=== PATIENT | female | born 1965 | race Caucasian/White ===

== ENCOUNTER 2021-12-23 21:03 | Inpatient (IN) | payer OTHER, SELFPAY ==
--- NOTE | ~2021-12-23 | US_ITS ---
EXAMINATION: US RETROPERITONEAL LIMITED (RENAL ONLY) and renal Doppler exam CLINICAL INFORMATION: Acute kidney insufficiency. Flank pain. Left renal vein thrombus.. COMPARISON: Previous CT of the abdomen and pelvis from yesterday TECHNIQUE: Grayscale and color imaging of the kidneys. Grayscale color and Doppler imaging of the renal arteries and veins. FINDINGS: RIGHT KIDNEY: 10 x 6 x 5.6 cm (SAG x AP x TRV). The kidney is normal in size, contour, and echogenicity. Renal cortical thickness is normal. There are 2 echogenic foci measuring 2 and 4 mm in the midpole questionable for small stones. No stone is appreciated on recent CT. No renal mass. No hydronephrosis. LEFT KIDNEY: 10.6 x 5.4 x 6.2 cm (SAG x AP x TRV). The kidney is normal in size, contour, and echogenicity. Renal cortical thickness is normal. There is a 6 mm echogenic focus in the midpole questionable for stone. No stone is appreciated on yesterday's CT. There is a 1.6 x 1.3 x 1.1 cm cyst in the upper pole. No hydronephrosis. Aortic peak systolic velocity is 87 cm/s. Right renal artery peak systolic velocities are normal measuring 178, 87 and 74 cm/s. Right renal artery to aorta ratio is normal. Resistive indices in the right kidney are slightly elevated measuring 0.8-0.9. The right renal vein is patent. Left renal artery peak systolic velocities are normal measuring 118, 136 and 73 cm/s. Left renal artery to aorta ratio is normal. Resistive indices in the left kidney are slightly elevated measuring 0.8-0.9. The left renal vein is patent. US/US renal BI IMPRESSION: Very limited exam. No evidence of renal vein thrombus. Small bilateral renal echogenic densities questionable for stones. No stone is appreciated on yesterday's CT scan. Small left renal cyst..
--- NOTE | ~2021-12-23 | XR_ITS ---
EXAMINATION: XR CHEST CLINICAL INFORMATION: Chest pain. COMPARISON: None TECHNIQUE: Frontal view of the chest was obtained. FINDINGS: No significant abnormality is noted involving the heart, lungs, mediastinum, bony thorax or soft tissues. XR/XR chest 1V IMPRESSION: No acute cardiopulmonary process.
--- NOTE | ~2021-12-23 | US_ITS ---
EXAMINATION: US VENOUS ULTRASOUND WITH DOPPLER LOWER EXTREMITY, BILATERAL CLINICAL INFORMATION: Lower extremity pain and swelling. COMPARISON: None TECHNIQUE: Ultrasound of the deep veins is performed from the hip to the calf with compression sonography and color and pulse Doppler assessment. Spectral analysis with color-flow imaging is performed. FINDINGS: RIGHT: There is normal venous compression and respiratory variation and augmented flow. The visualized common femoral vein, superficial femoral vein, profunda femoral vein, popliteal vein, and the trifurcation region shows no evidence of deep venous thrombosis. No right popliteal cyst. The subcutaneous soft tissues are unremarkable. LEFT: There is normal venous compression and respiratory variation and augmented flow. The visualized common femoral vein, superficial femoral vein, profunda femoral vein, popliteal vein, and the trifurcation region shows no evidence of deep venous thrombosis. No left popliteal cyst. The subcutaneous soft tissues are unremarkable. If the patient's symptoms persist, followup ultrasound in 5 days 7 days might be of value to exclude proximal propagation from a non-visualized calf vein. US/US venous duplex LE BI IMPRESSION: No evidence for deep venous thrombosis in the visualized veins of the bilateral lower extremities.
--- NOTE | ~2021-12-23 | CT_ITS ---
EXAMINATION: CT ABDOMEN AND PELVIS WITHOUT CONTRAST CLINICAL INFORMATION: Flank pain with acute kidney injury COMPARISON: None TECHNIQUE: Multidetector volumetric imaging was performed from the superior aspect of the liver through the pubic symphysis. Sagittal and coronal reformatted images were obtained on the technologist's workstation. This CT examination was performed using dose optimization techniques as appropriate, variously including the following: *Automated exposure control *Adjustment of mA and/or kV according to patient size (this includes techniques or standardized protocols for targeted exams where dose is matched to indication/reason for exam; i.e. extremities or head) *Use of iterative reconstruction technique DLP: 937 mGy-cm FINDINGS: LUNG BASES: The visualized lung bases are unremarkable. LIVER, GALLBLADDER, AND BILIARY TREE: The liver is normal in size, shape, and attenuation. No focal hepatic lesion or biliary ductal dilatation is present. The gallbladder is unremarkable with no evidence of radiopaque gallstones, gallbladder wall thickening, or obvious pericholecystic inflammatory changes. PANCREAS: Unremarkable. SPLEEN: Unremarkable. ADRENAL GLANDS: Unremarkable. KIDNEYS AND URETERS: The kidneys are normal in size, shape, and attenuation. No hydronephrosis, hydroureter, or calculi seen. There is bilateral nonspecific perinephric stranding, left greater than right. BLADDER: Unremarkable. GASTROINTESTINAL TRACT: The small and large bowel are unremarkable. The appendix has been surgically removed. ABDOMINAL WALL: No significant hernia is appreciated. LYMPH NODES: No retroperitoneal lymphadenopathy. VASCULAR: Calcific plaque present in the infrarenal aorta and iliac arteries without aneurysm. PELVIC VISCERA: An anteverted uterus is present. Tiny calcification present at the fundus on the right. No gross fibroids are seen. An abnormal adnexal mass or free intraperitoneal fluid is not seen. OSSEOUS STRUCTURES: Unremarkable. CT/CT abdomen pelvis wo IV con IMPRESSION: A cause for the patient's flank pain and renal dysfunction is not found. There is some nonspecific perinephric stranding but there is no hydronephrosis or calculi seen. Fleischner guidelines were followed.
--- NOTE | ~2021-12-23 | CT_ITS ---
PROCEDURE: CT GUIDED BIOPSY, KIDNEY CLINICAL INFORMATION: Renal failure. COMPARISON: None TECHNIQUE: Procedure and risks and benefits including bleeding, infection and injury to the kidney were discussed with the patient and informed consent was obtained. The patient was positioned in the prone position. Limited axial images through the kidneys were performed. The left flank was prepped and draped in usual sterile fashion. The skin and soft tissues were anesthetized with 1% lidocaine plain. Using CT guidance and a coaxial system, access to the lower pole the left kidney was obtained. Two (2) 18-gauge core biopsies were obtained. No significant bleeding was observed. Hemostasis was achieved using 3 Gelfoam pledgets. The patient received 0.5 mg of Versed and 25 mcg of fentanyl intravenously during the procedure. Conscious sedation was provided by registered nurse under my direct supervision. Total sedation time was [address] examination was performed using dose optimization techniques as appropriate, variously including the following: *Automated exposure control *Adjustment of mA and/or kV according to patient size (this includes techniques or standardized protocols for targeted exams where dose is matched to indication/reason for exam; i.e. extremities or head) *Use of iterative reconstruction technique DLP: 213 mGy-cm FINDINGS: The kidneys are normal appearing. There is shotty retroperitoneal lymphadenopathy. Postprocedure imaging demonstrates no hematoma surrounding the lower pole the left kidney. CT/CT biopsy renal RT IMPRESSION: CT-guided left renal biopsy.
--- NOTE | ~2021-12-23 | US_ITS ---
EXAMINATION: US RETROPERITONEAL LIMITED (RENAL ONLY) and renal Doppler exam CLINICAL INFORMATION: Acute kidney insufficiency. Flank pain. Left renal vein thrombus.. COMPARISON: Previous CT of the abdomen and pelvis from yesterday TECHNIQUE: Grayscale and color imaging of the kidneys. Grayscale color and Doppler imaging of the renal arteries and veins. FINDINGS: RIGHT KIDNEY: 10 x 6 x 5.6 cm (SAG x AP x TRV). The kidney is normal in size, contour, and echogenicity. Renal cortical thickness is normal. There are 2 echogenic foci measuring 2 and 4 mm in the midpole questionable for small stones. No stone is appreciated on recent CT. No renal mass. No hydronephrosis. LEFT KIDNEY: 10.6 x 5.4 x 6.2 cm (SAG x AP x TRV). The kidney is normal in size, contour, and echogenicity. Renal cortical thickness is normal. There is a 6 mm echogenic focus in the midpole questionable for stone. No stone is appreciated on yesterday's CT. There is a 1.6 x 1.3 x 1.1 cm cyst in the upper pole. No hydronephrosis. Aortic peak systolic velocity is 87 cm/s. Right renal artery peak systolic velocities are normal measuring 178, 87 and 74 cm/s. Right renal artery to aorta ratio is normal. Resistive indices in the right kidney are slightly elevated measuring 0.8-0.9. The right renal vein is patent. Left renal artery peak systolic velocities are normal measuring 118, 136 and 73 cm/s. Left renal artery to aorta ratio is normal. Resistive indices in the left kidney are slightly elevated measuring 0.8-0.9. The left renal vein is patent. US/US renal doppler IMPRESSION: Very limited exam. No evidence of renal vein thrombus. Small bilateral renal echogenic densities questionable for stones. No stone is appreciated on yesterday's CT scan. Small left renal cyst..
[2021-12-23 21:08] VITALS: BP 208/89; PULSE 86; RESP 19; TEMP 36.8; O2SAT 99; BMI 44.9
--- NOTE | 2021-12-23 21:11 | ECG_ITS ---
Test Reason : CHEST PAIN Blood Pressure : / mmHG Vent. Rate : 079 BPM Atrial Rate : 079 BPM P-R Int : 134 ms QRS Dur : 098 ms QT Int : 424 ms P-R-T Axes : 042 002 066 degrees QTc Int : 486 ms Normal sinus rhythm Minimal voltage criteria for LVH, may be normal variant ( [place] product ) Prolonged QT Nonspecific T wave abnormality Abnormal ECG When compared with ECG of 07-MAY-2007 02:01, Nonspecific T wave abnormality now evident in Lateral leads Referred By: Generic ED Physician Electronically Signed By:EDWARD GUY
[2021-12-23 21:20] VITALS: BP 190/90
[2021-12-23 22:02] LABS: MANUAL DIFF FLAG NO
[2021-12-23 22:03] LABS: Basophils Percent Auto 0.5 % (0-2); Eosinophils Absolute Auto 0.2 X10*3/uL (0.0-0.4); Eosinophils Percent Auto 2.9 % (0-4); Hematocrit 25.1 % (37.0-47.0); Hemoglobin 8.4 g/dl (12.0-16.0); Imm Gran Abs Auto 0.03 X10*3/uL (0.00-0.03); Imm Gran Pct Auto 0.4 % (0.0-0.4); Lymphocytes Absolute Auto 0.8 X10*3/uL (1.2-4.9); Lymphocytes Percent Auto 11.2 % (20-40); Mean Corpuscular HGB Conc 33.5 g/dl (31.0-35.0); Mean Corpuscular Hemoglobin 27.5 pg (27.0-33.0); Mean Corpuscular Volume 82.3 fL (80.0-98.0); Mean Platelet Volume 9.8 fL (9.4-12.3); Monocytes Absolute Auto 0.4 X10*3/uL (0.1-1.2); Monocytes Percent Auto 5.9 % (2-11); Neutrophils Percent Auto 79.1 % (45-73); Platelet Count 237 X10*3/uL (160-400); Red Blood Count 3.05 X10*6/uL (4.20-5.50); Red Cell Distribution Width 14.4 % (11.0-16.0); White Blood Count 7.5 X10*3/uL (4.8-10.8)
[2021-12-23 22:07] LABS: Appearance Urine Clear; Color Urine Yellow; Glucose Urine UA >=1000 mg/dL (Negative); Leukocyte Esterase Urine Negative (Negative); Nitrite Urine Negative (Negative); PH 6.5 (5.0-9.0); Urine Blood Small (1+) (Negative); Urine Ketones Negative (Negative); Urine Protein 300 (3+) mg/dL (Neg-Trace)
[2021-12-23 22:13] LABS: Bacteria Urine None Seen (None Seen); Hyaline Casts Urine 0-2 /LPF (0-2); Squamous Epithelial Cell Urine 0-2 /HPF (0-2); WBC Urine 0-5 /HPF (0-5)
[2021-12-23 22:26] LABS: Troponin-I High Sensitivity 5.9 ng/L (<3.5-17.0)
[2021-12-23 22:31] LABS: Anion Gap 16 (12-20); Blood Urea Nitrogen 59 mg/dL (9-16); Calcium 7.9 mg/dL (8.4-10.2); Carbon Dioxide 19 mmol/L (22-29); Chloride 102 mmol/L (96-108); Estimated Glomerular Filt Rate 10; Glucose Random 673 mg/dL (60-115); Potassium 4.2 mmol/L (3.3-5.1); Sodium 133 mmol/L (135-145)
--- NOTE | 2021-12-23 22:35 | ED.CHESTPAIN ---
HPI - Chest Pain General Chief Complaint: Chest Pain Stated Complaint: abnormal labs,chest pains Time Seen by Provider: 12/23/21 22:30 Source: patient Mode of arrival: ambulatory Limitations: no limitations History of Present Illness HPI narrative: 56-year-old past medical history significant for spondyloepiphyseal dysplasia, asthma presenting to the emergency department with abnormal labs per her primary care provider, patient unclear of what labs were abnormal however patient has multiple complaints including severe diffuse abdominal pain, nausea, vomiting , chest pressure, and lightheadedness since this morning. Patient tells me she has not been able to keep anything down today, she reports that she has been vomiting continuously throughout the day and feels very weak and fatigued. Patient also notes that she has been peeing a lot less than usual today and is experiencing a dry mouth. Patient reports that she is having substernal chest pressure, nonradiating, denies shortness of breath. She tells me she feels like she is slightly lightheaded and maybe has a small headache coming on, feels like her typical. MD complaint: chest pain and chest discomfort Related Data Allergies Allergy/AdvReac Type Severity Reaction Status Date / Time cortex Eucommiae Allergy Severe ANAPHYLAXIS Verified 12/23/21 21:10 [CORTEX EUCOMMIAE] egg [EGG] Allergy Severe VOMITING Verified 12/23/21 21:10 latex [LATEX] Allergy Severe HIVES Verified 12/23/21 21:10 Penicillins [PENICILLINS] Allergy Severe HIVES Verified 12/23/21 21:10 vancomycin [VANCOMYCIN] Allergy Severe HIVES Verified 12/23/21 21:10 Review of Systems Review of Systems: Constitutional : No Weight loss, No Fever, No Chills, + Fatigue, + Malaise ENT/Mouth : No sore throat, No Rhinorrhea Eyes: No Eye Pain, No Swelling, No Redness Cardiovascular : + Chest Pain, No SOB, No Dyspnea on Exertion, No Orthopnea, No Edema, No Palpitations Respiratory : No Cough, No Sputum, No Wheezing Gastrointestinal : + Nausea, + Vomiting, No Diarrhea, No Constipation, + abdominal Pain, No Hematochezia, No Melena Genitourinary : No Dysuria, No Urinary Frequency, No Hematuria, Musculoskeletal : No joint pain, No Myalgias, No Joint Swelling Skin : No Skin Lesions, No rash Neuro : No Weakness, No Numbness, No Dizziness, No Headache Psych : No Anxiety/Panic, No Depression All other systems reviewed and are negative Yes all other systems are reviewed and are negative [facility] Past Medical History Attestation statement: The following information was validated with the patient. Source: old records reviewed and nursing notes reviewed Physical Exam Vital Signs: Vital Signs: Last Vital Signs Temp 98.2 F 12/23/21 21:08 Pulse 86 12/23/21 21:08 Resp 19 12/23/21 21:08 BP 208/89 H 12/23/21 21:08 Pulse Ox 99 12/23/21 21:08 O2 Del Method 12/23/21 21:08 BMI result Body Mass Index 44.9 Patient extreamly hypertensive. Appearance: Alert.? Oriented X3.? No acute distress.? Head: Normocephalic, atraumatic, no step-offs or deformities Eyes: Pupils equal, round and reactive to light.? Extraocular movements intact. ENT: Pharynx normal.? Neck: Normal inspection.? Neck supple.? CVS: Normal heart rate and rhythm.? Pulses normal.? Respiratory: No respiratory distress.? Breath sounds normal.? Abdomen: Soft and + RLQ tenderness.? Skin: Skin warm and dry.? Normal skin color.? Normal skin turgor.? Extremities: No lower extremity edema.? No calf ttp. 5/5 strength to bilateral upper and lower extremities. 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 Back: No CVA tenderness Neuro: Oriented X 3.? No motor deficit.? No sensory deficit. CN 2-12 intact . Normal [id number], steady tandem gait with normal coordination MDM - Chest Pain Lab Data Result diagrams: 12/23/21 21:49 12/23/21 21:49 Labs: Lab Results 12/23/21 12/23/21 12/23/21 Range/Units 21:49 21:49 21:49 WBC 7.5 (4.8-10.8) X10*3/uL RBC 3.05 L (4.20-5.50) X10*6/uL Hgb 8.4 L (12.0-16.0) g/dl Hct 25.1 L (37.0-47.0) % MCV 82.3 (80.0-98.0) fL MCH 27.5 (27.0-33.0) pg MCHC 33.5 (31.0-35.0) g/dl RDW 14.4 (11.0-16.0) % Plt Count 237 (160-400) X10*3/uL MPV 9.8 (9.4-12.3) fL Immature Gran % (Auto) 0.4 (0.0-0.4) % Neut % (Auto) 79.1 H (45-73) % Lymph % (Auto) 11.2 L (20-40) % [place] % (Auto) 5.9 (2-11) % Eos % (Auto) 2.9 (0-4) % Baso % (Auto) 0.5 (0-2) % Lymph # (Auto) 0.8 L (1.2-4.9) X10*3/uL [place] # (Auto) 0.4 (0.1-1.2) X10*3/uL Eos # (Auto) 0.2 (0.0-0.4) X10*3/uL Baso # (Auto) 0.0 (0.0-0.2) X10*3/uL Abs Immat Gran (auto) 0.03 (0.00-0.03) X10*3/uL Absolute Neuts (auto) 6.0 (2.0-8.3) x10*3/uL Absolute Nucleated RBC 0.000 (0.0-0.012) X10*3/uL Nucleated RBC % (auto) 0.0 (0.0-0.2) /100WBC Sodium 133 L (135-145) mmol/L Potassium 4.2 (3.3-5.1) mmol/L Chloride 102 (96-108) mmol/L Carbon Dioxide 19 L (22-29) mmol/L Anion Gap 16 (12-20) BUN 59 H (9-16) mg/dL Creatinine 4.74 H* (0.5-1.4) mg/dL Estim Creat Clear Calc 15.0 Estimated GFR 10 Random Glucose 673 H* (60-115) mg/dL Calcium 7.9 L (8.4-10.2) mg/dL Troponin I High Sens 5.9 (<3.5-17.0) ng/L Urine Color Urine Appearance Urine pH (5.0-9.0) Ur Specific [place] (1.005-1.025) Urine Protein (Neg-Trace) mg/dL Urine Glucose (UA) (Negative) mg/dL Urine Ketones (Negative) mg/dL Urine Blood (Negative) Urine Nitrite (Negative) Ur Leukocyte Esterase (Negative) Urine RBC (0-2) /HPF Urine WBC (0-5) /HPF Ur Squamous Epith Cells (0-2) /HPF Urine Bacteria (None Seen) Hyaline Casts (0-2) /LPF 12/23/21 Range/Units 21:49 WBC (4.8-10.8) X10*3/uL RBC (4.20-5.50) X10*6/uL Hgb (12.0-16.0) g/dl Hct (37.0-47.0) % MCV (80.0-98.0) fL MCH (27.0-33.0) pg MCHC (31.0-35.0) g/dl RDW (11.0-16.0) % Plt Count (160-400) X10*3/uL MPV (9.4-12.3) fL Immature Gran % (Auto) (0.0-0.4) % Neut % (Auto) (45-73) % Lymph % (Auto) (20-40) % [place] % (Auto) (2-11) % Eos % (Auto) (0-4) % Baso % (Auto) (0-2) % Lymph # (Auto) (1.2-4.9) X10*3/uL [place] # (Auto) (0.1-1.2) X10*3/uL Eos # (Auto) (0.0-0.4) X10*3/uL Baso # (Auto) (0.0-0.2) X10*3/uL Abs Immat Gran (auto) (0.00-0.03) X10*3/uL Absolute Neuts (auto) (2.0-8.3) x10*3/uL Absolute Nucleated RBC (0.0-0.012) X10*3/uL Nucleated RBC % (auto) (0.0-0.2) /100WBC Sodium (135-145) mmol/L Potassium (3.3-5.1) mmol/L Chloride (96-108) mmol/L Carbon Dioxide (22-29) mmol/L Anion Gap (12-20) BUN (9-16) mg/dL Creatinine (0.5-1.4) mg/dL Estim Creat Clear Calc Estimated GFR Random Glucose (60-115) mg/dL Calcium (8.4-10.2) mg/dL Troponin I High Sens (<3.5-17.0) ng/L Urine Color Yellow Urine Appearance Clear Urine pH 6.5 (5.0-9.0) Ur Specific [place] 1.020 (1.005-1.025) Urine Protein 300 (3+) H (Neg-Trace) mg/dL Urine Glucose (UA) >=1000 H (Negative) mg/dL Urine Ketones Negative (Negative) mg/dL Urine Blood Small (1+) H (Negative) Urine Nitrite Negative (Negative) Ur Leukocyte Esterase Negative (Negative) Urine RBC 6-10 H (0-2) /HPF Urine WBC 0-5 (0-5) /HPF Ur Squamous Epith Cells 0-2 (0-2) /HPF Urine Bacteria None Seen (None Seen) Hyaline Casts 0-2 (0-2) /LPF
[2021-12-23 22:56] LABS: Venous Blood Gas Refer to POC result
[2021-12-23 22:57] VITALS: BP 198/90; PULSE 77; RESP 21; O2SAT 99
--- NOTE | 2021-12-23 23:03 | ED_ITS ---
HPI - General Adult General Chief complaint: Chest Pain Stated complaint: abnormal labs,chest pains Time Seen by Provider: 12/23/21 22:30 History of Present Illness HPI narrative: Patient 56 years old with history of hypertension, diabetes, CKD stage 2? Sent by PCP office for creatinine of 4.7 and blood glucose of 673 patient complaining of bilateral flank pain for last week or so also urinating a lot no fever no chills patient been followed by a singer and unloader and according to her during last visit kidneys were doing good HB A1c around 7 fairly compliant to the insulin no fever no chills no new medication no NSAID use Related Data Home Medications Medication Instructions Recorded Confirmed amlodipine 2.5 mg tablet 1 tab PO DAILY 12/24/21 12/24/21 aspirin 81 mg chewable tablet 1 tab PO DAILY 12/24/21 12/24/21 atorvastatin 80 mg tablet 1 tab PO DAILY 12/24/21 12/24/21 carvedilol 12.5 mg tablet 1 tab PO BID 12/24/21 12/24/21 cholecalciferol (vitamin D3) 50 1 cap PO DAILY 12/24/21 12/24/21 mcg (2,000 unit) capsule (Vitamin D3) cholecalciferol (vitamin D3) 50 1 cap PO DAILY 12/24/21 12/24/21 mcg (2,000 unit) capsule (Vitamin D3) cyanocobalamin (vitamin B-12) 1 tab PO DAILY 12/24/21 12/24/21 1,000 mcg tablet (Vitamin B-12) famotidine 20 mg tablet 1 tab PO DAILY 12/24/21 12/24/21 gabapentin 100 mg capsule 1 cap PO TID 12/24/21 12/24/21 insulin glargine 100 unit/mL (3 unit subcut DAILY PRN Hyperglycemia 12/24/21 mL) subcutaneous pen (Lantus Solostar U-100 Insulin) insulin lispro 100 unit/mL subcut 12/24/21 subcutaneous pen lactulose 10 gram/15 mL oral PO PRN Constipation 12/24/21 solution levetiracetam 500 mg tablet 1 tab PO BID 12/24/21 12/24/21 loperamide 2 mg capsule 2 cap PO BID 12/24/21 12/24/21 pantoprazole 40 mg tablet,delayed 1 tab PO DAILY 12/24/21 12/24/21 release semaglutide 1 mg/dose (2 mg/1.5 mg subcut 12/24/21 mL) subcutaneous pen injector (Ozempic) topiramate 25 mg tablet 1 tab PO DAILY 12/24/21 12/24/21 Allergies Allergy/AdvReac Type Severity Reaction Status Date / Time cortex Eucommiae Allergy Severe ANAPHYLAXIS Verified 12/23/21 21:10 [CORTEX EUCOMMIAE] egg [EGG] Allergy Severe VOMITING Verified 12/23/21 21:10 latex [LATEX] Allergy Severe HIVES Verified 12/23/21 21:10 Penicillins [PENICILLINS] Allergy Severe HIVES Verified 12/23/21 21:10 vancomycin [VANCOMYCIN] Allergy Severe HIVES Verified 12/23/21 21:10 Review of Systems Review of Systems: Yes all other systems are reviewed and are negative [facility] Past Medical History Medical History (Updated 12/24/21 @ 03:35 by Saleem Gresham MD) Diabetes Hyperlipidemia Hypertension Lower back pain Partial deafness Sleep apnea Social History Social History Alcohol intake: never Patient Tobacco Use Status: Never used Tobacco Use of substances other than those prescribed or required for medical reasons: No Advance Directives: No Advance Directives Information Provided: Yes Patient : No Physical Exam ED Vital Signs: Vital Signs - 24 hr 12/23/21 21:08 12/23/21 22:57 12/23/21 23:37 Temperature 98.2 F Pulse Rate 86 77 85 Respiratory Rate 19 21 H 16 Blood Pressure 208/89 H 198/90 H 162/83 H Pulse Oximetry 99 99 Oxygen Delivery Method Room Air Room Air Room Air 12/24/21 01:41 12/24/21 01:55 12/23/21 21:20 Temperature Pulse Rate 66 77 Respiratory Rate 18 13 Blood Pressure 191/104 H 201/76 H 190/90 H Pulse Oximetry 100 100 Oxygen Delivery Method Room Air Room Air 12/24/21 02:38 12/24/21 03:24 Temperature Pulse Rate 69 77 Respiratory Rate 12 18 Blood Pressure 169/75 H 174/72 H Pulse Oximetry 99 97 Oxygen Delivery Method Room Air Room Air BMI result Body Mass Index 44.9 Appearance: Alert. Oriented X3. No acute distress. Eyes:pallor+ ENT: Pharynx normal. Oral Mucosa moist Neck: Normal inspection. Neck supple. CVS: Normal heart rate and rhythm. Pulses normal. Respiratory: No respiratory distress. Equal air entry bilateral, no wheezing/rales/rhonchi Abdomen: Soft and nontender. Bowel sounds are present, no mass palpable, no CVA tenderness Skin: Skin warm and dry. Normal skin color. Normal skin turgor. Extremities: No lower extremity edema. No calf tenderness Neuro: Oriented X 3. No motor deficit. No sensory deficit.No cerebellar signs , cranial nerves II-XII intact Medical Decision Making MDM Narrative Medical decision making narrative: Patient with hyperglycemia and EMIL with history of diabetes will admit patient for further management Lab Data Lab results reviewed: Yes I reviewed the patient's lab results. Result diagrams: 12/24/21 05:06 12/24/21 00:44 Labs: Lab Results 12/23/21 12/23/21 12/23/21 Range/Units 21:49 21:49 21:49 WBC 7.5 (4.8-10.8) X10*3/uL RBC 3.05 L (4.20-5.50) X10*6/uL Hgb 8.4 L (12.0-16.0) g/dl Hct 25.1 L (37.0-47.0) % MCV 82.3 (80.0-98.0) fL MCH 27.5 (27.0-33.0) pg MCHC 33.5 (31.0-35.0) g/dl RDW 14.4 (11.0-16.0) % Plt Count 237 (160-400) X10*3/uL MPV 9.8 (9.4-12.3) fL Immature Gran % (Auto) 0.4 (0.0-0.4) % Neut % (Auto) 79.1 H (45-73) % Lymph % (Auto) 11.2 L (20-40) % [place] % (Auto) 5.9 (2-11) % Eos % (Auto) 2.9 (0-4) % Baso % (Auto) 0.5 (0-2) % Lymph # (Auto) 0.8 L (1.2-4.9) X10*3/uL [place] # (Auto) 0.4 (0.1-1.2) X10*3/uL Eos # (Auto) 0.2 (0.0-0.4) X10*3/uL Baso # (Auto) 0.0 (0.0-0.2) X10*3/uL Abs Immat Gran (auto) 0.03 (0.00-0.03) X10*3/uL Absolute Neuts (auto) 6.0 (2.0-8.3) x10*3/uL Absolute Nucleated RBC 0.000 (0.0-0.012) X10*3/uL Nucleated RBC % (auto) 0.0 (0.0-0.2) /100WBC VBG pH (7.32-7.43) VBG pCO2 mmHg VBG pO2 mmHg VBG HCO3 (22-26) mmol/L VBG O2 Saturation % VBG Base Excess mmol/L Sodium 133 L (135-145) mmol/L Potassium 4.2 (3.3-5.1) mmol/L Chloride 102 (96-108) mmol/L Carbon Dioxide 19 L (22-29) mmol/L Anion Gap 16 (12-20) BUN 59 H (9-16) mg/dL Creatinine 4.74 H* (0.5-1.4) mg/dL Estim Creat Clear Calc 15.0 Estimated GFR 10 POC Glucose (60-115) mg/dL Random Glucose 673 H* (60-115) mg/dL Calcium 7.9 L (8.4-10.2) mg/dL Total Bilirubin 0.2 (0.0-1.0) mg/dL Direct Bilirubin < 0.2 (0.0-0.5) mg/dL AST 10 (5-31) U/L ALT 14 (0-31) U/L Alkaline Phosphatase 142 H (39-117) U/L Troponin I High Sens 5.9 (<3.5-17.0) ng/L Total Protein 6.6 (6.5-8.0) g/dL Albumin 3.1 L (3.5-5.0) g/dL Lipase 93 H (8-78) U/L Urine Color Urine Appearance Urine pH (5.0-9.0) Ur Specific [place] (1.005-1.025) Urine Protein (Neg-Trace) mg/dL Urine Glucose (UA) (Negative) mg/dL Urine Ketones (Negative) mg/dL Urine Blood (Negative) Urine Nitrite (Negative) Ur Leukocyte Esterase (Negative) Urine RBC (0-2) /HPF Urine WBC (0-5) /HPF Ur Squamous Epith Cells (0-2) /HPF Urine Bacteria (None Seen) Hyaline Casts (0-2) /LPF Acetone, Qual (Negative) 12/23/21 12/23/21 12/23/21 Range/Units 21:49 22:42 22:50 WBC (4.8-10.8) X10*3/uL RBC (4.20-5.50) X10*6/uL Hgb (12.0-16.0) g/dl Hct (37.0-47.0) % MCV (80.0-98.0) fL MCH (27.0-33.0) pg MCHC (31.0-35.0) g/dl RDW (11.0-16.0) % Plt Count (160-400) X10*3/uL MPV (9.4-12.3) fL Immature Gran % (Auto) (0.0-0.4) % Neut % (Auto) (45-73) % Lymph % (Auto) (20-40) % [place] % (Auto) (2-11) % Eos % (Auto) (0-4) % Baso % (Auto) (0-2) % Lymph # (Auto) (1.2-4.9) X10*3/uL [place] # (Auto) (0.1-1.2) X10*3/uL Eos # (Auto) (0.0-0.4) X10*3/uL Baso # (Auto) (0.0-0.2) X10*3/uL Abs Immat Gran (auto) (0.00-0.03) X10*3/uL Absolute Neuts (auto) (2.0-8.3) x10*3/uL Absolute Nucleated RBC (0.0-0.012) X10*3/uL Nucleated RBC % (auto) (0.0-0.2) /100WBC VBG pH 7.27 L (7.32-7.43) VBG pCO2 36 mmHg VBG pO2 51 mmHg VBG HCO3 17 L (22-26) mmol/L VBG O2 Saturation 79.0 % VBG Base Excess -8.8 mmol/L Sodium (135-145) mmol/L Potassium (3.3-5.1) mmol/L Chloride (96-108) mmol/L Carbon Dioxide (22-29) mmol/L Anion Gap (12-20) BUN (9-16) mg/dL Creatinine (0.5-1.4) mg/dL Estim Creat Clear Calc Estimated GFR POC Glucose (60-115) mg/dL Random Glucose (60-115) mg/dL Calcium (8.4-10.2) mg/dL Total Bilirubin (0.0-1.0) mg/dL Direct Bilirubin (0.0-0.5) mg/dL AST (5-31) U/L ALT (0-31) U/L Alkaline Phosphatase (39-117) U/L Troponin I High Sens (<3.5-17.0) ng/L Total Protein (6.5-8.0) g/dL Albumin (3.5-5.0) g/dL Lipase (8-78) U/L Urine Color Yellow Urine Appearance Clear Urine pH 6.5 (5.0-9.0) Ur Specific [place] 1.020 (1.005-1.025) Urine Protein 300 (3+) H (Neg-Trace) mg/dL Urine Glucose (UA) >=1000 H (Negative) mg/dL Urine Ketones Negative (Negative) mg/dL Urine Blood Small (1+) H (Negative) Urine Nitrite Negative (Negative) Ur Leukocyte Esterase Negative (Negative) Urine RBC 6-10 H (0-2) /HPF Urine WBC 0-5 (0-5) /HPF Ur Squamous Epith Cells 0-2 (0-2) /HPF Urine Bacteria None Seen (None Seen) Hyaline Casts 0-2 (0-2) /LPF Acetone, Qual Negative (Negative) 12/23/21 12/24/21 Range/Units 23:55 00:44 WBC (4.8-10.8) X10*3/uL RBC (4.20-5.50) X10*6/uL Hgb (12.0-16.0) g/dl Hct (37.0-47.0) % MCV (80.0-98.0) fL MCH (27.0-33.0) pg MCHC (31.0-35.0) g/dl RDW (11.0-16.0) % Plt Count (160-400) X10*3/uL MPV (9.4-12.3) fL Immature Gran % (Auto) (0.0-0.4) % Neut % (Auto) (45-73) % Lymph % (Auto) (20-40) % [place] % (Auto) (2-11) % Eos % (Auto) (0-4) % Baso % (Auto) (0-2) % Lymph # (Auto) (1.2-4.9) X10*3/uL [place] # (Auto) (0.1-1.2) X10*3/uL Eos # (Auto) (0.0-0.4) X10*3/uL Baso # (Auto) (0.0-0.2) X10*3/uL Abs Immat Gran (auto) (0.00-0.03) X10*3/uL Absolute Neuts (auto) (2.0-8.3) x10*3/uL Absolute Nucleated RBC (0.0-0.012) X10*3/uL Nucleated RBC % (auto) (0.0-0.2) /100WBC VBG pH (7.32-7.43) VBG pCO2 mmHg VBG pO2 mmHg VBG HCO3 (22-26) mmol/L VBG O2 Saturation % VBG Base Excess mmol/L Sodium 137 (135-145) mmol/L Potassium 3.5 (3.3-5.1) mmol/L Chloride 108 (96-108) mmol/L Carbon Dioxide 16 L (22-29) mmol/L Anion Gap 17 (12-20) BUN 56 H (9-16) mg/dL Creatinine 4.32 H* (0.5-1.4) mg/dL Estim Creat Clear Calc 16.5 Estimated GFR 11 POC Glucose 252 H (60-115) mg/dL Random Glucose 197 H D (60-115) mg/dL Calcium 7.8 L (8.4-10.2) mg/dL Total Bilirubin (0.0-1.0) mg/dL Direct Bilirubin (0.0-0.5) mg/dL AST (5-31) U/L ALT (0-31) U/L Alkaline Phosphatase (39-117) U/L Troponin I High Sens (<3.5-17.0) ng/L Total Protein (6.5-8.0) g/dL Albumin (3.5-5.0) g/dL Lipase (8-78) U/L Urine Color Urine Appearance Urine pH (5.0-9.0) Ur Specific [place] (1.005-1.025) Urine Protein (Neg-Trace) mg/dL Urine Glucose (UA) (Negative) mg/dL Urine Ketones (Negative) mg/dL Urine Blood (Negative) Urine Nitrite (Negative) Ur Leukocyte Esterase (Negative) Urine RBC (0-2) /HPF Urine WBC (0-5) /HPF Ur Squamous Epith Cells (0-2) /HPF Urine Bacteria (None Seen) Hyaline Casts (0-2) /LPF Acetone, Qual (Negative) ECG Data Attestation: I personally reviewed and interpreted this ECG as follows: Interpretation: Normal sinus rhythm of 79 beats per minute LVH no acute ST wave changes no acute ischemia Critical Care Time Critical Care Time Critical Care Time: Yes Total Critical Care Time: 55 Attestation: I spent 55 minutes of critical care, with interventions, assessments, speaking to patient, consultants, and family. Discharge Plan Discharge Clinical Impression: Acute renal failure (ARF), Hyperglycemia due to diabetes mellitus, Metabolic acidosis Patient Disposition: Admitted As Inpatient
[2021-12-23] MEDS: Insulin Regular, Human 100 UNIT/ML 3 ML VIAL 10 UNIT IVPUSH (23:05)
[2021-12-23] MEDS: 0.9 % Sodium Chloride 1,000 ML 999 ML IV ×2 (23:07→23:08)
--- NOTE | 2021-12-23 23:13 | PC.NURSE ---
pt a&ox3, hypertensive - other vss, medicated per provider order, 20GIV placed in right AC by triage nurse, NaCl running.
[2021-12-23 23:19] LABS: Acetone, serum QL Negative (Negative)
[2021-12-23 23:20] LABS: Alanine Aminotransferase 14 U/L (0-31); Albumin Level 3.1 g/dL (3.5-5.0); Alkaline Phosphatase 142 U/L (39-117); Aspartate Amino Transferase 10 U/L (5-31); Bilirubin Direct < 0.2 mg/dL (0.0-0.5); Bilirubin Total 0.2 mg/dL (0.0-1.0); Lipase 93 U/L (8-78); Total Protein 6.6 g/dL (6.5-8.0)
[2021-12-23 23:23] LABS: VBG Base Excess -8.8 mmol/L; VBG HCO3 17 mmol/L (22-26); VBG pCO2 36 mmHg; VBG pH 7.27 (7.32-7.43); VBG pO2 51 mmHg
[2021-12-23 23:37] VITALS: BP 162/83; PULSE 85; RESP 16
[2021-12-24] VITALS (14 sets, daily range): BP systolic 141–201; BP diastolic 66–104; PULSE 59–77; RESP 10–20; O2SAT 72–100
[2021-12-24] LABS: Glucose, Whole Blood 252 mg/dL (60-115)
[2021-12-24] MEDS: ondansetron HCL 4 MG/2 ML VIAL IVPUSH (00:13)
[2021-12-24] MEDS: Morphine Sulfate 4 MG/ML CARTRIDGE IVPUSH (00:13)
[2021-12-24] MEDS: Midazolam HCl/PF 2 MG/2 ML VIAL 1 MG IVPUSH (00:36)
--- NOTE | 2021-12-24 00:39 | PC.NURSE ---
pt reporting 10/10 pain in bilateral lower extremities - muscle cramping/spasms. pt remains hypertensive, provider notified. medicated per provider order. med rec complete.
[2021-12-24 01:08] LABS: Anion Gap 17 (12-20); Blood Urea Nitrogen 56 mg/dL (9-16); Calcium 7.8 mg/dL (8.4-10.2); Carbon Dioxide 16 mmol/L (22-29); Chloride 108 mmol/L (96-108); Creatinine Clr Calc Pharmacy 16.5; Estimated Glomerular Filt Rate 11; Glucose Random 197 mg/dL (60-115); Potassium 3.5 mmol/L (3.3-5.1); Sodium 137 mmol/L (135-145)
[2021-12-24] MEDS: Sodium Bicarbonate 8.4% 50 MEQ/50 ML SYRINGE IVPUSH (01:49)
[2021-12-24] MEDS: carvediloL 12.5 MG TABLET PO ×3 (02:05→21:58)
[2021-12-24] MEDS: amLODIPine Besylate 5 MG TABLET 2.5 MG PO (02:05)
--- NOTE | 2021-12-24 02:07 | PC.NURSE ---
pt a&ox3, vss - hypertensive, medicated per provider order.
--- NOTE | 2021-12-24 03:25 | PC.NURSE ---
pt is currently asleep, respirations even and unlabored, in no apparent distress at this time, vs stable and ns on the monitor
[2021-12-24] MEDS: Lactated Ringers 1,000 ML 100 ML IVCONT ×2 (04:37→14:21)
--- NOTE | 2021-12-24 04:47 | PC.NURSE ---
pt alert and oriented, skin appropriate for ethnicity, pt reports severe cramping behind her knees states that they also feel very warm. states this has never happened in the past
[2021-12-24 05:34] LABS: MANUAL DIFF FLAG NO
[2021-12-24 05:36] LABS: Basophils Percent Auto 0.4 % (0-2); Eosinophils Absolute Auto 0.2 X10*3/uL (0.0-0.4); Eosinophils Percent Auto 2.9 % (0-4); Imm Gran Abs Auto 0.04 X10*3/uL (0.00-0.03); Imm Gran Pct Auto 0.5 % (0.0-0.4); Lymphocytes Percent Auto 11.7 % (20-40); Mean Corpuscular HGB Conc 33.3 g/dl (31.0-35.0); Mean Corpuscular Hemoglobin 27.7 pg (27.0-33.0); Mean Platelet Volume 9.9 fL (9.4-12.3); Monocytes Absolute Auto 0.6 X10*3/uL (0.1-1.2); Monocytes Percent Auto 6.7 % (2-11); Neutrophils Absolute Auto 6.4 x10*3/uL (2.0-8.3); Neutrophils Percent Auto 77.8 % (45-73); Platelet Count 244 X10*3/uL (160-400); Red Blood Count 2.89 X10*6/uL (4.20-5.50); Red Cell Distribution Width 14.3 % (11.0-16.0); White Blood Count 8.2 X10*3/uL (4.8-10.8)
[2021-12-24 05:55] LABS: Anion Gap 14 (12-20); Blood Urea Nitrogen 54 mg/dL (9-16); Calcium 7.4 mg/dL (8.4-10.2); Carbon Dioxide 20 mmol/L (22-29); Chloride 109 mmol/L (96-108); Creatinine Clr Calc Pharmacy 17.8; Estimated Glomerular Filt Rate 12; Glucose Random 287 mg/dL (60-115); Potassium 3.6 mmol/L (3.3-5.1); Sodium 139 mmol/L (135-145)
--- NOTE | 2021-12-24 05:55 | PC.NURSE ---
pt's saturation drops down to 72% on room air while asleep, pt reports being diagnosed with sleep apnea and is suppose to have a cpap machine but is not set up just yet, saturation go right back up when awake
[2021-12-24] MEDS: Heparin Sodium,Porcine 5,000 UNIT/ML VIAL 5000 UNIT SUBCUT ×3 (06:05→21:58)
[2021-12-24 06:28] LABS: COVID-19 Test Negative (Negative)
--- NOTE | 2021-12-24 06:29 | P.HPHOSP_ITS ---
History of Present Illness Date of Service: 12/24/21 Chief Complaint: Abnormal labs This is a 56-year-old female with past medical history of diabetes, HLD, HTN, CAREY measure for CPAP, underlying CKD, who presents to the hospital with abnormal labs. Patient reports that she went to her PCP for routine labs prior to starting school when she was called by her primary care physician asking her to come to the hospital due to her kidney levels being abnormal. Patient reports throughout the day she was feeling unwell, lightheaded, nauseous, and generally not feeling too well. Patient is complaining of midsternal chest pain, constant, heavy, nonradiating, 5/10 with associated with exertion or relieved with rest. she is also complaining left leg pain, nonradiating, no recent travel or immobility. Patient denies any abdominal pain nausea or vomiting, no diarrhea or constipation, no urinary symptoms. On arrival to the ED patient hemodynamically stable with elevated blood pressure of 208/89 Labs are significant for WBC count of 8.2, hemoglobin of 8.4, hematocrit 25, no previous for comparison, pH of 7.27, sodium of 133, bicarb of 19, BUN of 59, creatinine of 4.74, glucose of 673, UA negative for any acute infection CT abdomen shows no evidence of obstruction. Because of the patient's flank pain and renal dysfunction is not found on the CT abdomen. Patient started on IV fluids and will be admitted for further management Review of Systems Review of Systems: Yes all other systems are reviewed and are negative [facility] Medical History (Updated 12/24/21 @ 06:40 by Serge López MD) Diabetes Hyperlipidemia Hypertension Lower back pain Partial deafness Sleep apnea Family History (Updated 12/24/21 @ 06:35 by Serge López MD) Other No family history of coronary artery disease Surgical History (Updated 12/24/21 @ 06:35 by Serge López MD) History of carpal tunnel surgery Previous back surgery Social History Alcohol intake: never Patient Tobacco Use Status: Never used Tobacco Use of substances other than those prescribed or required for medical reasons: No Advance Directives: No Advance Directives Information Provided: Yes Patient : No Meds Allergies Allergy/AdvReac Type Severity Reaction Status Date / Time cortex Eucommiae Allergy Severe ANAPHYLAXIS Verified 12/23/21 21:10 [CORTEX EUCOMMIAE] egg [EGG] Allergy Severe VOMITING Verified 12/23/21 21:10 latex [LATEX] Allergy Severe HIVES Verified 12/23/21 21:10 Penicillins [PENICILLINS] Allergy Severe HIVES Verified 12/23/21 21:10 vancomycin [VANCOMYCIN] Allergy Severe HIVES Verified 12/23/21 21:10 Active Medications: Current Medications Acetaminophen (Acetaminophen 325 Mg Tablet) 650 mg PO Q6H PRN PRN Reason: Pain, Mild (Pain Scale 1-3) Docusate Sodium (Docusate Sodium 100 Mg Capsule) 100 mg PO DAILY PRN PRN Reason: Constipation Heparin Sodium (Porcine) (Heparin Sodium,Porcine 5,000 Unit/Ml Vial) 5,000 unit SUBCUT Q8H [facility] [place] Last Admin: 12/24/21 06:05 Dose: 5,000 unit Lactated Ringer's (Lr) 1,000 mls @ 100 mls/hr IVCONT .Q10H [facility] [place] Last Admin: 12/24/21 04:37 Dose: 100 mls/hr Ondansetron HCl (Ondansetron Hcl 4 Mg/2 Ml Vial) 4 mg IVPUSH Q8H PRN PRN Reason: Nausea and Vomiting Sodium Chloride (0.9 % Sodium Chloride Flush 3 Ml Syringe) 3 ml IVFLUSH QSHIFT [facility] [place] Home Medications Medication Instructions Recorded Confirmed Last Taken Type amlodipine 2.5 mg tablet 1 tab PO DAILY 12/24/21 12/24/21 12/23/21 08:00 History aspirin 81 mg chewable tablet 1 tab PO DAILY 12/24/21 12/24/21 12/23/21 08:00 History atorvastatin 80 mg tablet 1 tab PO DAILY 12/24/21 12/24/21 12/23/21 08:00 History carvedilol 12.5 mg tablet 1 tab PO BID 12/24/21 12/24/21 12/23/21 08:00 History cholecalciferol (vitamin D3) 50 1 cap PO DAILY 12/24/21 12/24/21 12/23/21 08:00 History mcg (2,000 unit) capsule (Vitamin D3) cholecalciferol (vitamin D3) 50 1 cap PO DAILY 12/24/21 12/24/21 12/23/21 08:00 History mcg (2,000 unit) capsule (Vitamin D3) cyanocobalamin (vitamin B-12) 1 tab PO DAILY 12/24/21 12/24/21 12/23/21 08:00 History 1,000 mcg tablet (Vitamin B-12) famotidine 20 mg tablet 1 tab PO DAILY 12/24/21 12/24/21 12/22/21 21:00 History gabapentin 100 mg capsule 1 cap PO TID 12/24/21 12/24/21 12/23/21 12:00 History insulin glargine 100 unit/mL (3 unit subcut DAILY PRN Hyperglycemia 12/24/21 Unknown History mL) subcutaneous pen (Lantus Solostar U-100 Insulin) insulin lispro 100 unit/mL subcut 12/24/21 Unknown History subcutaneous pen lactulose 10 gram/15 mL oral PO PRN Constipation 12/24/21 Unknown History solution levetiracetam 500 mg tablet 1 tab PO BID 12/24/21 12/24/21 12/23/21 08:00 History loperamide 2 mg capsule 2 cap PO BID 12/24/21 12/24/21 12/23/21 08:00 History pantoprazole 40 mg tablet,delayed 1 tab PO DAILY 12/24/21 12/24/21 12/23/21 08:00 History release semaglutide 1 mg/dose (2 mg/1.5 mg subcut 12/24/21 Unknown History mL) subcutaneous pen injector (Ozempic) topiramate 25 mg tablet 1 tab PO DAILY 12/24/21 12/24/21 12/22/21 21:00 History Physical Exam Vital Signs and Narrative: Vital Signs: Last Vital Signs Temp 98.2 F 12/23/21 21:08 Pulse 77 12/24/21 06:11 Resp 20 12/24/21 06:11 BP 199/77 H 12/24/21 06:11 Pulse Ox 100 12/24/21 06:11 O2 Del Method 12/24/21 06:11 BMI result Body Mass Index 44.9 Const: Other: Patient lying flat in bed, does not appear in distress General: cooperative and no acute distress Orientation/consciousness: patient oriented x3 Eyes: General: appearance normal, both eyes and all related structures Neck: Other: Thick neck Resp: Effort & Inspection: normal respiratory effort Auscultation: clear to auscultation bilaterally Cardio: Rate: regular rate Rhythm: regular rhythm GI: Palpation (GI): Soft to palpation Auscultation: normal bowel sounds Skin: General skin exam: no rashes or lesions noted Neuro: General: patient oriented x3 Cognition (Neuro): normal cognition Extrem: Other: Right extremity does appear a bit more swollen than the left although there is no pitting edema General: Yes normal to inspection and Yes no pedal edema Results Labs CBC and Chem 7: 12/24/21 05:06 12/24/21 05:06 Labs: Laboratory Results - last 24 hr 12/23/21 12/23/21 12/23/21 21:49 21:49 21:49 MCV 82.3 MCH 27.5 MCHC 33.5 RDW 14.4 Plt Count 237 MPV 9.8 Immature Gran % (Auto) 0.4 Neut % (Auto) 79.1 H Lymph % (Auto) 11.2 L Sharp % (Auto) 5.9 Eos % (Auto) 2.9 Baso % (Auto) 0.5 Lymph # (Auto) 0.8 L Sharp # (Auto) 0.4 Eos # (Auto) 0.2 Baso # (Auto) 0.0 Abs Immat Gran (auto) 0.03 Absolute Neuts (auto) 6.0 Absolute Nucleated RBC 0.000 Nucleated RBC % (auto) 0.0 VBG pH VBG pCO2 VBG pO2 VBG HCO3 VBG O2 Saturation VBG Base Excess Anion Gap 16 Estim Creat Clear Calc 15.0 Estimated GFR 10 POC Glucose Random Glucose 673 H* Calcium 7.9 L Total Bilirubin 0.2 Direct Bilirubin < 0.2 AST 10 ALT 14 Alkaline Phosphatase 142 H Total Protein 6.6 Albumin 3.1 L Lipase 93 H Urine Color Yellow Urine Appearance Clear Urine pH 6.5 Ur Specific Edison 1.020 Urine Protein 300 (3+) H Urine Glucose (UA) >=1000 H Urine Ketones Negative Urine Blood Small (1+) H Urine Nitrite Negative Ur Leukocyte Esterase Negative Urine RBC 6-10 H Urine WBC 0-5 Ur Squamous Epith Cells 0-2 Urine Bacteria None Seen Hyaline Casts 0-2 Acetone, Qual COVID-19 (JODY) COVID-19 Clin Com 12/23/21 12/23/21 12/23/21 22:42 22:50 23:55 MCV MCH MCHC RDW Plt Count MPV Immature Gran % (Auto) Neut % (Auto) Lymph % (Auto) Sharp % (Auto) Eos % (Auto) Baso % (Auto) Lymph # (Auto) Sharp # (Auto) Eos # (Auto) Baso # (Auto) Abs Immat Gran (auto) Absolute Neuts (auto) Absolute Nucleated RBC Nucleated RBC % (auto) VBG pH 7.27 L VBG pCO2 36 VBG pO2 51 VBG HCO3 17 L VBG O2 Saturation 79.0 VBG Base Excess -8.8 Anion Gap Estim Creat Clear Calc Estimated GFR POC Glucose 252 H Random Glucose Calcium Total Bilirubin Direct Bilirubin AST ALT Alkaline Phosphatase Total Protein Albumin Lipase Urine Color Urine Appearance Urine pH Ur Specific Edison Urine Protein Urine Glucose (UA) Urine Ketones Urine Blood Urine Nitrite Ur Leukocyte Esterase Urine RBC Urine WBC Ur Squamous Epith Cells Urine Bacteria Hyaline Casts Acetone, Qual Negative COVID-19 (JODY) COVID-19 Clin Com 12/24/21 12/24/21 12/24/21 00:44 05:06 05:06 MCV 83.0 MCH 27.7 MCHC 33.3 RDW 14.3 Plt Count 244 MPV 9.9 Immature Gran % (Auto) 0.5 H Neut % (Auto) 77.8 H Lymph % (Auto) 11.7 L Sharp % (Auto) 6.7 Eos % (Auto) 2.9 Baso % (Auto) 0.4 Lymph # (Auto) 1.0 L Sharp # (Auto) 0.6 Eos # (Auto) 0.2 Baso # (Auto) 0.0 Abs Immat Gran (auto) 0.04 H Absolute Neuts (auto) 6.4 Absolute Nucleated RBC 0.000 Nucleated RBC % (auto) 0.0 VBG pH VBG pCO2 VBG pO2 VBG HCO3 VBG O2 Saturation VBG Base Excess Anion Gap 17 14 Estim Creat Clear Calc 16.5 17.8 Estimated GFR 11 12 POC Glucose Random Glucose 197 H D 287 H Calcium 7.8 L 7.4 L Total Bilirubin Direct Bilirubin AST ALT Alkaline Phosphatase Total Protein Albumin Lipase Urine Color Urine Appearance Urine pH Ur Specific Edison Urine Protein Urine Glucose (UA) Urine Ketones Urine Blood Urine Nitrite Ur Leukocyte Esterase Urine RBC Urine WBC Ur Squamous Epith Cells Urine Bacteria Hyaline Casts Acetone, Qual COVID-19 (JODY) COVID-19 Clin Com 12/24/21 06:08 MCV MCH MCHC RDW Plt Count MPV Immature Gran % (Auto) Neut % (Auto) Lymph % (Auto) Sharp % (Auto) Eos % (Auto) Baso % (Auto) Lymph # (Auto) Sharp # (Auto) Eos # (Auto) Baso # (Auto) Abs Immat Gran (auto) Absolute Neuts (auto) Absolute Nucleated RBC Nucleated RBC % (auto) VBG pH VBG pCO2 VBG pO2 VBG HCO3 VBG O2 Saturation VBG Base Excess Anion Gap Estim Creat Clear Calc Estimated GFR POC Glucose Random Glucose Calcium Total Bilirubin Direct Bilirubin AST ALT Alkaline Phosphatase Total Protein Albumin Lipase Urine Color Urine Appearance Urine pH Ur Specific Edison Urine Protein Urine Glucose (UA) Urine Ketones Urine Blood Urine Nitrite Ur Leukocyte Esterase Urine RBC Urine WBC Ur Squamous Epith Cells Urine Bacteria Hyaline Casts Acetone, Qual COVID-19 (JODY) Negative COVID-19 Clin Com See Note Imaging Radiologist's Impressions: Impressions Chest X-Ray 12/23/21 21:25 IMPRESSION: No acute cardiopulmonary process. Abdomen/Pelvis CT 12/23/21 23:34 IMPRESSION: A cause for the patient's flank pain and renal dysfunction is not found. There is some nonspecific perinephric stranding but there is no hydronephrosis or calculi seen. Fleischner guidelines were followed. Assessment and Plan (1) Acute renal failure (ARF): Status: Acute (2) Hyperglycemia due to diabetes mellitus: Status: Acute (3) Metabolic acidosis: Status: Acute (4) Hypertensive urgency: Status: Acute (5) Right leg swelling: Status: Acute Plan 56-year-old female with past medical history of diabetes, hypertension, hyperl ipidemia, as well as CAREY presents to the hospital with abnormal labs. # EMIL - unclear etiology, possibly dehydration - no evidence of acute infection, no obstruction and CT abdomen -improving with IV fluids - at this time will continue IV fluids - follow BMP - hold nephrotoxic meds - consider renal consult if creatinine continues to remain elevated- although it is improving with fluids # hyperglycemia - likely due to poorly controlled diabetes - no DKA or HHS - has no acetones are ketones - patient reports good control at home - improved with IV insulin in the ED - will continue home insulin, low-dose sliding scale insulin, diabetic diet # sleep apnea - patient reports that she has a CPAP but has not been program to use yet - will start on CPAP at bedtime # metabolic acidosis - likely secondary to uremia - no diabetic ketoacidosis, normal lactic acid - treated with sodium bicarb, with improvement bicarb level - monitor BMP # hypertensive urgency - likely due to missed medications - will resume her home medications - asymptomatic at this time # right lower extremity swelling - on exam right leg appears to be more swollen - patient is complaining of pain in that leg - will obtain venous duplex DVT prophylaxis: Heparin subQ - given patient's acute EMIL requiring IV fluids patient will be admitted for further management and require minimum 2 night hospital stay Quality Stroke Does the patient have a stroke diagnosis?: No VTE Prior VTE?: No VTE Risk Level:: Medical - moderate - high VTE Device Contraindication: Treatment Not Indicated VTE Drug Contraindication: N/A - Med Ordered
[2021-12-24] MEDS: oxyCODONE HCl Immed Release 5 MG TABLET PO ×2 (06:54→21:57)
[2021-12-24] MEDS: hydrALAZINE HCl 20 MG/ML VIAL 5 MG IVPUSH (06:54)
[2021-12-24 07:08] LABS: Glucose, Whole Blood 287 mg/dL (60-115)
[2021-12-24] MEDS: Insulin Lispro 100 UNIT/ML 3 ML VIAL SUBCUT ×4 (07:59→21:59)
[2021-12-24] MEDS: 0.9 % Sodium Chloride Flush 3 ML SYRINGE IVFLUSH (08:01)
--- NOTE | 2021-12-24 08:35 | PC.NURSE ---
called pharmacy to verify pt's home medications that are scheduled for 0900, awaiting verifications
[2021-12-24 08:40] LABS: Ferritin 396 ng/mL (10-250)
--- NOTE | 2021-12-24 09:03 | PHA.MEDREC ---
Addendum entered by Samantha Cordero [facility] 12/24/21 09:14: contacted MD to order Lantus Original Note: Pharmacy Consult ? Medication Reconciliation Pharmacy has completed the medication reconciliation. Spoke with patient in the ED. Verified insulin doses. Patient takes ozempic on saturdays.
[2021-12-24 09:41] LABS: Folate 6.6 ng/mL (> or = 4.0); Vitamin B12 1399 pg/mL (200-900)
--- NOTE | 2021-12-24 10:08 | MHC.CM.PN ---
Attempted to meet with patient in regards to discharge planning. Patient currently on the phone. Will attempt to meet again.
[2021-12-24] MEDS: Aspirin 81 MG TAB.CHEW PO (10:12)
[2021-12-24] MEDS: Cholecalciferol (Vitamin D3) 25 MCG TABLET 50 MCG PO (10:13)
[2021-12-24] MEDS: levETIRAcetam 500 MG TABLET PO ×2 (10:15→21:57)
[2021-12-24] MEDS: Atorvastatin Calcium 80 MG TABLET PO (10:15)
[2021-12-24] MEDS: amLODIPine Besylate 2.5 MG TABLET PO (10:15)
[2021-12-24] MEDS: Cyanocobalamin (Vitamin B-12) 1,000 MCG TABLET 1000 MCG PO (10:15)
[2021-12-24] MEDS: Gabapentin 100 MG CAPSULE PO ×3 (10:15→21:57)
[2021-12-24] MEDS: Omeprazole 20 MG CAPSULE.DR PO (10:15)
[2021-12-24] MEDS: Famotidine 20 MG TABLET PO (10:16)
[2021-12-24] MEDS: Topiramate 25 MG TABLET PO (10:16)
--- NOTE | 2021-12-24 11:58 | P.CONNP_ITS ---
History of Present Illness Reason for Consult Consult date: 12/24/21 Chief Complaint Chief complaint: EMIL History of Present Illness Narrative: 56-year-old female with CKD who follows up with Dr Campa in [place] presented to the hospital with EMIL on routine blood work by PCP.? She was feeling unwell, lightheaded, nauseous, and generally not feeling well with right flank pain.? Patient denies vomiting, diarrhea or urinary symptoms. She has not been taking any NSAID's, ACEI/ARB. In the ER she was found to be quite hypertensive. She was anemic with BUN of 59, creatinine of 4.74. CT abdomen without any contrast shows no evidence of obstruction.? She was started on IV fluids and was admitted for further management. Nephrology has been consulted to assist in her clinical care during her current hospital stay. Review of Systems Review of Systems Yes all other systems are reviewed and are negative [facility] Past Medical History Medical History (Updated 12/24/21 @ 06:40 by Serge López MD) Diabetes Hyperlipidemia Hypertension Lower back pain Partial deafness Sleep apnea Family History Family History (Updated 12/24/21 @ 06:35 by Serge López MD) Other No family history of coronary artery disease Surgical History Surgical History (Updated 12/24/21 @ 06:35 by Serge López MD) History of carpal tunnel surgery Previous back surgery Social History Social History Alcohol intake: never Patient Tobacco Use Status: Never used Tobacco Use of substances other than those prescribed or required for medical reasons: No Advance Directives: No Advance Directives Information Provided: Yes Patient : No Meds Allergies Allergy/AdvReac Type Severity Reaction Status Date / Time cortex Eucommiae Allergy Severe ANAPHYLAXIS Verified 12/23/21 21:10 [CORTEX EUCOMMIAE] egg [EGG] Allergy Severe VOMITING Verified 12/23/21 21:10 latex [LATEX] Allergy Severe HIVES Verified 12/23/21 21:10 Penicillins [PENICILLINS] Allergy Severe HIVES Verified 12/23/21 21:10 vancomycin [VANCOMYCIN] Allergy Severe HIVES Verified 12/23/21 21:10 Active Medications: Current Medications Acetaminophen (Acetaminophen 325 Mg Tablet) 650 mg PO Q6H PRN PRN Reason: Pain, Mild (Pain Scale 1-3) Amlodipine Besylate (Amlodipine Besylate 2.5 Mg Tablet) 2.5 mg PO DAILY [facility]; Protocol Last Admin: 12/24/21 10:15 Dose: 2.5 mg Atorvastatin Calcium (Atorvastatin Calcium 80 Mg Tablet) 80 mg PO DAILY [facility] Last Admin: 12/24/21 10:15 Dose: 80 mg Carvedilol (Carvedilol 12.5 Mg Tablet) 12.5 mg PO BID [facility]; Protocol Last Admin: 12/24/21 10:15 Dose: 12.5 mg Cyanocobalamin (Cyanocobalamin (Vitamin B-12) 1,000 Mcg Tablet) 1,000 mcg PO D AILY [facility] Last Admin: 12/24/21 10:15 Dose: 1,000 mcg Dextrose (Dextrose 50 % 25 Gm/50 Ml Syringe) 25 gm IVPUSH Q15M PRN; Protocol PRN Reason: per Hypoglycemia Standing Ord. Docusate Sodium (Docusate Sodium 100 Mg Capsule) 100 mg PO DAILY PRN PRN Reason: Constipation Famotidine (Famotidine 20 Mg Tablet) 20 mg PO DAILY [facility] Last Admin: 12/24/21 10:16 Dose: 20 mg Gabapentin (Gabapentin 100 Mg Capsule) 100 mg PO TID [facility] Last Admin: 12/24/21 10:15 Dose: 100 mg Glucose (Glucose Gel 15 Gm Gel..Gram.) 15 gm PO Q15M PRN; Protocol PRN Reason: per Hypoglycemia Standing Ord. Heparin Sodium (Porcine) (Heparin Sodium,Porcine 5,000 Unit/Ml Vial) 5,000 unit SUBCUT Q8H [facility] Last Admin: 12/24/21 06:05 Dose: 5,000 unit Lactated Ringer's (Lr) 1,000 mls @ 100 mls/hr IVCONT .Q10H [facility] Last Admin: 12/24/21 04:37 Dose: 100 mls/hr Insulin Glargine (Insulin Glargine,Hum.Rec.Anlog 100 Unit/Ml 10 Ml Vial) 55 unit SUBCUT BID [facility] Insulin Human Lispro (Insulin Lispro 100 Unit/Ml 3 Ml Vial) 0 unit SUBCUT QIDACHS [facility]; Protocol Last Admin: 12/24/21 07:59 Dose: 6 unit Lactulose (Lactulose 20 Gm/30 Ml Solution) 10 gm PO DAILY PRN PRN Reason: Constipation Levetiracetam (Levetiracetam 500 Mg Tablet) 500 mg PO BID [facility] Last Admin: 12/24/21 10:15 Dose: 500 mg Loperamide HCl (Loperamide Hcl 2 Mg Capsule) 2 mg PO Q6H PRN PRN Reason: Diarrhea Omeprazole (Omeprazole 20 Mg Capsule.Dr) 20 mg PO DAILY@0630 [facility] Last Admin: 12/24/21 10:15 Dose: 20 mg Ondansetron HCl (Ondansetron Hcl 4 Mg/2 Ml Vial) 4 mg IVPUSH Q8H PRN PRN Reason: Nausea and Vomiting Sodium Chloride (0.9 % Sodium Chloride Flush 3 Ml Syringe) 3 ml IVFLUSH QSHIFT [facility] Last Admin: 12/24/21 08:01 Dose: 3 ml Topiramate (Topiramate 25 Mg Tablet) 25 mg PO DAILY [facility] Last Admin: 12/24/21 10:16 Dose: 25 mg Vitamin D (Cholecalciferol (Vitamin D3) 25 Mcg Tablet) 50 mcg PO DAILY [facility] Last Admin: 12/24/21 10:13 Dose: 50 mcg Home Medications Medication Instructions Recorded Confirmed Last Taken Type amlodipine 2.5 mg tablet 1 tab PO DAILY 12/24/21 12/24/21 12/23/21 08:00 History aspirin 81 mg chewable tablet 1 tab PO DAILY 12/24/21 12/24/21 12/23/21 08:00 History atorvastatin 80 mg tablet 1 tab PO DAILY 12/24/21 12/24/21 12/23/21 08:00 History betamethasone dipropionate 0.05 % 1 appl topical BID 12/24/21 12/24/21 Unknown History topical ointment calcipotriene 0.005 % topical 1 applic topical BID 12/24/21 12/24/21 Unknown History ointment carvedilol 12.5 mg tablet 1 tab PO BID 12/24/21 12/24/21 12/23/21 08:00 History cholecalciferol (vitamin D3) 50 1 cap PO DAILY 12/24/21 12/24/21 12/23/21 08:00 History mcg (2,000 unit) capsule (Vitamin D3) clindamycin phosphate 1 % topical 1 applic topical BID 12/24/21 12/24/21 Unknown History gel cyanocobalamin (vitamin B-12) 1 tab PO DAILY 12/24/21 12/24/2112/23/22 08:00 History 1,000 mcg tablet (Vitamin B-12) famotidine 20 mg tablet 1 tab PO DAILY 12/24/21 12/24/21 12/22/21 21:00 History gabapentin 100 mg capsule 1 cap PO TID 12/24/21 12/24/21 12/23/21 12:00 History hydrocortisone 2.5 % topical 1 appl topical BID 12/24/21 12/24/21 Unknown History ointment insulin glargine 100 unit/mL (3 55 unit subcut BID 12/24/21 12/24/21 Unknown History mL) subcutaneous pen (Lantus Solostar U-100 Insulin) insulin lispro 100 unit/mL See Protocol subcut TIDAC 12/24/21 12/24/21 Unknown History subcutaneous pen lactulose 10 gram/15 mL oral 15 ml PO DAILY PRN Constipation 12/24/21 12/24/21 Unknown History solution levetiracetam 500 mg tablet 1 tab PO BID 12/24/21 12/24/21 12/23/21 08:00 History loperamide 2 mg capsule 1 cap PO Q6H PRN Diarrhea 12/24/21 12/24/21 12/23/21 08:00 History pantoprazole 40 mg tablet,delayed 1 tab PO DAILY 12/24/21 12/24/21 12/23/21 08:00 History release semaglutide 1 mg/dose (2 mg/1.5 1 mg subcut SA@0900 12/24/21 12/24/21 Unknown History mL) subcutaneous pen injector (Ozempic) topiramate 25 mg tablet 1 tab PO DAILY 12/24/21 12/24/21 12/22/21 21:00 History Physical Exam Vital Signs: Last Vital Signs Temp 98.2 F 12/23/21 21:08 Pulse 68 12/24/21 11:49 Resp 18 12/24/21 11:49 BP 152/73 H 12/24/21 11:49 Pulse Ox 97 12/24/21 07:41 O2 Del Method 12/24/21 07:41 BMI result Body Mass Index 44.9 Const General: no acute distress Orientation/consciousness: patient oriented x3 HEENT Head: Yes normocephalic Eyes EOM: EOMs intact bilaterally Neck Neck: Yes supple Resp Auscultation: diminished lung sounds Cardio Rate: regular rate GI Palpation (GI): Soft to palpation and Tenderness to palpation present (GI) Skin General skin exam: no rashes or lesions noted Neuro General: patient oriented x3 and moves all extremities Results Lab Results Result Diagrams: 12/24/21 05:06 12/24/21 05:06 Lab results: Chemistry 12/23/21 12/24/21 12/24/21 21:49 00:44 05:06 Sodium 133 L 137 139 Potassium 4.2 3.5 3.6 Carbon Dioxide 19 L 16 L 20 L BUN 59 H 56 H 54 H Creatinine 4.74 H* 4.32 H* 4.01 H* Calcium 7.9 L 7.8 L 7.4 L Hematology 12/23/21 12/24/21 21:49 05:06 WBC 7.5 8.2 Hgb 8.4 L 8.0 L Plt Count 237 244 Urinalysis 12/23/21 21:49 Urine Color Yellow Urine Appearance Clear Urine pH 6.5 Ur Specific [place] 1.020 Urine Protein 300 (3+) H Urine Glucose (UA) >=1000 H Urine Ketones Negative Urine Blood Small (1+) H Urine Nitrite Negative Ur Leukocyte Esterase Negative Urine RBC 6-10 H Urine WBC 0-5 Ur Squamous Epith Cells 0-2 Hyaline Casts 0-2 Assessment and Plan (1) Acute renal failure (ARF): Status: Acute Plan Had been having CKD 3 at baseline EMIL - Broad Differential; No obstruction Needs to R/O renal arterial/venous thrombosis- Doppler ordered ATN versus Progression of diabetic renal disease Had not been on ACEI/ARB/NSAID's Work up ordered; Hold Aspirin Likely will need renal biopsy on Tuesday No indication for renal replacement now Continue rest of current supportive care Labs AM; Shall closely follow up Procedures Date of Service Date of Service: 12/24/21
--- NOTE | 2021-12-24 12:34 | HO.PM.IMPN ---
Subjective Subjective Date of Service: 12/24/21 Interval History: seen and examined this morning Follow-up for EMIL reporting b/l flank pain right greater then left denies dysuria, fever or chills Review of Systems Review of Systems: Yes all other systems are reviewed and are negative Constitutional Constitutional: Denies chills and Denies fever(s) ENT Ears, Nose, Mouth, and Throat: Denies dizziness Cardiovascular Cardiovascular: Denies chest pain and Denies dyspnea Respiratory Respiratory: Denies dyspnea Neurologic Neurologic: Denies dizziness Physical Exam Vital Signs: Vital Signs: Last Vital Signs Temp 98.2 F 12/23/21 21:08 Pulse 63 12/24/21 12:26 Resp 13 12/24/21 12:26 BP 163/81 H 12/24/21 12:26 Pulse Ox 98 12/24/21 12:26 O2 Del Method 12/24/21 12:26 BMI result Body Mass Index 44.9 Const: General: cooperative, comfortable, alert and awake Nutritional Appearance: overweight Orientation/consciousness: patient oriented x3 Resp: Effort & Inspection: normal respiratory effort and able to speak in complete sentences Auscultation: clear to auscultation bilaterally Cardio: Rate: regular rate Heart sounds: S1 normal heart sound present and S2 normal heart sound present GI: Inspection: No distended Palpation (GI): Soft to palpation : Other: right General: Yes CVA tenderness Back/Spine/Pelvis: Back: CVA tenderness Neuro: Other: grossly nonfocal General: patient oriented x3 Extrem: General: Yes no pedal edema Objective Data Active Medications Acetaminophen (Acetaminophen 325 Mg Tablet) 650 mg PO Q6H PRN PRN Reason: Pain, Mild (Pain Scale 1-3) Amlodipine Besylate (Amlodipine Besylate 2.5 Mg Tablet) 2.5 mg PO DAILY [facility]; Protocol Last Admin: 12/24/21 10:15 Dose: 2.5 mg Documented By: BENJAMIN Atorvastatin Calcium (Atorvastatin Calcium 80 Mg Tablet) 80 mg PO DAILY [facility] Last Admin: 12/24/21 10:15 Dose: 80 mg Documented By: BENJAMIN Carvedilol (Carvedilol 12.5 Mg Tablet) 12.5 mg PO BID [facility]; Protocol Last Admin: 12/24/21 10:15 Dose: 12.5 mg Documented By: BENJAMIN Cyanocobalamin (Cyanocobalamin (Vitamin B-12) 1,000 Mcg Tablet) 1,000 mcg PO DAILY [facility] Last Admin: 12/24/21 10:15 Dose: 1,000 mcg Documented By: BENJAMIN Dextrose (Dextrose 50 % 25 Gm/50 Ml Syringe) 25 gm IVPUSH Q15M PRN; Protocol PRN Reason: per Hypoglycemia Standing Ord. Docusate Sodium (Docusate Sodium 100 Mg Capsule) 100 mg PO DAILY PRN PRN Reason: Constipation Famotidine (Famotidine 20 Mg Tablet) 20 mg PO DAILY [facility] Last Admin: 12/24/21 10:16 Dose: 20 mg Documented By: BENJAMIN Gabapentin (Gabapentin 100 Mg Capsule) 100 mg PO TID [facility] Last Admin: 12/24/21 10:15 Dose: 100 mg Documented By: BENJAMIN Glucose (Glucose Gel 15 Gm Gel..Gram.) 15 gm PO Q15M PRN; Protocol PRN Reason: per Hypoglycemia Standing Ord. Heparin Sodium (Porcine) (Heparin Sodium,Porcine 5,000 Unit/Ml Vial) 5,000 unit SUBCUT Q8H [facility] Last Admin: 12/24/21 06:05 Dose: 5,000 unit Documented By: KUSHAL Lactated Ringer's (Lr) 1,000 mls @ 100 mls/hr IVCONT .Q10H [facility] Last Admin: 12/24/21 04:37 Dose: 100 mls/hr Documented By: KUSHAL Insulin Glargine (Insulin Glargine,Hum.Rec.Anlog 100 Unit/Ml 10 Ml Vial) 55 unit SUBCUT BID [facility] Insulin Human Lispro (Insulin Lispro 100 Unit/Ml 3 Ml Vial) 0 unit SUBCUT QIDACHS [facility]; Protocol Last Admin: 12/24/21 07:59 Dose: 6 unit Documented By: BENJAMIN Lactulose (Lactulose 20 Gm/30 Ml Solution) 10 gm PO DAILY PRN PRN Reason: Constipation Levetiracetam (Levetiracetam 500 Mg Tablet) 500 mg PO BID [facility] Last Admin: 12/24/21 10:15 Dose: 500 mg Documented By: BENJAMIN Loperamide HCl (Loperamide Hcl 2 Mg Capsule) 2 mg PO Q6H PRN PRN Reason: Diarrhea Omeprazole (Omeprazole 20 Mg Capsule.Dr) 20 mg PO DAILY@0630 [facility] Last Admin: 12/24/21 10:15 Dose: 20 mg Documented By: BENJAMIN Ondansetron HCl (Ondansetron Hcl 4 Mg/2 Ml Vial) 4 mg IVPUSH Q8H PRN PRN Reason: Nausea and Vomiting Sodium Chloride (0.9 % Sodium Chloride Flush 3 Ml Syringe) 3 ml IVFLUSH QSHIFT [facility] Last Admin: 12/24/21 08:01 Dose: 3 ml Documented By: BENJAMIN Topiramate (Topiramate 25 Mg Tablet) 25 mg PO DAILY [facility] Last Admin: 12/24/21 10:16 Dose: 25 mg Documented By: BENJAMIN Vitamin D (Cholecalciferol (Vitamin D3) 25 Mcg Tablet) 50 mcg PO DAILY [facility] Last Admin: 12/24/21 10:13 Dose: 50 mcg Documented By: BENJAMIN Comments: Labs CBC & Chem 7: 12/24/21 05:06 12/24/21 05:06 Labs: Laboratory Results - last 24 hr 12/23/21 12/23/21 12/23/21 21:49 21:49 21:49 MCV 82.3 MCH 27.5 MCHC 33.5 RDW 14.4 Plt Count 237 MPV 9.8 Immature Gran % (Auto) 0.4 Neut % (Auto) 79.1 H Lymph % (Auto) 11.2 L [place] % (Auto) 5.9 Eos % (Auto) 2.9 Baso % (Auto) 0.5 Lymph # (Auto) 0.8 L [place] # (Auto) 0.4 Eos # (Auto) 0.2 Baso # (Auto) 0.0 Abs Immat Gran (auto) 0.03 Absolute Neuts (auto) 6.0 Absolute Nucleated RBC 0.000 Nucleated RBC % (auto) 0.0 VBG pH VBG pCO2 VBG pO2 VBG HCO3 VBG O2 Saturation VBG Base Excess Anion Gap 16 Estim Creat Clear Calc 15.0 Estimated GFR 10 POC Glucose Random Glucose 673 H* Calcium 7.9 L Ferritin Total Bilirubin 0.2 Direct Bilirubin < 0.2 AST 10 ALT 14 Alkaline Phosphatase 142 H Total Protein 6.6 Albumin 3.1 L Lipase 93 H Vitamin B12 Folate Urine Color Yellow Urine Appearance Clear Urine pH 6.5 Ur Specific [place] 1.020 Urine Protein 300 (3+) H Urine Glucose (UA) >=1000 H Urine Ketones Negative Urine Blood Small (1+) H Urine Nitrite Negative Ur Leukocyte Esterase Negative Urine RBC 6-10 H Urine WBC 0-5 Ur Squamous Epith Cells 0-2 Urine Bacteria None Seen Hyaline Casts 0-2 Acetone, Qual COVID-19 (JODY) COVID-19 Clin Com 12/23/21 12/23/21 12/23/21 22:42 22:50 23:55 MCV MCH MCHC RDW Plt Count MPV Immature Gran % (Auto) Neut % (Auto) Lymph % (Auto) [place] % (Auto) Eos % (Auto) Baso % (Auto) Lymph # (Auto) [place] # (Auto) Eos # (Auto) Baso # (Auto) Abs Immat Gran (auto) Absolute Neuts (auto) Absolute Nucleated RBC Nucleated RBC % (auto) VBG pH 7.27 L VBG pCO2 36 VBG pO2 51 VBG HCO3 17 L VBG O2 Saturation 79.0 VBG Base Excess -8.8 Anion Gap Estim Creat Clear Calc Estimated GFR POC Glucose 252 H Random Glucose Calcium Ferritin Total Bilirubin Direct Bilirubin AST ALT Alkaline Phosphatase Total Protein Albumin Lipase Vitamin B12 Folate Urine Color Urine Appearance Urine pH Ur Specific [place] Urine Protein Urine Glucose (UA) Urine Ketones Urine Blood Urine Nitrite Ur Leukocyte Esterase Urine RBC Urine WBC Ur Squamous Epith Cells Urine Bacteria Hyaline Casts Acetone, Qual Negative COVID-19 ([facility]) COVID-19 Clin Com 12/24/21 12/24/21 12/24/21 00:44 05:06 05:06 MCV 83.0 MCH 27.7 MCHC 33.3 RDW 14.3 Plt Count 244 MPV 9.9 Immature Gran % (Auto) 0.5 H Neut % (Auto) 77.8 H Lymph % (Auto) 11.7 L [place] % (Auto) 6.7 Eos % (Auto) 2.9 Baso % (Auto) 0.4 Lymph # (Auto) 1.0 L [place] # (Auto) 0.6 Eos # (Auto) 0.2 Baso # (Auto) 0.0 Abs Immat Gran (auto) 0.04 H Absolute Neuts (auto) 6.4 Absolute Nucleated RBC 0.000 Nucleated RBC % (auto) 0.0 VBG pH VBG pCO2 VBG pO2 VBG HCO3 VBG O2 Saturation VBG Base Excess Anion Gap 17 14 Estim Creat Clear Calc 16.5 17.8 Estimated GFR 11 12 POC Glucose Random Glucose 197 H D 287 H Calcium 7.8 L 7.4 L Ferritin 396 H Total Bilirubin Direct Bilirubin AST ALT Alkaline Phosphatase Total Protein Albumin Lipase Vitamin B12 Folate Urine Color Urine Appearance Urine pH Ur Specific [place] Urine Protein Urine Glucose (UA) Urine Ketones Urine Blood Urine Nitrite Ur Leukocyte Esterase Urine RBC Urine WBC Ur Squamous Epith Cells Urine Bacteria Hyaline Casts Acetone, Qual COVID-19 ([facility]) COVID-19 Clin Com 12/24/21 12/24/21 12/24/21 05:06 06:08 07:03 MCV MCH MCHC RDW Plt Count MPV Immature Gran % (Auto) Neut % (Auto) Lymph % (Auto) [place] % (Auto) Eos % (Auto) Baso % (Auto) Lymph # (Auto) [place] # (Auto) Eos # (Auto) Baso # (Auto) Abs Immat Gran (auto) Absolute Neuts (auto) Absolute Nucleated RBC Nucleated RBC % (auto) VBG pH VBG pCO2 VBG pO2 VBG HCO3 VBG O2 Saturation VBG Base Excess Anion Gap Estim Creat Clear Calc Estimated GFR POC Glucose 287 H Random Glucose Calcium Ferritin Total Bilirubin Direct Bilirubin AST ALT Alkaline Phosphatase Total Protein Albumin Lipase Vitamin B12 1399 H Folate 6.6 Urine Color Urine Appearance Urine pH Ur Specific [place] Urine Protein Urine Glucose (UA) Urine Ketones Urine Blood Urine Nitrite Ur Leukocyte Esterase Urine RBC Urine WBC Ur Squamous Epith Cells Urine Bacteria Hyaline Casts Acetone, Qual COVID-19 (JODY) Negative COVID-19 Clin Com See Note Assessment and Plan (1) Hypertensive urgency: Status: Acute (2) Acute renal failure (ARF): Status: Acute Plan 56-year-old female with past medical history of diabetes, hypertension, hyperlipidemia, as well as CAREY presents to the hospital with abnormal labs. EMIL on CKD3 no obstruction on CT abdomen - continue IV fluids - follow BMP - hold nephrotoxic meds - seen by Nephrology- rule out renal arterial/ venous thrombosis- renal Doppler pending; hold aspirin in preparation for possible kidney biopsy hyperglycemia improved with IV insulin in the ED - will continue home insulin, low-dose sliding scale insulin, diabetic diet sleep apnea - patient reports that she has a CPAP but has not had titration study yet - will start on CPAP at bedtime metabolic acidosis likely secondary to EMIL no diabetic ketoacidosis, normal lactic acid treated with sodium bicarb, with improvement bicarb level - monitor BMP hypertensive urgency likely due to missed medications. bp improving BP improving - resume home norvasc, coreg chronic anemia likely anemia of chronic dz H/H at baseline right lower extremity swelling patient is complaining of pain in that leg b/l LE US negative for DVT Morbid obesity BMI 45.0 weight loss encouraged DVT prophylaxis: Heparin subQ attending - dr. burns patient requires ongoing inpatient hospitalization due to EMIL and further workup Quality Stroke Does the patient have a stroke diagnosis?: No VTE Prior VTE?: No VTE Risk Level:: Medical - moderate - high VTE Device Contraindication: Treatment Not Indicated VTE Drug Contraindication: N/A - Med Ordered
[2021-12-24] MEDS: Acetaminophen 325 MG TABLET 650 MG PO (13:51)
[2021-12-24] MEDS: Morphine Sulfate 2 MG/ML CARTRIDGE IVPUSH ×2 (16:01→21:59)
[2021-12-24 16:12] LABS: Glucose, Whole Blood 236 mg/dL (60-115)
--- NOTE | 2021-12-24 19:48 | PC.NURSE ---
report recived from adryan RN - pt up eating dinner. resting comfortably. blood sugar obtained - 383. will give 10 units insulin lispro per mar and notiffred AMADOR. call dean within reach. pt has no current complaints. will continue to monitor
[2021-12-24 19:59] LABS: Glucose, Whole Blood 383 mg/dL (60-115)
[2021-12-24 21:55] LABS: Glucose, Whole Blood 390 mg/dL (60-115)
[2021-12-24] MEDS: Insulin Glargine,Hum.rec.anlog 100 UNIT/ML 10 ML VIAL 55 UNIT SUBCUT (21:58)
--- NOTE | 2021-12-24 22:13 | PC.NURSE ---
bedtime meds given - vital signs updated. patient wearing cpap machine to sleep. on nurse advisor. call dean within reach. will continue to monitor
[2021-12-25] VITALS (8 sets, daily range): BP systolic 123–162; BP diastolic 56–76; PULSE 64–77; RESP 10–20; TEMP 35.9–36.6; O2SAT 95–100
[2021-12-25] MEDS: Lactated Ringers 1,000 ML 100 ML IVCONT ×3 (00:49→21:53)
[2021-12-25] MEDS: 0.9 % Sodium Chloride Flush 3 ML SYRINGE IVFLUSH ×2 (00:56→10:17)
[2021-12-25] MEDS: Heparin Sodium,Porcine 5,000 UNIT/ML VIAL 5000 UNIT SUBCUT ×3 (05:23→20:20)
[2021-12-25] MEDS: Omeprazole 20 MG CAPSULE.DR PO (05:23)
[2021-12-25] MEDS: oxyCODONE HCl Immed Release 5 MG TABLET PO ×3 (05:28→23:58)
[2021-12-25 07:30] LABS: Glucose, Whole Blood 141 mg/dL (60-115)
[2021-12-25 07:51] LABS: Vitamin D 25-OH Total 13.6 ng/mL (>30)
[2021-12-25 07:54] LABS: Anion Gap 14 (12-20); Blood Urea Nitrogen 50 mg/dL (9-16); Calcium 7.8 mg/dL (8.4-10.2); Carbon Dioxide 21 mmol/L (22-29); Chloride 109 mmol/L (96-108); Creatinine Clr Calc Pharmacy 14.9; Estimated Glomerular Filt Rate 9; Glucose Random 143 mg/dL (60-115); Phosphorus 5.1 mg/dL (2.7-4.5); Sodium 140 mmol/L (135-145)
[2021-12-25 08:09] LABS: Lactate Dehydrogenase 236 U/L (122-220)
[2021-12-25] MEDS: Topiramate 25 MG TABLET PO (09:46)
[2021-12-25] MEDS: amLODIPine Besylate 5 MG TABLET PO (09:46)
[2021-12-25] MEDS: Gabapentin 100 MG CAPSULE PO ×3 (09:46→20:22)
[2021-12-25] MEDS: Cyanocobalamin (Vitamin B-12) 1,000 MCG TABLET 1000 MCG PO (09:46)
[2021-12-25] MEDS: Atorvastatin Calcium 80 MG TABLET PO (09:46)
[2021-12-25] MEDS: Famotidine 20 MG TABLET PO (09:46)
[2021-12-25] MEDS: carvediloL 12.5 MG TABLET PO ×2 (09:46→20:22)
[2021-12-25] MEDS: Cholecalciferol (Vitamin D3) 25 MCG TABLET 50 MCG PO (09:46)
[2021-12-25] MEDS: levETIRAcetam 500 MG TABLET PO ×2 (09:46→20:22)
[2021-12-25] MEDS: Morphine Sulfate 2 MG/ML CARTRIDGE IVPUSH ×2 (09:47→21:59)
[2021-12-25] MEDS: ondansetron HCL 4 MG/2 ML VIAL IVPUSH (09:47)
[2021-12-25] MEDS: Insulin Glargine,Hum.rec.anlog 100 UNIT/ML 10 ML VIAL 55 UNIT SUBCUT ×2 (09:47→20:21)
--- NOTE | 2021-12-25 09:53 | MHC.CM.PN ---
PATIENT LIVES WITH HER SPOUSE USES WALKER, OTHERWISE INDEPENDENT AT HOME AND COMMUNITY ASSESSED BY OK WILL BE RECEIVING 7.5 HOURS WEEKLY MRNA X3 HCP- COPY REQUESTED PCP: GAY SMITH [facility] WILL TRANSPORT D/C PLAN: HOME SELF-CARE
--- NOTE | 2021-12-25 09:56 | MHC.CLN ---
NUTRITION DIET CHANGED TO DIABETIC 1800 KCAL, 2 GRAM SODIUM. PATIENT WITH DX DM AND CKD 3.
[2021-12-25] MEDS: Docusate Sodium 100 MG CAPSULE PO (10:16)
[2021-12-25 11:14] LABS: Glucose, Whole Blood 249 mg/dL (60-115)
[2021-12-25] MEDS: Insulin Lispro 100 UNIT/ML 3 ML VIAL SUBCUT ×3 (12:00→20:22)
--- NOTE | 2021-12-25 12:51 | HO.PM.IMPN ---
Subjective Subjective Date of Service: 12/25/21 Interval History: Seen and examined this morning Follow-up for EMIL Still reporting some right-sided flank pain, but still having bilateral lower extremity cramping Denies fever, chills Review of Systems Review of Systems: Yes all other systems are reviewed and are negative Constitutional Constitutional: Denies chills and Denies fever(s) ENT Ears, Nose, Mouth, and Throat: Denies dizziness Cardiovascular Cardiovascular: Denies chest pain, Denies palpitations and Denies dyspnea Respiratory Respiratory: Denies cough and Denies dyspnea Gastrointestinal Gastrointestinal: Reports abdominal pain and Denies vomiting Neurologic Neurologic: Denies dizziness Endocrine Endocrine: Denies palpitations Physical Exam Vital Signs: Vital Signs: Last Vital Signs Temp 96.6 F L 12/25/21 10:55 Pulse 71 12/25/21 10:55 Resp 18 12/25/21 10:55 BP 124/56 L 12/25/21 10:55 Pulse Ox 95 12/25/21 10:55 O2 Del Method 12/25/21 10:55 BMI result Body Mass Index 44.9 Const: General: cooperative, comfortable, alert and awake Nutritional Appearance: overweight Orientation/consciousness: patient oriented x3 Resp: Effort & Inspection: normal respiratory effort and able to speak in complete sentences Auscultation: clear to auscultation bilaterally Cardio: Rate: regular rate Heart sounds: S1 normal heart sound present and S2 normal heart sound present GI: Inspection: No distended Palpation (GI): Soft to palpation Neuro: Other: grossly nonfocal General: patient oriented x3 Extrem: General: Yes no pedal edema Objective Data Active Medications Acetaminophen (Acetaminophen 325 Mg Tablet) 650 mg PO Q6H PRN PRN Reason: Pain, Mild (Pain Scale 1-3) Last Admin: 12/24/21 13:51 Dose: 650 mg Documented By: KUSHAL Amlodipine Besylate (Amlodipine Besylate 5 Mg Tablet) 5 mg PO DAILY [facility]; Protocol Last Admin: 12/25/21 09:46 Dose: 5 mg Documented By: JARETH Atorvastatin Calcium (Atorvastatin Calcium 80 Mg Tablet) 80 mg PO DAILY [facility] Last Admin: 12/25/21 09:46 Dose: 80 mg Documented By: JARETH Carvedilol (Carvedilol 12.5 Mg Tablet) 12.5 mg PO BID [facility]; Protocol Last Admin: 12/25/21 09:46 Dose: 12.5 mg Documented By: JARETH Cyanocobalamin (Cyanocobalamin (Vitamin B-12) 1,000 Mcg Tablet) 1,000 mcg PO DAILY [facility] Last Admin: 12/25/21 09:46 Dose: 1,000 mcg Documented By: JARETH Dextrose (Dextrose 50 % 25 Gm/50 Ml Syringe) 25 gm IVPUSH Q15M PRN; Protocol PRN Reason: per Hypoglycemia Standing Ord. Docusate Sodium (Docusate Sodium 100 Mg Capsule) 100 mg PO DAILY PRN PRN Reason: Constipation Last Admin: 12/25/21 10:16 Dose: 100 mg Documented By: JARETH Famotidine (Famotidine 20 Mg Tablet) 20 mg PO DAILY [facility] Last Admin: 12/25/21 09:46 Dose: 20 mg Documented By: JARETH Gabapentin (Gabapentin 100 Mg Capsule) 100 mg PO TID [facility] Last Admin: 12/25/21 09:46 Dose: 100 mg Documented By: JARETH Glucose (Glucose Gel 15 Gm Gel..Gram.) 15 gm PO Q15M PRN; Protocol PRN Reason: per Hypoglycemia Standing Ord. Heparin Sodium (Porcine) (Heparin Sodium,Porcine 5,000 Unit/Ml Vial) 5,000 unit SUBCUT Q8H [facility] Last Admin: 12/25/21 05:23 Dose: 5,000 unit Documented By: VERNA Lactated Ringer's (Lr) 1,000 mls @ 100 mls/hr IVCONT .Q10H [facility] Last Infusion: 12/25/21 11:44 Dose: 0 mls/hr Documented By: JARETH Insulin Glargine (Insulin Glargine,Hum.Rec.Anlog 100 Unit/Ml 10 Ml Vial) 55 unit SUBCUT BID [facility] Last Admin: 12/25/21 09:47 Dose: 55 unit Documented By: JARETH Insulin Human Lispro (Insulin Lispro 100 Unit/Ml 3 Ml Vial) 0 unit SUBCUT QIDACHS [facility]; Protocol Last Admin: 12/25/21 12:00 Dose: 4 unit Documented By: JARETH Lactulose (Lactulose 20 Gm/30 Ml Solution) 10 gm PO DAILY PRN PRN Reason: Constipation Levetiracetam (Levetiracetam 500 Mg Tablet) 500 mg PO BID [facility] Last Admin: 12/25/21 09:46 Dose: 500 mg Documented By: JARETH Loperamide HCl (Loperamide Hcl 2 Mg Capsule) 2 mg PO Q6H PRN PRN Reason: Diarrhea Morphine Sulfate (Morphine Sulfate 2 Mg/Ml Cartridge) 2 mg IVPUSH Q4H PRN; Protocol PRN Reason: Pain, Severe (Pain Scale 7-10) Last Admin: 12/25/21 09:47 Dose: 2 mg Documented By: JARETH Omeprazole (Omeprazole 20 Mg Capsule.Dr) 20 mg PO DAILY@0630 [facility] Last Admin: 12/25/21 05:23 Dose: 20 mg Documented By: VERNA Ondansetron HCl (Ondansetron Hcl 4 Mg/2 Ml Vial) 4 mg IVPUSH Q8H PRN PRN Reason: Nausea and Vomiting Last Admin: 12/25/21 09:47 Dose: 4 mg Documented By: JARETH Oxycodone HCl (Oxycodone Hcl Immed Release 5 Mg Tablet) 5 mg PO Q6H PRN PRN Reason: Pain, Moderate (Pain Scale 4-6 Last Admin: 12/25/21 05:28 Dose: 5 mg Documented By: VERNA Sodium Chloride (0.9 % Sodium Chloride Flush 3 Ml Syringe) 3 ml IVFLUSH QSHIFT [facility] Last Admin: 12/25/21 10:17 Dose: 3 ml Documented By: JARETH Topiramate (Topiramate 25 Mg Tablet) 25 mg PO DAILY [facility] Last Admin: 12/25/21 09:46 Dose: 25 mg Documented By: JARETH Vitamin D (Cholecalciferol (Vitamin D3) 25 Mcg Tablet) 50 mcg PO DAILY [facility] Last Admin: 12/25/21 09:46 Dose: 50 mcg Documented By: JARETH Labs CBC & Chem 7: 12/24/21 05:06 12/25/21 06:07 Labs: Laboratory Results - last 24 hr 12/24/21 12/24/21 12/24/21 13:46 19:47 21:50 Anion Gap Estim Creat Clear Calc Estimated GFR POC Glucose 236 H 383 H* 390 H* Random Glucose Calcium Phosphorus Lactate Dehydrogenase 25-OH Vitamin D Total 12/25/21 12/25/21 12/25/21 06:07 07:22 10:57 Anion Gap 14 Estim Creat Clear Calc 14.9 Estimated GFR 9 POC Glucose 141 H 249 H Random Glucose 143 H Calcium 7.8 L Phosphorus 5.1 H Lactate Dehydrogenase 236 H 25-OH Vitamin D Total 13.6 Assessment and Plan (1) Acute renal failure (ARF): Status: Acute Plan 56-year-old female with past medical history of diabetes, hypertension, hyperlipidemia, as well as CAREY presents to the hospital with abnormal labs. EMIL on CKD3 no obstruction on CT abdomen creatinine initially trending down, but back up to 4.78 today US negative for renal vein thrombus - continue IV fluids - follow BMP - hold nephrotoxic meds - seen by Nephrology- hold aspirin in preparation for possible kidney biopsy Diabetes - will continue home insulin,SSI, diabetic diet sleep apnea - patient reports that she has a CPAP but has not had titration study yet - continue CPAP at bedtime metabolic acidosis likely secondary to EMIL Bicarb up to 21 - monitor BMP hypertensive urgency likely due to missed medications. bp improving BP improving -continue coreg -will increase dose of norvasc chronic anemia likely anemia of chronic dz H/H at baseline right lower extremity swelling b/l LE US negative for DVT Morbid obesity BMI 45.0 weight loss encouraged DVT prophylaxis: Heparin subQ attending - dr. burns patient requires ongoing inpatient hospitalization due to EMIL and further workup Quality Stroke Does the patient have a stroke diagnosis?: No VTE Prior VTE?: No VTE Risk Level:: Medical - moderate - high VTE Device Contraindication: Treatment Not Indicated VTE Drug Contraindication: N/A - Med Ordered
--- NOTE | 2021-12-25 15:42 | PM.PNNEP ---
Subjective Subjective Date of Service: 12/25/21 Interval history: Seen and examined this morning Follow-up for EMIL Still reporting some right-sided flank pain No further chest pain Physical Exam Vital Signs: Vital Signs: Last Vital Signs Temp 96.6 F L 12/25/21 10:55 Pulse 71 12/25/21 10:55 Resp 18 12/25/21 10:55 BP 124/56 L 12/25/21 10:55 Pulse Ox 95 12/25/21 10:55 O2 Del Method 12/25/21 10:55 BMI result Body Mass Index 44.9 Const: Other: Patient lying flat in bed, does not appear in distress General: cooperative, comfortable, no acute distress, alert and awake Nutritional Appearance: overweight Orientation/consciousness: patient oriented x3 HEENT: Head: Yes normocephalic Eyes: General: appearance normal, both eyes and all related structures EOM: EOMs intact bilaterally Neck: Other: Thick neck Neck: Yes supple Resp: Effort & Inspection: normal respiratory effort and able to speak in complete sentences Auscultation: clear to auscultation bilaterally and diminished lung sounds Cardio: Rate: regular rate Rhythm: regular rhythm Heart sounds: S1 normal heart sound present and S2 normal heart sound present GI: Inspection: No distended Palpation (GI): Soft to palpation and Tenderness to palpation present (GI) Auscultation: normal bowel sounds : Other: right General: Yes CVA tenderness Back/Spine/Pelvis: Back: CVA tenderness Skin: General skin exam: no rashes or lesions noted Neuro: Other: grossly nonfocal General: patient oriented x3 and moves all extremities Cognition (Neuro): normal cognition Extrem: Other: Right extremity does appear a bit more swollen than the left although there is no pitting edema General: Yes normal to inspection and Yes no pedal edema Objective Data Labs CBC & Chem 7: 12/24/21 05:06 12/25/21 06:07 Labs: Laboratory Results - last 24 hr 12/24/21 12/24/21 12/24/21 13:46 19:47 21:50 Sodium Potassium Chloride Carbon Dioxide Anion Gap BUN Creatinine Estim Creat Clear Calc Estimated GFR POC Glucose 236 H 383 H* 390 H* Random Glucose Calcium Phosphorus Lactate Dehydrogenase 25-OH Vitamin D Total 12/25/21 12/25/21 12/25/21 06:07 07:22 10:57 Sodium 140 Potassium 4.0 Chloride 109 H Carbon Dioxide 21 L Anion Gap 14 BUN 50 H Creatinine 4.78 H* Estim Creat Clear Calc 14.9 Estimated GFR 9 POC Glucose 141 H 249 H Random Glucose 143 H Calcium 7.8 L Phosphorus 5.1 H Lactate Dehydrogenase 236 H 25-OH Vitamin D Total 13.6 Procedures Date of Service Date of Service: 12/25/21 Assessment & Plan Assessment and plan (1) Acute renal failure (ARF): Status: Acute Assessment and Plan: EMIL in a pt with DM II and underlying CKD; I do not know her baseline. EMIL occurring with hypertension and right flank pain and chest pain. DDX does include possible RA occlusion or infarction though LDH not markedly elevated. UA with proteinuria, hematuria. Need to consider superimposed process such as acute GN (IGA or RPGN) or vascular issues such as ISRA. May need renal biopsy. Doppler Isra pending (2) Metabolic acidosis: Status: Acute Assessment and Plan: Due to EMIL; improved (3) Hypertensive urgency: Status: Acute Assessment and Plan: BP controlled now; possible renovascular hypertension Plan 56-year-old female with past medical history of diabetes, hypertension, hyperlipidemia, as well as CAREY presents to the hospital with abnormal labs. Has seen Dr. Campa in past at [facility]; I do not know her baseline renal function. Anemic. EMIL on CKD3 no obstruction on CT abdomen creatinine initially trending down, but back up to 4.78 today US negative for renal vein thrombus; ddx includes renal infarct or occluded ra given flank pain Acute GN not yet ruled out. Does not appear hypovolemic. Anemia: rule out myeloma - Stop Ivf - hold aspirin in preparation for possible kidney biopsy -RA doppler to rule out occluded RA Diabetes - will continue home insulin,SSI, diabetic diet sleep apnea - patient reports that she has a CPAP but has not had titration study yet - continue CPAP at bedtime hypertensive urgency-possible RVH IMproved and controlled now chronic anemia likely anemia of chronic dz H/H at baseline Time Spent With Patient Time: Total time spent is greater than 50% in coordination of care (as documented) at patient's floor/unit and/or counseling patient: Progress Note: Quality Stroke Does the patient have a stroke diagnosis?: No
[2021-12-25 17:01] LABS: Glucose, Whole Blood 233 mg/dL (60-115)
[2021-12-25 19:44] LABS: Glucose, Whole Blood 226 mg/dL (60-115)
[2021-12-26 03:21] VITALS: BP 125/60; PULSE 67; RESP 17; TEMP 36; O2SAT 100
[2021-12-26] MEDS: Omeprazole 20 MG CAPSULE.DR PO (06:11)
[2021-12-26] MEDS: Morphine Sulfate 2 MG/ML CARTRIDGE IVPUSH (06:16)
[2021-12-26] MEDS: Heparin Sodium,Porcine 5,000 UNIT/ML VIAL 5000 UNIT SUBCUT ×3 (06:17→21:39)
[2021-12-26 07:13] LABS: Hematocrit 22.9 % (37.0-47.0); Hemoglobin 7.4 g/dl (12.0-16.0); Mean Corpuscular HGB Conc 32.3 g/dl (31.0-35.0); Mean Corpuscular Hemoglobin 27.8 pg (27.0-33.0); Mean Corpuscular Volume 86.1 fL (80.0-98.0); Mean Platelet Volume 10.3 fL (9.4-12.3); Platelet Count 257 X10*3/uL (160-400); Red Blood Count 2.66 X10*6/uL (4.20-5.50); Red Cell Distribution Width 14.6 % (11.0-16.0); White Blood Count 7.6 X10*3/uL (4.8-10.8)
[2021-12-26 07:56] LABS: Anion Gap 15 (12-20); Blood Urea Nitrogen 48 mg/dL (9-16); Calcium 7.7 mg/dL (8.4-10.2); Carbon Dioxide 20 mmol/L (22-29); Chloride 107 mmol/L (96-108); Creatinine Clr Calc Pharmacy 14.6; Estimated Glomerular Filt Rate 9; Glucose Random 123 mg/dL (60-115); Potassium 3.9 mmol/L (3.3-5.1); Sodium 138 mmol/L (135-145)
[2021-12-26 08:00] VITALS: BP 147/73; PULSE 75; RESP 18; TEMP 36.2; O2SAT 95
[2021-12-26 08:17] LABS: Glucose, Whole Blood 105 mg/dL (60-115)
[2021-12-26] MEDS: Insulin Glargine,Hum.rec.anlog 100 UNIT/ML 10 ML VIAL 55 UNIT SUBCUT ×2 (08:47→21:39)
[2021-12-26] MEDS: oxyCODONE HCl Immed Release 5 MG TABLET PO ×3 (08:47→21:46)
[2021-12-26] MEDS: levETIRAcetam 500 MG TABLET PO ×2 (08:48→21:41)
[2021-12-26] MEDS: amLODIPine Besylate 5 MG TABLET PO (08:48)
[2021-12-26] MEDS: Gabapentin 100 MG CAPSULE PO ×3 (08:48→21:40)
[2021-12-26] MEDS: Famotidine 20 MG TABLET PO (08:52)
[2021-12-26] MEDS: Atorvastatin Calcium 80 MG TABLET PO (08:52)
[2021-12-26] MEDS: Cyanocobalamin (Vitamin B-12) 1,000 MCG TABLET 1000 MCG PO (08:52)
[2021-12-26] MEDS: Topiramate 25 MG TABLET PO (08:52)
[2021-12-26] MEDS: Cholecalciferol (Vitamin D3) 25 MCG TABLET 50 MCG PO (08:53)
[2021-12-26] MEDS: carvediloL 12.5 MG TABLET PO ×2 (09:31→21:41)
[2021-12-26] MEDS: Lactulose 20 GM/30 ML SOLUTION 10 GM PO (09:34)
[2021-12-26 12:00] VITALS: BP 122/59; PULSE 71; RESP 14; TEMP 36.4; O2SAT 95
[2021-12-26 12:11] LABS: Glucose, Whole Blood 128 mg/dL (60-115)
--- NOTE | 2021-12-26 14:59 | P.PNIM_ITS ---
Subjective Subjective Date of Service: 12/26/21 Interval History: seen and examined this morning follow up for EMIL, renal function trending back up still with right sided pain no BM but doesn't feel constipated. no nausea or vomiting, tolerating diet. no fevers, chills, or dysuria Review of Systems Review of Systems: Yes all other systems are reviewed and are negative Constitutional Constitutional: Denies chills and Denies fever(s) ENT Ears, Nose, Mouth, and Throat: Denies dizziness Cardiovascular Cardiovascular: Denies chest pain, Denies palpitations and Denies dyspnea Respiratory Respiratory: Denies cough and Denies dyspnea Gastrointestinal Gastrointestinal: Reports abdominal pain, Denies diarrhea, Denies nausea and Denies vomiting Neurologic Neurologic: Denies dizziness Endocrine Endocrine: Denies palpitations Physical Exam Vital Signs: Vital Signs: Last Vital Signs Temp 97.6 F 12/26/21 12:00 Pulse 71 12/26/21 12:00 Resp 14 12/26/21 12:00 BP 122/59 L 12/26/21 12:00 Pulse Ox 95 12/26/21 12:00 O2 Del Method 12/26/21 12:00 BMI result Body Mass Index 44.9 Const: General: cooperative, comfortable, alert and awake Nutritional Appearance: overweight Orientation/consciousness: patient oriented x3 Resp: Effort & Inspection: normal respiratory effort and able to speak in complete sentences Auscultation: clear to auscultation bilaterally Cardio: Rate: regular rate Heart sounds: S1 normal heart sound present and S2 normal heart sound present GI: Inspection: No distended Palpation (GI): Soft to palpation : Other: right General: Yes CVA tenderness Back/Spine/Pelvis: Back: CVA tenderness Neuro: Other: grossly nonfocal General: patient oriented x3 Extrem: General: Yes no pedal edema Objective Data Active Medications Acetaminophen (Acetaminophen 325 Mg Tablet) 650 mg PO Q6H PRN PRN Reason: Pain, Mild (Pain Scale 1-3) Last Admin: 12/24/21 13:51 Dose: 650 mg Documented By: KUSHAL Amlodipine Besylate (Amlodipine Besylate 5 Mg Tablet) 5 mg PO DAILY [facility]; Protocol Last Admin: 12/26/21 08:48 Dose: 5 mg Documented By: ANNIE Atorvastatin Calcium (Atorvastatin Calcium 80 Mg Tablet) 80 mg PO DAILY [facility] Last Admin: 12/26/21 08:52 Dose: 80 mg Documented By: ANNIE Carvedilol (Carvedilol 12.5 Mg Tablet) 12.5 mg PO BID [facility]; Protocol Last Admin: 12/26/21 09:31 Dose: 12.5 mg Documented By: ANNIE Cyanocobalamin (Cyanocobalamin (Vitamin B-12) 1,000 Mcg Tablet) 1,000 mcg PO DAILY [facility] Last Admin: 12/26/21 08:52 Dose: 1,000 mcg Documented By: ANNIE Dextrose (Dextrose 50 % 25 Gm/50 Ml Syringe) 25 gm IVPUSH Q15M PRN; Protocol PRN Reason: per Hypoglycemia Standing Ord. Docusate Sodium (Docusate Sodium 100 Mg Capsule) 100 mg PO DAILY PRN PRN Reason: Constipation Last Admin: 12/25/21 10:16 Dose: 100 mg Documented By: JARETH Famotidine (Famotidine 20 Mg Tablet) 20 mg PO DAILY [facility] Last Admin: 12/26/21 08:52 Dose: 20 mg Documented By: ANNIE Gabapentin (Gabapentin 100 Mg Capsule) 100 mg PO TID [facility] Last Admin: 12/26/21 08:48 Dose: 100 mg Documented By: ANNIE Glucose (Glucose Gel 15 Gm Gel..Gram.) 15 gm PO Q15M PRN; Protocol PRN Reason: per Hypoglycemia Standing Ord. Heparin Sodium (Porcine) (Heparin Sodium,Porcine 5,000 Unit/Ml Vial) 5,000 unit SUBCUT Q8H [facility] Last Admin: 12/26/21 06:17 Dose: 5,000 unit Documented By: JOSE Insulin Glargine (Insulin Glargine,Hum.Rec.Anlog 100 Unit/Ml 10 Ml Vial) 55 unit SUBCUT BID [facility] Last Admin: 12/26/21 08:47 Dose: 55 unit Documented By: ANNIE Insulin Human Lispro (Insulin Lispro 100 Unit/Ml 3 Ml Vial) 0 unit SUBCUT QIDACHS [facility]; Protocol Last Admin: 12/26/21 12:28 Dose: Not Given Documented By: ANNIE Non-Admin Reason: No Insulin Coverage Lactulose (Lactulose 20 Gm/30 Ml Solution) 10 gm PO DAILY PRN PRN Reason: Constipation Last Admin: 12/26/21 09:34 Dose: 10 gm Documented By: ANNIE Levetiracetam (Levetiracetam 500 Mg Tablet) 500 mg PO BID [facility] Last Admin: 12/26/21 08:48 Dose: 500 mg Documented By: ANNIE Loperamide HCl (Loperamide Hcl 2 Mg Capsule) 2 mg PO Q6H PRN PRN Reason: Diarrhea Morphine Sulfate (Morphine Sulfate 2 Mg/Ml Cartridge) 2 mg IVPUSH Q4H PRN; Protocol PRN Reason: Pain, Severe (Pain Scale 7-10) Last Admin: 12/26/21 06:16 Dose: 2 mg Documented By: JOSE Omeprazole (Omeprazole 20 Mg Capsule.Dr) 20 mg PO DAILY@0630 [facility] Last Admin: 12/26/21 06:11 Dose: 20 mg Documented By: JOSE Ondansetron HCl (Ondansetron Hcl 4 Mg/2 Ml Vial) 4 mg IVPUSH Q8H PRN PRN Reason: Nausea and Vomiting Last Admin: 12/25/21 09:47 Dose: 4 mg Documented By: JARETH Oxycodone HCl (Oxycodone Hcl Immed Release 5 Mg Tablet) 5 mg PO Q6H PRN PRN Reason: Pain, Moderate (Pain Scale 4-6 Last Admin: 12/26/21 08:47 Dose: 5 mg Documented By: ANNIE Sodium Chloride (0.9 % Sodium Chloride Flush 3 Ml Syringe) 3 ml IVFLUSH [facility] Last Admin: 12/26/21 08:55 Dose: Not Given Documented By: ANNIE Non-Admin Reason: IV Running Topiramate (Topiramate 25 Mg Tablet) 25 mg PO DAILY [facility] Last Admin: 12/26/21 08:52 Dose: 25 mg Documented By: ANNIE Vitamin D (Cholecalciferol (Vitamin D3) 25 Mcg Tablet) 50 mcg PO DAILY [facility] Last Admin: 12/26/21 08:53 Dose: 50 mcg Documented By: ANNIE Labs CBC & Chem 7: 12/26/21 05:48 12/26/21 05:48 Labs: Laboratory Results - last 24 hr 12/25/21 12/25/21 12/26/21 16:53 19:37 05:48 MCV 86.1 MCH 27.8 MCHC 32.3 RDW 14.6 Plt Count 257 MPV 10.3 Absolute Nucleated RBC 0.000 Nucleated RBC % (auto) 0.0 Anion Gap Estim Creat Clear Calc Estimated GFR POC Glucose 233 H 226 H Random Glucose Calcium 12/26/21 12/26/21 12/26/21 05:48 08:11 11:45 MCV MCH MCHC RDW Plt Count MPV Absolute Nucleated RBC Nucleated RBC % (auto) Anion Gap 15 Estim Creat Clear Calc 14.6 Estimated GFR 9 POC Glucose 105 128 H Random Glucose 123 H Calcium 7.7 L Assessment and Plan (1) Acute renal failure (ARF): Status: Acute (2) Hypertensive urgency: Status: Acute Plan 56-year-old female with past medical history of diabetes, hypertension, hyperlipidemia, as well as CAREY presents to the hospital with abnormal labs. EMIL on CKD3 no obstruction on CT abdomen creatinine initially trending down, but now trending back up US negative for renal vein thrombus - d/c IVF per nephro rec - Nephrology following - hold aspirin in preparation for possible kidney biopsy - follow BMP metabolic acidosis likely secondary to EMIL - monitor BMP Normocytic anemia no baseline for comparison likely anemia of chronic dz b12, folate wnl check iron panel immunofixation pending H/H trending down - consider transfusion if drops further hypertensive urgency bp under better control at this time -continue coreg -continue current dose of norvasc Diabetes -continue home insulin,SSI, diabetic diet sleep apnea - patient reports that she has a CPAP but has not had titration study yet - continue CPAP at bedtime right lower extremity swelling b/l LE US negative for DVT Morbid obesity BMI 45.0 weight loss encouraged DVT prophylaxis: Heparin subQ attending - dr. steward patient requires ongoing inpatient hospitalization due to EMIL and further workup Quality Stroke Does the patient have a stroke diagnosis?: No VTE Prior VTE?: No VTE Risk Level:: Medical - moderate - high VTE Device Contraindication: Treatment Not Indicated VTE Drug Contraindication: N/A - Med Ordered
[2021-12-26 15:26] LABS: Iron 64 mcg/dL (30-160); Percent Iron Saturation 40 % (15-50); Total Iron Binding Capacity 162 mcg/dL (228-428); Unsaturated Iron Binding 98 ug/dL
[2021-12-26] MEDS: Acetaminophen 325 MG TABLET 650 MG PO (15:32)
[2021-12-26 16:00] VITALS: BP 146/67; PULSE 72; RESP 16; TEMP 36.8; O2SAT 96
[2021-12-26 16:45] LABS: Glucose, Whole Blood 112 mg/dL (60-115)
[2021-12-26 19:56] VITALS: BP 152/72; PULSE 79; RESP 17; TEMP 36.4; O2SAT 98
[2021-12-26 20:15] LABS: Glucose, Whole Blood 118 mg/dL (60-115)
[2021-12-26 23:41] VITALS: BP 149/67; PULSE 75; RESP 17; TEMP 36.1; O2SAT 98
[2021-12-27] VITALS (11 sets, daily range): BP systolic 106–148; BP diastolic 56–69; PULSE 66–78; RESP 15–20; TEMP 36–37.3; O2SAT 95–98
[2021-12-27] MEDS: 0.9 % Sodium Chloride Flush 3 ML SYRINGE IVFLUSH ×3 (00:02→21:22)
[2021-12-27] MEDS: diphenhydrAMINE HCL 25 MG TABLET PO ×3 (03:11→21:32)
[2021-12-27] MEDS: Heparin Sodium,Porcine 5,000 UNIT/ML VIAL 5000 UNIT SUBCUT (05:41)
[2021-12-27] MEDS: Omeprazole 20 MG CAPSULE.DR PO (05:41)
[2021-12-27] MEDS: oxyCODONE HCl Immed Release 5 MG TABLET PO ×2 (05:44→21:32)
[2021-12-27 06:08] LABS: Anion Gap 14 (12-20); Blood Urea Nitrogen 49 mg/dL (9-16); Calcium 7.6 mg/dL (8.4-10.2); Carbon Dioxide 20 mmol/L (22-29); Chloride 107 mmol/L (96-108); Creatinine Clr Calc Pharmacy 14.4; Estimated Glomerular Filt Rate 9; Glucose Random 66 mg/dL (60-115); Potassium 3.9 mmol/L (3.3-5.1); Sodium 137 mmol/L (135-145)
[2021-12-27 07:22] LABS: Hematocrit 22.1 % (37.0-47.0); Hemoglobin 7.1 g/dl (12.0-16.0); Mean Corpuscular HGB Conc 32.1 g/dl (31.0-35.0); Mean Corpuscular Hemoglobin 27.6 pg (27.0-33.0); Mean Platelet Volume 10.2 fL (9.4-12.3); Platelet Count 256 X10*3/uL (160-400); Red Blood Count 2.57 X10*6/uL (4.20-5.50); Red Cell Distribution Width 14.9 % (11.0-16.0)
[2021-12-27 07:26] LABS: Glucose, Whole Blood 72 mg/dL (60-115)
[2021-12-27] MEDS: levETIRAcetam 500 MG TABLET PO (09:44)
[2021-12-27] MEDS: Gabapentin 100 MG CAPSULE PO ×3 (09:44→21:20)
[2021-12-27] MEDS: amLODIPine Besylate 5 MG TABLET PO (09:44)
[2021-12-27] MEDS: Cholecalciferol (Vitamin D3) 25 MCG TABLET 50 MCG PO (09:44)
[2021-12-27] MEDS: carvediloL 12.5 MG TABLET PO ×2 (09:44→21:20)
[2021-12-27] MEDS: Famotidine 20 MG TABLET PO (09:45)
[2021-12-27] MEDS: Cyanocobalamin (Vitamin B-12) 1,000 MCG TABLET 1000 MCG PO (09:45)
[2021-12-27] MEDS: Topiramate 25 MG TABLET PO (09:45)
[2021-12-27] MEDS: Atorvastatin Calcium 80 MG TABLET PO (09:45)
[2021-12-27] MEDS: Hydrocortisone 1 % Ointment 28.35 GM TUBE 1 APPL TOPICAL (09:49)
[2021-12-27] MEDS: Triamcinolone Acet 0.5 % Oint 15 GM TUBE 1 APPL TOPICAL ×2 (09:49→21:22)
[2021-12-27] MEDS: Insulin Glargine,Hum.rec.anlog 100 UNIT/ML 10 ML VIAL 55 UNIT SUBCUT (10:01)
--- NOTE | 2021-12-27 11:05 | PM.PNNEP ---
Subjective Subjective Date of Service: 12/27/21 Interval history: seen and examined this morning follow up for EMIL still with right sided pain no fever denies dysuria Physical Exam Vital Signs: Vital Signs: Last Vital Signs Temp 98 F 12/27/21 06:59 Pulse 73 12/27/21 06:59 Resp 18 12/27/21 06:59 BP 106/58 L 12/27/21 06:59 Pulse Ox 97 12/27/21 06:59 O2 Del Method 12/27/21 06:59 BMI result Body Mass Index 44.9 Const: General: cooperative, comfortable, alert and awake Nutritional Appearance: overweight Orientation/consciousness: patient oriented x3 Resp: Effort & Inspection: normal respiratory effort Auscultation: clear to auscultation bilaterally Cardio: Rate: regular rate Heart sounds: S1 normal heart sound present and S2 normal heart sound present GI: Inspection: No distended Palpation (GI): Soft to palpation Neuro: Other: grossly nonfocal General: patient oriented x3 Extrem: General: Yes no pedal edema Objective Data Labs CBC & Chem 7: 12/27/21 05:19 12/27/21 05:19 Labs: Laboratory Results - last 24 hr 12/26/21 12/26/21 12/26/21 05:48 11:45 16:32 WBC RBC Hgb Hct MCV MCH MCHC RDW Plt Count MPV Absolute Nucleated RBC Nucleated RBC % (auto) Sodium Potassium Chloride Carbon Dioxide Anion Gap BUN Creatinine Estim Creat Clear Calc Estimated GFR POC Glucose 128 H 112 Random Glucose Calcium Iron 64 TIBC 162 L % Saturation 40 Unsat Iron Binding 98 Blood Type Antibody Screen Crossmatch 12/26/21 12/27/21 12/27/21 20:08 05:19 05:19 WBC 8.0 RBC 2.57 L Hgb 7.1 L Hct 22.1 L MCV 86.0 MCH 27.6 MCHC 32.1 RDW 14.9 Plt Count 256 MPV 10.2 Absolute Nucleated RBC 0.000 Nucleated RBC % (auto) 0.0 Sodium 137 Potassium 3.9 Chloride 107 Carbon Dioxide 20 L Anion Gap 14 BUN 49 H Creatinine 4.96 H* Estim Creat Clear Calc 14.4 Estimated GFR 9 POC Glucose 118 H Random Glucose 66 Calcium 7.6 L Iron TIBC % Saturation Unsat Iron Binding Blood Type Antibody Screen Crossmatch 12/27/21 12/27/21 06:59 08:08 WBC RBC Hgb Hct MCV MCH MCHC RDW Plt Count MPV Absolute Nucleated RBC Nucleated RBC % (auto) Sodium Potassium Chloride Carbon Dioxide Anion Gap BUN Creatinine Estim Creat Clear Calc Estimated GFR POC Glucose 72 Random Glucose Calcium Iron TIBC % Saturation Unsat Iron Binding Blood Type A Positive Antibody Screen NEGATIVE Crossmatch See Detail Procedures Date of Service Date of Service: 12/27/21 Assessment & Plan Assessment and plan (1) Acute renal failure (ARF): Status: Acute Assessment and Plan: 1) Acute renal failure (ARF): ?Status:?Acute ?Assessment and Plan: EMIL in a pt with DM II and underlying CKD; I do not know her baseline. EMIL occurring with hypertension and right flank pain and chest pain. DDX does include possible renal infarct but LDH not markedly elevated and doppler shows no significant narrowing of arteries and patent arteries and vein.? UA with proteinuria, hematuria. Need to consider acute GN (IGA or RPGN). Needs renal biopsy. Plan (2) Hypertensive urgency: Status: Acute Assessment and Plan: ( (3) Hypertensive urgency: ?Status:?Acute ?Assessment and Plan: BP controlled now; possible renovascular hypertension related to acute GN/vasculitis (3) Metabolic acidosis: Status: Acute Assessment and Plan: 2) Metabolic acidosis: ?Status:?Acute ?Assessment and Plan: Due to EMIL; improved (4) Flank pain: Status: Acute Assessment and Plan: Cause not clear; no stones, vascular studies ok; possibly related to acute GN (5) Anemia: Status: Acute Assessment and Plan: If not done: spep and immunofixation Iron studies, b12 transfuse prior to biopsy Plan REnal biopsy tomorrow Hold sc heparin Transfuse 1 unite prior to biopsy DDAVP 0.3 mcg/kg to beinfused over 30 minutes at 1 hour prior to biopsy tomorrow Time Spent With Patient Time: Total time spent is greater than 50% in coordination of care (as documented) at patient's floor/unit and/or counseling patient: Progress Note: Quality Stroke Does the patient have a stroke diagnosis?: No
--- NOTE | 2021-12-27 11:24 | P.PNIM_ITS ---
Subjective Subjective Date of Service: 12/27/21 Interval History: seen and examined this morning follow up for acute renal failure still with some right sided pain, no BM for few days; no fever, chills, nausea or vomiting Review of Systems Review of Systems: Yes all other systems are reviewed and are negative Constitutional Constitutional: Denies chills and Denies fever(s) Cardiovascular Cardiovascular: Denies chest pain, Denies palpitations and Denies dyspnea Respiratory Respiratory: Denies cough and Denies dyspnea Gastrointestinal Gastrointestinal: Reports abdominal pain, Denies diarrhea, Denies nausea and Denies vomiting Endocrine Endocrine: Denies palpitations Physical Exam Vital Signs: Vital Signs: Last Vital Signs Temp 98 F 12/27/21 06:59 Pulse 73 12/27/21 06:59 Resp 18 12/27/21 06:59 BP 106/58 L 12/27/21 06:59 Pulse Ox 97 12/27/21 06:59 O2 Del Method 12/27/21 06:59 BMI result Body Mass Index 44.9 Const: General: cooperative, comfortable, alert and awake Nutritional Appearance: overweight Orientation/consciousness: patient oriented x3 Resp: Effort & Inspection: normal respiratory effort and able to speak in complete sentences Auscultation: clear to auscultation bilaterally Cardio: Rate: regular rate Heart sounds: S1 normal heart sound present and S2 normal heart sound present GI: Inspection: No distended Palpation (GI): Soft to palpation Neuro: Other: grossly nonfocal General: patient oriented x3 Extrem: General: Yes no pedal edema Objective Data Active Medications Acetaminophen (Acetaminophen 325 Mg Tablet) 650 mg PO Q6H PRN PRN Reason: Pain, Mild (Pain Scale 1-3) Last Admin: 12/26/21 15:32 Dose: 650 mg Documented By: ANNIE Amlodipine Besylate (Amlodipine Besylate 5 Mg Tablet) 5 mg PO DAILY [facility]; Protocol Last Admin: 12/27/21 09:44 Dose: 5 mg Documented By: ANNIE Atorvastatin Calcium (Atorvastatin Calcium 80 Mg Tablet) 80 mg PO DAILY [facility] Last Admin: 12/27/21 09:45 Dose: 80 mg Documented By: ANNIE Carvedilol (Carvedilol 12.5 Mg Tablet) 12.5 mg PO BID [facility]; Protocol Last Admin: 12/27/21 09:44 Dose: 12.5 mg Documented By: ANNIE Cyanocobalamin (Cyanocobalamin (Vitamin B-12) 1,000 Mcg Tablet) 1,000 mcg PO DAILY [facility] Last Admin: 12/27/21 09:45 Dose: 1,000 mcg Documented By: ANNIE Dextrose (Dextrose 50 % 25 Gm/50 Ml Syringe) 25 gm IVPUSH Q15M PRN; Protocol PRN Reason: per Hypoglycemia Standing Ord. Diphenhydramine HCl (Diphenhydramine Hcl 25 Mg Tablet) 25 mg PO Q6H PRN PRN Reason: itching Last Admin: 12/27/21 09:44 Dose: 25 mg Documented By: ANNIE Docusate Sodium (Docusate Sodium 100 Mg Capsule) 100 mg PO DAILY PRN PRN Reason: Constipation Last Admin: 12/25/21 10:16 Dose: 100 mg Documented By: JARETH Famotidine (Famotidine 20 Mg Tablet) 20 mg PO DAILY [facility] Last Admin: 12/27/21 09:45 Dose: 20 mg Documented By: ANNIE Gabapentin (Gabapentin 100 Mg Capsule) 100 mg PO TID [facility] Last Admin: 12/27/21 09:44 Dose: 100 mg Documented By: ANNIE Glucose (Glucose Gel 15 Gm Gel..Gram.) 15 gm PO Q15M PRN; Protocol PRN Reason: per Hypoglycemia Standing Ord. Heparin Sodium (Porcine) (Heparin Sodium,Porcine 5,000 Unit/Ml Vial) 5,000 unit SUBCUT Q8H [facility] Last Admin: 12/27/21 05:41 Dose: 5,000 unit Documented By: JOSE Hydrocortisone (Hydrocortisone 1 % Ointment 28.35 Gm Tube) 1 appl TOPICAL BID [facility] Last Admin: 12/27/21 09:49 Dose: 1 appl Documented By: ANNIE Insulin Glargine (Insulin Glargine,Hum.Rec.Anlog 100 Unit/Ml 10 Ml Vial) 40 unit SUBCUT BID [facility] Insulin Human Lispro (Insulin Lispro 100 Unit/Ml 3 Ml Vial) 0 unit SUBCUT QIDACHS [facility]; Protocol Last Admin: 12/27/21 08:05 Dose: Not Given Documented By: ANNIE Non-Admin Reason: No Insulin Coverage Lactulose (Lactulose 20 Gm/30 Ml Solution) 10 gm PO DAILY PRN PRN Reason: Constipation Last Admin: 12/26/21 09:34 Dose: 10 gm Documented By: ANNIE Levetiracetam (Levetiracetam 500 Mg Tablet) 500 mg PO BID [facility] Last Admin: 12/27/21 09:44 Dose: 500 mg Documented By: ANNIE Loperamide HCl (Loperamide Hcl 2 Mg Capsule) 2 mg PO Q6H PRN PRN Reason: Diarrhea Morphine Sulfate (Morphine Sulfate 2 Mg/Ml Cartridge) 2 mg IVPUSH Q4H PRN; Protocol PRN Reason: Pain, Severe (Pain Scale 7-10) Last Admin: 12/26/21 06:16 Dose: 2 mg Documented By: JOSE Non-Formulary Medication (Calcipotriene) 1 applic TOPICAL BID [facility] Non-Formulary Medication (Clindamycin Phosphate) 1 applic TOPICAL BID [facility] Omeprazole (Omeprazole 20 Mg Capsule.Dr) 20 mg PO DAILY@0630 [facility] Last Admin: 12/27/21 05:41 Dose: 20 mg Documented By: JOSE Ondansetron HCl (Ondansetron Hcl 4 Mg/2 Ml Vial) 4 mg IVPUSH Q8H PRN PRN Reason: Nausea and Vomiting Last Admin: 12/25/21 09:47 Dose: 4 mg Documented By: JARETH Oxycodone HCl (Oxycodone Hcl Immed Release 5 Mg Tablet) 5 mg PO Q6H PRN PRN Reason: Pain, Moderate (Pain Scale 4-6 Last Admin: 12/27/21 05:44 Dose: 5 mg Documented By: JOSE Sodium Chloride (0.9 % Sodium Chloride Flush 3 Ml Syringe) 3 ml IVFLUSH QSHIFT [facility] Last Admin: 12/27/21 09:45 Dose: 3 ml Documented By: ANNIE Topiramate (Topiramate 25 Mg Tablet) 25 mg PO DAILY [facility] Last Admin: 12/27/21 09:45 Dose: 25 mg Documented By: ANNIE Triamcinolone Acetonide (Triamcinolone Acet 0.5 % Oint 15 Gm Tube) 1 appl TOPICAL BID [facility] Last Admin: 12/27/21 09:49 Dose: 1 appl Documented By: ANNIE Vitamin D (Cholecalciferol (Vitamin D3) 25 Mcg Tablet) 50 mcg PO DAILY [facility] Last Admin: 12/27/21 09:44 Dose: 50 mcg Documented By: ANNIE Labs CBC & Chem 7: 12/27/21 05:19 12/27/21 05:19 Labs: Laboratory Results - last 24 hr 12/26/21 12/26/21 12/26/21 05:48 11:45 16:32 MCV MCH MCHC RDW Plt Count MPV Absolute Nucleated RBC Nucleated RBC % (auto) Anion Gap Estim Creat Clear Calc Estimated GFR POC Glucose 128 H 112 Random Glucose Calcium Iron 64 TIBC 162 L % Saturation 40 Unsat Iron Binding 98 Blood Type Antibody Screen Crossmatch 12/26/21 12/27/21 12/27/21 20:08 05:19 05:19 MCV 86.0 MCH 27.6 MCHC 32.1 RDW 14.9 Plt Count 256 MPV 10.2 Absolute Nucleated RBC 0.000 Nucleated RBC % (auto) 0.0 Anion Gap 14 Estim Creat Clear Calc 14.4 Estimated GFR 9 POC Glucose 118 H Random Glucose 66 Calcium 7.6 L Iron TIBC % Saturation Unsat Iron Binding Blood Type Antibody Screen Crossmatch 12/27/21 12/27/21 06:59 08:08 MCV MCH MCHC RDW Plt Count MPV Absolute Nucleated RBC Nucleated RBC % (auto) Anion Gap Estim Creat Clear Calc Estimated GFR POC Glucose 72 Random Glucose Calcium Iron TIBC % Saturation Unsat Iron Binding Blood Type A Positive Antibody Screen NEGATIVE Crossmatch See Detail Assessment and Plan (1) Acute renal failure (ARF): Status: Acute (2) Anemia: Status: Acute (3) Hypertensive urgency: Status: Acute Plan 56-year-old female with past medical history of diabetes, hypertension, hyperlipidemia, as well as CAREY presents to the hospital with abnormal labs. EMIL on CKD3 unclear baseline creatinine no obstruction on CT abdomen creatinine initially trending down, but now continue to trend up US negative for renal vein/renal artery thrombus work up in progress - plan for kidney biopsy in the morning, NPO at midnight, ASA d/c; plan for DDAVP 0.3 mcg/kg to be infused over 30 minutes 1 hour prior to biopsy - d/c IVF per nephro rec - Nephrology following - follow BMP - renally dose medications metabolic acidosis bicarb stable at 20 likely secondary to EMIL - monitor BMP Chronic Normocytic anemia no baseline for comparison pt now stating she has h/o anemia and follows with [facility], has had blood transfusion in the past on one occasion likely in part r/t anemia of chronic dz b12, folate wnl, iron ok immunofixation pending, haptoglobin pending H/H trending down - will transfuse one unit -follow CBC Right flank pain work up in progress CT, US with no clear cause of pain UA not suggestive of infection, pt denies dysuria -will repeat UA and obtain urine culture hypertensive urgency bp under better control at this time, now trending down -continue coreg - rec to hold if SBP <130 per nephro, parameters ordered -continue current dose of norvasc Diabetes -continue SSI, diabetic diet -POCs trending down, will decrease down of Lantus -follow POCs closely and adjust as needed sleep apnea - patient reports that she has a CPAP but has not had titration study yet - continue CPAP at bedtime right lower extremity swelling b/l LE US negative for DVT Morbid obesity BMI 45.0 weight loss encouraged DVT prophylaxis: Heparin subQ d/c for kidney biopsy patient requires ongoing inpatient hospitalization due to EMIL and further workup Quality Stroke Does the patient have a stroke diagnosis?: No VTE Prior VTE?: No VTE Risk Level:: Medical - moderate - high VTE Device Contraindication: Treatment Not Indicated VTE Drug Contraindication: N/A - Med Ordered
[2021-12-27 11:41] LABS: Glucose, Whole Blood 64 mg/dL (60-115)
[2021-12-27 12:27] LABS: Glucose, Whole Blood 83 mg/dL (60-115)
[2021-12-27] MEDS: Lactulose 20 GM/30 ML SOLUTION 10 GM PO (12:38)
[2021-12-27 13:25] LABS: Glucose, Whole Blood 132 mg/dL (60-115)
[2021-12-27 13:56] LABS: Calcium (PTHI) 7.9 mg/dL (8.6-10.4); PTHI 214 pg/mL (16-77)
[2021-12-27 16:33] LABS: Glucose, Whole Blood 119 mg/dL (60-115)
[2021-12-27 18:48] LABS: Appearance Urine Clear; Color Urine Yellow; Glucose Urine UA 100 mg/dL (Negative); Leukocyte Esterase Urine Negative (Negative); Nitrite Urine Negative (Negative); Specific Gravity - Urine <= 1.005 (1.005-1.025); Urine Blood Negative (Negative); Urine Ketones Negative (Negative); Urine Protein 300 (3+) mg/dL (Neg-Trace)
[2021-12-27 18:53] LABS: Bacteria Urine None Seen (None Seen); Hyaline Casts Urine 0-2 /LPF (0-2); RBC Urine 0-2 /HPF (0-2); Squamous Epithelial Cell Urine 0-2 /HPF (0-2); WBC Urine 0-5 /HPF (0-5)
[2021-12-27 19:56] LABS: Glucose, Whole Blood 100 mg/dL (60-115)
[2021-12-28] VITALS (9 sets, daily range): BP systolic 104–159; BP diastolic 50–71; PULSE 74–80; RESP 16–20; TEMP 36–36.6; O2SAT 90–98
[2021-12-28 06:12] LABS: Mean Corpuscular Hemoglobin 27.4 pg (27.0-33.0); Mean Corpuscular Volume 85.6 fL (80.0-98.0); Mean Platelet Volume 9.7 fL (9.4-12.3); Platelet Count 237 X10*3/uL (160-400); Red Blood Count 2.92 X10*6/uL (4.20-5.50); Red Cell Distribution Width 14.6 % (11.0-16.0); White Blood Count 10.6 X10*3/uL (4.8-10.8)
[2021-12-28] MEDS: Omeprazole 20 MG CAPSULE.DR PO (06:25)
[2021-12-28] MEDS: oxyCODONE HCl Immed Release 5 MG TABLET PO ×3 (06:26→21:33)
[2021-12-28 06:36] LABS: Anion Gap 14 (12-20); Blood Urea Nitrogen 50 mg/dL (9-16); Calcium 7.8 mg/dL (8.4-10.2); Carbon Dioxide 20 mmol/L (22-29); Chloride 105 mmol/L (96-108); Creatinine Clr Calc Pharmacy 14.5; Estimated Glomerular Filt Rate 9; Glucose Random 100 mg/dL (60-115); Potassium 4.5 mmol/L (3.3-5.1); Sodium 134 mmol/L (135-145)
[2021-12-28 07:11] LABS: Glucose, Whole Blood 98 mg/dL (60-115)
[2021-12-28] MEDS: Topiramate 25 MG TABLET PO (09:12)
[2021-12-28] MEDS: 0.9 % Sodium Chloride Flush 3 ML SYRINGE IVFLUSH ×3 (09:12→20:52)
[2021-12-28] MEDS: Cyanocobalamin (Vitamin B-12) 1,000 MCG TABLET 1000 MCG PO (09:12)
[2021-12-28] MEDS: levETIRAcetam 500 MG TABLET PO (09:13)
[2021-12-28] MEDS: amLODIPine Besylate 5 MG TABLET PO (09:13)
[2021-12-28] MEDS: Atorvastatin Calcium 80 MG TABLET PO (09:13)
[2021-12-28] MEDS: Gabapentin 100 MG CAPSULE PO ×3 (09:13→20:51)
[2021-12-28] MEDS: Cholecalciferol (Vitamin D3) 25 MCG TABLET 50 MCG PO (09:13)
[2021-12-28] MEDS: Triamcinolone Acet 0.5 % Oint 15 GM TUBE 1 APPL TOPICAL ×2 (09:13→20:53)
--- NOTE | 2021-12-28 10:09 | P.PNIM_ITS ---
Subjective Subjective Date of Service: 12/28/21 Interval History: follow up for acute renal failure still with some right sided pain but mild reported finally having a bowel movement Review of Systems Review of Systems: Yes all other systems are reviewed and are negative Constitutional Constitutional: Denies chills and Denies fever(s) Cardiovascular Cardiovascular: Denies chest pain, Denies palpitations and Denies dyspnea Respiratory Respiratory: Denies cough and Denies dyspnea Gastrointestinal Gastrointestinal: Reports abdominal pain, Denies diarrhea, Denies nausea and Denies vomiting Endocrine Endocrine: Denies palpitations Physical Exam Vital Signs: Vital Signs: Last Vital Signs Temp 97 F 12/28/21 06:55 Pulse 76 12/28/21 06:55 Resp 18 12/28/21 08:26 BP 123/62 12/28/21 06:55 Pulse Ox 95 12/28/21 06:55 O2 Del Method 12/28/21 06:55 BMI result Body Mass Index 44.9 Appearing in no acute distress heart regular rate rhythm, clear S1, S2\ LSCTA positive bowel sounds, abdomen is soft, nontender, obese neuro patient is alert x3, no focal deficits Objective Data Active Medications Acetaminophen (Acetaminophen 325 Mg Tablet) 650 mg PO Q6H PRN PRN Reason: Pain, Mild (Pain Scale 1-3) Last Admin: 12/26/21 15:32 Dose: 650 mg Documented By: ANNIE Amlodipine Besylate (Amlodipine Besylate 5 Mg Tablet) 5 mg PO DAILY [facility]; Protocol Last Admin: 12/28/21 09:13 Dose: 5 mg Documented By: ELIDA Atorvastatin Calcium (Atorvastatin Calcium 80 Mg Tablet) 80 mg PO DAILY [facility] Last Admin: 12/28/21 09:13 Dose: 80 mg Documented By: ELIDA Carvedilol (Carvedilol 12.5 Mg Tablet) 12.5 mg PO BID [facility]; Protocol Last Admin: 12/28/21 09:14 Dose: Not Given Documented By: ELIDA Non-Admin Reason: Decreased Blood Pressure Cyanocobalamin (Cyanocobalamin (Vitamin B-12) 1,000 Mcg Tablet) 1,000 mcg PO DAILY [facility] Last Admin: 12/28/21 09:12 Dose: 1,000 mcg Documented By: ELIDA Dextrose (Dextrose 50 % 25 Gm/50 Ml Syringe) 25 gm IVPUSH Q15M PRN; Protocol PRN Reason: per Hypoglycemia Standing Ord. Diphenhydramine HCl (Diphenhydramine Hcl 25 Mg Tablet) 25 mg PO Q6H PRN PRN Reason: itching Last Admin: 12/27/21 21:32 Dose: 25 mg Documented By: WEI Docusate Sodium (Docusate Sodium 100 Mg Capsule) 100 mg PO DAILY PRN PRN Reason: Constipation Last Admin: 12/25/21 10:16 Dose: 100 mg Documented By: JARETH Famotidine (Famotidine 20 Mg Tablet) 10 mg PO DAILY [facility] Gabapentin (Gabapentin 100 Mg Capsule) 100 mg PO TID [facility] Last Admin: 12/28/21 09:13 Dose: 100 mg Documented By: ELIDA Glucose (Glucose Gel 15 Gm Gel..Gram.) 15 gm PO Q15M PRN; Protocol PRN Reason: per Hypoglycemia Standing Ord. Hydrocortisone (Hydrocortisone 1 % Ointment 28.35 Gm Tube) 1 appl TOPICAL BID [facility] Last Admin: 12/28/21 09:14 Dose: Not Given Documented By: ELIDA Non-Admin Reason: Med Not Available Insulin Human Lispro (Insulin Lispro 100 Unit/Ml 3 Ml Vial) 0 unit SUBCUT QIDACHS [facility]; Protocol Last Admin: 12/28/21 08:04 Dose: Not Given Documented By: ELIDA Non-Admin Reason: No Insulin Coverage Lactulose (Lactulose 20 Gm/30 Ml Solution) 10 gm PO DAILY PRN PRN Reason: Constipation Last Admin: 12/27/21 12:38 Dose: 10 gm Documented By: ANNIE Levetiracetam (Levetiracetam 500 Mg Tablet) 500 mg PO DAILY [facility] Last Admin: 12/28/21 09:13 Dose: 500 mg Documented By: ELIDA Loperamide HCl (Loperamide Hcl 2 Mg Capsule) 2 mg PO Q6H PRN PRN Reason: Diarrhea Morphine Sulfate (Morphine Sulfate 2 Mg/Ml Cartridge) 2 mg IVPUSH Q4H PRN; Protocol PRN Reason: Pain, Severe (Pain Scale 7-10) Last Admin: 12/26/21 06:16 Dose: 2 mg Documented By: JOSE Non-Formulary Medication (Calcipotriene) 1 applic TOPICAL BID [facility] Non-Formulary Medication (Clindamycin Phosphate) 1 applic TOPICAL BID [facility] Omeprazole (Omeprazole 20 Mg Capsule.Dr) 20 mg PO DAILY@0630 [facility] Last Admin: 12/28/21 06:25 Dose: 20 mg Documented By: WEI Ondansetron HCl (Ondansetron Hcl 4 Mg/2 Ml Vial) 4 mg IVPUSH Q8H PRN PRN Reason: Nausea and Vomiting Last Admin: 12/25/21 09:47 Dose: 4 mg Documented By: JARETH Oxycodone HCl (Oxycodone Hcl Immed Release 5 Mg Tablet) 5 mg PO Q6H PRN PRN Reason: Pain, Moderate (Pain Scale 4-6 Last Admin: 12/28/21 06:26 Dose: 5 mg Documented By: WEI Sodium Chloride (0.9 % Sodium Chloride Flush 3 Ml Syringe) 3 ml IVFLUSH QSHIFT [facility] Last Admin: 12/28/21 09:12 Dose: 3 ml Documented By: ELIDA Topiramate (Topiramate 25 Mg Tablet) 25 mg PO DAILY [facility] Last Admin: 12/28/21 09:12 Dose: 25 mg Documented By: ELIDA Triamcinolone Acetonide (Triamcinolone Acet 0.5 % Oint 15 Gm Tube) 1 appl TOPICAL BID [facility] Last Admin: 12/28/21 09:13 Dose: 1 appl Documented By: ELIDA Vitamin D (Cholecalciferol (Vitamin D3) 25 Mcg Tablet) 50 mcg PO DAILY [facility] Last Admin: 12/28/21 09:13 Dose: 50 mcg Documented By: ELIDA Labs CBC & Chem 7: 12/28/21 05:36 12/28/21 05:36 Labs: Laboratory Results - last 24 hr 12/25/21 12/27/21 12/27/21 06:07 08:08 11:32 MCV MCH MCHC RDW Plt Count MPV Absolute Nucleated RBC Nucleated RBC % (auto) Anion Gap Estim Creat Clear Calc Estimated GFR POC Glucose 64 Random Glucose Calcium PTH Intact 214 H Calcium (PTH Intact) 7.9 L Urine Color Urine Appearance Urine pH Ur Specific [place] Urine Protein Urine Glucose (UA) Urine Ketones Urine Blood Urine Nitrite Ur Leukocyte Esterase Urine RBC Urine WBC Ur Squamous Epith Cells Urine Bacteria Hyaline Casts Blood Type A Positive Antibody Screen NEGATIVE Crossmatch See Detail 12/27/21 12/27/21 12/27/21 12:24 13:22 16:19 MCV MCH MCHC RDW Plt Count MPV Absolute Nucleated RBC Nucleated RBC % (auto) Anion Gap Estim Creat Clear Calc Estimated GFR POC Glucose 83 132 H 119 H Random Glucose Calcium PTH Intact Calcium (PTH Intact) Urine Color Urine Appearance Urine pH Ur Specific [place] Urine Protein Urine Glucose (UA) Urine Ketones Urine Blood Urine Nitrite Ur Leukocyte Esterase Urine RBC Urine WBC Ur Squamous Epith Cells Urine Bacteria Hyaline Casts Blood Type Antibody Screen Crossmatch 12/27/21 12/27/21 12/28/21 18:00 19:27 05:36 MCV MCH MCHC RDW Plt Count MPV Absolute Nucleated RBC Nucleated RBC % (auto) Anion Gap 14 Estim Creat Clear Calc 14.5 Estimated GFR 9 POC Glucose 100 Random Glucose 100 Calcium 7.8 L PTH Intact Calcium (PTH Intact) Urine Color Yellow Urine Appearance Clear Urine pH 6.0 Ur Specific [place] <= 1.005 Urine Protein 300 (3+) H Urine Glucose (UA) 100 H Urine Ketones Negative Urine Blood Negative Urine Nitrite Negative Ur Leukocyte Esterase Negative Urine RBC 0-2 Urine WBC 0-5 Ur Squamous Epith Cells 0-2 Urine Bacteria None Seen Hyaline Casts 0-2 Blood Type Antibody Screen Crossmatch 12/28/21 12/28/21 05:36 06:55 MCV 85.6 MCH 27.4 MCHC 32.0 RDW 14.6 Plt Count 237 MPV 9.7 Absolute Nucleated RBC 0.000 Nucleated RBC % (auto) 0.0 Anion Gap Estim Creat Clear Calc Estimated GFR POC Glucose 98 Random Glucose Calcium PTH Intact Calcium (PTH Intact) Urine Color Urine Appearance Urine pH Ur Specific [place] Urine Protein Urine Glucose (UA) Urine Ketones Urine Blood Urine Nitrite Ur Leukocyte Esterase Urine RBC Urine WBC Ur Squamous Epith Cells Urine Bacteria Hyaline Casts Blood Type Antibody Screen Crossmatch Assessment and Plan (1) Acute renal failure (ARF): Status: Acute (2) Anemia: Status: Acute (3) Hypertensive urgency: Status: Acute Plan 56-year-old female with past medical history of diabetes, hypertension, hyperlipidemia, as well as CAREY presents to the hospital with abnormal labs. EMIL on CKD3 unclear baseline creatinine, although patient reports she has a history of renal disease no obstruction on CT abdomen US negative for renal vein/renal artery thrombus Plan for renal biopsy unfortunately canceled today due to Interventional Radiology unable to perform today Will plan for NPO after midnight for biopsy tomorrow plan for DDAVP 0.3 mcg/kg to be infused over 30 minutes 1 hour prior to biopsy Nephrology following Follow BMP metabolic acidosis. bicarb stable at 20 secondary to EMIL monitor BMP Chronic Normocytic anemia no baseline for comparison pt now stating she has h/o anemia and follows with [facility], has had blood transfusion in the past on one occasion likely in part r/t anemia of chronic dz b12, folate wnl, iron ok immunofixation pending, haptoglobin pending H/H trending down, status post 1 unit PRBCs transfused Stable today Follow CBC closely Right flank pain work up in progress CT, US with no clear cause of pain UA not suggestive of infection, pt denies dysuria Repeat UA shows high proteins, no infection Hypertensive urgency bp under better control at this time, now trending down Continue Coreg and Norvasc Diabetes Sliding scale, ADA diet, Lantus sleep apnea CPAP, may bring from home right lower extremity swelling b/l LE US negative for DVT Morbid obesity BMI 45.0 Discussed the importance of weight management as this may be contributing to w orsening of other comorbidities DVT prophylaxis: Heparin subQ d/c for kidney biopsy Attending Dr. Cox Full code patient requires ongoing inpatient hospitalization due to EMIL and further workup including renal biopsy Quality Stroke Does the patient have a stroke diagnosis?: No VTE Prior VTE?: No VTE Risk Level:: Medical - moderate - high VTE Device Contraindication: Treatment Not Indicated VTE Drug Contraindication: N/A - Med Ordered
[2021-12-28 11:28] LABS: Glucose, Whole Blood 139 mg/dL (60-115)
--- NOTE | 2021-12-28 12:04 | MHC.CM.PN ---
PER MD ROUNDS, PT NOT YET MEDICALLY CLEARED, BIOPSY SCHEDULED FOR TOMORROW. DCP HOME WITH NO SERVICES. TO TRANSPORT
--- NOTE | 2021-12-28 12:50 | PM.PNNEP ---
Subjective Subjective Date of Service: 12/28/21 Interval history: Seen and exmiend, events noted Seen by Dr Campa at [facility]--I am trying to get rec So far I found SCr 1.9 back 10/2020 Physical Exam Vital Signs: Vital Signs: Last Vital Signs Temp 98 F 12/28/21 11:19 Pulse 80 12/28/21 11:19 Resp 16 12/28/21 11:19 BP 104/50 L 12/28/21 11:19 Pulse Ox 90 L 12/28/21 11:19 O2 Del Method 12/28/21 11:19 BMI result Body Mass Index 44.9 Const: Other: Patient lying flat in bed, does not appear in distress General: cooperative, comfortable, no acute distress, alert and awake Nutritional Appearance: overweight Orientation/consciousness: patient oriented x3 HEENT: Head: Yes normocephalic Eyes: General: appearance normal, both eyes and all related structures EOM: EOMs intact bilaterally Neck: Other: Thick neck Neck: Yes supple Resp: Effort & Inspection: normal respiratory effort and able to speak in complete sentences Auscultation: clear to auscultation bilaterally and diminished lung sounds Cardio: Rate: regular rate Rhythm: regular rhythm Heart sounds: S1 normal heart sound present and S2 normal heart sound present GI: Inspection: No distended Palpation (GI): Soft to palpation and Tenderness to palpation present (GI) Auscultation: normal bowel sounds : Other: right General: Yes CVA tenderness Back/Spine/Pelvis: Back: CVA tenderness Skin: General skin exam: no rashes or lesions noted Neuro: Other: grossly nonfocal General: patient oriented x3 and moves all extremities Cognition (Neuro): normal cognition Extrem: Other: Right extremity does appear a bit more swollen than the left although there is no pitting edema General: Yes normal to inspection and Yes no pedal edema Objective Data Labs CBC & Chem 7: 12/28/21 05:36 12/28/21 05:36 Labs: Laboratory Results - last 24 hr 12/25/21 12/27/21 12/27/21 06:07 08:08 13:22 WBC RBC Hgb Hct MCV MCH MCHC RDW Plt Count MPV Absolute Nucleated RBC Nucleated RBC % (auto) Sodium Potassium Chloride Carbon Dioxide Anion Gap BUN Creatinine Estim Creat Clear Calc Estimated GFR POC Glucose 132 H Random Glucose Calcium PTH Intact 214 H Calcium (PTH Intact) 7.9 L Urine Color Urine Appearance Urine pH Ur Specific [place] Urine Protein Urine Glucose (UA) Urine Ketones Urine Blood Urine Nitrite Ur Leukocyte Esterase Urine RBC Urine WBC Ur Squamous Epith Cells Urine Bacteria Hyaline Casts Blood Type A Positive Antibody Screen NEGATIVE Crossmatch See Detail 12/27/21 12/27/21 12/27/21 16:19 18:00 19:27 WBC RBC Hgb Hct MCV MCH MCHC RDW Plt Count MPV Absolute Nucleated RBC Nucleated RBC % (auto) Sodium Potassium Chloride Carbon Dioxide Anion Gap BUN Creatinine Estim Creat Clear Calc Estimated GFR POC Glucose 119 H 100 Random Glucose Calcium PTH Intact Calcium (PTH Intact) Urine Color Yellow Urine Appearance Clear Urine pH 6.0 Ur Specific [place] <= 1.005 Urine Protein 300 (3+) H Urine Glucose (UA) 100 H Urine Ketones Negative Urine Blood Negative Urine Nitrite Negative Ur Leukocyte Esterase Negative Urine RBC 0-2 Urine WBC 0-5 Ur Squamous Epith Cells 0-2 Urine Bacteria None Seen Hyaline Casts 0-2 Blood Type Antibody Screen Crossmatch 12/28/21 12/28/21 12/28/21 05:36 05:36 06:55 WBC 10.6 RBC 2.92 L Hgb 8.0 L Hct 25.0 L MCV 85.6 MCH 27.4 MCHC 32.0 RDW 14.6 Plt Count 237 MPV 9.7 Absolute Nucleated RBC 0.000 Nucleated RBC % (auto) 0.0 Sodium 134 L Potassium 4.5 Chloride 105 Carbon Dioxide 20 L Anion Gap 14 BUN 50 H Creatinine 4.92 H* Estim Creat Clear Calc 14.5 Estimated GFR 9 POC Glucose 98 Random Glucose 100 Calcium 7.8 L PTH Intact Calcium (PTH Intact) Urine Color Urine Appearance Urine pH Ur Specific [place] Urine Protein Urine Glucose (UA) Urine Ketones Urine Blood Urine Nitrite Ur Leukocyte Esterase Urine RBC Urine WBC Ur Squamous Epith Cells Urine Bacteria Hyaline Casts Blood Type Antibody Screen Crossmatch 12/28/21 11:21 WBC RBC Hgb Hct MCV MCH MCHC RDW Plt Count MPV Absolute Nucleated RBC Nucleated RBC % (auto) Sodium Potassium Chloride Carbon Dioxide Anion Gap BUN Creatinine Estim Creat Clear Calc Estimated GFR POC Glucose 139 H Random Glucose Calcium PTH Intact Calcium (PTH Intact) Urine Color Urine Appearance Urine pH Ur Specific [place] Urine Protein Urine Glucose (UA) Urine Ketones Urine Blood Urine Nitrite Ur Leukocyte Esterase Urine RBC Urine WBC Ur Squamous Epith Cells Urine Bacteria Hyaline Casts Blood Type Antibody Screen Crossmatch Procedures Date of Service Date of Service: 12/28/21 Assessment & Plan Assessment and plan (1) Acute renal failure (ARF): Status: Acute (2) Hypertensive urgency: Status: Acute (3) Metabolic acidosis: Status: Acute (4) Flank pain: Status: Acute Assessment and Plan: Cause not clear; no stones, vascular studies ok; possibly related to acute GN (5) Anemia: Status: Acute Plan 1. EMIL: rev old rec SCr 1.9 ( 10/2020) and thus EMIL on CKD; suspectmost likely CKD > EMIL and has prog DKD/HTN renal dis but a kidney Bx will help fdefinitively r/o any potential reversible compoent; sero w/u thus far neg/normal 2. CKD: as noted above supspect adv CKD from DM/HYN 3. Abd/flnk pain: ques etiol w/u thus far unrevealig 4. Anemia: Fe sat 40 % so c/w wth predomininatly epo def; need to r/o Myeloma ( sero pending) 5. MBD of CKD: incr PTH, will check Phos 6. HTN: now controlled --ques too wel controlled REC: will start epo ; kidney Bx rtomorrow; get outpt rec from [facility] ( my office is working on this); check Phos; protect non-dominant arm need to check INR beore doing Bx, need to hold SQ hep and give DDAVP prior to Bx ( 0.3 mcg IV prior to Bx) Will follow with team Time Spent With Patient Time: Total time spent is greater than 50% in coordination of care (as documented) at patient's floor/unit and/or counseling patient: Progress Note: Quality Stroke Does the patient have a stroke diagnosis?: No
[2021-12-28 13:31] LABS: Complement C3 138 mg/dL (83-193)
[2021-12-28 14:14] LABS: Prothrombin Time 11.5 SEC (10.0-13.1)
[2021-12-28] MEDS: diphenhydrAMINE HCL 25 MG TABLET PO ×2 (15:36→21:32)
[2021-12-28 16:50] LABS: Glucose, Whole Blood 170 mg/dL (60-115)
[2021-12-28] MEDS: Insulin Lispro 100 UNIT/ML 3 ML VIAL SUBCUT ×2 (16:51→20:51)
[2021-12-28 20:18] LABS: Glucose, Whole Blood 183 mg/dL (60-115)
[2021-12-28] MEDS: carvediloL 12.5 MG TABLET PO (20:51)
[2021-12-29] VITALS (12 sets, daily range): BP systolic 93–131; BP diastolic 46–76; PULSE 66–82; RESP 14–18; TEMP 36.1–36.7; O2SAT 95–100
[2021-12-29] MEDS: Omeprazole 20 MG CAPSULE.DR PO (04:30)
[2021-12-29] MEDS: oxyCODONE HCl Immed Release 5 MG TABLET PO ×2 (04:30→18:18)
[2021-12-29 04:49] LABS: HBS Num1 4.19 mIU/mL (0-7.99); HBc Num1 0.09 S/CO (0.00-0.79); HBsAGNum1 0.18 S/CO (0.00-0.99); Hepatitis B Core Antibody Nonreactive (Nonreactive); Hepatitis B Surface Antigen Negative (Negative); ~HepC Num1 0.08 S/CO (0.00-0.79); ~Hepatitis B Surface Antibody NONREACTIVE (Nonreactive); ~Hepatitis C Antibody Nonreactive (Nonreactive)
[2021-12-29 05:57] LABS: Hematocrit 23.1 % (37.0-47.0); Hemoglobin 7.3 g/dl (12.0-16.0); Mean Corpuscular HGB Conc 31.6 g/dl (31.0-35.0); Mean Corpuscular Hemoglobin 27.3 pg (27.0-33.0); Mean Corpuscular Volume 86.5 fL (80.0-98.0); Mean Platelet Volume 9.6 fL (9.4-12.3); Platelet Count 240 X10*3/uL (160-400); Red Blood Count 2.67 X10*6/uL (4.20-5.50); Red Cell Distribution Width 14.8 % (11.0-16.0); White Blood Count 8.1 X10*3/uL (4.8-10.8)
[2021-12-29 06:16] LABS: Anion Gap 14 (12-20); Blood Urea Nitrogen 56 mg/dL (9-16); Calcium 7.7 mg/dL (8.4-10.2); Carbon Dioxide 22 mmol/L (22-29); Chloride 104 mmol/L (96-108); Creatinine Clr Calc Pharmacy 13.6; Estimated Glomerular Filt Rate 8; Glucose Random 171 mg/dL (60-115); Potassium 4.9 mmol/L (3.3-5.1); Sodium 135 mmol/L (135-145)
[2021-12-29 07:30] LABS: Glucose, Whole Blood 162 mg/dL (60-115)
[2021-12-29] MEDS: Famotidine 20 MG TABLET 10 MG PO (07:35)
[2021-12-29] MEDS: amLODIPine Besylate 5 MG TABLET PO (07:35)
[2021-12-29] MEDS: levETIRAcetam 500 MG TABLET PO (07:35)
[2021-12-29] MEDS: Topiramate 25 MG TABLET PO (07:37)
[2021-12-29] MEDS: Gabapentin 100 MG CAPSULE PO ×3 (07:37→20:52)
--- NOTE | 2021-12-29 07:37 | HE.PHANOTE ---
Spoke with pre-op RN about DDAVP. I let them know it need to run one hour before surgery. They report patient would most likely be in pre-op for an hour therefore they would run it. They will call when patient arrive. Then I received a call from [facility] RN, reported they need the DDAVP for 9 to be hung prior to going to pre-op. RN reported that pre-op called them to hang DDAVP on the floor. Since DDAVP is an immediate use product, and must be hung after pharmacy makes it. I will call [facility] to confirm where patient is and that they are ready for medication prior to mixing the medication. Perlita Ortiz, PharmD
[2021-12-29] MEDS: diphenhydrAMINE HCL 25 MG TABLET PO (07:42)
[2021-12-29] MEDS: Acetaminophen 325 MG TABLET 650 MG PO ×2 (07:42→16:37)
[2021-12-29] MEDS: 0.9 % Sodium Chloride Flush 3 ML SYRINGE IVFLUSH ×2 (07:45→20:53)
[2021-12-29] MEDS: Lactated Ringers 1,000 ML 80 ML IVCONT ×2 (08:44→22:47)
--- NOTE | 2021-12-29 08:51 | P.PNIM_ITS ---
Subjective Subjective Date of Service: 12/29/21 Interval History: follow up for acute renal failure still with some right sided pain but mild reported finally having a bowel movement Review of Systems Review of Systems: Yes all other systems are reviewed and are negative Constitutional Constitutional: Denies chills and Denies fever(s) Cardiovascular Cardiovascular: Denies chest pain, Denies palpitations and Denies dyspnea Respiratory Respiratory: Denies cough and Denies dyspnea Gastrointestinal Gastrointestinal: Reports abdominal pain, Denies diarrhea, Denies nausea and Denies vomiting Endocrine Endocrine: Denies palpitations Physical Exam Vital Signs: Vital Signs: Last Vital Signs Temp 97.0 F 12/29/21 07:23 Pulse 73 12/29/21 07:23 Resp 18 12/29/21 07:23 BP 111/55 L 12/29/21 07:23 Pulse Ox 95 12/29/21 07:23 O2 Del Method 12/29/21 07:23 BMI result Body Mass Index 44.9 Appearing in no acute distress lung sounds are clear to auscultation heart regular rate rhythm, clear S1, S2 positive bowel sounds, abdomen is soft, nontender neuro patient is alert x3, no focal deficits Objective Data Active Medications Acetaminophen (Acetaminophen 325 Mg Tablet) 650 mg PO Q6H PRN PRN Reason: Pain, Mild (Pain Scale 1-3) Last Admin: 12/29/21 07:42 Dose: 650 mg Documented By: GUI Amlodipine Besylate (Amlodipine Besylate 5 Mg Tablet) 5 mg PO DAILY [facility]; Protocol Last Admin: 12/29/21 07:35 Dose: 5 mg Documented By: GUI Atorvastatin Calcium (Atorvastatin Calcium 80 Mg Tablet) 80 mg PO DAILY [facility] Last Admin: 12/29/21 08:00 Dose: Not Given Documented By: GUI Non-Admin Reason: NPO Carvedilol (Carvedilol 12.5 Mg Tablet) 12.5 mg PO BID [facility]; Protocol Last Admin: 12/29/21 08:00 Dose: Not Given Documented By: GUI Non-Admin Reason: Decreased Blood Pressure Cyanocobalamin (Cyanocobalamin (Vitamin B-12) 1,000 Mcg Tablet) 1,000 mcg PO DAILY [facility] Last Admin: 12/29/21 08:00 Dose: Not Given Documented By: GUI Non-Admin Reason: NPO Dextrose (Dextrose 50 % 25 Gm/50 Ml Syringe) 25 gm IVPUSH Q15M PRN; Protocol PRN Reason: per Hypoglycemia Standing Ord. Diphenhydramine HCl (Diphenhydramine Hcl 25 Mg Tablet) 25 mg PO Q6H PRN PRN Reason: itching Last Admin: 12/29/21 07:42 Dose: 25 mg Documented By: GUI Docusate Sodium (Docusate Sodium 100 Mg Capsule) 100 mg PO DAILY PRN PRN Reason: Constipation Last Admin: 12/25/21 10:16 Dose: 100 mg Documented By: JARETH Famotidine (Famotidine 20 Mg Tablet) 10 mg PO DAILY [facility] Last Admin: 12/29/21 07:35 Dose: 10 mg Documented By: GUI Comments: Gabapentin (Gabapentin 100 Mg Capsule) 100 mg PO TID [facility] Last Admin: 12/29/21 07:37 Dose: 100 mg Documented By: GUI Glucose (Glucose Gel 15 Gm Gel..Gram.) 15 gm PO Q15M PRN; Protocol PRN Reason: per Hypoglycemia Standing Ord. Hydrocortisone (Hydrocortisone 1 % Ointment 28.35 Gm Tube) 1 appl TOPICAL BID [facility] Last Admin: 12/28/21 21:00 Dose: Not Given Documented By: BUCKY Non-Admin Reason: Med Not Available Lactated Ringer's (Lr) 1,000 mls @ 80 mls/hr IVCONT .[id number] [facility] Last Admin: 12/29/21 08:44 Dose: 80 mls/hr Documented By: GUI Insulin Human Lispro (Insulin Lispro 100 Unit/Ml 3 Ml Vial) 0 unit SUBCUT QIDACHS [facility]; Protocol Last Admin: 12/29/21 07:43 Dose: Not Given Documented By: GUI Non-Admin Reason: NPO Lactulose (Lactulose 20 Gm/30 Ml Solution) 10 gm PO DAILY PRN PRN Reason: Constipation Last Admin: 12/27/21 12:38 Dose: 10 gm Documented By: ANNIE Levetiracetam (Levetiracetam 500 Mg Tablet) 500 mg PO DAILY [facility] Last Admin: 12/29/21 07:35 Dose: 500 mg Documented By: GUI Loperamide HCl (Loperamide Hcl 2 Mg Capsule) 2 mg PO Q6H PRN PRN Reason: Diarrhea Morphine Sulfate (Morphine Sulfate 2 Mg/Ml Cartridge) 2 mg IVPUSH Q4H PRN; Protocol PRN Reason: Pain, Severe (Pain Scale 7-10) Last Admin: 12/26/21 06:16 Dose: 2 mg Documented By: JOSE Non-Formulary Medication (Calcipotriene) 1 applic TOPICAL BID [facility] Non-Formulary Medication (Clindamycin Phosphate) 1 applic TOPICAL BID [facility] Omeprazole (Omeprazole 20 Mg Capsule.Dr) 20 mg PO DAILY@0630 [facility] Last Admin: 12/29/21 04:30 Dose: 20 mg Documented By: BUCKY Ondansetron HCl (Ondansetron Hcl 4 Mg/2 Ml Vial) 4 mg IVPUSH Q8H PRN PRN Reason: Nausea and Vomiting Last Admin: 12/25/21 09:47 Dose: 4 mg Documented By: JARETH Oxycodone HCl (Oxycodone Hcl Immed Release 5 Mg Tablet) 5 mg PO Q6H PRN PRN Reason: Pain, Moderate (Pain Scale 4-6 Last Admin: 12/29/21 04:30 Dose: 5 mg Documented By: BUCKY Sodium Chloride (0.9 % Sodium Chloride Flush 3 Ml Syringe) 3 ml [facility] Last Admin: 12/29/21 07:45 Dose: 3 ml Documented By: GUI Topiramate (Topiramate 25 Mg Tablet) 25 mg PO DAILY [facility] Last Admin: 12/29/21 07:37 Dose: 25 mg Documented By: GUI Triamcinolone Acetonide (Triamcinolone Acet 0.5 % Oint 15 Gm Tube) 1 appl TOPICAL BID [facility] Last Admin: 12/28/21 20:53 Dose: 1 appl Documented By: BUCKY Vitamin D (Cholecalciferol (Vitamin D3) 25 Mcg Tablet) 50 mcg PO DAILY [facility] Last Admin: 12/29/21 08:00 Dose: Not Given Documented By: GUI Non-Admin Reason: NPO Labs CBC & Chem 7: 12/29/21 05:46 12/29/21 05:46 Labs: Laboratory Results - last 24 hr 12/25/21 12/28/21 12/28/21 06:07 11:21 13:46 MCV MCH MCHC RDW Plt Count MPV Absolute Nucleated RBC Nucleated RBC % (auto) PT 11.5 INR 1.0 Anion Gap Estim Creat Clear Calc Estimated GFR POC Glucose 139 H Random Glucose Calcium Complement C3 138 Complement C4 36 Hep Bs Antigen Hep Bs Antibody Hep B Core Total Ab Hepatitis C Ab (EIA) 12/28/21 12/28/21 12/28/21 13:46 16:42 19:46 MCV MCH MCHC RDW Plt Count MPV Absolute Nucleated RBC Nucleated RBC % (auto) PT INR Anion Gap Estim Creat Clear Calc Estimated GFR POC Glucose 170 H 183 H Random Glucose Calcium Complement C3 Complement C4 Hep Bs Antigen Negative Hep Bs Antibody NONREACTIVE Hep B Core Total Ab Nonreactive Hepatitis C Ab (EIA) Nonreactive 12/29/21 12/29/21 12/29/21 05:46 05:46 07:20 MCV 86.5 MCH 27.3 MCHC 31.6 RDW 14.8 Plt Count 240 MPV 9.6 Absolute Nucleated RBC 0.000 Nucleated RBC % (auto) 0.0 PT INR Anion Gap 14 Estim Creat Clear Calc 13.6 Estimated GFR 8 POC Glucose 162 H Random Glucose 171 H Calcium 7.7 L Complement C3 Complement C4 Hep Bs Antigen Hep Bs Antibody Hep B Core Total Ab Hepatitis C Ab (EIA) Assessment and Plan (1) Acute renal failure (ARF): Status: Acute (2) Anemia: Status: Acute (3) Hypertensive urgency: Status: Acute Plan 56-year-old female with past medical history of diabetes, hypertension, hyperlipidemia, as well as CAREY presents to the hospital with abnormal labs. EMIL on CKD3 unclear baseline creatinine, although patient reports she has a history of renal disease no obstruction on CT abdomen US negative for renal vein/renal artery thrombus plan for DDAVP 0.3 mcg/kg to be infused over 30 minutes 1 hour prior to biopsy Biopsy scheduled for today Nephrology following Follow BMP metabolic acidosis. Resolved bicarb stable at 22 secondary to EMIL monitor BMP Chronic Normocytic anemia no baseline for comparison pt now stating she has h/o anemia and follows with [facility], has had blood transfusion in the past on one occasion likely in part r/t anemia of chronic dz b12, folate wnl, iron ok immunofixation pending, haptoglobin pending H/H trending down, status post 1 unit PRBCs transfused Stable today Follow CBC closely Right flank pain work up in progress CT, US with no clear cause of pain UA not suggestive of infection, pt denies dysuria Repeat UA shows high proteins, no infection Hypertensive urgency bp under better control at this time, now trending down Continue Coreg and Norvasc Diabetes Sliding scale, ADA diet, Lantus sleep apnea CPAP, may bring from home right lower extremity swelling b/l LE US negative for DVT Morbid obesity BMI 45.0 Discussed the importance of weight management as this may be contributing to worsening of other comorbidities DVT prophylaxis: Heparin subQ d/c for kidney biopsy Attending Dr. Cox Full code patient requires ongoing inpatient hospitalization due to EMIL and further workup including renal biopsy Quality Stroke Does the patient have a stroke diagnosis?: No VTE Prior VTE?: No VTE Risk Level:: Medical - moderate - high VTE Device Contraindication: Treatment Not Indicated VTE Drug Contraindication: N/A - Med Ordered
[2021-12-29 09:03] LABS: Myeloperoxidase Antibody <1.0 AI; Proteinase 3 PR3 Antibodies <1.0 AI
[2021-12-29] MEDS: Triamcinolone Acet 0.5 % Oint 15 GM TUBE 1 APPL TOPICAL ×2 (10:40→20:53)
[2021-12-29] MEDS: Hydrocortisone 1 % Ointment 28.35 GM TUBE 1 APPL TOPICAL (10:41)
--- NOTE | 2021-12-29 10:43 | PM.PNNEP ---
Subjective Subjective Date of Service: 12/29/21 Interval history: Seen and examied, events noted [facility] today Outpt rec show SCr 1.5-2.0 range and heavy Uprot and sero w/u neg Physical Exam Vital Signs: Vital Signs: Last Vital Signs Temp 97.0 F 12/29/21 07:23 Pulse 73 12/29/21 07:23 Resp 18 12/29/21 07:23 BP 111/55 L 12/29/21 07:23 Pulse Ox 95 12/29/21 07:23 O2 Del Method 12/29/21 07:23 BMI result Body Mass Index 44.9 Const: Other: Patient lying flat in bed, does not appear in distress General: cooperative, comfortable, no acute distress, alert and awake Nutritional Appearance: overweight Orientation/consciousness: patient oriented x3 HEENT: Head: Yes normocephalic Eyes: General: appearance normal, both eyes and all related structures EOM: EOMs intact bilaterally Neck: Other: Thick neck Neck: Yes supple Resp: Effort & Inspection: normal respiratory effort and able to speak in complete sentences Auscultation: clear to auscultation bilaterally and diminished lung sounds Cardio: Rate: regular rate Rhythm: regular rhythm Heart sounds: S1 normal heart sound present and S2 normal heart sound present GI: Inspection: No distended Palpation (GI): Soft to palpation and Tenderness to palpation present (GI) Auscultation: normal bowel sounds : Other: right General: Yes CVA tenderness Back/Spine/Pelvis: Back: CVA tenderness Skin: General skin exam: no rashes or lesions noted Neuro: Other: grossly nonfocal General: patient oriented x3 and moves all extremities Cognition (Neuro): normal cognition Extrem: Other: Right extremity does appear a bit more swollen than the left although there is no pitting edema General: Yes normal to inspection and Yes no pedal edema Objective Data Labs CBC & Chem 7: 12/29/21 05:46 12/29/21 05:46 Labs: Laboratory Results - last 24 hr 12/25/21 12/25/21 12/28/21 06:07 06:07 11:21 WBC RBC Hgb Hct MCV MCH MCHC RDW Plt Count MPV Absolute Nucleated RBC Nucleated RBC % (auto) PT INR Sodium Potassium Chloride Carbon Dioxide Anion Gap BUN Creatinine Estim Creat Clear Calc Estimated GFR POC Glucose 139 H Random Glucose Calcium Proteinase 3 (PR3) Ab <1.0 Myeloperoxidase Ab <1.0 Complement C3 138 Complement C4 36 Hep Bs Antigen Hep Bs Antibody Hep B Core Total Ab Hepatitis C Ab (EIA) 12/28/21 12/28/21 12/28/21 13:46 13:46 16:42 WBC RBC Hgb Hct MCV MCH MCHC RDW Plt Count MPV Absolute Nucleated RBC Nucleated RBC % (auto) PT 11.5 INR 1.0 Sodium Potassium Chloride Carbon Dioxide Anion Gap BUN Creatinine Estim Creat Clear Calc Estimated GFR POC Glucose 170 H Random Glucose Calcium Proteinase 3 (PR3) Ab Myeloperoxidase Ab Complement C3 Complement C4 Hep Bs Antigen Negative Hep Bs Antibody NONREACTIVE Hep B Core Total Ab Nonreactive Hepatitis C Ab (EIA) Nonreactive 12/28/21 12/29/21 12/29/21 19:46 05:46 05:46 WBC 8.1 RBC 2.67 L Hgb 7.3 L Hct 23.1 L MCV 86.5 MCH 27.3 MCHC 31.6 RDW 14.8 Plt Count 240 MPV 9.6 Absolute Nucleated RBC 0.000 Nucleated RBC % (auto) 0.0 PT INR Sodium 135 Potassium 4.9 Chloride 104 Carbon Dioxide 22 Anion Gap 14 BUN 56 H Creatinine 5.23 H* Estim Creat Clear Calc 13.6 Estimated GFR 8 POC Glucose 183 H Random Glucose 171 H Calcium 7.7 L Proteinase 3 (PR3) Ab Myeloperoxidase Ab Complement C3 Complement C4 Hep Bs Antigen Hep Bs Antibody Hep B Core Total Ab Hepatitis C Ab (EIA) 12/29/21 07:20 WBC RBC Hgb Hct MCV MCH MCHC RDW Plt Count MPV Absolute Nucleated RBC Nucleated RBC % (auto) PT INR Sodium Potassium Chloride Carbon Dioxide Anion Gap BUN Creatinine Estim Creat Clear Calc Estimated GFR POC Glucose 162 H Random Glucose Calcium Proteinase 3 (PR3) Ab Myeloperoxidase Ab Complement C3 Complement C4 Hep Bs Antigen Hep Bs Antibody Hep B Core Total Ab Hepatitis C Ab (EIA) Procedures Date of Service Date of Service: 12/29/21 Assessment & Plan Assessment and plan (1) Acute renal failure (ARF): Status: Acute (2) Hypertensive urgency: Status: Acute (3) Metabolic acidosis: Status: Acute (4) Flank pain: Status: Acute Assessment and Plan: Cause not clear; no stones, vascular studies ok; possibly related to acute GN (5) Anemia: Status: Acute Plan 1. EMIL: rev old rec SCr 1.9 ( 02/2021) and thus EMIL on CKD; suspect most likely CKD > EMIL and has prog DKD/HTN renal dis but a kidney Bx will help definitively r/o any potential reversible component; sero w/u thus far neg/normal 2. CKD: as noted above supspect adv CKD from DM/HYN 3. Abd/flnk pain: ques etiol w/u thus far unrevealig 4. Anemia: Fe sat 40 % so c/w wth predomininatly epo def; need to r/o Myeloma ( sero pending) 5. MBD of CKD: incr PTH, will check Phos 6. HTN: now controlled --ques too wel controlled REC: will start epo ; kidney Bx today;; check Phos; protect non-dominant arm DDAVP ordered to be gioven prior to Bx ( 0.3 mcg IV prior to Bx); may need xfusion if Hb drop s after Bx Will follow with team Time Spent With Patient Time: Total time spent is greater than 50% in coordination of care (as documented) at patient's floor/unit and/or counseling patient: Progress Note: Quality Stroke Does the patient have a stroke diagnosis?: No
[2021-12-29] MEDS: Desmopressin Acetate 20 MCG in 0.9 % Sodium Chloride 50 ML 100 MCG IV (10:48)
[2021-12-29 11:40] LABS: Glucose, Whole Blood 150 mg/dL (60-115)
[2021-12-29 11:47] LABS: IgA 251 mg/dL (47-310); IgG 1143 mg/dL (600-1640); IgM 225 mg/dL (50-300)
--- NOTE | 2021-12-29 12:45 | HO.RADPN ---
RADIOLOGY Narrative Narrative: CT guided left lower pole renal biopsy. 2 18g core biopsies. No complication.
[2021-12-29] MEDS: Lidocaine HCl 1 % MPF 5 ML VIAL SUBCUT (14:05)
[2021-12-29 16:35] LABS: Glucose, Whole Blood 170 mg/dL (60-115)
[2021-12-29] MEDS: Insulin Lispro 100 UNIT/ML 3 ML VIAL SUBCUT ×2 (16:37→20:52)
[2021-12-29 20:24] LABS: Glucose, Whole Blood 261 mg/dL (60-115)
[2021-12-29] MEDS: carvediloL 12.5 MG TABLET PO (20:52)
[2021-12-30] VITALS (9 sets, daily range): BP systolic 124–144; BP diastolic 57–83; PULSE 68–76; RESP 10–18; TEMP 36–37.2; O2SAT 95–97
[2021-12-30] MEDS: oxyCODONE HCl Immed Release 5 MG TABLET PO ×2 (04:25→18:50)
[2021-12-30] MEDS: Omeprazole 20 MG CAPSULE.DR PO (04:25)
[2021-12-30] MEDS: diphenhydrAMINE HCL 25 MG TABLET PO ×2 (04:27→19:51)
[2021-12-30 06:56] LABS: Anion Gap 13 (12-20); Blood Urea Nitrogen 55 mg/dL (9-16); Calcium 7.5 mg/dL (8.4-10.2); Carbon Dioxide 21 mmol/L (22-29); Chloride 101 mmol/L (96-108); Creatinine Clr Calc Pharmacy 15.1; Estimated Glomerular Filt Rate 10; Glucose Random 173 mg/dL (60-115); Sodium 130 mmol/L (135-145)
[2021-12-30 07:20] LABS: Glucose, Whole Blood 158 mg/dL (60-115)
[2021-12-30] MEDS: Insulin Lispro 100 UNIT/ML 3 ML VIAL SUBCUT ×4 (08:17→20:01)
[2021-12-30] MEDS: Topiramate 25 MG TABLET PO (08:18)
[2021-12-30] MEDS: amLODIPine Besylate 5 MG TABLET PO (08:18)
[2021-12-30] MEDS: levETIRAcetam 500 MG TABLET PO (08:18)
[2021-12-30] MEDS: carvediloL 12.5 MG TABLET PO ×2 (08:18→19:51)
[2021-12-30] MEDS: Cyanocobalamin (Vitamin B-12) 1,000 MCG TABLET 1000 MCG PO (08:18)
[2021-12-30] MEDS: Cholecalciferol (Vitamin D3) 25 MCG TABLET 50 MCG PO (08:18)
[2021-12-30] MEDS: Famotidine 20 MG TABLET 10 MG PO (08:19)
[2021-12-30] MEDS: Atorvastatin Calcium 80 MG TABLET PO (08:19)
[2021-12-30] MEDS: Gabapentin 100 MG CAPSULE PO ×3 (08:19→19:52)
[2021-12-30] MEDS: Triamcinolone Acet 0.5 % Oint 15 GM TUBE 1 APPL TOPICAL (08:23)
[2021-12-30] MEDS: 0.9 % Sodium Chloride 1,000 ML 80 ML IVCONT ×2 (08:24→20:01)
[2021-12-30] MEDS: Hydrocortisone 1 % Ointment 28.35 GM TUBE 1 APPL TOPICAL (08:48)
--- NOTE | 2021-12-30 09:38 | P.PNIM_ITS ---
Subjective Subjective Date of Service: 12/30/21 <Micheline Arciniega NP - Last Filed: 12/30/21 13:26> 12/31/21 <Ben Cox MD - Last Filed: 12/31/21 16:06> Interval History: Follow-up acute renal failure, status post renal biopsy Feeling a little shaky and ?weird? today Denies chest pain, shortness breath, nausea vomiting, diarrhea Still having some difficulties with constipation <Micheline Arciniega NP - Last Filed: 12/30/21 13:26> Review of Systems Review of Systems: Yes all other systems are reviewed and are negative <Micheline Arciniega NP - Last Filed: 12/30/21 13:26> Constitutional Constitutional: Denies chills and Denies fever(s) <Micheline Arciniega NP - Last Filed: 12/30/21 13:26> Cardiovascular Cardiovascular: Denies chest pain, Denies palpitations and Denies dyspnea <Micheline Arciniega NP - Last Filed: 12/30/21 13:26> Respiratory Respiratory: Denies cough and Denies dyspnea <Micheline Arciniega NP - Last Filed: 12/30/21 13:26> Gastrointestinal Gastrointestinal: Reports abdominal pain, Denies diarrhea, Denies nausea and Denies vomiting <Micheline Arciniega NP - Last Filed: 12/30/21 13:26> Endocrine Endocrine: Denies palpitations <Micheline Arciniega NP - Last Filed: 12/30/21 13:26> Physical Exam Vital Signs: Vital Signs: Last Vital Signs Temp 97.5 F 12/30/21 07:34 Pulse 72 12/30/21 07:34 Resp 18 12/30/21 07:34 BP 136/65 12/30/21 07:34 Pulse Ox 97 12/30/21 07:34 O2 Del Method 12/30/21 07:34 BMI result Body Mass Index 44.9 <Micheline Arciniega NP - Last Filed: 12/30/21 13:26> Appearing in no acute distress lung sounds are clear to auscultation heart regular rate rhythm, clear S1, S2 positive bowel sounds, abdomen is soft, nontender neuro patient is alert x3, no focal deficits Obese <ALEAH Huizar Last Filed: 12/30/21 13:26> Objective Data Active Medications Acetaminophen (Acetaminophen 325 Mg Tablet) 650 mg PO Q6H PRN PRN Reason: Pain, Mild (Pain Scale 1-3) Last Admin: 12/29/21 16:37 Dose: 650 mg Documented By: GUI Amlodipine Besylate (Amlodipine Besylate 5 Mg Tablet) 5 mg PO DAILY [facility]; Protocol Last Admin: 12/30/21 08:18 Dose: 5 mg Documented By: MIAH Atorvastatin Calcium (Atorvastatin Calcium 80 Mg Tablet) 80 mg PO DAILY [facility] Last Admin: 12/30/21 08:19 Dose: 80 mg Documented By: MIAH Carvedilol (Carvedilol 12.5 Mg Tablet) 12.5 mg PO BID [facility]; Protocol Last Admin: 12/30/21 08:18 Dose: 12.5 mg Documented By: MIAH Cyanocobalamin (Cyanocobalamin (Vitamin B-12) 1,000 Mcg Tablet) 1,000 mcg PO DAILY [facility] Last Admin: 12/30/21 08:18 Dose: 1,000 mcg Documented By: MIAH Dextrose (Dextrose 50 % 25 Gm/50 Ml Syringe) 25 gm IVPUSH Q15M PRN; Protocol PRN Reason: per Hypoglycemia Standing Ord. Diphenhydramine HCl (Diphenhydramine Hcl 25 Mg Tablet) 25 mg PO Q6H PRN PRN Reason: itching Last Admin: 12/30/21 04:27 Dose: 25 mg Documented By: DESIREE Docusate Sodium (Docusate Sodium 100 Mg Capsule) 100 mg PO DAILY PRN PRN Reason: Constipation Last Admin: 12/25/21 10:16 Dose: 100 mg Documented By: JARETH Famotidine (Famotidine 20 Mg Tablet) 10 mg PO DAILY [facility] Last Admin: 12/30/21 08:19 Dose: 10 mg Documented By: MIAH Gabapentin (Gabapentin 100 Mg Capsule) 100 mg PO TID [facility] Last Admin: 12/30/21 08:19 Dose: 100 mg Documented By: MIAH Glucose (Glucose Gel 15 Gm Gel..Gram.) 15 gm PO Q15M PRN; Protocol PRN Reason: per Hypoglycemia Standing Ord. Hydrocortisone (Hydrocortisone 1 % Ointment 28.35 Gm Tube) 1 appl TOPICAL BID [facility] Last Admin: 12/30/21 08:48 Dose: 1 appl Documented By: MIAH Sodium Chloride (Ns) 1,000 mls @ 80 mls/hr IVCONT .[id number] [facility] Last Admin: 12/30/21 08:24 Dose: 80 mls/hr Documented By: MIAH Insulin Human Lispro (Insulin Lispro 100 Unit/Ml 3 Ml Vial) 0 unit SUBCUT QIDACHS [facility]; Protocol Last Admin: 12/30/21 08:17 Dose: 2 unit Documented By: MIAH Lactulose (Lactulose 20 Gm/30 Ml Solution) 10 gm PO DAILY PRN PRN Reason: Constipation Last Admin: 12/27/21 12:38 Dose: 10 gm Documented By: CINDY-KONGSuzie Levetiracetam (Levetiracetam 500 Mg Tablet) 500 mg PO DAILY [facility] Last Admin: 12/30/21 08:18 Dose: 500 mg Documented By: MIAH Loperamide HCl (Loperamide Hcl 2 Mg Capsule) 2 mg PO Q6H PRN PRN Reason: Diarrhea Non-Formulary Medication (Calcipotriene) 1 applic TOPICAL BID [facility] Non-Formulary Medication (Clindamycin Phosphate) 1 applic TOPICAL BID JA Omeprazole (Omeprazole 20 Mg Capsule.Dr) 20 mg PO DAILY@0630 [facility] Last Admin: 12/30/21 04:25 Dose: 20 mg Documented By: DESIREE Ondansetron HCl (Ondansetron Hcl 4 Mg/2 Ml Vial) 4 mg IVPUSH Q8H PRN PRN Reason: Nausea and Vomiting Last Admin: 12/25/21 09:47 Dose: 4 mg Documented By: JARETH Oxycodone HCl (Oxycodone Hcl Immed Release 5 Mg Tablet) 5 mg PO Q6H PRN PRN Reason: Pain, Mild (Pain Scale 1-3) Last Admin: 12/30/21 04:25 Dose: 5 mg Documented By: DESIREE Sodium Chloride (0.9 % Sodium Chloride Flush 3 Ml Syringe) 3 ml IVFLUSH QSHIFT [facility] Last Admin: 12/30/21 08:48 Dose: Not Given Documented By: MIAH Non-Admin Reason: IV Running Topiramate (Topiramate 25 Mg Tablet) 25 mg PO DAILY [facility] Last Admin: 12/30/21 08:18 Dose: 25 mg Documented By: MIAH Triamcinolone Acetonide (Triamcinolone Acet 0.5 % Oint 15 Gm Tube) 1 appl TOPICAL BID [facility] Last Admin: 12/30/21 08:23 Dose: 1 appl Documented By: MIAH Vitamin D (Cholecalciferol (Vitamin D3) 25 Mcg Tablet) 50 mcg PO DAILY [facility] Last Admin: 12/30/21 08:18 Dose: 50 mcg Documented By: MIAH <Micheline Arciniega NP - Last Filed: 12/30/21 13:26> Labs CBC & Chem 7: : 12/30/21 18:32 12/30/21 11:51 <Micheline Arciniega NP - Last Filed: 12/30/21 13:26> Labs: Laboratory Results - last 24 hr 12/25/21 12/29/21 12/29/21 06:07 11:37 16:31 Anion Gap Estim Creat Clear Calc Estimated GFR POC Glucose 150 H 170 H Random Glucose Calcium IgG Total 1143 IgA Total 251 IgM 225 LISBETH Interpretation SEE NOTE 12/29/21 12/30/21 12/30/21 20:18 06:00 07:04 Anion Gap 13 Estim Creat Clear Calc 15.1 Estimated GFR 10 POC Glucose 261 H 158 H Random Glucose 173 H Calcium 7.5 L IgG Total IgA Total IgM LISBETH Interpretation <Micheline Arciniega NP - Last Filed: 12/30/21 13:26> Assessment and Plan (1) Acute renal failure (ARF): Status: Acute <Micheline Arciniega NP - Last Filed: 12/30/21 13:26> (2) Anemia: Status: Acute <Micheline Arciniega NP - Last Filed: 12/30/21 13:26> (3) Hypertensive urgency: Status: Acute <Micheline Arciniega NP - Last Filed: 12/30/21 13:26> Assessment and Plan: 56-year-old female with past medical history of diabetes, hypertension, hyperlipidemia, as well as CAREY presents to the hospital with abnormal labs. Acute on chronic anemia secondary to renal disease Transfuse 1 unit of PRBCs Check CBC post transfusion Hyponatremia Likely related to LR, switched to normal saline will recheck BMP this afternoon EMIL on CKD3. Mild improvement with some IV fluids unclear baseline creatinine, although patient reports she has a history of renal disease no obstruction on CT abdomen US negative for renal vein/renal artery thrombus s/p plan for DDAVP 0.3 mcg/kg to be infused over 30 minutes 1 hour prior to biopsy Biopsy results pending Nephrology following Follow BMP metabolic acidosis. Resolved bicarb stable at 22 secondary to EMIL monitor BMP Chronic Normocytic anemia no baseline for comparison pt now stating she has h/o anemia and follows with [facility], has had blood transfusion in the past on one occasion likely in part r/t anemia of chronic dz b12, folate wnl, iron ok immunofixation pending, haptoglobin pending H/H trending down, status post 1 unit PRBCs transfused Stable today Follow CBC closely Right flank pain work up in progress CT, US with no clear cause of pain UA not suggestive of infection, pt denies dysuria Repeat UA shows high proteins, no infection Hypertensive urgency bp under better control at this time, now trending down Continue Coreg and Norvasc Diabetes Sliding scale, ADA diet, Lantus sleep apnea CPAP, may bring from home right lower extremity swelling b/l LE US negative for DVT Morbid obesity BMI 45.0 Discussed the importance of weight management as this may be contributing to worsening of other comorbidities DVT prophylaxis: Heparin subQ d/c for kidney biopsy Attending Dr. Cox Full code patient requires ongoing inpatient hospitalization due to EMIL and further workup including renal biopsy, pending results <Micheline Arciniega NP - Last Filed: 12/30/21 13:26> Quality Stroke Does the patient have a stroke diagnosis?: No <Micheline Arciniega NP - Last Filed: 12/30/21 13:26> VTE Prior VTE?: No <Micheline Arciniega NP - Last Filed: 12/30/21 13:26> VTE Risk Level:: Medical - moderate - high <Micheline Arciniega NP - Last Filed: 12/30/21 13:26> VTE Device Contraindication: Treatment Not Indicated <ALEAH Huizar Last Filed: 12/30/21 13:26> VTE Drug Contraindication: N/A - Med Ordered <Micheline Arciniega NP - Last Filed: 12/30/21 13:26>
[2021-12-30 11:13] LABS: Glucose, Whole Blood 190 mg/dL (60-115)
--- NOTE | 2021-12-30 11:22 | PM.PNNEP ---
Subjective Subjective Date of Service: 12/30/21 Interval history: Seen and examined, events noted Physical Exam Vital Signs: Vital Signs: Last Vital Signs Temp 98.9 F 12/30/21 11:09 Pulse 76 12/30/21 11:09 Resp 17 12/30/21 11:09 BP 135/59 L 12/30/21 11:09 Pulse Ox 95 12/30/21 11:09 O2 Del Method 12/30/21 11:09 BMI result Body Mass Index 44.9 Const: Other: Patient lying flat in bed, does not appear in distress General: cooperative, comfortable, no acute distress, alert and awake Nutritional Appearance: overweight Orientation/consciousness: patient oriented x3 HEENT: Head: Yes normocephalic Eyes: General: appearance normal, both eyes and all related structures EOM: EOMs intact bilaterally Neck: Other: Thick neck Neck: Yes supple Resp: Effort & Inspection: normal respiratory effort and able to speak in complete sentences Auscultation: clear to auscultation bilaterally and diminished lung sounds Cardio: Rate: regular rate Rhythm: regular rhythm Heart sounds: S1 normal heart sound present and S2 normal heart sound present GI: Inspection: No distended Palpation (GI): Soft to palpation and Tenderness to palpation present (GI) Auscultation: normal bowel sounds : Other: right General: Yes CVA tenderness Back/Spine/Pelvis: Back: CVA tenderness Skin: General skin exam: no rashes or lesions noted Neuro: Other: grossly nonfocal General: patient oriented x3 and moves all extremities Cognition (Neuro): normal cognition Extrem: Other: Right extremity does appear a bit more swollen than the left although there is no pitting edema General: Yes normal to inspection and Yes no pedal edema Objective Data Labs CBC & Chem 7: 12/29/21 05:46 12/30/21 06:00 Labs: Laboratory Results - last 24 hr 12/25/21 12/29/21 12/29/21 06:07 11:37 16:31 Sodium Potassium Chloride Carbon Dioxide Anion Gap BUN Creatinine Estim Creat Clear Calc Estimated GFR POC Glucose 150 H 170 H Random Glucose Calcium IgG Total 1143 IgA Total 251 IgM 225 LISBETH Interpretation SEE NOTE 12/29/21 12/30/21 12/30/21 20:18 06:00 07:04 Sodium 130 L Potassium 5.0 Chloride 101 Carbon Dioxide 21 L Anion Gap 13 BUN 55 H Creatinine 4.70 H* Estim Creat Clear Calc 15.1 Estimated GFR 10 POC Glucose 261 H 158 H Random Glucose 173 H Calcium 7.5 L IgG Total IgA Total IgM LISBETH Interpretation 12/30/21 11:09 Sodium Potassium Chloride Carbon Dioxide Anion Gap BUN Creatinine Estim Creat Clear Calc Estimated GFR POC Glucose 190 H Random Glucose Calcium IgG Total IgA Total IgM LISBETH Interpretation Procedures Date of Service Date of Service: 12/30/21 Assessment & Plan Assessment and plan (1) Acute renal failure (ARF): Status: Acute (2) Hypertensive urgency: Status: Acute (3) Metabolic acidosis: Status: Acute (4) Flank pain: Status: Acute Assessment and Plan: Cause not clear; no stones, vascular studies ok; possibly related to acute GN (5) Anemia: Status: Acute Plan 1. EMIL: rev old rec SCr 1.9 ( 02/2021) and thus EMIL on CKD; suspect most likely CKD > EMIL and has prog DKD/HTN renal dis but a kidney Bx will help definitively r/o any potential reversible component; sero w/u thus far neg/normal s/p kidney Bx 12/29 results pending 2. CKD: as noted above supspect adv CKD from DM/HYN 3. Abd/flnk pain: resolved 4. Anemia: Fe sat 40 % so c/w wth predomininatly epo def; need to r/o Myeloma ( sero pending) 5. MBD of CKD: incr PTH, will check Phos 6. HTN: now controlled --ques too well controlled REC: will cont epo; protect non-dominant arm; recheck Hb as may need xfusion Will follow with team Time Spent With Patient Time: Total time spent is greater than 50% in coordination of care (as documented) at patient's floor/unit and/or counseling patient: Progress Note: Quality Stroke Does the patient have a stroke diagnosis?: No
[2021-12-30 12:16] LABS: Hematocrit 21.8 % (37.0-47.0); Mean Corpuscular HGB Conc 32.1 g/dl (31.0-35.0); Mean Corpuscular Hemoglobin 27.7 pg (27.0-33.0); Mean Corpuscular Volume 86.2 fL (80.0-98.0); Mean Platelet Volume 10.1 fL (9.4-12.3); Platelet Count 236 X10*3/uL (160-400); Red Blood Count 2.53 X10*6/uL (4.20-5.50); Red Cell Distribution Width 14.6 % (11.0-16.0)
[2021-12-30 14:22] LABS: Haptoglobin 249 mg/dL (43-212)
[2021-12-30 14:38] LABS: Anion Gap 15 (12-20); Blood Urea Nitrogen 54 mg/dL (9-16); Calcium 7.8 mg/dL (8.4-10.2); Carbon Dioxide 20 mmol/L (22-29); Chloride 101 mmol/L (96-108); Creatinine Clr Calc Pharmacy 15.6; Estimated Glomerular Filt Rate 10; Glucose Random 185 mg/dL (60-115); Potassium 4.7 mmol/L (3.3-5.1); Sodium 131 mmol/L (135-145)
[2021-12-30 15:43] LABS: Glucose, Whole Blood 199 mg/dL (60-115)
[2021-12-30 18:45] LABS: MANUAL DIFF FLAG NO
[2021-12-30 18:47] LABS: Basophils Percent Auto 0.4 % (0-2); Eosinophils Absolute Auto 0.3 X10*3/uL (0.0-0.4); Eosinophils Percent Auto 4.7 % (0-4); Hematocrit 25.3 % (37.0-47.0); Hemoglobin 8.2 g/dl (12.0-16.0); Imm Gran Abs Auto 0.07 X10*3/uL (0.00-0.03); Lymphocytes Absolute Auto 0.7 X10*3/uL (1.2-4.9); Lymphocytes Percent Auto 9.3 % (20-40); Mean Corpuscular HGB Conc 32.4 g/dl (31.0-35.0); Mean Corpuscular Hemoglobin 27.7 pg (27.0-33.0); Mean Corpuscular Volume 85.5 fL (80.0-98.0); Mean Platelet Volume 9.8 fL (9.4-12.3); Monocytes Absolute Auto 0.7 X10*3/uL (0.1-1.2); Monocytes Percent Auto 9.4 % (2-11); Neutrophils Absolute Auto 5.4 x10*3/uL (2.0-8.3); Neutrophils Percent Auto 75.2 % (45-73); Platelet Count 232 X10*3/uL (160-400); Red Blood Count 2.96 X10*6/uL (4.20-5.50); Red Cell Distribution Width 14.8 % (11.0-16.0); White Blood Count 7.2 X10*3/uL (4.8-10.8)
[2021-12-30 20:10] LABS: Glucose, Whole Blood 217 mg/dL (60-115)
[2021-12-31] VITALS: BP 132/59; PULSE 63; RESP 17; TEMP 37.1; O2SAT 98
[2021-12-31 04:00] VITALS: BP 126/50; PULSE 58; RESP 17; TEMP 37.2; O2SAT 95
[2021-12-31] MEDS: Omeprazole 20 MG CAPSULE.DR PO (04:50)
[2021-12-31] MEDS: 0.9 % Sodium Chloride 1,000 ML 80 ML IVCONT (04:50)
[2021-12-31 07:53] LABS: Glucose, Whole Blood 160 mg/dL (60-115)
[2021-12-31 08:00] VITALS: BP 146/73; PULSE 75; RESP 20; TEMP 35.7; O2SAT 98
[2021-12-31] MEDS: Gabapentin 100 MG CAPSULE PO (08:15)
[2021-12-31] MEDS: Atorvastatin Calcium 80 MG TABLET PO (08:15)
[2021-12-31] MEDS: Cyanocobalamin (Vitamin B-12) 1,000 MCG TABLET 1000 MCG PO (08:15)
[2021-12-31] MEDS: amLODIPine Besylate 5 MG TABLET PO (08:15)
[2021-12-31] MEDS: carvediloL 12.5 MG TABLET PO (08:15)
[2021-12-31] MEDS: Cholecalciferol (Vitamin D3) 25 MCG TABLET 50 MCG PO (08:16)
[2021-12-31] MEDS: Famotidine 20 MG TABLET 10 MG PO (08:16)
[2021-12-31] MEDS: Topiramate 25 MG TABLET PO (08:16)
[2021-12-31] MEDS: levETIRAcetam 500 MG TABLET PO (08:16)
[2021-12-31] MEDS: Triamcinolone Acet 0.5 % Oint 15 GM TUBE 1 APPL TOPICAL (08:20)
--- NOTE | 2021-12-31 08:22 | ECG_ITS ---
Test Reason : chest pain Blood Pressure : / mmHG Vent. Rate : 069 BPM Atrial Rate : 069 BPM P-R Int : 166 ms QRS Dur : 098 ms QT Int : 424 ms P-R-T Axes : 042 010 058 degrees QTc Int : 454 ms Normal sinus rhythm Normal ECG When compared with ECG of 23-DEC-2021 21:36, QT has shortened T wave amplitude has increased in Lateral leads Referred By: Kyleigh Macias Electronically Signed By:EDWARD GUY
[2021-12-31] MEDS: Hydrocortisone 1 % Ointment 28.35 GM TUBE 1 APPL TOPICAL (08:25)
[2021-12-31 09:52] LABS: Troponin-I High Sensitivity 3.8 ng/L (<3.5-17.0)
--- NOTE | 2021-12-31 10:49 | P.PNNP_ITS ---
Subjective Subjective Date of Service: 12/31/21 Interval history: Seen and examined, events noted Physical Exam Vital Signs: Vital Signs: Last Vital Signs Temp 96.2 F L 12/31/21 08:00 Pulse 75 12/31/21 08:00 Resp 20 12/31/21 08:00 BP 146/73 H 12/31/21 08:00 Pulse Ox 98 12/31/21 08:00 O2 Del Method 12/31/21 08:00 BMI result Body Mass Index 44.9 Const: Other: Patient lying flat in bed, does not appear in distress General: cooperative, comfortable, no acute distress, alert and awake Nutritional Appearance: overweight Orientation/consciousness: patient oriented x3 HEENT: Head: Yes normocephalic Eyes: General: appearance normal, both eyes and all related structures EOM: EOMs intact bilaterally Neck: Other: Thick neck Neck: Yes supple Resp: Effort & Inspection: normal respiratory effort and able to speak in complete sentences Auscultation: clear to auscultation bilaterally and diminished lung sounds Cardio: Rate: regular rate Rhythm: regular rhythm Heart sounds: S1 normal heart sound present and S2 normal heart sound present GI: Inspection: No distended Palpation (GI): Soft to palpation and Tenderness to palpation present (GI) Auscultation: normal bowel sounds : Other: right General: Yes CVA tenderness Back/Spine/Pelvis: Back: CVA tenderness Skin: General skin exam: no rashes or lesions noted Neuro: Other: grossly nonfocal General: patient oriented x3 and moves all extremities Cognition (Neuro): normal cognition Extrem: Other: Right extremity does appear a bit more swollen than the left although there is no pitting edema General: Yes normal to inspection and Yes no pedal edema Objective Data Labs CBC & Chem 7: 12/30/21 18:32 12/30/21 11:51 Labs: Laboratory Results - last 24 hr 12/27/21 12/28/21 12/30/21 08:08 05:36 11:09 WBC RBC Hgb Hct MCV MCH MCHC RDW Plt Count MPV Immature Gran % (Auto) Neut % (Auto) Lymph % (Auto) [place] % (Auto) Eos % (Auto) Baso % (Auto) Lymph # (Auto) [place] # (Auto) Eos # (Auto) Baso # (Auto) Abs Immat Gran (auto) Absolute Neuts (auto) Absolute Nucleated RBC Nucleated RBC % (auto) Smear Path Review Haptoglobin 249 H Sodium Potassium Chloride Carbon Dioxide Anion Gap BUN Creatinine Estim Creat Clear Calc Estimated GFR POC Glucose 190 H Random Glucose Calcium Troponin I High Sens Blood Type Antibody Screen Crossmatch See Detail 12/30/21 12/30/21 12/30/21 11:51 11:51 11:51 WBC 7.0 RBC 2.53 L Hgb 7.0 L* Hct 21.8 L MCV 86.2 MCH 27.7 MCHC 32.1 RDW 14.6 Plt Count 236 MPV 10.1 Immature Gran % (Auto) Neut % (Auto) Lymph % (Auto) [place] % (Auto) Eos % (Auto) Baso % (Auto) Lymph # (Auto) [place] # (Auto) Eos # (Auto) Baso # (Auto) Abs Immat Gran (auto) Absolute Neuts (auto) Absolute Nucleated RBC 0.000 Nucleated RBC % (auto) 0.0 Smear Path Review SEE NOTE Haptoglobin Sodium 131 L Potassium 4.7 Chloride 101 Carbon Dioxide 20 L Anion Gap 15 BUN 54 H Creatinine 4.56 H* Estim Creat Clear Calc 15.6 Estimated GFR 10 POC Glucose Random Glucose 185 H Calcium 7.8 L Troponin I High Sens Blood Type A Positive Antibody Screen NEGATIVE Crossmatch See Detail 12/30/21 12/30/21 12/30/21 15:39 18:32 19:48 WBC 7.2 RBC 2.96 L Hgb 8.2 L Hct 25.3 L MCV 85.5 MCH 27.7 MCHC 32.4 RDW 14.8 Plt Count 232 MPV 9.8 Immature Gran % (Auto) 1.0 H Neut % (Auto) 75.2 H Lymph % (Auto) 9.3 L [place] % (Auto) 9.4 Eos % (Auto) 4.7 H Baso % (Auto) 0.4 Lymph # (Auto) 0.7 L [place] # (Auto) 0.7 Eos # (Auto) 0.3 Baso # (Auto) 0.0 Abs Immat Gran (auto) 0.07 H Absolute Neuts (auto) 5.4 Absolute Nucleated RBC 0.000 Nucleated RBC % (auto) 0.0 Smear Path Review Haptoglobin Sodium Potassium Chloride Carbon Dioxide Anion Gap BUN Creatinine Estim Creat Clear Calc Estimated GFR POC Glucose 199 H 217 H Random Glucose Calcium Troponin I High Sens Blood Type Antibody Screen Crossmatch 12/31/21 12/31/21 07:46 08:52 WBC RBC Hgb Hct MCV MCH MCHC RDW Plt Count MPV Immature Gran % (Auto) Neut % (Auto) Lymph % (Auto) [place] % (Auto) Eos % (Auto) Baso % (Auto) Lymph # (Auto) [place] # (Auto) Eos # (Auto) Baso # (Auto) Abs Immat Gran (auto) Absolute Neuts (auto) Absolute Nucleated RBC Nucleated RBC % (auto) Smear Path Review Haptoglobin Sodium Potassium Chloride Carbon Dioxide Anion Gap BUN Creatinine Estim Creat Clear Calc Estimated GFR POC Glucose 160 H Random Glucose Calcium Troponin I High Sens 3.8 Blood Type Antibody Screen Crossmatch Microbiology Microbiology Results: Microbiology 12/29/21 17:40 Urine clean catch - Clean Catch Midstream Urine Culture - Preliminary Culture too young to evaluate. Procedures Date of Service Date of Service: 12/31/21 Assessment & Plan Assessment and plan (1) Acute renal failure (ARF): Status: Acute (2) Hypertensive urgency: Status: Acute (3) Metabolic acidosis: Status: Acute (4) Flank pain: Status: Acute Assessment and Plan: Cause not clear; no stones, vascular studies ok; possibly related to acute GN (5) Anemia: Status: Acute Plan 1. EMIL: rev old rec SCr 1.9 ( 02/2021) and thus EMIL on CKD; suspect most likely CKD > EMIL and has prog DKD/HTN renal dis but a kidney Bx will help definitively r/o any potential reversible component; sero w/u thus far neg/normal s/p kidney Bx 12/29 results pending ( prelim by verbal com this am is that it looks like DN ) 2. CKD: as noted above supspect adv CKD from DM/HYN 3. Abd/flnk pain: resolved 4. Anemia: Fe sat 40 % so c/w wth predomininatly epo def; need to r/o Myeloma ( sero pending) 5. MBD of CKD: incr PTH, will check Phos 6. HTN: controlled --ques too well controlled REC: will cont epo; protect non-dominant arm; ok to d/c home and I will arrange f/u with Dr Campa in 1-2 weeks and fortunato cont epo as outpt at our office Will follow with team Time Spent With Patient Time: Total time spent is greater than 50% in coordination of care (as documented) at patient's floor/unit and/or counseling patient: Progress Note: Quality Stroke Does the patient have a stroke diagnosis?: No
[2021-12-31 10:56] LABS: Glucose, Whole Blood 162 mg/dL (60-115)
[2021-12-31 11:38] VITALS: BP 134/65; PULSE 69; RESP 20; TEMP 36.1; O2SAT 96
--- NOTE | 2021-12-31 11:45 | PM.DS ---
DS: Providers Provider Date of Service: 12/31/21 Date of admission: 12/24/21 03:36 Date of discharge: 12/31/21 Primary care physician: Delfina Butler MD Consults: 12/24/21 07:57 Consult to Nephrology Routine Consulting Provider: Misael Mejía Reason for consultation: EMIL Has provider been notified: No Attending physician on discharge: Ben Cox Discharging clinician: Kyleigh Macias DS: Diagnosis Discharge Diagnosis (1) Acute renal failure (ARF): Status: Acute (2) Hypertensive urgency: Status: Acute (3) Metabolic acidosis: Status: Acute (4) Flank pain: Status: Acute (5) Anemia: Status: Acute DS: Summary Hospital Course Hospital Course: From H&P on day of admission This is a 56-year-old female with past medical history of diabetes, HLD, HTN, CAREY measure for CPAP, underlying CKD, who presents to the hospital with abnormal labs.? Patient reports that she went to her PCP for routine labs prior to starting school when she was called by her primary care physician asking her to come to the hospital due to her kidney levels being abnormal.? Patient reports throughout the day she was feeling unwell, lightheaded, nauseous, and generally not feeling too well.? Patient is complaining of midsternal chest pain, constant, heavy, nonradiating, 5/10 with associated with exertion or relieved with rest. she is also complaining left leg pain, nonradiating, no recent travel or immobility. Patient denies any abdominal pain nausea or vomiting, no diarrhea or constipation, no urinary symptoms. On arrival to the ED patient hemodynamically stable with elevated blood pressure of 208/89 Labs are significant for WBC count of 8.2, hemoglobin of 8.4, hematocrit 25, no previous for comparison, pH of 7.27, sodium of 133, bicarb of 19, BUN of 59, creatinine of 4.74, glucose of 673, UA negative for any acute infection CT abdomen shows no evidence of obstruction.? Because of the patient's flank pain and renal dysfunction is not found on the CT abdomen.? Patient started on IV fluids and will be admitted for further management EMIL on CKD3.? Initially treated with VIF. . unclear baseline creatinine, although patient reports she has a history of CKD3.no obstruction on CT abdomen. US negative for renal vein/renal artery thrombus. Seen by nephrology, underwent kidney biopsy 12/29, preliminary diagnosis diabetic nephropathy. Creatinine 4.56 on day of discharge. Will need close outpatient follow up with nephrology. metabolic acidosis. Secondary to EMIL Chronic Normocytic anemia no baseline for comparison. pt states she has h/o anemia and follows with [facility], has had blood transfusion in the past on one occasion. likely in part r/t anemia of chronic dz. b12, folate wnl, iron ok. H/H trending down, status post 2 unit PRBCs transfused. No evidence of acute blood loss. Right flank pain. CT, US with no clear cause of pain. UA not suggestive of infection, pt denies dysuria. Resolved. Hypertensive urgency. dose of Norvasc increased to 5 mg daily, continue on Coreg. Blood pressure under adequate control at this time. Diabetes Sliding scale, ADA diet. With worsening renal function patient POCs trending down. Lantus was decreased and then eventually discontinued. Point of care blood sugars have remained 200 and under. Recommend to continue insulin sliding scale upon discharge. Monitor blood sugar closely and recommend close follow-up low with PCP to determine need to reintroduce Lantus. right lower extremity swelling b/l LE US negative for DVT h/o seizure disorder. Dose of Keppra decreased to once daily per pharmacy recommendation based on renal function. Time Spent with Patient Time attestation: Total time spent providing and/or coordinating discharge services: Discharge coordination time: Greater than 30 minutes Quality: Safe Use of Opioids Does Pt have an Active Cancer Diagnosis on the Problem List?: No Quality: Stroke Does the patient have a stroke diagnosis?: No Physical Exam Vital Signs: Vital Signs: Last Vital Signs Temp 97.0 F 12/31/21 11:38 Pulse 69 12/31/21 11:38 Resp 20 12/31/21 11:38 BP 134/65 12/31/21 11:38 Pulse Ox 96 12/31/21 11:38 O2 Del Method 12/31/21 11:38 BMI result Body Mass Index 44.9 Const: General: cooperative, comfortable, alert and awake Nutritional Appearance: overweight Orientation/consciousness: patient oriented x3 Resp: Effort & Inspection: normal respiratory effort and able to speak in complete sentences Auscultation: clear to auscultation bilaterally Cardio: Rate: regular rate Heart sounds: S1 normal heart sound present and S2 normal heart sound present GI: Inspection: No distended Palpation (GI): Soft to palpation Neuro: Other: grossly nonfocal General: patient oriented x3 Extrem: General: Yes no pedal edema DS: Data Data Completed and Pending Completed studies during hospitalization [Text1]: Pending at discharge 12/29/21 12:43 Surgical Path [Surgical] [PTH] Routine Labs on day of discharge: Laboratory Results - last 24 hr 12/27/21 12/28/21 12/30/21 08:08 05:36 11:51 WBC 7.0 RBC 2.53 L Hgb 7.0 L* Hct 21.8 L MCV 86.2 MCH 27.7 MCHC 32.1 RDW 14.6 Plt Count 236 MPV 10.1 Immature Gran % (Auto) Neut % (Auto) Lymph % (Auto) [place] % (Auto) Eos % (Auto) Baso % (Auto) Lymph # (Auto) [place] # (Auto) Eos # (Auto) Baso # (Auto) Abs Immat Gran (auto) Absolute Neuts (auto) Absolute Nucleated RBC 0.000 Nucleated RBC % (auto) 0.0 Smear Path Review SEE NOTE Haptoglobin 249 H Sodium Potassium Chloride Carbon Dioxide Anion Gap BUN Creatinine Estim Creat Clear Calc Estimated GFR POC Glucose Random Glucose Calcium Troponin I High Sens Blood Type Antibody Screen Crossmatch See Detail 12/30/21 12/30/21 12/30/21 11:51 11:51 15:39 WBC RBC Hgb Hct MCV MCH MCHC RDW Plt Count MPV Immature Gran % (Auto) Neut % (Auto) Lymph % (Auto) [place] % (Auto) Eos % (Auto) Baso % (Auto) Lymph # (Auto) [place] # (Auto) Eos # (Auto) Baso # (Auto) Abs Immat Gran (auto) Absolute Neuts (auto) Absolute Nucleated RBC Nucleated RBC % (auto) Smear Path Review Haptoglobin Sodium 131 L Potassium 4.7 Chloride 101 Carbon Dioxide 20 L Anion Gap 15 BUN 54 H Creatinine 4.56 H* Estim Creat Clear Calc 15.6 Estimated GFR 10 POC Glucose 199 H Random Glucose 185 H Calcium 7.8 L Troponin I High Sens Blood Type A Positive Antibody Screen NEGATIVE Crossmatch See Detail 12/30/21 12/30/21 12/31/21 18:32 19:48 07:46 WBC 7.2 RBC 2.96 L Hgb 8.2 L Hct 25.3 L MCV 85.5 MCH 27.7 MCHC 32.4 RDW 14.8 Plt Count 232 MPV 9.8 Immature Gran % (Auto) 1.0 H Neut % (Auto) 75.2 H Lymph % (Auto) 9.3 L [place] % (Auto) 9.4 Eos % (Auto) 4.7 H Baso % (Auto) 0.4 Lymph # (Auto) 0.7 L [place] # (Auto) 0.7 Eos # (Auto) 0.3 Baso # (Auto) 0.0 Abs Immat Gran (auto) 0.07 H Absolute Neuts (auto) 5.4 Absolute Nucleated RBC 0.000 Nucleated RBC % (auto) 0.0 Smear Path Review Haptoglobin Sodium Potassium Chloride Carbon Dioxide Anion Gap BUN Creatinine Estim Creat Clear Calc Estimated GFR POC Glucose 217 H 160 H Random Glucose Calcium Troponin I High Sens Blood Type Antibody Screen Crossmatch 12/31/21 12/31/21 08:52 10:44 WBC RBC Hgb Hct MCV MCH MCHC RDW Plt Count MPV Immature Gran % (Auto) Neut % (Auto) Lymph % (Auto) [place] % (Auto) Eos % (Auto) Baso % (Auto) Lymph # (Auto) [place] # (Auto) Eos # (Auto) Baso # (Auto) Abs Immat Gran (auto) Absolute Neuts (auto) Absolute Nucleated RBC Nucleated RBC % (auto) Smear Path Review Haptoglobin Sodium Potassium Chloride Carbon Dioxide Anion Gap BUN Creatinine Estim Creat Clear Calc Estimated GFR POC Glucose 162 H Random Glucose Calcium Troponin I High Sens 3.8 Blood Type Antibody Screen Crossmatch Preliminary micro results at discharge 12/29/21 17:40 Urine Culture - Preliminary Urine clean catch - Clean Catch Midstream Culture too young to evaluate. Discharge Plan Discharge Patient Disposition: Home, Self-Care Discharge Diagnosis: EMIL on CKD3 Referrals: Mateus Campa MD [Physician] - 1 Week Delfina Butler MD [Primary Care Provider] - 1 Week Discharge Medications: New amlodipine 5 mg Tablet 5 mg PO DAILY 30 Days Qty: 30 0RF Protocol: Hold for SBP< HOLD for SBP < : 90 Continued atorvastatin 80 mg tablet 1 tab PO DAILY carvedilol 12.5 mg tablet 1 tab PO BID loperamide 2 mg capsule 1 cap PO Q6H PRN (Reason: Diarrhea) cyanocobalamin (vitamin B-12) [Vitamin B-12] 1,000 mcg tablet 1 tab PO DAILY topiramate 25 mg tablet 1 tab PO DAILY famotidine 20 mg tablet 1 tab PO DAILY pantoprazole 40 mg tablet,delayed release (DR/EC) 1 tab PO DAILY aspirin 81 mg tablet,chewable 1 tab PO DAILY gabapentin 100 mg capsule 1 cap PO TID insulin lispro 100 unit/mL insulin pen See Protocol subcut TIDAC Protocol: Insulin Correction Scale Less than or equal to 110 ---- Give (units): 0 111 to 150 Give (units): 0 151 to 200 Give (units): 2 201 to 250 Give (units): 4 251 to 300 Give (units): 6 301 to 350 Give (units): 8 Greater than 350 Give (units): 10 Call MD if Blood Glucose > : 350 Rx Instructions: sliding scale lactulose 10 gram/15 mL solution 15 ml PO DAILY PRN (Reason: Constipation) cholecalciferol (vitamin D3) [Vitamin D3] 50 mcg (2,000 unit) capsule 1 cap PO DAILY Ozempic 1 mg/dose (2 mg/1.5 mL) pen injector 1 mg SUBCUT SA@0900 clindamycin phosphate 1 % gel 1 applic topical BID hydrocortisone 2.5 % ointment 1 appl topical BID betamethasone dipropionate 0.05 % ointment 1 appl topical BID calcipotriene 0.005 % ointment 1 applic topical BID Changed levetiracetam 500 mg tablet 500 mg PO DAILY Qty: 30 0RF Discontinued amlodipine 2.5 mg tablet 1 tab PO DAILY insulin glargine [Lantus Solostar U-100 Insulin] 100 unit/mL (3 mL) insulin pen 55 unit subcut BID Rx Instructions: sliding scale Discharge Orders: Discharge Order (Routine); Ordered 12/31/21 Ordered By: Kyleigh Macias Activity on Discharge: As tolerated Stand Alone Forms: Patient Portal Discharge page Other Ambulatory Orders: Basic Metabolic Panel (Routine) Timeframe: 1 Week Facility: [facility] - Location: Laboratory Ordered By: Kyleigh Macais Complete Blood Count no Diff (Routine) Timeframe: 1 Week Facility: [facility] - Location: Laboratory Ordered By: Kyleigh Macias Care Plan Goals: see below Health Concerns: Acute renal failure metabolic acidosis Right flank pain uncontrolled blood pressure Plan of Treatment: Will need close outpatient follow-up with Nephrology Repeat labs in 1 week Dose of Norvasc was increased to 5 mg daily to control blood pressure Dose of Keppra was decreased to 500 mg daily based on current kidney function Lantus was stopped. Continue to monitor your blood sugar before meals and at bedtime and continue insulin sliding scale. Will need close outpatient follow-up with PCP to determine need to resume Lantus. If blood sugar persistently above 200 may need to resume Lantus, would recommend to call PCP to schedule follow up appointment in the next one week. Assessment: see discharge summary Discharge Date/Time: 12/31/21 14:16
[2021-12-31] MEDS: Insulin Lispro 100 UNIT/ML 3 ML VIAL SUBCUT (11:58)
== END 2021-12-31 14:16 | disposition home or self-care (01) | DRG 469 ==
LOC: HO.ED 12-24 03:35 → HO.EDOVER 12-24 03:43 → HO.S3 12-24 23:48
PROVIDERS: Internal Medicine Nephrology; Nurse Practitioner Acute Care; Physician Assistant; Radiology Diagnostic Radiology; Admitting Provider Internal Medicine; Emergency Provider Internal Medicine; PCP Internal Medicine; Visit Provider Physician Assistant Medical
DX: N17.9 Acute kidney failure, unspecified (principal); E11.22 Type 2 diabetes mellitus with diabetic chronic kidney disease; D63.1 Anemia in chronic kidney disease; E87.2 Acidosis; I12.9 Hypertensive chronic kidney disease with stage 1 through stage 4 chronic kidney disease, or unspecified chronic kidney disease; E11.65 Type 2 diabetes mellitus with hyperglycemia; I16.0 Hypertensive urgency; N18.30 Chronic kidney disease, stage 3 unspecified; E78.5 Hyperlipidemia, unspecified; E86.0 Dehydration; E66.01 Morbid (severe) obesity due to excess calories; G40.909 Epilepsy, unspecified, not intractable, without status epilepticus; G47.30 Sleep apnea, unspecified; Z68.42 Body mass index [BMI] 45.0-49.9, adult; N25.0 Renal osteodystrophy; M79.89 Other specified soft tissue disorders; Z20.822 Contact with and (suspected) exposure to COVID-19; Z91.040 Latex allergy status; Z91.14 Patient's other noncompliance with medication regimen; Z88.0 Allergy status to penicillin; Z79.4 Long term (current) use of insulin; Z79.82 Long term (current) use of aspirin; Z79.899 Other long term (current) drug therapy
CPT/HCPCS: 36415; 50200; 71045; 74176; 76775; 77012; 80048; 80076; 81001; 82009; 82306; 82607; 82728; 82746; 82784; 82803; 82947; 83010; 83540; 83615; 83690; 83970; 84100; 84484; 85025; 85027; 85610; 86021; 86160; 86334; 86704; 86706; 86803; 86850; 86900; 86901; 86923; 87086; 87340; 87635; 88300; 88305; 88313; 88346; 88348; 88350; 93005; 93970; 93975; 94660; 96361; 96374; 96375; 99152; 99285; J2250; J2270; J2405; J2597; P9016; Q0163

== ENCOUNTER 2022-01-22 16:08 | Inpatient (IN) | payer OTHER, SELFPAY ==
--- NOTE | ~2022-01-22 | IR_ITS ---
PROCEDURE: IR INSERTION OF CENTRAL VENOUS CATHETER CLINICAL INFORMATION: Renal failure. COMPARISON: None TECHNIQUE: Procedure and risks and benefits including bleeding, infection and pneumothorax were discussed with the patient and informed consent was obtained. All elements of maximal sterile barrier technique followed including use of cap, mask, sterile gown, sterile gloves, a sterile full body drape and hand hygiene. Also followed skin preparation with 2% chlorhexidine for cutaneous antisepsis, and sterile ultrasound preparation with sterile gel and probe cover when applicable. The right neck was prepped and draped in the usual sterile fashion. The skin and soft tissues were anesthetized with 1% lidocaine plain. Using ultrasound guidance and a 5-Syrian micropuncture system, right internal jugular vein access was obtained. Over an 018 wire, a 5-Syrian dilator with a 5 guidewire was advanced through the 5-Syrian dilator into the IVC. Following serial dilatation, a 13 cm in length temporary Mahurkar dialysis catheter was positioned. Catheter tip is in the SVC. Both ports flush well and had blood return and were instilled with 1.2 mL heparin 1000 unit per mL solution. Fluoroscopy time 0.5 minutes. DAP 135 CG Y per centimeter squared. Real-time ultrasound guidance was used to document vein patency and for needle entry. A formal ultrasound picture was record. FINDINGS: There is a right jugular temporary dialysis catheter with tip projecting over the SVC. IR/IR cvc insert non tunnel IMPRESSION: Right internal jugular 12-Syrian 13 cm in length Mahurkar dialysis catheter placement.
--- NOTE | ~2022-01-22 | IR_ITS ---
PROCEDURE: IR INSERTION OF TUNNEL CATHETER CLINICAL INFORMATION: Conversion of temporary dialysis catheter to a permacath for renal dialysis. COMPARISON: None TECHNIQUE: Following explanation of conversion of present right temporary dialysis catheter to a tunneled permacatheter procedure, benefits and risks, a written consent was obtained. Patient was placed on ultrasound stretcher and the right anterior chest was cleaned and draped in usual sterile manner. 1% lidocaine was injected along the right anterior chest wall approximately 1 gauze length from the right anterior neck incision. A small skin incision was performed. A blunt tunneler attached to the permacatheter was then tunneled blindly subcutaneously from the right anterior chest wall incision to the right neck incision and the entire unit was pulled out. The sutures attached to the temporary dialysis catheter were severed. A long guidewire was advanced through one of the lumens of the dialysis catheter and the catheter was pulled out. A 14 Ethiopian dilator sheath was advanced over the guidewire and the guidewire and dilator were removed. The tunneler attached to the permacatheter was removed. The permacatheter was then inserted through the peel-away sheath. The peel-away sheath was removed as the permacatheter was held in position. A single image was obtained over the chest documenting the tip of the permacatheter in the proximal SVC. The peel-away sheath was removed and both ports of the permacatheter were flushed with saline followed by instillation of heparin. Sterile dressing was placed on the right anterior chest wall incision. The neck incision was sutured with absorbable 3-0 sutures. Sterile dressing was applied at the site as well. Patient tolerated the procedure extremely well. Conscious sedation was utilized for 30 minutes. All elements of maximal sterile barrier technique followed including use of cap, mask, sterile gown, sterile gloves, a sterile full body drape and hand hygiene. Also followed skin preparation with 2% chlorhexidine for cutaneous antisepsis, and sterile ultrasound preparation with sterile gel and probe cover when applicable. FINDINGS: Successful fluoroscopy-guided conversion of right temporary dialysis catheter to a 14 Ethiopian 23 cm long dual lumen permacatheter. The catheter tip is in SVC ready for use. IR/IR cvc insert central tunnel IMPRESSION: Successful fluoroscopy-guided conversion of right temporary dialysis catheter to a 14 Ethiopian 23 cm long dual lumen permacatheter. Fluoroscopy time: 0.9 minutes. Dose: 0.186 cGy cm square. Images: 1.
--- NOTE | ~2022-01-22 | XR_ITS ---
EXAMINATION: XR CHEST CLINICAL INFORMATION: Elevated WBC COMPARISON: Chest x-ray on 12/23/2021 TECHNIQUE: 2 views of the chest were obtained. FINDINGS: No significant abnormality is noted involving the heart, lungs, mediastinum, bony thorax or soft tissues. XR/XR chest 2V IMPRESSION: Unremarkable examination.
--- NOTE | ~2022-01-22 | XR_ITS ---
EXAMINATION: XR CHEST CLINICAL INFORMATION: Low-grade fever. COMPARISON: 01/26/2022 chest radiographs. TECHNIQUE: Frontal view of the chest was obtained. FINDINGS: Support devices: Right-sided central venous internal jugular catheter with tip terminating in the superior vena cava. The lungs are clear. The heart and mediastinal structures are unremarkable. XR/XR chest 1V IMPRESSION: No acute cardiopulmonary process.
[2022-01-22 17:47] VITALS: BP 228/95; PULSE 95; RESP 16; TEMP 36.6; O2SAT 99; BMI 45.5
[2022-01-22 19:12] LABS: MANUAL DIFF FLAG NO
[2022-01-22 19:13] LABS: Basophils Percent Auto 0.3 % (0-2); Eosinophils Absolute Auto 0.4 X10*3/uL (0.0-0.4); Eosinophils Percent Auto 4.2 % (0-4); Hemoglobin 7.7 g/dl (12.0-16.0); Imm Gran Abs Auto 0.05 X10*3/uL (0.00-0.03); Imm Gran Pct Auto 0.6 % (0.0-0.4); Lymphocytes Absolute Auto 0.9 X10*3/uL (1.2-4.9); Lymphocytes Percent Auto 9.9 % (20-40); Mean Corpuscular HGB Conc 33.5 g/dl (31.0-35.0); Mean Corpuscular Hemoglobin 27.2 pg (27.0-33.0); Mean Corpuscular Volume 81.3 fL (80.0-98.0); Mean Platelet Volume 9.5 fL (9.4-12.3); Monocytes Absolute Auto 0.5 X10*3/uL (0.1-1.2); Monocytes Percent Auto 5.4 % (2-11); Neutrophils Percent Auto 79.6 % (45-73); Platelet Count 153 X10*3/uL (160-400); Red Blood Count 2.83 X10*6/uL (4.20-5.50); Red Cell Distribution Width 16.1 % (11.0-16.0); White Blood Count 8.8 X10*3/uL (4.8-10.8)
[2022-01-22 19:14] LABS: Appearance Urine Clear; Color Urine Yellow; Glucose Urine UA >=1000 mg/dL (Negative); Leukocyte Esterase Urine Negative (Negative); Nitrite Urine Negative (Negative); PH 6.5 (5.0-9.0); Specific Gravity - Urine 1.015 (1.005-1.025); UMIC TRIGGER UACC YES; Urine Blood Small (1+) (Negative); Urine Ketones Negative (Negative); Urine Protein 300 (3+) mg/dL (Neg-Trace)
[2022-01-22 19:33] LABS: Bacteria Urine None Seen (None Seen); Hyaline Casts Urine 0-2 /LPF (0-2); Squamous Epithelial Cell Urine 0-2 /HPF (0-2); WBC Urine 0-5 /HPF (0-5)
[2022-01-22 19:33] LABS: B Type Natriuretic Peptide 39 pg/mL (<100)
[2022-01-22 19:35] LABS: Anion Gap 15 (12-20); Blood Urea Nitrogen 67 mg/dL (9-16); Calcium 7.6 mg/dL (8.4-10.2); Carbon Dioxide 17 mmol/L (22-29); Chloride 108 mmol/L (96-108); Creatinine Clr Calc Pharmacy 12.1; Estimated Glomerular Filt Rate 7; Glucose Random 469 mg/dL (60-115); Potassium 4.2 mmol/L (3.3-5.1); Sodium 136 mmol/L (135-145)
--- NOTE | 2022-01-22 20:44 | ED.GENADULT ---
HPI - General Adult General Chief complaint: Back Pain/Injury Stated complaint: severe back pain/cloudy urine Time Seen by Provider: 01/22/22 20:44 Source: patient Mode of arrival: ambulatory Limitations: no limitations History of Present Illness HPI narrative: This 56-year-old female past medical history significant for acute renal failure, hypertensive urgency, anemia, GERD, diabetes presenting to the emergency department complaints of severe right side of flank pain that radiates into the right lower quadrant of her abdomen. She describes the pain is intermittent in nature, sharp and stabbing, tells me it is very severe pain. She also reports complaints of right-sided lower extremity swelling and calf discomfort. Tells me all this has been going on for a few weeks and possibly months. Patient tells me she is followed by a [employer] kil[employer] operator who told her that her kidneys are not good, they are working on a plan. Patient reports that she has been urinating more frequently and that her urine is cloudy. Patient denies chest pain, shortness of breath, headache, vision changes, dizziness, weakness. Related Data Home Medications Medication Instructions Recorded Confirmed aspirin 81 mg chewable tablet 1 tab PO DAILY 12/24/21 12/24/21 atorvastatin 80 mg tablet 1 tab PO DAILY 12/24/21 12/24/21 betamethasone dipropionate 0.05 % 1 appl topical BID 12/24/21 12/24/21 topical ointment calcipotriene 0.005 % topical 1 applic topical BID 12/24/21 12/24/21 ointment carvedilol 12.5 mg tablet 1 tab PO BID 12/24/21 12/24/21 cholecalciferol (vitamin D3) 50 1 cap PO DAILY 12/24/21 12/24/21 mcg (2,000 unit) capsule (Vitamin D3) clindamycin phosphate 1 % topical 1 applic topical BID 12/24/21 12/24/21 gel cyanocobalamin (vitamin B-12) 1 tab PO DAILY 12/24/21 12/24/21 1,000 mcg tablet (Vitamin B-12) famotidine 20 mg tablet 1 tab PO DAILY 12/24/21 12/24/21 gabapentin 100 mg capsule 1 cap PO TID 12/24/21 12/24/21 hydrocortisone 2.5 % topical 1 appl topical BID 12/24/21 12/24/21 ointment insulin lispro 100 unit/mL See Protocol subcut TIDAC 12/24/21 12/24/21 subcutaneous pen lactulose 10 gram/15 mL oral 15 ml PO DAILY PRN Constipation 12/24/21 12/24/21 solution loperamide 2 mg capsule 1 cap PO Q6H PRN Diarrhea 12/24/21 12/24/21 pantoprazole 40 mg tablet,delayed 1 tab PO DAILY 12/24/21 12/24/21 release semaglutide 1 mg/dose (2 mg/1.5 1 mg subcut SA@0900 12/24/21 12/24/21 mL) subcutaneous pen injector (Ozempic) topiramate 25 mg tablet 1 tab PO DAILY 12/24/21 12/24/21 Previous Rx's Medication Instructions Recorded amlodipine 5 mg tablet 5 mg PO DAILY 30 days #30 tabs 12/31/21 levetiracetam 500 mg tablet 500 mg PO DAILY #30 tabs 12/31/21 Allergies Allergy/AdvReac Type Severity Reaction Status Date / Time cortex Eucommiae Allergy Severe ANAPHYLAXIS Verified 12/23/21 21:10 [CORTEX EUCOMMIAE] egg [EGG] Allergy Severe VOMITING Verified 12/23/21 21:10 latex [LATEX] Allergy Severe HIVES Verified 12/23/21 21:10 Penicillins [PENICILLINS] Allergy Severe HIVES Verified 12/23/21 21:10 vancomycin [VANCOMYCIN] Allergy Severe HIVES Verified 12/23/21 21:10 Review of Systems Review of Systems: Constitutional : No Weight loss, No Fever, No Chills, No Fatigue, No Malaise ENT/Mouth : No sore throat, No Rhinorrhea Eyes: No Eye Pain, No Swelling, No Redness Cardiovascular : No Chest Pain, No SOB, No Dyspnea on Exertion, No Orthopnea, No Edema, No Palpitations Respiratory : No Cough, No Sputum, No Wheezing Gastrointestinal : No Nausea, No Vomiting, No Diarrhea, No Constipation, No abdominal Pain, No Hematochezia, No Melena Genitourinary : No Dysuria, + Urinary Frequency, No Hematuria, + dark urine Musculoskeletal : No joint pain, No Myalgias, No Joint Swelling, + r. flank pain Skin : No Skin Lesions, No rash Neuro : No Weakness, No Numbness, No Dizziness, No Headache Psych : No Anxiety/Panic, No Depression All other systems reviewed and are negative Yes all other systems are reviewed and are negative [facility] Past Medical History Attestation statement: The following information was validated with the patient. Source: old records reviewed and nursing notes reviewed Medical History Diabetes Hyperlipidemia Hypertension Lower back pain Partial deafness Sleep apnea Surgical History History of carpal tunnel surgery Previous back surgery Family History Family History Other No family history of coronary artery disease Social History Social History Household Members: Spouse Housing: House Do you presently have visiting nurse or other home services: No Alcohol intake: never Patient Tobacco Use Status: Never used Tobacco Second Hand Smoke Exposure: No Advance Directives: No Advance Directives Information Provided: No service: No Current occupational status: disabled Physical Exam ED Vital Signs: Vital Signs - 24 hr 01/22/22 17:47 01/22/22 21:17 01/22/22 23:26 Temperature 97.9 F 98.0 F 98.7 F Pulse Rate 95 84 86 Respiratory Rate 16 18 18 Blood Pressure 228/95 H 207/91 H 214/91 H Pulse Oximetry 99 100 100 Oxygen Delivery Method Room Air Room Air Room Air 01/22/22 23:47 Temperature Pulse Rate 79 Respiratory Rate 17 Blood Pressure 193/84 H Pulse Oximetry 99 Oxygen Delivery Method Room Air BMI result Body Mass Index 45.5 Vital signs significant for hypertension. Appearance: Alert.? Oriented X3.? No acute distress.? Head: Normocephalic, atraumatic, no step-offs or deformities Eyes: Pupils equal, round and reactive to light.? ENT: Pharynx normal.? Neck: Normal inspection.? Neck supple.? CVS: Normal heart rate and rhythm.? Pulses normal.? Respiratory: No respiratory distress.? Breath sounds normal.? Abdomen: Soft and nontender.? Skin: Skin warm and dry.? Normal skin color.? Normal skin turgor.? Extremities: No lower extremity edema.? No calf ttp, negative lalo b/l. 5/5 strength to bilateral upper and lower extremities Back: No midline tenderness, no C-spine tenderness, full range of motion, positive right-sided CVA tenderness. Neuro: Oriented X 3.? No motor deficit.? No sensory deficit. CN 2-12 intact Course Reevaluation(s) Reevaluation #1: CBC appears to be around patient's baseline, platelets lower than usual. Chemistry with acute on chronic kidney injury BUN of 67, creatinine of 6.17, random glucose of 469, patient not on a diuretic, no BOBY-inhibitor or Arb inhibitor, no aminoglycosides, patient not on metformin, not taking NSAIDs.. Will obtain VBG, acetone to rule out DKA. UA with protein, blood, glucose. No signs of infection however. Time: 21:00 Reevaluation #2: Patient's VBG with acidosis as previously seen. Acetone negative, urine without ketones, unlikely that this is DKA. Time: 21:49 Reevaluation #3: This case was discussed with my attending , recommends repeating CMP and likely hospital admission. Venous duplex of right lower extremity without evident DVT however unable to visualize the peroneal vein. I did advised patient that if symptoms continue she may need a follow-up ultrasound in 5-7 days. Time: 22:51 Additional Reevaluation(s): Patients blood pressure improving 193/84. Patient will be admitted to the hospitalist team for hypertensive urgency, hyperglycemia, right flank pain, acute on chronic kidney injury. Responded well to IV labetalol. Medical Decision Making MDM Narrative Medical decision making narrative: 2100 56-year-old female presents with right-sided flank pain that radiates down to the her right lower abdomen, also reporting cloudy urine, urinary frequency. Physical examination with right-sided CVA tenderness. Plan at this time is to obtain basic labs, urine, imaging, VBG, acetone. Pressure elevated- home meds will be given Concerns for obstructive uropathy, pylonephritis, kidney stones, UTI versus cystitis. Other differentials include musculoskeletal pain. Unlikely AAA. Also concerns for worsening kidney function Medical Records Medical records reviewed: Yes I reviewed the patient's medical records. Lab Data Lab results reviewed: Yes I reviewed the patient's lab results. Result diagrams: 01/22/22 19:06 01/22/22 19:06 Labs: Lab Results 01/22/22 01/22/22 01/22/22 Range/Units 19:06 19:06 19:06 WBC 8.8 (4.8-10.8) X10*3/uL RBC 2.83 L (4.20-5.50) X10*6/uL Hgb 7.7 L (12.0-16.0) g/dl Hct 23.0 L (37.0-47.0) % MCV 81.3 (80.0-98.0) fL MCH 27.2 (27.0-33.0) pg MCHC 33.5 (31.0-35.0) g/dl RDW 16.1 H (11.0-16.0) % Plt Count 153 L D (160-400) X10*3/uL MPV 9.5 (9.4-12.3) fL Immature Gran % (Auto) 0.6 H (0.0-0.4) % Neut % (Auto) 79.6 H (45-73) % Lymph % (Auto) 9.9 L (20-40) % Moore % (Auto) 5.4 (2-11) % Eos % (Auto) 4.2 H (0-4) % Baso % (Auto) 0.3 (0-2) % Lymph # (Auto) 0.9 L (1.2-4.9) X10*3/uL Moore # (Auto) 0.5 (0.1-1.2) X10*3/uL Eos # (Auto) 0.4 (0.0-0.4) X10*3/uL Baso # (Auto) 0.0 (0.0-0.2) X10*3/uL Abs Immat Gran (auto) 0.05 H (0.00-0.03) X10*3/uL Absolute Neuts (auto) 7.0 (2.0-8.3) x10*3/uL Absolute Nucleated RBC 0.000 (0.0-0.012) X10*3/uL Nucleated RBC % (auto) 0.0 (0.0-0.2) /100WBC VBG pH (7.32-7.43) VBG pCO2 mmHg VBG pO2 mmHg VBG HCO3 (22-26) mmol/L VBG O2 Saturation % VBG Base Excess mmol/L Sodium 136 (135-145) mmol/L Potassium 4.2 (3.3-5.1) mmol/L Chloride 108 (96-108) mmol/L Carbon Dioxide 17 L (22-29) mmol/L Anion Gap 15 (12-20) BUN 67 H (9-16) mg/dL Creatinine 6.17 H* (0.5-1.4) mg/dL Estim Creat Clear Calc 12.1 Estimated GFR 7 POC Glucose (60-115) mg/dL Random Glucose 469 H* (60-115) mg/dL Calcium 7.6 L (8.4-10.2) mg/dL B-Natriuretic Peptide 39 (<100) pg/mL Urine Color Urine Appearance Urine pH (5.0-9.0) Ur Specific [place] (1.005-1.025) Urine Protein (Neg-Trace) mg/dL Urine Glucose (UA) (Negative) mg/dL Urine Ketones (Negative) mg/dL Urine Blood (Negative) Urine Nitrite (Negative) Ur Leukocyte Esterase (Negative) Urine RBC (0-2) /HPF Urine WBC (0-5) /HPF Ur Squamous Epith Cells (0-2) /HPF Urine Bacteria (None Seen) Hyaline Casts (0-2) /LPF Acetone, Qual (Negative) 01/22/22 01/22/22 01/22/22 Range/Units 19:07 21:10 21:10 WBC (4.8-10.8) X10*3/uL RBC (4.20-5.50) X10*6/uL Hgb (12.0-16.0) g/dl Hct (37.0-47.0) % MCV (80.0-98.0) fL MCH (27.0-33.0) pg MCHC (31.0-35.0) g/dl RDW (11.0-16.0) % Plt Count (160-400) X10*3/uL MPV (9.4-12.3) fL Immature Gran % (Auto) (0.0-0.4) % Neut % (Auto) (45-73) % Lymph % (Auto) (20-40) % Moore % (Auto) (2-11) % Eos % (Auto) (0-4) % Baso % (Auto) (0-2) % Lymph # (Auto) (1.2-4.9) X10*3/uL Moore # (Auto) (0.1-1.2) X10*3/uL Eos # (Auto) (0.0-0.4) X10*3/uL Baso # (Auto) (0.0-0.2) X10*3/uL Abs Immat Gran (auto) (0.00-0.03) X10*3/uL Absolute Neuts (auto) (2.0-8.3) x10*3/uL Absolute Nucleated RBC (0.0-0.012) X10*3/uL Nucleated RBC % (auto) (0.0-0.2) /100WBC VBG pH 7.23 L (7.32-7.43) VBG pCO2 37 mmHg VBG pO2 54 mmHg VBG HCO3 15 L (22-26) mmol/L VBG O2 Saturation 83.0 % VBG Base Excess -10.7 mmol/L Sodium (135-145) mmol/L Potassium (3.3-5.1) mmol/L Chloride (96-108) mmol/L Carbon Dioxide (22-29) mmol/L Anion Gap (12-20) BUN (9-16) mg/dL Creatinine (0.5-1.4) mg/dL Estim Creat Clear Calc Estimated GFR POC Glucose (60-115) mg/dL Random Glucose (60-115) mg/dL Calcium (8.4-10.2) mg/dL B-Natriuretic Peptide (<100) pg/mL Urine Color Yellow Urine Appearance Clear Urine pH 6.5 (5.0-9.0) Ur Specific [place] 1.015 (1.005-1.025) Urine Protein 300 (3+) H (Neg-Trace) mg/dL Urine Glucose (UA) >=1000 H (Negative) mg/dL Urine Ketones Negative (Negative) mg/dL Urine Blood Small (1+) H (Negative) Urine Nitrite Negative (Negative) Ur Leukocyte Esterase Negative (Negative) Urine RBC 3-5 H (0-2) /HPF Urine WBC 0-5 (0-5) /HPF Ur Squamous Epith Cells 0-2 (0-2) /HPF Urine Bacteria None Seen (None Seen) Hyaline Casts 0-2 (0-2) /LPF Acetone, Qual Negative (Negative) 01/22/22 Range/Units 22:07 WBC (4.8-10.8) X10*3/uL RBC (4.20-5.50) X10*6/uL Hgb (12.0-16.0) g/dl Hct (37.0-47.0) % MCV (80.0-98.0) fL MCH (27.0-33.0) pg MCHC (31.0-35.0) g/dl RDW (11.0-16.0) % Plt Count (160-400) X10*3/uL MPV (9.4-12.3) fL Immature Gran % (Auto) (0.0-0.4) % Neut % (Auto) (45-73) % Lymph % (Auto) (20-40) % Moore % (Auto) (2-11) % Eos % (Auto) (0-4) % Baso % (Auto) (0-2) % Lymph # (Auto) (1.2-4.9) X10*3/uL Moore # (Auto) (0.1-1.2) X10*3/uL Eos # (Auto) (0.0-0.4) X10*3/uL Baso # (Auto) (0.0-0.2) X10*3/uL Abs Immat Gran (auto) (0.00-0.03) X10*3/uL Absolute Neuts (auto) (2.0-8.3) x10*3/uL Absolute Nucleated RBC (0.0-0.012) X10*3/uL Nucleated RBC % (auto) (0.0-0.2) /100WBC VBG pH (7.32-7.43) VBG pCO2 mmHg VBG pO2 mmHg VBG HCO3 (22-26) mmol/L VBG O2 Saturation % VBG Base Excess mmol/L Sodium (135-145) mmol/L Potassium (3.3-5.1) mmol/L Chloride (96-108) mmol/L Carbon Dioxide (22-29) mmol/L Anion Gap (12-20) BUN (9-16) mg/dL Creatinine (0.5-1.4) mg/dL Estim Creat Clear Calc Estimated GFR POC Glucose 301 H (60-115) mg/dL Random Glucose (60-115) mg/dL Calcium (8.4-10.2) mg/dL B-Natriuretic Peptide (<100) pg/mL Urine Color Urine Appearance Urine pH (5.0-9.0) Ur Specific [place] (1.005-1.025) Urine Protein (Neg-Trace) mg/dL Urine Glucose (UA) (Negative) mg/dL Urine Ketones (Negative) mg/dL Urine Blood (Negative) Urine Nitrite (Negative) Ur Leukocyte Esterase (Negative) Urine RBC (0-2) /HPF Urine WBC (0-5) /HPF Ur Squamous Epith Cells (0-2) /HPF Urine Bacteria (None Seen) Hyaline Casts (0-2) /LPF Acetone, Qual (Negative) Critical Care Time Critical Care Time Critical Care Time: No Discharge Plan Discharge Clinical Impression: Hypertensive urgency, Right leg swelling, Anemia, Hyperglycemia due to diabetes mellitus, Acute renal failure (ARF), Metabolic acidosis Patient Disposition: Admitted As Inpatient Prescriptions: No Action atorvastatin 80 mg tablet 1 tab PO DAILY carvedilol 12.5 mg tablet 1 tab PO BID loperamide 2 mg capsule 1 cap PO Q6H PRN (Reason: Diarrhea) cyanocobalamin (vitamin B-12) [Vitamin B-12] 1,000 mcg tablet 1 tab PO DAILY topiramate 25 mg tablet 1 tab PO DAILY famotidine 20 mg tablet 1 tab PO DAILY pantoprazole 40 mg tablet,delayed release (DR/EC) 1 tab PO DAILY aspirin 81 mg tablet,chewable 1 tab PO DAILY gabapentin 100 mg capsule 1 cap PO TID insulin lispro 100 unit/mL insulin pen See Protocol subcut TIDAC Protocol: Insulin Correction Scale Less than or equal to 110 ---- Give (units): 0 111 to 150 Give (units): 0 151 to 200 Give (units): 2 201 to 250 Give (units): 4 251 to 300 Give (units): 6 301 to 350 Give (units): 8 Greater than 350 Give (units): 10 Call MD if Blood Glucose > : 350 Rx Instructions: sliding scale lactulose 10 gram/15 mL solution 15 ml PO DAILY PRN (Reason: Constipation) cholecalciferol (vitamin D3) [Vitamin D3] 50 mcg (2,000 unit) capsule 1 cap PO DAILY Ozempic 1 mg/dose (2 mg/1.5 mL) pen injector 1 mg SUBCUT SA@0900 clindamycin phosphate 1 % gel 1 applic topical BID hydrocortisone 2.5 % ointment 1 appl topical BID betamethasone dipropionate 0.05 % ointment 1 appl topical BID calcipotriene 0.005 % ointment 1 applic topical BID amlodipine 5 mg Tablet 5 mg PO DAILY 30 Days Qty: 30 0RF Protocol: Hold for SBP< HOLD for SBP < : 90 levetiracetam 500 mg tablet 500 mg PO DAILY Qty: 30 0RF
[2022-01-22] MEDS: 0.9 % Sodium Chloride 1,000 ML 999 ML IV ×2 (21:13→21:14)
[2022-01-22 21:14] LABS: Venous Blood Gas Refer to POC result
[2022-01-22 21:17] VITALS: BP 207/91; PULSE 84; RESP 18; TEMP 36.7; O2SAT 100
[2022-01-22 21:23] LABS: VBG pO2 54 mmHg
[2022-01-22 21:24] LABS: VBG Base Excess -10.7 mmol/L; VBG HCO3 15 mmol/L (22-26); VBG pCO2 37 mmHg; VBG pH 7.23 (7.32-7.43)
[2022-01-22 21:38] LABS: Acetone, serum QL Negative (Negative)
[2022-01-22 22:14] LABS: Glucose, Whole Blood 301 mg/dL (60-115)
[2022-01-22] MEDS: amLODIPine Besylate 5 MG TABLET PO (22:15)
[2022-01-22] MEDS: Insulin Lispro 100 UNIT/ML 3 ML VIAL SUBCUT (22:15)
[2022-01-22 23:26] VITALS: BP 214/91; PULSE 86; RESP 18; TEMP 37.1; O2SAT 100
[2022-01-22] MEDS: Labetalol HCL 100 MG/20 ML VIAL IVPUSH (23:40)
[2022-01-22 23:47] VITALS: BP 193/84; PULSE 79; RESP 17; O2SAT 99
--- NOTE | 2022-01-22 23:54 | ECG_ITS ---
Test Reason : HTN Blood Pressure : / mmHG Vent. Rate : 082 BPM Atrial Rate : 082 BPM P-R Int : 158 ms QRS Dur : 096 ms QT Int : 430 ms P-R-T Axes : 052 027 072 degrees QTc Int : 502 ms Normal sinus rhythm Nonspecific T wave abnormality Prolonged QT RSR' or QR pattern in V1 suggests right ventricular conduction delay Nonspecific ST abnormality Inferior leads Abnormal ECG When compared with ECG of 31-DEC-2021 08:27, Nonspecific T wave abnormality, worse in Lateral leads QT has lengthened Referred By: Lizbeth Kellogg Electronically Signed By:XAVI SHERIDAN MD
[2022-01-22 23:58] LABS: Alanine Aminotransferase 10 U/L (0-31); Albumin Level 2.6 g/dL (3.5-5.0); Alkaline Phosphatase 131 U/L (39-117); Anion Gap 13 (12-20); Aspartate Amino Transferase 11 U/L (5-31); Bilirubin Total 0.2 mg/dL (0.0-1.0); Blood Urea Nitrogen 60 mg/dL (9-16); Calcium 6.6 mg/dL (8.4-10.2); Carbon Dioxide 14 mmol/L (22-29); Chloride 118 mmol/L (96-108); Creatinine Clr Calc Pharmacy 13.9; Estimated Glomerular Filt Rate 8; Glucose Random 256 mg/dL (60-115); Potassium 3.5 mmol/L (3.3-5.1); Sodium 141 mmol/L (135-145); Total Protein 5.2 g/dL (6.5-8.0)
[2022-01-23] VITALS (13 sets, daily range): BP systolic 113–188; BP diastolic 56–96; PULSE 71–93; RESP 11–20; TEMP 35.9–36.8; O2SAT 95–100; BMI 45.5
[2022-01-23] MEDS: Labetalol HCL 100 MG/20 ML VIAL IVPUSH (00:06)
[2022-01-23] MEDS: Morphine Sulfate 4 MG/ML CARTRIDGE IVPUSH (00:47)
[2022-01-23 00:57] LABS: Troponin-I High Sensitivity 7.6 ng/L (<3.5-17.0)
--- NOTE | 2022-01-23 01:43 | PM.IMHP ---
History of Present Illness Date of Service: 01/23/22 Chief Complaint: abd pain 56-year-old female with past medical history of diabetes, HLD, chronic anemia, HTN, obesity, sleep apnea not currently on CPAP machine home a besides hospital with multiple complaints. She reports that she came to the hospital due to constant right upper quadrant abdominal pain as well as back lower pain. Patient reports S she saw her doctor the day prior, had labs done, which showed abduct kidney function, she was supposed to also have injection in her lower back. The pain was so severe that she decided to come to the ED. she is also complaining of right flank pain radiating to the wound, reports urinary frequency, patient is also complaining of nausea, no vomiting, she also complaining of headache. She reports compliance with her antihypertensives. She also has complaints of midsternal chest pain as well as palpitations. Reports chest pain as heavy, constant, nonradiating. Patient otherwise denies any change in vision, no shortness of breath, no diarrhea constipation, lower extremity edema although reports balance is off, and has pain in her feet bilaterally. On arrival to the ED patient's blood pressure is recorded as 228/95 Labs are significant for WBC count of 8.8, hemoglobin of 7.7 which is around baseline pH of 7.23, pCO2 of 37, bicarb of 17, BUN of 67, creatinine of 6.17, glucose of 469, calcium of 7.6, UA positive for small blood and RBC Abdomen pelvic CT shows small obstructing right renal stone with no left renal stone hydronephrosis, venous duplex shows no DVT of lower extremity Troponin Review of Systems Review of Systems: Yes all other systems are reviewed and are negative [facility] Medical History (Updated 01/23/22 @ 07:04 by Serge López MD) Diabetes Hyperlipidemia Hypertension Lower back pain Partial deafness Sleep apnea Family History Other No family history of coronary artery disease Surgical History History of carpal tunnel surgery Previous back surgery Social History Household Members: Spouse Housing: House Do you presently have visiting nurse or other home services: No Alcohol intake: never Patient Tobacco Use Status: Never used Tobacco Second Hand Smoke Exposure: No Advance Directives: No Advance Directives Information Provided: No service: No Current occupational status: disabled Meds Allergies Allergy/AdvReac Type Severity Reaction Status Date / Time cortex Eucommiae Allergy Severe ANAPHYLAXIS Verified 12/23/21 21:10 [CORTEX EUCOMMIAE] egg [EGG] Allergy Severe VOMITING Verified 12/23/21 21:10 latex [LATEX] Allergy Severe HIVES Verified 12/23/21 21:10 Penicillins [PENICILLINS] Allergy Severe HIVES Verified 12/23/21 21:10 vancomycin [VANCOMYCIN] Allergy Severe HIVES Verified 12/23/21 21:10 Active Medications: Current Medications Pharmacy Consult (Consult Rx Perform Med Rec) 1 each MISCELLANE ONCE PRN PRN Reason: Consult order Home Medications Medication Instructions Recorded Confirmed Last Taken Type aspirin 81 mg chewable tablet 1 tab PO DAILY 12/24/21 12/24/21 12/23/21 08:00 History atorvastatin 80 mg tablet 1 tab PO DAILY 12/24/21 12/24/21 12/23/21 08:00 History betamethasone dipropionate 0.05 % 1 appl topical BID 12/24/21 12/24/21 Unknown History topical ointment calcipotriene 0.005 % topical 1 applic topical BID 12/24/21 12/24/21 Unknown History ointment carvedilol 12.5 mg tablet 1 tab PO BID 12/24/21 12/24/21 12/23/21 08:00 History cholecalciferol (vitamin D3) 50 1 cap PO DAILY 12/24/21 12/24/21 12/23/21 08:00 History mcg (2,000 unit) capsule (Vitamin D3) clindamycin phosphate 1 % topical 1 applic topical BID 12/24/21 12/24/21 Unknown History gel cyanocobalamin (vitamin B-12) 1 tab PO DAILY 12/24/21 12/24/21 12/23/21 08:00 History 1,000 mcg tablet (Vitamin B-12) famotidine 20 mg tablet 1 tab PO DAILY 12/24/21 12/24/21 12/22/21 21:00 History gabapentin 100 mg capsule 1 cap PO TID 12/24/21 12/24/21 12/23/21 12:00 History hydrocortisone 2.5 % topical 1 appl topical BID 12/24/21 12/24/21 Unknown History ointment insulin lispro 100 unit/mL See Protocol subcut TIDAC 12/24/21 12/24/21 Unknown History subcutaneous pen lactulose 10 gram/15 mL oral 15 ml PO DAILY PRN Constipation 12/24/21 12/24/21 Unknown History solution loperamide 2 mg capsule 1 cap PO Q6H PRN Diarrhea 12/24/21 12/24/21 12/23/21 08:00 History pantoprazole 40 mg tablet,delayed 1 tab PO DAILY 12/24/21 12/24/21 12/23/21 08:00 History release semaglutide 1 mg/dose (2 mg/1.5 1 mg subcut SA@0900 12/24/21 12/24/21 Unknown History mL) subcutaneous pen injector (Ozempic) topiramate 25 mg tablet 1 tab PO DAILY 12/24/21 12/24/21 12/22/21 21:00 History Physical Exam Vital Signs and Narrative: Vital Signs: Last Vital Signs Temp 98.7 F 01/22/22 23:26 Pulse 93 01/23/22 01:33 Resp 17 01/23/22 01:33 BP 186/82 H 01/23/22 01:33 Pulse Ox 99 01/23/22 01:33 O2 Del Method 01/23/22 01:33 BMI result Body Mass Index 45.5 Const: General: cooperative and no acute distress Orientation/consciousness: patient oriented x3 Eyes: General: appearance normal, both eyes and all related structures Resp: Effort & Inspection: normal respiratory effort Auscultation: clear to auscultation bilaterally Cardio: Rate: regular rate Rhythm: regular rhythm GI: Other: right upper quadrant pain Palpation (GI): Soft to palpation Auscultation: normal bowel sounds : Other: left CVA tenderness Skin: General skin exam: no rashes or lesions noted Neuro: General: patient oriented x3 Cognition (Neuro): normal cognition Extrem: General: Yes normal to inspection and Yes no pedal edema Results Labs CBC and Chem 7: 01/22/22 19:06 01/22/22 23:30 Labs: Laboratory Results - last 24 hr 01/22/22 01/22/22 01/22/22 19:06 19:06 19:06 MCV 81.3 MCH 27.2 MCHC 33.5 RDW 16.1 H Plt Count 153 L D MPV 9.5 Immature Gran % (Auto) 0.6 H Neut % (Auto) 79.6 H Lymph % (Auto) 9.9 L [place] % (Auto) 5.4 Eos % (Auto) 4.2 H Baso % (Auto) 0.3 Lymph # (Auto) 0.9 L [place] # (Auto) 0.5 Eos # (Auto) 0.4 Baso # (Auto) 0.0 Abs Immat Gran (auto) 0.05 H Absolute Neuts (auto) 7.0 Absolute Nucleated RBC 0.000 Nucleated RBC % (auto) 0.0 VBG pH VBG pCO2 VBG pO2 VBG HCO3 VBG O2 Saturation VBG Base Excess Anion Gap 15 Estim Creat Clear Calc 12.1 Estimated GFR 7 POC Glucose Random Glucose 469 H* Calcium 7.6 L Total Bilirubin AST ALT Alkaline Phosphatase Troponin I High Sens 7.6 D B-Natriuretic Peptide 39 Total Protein Albumin Urine Color Urine Appearance Urine pH Ur Specific [place] Urine Protein Urine Glucose (UA) Urine Ketones Urine Blood Urine Nitrite Ur Leukocyte Esterase Urine RBC Urine WBC Ur Squamous Epith Cells Urine Bacteria Hyaline Casts Acetone, Qual 01/22/22 01/22/22 01/22/22 19:07 21:10 21:10 MCV MCH MCHC RDW Plt Count MPV Immature Gran % (Auto) Neut % (Auto) Lymph % (Auto) [place] % (Auto) Eos % (Auto) Baso % (Auto) Lymph # (Auto) [place] # (Auto) Eos # (Auto) Baso # (Auto) Abs Immat Gran (auto) Absolute Neuts (auto) Absolute Nucleated RBC Nucleated RBC % (auto) VBG pH 7.23 L VBG pCO2 37 VBG pO2 54 VBG HCO3 15 L VBG O2 Saturation 83.0 VBG Base Excess -10.7 Anion Gap Estim Creat Clear Calc Estimated GFR POC Glucose Random Glucose Calcium Total Bilirubin AST ALT Alkaline Phosphatase Troponin I High Sens B-Natriuretic Peptide Total Protein Albumin Urine Color Yellow Urine Appearance Clear Urine pH 6.5 Ur Specific [place] 1.015 Urine Protein 300 (3+) H Urine Glucose (UA) >=1000 H Urine Ketones Negative Urine Blood Small (1+) H Urine Nitrite Negative Ur Leukocyte Esterase Negative Urine RBC 3-5 H Urine WBC 0-5 Ur Squamous Epith Cells 0-2 Urine Bacteria None Seen Hyaline Casts 0-2 Acetone, Qual Negative 01/22/22 01/22/22 22:07 23:30 MCV MCH MCHC RDW Plt Count MPV Immature Gran % (Auto) Neut % (Auto) Lymph % (Auto) [place] % (Auto) Eos % (Auto) Baso % (Auto) Lymph # (Auto) [place] # (Auto) Eos # (Auto) Baso # (Auto) Abs Immat Gran (auto) Absolute Neuts (auto) Absolute Nucleated RBC Nucleated RBC % (auto) VBG pH VBG pCO2 VBG pO2 VBG HCO3 VBG O2 Saturation VBG Base Excess Anion Gap 13 Estim Creat Clear Calc 13.9 Estimated GFR 8 POC Glucose 301 H Random Glucose 256 H Calcium 6.6 L D Total Bilirubin 0.2 AST 11 ALT 10 Alkaline Phosphatase 131 H Troponin I High Sens B-Natriuretic Peptide Total Protein 5.2 L D Albumin 2.6 L Urine Color Urine Appearance Urine pH Ur Specific [place] Urine Protein Urine Glucose (UA) Urine Ketones Urine Blood Urine Nitrite Ur Leukocyte Esterase Urine RBC Urine WBC Ur Squamous Epith Cells Urine Bacteria Hyaline Casts Acetone, Qual Imaging Radiologist's Impressions: Impressions Abdomen/Pelvis CT 01/22/22 21:37 IMPRESSION: Small nonobstructing right renal stone. No left renal stone or hydronephrosis.. Fleischner guidelines were followed. Venous Duplex 01/22/22 22:10 IMPRESSION: No DVT demonstrated in the right lower extremity with the caveat that the right peroneal vein was not visualized. Assessment and Plan (1) Acute kidney injury superimposed on CKD: Status: Acute (2) Abdominal pain: Status: Acute (3) Hypocalcemia: Status: Acute (4) Hypertensive urgency: Status: Acute (5) Metabolic acidosis: Status: Acute (6) Chronic anemia: Status: Acute Plan 56-year-old female with past medical history of CKD presents to the hospital with complaints of abdominal pain # acute kidney injury superimposed on CKD - CT showed no obstructing stone, he TI - started on IV fluids - nephrology consulted - follow BMP # abdominal pain - likely secondary to nonobstructing stone - no UTI, no acute abdominal abnormality seen on CT - supportive measure # hypocalcemia - unclear etiology - given calcium gluconate - follow calcium low # hypertensive urgency - patient reports compliance with her medication - has EMIL, troponin negative - blood pressure better controlled, resume home medications, hydralazine p.r.n. # metabolic acidosis - likely secondary to kidney failure - follow bicarb level # chronic anemia - stable - will obtain B12, folic acid, ferritin - follow CBC # diabetes - low-dose sliding scale insulin - continue home insulin - diabetic diet DVT prophylaxis: Heparin subQ Pt will require a minimum 2 night hospital stay for IV fluids, management of EMIL Quality Stroke Does the patient have a stroke diagnosis?: No VTE Prior VTE?: No VTE Risk Level:: Medical - moderate - high VTE Device Contraindication: Treatment Not Indicated VTE Drug Contraindication: N/A - Med Ordered
[2022-01-23] MEDS: cefTRIAXone sodium 1 GM in 0.9 % Sodium Chloride 50 ML IV (03:02)
[2022-01-23] MEDS: Heparin Sodium,Porcine 5,000 UNIT/ML VIAL 5000 UNIT SUBCUT ×3 (03:02→17:55)
[2022-01-23] MEDS: Lactated Ringers 1,000 ML 100 ML IVCONT ×2 (03:08→12:51)
[2022-01-23 06:57] LABS: MANUAL DIFF FLAG NO
[2022-01-23 07:15] LABS: Basophils Percent Auto 0.3 % (0-2); Eosinophils Absolute Auto 0.3 X10*3/uL (0.0-0.4); Eosinophils Percent Auto 3.5 % (0-4); Hematocrit 22.1 % (37.0-47.0); Hemoglobin 7.3 g/dl (12.0-16.0); Imm Gran Abs Auto 0.05 X10*3/uL (0.00-0.03); Imm Gran Pct Auto 0.5 % (0.0-0.4); Lymphocytes Absolute Auto 1.2 X10*3/uL (1.2-4.9); Lymphocytes Percent Auto 12.8 % (20-40); Mean Corpuscular Hemoglobin 26.8 pg (27.0-33.0); Mean Corpuscular Volume 81.3 fL (80.0-98.0); Monocytes Absolute Auto 0.5 X10*3/uL (0.1-1.2); Monocytes Percent Auto 5.5 % (2-11); Neutrophils Absolute Auto 7.4 x10*3/uL (2.0-8.3); Neutrophils Percent Auto 77.4 % (45-73); Platelet Count 150 X10*3/uL (160-400); Red Blood Count 2.72 X10*6/uL (4.20-5.50); White Blood Count 9.6 X10*3/uL (4.8-10.8)
[2022-01-23] MEDS: oxyCODONE HCl Immed Release 5 MG TABLET PO ×3 (07:27→20:14)
[2022-01-23] MEDS: Calcium Gluconate/NaCl,Iso-Osm 2 GM/100 ML PLAST..BAG IV (07:29)
[2022-01-23 07:37] LABS: Anion Gap 16 (12-20); Blood Urea Nitrogen 64 mg/dL (9-16); Calcium 7.4 mg/dL (8.4-10.2); Carbon Dioxide 15 mmol/L (22-29); Chloride 115 mmol/L (96-108); Creatinine Clr Calc Pharmacy 13.3; Estimated Glomerular Filt Rate 8; Glucose Random 172 mg/dL (60-115); Potassium 3.7 mmol/L (3.3-5.1); Sodium 142 mmol/L (135-145)
--- NOTE | 2022-01-23 07:43 | PM.EVENT ---
Event Note Date of Service: 01/23/22 Event Note: day hospitalist update S has swollen legs c/o back pain which is chronic doesn't recall kidney biopsy but had one on 12/29/21: Kidney, left lower pole, core biopsy (diagnosis based on LM/IF/EM): ??- Advanced Diabetic Nephropathy, Tervaert class IV. ??- Acute on chronic interstitial nephritis with acute tubular injury. ??- Global glomerulosclerosis of ?60% of total glomeruli. ??- Interstitial fibrosis and tubular atrophy, severe ( 70%). ??- Arteries with moderate sclerosis. ??- Arterioles with severe hyaline sclerosis involving afferent and efferent arterioles. Comment: The patient's prior renal biopsy ([id number]) is reviewed for comparison. The current biopsy shows progression of chronic tubulointerstitial disease, while percent of global glomerulosclerosis appears unchanged. ?The findings are diagnostic of advanced diabetic nephropathy. ?An immune-complex mediated GN is not identified. ?Presence of mixed interstitial inflammatory infiltrates, while part of DN, also raises the differential of a drug-induced superimposed toxic effect. Clinical correlation advised. O VS- BP 157/79, P 79, R 11, T 96.6, Sao2 99on RA gen- NAD lungs -CTAB CV- RRR no m/r/g abd- soft/NT, obese ext- 2+ bilateral lower extremity edema neuro- no focal findings psych- appropriate affect Laboratory Results - last 24 hr 01/22/22 01/22/22 01/22/22 19:06 19:06 19:06 WBC 8.8 RBC 2.83 L Hgb 7.7 L Hct 23.0 L MCV 81.3 MCH 27.2 MCHC 33.5 RDW 16.1 H Plt Count 153 L D MPV 9.5 Immature Gran % (Auto) 0.6 H Neut % (Auto) 79.6 H Lymph % (Auto) 9.9 L [place] % (Auto) 5.4 Eos % (Auto) 4.2 H Baso % (Auto) 0.3 Lymph # (Auto) 0.9 L [place] # (Auto) 0.5 Eos # (Auto) 0.4 Baso # (Auto) 0.0 Abs Immat Gran (auto) 0.05 H Absolute Neuts (auto) 7.0 Absolute Nucleated RBC 0.000 Nucleated RBC % (auto) 0.0 Absolute Retic Percent Retic Immature Retic Fraction Retic Hgb Equivalent VBG pH VBG pCO2 VBG pO2 VBG HCO3 VBG O2 Saturation VBG Base Excess Sodium 136 Potassium 4.2 Chloride 108 Carbon Dioxide 17 L Anion Gap 15 BUN 67 H Creatinine 6.17 H* Estim Creat Clear Calc 12.1 Estimated GFR 7 POC Glucose Random Glucose 469 H* Estimat Average Glucose Hemoglobin A1c % Calcium 7.6 L Iron TIBC % Saturation Unsat Iron Binding Ferritin Total Bilirubin AST ALT Alkaline Phosphatase Lactate Dehydrogenase Troponin I High Sens 7.6 D B-Natriuretic Peptide 39 Total Protein Albumin Vitamin B12 Folate Urine Color Urine Appearance Urine pH Ur Specific [place] Urine Protein Urine Glucose (UA) Urine Ketones Urine Blood Urine Nitrite Ur Leukocyte Esterase Urine RBC Urine WBC Ur Squamous Epith Cells Urine Bacteria Hyaline Casts Acetone, Qual COVID-19 (JODY) COVIDCold Crate 01/22/22 01/22/22 01/22/22 19:07 21:10 21:10 WBC RBC Hgb Hct MCV MCH MCHC RDW Plt Count MPV Immature Gran % (Auto) Neut % (Auto) Lymph % (Auto) [place] % (Auto) Eos % (Auto) Baso % (Auto) Lymph # (Auto) [place] # (Auto) Eos # (Auto) Baso # (Auto) Abs Immat Gran (auto) Absolute Neuts (auto) Absolute Nucleated RBC Nucleated RBC % (auto) Absolute Retic Percent Retic Immature Retic Fraction Retic Hgb Equivalent VBG pH 7.23 L VBG pCO2 37 VBG pO2 54 VBG HCO3 15 L VBG O2 Saturation 83.0 VBG Base Excess -10.7 Sodium Potassium Chloride Carbon Dioxide Anion Gap BUN Creatinine Estim Creat Clear Calc Estimated GFR POC Glucose Random Glucose Estimat Average Glucose Hemoglobin A1c % Calcium Iron TIBC % Saturation Unsat Iron Binding Ferritin Total Bilirubin AST ALT Alkaline Phosphatase Lactate Dehydrogenase Troponin I High Sens B-Natriuretic Peptide Total Protein Albumin Vitamin B12 Folate Urine Color Yellow Urine Appearance Clear Urine pH 6.5 Ur Specific [place] 1.015 Urine Protein 300 (3+) H Urine Glucose (UA) >=1000 H Urine Ketones Negative Urine Blood Small (1+) H Urine Nitrite Negative Ur Leukocyte Esterase Negative Urine RBC 3-5 H Urine WBC 0-5 Ur Squamous Epith Cells 0-2 Urine Bacteria None Seen Hyaline Casts 0-2 Acetone, Qual Negative COVID-19 (JODY) COVIDCold Crate 01/22/22 01/22/22 01/23/22 22:07 23:30 05:52 WBC 9.6 RBC 2.72 L Hgb 7.3 L Hct 22.1 L MCV 81.3 MCH 26.8 L MCHC 33.0 RDW 16.0 Plt Count 150 L MPV 10.0 Immature Gran % (Auto) 0.5 H Neut % (Auto) 77.4 H Lymph % (Auto) 12.8 L [place] % (Auto) 5.5 Eos % (Auto) 3.5 Baso % (Auto) 0.3 Lymph # (Auto) 1.2 [place] # (Auto) 0.5 Eos # (Auto) 0.3 Baso # (Auto) 0.0 Abs Immat Gran (auto) 0.05 H Absolute Neuts (auto) 7.4 Absolute Nucleated RBC 0.000 Nucleated RBC % (auto) 0.0 Absolute Retic 0.128 H Percent Retic 4.7 H Immature Retic Fraction 11.4 Retic Hgb Equivalent 33.3 VBG pH VBG pCO2 VBG pO2 VBG HCO3 VBG O2 Saturation VBG Base Excess Sodium 141 Potassium 3.5 Chloride 118 H Carbon Dioxide 14 L Anion Gap 13 BUN 60 H Creatinine 5.36 H* Estim Creat Clear Calc 13.9 Estimated GFR 8 POC Glucose 301 H Random Glucose 256 H Estimat Average Glucose Hemoglobin A1c % Calcium 6.6 L D Iron TIBC % Saturation Unsat Iron Binding Ferritin Total Bilirubin 0.2 AST 11 ALT 10 Alkaline Phosphatase 131 H Lactate Dehydrogenase Troponin I High Sens B-Natriuretic Peptide Total Protein 5.2 L D Albumin 2.6 L Vitamin B12 Folate Urine Color Urine Appearance Urine pH Ur Specific [place] Urine Protein Urine Glucose (UA) Urine Ketones Urine Blood Urine Nitrite Ur Leukocyte Esterase Urine RBC Urine WBC Ur Squamous Epith Cells Urine Bacteria Hyaline Casts Acetone, Qual COVID-19 (JODY) COVID-19 Clin Com 01/23/22 01/23/22 01/23/22 05:52 05:52 07:35 WBC RBC Hgb Hct MCV MCH MCHC RDW Plt Count MPV Immature Gran % (Auto) Neut % (Auto) Lymph % (Auto) [place] % (Auto) Eos % (Auto) Baso % (Auto) Lymph # (Auto) [place] # (Auto) Eos # (Auto) Baso # (Auto) Abs Immat Gran (auto) Absolute Neuts (auto) Absolute Nucleated RBC Nucleated RBC % (auto) Absolute Retic Percent Retic Immature Retic Fraction Retic Hgb Equivalent VBG pH VBG pCO2 VBG pO2 VBG HCO3 VBG O2 Saturation VBG Base Excess Sodium 142 Potassium 3.7 Chloride 115 H Carbon Dioxide 15 L Anion Gap 16 BUN 64 H Creatinine 5.58 H* Estim Creat Clear Calc 13.3 Estimated GFR 8 POC Glucose Random Glucose 172 H Estimat Average Glucose 203 Hemoglobin A1c % 8.7 Calcium 7.4 L D Iron 80 TIBC 183 L % Saturation 44 Unsat Iron Binding 103 Ferritin Total Bilirubin AST ALT Alkaline Phosphatase Lactate Dehydrogenase 402 H Troponin I High Sens B-Natriuretic Peptide Total Protein Albumin Vitamin B12 Folate Urine Color Urine Appearance Urine pH Ur Specific [place] Urine Protein Urine Glucose (UA) Urine Ketones Urine Blood Urine Nitrite Ur Leukocyte Esterase Urine RBC Urine WBC Ur Squamous Epith Cells Urine Bacteria Hyaline Casts Acetone, Qual COVID-19 (JODY) Negative COVID-19 Clin Com See Note 01/23/22 01/23/22 01/23/22 08:00 08:00 11:32 WBC RBC Hgb Hct MCV MCH MCHC RDW Plt Count MPV Immature Gran % (Auto) Neut % (Auto) Lymph % (Auto) [place] % (Auto) Eos % (Auto) Baso % (Auto) Lymph # (Auto) [place] # (Auto) Eos # (Auto) Baso # (Auto) Abs Immat Gran (auto) Absolute Neuts (auto) Absolute Nucleated RBC Nucleated RBC % (auto) Absolute Retic Percent Retic Immature Retic Fraction Retic Hgb Equivalent VBG pH VBG pCO2 VBG pO2 VBG HCO3 VBG O2 Saturation VBG Base Excess Sodium Potassium Chloride Carbon Dioxide Anion Gap BUN Creatinine Estim Creat Clear Calc Estimated GFR POC Glucose 240 H Random Glucose Estimat Average Glucose Hemoglobin A1c % Calcium Iron TIBC % Saturation Unsat Iron Binding Ferritin 680 H Total Bilirubin AST ALT Alkaline Phosphatase Lactate Dehydrogenase Troponin I High Sens B-Natriuretic Peptide Total Protein Albumin Vitamin B12 1087 H Folate 6.2 Urine Color Urine Appearance Urine pH Ur Specific [place] Urine Protein Urine Glucose (UA) Urine Ketones Urine Blood Urine Nitrite Ur Leukocyte Esterase Urine RBC Urine WBC Ur Squamous Epith Cells Urine Bacteria Hyaline Casts Acetone, Qual COVID-19 (JODY) COVID-19 Clin Com d#1 56yo F with CKD5, biopsy-proven advanced DM neuropathy, uncontrlled HTN, DM2, anemia of CKD, sleep apnea not on CPAP # EMIL/CKD5 # metabolic acidosis - Nephro consulted, give torsemide 40 mg bid + monitor I/O - sodium bicarbonate supplementation # uncontrolled HTN - increase amlodipine + carvedilol; diuretic as above3 # anemia of CKD - epo per Nephro # hypoCa - improved s/p Ca gluconate; correct for hypoalbuminemia # sz disorder - conitnue levetiracetam + topiramate # HLD - statin # CAREY - CPAP at night # DM2, A1c 8.7 - continue correction-dose lispro # chronic back pain - oxycodone, gabapentin # morbid obesity - weight loss advised # VTE ppx: UFH In my clinical judgment, the patient requires continued hospitalization for the following reasons:EMIL
[2022-01-23 07:54] LABS: Immature Retic Fraction 11.4 % (3.0-15.9); Retic HGB Equivalent 33.3 pg (30.0-35.0); Reticulocyte Percent 4.7 % (0.5-1.8); Reticulocytes Absolute 0.128 X10*6/uL (0.026-0.095)
[2022-01-23 07:59] LABS: COVID-19 Test Negative (Negative); IDNOW Serial# 16C4AD1C
[2022-01-23 08:00] LABS: Iron 80 mcg/dL (30-160); Lactate Dehydrogenase 402 U/L (122-220); Percent Iron Saturation 44 % (15-50); Total Iron Binding Capacity 183 mcg/dL (228-428); Unsaturated Iron Binding 103 ug/dL
[2022-01-23 08:13] LABS: Estimated Average Glucose 203 mg/dL; Hemoglobin A1c % 8.7 %
[2022-01-23 09:21] LABS: Ferritin 680 ng/mL (10-250)
[2022-01-23 09:54] LABS: Folate 6.2 ng/mL (> or = 4.0); Vitamin B12 1087 pg/mL (200-900)
[2022-01-23] MEDS: Acetaminophen 325 MG TABLET 650 MG PO (12:20)
[2022-01-23] MEDS: Insulin Lispro 100 UNIT/ML 3 ML VIAL SUBCUT ×2 (12:45→20:15)
[2022-01-23] MEDS: Cholecalciferol (Vitamin D3) 25 MCG TABLET 50 MCG PO (12:45)
[2022-01-23] MEDS: Atorvastatin Calcium 80 MG TABLET PO (12:45)
[2022-01-23] MEDS: Famotidine 20 MG TABLET PO (12:45)
[2022-01-23] MEDS: Aspirin 81 MG TAB.CHEW PO (12:45)
[2022-01-23] MEDS: amLODIPine Besylate 5 MG TABLET PO (12:46)
[2022-01-23] MEDS: carvediloL 12.5 MG TABLET PO (12:47)
[2022-01-23] MEDS: Cyanocobalamin (Vitamin B-12) 1,000 MCG TABLET 1000 MCG PO (12:47)
--- NOTE | 2022-01-23 13:23 | PM.CNNEP ---
History of Present Illness Reason for Consult Consult date: 01/23/22 Reason for consult: EMIL on CKD Requesting physician: Gagandeep Connor Chief Complaint Chief complaint: Hypertensive emergency History of Present Illness Narrative: Ms. 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 On arrival to the ED patient's blood pressure is recorded as 228/95 Labs are significant for WBC count of 8.8, hemoglobin of 7.7 which is around baseline pH of 7.23, pCO2 of 37, bicarb of 17, BUN of 67, creatinine of 6.17, glucose of 469, calcium of 7.6, UA positive for small blood and RBC Abdomen pelvic CT shows small obstructing right renal stone with no left renal stone hydronephrosis, venous duplex shows no DVT of lower extremity On my assessment we had a long discussion about her CKD progression. We discussed her LE edema and HTN being related. We discussed her options for medical therapy, and if she were to not respond the risk for needing iHD. Review of Systems Constitutional: Reports anorexia and Reports fatigue Cardiovascular: Reports leg edema Endocrine: Reports fatigue PMFSH Past Medical History Medical History Diabetes Hyperlipidemia Hypertension Lower back pain Partial deafness Sleep apnea Family History Family History Other No family history of coronary artery disease Surgical History Surgical History History of carpal tunnel surgery Previous back surgery Social History Social History Household Members: Spouse Housing: House Do you presently have visiting nurse or other home services: No Alcohol intake: never Patient Tobacco Use Status: Never used Tobacco Second Hand Smoke Exposure: No Advance Directives: No Advance Directives Information Provided: No service: No Current occupational status: disabled Meds Allergies Allergy/AdvReac Type Severity Reaction Status Date / Time cortex Eucommiae Allergy Severe ANAPHYLAXIS Verified 12/23/21 21:10 [CORTEX EUCOMMIAE] egg [EGG] Allergy Severe VOMITING Verified 12/23/21 21:10 latex [LATEX] Allergy Severe HIVES Verified 12/23/21 21:10 Penicillins [PENICILLINS] Allergy Severe HIVES Verified 12/23/21 21:10 vancomycin [VANCOMYCIN] Allergy Severe HIVES Verified 12/23/21 21:10 Active Medications: Current Medications Acetaminophen (Acetaminophen 325 Mg Tablet) 650 mg PO Q6H PRN PRN Reason: Pain, Mild (Pain Scale 1-3) Last Admin: 01/23/22 12:20 Dose: 650 mg Amlodipine Besylate (Amlodipine Besylate 5 Mg Tablet) 5 mg PO DAILY [facility]; Protocol Last Admin: 01/23/22 12:46 Dose: 5 mg Aspirin (Aspirin 81 Mg Tab.Chew) 81 mg PO DAILY [facility] Last Admin: 01/23/22 12:45 Dose: 81 mg Atorvastatin Calcium (Atorvastatin Calcium 80 Mg Tablet) 80 mg PO DAILY [facility] Last Admin: 01/23/22 12:45 Dose: 80 mg Carvedilol (Carvedilol 12.5 Mg Tablet) 12.5 mg PO BID [facility]; Protocol Last Admin: 01/23/22 12:47 Dose: 12.5 mg Cyanocobalamin (Cyanocobalamin (Vitamin B-12) 1,000 Mcg Tablet) 1,000 mcg PO DAILY [facility] Last Admin: 01/23/22 12:47 Dose: 1,000 mcg Dextrose (Dextrose 50 % 25 Gm/50 Ml Syringe) 25 gm IVPUSH Q15M PRN; Protocol PRN Reason: per Hypoglycemia Standing Ord. Docusate Sodium (Docusate Sodium 100 Mg Capsule) 100 mg PO DAILY PRN PRN Reason: Constipation Famotidine (Famotidine 20 Mg Tablet) 20 mg PO DAILY [facility] Last Admin: 01/23/22 12:45 Dose: 20 mg Gabapentin (Gabapentin 100 Mg Capsule) 100 mg PO TID [facility] Glucose (Glucose Gel 15 Gm Gel..Gram.) 15 gm PO Q15M PRN; Protocol PRN Reason: per Hypoglycemia Standing Ord. Heparin Sodium (Porcine) (Heparin Sodium,Porcine 5,000 Unit/Ml Vial) 5,000 unit SUBCUT Q8H [facility] Last Admin: 01/23/22 09:10 Dose: 5,000 unit Hydralazine HCl (Hydralazine Hcl 20 Mg/Ml Vial) 5 mg IVPUSH Q4H PRN; Protocol PRN Reason: sb>180 Lactated Ringer's (Lr) 1,000 mls @ 100 mls/hr IVCONT .Q10H [facility] Last Admin: 01/23/22 12:51 Dose: 100 mls/hr Insulin Human Lispro (Insulin Lispro 100 Unit/Ml 3 Ml Vial) 0 unit SUBCUT QIDACHS [facility]; Protocol Last Admin: 01/23/22 12:45 Dose: 4 unit Lactulose (Lactulose 20 Gm/30 Ml Solution) 10 gm PO DAILY PRN PRN Reason: Constipation Levetiracetam (Levetiracetam 500 Mg Tablet) 500 mg PO DAILY [facility] Non-Formulary Medication (Hydrocortisone) 1 appl TOPICAL BID PRN PRN Reason: Skin Irritation Non-Formulary Medication (Pantoprazole) 1 tab PO DAILY [facility] Ondansetron HCl (Ondansetron Hcl 4 Mg/2 Ml Vial) 4 mg IVPUSH Q8H PRN PRN Reason: Nausea and Vomiting Oxycodone HCl (Oxycodone Hcl Immed Release 5 Mg Tablet) 5 mg PO Q6H PRN PRN Reason: Pain, Severe (Pain Scale 7-10) Last Admin: 01/23/22 07:27 Dose: 5 mg Sodium Chloride (0.9 % Sodium Chloride Flush 3 Ml Syringe) [address] [facility] Last Admin: 01/23/22 09:03 Dose: Not Given Topiramate (Topiramate 25 Mg Tablet) 25 mg PO DAILY [facility] Vitamin D (Cholecalciferol (Vitamin D3) 25 Mcg Tablet) 50 mcg PO DAILY [facility] Last Admin: 01/23/22 12:45 Dose: 50 mcg Home Medications Medication Instructions Recorded Confirmed Last Taken Type aspirin 81 mg chewable tablet 1 tab PO DAILY 12/24/21 01/23/22 12/23/21 08:00 History atorvastatin 80 mg tablet 1 tab PO DAILY 12/24/21 01/23/22 12/23/21 08:00 History betamethasone dipropionate 0.05 % 1 appl topical BID 12/24/21 01/23/22 Unknown History topical ointment calcipotriene 0.005 % topical 1 applic topical BID 12/24/21 01/23/22 Unknown History ointment carvedilol 12.5 mg tablet 1 tab PO BID 12/24/21 01/23/22 12/23/21 08:00 History cholecalciferol (vitamin D3) 50 1 cap PO DAILY 12/24/21 01/23/22 12/23/21 08:00 History mcg (2,000 unit) capsule (Vitamin D3) clindamycin phosphate 1 % topical 1 applic topical BID 12/24/21 01/23/22 Unknown History gel cyanocobalamin (vitamin B-12) 1 tab PO DAILY 12/24/21 01/23/22 12/23/21 08:00 History 1,000 mcg tablet (Vitamin B-12) famotidine 20 mg tablet 1 tab PO DAILY 12/24/21 01/23/22 12/22/21 21:00 History gabapentin 100 mg capsule 1 cap PO TID 12/24/21 01/23/22 12/23/21 12:00 History insulin lispro 100 unit/mL See Protocol subcut TIDAC 12/24/21 01/23/22 Unknown History subcutaneous pen lactulose 10 gram/15 mL oral 15 ml PO DAILY PRN Constipation 12/24/21 01/23/22 Unknown History solution loperamide 2 mg capsule 1 cap PO Q6H PRN Diarrhea 12/24/21 01/23/22 12/23/21 08:00 History pantoprazole 40 mg tablet,delayed 1 tab PO DAILY 12/24/21 01/23/22 12/23/21 08:00 History release semaglutide 1 mg/dose (2 mg/1.5 1 mg subcut SA@0900 12/24/21 01/23/22 Unknown History mL) subcutaneous pen injector (Ozempic) topiramate 25 mg tablet 1 tab PO DAILY 12/24/21 01/23/22 12/22/21 21:00 History doxycycline hyclate 100 mg tablet 1 tab PO BID 01/23/22 01/23/22 Unknown History fluocinonide 0.05 % topical cream 1 applic topical BID 01/23/22 01/23/22 Unknown History hydrocortisone 2.5 % topical cream 1 appl topical BID PRN Skin 01/23/22 01/23/22 Unknown History Irritation Physical Exam Vital Signs: Last Vital Signs Temp 96.6 F L 01/23/22 09:33 Pulse 79 01/23/22 09:33 Resp 11 L 01/23/22 09:33 BP 157/79 H 01/23/22 09:33 Pulse Ox 99 01/23/22 09:33 O2 Del Method 01/23/22 09:33 BMI result Body Mass Index 45.5 Const General: cooperative, comfortable and no acute distress Chest Chest palpation & inspection: normal inspection of the chest Resp Effort & Inspection: normal respiratory effort Auscultation: clear to auscultation bilaterally Cardio Jugular venous distension: no JVD Rate: regular rate GI Inspection: Yes normal to inspection Auscultation: normal bowel sounds General: Yes no CVA tenderness Back/Spine/Pelvis Back: no CVA tenderness Extrem Other: 2-3+ LE Edema Results Lab Results Result Diagrams: 01/23/22 05:52 01/23/22 05:52 Lab results: Chemistry 01/22/22 01/22/22 01/23/22 19:06 23:30 05:52 Sodium 136 141 142 Potassium 4.2 3.5 3.7 Carbon Dioxide 17 L 14 L 15 L BUN 67 H 60 H 64 H Creatinine 6.17 H* 5.36 H* 5.58 H* Calcium 7.6 L 6.6 L D 7.4 L D Hematology 01/22/22 01/23/22 19:06 05:52 WBC 8.8 9.6 Hgb 7.7 L 7.3 L Plt Count 153 L D 150 L Urinalysis 01/22/22 19:07 Urine Color Yellow Urine Appearance Clear Urine pH 6.5 Ur Specific [place] 1.015 Urine Protein 300 (3+) H Urine Glucose (UA) >=1000 H Urine Ketones Negative Urine Blood Small (1+) H Urine Nitrite Negative Ur Leukocyte Esterase Negative Urine RBC 3-5 H Urine WBC 0-5 Ur Squamous Epith Cells 0-2 Hyaline Casts 0-2 Assessment and Plan (1) Acute kidney injury superimposed on CKD: Status: Acute (2) Metabolic acidosis: Status: Acute (3) Hypertensive urgency: Status: Acute (4) Anemia: Status: Acute (5) Metabolic acidosis: Status: Acute (6) CKD stage 5 due to type 2 diabetes mellitus: Status: Acute Plan Ms. 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 Nephrology inovlved to managed stigmata of advanced CKD. 1. CKD stage V Biopsy proven diabetic nephropathy with 60% global sclerosis and 70% interstitial fibrosis. Severe hypertensive disease ontop of this, with severe hyaline sclerosis. 2. Hypertensive Emergency LE edema 3. Metabolic acidosis related to low GFR 4. Nephrogenic Anemia Tsat 445 Ferritin 480 Iron 80 Plan: - no acute need for COUNTER SALES PERSON, hopefully if we optimize medical management we can maintain homeostasis off HD for some time longer - start Torsemide 40mg BID, titrate up based on BP and UOP - increase coreg to 25mg BID - increase amlodipine to 10mg - Start EPO 20,000u dose today - NaBicarb 1300mg BID for now as well. John Ocasio MD [facility] Procedures Date of Service Date of Service: 01/23/22
[2022-01-23] MEDS: Topiramate 25 MG TABLET PO (13:57)
[2022-01-23] MEDS: levETIRAcetam 500 MG TABLET PO (13:57)
[2022-01-23] MEDS: Gabapentin 100 MG CAPSULE PO ×2 (13:57→20:15)
--- NOTE | 2022-01-23 14:53 | MHC.CM.PN ---
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 Home/resume said services is the goal and CM has initiated and will follow for dc planning. Patient has received Moderna/covid vax x3 and her PCP is Dr. Delfina Butler.
[2022-01-23] MEDS: Sodium Bicarbonate 650 MG TABLET 1300 MG PO ×2 (15:25→20:14)
[2022-01-23] MEDS: Torsemide 20 MG TABLET 40 MG PO (17:54)
--- NOTE | 2022-01-23 18:02 | PC.NURSE ---
report received from RN in [facility], care assumed at 1716. Pt oriented to room and educated paintings conservator dean use. pt c/o nausea, itchy skin and pain in her back. servicenow administrator developer per JUN. call dean within reach, safety precautions taken.
[2022-01-23] MEDS: carvediloL 12.5 MG TABLET 25 MG PO (20:15)
[2022-01-23] MEDS: 0.9 % Sodium Chloride Flush 3 ML SYRINGE IVFLUSH (20:15)
[2022-01-24] VITALS (9 sets, daily range): BP systolic 103–161; BP diastolic 58–82; PULSE 68–91; RESP 18–20; TEMP 36.3–36.9; O2SAT 96–100
[2022-01-24] MEDS: oxyCODONE HCl Immed Release 5 MG TABLET PO ×4 (03:01→23:47)
[2022-01-24] MEDS: Heparin Sodium,Porcine 5,000 UNIT/ML VIAL 5000 UNIT SUBCUT ×2 (03:02→17:28)
[2022-01-24] MEDS: Omeprazole 20 MG CAPSULE.DR PO (06:30)
[2022-01-24 07:21] LABS: Mean Corpuscular HGB Conc 33.5 g/dl (31.0-35.0); Mean Corpuscular Hemoglobin 27.4 pg (27.0-33.0); Mean Corpuscular Volume 81.7 fL (80.0-98.0); Mean Platelet Volume 9.7 fL (9.4-12.3); Platelet Count 154 X10*3/uL (160-400); Red Blood Count 2.41 X10*6/uL (4.20-5.50); Red Cell Distribution Width 16.3 % (11.0-16.0); White Blood Count 7.9 X10*3/uL (4.8-10.8)
--- NOTE | 2022-01-24 07:29 | PC.NURSE ---
Addendum entered by Renetta Vee RN 01/24/22 14:38: 1 unit PRBC administered per TAR and orders. Consent signed. home administrator per JUN. pt has no complaints at this time. Call dean within reach, safety precautions taken. Original Note: Report received from overnight RN. Received critical H/H values of 6.6/19.7 at 0727MD notified.
[2022-01-24 07:32] LABS: Hemoglobin 6.6 g/dl (12.0-16.0)
[2022-01-24 07:33] LABS: Hematocrit 19.7 % (37.0-47.0)
[2022-01-24 07:49] LABS: Anion Gap 15 (12-20); Blood Urea Nitrogen 60 mg/dL (9-16); Calcium 7.2 mg/dL (8.4-10.2); Carbon Dioxide 16 mmol/L (22-29); Chloride 111 mmol/L (96-108); Creatinine Clr Calc Pharmacy 12.7; Estimated Glomerular Filt Rate 7; Glucose Random 272 mg/dL (60-115); Potassium 4.1 mmol/L (3.3-5.1); Sodium 138 mmol/L (135-145)
[2022-01-24] MEDS: Insulin Lispro 100 UNIT/ML 3 ML VIAL SUBCUT ×4 (07:56→20:56)
[2022-01-24] MEDS: 0.9 % Sodium Chloride Flush 3 ML SYRINGE IVFLUSH ×3 (07:57→20:57)
[2022-01-24] MEDS: Aspirin 81 MG TAB.CHEW PO (08:00)
[2022-01-24] MEDS: Cholecalciferol (Vitamin D3) 25 MCG TABLET 50 MCG PO (08:01)
[2022-01-24] MEDS: Cyanocobalamin (Vitamin B-12) 1,000 MCG TABLET 1000 MCG PO (08:01)
[2022-01-24] MEDS: Famotidine 20 MG TABLET PO (08:01)
[2022-01-24] MEDS: Sodium Bicarbonate 650 MG TABLET 1300 MG PO ×2 (08:01→20:56)
[2022-01-24] MEDS: Gabapentin 100 MG CAPSULE PO ×3 (08:01→20:56)
[2022-01-24] MEDS: amLODIPine Besylate 10 MG TABLET PO (08:01)
[2022-01-24] MEDS: Atorvastatin Calcium 80 MG TABLET PO (08:01)
[2022-01-24] MEDS: levETIRAcetam 500 MG TABLET PO (08:01)
[2022-01-24] MEDS: carvediloL 12.5 MG TABLET 25 MG PO ×2 (08:01→20:56)
[2022-01-24] MEDS: Torsemide 20 MG TABLET 40 MG PO ×2 (08:02→16:17)
[2022-01-24] MEDS: Topiramate 25 MG TABLET PO (08:05)
[2022-01-24] MEDS: ondansetron HCL 4 MG/2 ML VIAL IVPUSH (09:55)
--- NOTE | 2022-01-24 10:31 | HO.PM.IMPN ---
Subjective Subjective Date of Service: 01/24/22 Interval History: c/o FORD, fatigue, and leg edema no chest pain consents for blood transfusion Review of Systems Review of Systems: Yes all other systems are reviewed and are negative Physical Exam Vital Signs: Vital Signs: Last Vital Signs Temp 97.5 F 01/24/22 07:48 Pulse 79 01/24/22 07:48 Resp 20 01/24/22 07:48 BP 139/72 01/24/22 07:48 Pulse Ox 100 01/24/22 07:48 O2 Del Method 01/24/22 07:48 BMI result Body Mass Index 45.5 Gen: in no acute distress HEENT: sclera anicteric, moist mucus membranes Neck: supple Lungs: clear to auscultation bilaterally Heart: regular rate and rhythm, no murmurs Abd: soft, non-tender, non-distended, obese Ext: 2+ LE edema Skin: warm/well-perfused Neuro: alert and oriented x3, no focal findings Psych: appropriate affect Objective Data Active Medications Acetaminophen (Acetaminophen 325 Mg Tablet) 650 mg PO Q6H PRN PRN Reason: Pain, Mild (Pain Scale 1-3) Last Admin: 01/23/22 12:20 Dose: 650 mg Documented By: JONY Amlodipine Besylate (Amlodipine Besylate 10 Mg Tablet) 10 mg PO DAILY [facility]; Protocol Last Admin: 01/24/22 08:01 Dose: 10 mg Documented By: ANAIS Aspirin (Aspirin 81 Mg Tab.Chew) 81 mg PO DAILY [facility] Last Admin: 01/24/22 08:00 Dose: 81 mg Documented By: ANAIS Comments: MD notified of plt count, verbal order to administer still Atorvastatin Calcium (Atorvastatin Calcium 80 Mg Tablet) 80 mg PO DAILY [facility] Last Admin: 01/24/22 08:01 Dose: 80 mg Documented By: ANAIS Carvedilol (Carvedilol 12.5 Mg Tablet) 25 mg PO BID [facility]; Protocol Last Admin: 01/24/22 08:01 Dose: 25 mg Documented By: ANAIS Cyanocobalamin (Cyanocobalamin (Vitamin B-12) 1,000 Mcg Tablet) 1,000 mcg PO DAILY [facility] Last Admin: 01/24/22 08:01 Dose: 1,000 mcg Documented By: ANAIS Dextrose (Dextrose 50 % 25 Gm/50 Ml Syringe) 25 gm IVPUSH Q15M PRN; Protocol PRN Reason: per Hypoglycemia Standing Ord. Docusate Sodium (Docusate Sodium 100 Mg Capsule) 100 mg PO DAILY PRN PRN Reason: Constipation Famotidine (Famotidine 20 Mg Tablet) 20 mg PO DAILY [facility] Last Admin: 01/24/22 08:01 Dose: 20 mg Documented By: ANAIS Gabapentin (Gabapentin 100 Mg Capsule) 100 mg PO TID [facility] Last Admin: 01/24/22 08:01 Dose: 100 mg Documented By: ANAIS Glucose (Glucose Gel 15 Gm Gel..Gram.) 15 gm PO Q15M PRN; Protocol PRN Reason: per Hypoglycemia Standing Ord. Heparin Sodium (Porcine) (Heparin Sodium,Porcine 5,000 Unit/Ml Vial) 5,000 unit SUBCUT Q8H [facility] Last Admin: 01/24/22 08:04 Dose: Not Given Documented By: ANAIS Non-Admin Reason: Physician Approved Hydralazine HCl (Hydralazine Hcl 20 Mg/Ml Vial) 5 mg IVPUSH Q4H PRN; Protocol PRN Reason: sb>180 Hydrocortisone (Hydrocortisone 1 % Cream 28.35 Gm Tube) 1 appl TOPICAL BID PRN PRN Reason: Skin Irritation Insulin Human Lispro (Insulin Lispro 100 Unit/Ml 3 Ml Vial) 0 unit SUBCUT QIDACHS [facility]; Protocol Last Admin: 01/24/22 07:56 Dose: 4 unit Documented By: ANAIS Lactulose (Lactulose 20 Gm/30 Ml Solution) 10 gm PO DAILY PRN PRN Reason: Constipation Levetiracetam (Levetiracetam 500 Mg Tablet) 500 mg PO DAILY [facility] Last Admin: 01/24/22 08:01 Dose: 500 mg Documented By: ANAIS Omeprazole (Omeprazole 20 Mg Capsule.) 20 mg PO DAILY@0630 [facility] Last Admin: 01/24/22 06:30 Dose: 20 mg Documented By: CHRISTIANO Ondansetron HCl (Ondansetron Hcl 4 Mg/2 Ml Vial) 4 mg IVPUSH Q8H PRN PRN Reason: Nausea and Vomiting Last Admin: 01/24/22 09:55 Dose: 4 mg Documented By: ANAIS Oxycodone HCl (Oxycodone Hcl Immed Release 5 Mg Tablet) 5 mg PO Q6H PRN PRN Reason: Pain, Severe (Pain Scale 7-10) Last Admin: 01/24/22 09:54 Dose: 5 mg Documented By: ANAIS Sodium Bicarbonate (Sodium Bicarbonate 650 Mg Tablet) 1,300 mg PO BID [facility] Last Admin: 01/24/22 08:01 Dose: 1,300 mg Documented By: ANAIS Sodium Chloride (0.9 % Sodium Chloride Flush 3 Ml Syringe) [facility] Last Admin: 01/24/22 07:57 Dose: 3 ml Documented By: ANAIS Topiramate (Topiramate 25 Mg Tablet) 25 mg PO DAILY [facility] Last Admin: 01/24/22 08:05 Dose: 25 mg Documented By: ANAIS Torsemide (Torsemide 20 Mg Tablet) 40 mg PO BID@0800,1700 [facility]; Protocol Last Admin: 01/24/22 08:02 Dose: 40 mg Documented By: ANAIS Vitamin D (Cholecalciferol (Vitamin D3) 25 Mcg Tablet) 50 mcg PO DAILY [facility] Last Admin: 01/24/22 08:01 Dose: 50 mcg Documented By: ANAIS Labs CBC & Chem 7: 01/24/22 06:19 01/24/22 06:19 Labs: Laboratory Results - last 24 hr 01/23/22 01/23/22 01/23/22 11:32 17:20 19:37 MCV MCH MCHC RDW Plt Count MPV Absolute Nucleated RBC Nucleated RBC % (auto) Anion Gap Estim Creat Clear Calc Estimated GFR POC Glucose 240 H 179 H 238 H Random Glucose Calcium Blood Type Antibody Screen Crossmatch 01/24/22 01/24/22 01/24/22 06:19 06:19 07:17 MCV 81.7 MCH 27.4 MCHC 33.5 RDW 16.3 H Plt Count 154 L MPV 9.7 Absolute Nucleated RBC 0.000 Nucleated RBC % (auto) 0.0 Anion Gap 15 Estim Creat Clear Calc 12.7 Estimated GFR 7 POC Glucose 241 H Random Glucose 272 H Calcium 7.2 L Blood Type Antibody Screen Crossmatch 01/24/22 08:10 MCV MCH MCHC RDW Plt Count MPV Absolute Nucleated RBC Nucleated RBC % (auto) Anion Gap Estim Creat Clear Calc Estimated GFR POC Glucose Random Glucose Calcium Blood Type A Positive Antibody Screen NEGATIVE Crossmatch See Detail Assessment and Plan (1) CKD stage 5 due to type 2 diabetes mellitus: Status: Acute Plan d#2 56yo F with CKD5, biopsy-proven advanced DM neuropathy, uncontrolled HTN, DM2, anemia of CKD, sleep apnea not on CPAP # EMIL/CKD5 # metabolic acidosis - Nephro consulted, continue torsemide 40 mg bid + monitor I/O - started on sodium bicarbonate supplementation # uncontrolled HTN - increased amlodipine + carvedilol; diuretic as above # anemia of CKD - epo per Nephro - transfuse 1u pRBCs now, recheck H+H - FOBT # hypoCa - resolved (corrected for hypoalbuminemia) # sz disorder - continue levetiracetam + topiramate # HLD - statin # CAREY - CPAP at night # DM2, A1c 8.7 - continue correction-dose lispro # chronic back pain - oxycodone, gabapentin # morbid obesity - weight loss advised # VTE ppx: UFH In my clinical judgment, the patient requires continued hospitalization for the following reasons:EMIL Quality Stroke Does the patient have a stroke diagnosis?: No VTE Prior VTE?: No VTE Risk Level:: Medical - moderate - high VTE Device Contraindication: Treatment Not Indicated VTE Drug Contraindication: N/A - Med Ordered
[2022-01-24] MEDS: Hydrocortisone 1 % Cream 28.35 GM TUBE 1 APPL TOPICAL (11:41)
--- NOTE | 2022-01-24 12:41 | PM.PNNEP ---
Subjective Subjective Date of Service: 01/24/22 Interval history: getting transfusion Torsemide with improved UOP per patient Physical Exam Vital Signs: Vital Signs: Last Vital Signs Temp 97.9 F 01/24/22 11:33 Pulse 68 01/24/22 11:33 Resp 18 01/24/22 11:33 BP 103/58 L 01/24/22 11:33 Pulse Ox 100 01/24/22 07:48 O2 Del Method 01/24/22 07:48 BMI result Body Mass Index 45.5 Const: General: cooperative, comfortable and no acute distress Chest: Chest palpation & inspection: normal inspection of the chest Resp: Effort & Inspection: normal respiratory effort Auscultation: clear to auscultation bilaterally Cardio: Jugular venous distension: no JVD Rate: regular rate GI: Inspection: Yes normal to inspection Auscultation: normal bowel sounds : General: Yes no CVA tenderness Back/Spine/Pelvis: Back: no CVA tenderness Extrem: Other: 2-3+ LE Edema Objective Data Labs CBC & Chem 7: 01/24/22 06:19 01/24/22 06:19 Labs: Laboratory Results - last 24 hr 01/23/22 01/23/22 01/24/22 17:20 19:37 06:19 WBC 7.9 RBC 2.41 L Hgb 6.6 L* Hct 19.7 L* MCV 81.7 MCH 27.4 MCHC 33.5 RDW 16.3 H Plt Count 154 L MPV 9.7 Absolute Nucleated RBC 0.000 Nucleated RBC % (auto) 0.0 Sodium Potassium Chloride Carbon Dioxide Anion Gap BUN Creatinine Estim Creat Clear Calc Estimated GFR POC Glucose 179 H 238 H Random Glucose Calcium Blood Type Antibody Screen Crossmatch 01/24/22 01/24/22 01/24/22 06:19 07:17 08:10 WBC RBC Hgb Hct MCV MCH MCHC RDW Plt Count MPV Absolute Nucleated RBC Nucleated RBC % (auto) Sodium 138 Potassium 4.1 Chloride 111 H Carbon Dioxide 16 L Anion Gap 15 BUN 60 H Creatinine 5.88 H* Estim Creat Clear Calc 12.7 Estimated GFR 7 POC Glucose 241 H Random Glucose 272 H Calcium 7.2 L Blood Type A Positive Antibody Screen NEGATIVE Crossmatch See Detail 01/24/22 11:27 WBC RBC Hgb Hct MCV MCH MCHC RDW Plt Count MPV Absolute Nucleated RBC Nucleated RBC % (auto) Sodium Potassium Chloride Carbon Dioxide Anion Gap BUN Creatinine Estim Creat Clear Calc Estimated GFR POC Glucose 254 H Random Glucose Calcium Blood Type Antibody Screen Crossmatch Procedures Date of Service Date of Service: 01/24/22 Assessment & Plan Assessment and plan (1) Acute kidney injury superimposed on CKD: Status: Acute (2) Metabolic acidosis: Status: Acute (3) Hypertensive urgency: Status: Acute (4) Anemia: Status: Acute (5) CKD stage 5 due to type 2 diabetes mellitus: Status: Acute Plan Ms. 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 Nephrology inovlved to managed stigmata of advanced CKD. 1. CKD stage V Biopsy proven diabetic nephropathy with 60% global sclerosis and 70% interstitial fibrosis. Severe hypertensive disease ontop of this, with severe hyaline sclerosis. 2. Hypertensive Emergency LE edema 3. Metabolic acidosis related to low GFR 4. Nephrogenic Anemia Tsat 445 Ferritin 480 Iron 80 Plan: - c/w Torsemide 40mg BID, so far UOP improved - c/w coreg to 25mg BID - c/w amlodipine to 10mg - EPO 20,000u dosed 01/23 - NaBicarb 1300mg BID for now as well - will make a daily assessment for Permcath / HD needs John Ocasio MD [facility] Time Spent With Patient Time: Total time spent is greater than 50% in coordination of care (as documented) at patient's floor/unit and/or counseling patient: Progress Note: Quality Stroke Does the patient have a stroke diagnosis?: No
[2022-01-24 15:22] LABS: Hematocrit 23.5 % (37.0-47.0); Hemoglobin 7.9 g/dl (12.0-16.0)
[2022-01-24] MEDS: Acetaminophen 325 MG TABLET 650 MG PO (20:57)
[2022-01-25] VITALS (9 sets, daily range): BP systolic 105–129; BP diastolic 54–65; PULSE 71–98; RESP 14–20; TEMP 36.2–37.1; O2SAT 95–100
[2022-01-25 06:03] LABS: Hematocrit 23.9 % (37.0-47.0); Hemoglobin 7.7 g/dl (12.0-16.0); Mean Corpuscular HGB Conc 32.2 g/dl (31.0-35.0); Mean Corpuscular Hemoglobin 26.6 pg (27.0-33.0); Mean Corpuscular Volume 82.7 fL (80.0-98.0); Mean Platelet Volume 9.7 fL (9.4-12.3); NRBC Pct Auto 0.6 /100WBC (0.0-0.2); Platelet Count 164 X10*3/uL (160-400); Red Blood Count 2.89 X10*6/uL (4.20-5.50); Red Cell Distribution Width 16.3 % (11.0-16.0); White Blood Count 9.3 X10*3/uL (4.8-10.8)
[2022-01-25] MEDS: oxyCODONE HCl Immed Release 5 MG TABLET PO ×2 (06:16→14:06)
[2022-01-25 06:24] LABS: Anion Gap 16 (12-20); Blood Urea Nitrogen 65 mg/dL (9-16); Calcium 7.4 mg/dL (8.4-10.2); Carbon Dioxide 18 mmol/L (22-29); Chloride 107 mmol/L (96-108); Glucose Random 212 mg/dL (60-115); Potassium 4.5 mmol/L (3.3-5.1); Sodium 136 mmol/L (135-145)
[2022-01-25 06:26] LABS: Creatinine Clr Calc Pharmacy 11.8; Estimated Glomerular Filt Rate 7
[2022-01-25 07:31] LABS: Glucose, Whole Blood 214 mg/dL (60-115)
[2022-01-25] MEDS: Insulin Lispro 100 UNIT/ML 3 ML VIAL SUBCUT ×4 (08:34→22:55)
[2022-01-25] MEDS: levETIRAcetam 500 MG TABLET PO (08:34)
[2022-01-25] MEDS: Cholecalciferol (Vitamin D3) 25 MCG TABLET 50 MCG PO (08:35)
[2022-01-25] MEDS: Atorvastatin Calcium 80 MG TABLET PO (08:35)
[2022-01-25] MEDS: Gabapentin 100 MG CAPSULE PO ×3 (08:35→22:53)
[2022-01-25] MEDS: carvediloL 12.5 MG TABLET 25 MG PO ×2 (08:35→22:53)
[2022-01-25] MEDS: Topiramate 25 MG TABLET PO (08:35)
[2022-01-25] MEDS: Famotidine 20 MG TABLET PO (08:35)
[2022-01-25] MEDS: Cyanocobalamin (Vitamin B-12) 1,000 MCG TABLET 1000 MCG PO (08:35)
[2022-01-25] MEDS: amLODIPine Besylate 10 MG TABLET PO (08:35)
[2022-01-25] MEDS: Torsemide 20 MG TABLET 40 MG PO ×2 (08:35→18:24)
[2022-01-25] MEDS: Aspirin 81 MG TAB.CHEW PO (08:35)
[2022-01-25] MEDS: 0.9 % Sodium Chloride Flush 3 ML SYRINGE IVFLUSH ×2 (09:35→18:16)
--- NOTE | 2022-01-25 09:37 | MHC.CLN ---
NUTRITION ADDED 2 GRAM SODIUM TO DIET ORDER DUE TO DX CKD STAGE 5. DIET=DIABETIC 1800 KCALS, 2 GRAM SODIUM.
[2022-01-25] MEDS: Heparin Sodium,Porcine 5,000 UNIT/ML VIAL 5000 UNIT SUBCUT ×2 (10:13→18:15)
[2022-01-25] MEDS: Sodium Bicarbonate 650 MG TABLET 1300 MG PO ×2 (10:13→22:56)
--- NOTE | 2022-01-25 11:33 | P.PNIM_ITS ---
Subjective Subjective Date of Service: 01/25/22 Interval History: feels she is urinating a lot though fluid balance is net positive SCr increasing c/o constipation c/o nausea Review of Systems Review of Systems: Yes all other systems are reviewed and are negative Physical Exam Vital Signs: Vital Signs: Last Vital Signs Temp 97.8 F 01/25/22 07:57 Pulse 73 01/25/22 07:57 Resp 20 01/25/22 07:57 BP 129/55 L 01/25/22 07:57 Pulse Ox 96 01/25/22 07:57 O2 Del Method 01/25/22 07:57 BMI result Body Mass Index 45.5 Gen: in no acute distress HEENT: sclera anicteric, moist mucus membranes Neck: supple Lungs: clear to auscultation bilaterally Heart: regular rate and rhythm, no murmurs Abd: soft, non-tender, non-distended, obese Ext: 2+ nonpitting LE edema Skin: warm/well-perfused Neuro: alert and oriented x3, no focal findings Psych: appropriate affect Objective Data Active Medications Acetaminophen (Acetaminophen 325 Mg Tablet) 650 mg PO Q6H PRN PRN Reason: Pain, Mild (Pain Scale 1-3) Last Admin: 01/24/22 20:57 Dose: 650 mg Documented By: TERESA Amlodipine Besylate (Amlodipine Besylate 10 Mg Tablet) 10 mg PO DAILY [facility]; Protocol Last Admin: 01/25/22 08:35 Dose: 10 mg Documented By: ABI Aspirin (Aspirin 81 Mg Tab.Chew) 81 mg PO DAILY [facility] Last Admin: 01/25/22 08:35 Dose: 81 mg Documented By: ABI Atorvastatin Calcium (Atorvastatin Calcium 80 Mg Tablet) 80 mg PO DAILY [facility] Last Admin: 01/25/22 08:35 Dose: 80 mg Documented By: ABI Carvedilol (Carvedilol 12.5 Mg Tablet) 25 mg PO BID [facility]; Protocol Last Admin: 01/25/22 08:35 Dose: 25 mg Documented By: ABI Cyanocobalamin (Cyanocobalamin (Vitamin B-12) 1,000 Mcg Tablet) 1,000 mcg PO DAILY [facility] Last Admin: 01/25/22 08:35 Dose: 1,000 mcg Documented By: ABI Dextrose (Dextrose 50 % 25 Gm/50 Ml Syringe) 25 gm IVPUSH Q15M PRN; Protocol PRN Reason: per Hypoglycemia Standing Ord. Docusate Sodium (Docusate Sodium 100 Mg Capsule) 100 mg PO DAILY PRN PRN Reason: Constipation Famotidine (Famotidine 20 Mg Tablet) 20 mg PO DAILY [facility] Last Admin: 01/25/22 08:35 Dose: 20 mg Documented By: ABI Gabapentin (Gabapentin 100 Mg Capsule) 100 mg PO TID [facility] Last Admin: 01/25/22 08:35 Dose: 100 mg Documented By: ABI Glucose (Glucose Gel 15 Gm Gel..Gram.) 15 gm PO Q15M PRN; Protocol PRN Reason: per Hypoglycemia Standing Ord. Heparin Sodium (Porcine) (Heparin Sodium,Porcine 5,000 Unit/Ml Vial) 5,000 unit SUBCUT Q8H [facility] Last Admin: 01/25/22 10:13 Dose: 5,000 unit Documented By: ABI Hydralazine HCl (Hydralazine Hcl 20 Mg/Ml Vial) 5 mg IVPUSH Q4H PRN; Protocol PRN Reason: sb>180 Hydrocortisone (Hydrocortisone 1 % Cream 28.35 Gm Tube) 1 appl TOPICAL BID PRN PRN Reason: Skin Irritation Last Admin: 01/24/22 11:41 Dose: 1 appl Documented By: ANAIS Insulin Human Lispro (Insulin Lispro 100 Unit/Ml 3 Ml Vial) 0 unit SUBCUT QIDACHS [facility]; Protocol Last Admin: 01/25/22 08:34 Dose: 4 unit Documented By: ABI Lactulose (Lactulose 20 Gm/30 Ml Solution) 10 gm PO DAILY PRN PRN Reason: Constipation Levetiracetam (Levetiracetam 500 Mg Tablet) 500 mg PO DAILY [facility] Last Admin: 01/25/22 08:34 Dose: 500 mg Documented By: ABI Omeprazole (Omeprazole 20 Mg Capsule.) 20 mg PO DAILY@0630 [facility] Last Admin: 01/25/22 06:04 Dose: Not Given Documented By: TERESA Non-Admin Reason: Patient Refused Ondansetron HCl (Ondansetron Hcl 4 Mg/2 Ml Vial) 4 mg IVPUSH Q8H PRN PRN Reason: Nausea and Vomiting Last Admin: 01/24/22 09:55 Dose: 4 mg Documented By: ANAIS Oxycodone HCl (Oxycodone Hcl Immed Release 5 Mg Tablet) 5 mg PO Q6H PRN PRN Reason: Pain, Severe (Pain Scale 7-10) Last Admin: 01/25/22 06:16 Dose: 5 mg Documented By: TERESA Sodium Bicarbonate (Sodium Bicarbonate 650 Mg Tablet) 1,300 mg PO BID [facility] Last Admin: 01/25/22 10:13 Dose: 1,300 mg Documented By: ABI Sodium Chloride (0.9 % Sodium Chloride Flush 3 Ml Syringe) 3 ml IVFLUSH QSHIFT [facility] Last Admin: 01/25/22 09:35 Dose: 3 ml Documented By: ABI Topiramate (Topiramate 25 Mg Tablet) 25 mg PO DAILY [facility] Last Admin: 01/25/22 08:35 Dose: 25 mg Documented By: ABI Torsemide (Torsemide 20 Mg Tablet) 40 mg PO BID@0800,1700 [facility]; Protocol Last Admin: 01/25/22 08:35 Dose: 40 mg Documented By: ABI Vitamin D (Cholecalciferol (Vitamin D3) 25 Mcg Tablet) 50 mcg PO DAILY [facility] Last Admin: 01/25/22 08:35 Dose: 50 mcg Documented By: ABI Labs CBC & Chem 7: 01/25/22 05:51 01/25/22 05:51 Labs: Laboratory Results - last 24 hr 01/24/22 01/24/22 01/24/22 08:10 16:12 19:46 MCV MCH MCHC RDW Plt Count MPV Absolute Nucleated RBC Nucleated RBC % (auto) Anion Gap Estim Creat Clear Calc Estimated GFR POC Glucose 202 H 196 H Random Glucose Calcium Crossmatch See Detail 01/25/22 01/25/22 01/25/22 05:51 05:51 07:23 MCV 82.7 MCH 26.6 L MCHC 32.2 RDW 16.3 H Plt Count 164 MPV 9.7 Absolute Nucleated RBC 0.060 H Nucleated RBC % (auto) 0.6 H Anion Gap 16 Estim Creat Clear Calc 11.8 Estimated GFR 7 POC Glucose 214 H Random Glucose 212 H Calcium 7.4 L Crossmatch Assessment and Plan (1) CKD stage 5 due to type 2 diabetes mellitus: Status: Acute Plan d#3 56yo F with CKD5, biopsy-proven advanced DM neuropathy, uncontrolled HTN, DM2, anemia of CKD, sleep apnea not on CPAP # EMIL/CKD5 # metabolic acidosis - Nephro consulted, will likely need Permacath/HD if not improving over next few days - continue torsemide 40 mg bid + monitor I/O - continue sodium bicarbonate supplementation # uncontrolled HTN - increased amlodipine + carvedilol; diuretic as above # anemia of CKD - epo per Nephro - transfused 1u pRBCs 01/24 with appropriate increase in Hb - FOBT # hypoCa - resolved (corrected for hypoalbuminemia) # sz disorder - continue levetiracetam + topiramate # HLD - statin # CAREY - CPAP at night # DM2, A1c 8.7 - continue correction-dose lispro # chronic back pain - oxycodone, gabapentin # morbid obesity - weight loss advised # VTE ppx: UFH In my clinical judgment, the patient requires continued hospitalization for the following reasons: EMIL Quality Stroke Does the patient have a stroke diagnosis?: No VTE Prior VTE?: No VTE Risk Level:: Medical - moderate - high VTE Device Contraindication: Treatment Not Indicated VTE Drug Contraindication: N/A - Med Ordered
[2022-01-25 11:35] LABS: Glucose, Whole Blood 167 mg/dL (60-115)
--- NOTE | 2022-01-25 11:43 | PM.PNNEP ---
Subjective Subjective Date of Service: 01/25/22 Interval history: continues to have UOP optimized by torsemide However refractory acidosis and continues to have edema GFR quite poor in the setting of advanced CKD from biopsy proven DM Nephropathy Physical Exam Vital Signs: Vital Signs: Last Vital Signs Temp 97.8 F 01/25/22 07:57 Pulse 73 01/25/22 07:57 Resp 20 01/25/22 07:57 BP 129/55 L 01/25/22 07:57 Pulse Ox 96 01/25/22 07:57 O2 Del Method 01/25/22 07:57 BMI result Body Mass Index 45.5 Const: General: cooperative, comfortable and no acute distress Chest: Chest palpation & inspection: normal inspection of the chest Resp: Effort & Inspection: normal respiratory effort Auscultation: clear to auscultation bilaterally Cardio: Jugular venous distension: no JVD Rate: regular rate GI: Inspection: Yes normal to inspection Auscultation: normal bowel sounds : General: Yes no CVA tenderness Back/Spine/Pelvis: Back: no CVA tenderness Extrem: Other: 2-3+ LE Edema Objective Data Labs CBC & Chem 7: 01/25/22 05:51 01/25/22 05:51 Labs: Laboratory Results - last 24 hr 01/24/22 01/24/22 01/24/22 08:10 14:53 16:12 WBC RBC Hgb 7.9 L Hct 23.5 L MCV MCH MCHC RDW Plt Count MPV Absolute Nucleated RBC Nucleated RBC % (auto) Sodium Potassium Chloride Carbon Dioxide Anion Gap BUN Creatinine Estim Creat Clear Calc Estimated GFR POC Glucose 202 H Random Glucose Calcium Crossmatch See Detail 01/24/22 01/25/22 01/25/22 19:46 05:51 05:51 WBC 9.3 RBC 2.89 L Hgb 7.7 L Hct 23.9 L MCV 82.7 MCH 26.6 L MCHC 32.2 RDW 16.3 H Plt Count 164 MPV 9.7 Absolute Nucleated RBC 0.060 H Nucleated RBC % (auto) 0.6 H Sodium 136 Potassium 4.5 Chloride 107 Carbon Dioxide 18 L Anion Gap 16 BUN 65 H Creatinine 6.31 H* Estim Creat Clear Calc 11.8 Estimated GFR 7 POC Glucose 196 H Random Glucose 212 H Calcium 7.4 L Crossmatch 01/25/22 01/25/22 07:23 11:28 WBC RBC Hgb Hct MCV MCH MCHC RDW Plt Count MPV Absolute Nucleated RBC Nucleated RBC % (auto) Sodium Potassium Chloride Carbon Dioxide Anion Gap BUN Creatinine Estim Creat Clear Calc Estimated GFR POC Glucose 214 H 167 H Random Glucose Calcium Crossmatch Procedures Date of Service Date of Service: 01/25/22 Assessment & Plan Assessment and plan (1) Acute kidney injury superimposed on CKD: Status: Acute (2) Metabolic acidosis: Status: Acute (3) Hypertensive urgency: Status: Acute (4) Anemia: Status: Acute (5) CKD stage 5 due to type 2 diabetes mellitus: Status: Acute Plan Ms. 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 Nephrology inovlved to managed stigmata of advanced CKD. 1. CKD stage V Biopsy proven diabetic nephropathy with 60% global sclerosis and 70% interstitial fibrosis. Severe hypertensive disease ontop of this, with severe hyaline sclerosis. 2. Hypertensive Emergency LE edema 3. Metabolic acidosis related to low GFR 4. Nephrogenic Anemia Tsat 445 Ferritin 480 Iron 80 Plan: - c/w Torsemide 40mg BID, so far UOP is stable - c/w coreg to 25mg BID - c/w amlodipine to 10mg - EPO 20,000u dosed 01/23 - NaBicarb 1300mg BID - Given her biopsy findings, I do not suspect the patient will be able to stabilize her volume / acid-base for long. Will coordinate for permcath placement tomorrow. Patient will benefit from dialysis placement at [facility]. John Ocasio MD RTANE Time Spent With Patient Time: Total time spent is greater than 50% in coordination of care (as documented) at patient's floor/unit and/or counseling patient: Progress Note: Quality Stroke Does the patient have a stroke diagnosis?: No
[2022-01-25] MEDS: Sennosides/Docusate Sodium TABLET 2 TAB PO ×2 (14:06→22:53)
[2022-01-25 16:16] LABS: Glucose, Whole Blood 251 mg/dL (60-115)
[2022-01-25] MEDS: HYDROmorphone HCl 0.5 MG/0.5 ML SYRINGE IVPUSH ×2 (18:15→23:04)
[2022-01-25 19:58] LABS: Glucose, Whole Blood 216 mg/dL (60-115)
[2022-01-26] VITALS (10 sets, daily range): BP systolic 108–127; BP diastolic 57–64; PULSE 79–88; RESP 16–20; TEMP 36.9–38.2; O2SAT 93–99
[2022-01-26 06:49] LABS: Hematocrit 25.4 % (37.0-47.0); Hemoglobin 8.1 g/dl (12.0-16.0); Mean Corpuscular HGB Conc 31.9 g/dl (31.0-35.0); Mean Corpuscular Hemoglobin 27.5 pg (27.0-33.0); Mean Corpuscular Volume 86.1 fL (80.0-98.0); Mean Platelet Volume 9.9 fL (9.4-12.3); Platelet Count 248 X10*3/uL (160-400); Red Blood Count 2.95 X10*6/uL (4.20-5.50); Red Cell Distribution Width 16.8 % (11.0-16.0); White Blood Count 13.1 X10*3/uL (4.8-10.8)
[2022-01-26 07:16] LABS: Anion Gap 19 (12-20); Blood Urea Nitrogen 72 mg/dL (9-16); Calcium 7.7 mg/dL (8.4-10.2); Carbon Dioxide 16 mmol/L (22-29); Chloride 104 mmol/L (96-108); Creatinine Clr Calc Pharmacy 10.7; Estimated Glomerular Filt Rate 6; Glucose Random 236 mg/dL (60-115); Potassium 5.2 mmol/L (3.3-5.1); Sodium 134 mmol/L (135-145)
[2022-01-26] MEDS: Omeprazole 20 MG CAPSULE.DR PO (07:16)
[2022-01-26 07:23] LABS: Glucose, Whole Blood 207 mg/dL (60-115)
[2022-01-26 07:32] LABS: VBG Base Excess -10.7 mmol/L; VBG HCO3 15 mmol/L (22-26); VBG pCO2 37 mmHg; VBG pH 7.23 (7.32-7.43); VBG pO2 54 mmHg
[2022-01-26] MEDS: Sodium Zirconium Cyclosilicate 10 GM POWD.PACK PO (09:02)
[2022-01-26] MEDS: Torsemide 20 MG TABLET 40 MG PO ×2 (09:03→17:11)
[2022-01-26] MEDS: Atorvastatin Calcium 80 MG TABLET PO (09:04)
[2022-01-26] MEDS: levETIRAcetam 500 MG TABLET PO (09:04)
[2022-01-26] MEDS: Sennosides/Docusate Sodium TABLET 2 TAB PO ×2 (09:04→21:08)
[2022-01-26] MEDS: Topiramate 25 MG TABLET PO (09:04)
[2022-01-26] MEDS: carvediloL 12.5 MG TABLET 25 MG PO ×2 (09:04→21:08)
[2022-01-26] MEDS: Cyanocobalamin (Vitamin B-12) 1,000 MCG TABLET 1000 MCG PO (09:04)
[2022-01-26] MEDS: Famotidine 20 MG TABLET PO (09:04)
[2022-01-26] MEDS: amLODIPine Besylate 10 MG TABLET PO (09:04)
[2022-01-26] MEDS: Sodium Bicarbonate 650 MG TABLET 1300 MG PO ×2 (09:04→21:34)
[2022-01-26] MEDS: Cholecalciferol (Vitamin D3) 25 MCG TABLET 50 MCG PO (09:04)
[2022-01-26] MEDS: Gabapentin 100 MG CAPSULE PO ×3 (09:04→21:08)
[2022-01-26 09:05] LABS: Prothrombin Time 11.4 SEC (10.0-13.1)
[2022-01-26] MEDS: Insulin Lispro 100 UNIT/ML 3 ML VIAL SUBCUT (09:05)
[2022-01-26] MEDS: 0.9 % Sodium Chloride Flush 3 ML SYRINGE IVFLUSH ×3 (09:06→21:09)
[2022-01-26 09:08] LABS: Partial Thromboplastin Time 28.5 SEC (26.0-36.4)
[2022-01-26 09:31] LABS: Procalcitonin 0.19 ng/mL
--- NOTE | 2022-01-26 09:44 | P.PNNP_ITS ---
Subjective Subjective Date of Service: 01/27/22 Interval history: Events noted Scheduled for PC today Physical Exam Vital Signs: Vital Signs: Last Vital Signs Temp 98.5 F 01/26/22 07:08 Pulse 85 01/26/22 07:08 Resp 19 01/26/22 08:59 BP 123/57 L 01/26/22 07:08 Pulse Ox 96 01/26/22 07:08 O2 Del Method 01/26/22 07:08 BMI result Body Mass Index 45.5 Const: General: cooperative, comfortable and no acute distress Chest: Chest palpation & inspection: normal inspection of the chest Resp: Effort & Inspection: normal respiratory effort Auscultation: clear to auscultation bilaterally Cardio: Jugular venous distension: no JVD Rate: regular rate GI: Inspection: Yes normal to inspection Auscultation: normal bowel sounds : General: Yes no CVA tenderness Back/Spine/Pelvis: Back: no CVA tenderness Extrem: Other: 2-3+ LE Edema Objective Data Labs CBC & Chem 7: 01/26/22 06:26 01/27/22 06:37 Labs: Laboratory Results - last 24 hr 01/22/22 01/25/22 01/25/22 21:13 11:28 16:11 WBC RBC Hgb Hct MCV MCH MCHC RDW Plt Count MPV Absolute Nucleated RBC Nucleated RBC % (auto) PT INR APTT VBG pH 7.23 L VBG pCO2 37 VBG pO2 54 VBG HCO3 15 L VBG O2 Saturation 83.0 VBG Base Excess -10.7 Sodium Potassium Chloride Carbon Dioxide Anion Gap BUN Creatinine Estim Creat Clear Calc Estimated GFR POC Glucose 167 H 251 H Random Glucose Calcium Procalcitonin 01/25/22 01/26/22 01/26/22 19:54 06:26 06:26 WBC 13.1 H RBC 2.95 L Hgb 8.1 L Hct 25.4 L MCV 86.1 MCH 27.5 MCHC 31.9 RDW 16.8 H Plt Count 248 D MPV 9.9 Absolute Nucleated RBC 0.130 H Nucleated RBC % (auto) 1.0 H PT INR APTT VBG pH VBG pCO2 VBG pO2 VBG HCO3 VBG O2 Saturation VBG Base Excess Sodium 134 L Potassium 5.2 H Chloride 104 Carbon Dioxide 16 L Anion Gap 19 BUN 72 H Creatinine 6.95 H* Estim Creat Clear Calc 10.7 Estimated GFR 6 POC Glucose 216 H Random Glucose 236 H Calcium 7.7 L Procalcitonin 01/26/22 01/26/22 01/26/22 06:26 07:10 08:00 WBC RBC Hgb Hct MCV MCH MCHC RDW Plt Count MPV Absolute Nucleated RBC Nucleated RBC % (auto) PT 11.4 INR 1.0 APTT 28.5 VBG pH VBG pCO2 VBG pO2 VBG HCO3 VBG O2 Saturation VBG Base Excess Sodium Potassium Chloride Carbon Dioxide Anion Gap BUN Creatinine Estim Creat Clear Calc Estimated GFR POC Glucose 207 H Random Glucose Calcium Procalcitonin 0.19 Procedures Date of Service Date of Service: 01/26/22 Assessment & Plan Assessment and plan (1) Acute kidney injury superimposed on CKD: Status: Acute (2) Metabolic acidosis: Status: Acute (3) Hypertensive urgency: Status: Acute (4) Anemia: Status: Acute (5) CKD stage 5 due to type 2 diabetes mellitus: Status: Acute Plan Ms. 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 Nephrology inovlved to managed stigmata of advanced CKD. 1. CKD stage V Biopsy proven diabetic nephropathy with 60% global sclerosis and 70% in terstitial fibrosis. Severe hypertensive disease ontop of this, with severe hyaline sclerosis. 2. Hypertensive Emergency LE edema 3. Metabolic acidosis related to low GFR 4. Nephrogenic Anemia Tsat 445 Ferritin 480 Iron 80 Plan: - c/w Torsemide 40mg BID, so far UOP is stable - c/w coreg to 25mg BID - c/w amlodipine to 10mg - EPO 20,000u dosed 01/23 - NaBicarb 1300mg BID Await permcath placement and initiate HD with fluid removal Will arrange for dialysis placement at [facility]. Time Spent With Patient Time: Total time spent is greater than 50% in coordination of care (as documented) at patient's floor/unit and/or counseling patient: Progress Note: Quality Stroke Does the patient have a stroke diagnosis?: No
[2022-01-26 11:26] LABS: Glucose, Whole Blood 188 mg/dL (60-115)
--- NOTE | 2022-01-26 12:06 | P.PNIM_ITS ---
Subjective Subjective Date of Service: 01/26/22 Interval History: febrile to 100.8 this AM no cough no dysuria Review of Systems Review of Systems: Yes all other systems are reviewed and are negative Physical Exam Vital Signs: Vital Signs: Last Vital Signs Temp 99.8 F 01/26/22 11:17 Pulse 84 01/26/22 11:17 Resp 18 01/26/22 11:17 BP 116/58 L 01/26/22 11:17 Pulse Ox 94 01/26/22 11:17 O2 Del Method 01/26/22 11:17 BMI result Body Mass Index 45.5 Gen: in no acute distress HEENT: sclera anicteric, moist mucus membranes Neck: supple Lungs: clear to auscultation bilaterally Heart: regular rate and rhythm, no murmurs Abd: soft, non-tender, non-distended, obese Ext: 2+ nonpitting LE edema Skin: warm/well-perfused Neuro: alert and oriented x3, no focal findings Psych: appropriate affect Objective Data Active Medications Acetaminophen (Acetaminophen 325 Mg Tablet) 650 mg PO Q6H PRN PRN Reason: Pain, Mild (Pain Scale 1-3) Last Admin: 01/24/22 20:57 Dose: 650 mg Documented By: TERESA Amlodipine Besylate (Amlodipine Besylate 10 Mg Tablet) 10 mg PO DAILY [facility]; Protocol Last Admin: 01/26/22 09:04 Dose: 10 mg Documented By: ADDISON Aspirin (Aspirin 81 Mg Tab.Chew) 81 mg PO DAILY [facility] Last Admin: 01/26/22 10:51 Dose: Not Given Documented By: ADDISON Non-Admin Reason: hold for surgical procedure Atorvastatin Calcium (Atorvastatin Calcium 80 Mg Tablet) 80 mg PO DAILY [facility] Last Admin: 01/26/22 09:04 Dose: 80 mg Documented By: ADDISON Carvedilol (Carvedilol 12.5 Mg Tablet) 25 mg PO BID [facility]; Protocol Last Admin: 01/26/22 09:04 Dose: 25 mg Documented By: ADDISON Cyanocobalamin (Cyanocobalamin (Vitamin B-12) 1,000 Mcg Tablet) 1,000 mcg PO DAILY [facility] Last Admin: 01/26/22 09:04 Dose: 1,000 mcg Documented By: ADDISON Dextrose (Dextrose 50 % 25 Gm/50 Ml Syringe) 25 gm IVPUSH Q15M PRN; Protocol PRN Reason: per Hypoglycemia Standing Ord. Docusate Sodium (Docusate Sodium 100 Mg Capsule) 100 mg PO DAILY PRN PRN Reason: Constipation Famotidine (Famotidine 20 Mg Tablet) 20 mg PO DAILY [facility] Last Admin: 01/26/22 09:04 Dose: 20 mg Documented By: ADDISON Gabapentin (Gabapentin 100 Mg Capsule) 100 mg PO TID [facility] Last Admin: 01/26/22 09:04 Dose: 100 mg Documented By: ADDISON Glucose (Glucose Gel 15 Gm Gel..Gram.) 15 gm PO Q15M PRN; Protocol PRN Reason: per Hypoglycemia Standing Ord. Heparin Sodium (Porcine) (Heparin Sodium,Porcine 5,000 Unit/Ml Vial) 5,000 unit SUBCUT Q8H [facility] Last Admin: 01/26/22 10:51 Dose: Not Given Documented By: ADDISON Non-Admin Reason: hold for surgical procedure Hydralazine HCl (Hydralazine Hcl 20 Mg/Ml Vial) 5 mg IVPUSH Q4H PRN; Protocol PRN Reason: sb>180 Hydrocortisone (Hydrocortisone 1 % Cream 28.35 Gm Tube) 1 appl TOPICAL BID PRN PRN Reason: Skin Irritation Last Admin: 01/24/22 11:41 Dose: 1 appl Documented By: ANAIS Hydromorphone HCl (Hydromorphone Hcl 0.5 Mg/0.5 Ml Syringe) 0.5 mg IVPUSH Q4H PRN; Protocol PRN Reason: Pain, Severe (Pain Scale 7-10) Last Admin: 01/25/22 23:04 Dose: 0.5 mg Documented By: JOE Insulin Human Lispro (Insulin Lispro 100 Unit/Ml 3 Ml Vial) 0 unit SUBCUT QIDACHS [facility]; Protocol Last Admin: 01/26/22 11:26 Dose: Not Given Documented By: ADDISON Non-Admin Reason: NPO Lactulose (Lactulose 20 Gm/30 Ml Solution) 10 gm PO DAILY PRN PRN Reason: Constipation Levetiracetam (Levetiracetam 500 Mg Tablet) 500 mg PO DAILY [facility] Last Admin: 01/26/22 09:04 Dose: 500 mg Documented By: ADDISON Omeprazole (Omeprazole 20 Mg Capsule.Dr) 20 mg PO DAILY@0630 [facility] Last Admin: 01/26/22 07:16 Dose: 20 mg Documented By: ADDISON Ondansetron HCl (Ondansetron Hcl 4 Mg/2 Ml Vial) 4 mg IVPUSH Q8H PRN PRN Reason: Nausea and Vomiting Last Admin: 01/24/22 09:55 Dose: 4 mg Documented By: FOGARTB Oxycodone HCl (Oxycodone Hcl Immed Release 5 Mg Tablet) 5 mg PO Q6H PRN PRN Reason: Pain, Severe (Pain Scale 7-10) Last Admin: 01/25/22 14:06 Dose: 5 mg Documented By: JOE Polyethylene Glycol (Polyethylene Glycol 3350 17 Gm Powd.Pack) 17 gm PO DAILY PRN PRN Reason: consternation Senna/Docusate Sodium (Sennosides/Docusate Sodium Tablet) 2 tab PO BID [facility] Last Admin: 01/26/22 09:04 Dose: 2 tab Documented By: ADDISON Sodium Bicarbonate (Sodium Bicarbonate 650 Mg Tablet) 1,300 mg PO BID [facility] Last Admin: 01/26/22 09:04 Dose: 1,300 mg Documented By: ADDISON Sodium Chloride (0.9 % Sodium Chloride Flush 3 Ml Syringe) [facility] Last Admin: 01/26/22 09:06 Dose: 3 ml Documented By: ADDISON Topiramate (Topiramate 25 Mg Tablet) 25 mg PO DAILY [facility] Last Admin: 01/26/22 09:04 Dose: 25 mg Documented By: ADDISON Torsemide (Torsemide 20 Mg Tablet) 40 mg PO BID@0800,1700 [facility]; Protocol Last Admin: 01/26/22 09:03 Dose: 40 mg Documented By: ADDISON Vitamin D (Cholecalciferol (Vitamin D3) 25 Mcg Tablet) 50 mcg PO DAILY [facility] Last Admin: 01/26/22 09:04 Dose: 50 mcg Documented By: ADDISON Labs CBC & Chem 7: 01/26/22 06:26 01/26/22 06:26 Labs: Laboratory Results - last 24 hr 10/07/22 10/10/22 10/10/22 21:13 16:11 19:54 MCV MCH MCHC RDW Plt Count MPV Absolute Nucleated RBC Nucleated RBC % (auto) PT INR APTT VBG pH 7.23 L VBG pCO2 37 VBG pO2 54 VBG HCO3 15 L VBG O2 Saturation 83.0 VBG Base Excess -10.7 Anion Gap Estim Creat Clear Calc Estimated GFR POC Glucose 251 H 216 H Random Glucose Calcium Procalcitonin 01/26/22 01/26/22 01/26/22 06:26 06:26 06:26 MCV 86.1 MCH 27.5 MCHC 31.9 RDW 16.8 H Plt Count 248 D MPV 9.9 Absolute Nucleated RBC 0.130 H Nucleated RBC % (auto) 1.0 H PT INR APTT VBG pH VBG pCO2 VBG pO2 VBG HCO3 VBG O2 Saturation VBG Base Excess Anion Gap 19 Estim Creat Clear Calc 10.7 Estimated GFR 6 POC Glucose Random Glucose 236 H Calcium 7.7 L Procalcitonin 0.19 01/26/22 01/26/22 01/26/22 07:10 08:00 11:20 MCV MCH MCHC RDW Plt Count MPV Absolute Nucleated RBC Nucleated RBC % (auto) PT 11.4 INR 1.0 APTT 28.5 VBG pH VBG pCO2 VBG pO2 VBG HCO3 VBG O2 Saturation VBG Base Excess Anion Gap Estim Creat Clear Calc Estimated GFR POC Glucose 207 H 188 H Random Glucose Calcium Procalcitonin Assessment and Plan (1) CKD stage 5 due to type 2 diabetes mellitus: Status: Acute Plan d#4 56yo F with CKD5, biopsy-proven advanced DM neuropathy, uncontrolled HTN, DM2, anemia of CKD, sleep apnea not on CPAP # EMIL/CKD5 # metabolic acidosis - Nephro consulted, Permacath and HD initiation this hospitalization - continue torsemide 40 mg bid + monitor I/O - continue sodium bicarbonate supplementation # hyperK, mild - give 1 dose SZC, recheck BMP in AM # uncontrolled HTN - increased amlodipine + carvedilol; diuretic as above # anemia of CKD - epo per Nephro - transfused 1u pRBCs 01/24 with appropriate increase in Hb - FOBT # hypoCa - resolved (corrected for hypoalbuminemia) # sz disorder - continue levetiracetam + topiramate # HLD - statin # CAREY - CPAP at night # DM2, A1c 8.7 - continue correction-dose lispro # chronic back pain - oxycodone, gabapentin # morbid obesity - weight loss advised # VTE ppx: UFH In my clinical judgment, the patient requires continued hospitalization for the following reasons: EMIL, HD initiation Quality Stroke Does the patient have a stroke diagnosis?: No VTE Prior VTE?: No VTE Risk Level:: Medical - moderate - high VTE Device Contraindication: Treatment Not Indicated VTE Drug Contraindication: N/A - Med Ordered
[2022-01-26 14:36] LABS: COVID-19 Test Negative (Negative)
[2022-01-26] MEDS: HYDROmorphone HCl 0.5 MG/0.5 ML SYRINGE IVPUSH ×2 (16:02→21:07)
[2022-01-26 16:48] LABS: Glucose, Whole Blood 168 mg/dL (60-115)
--- NOTE | 2022-01-26 18:45 | HO.RADPN ---
RADIOLOGY Narrative Narrative: RIJ 12 fr 13cm length Kamini temporary dialysis catheter placed. Tip in SVC.
[2022-01-26 20:01] LABS: Glucose, Whole Blood 164 mg/dL (60-115)
[2022-01-26 23:41] LABS: OBS Int Ctl Valid YES
[2022-01-26 23:42] LABS: OBS1 NEGATIVE (NEGATIVE)
[2022-01-27] VITALS (7 sets, daily range): BP systolic 112–156; BP diastolic 57–77; PULSE 50–84; RESP 18–20; TEMP 36.7–37.1; O2SAT 96–99
[2022-01-27] MEDS: Heparin Sodium,Porcine 5,000 UNIT/ML VIAL 5000 UNIT SUBCUT ×3 (03:57→16:55)
[2022-01-27] MEDS: Omeprazole 20 MG CAPSULE.DR PO (06:16)
[2022-01-27] MEDS: HYDROmorphone HCl 0.5 MG/0.5 ML SYRINGE IVPUSH ×2 (06:16→16:13)
[2022-01-27 07:38] LABS: Anion Gap 20 (12-20); Blood Urea Nitrogen 81 mg/dL (9-16); Calcium 7.7 mg/dL (8.4-10.2); Carbon Dioxide 16 mmol/L (22-29); Chloride 104 mmol/L (96-108); Creatinine Clr Calc Pharmacy 9.9; Estimated Glomerular Filt Rate 6; Glucose Random 248 mg/dL (60-115); Potassium 4.5 mmol/L (3.3-5.1); Sodium 135 mmol/L (135-145)
[2022-01-27 07:50] LABS: Glucose, Whole Blood 211 mg/dL (60-115)
[2022-01-27] MEDS: Insulin Lispro 100 UNIT/ML 3 ML VIAL SUBCUT ×4 (09:05→21:13)
[2022-01-27] MEDS: Sennosides/Docusate Sodium TABLET 2 TAB PO ×2 (09:06→21:13)
[2022-01-27] MEDS: Cholecalciferol (Vitamin D3) 25 MCG TABLET 50 MCG PO (09:06)
[2022-01-27] MEDS: Aspirin 81 MG TAB.CHEW PO (09:06)
[2022-01-27] MEDS: Sodium Bicarbonate 650 MG TABLET 1300 MG PO ×2 (09:06→21:13)
[2022-01-27] MEDS: Cyanocobalamin (Vitamin B-12) 1,000 MCG TABLET 1000 MCG PO (09:07)
[2022-01-27] MEDS: Famotidine 20 MG TABLET PO (09:07)
[2022-01-27] MEDS: Torsemide 20 MG TABLET 40 MG PO ×2 (09:07→16:55)
[2022-01-27] MEDS: amLODIPine Besylate 10 MG TABLET PO (09:07)
[2022-01-27] MEDS: Atorvastatin Calcium 80 MG TABLET PO (09:07)
[2022-01-27] MEDS: carvediloL 12.5 MG TABLET 25 MG PO ×2 (09:07→21:13)
[2022-01-27] MEDS: Topiramate 25 MG TABLET PO (09:07)
[2022-01-27] MEDS: levETIRAcetam 500 MG TABLET PO (09:07)
[2022-01-27] MEDS: Gabapentin 100 MG CAPSULE PO ×3 (09:07→21:13)
[2022-01-27] MEDS: 0.9 % Sodium Chloride Flush 3 ML SYRINGE IVFLUSH ×2 (09:08→16:56)
[2022-01-27] MEDS: Acetaminophen 325 MG TABLET 650 MG PO (09:16)
--- NOTE | 2022-01-27 09:35 | HO.PM.IMPN ---
Subjective Subjective Date of Service: 01/27/22 Interval History: temp HD cath placed yesterday generalized edema Review of Systems Review of Systems: Yes all other systems are reviewed and are negative Physical Exam Vital Signs: Vital Signs: Last Vital Signs Temp 98.1 F 01/27/22 08:00 Pulse 50 01/27/22 08:00 Resp 20 01/27/22 08:00 BP 145/77 H 01/27/22 08:00 Pulse Ox 97 01/27/22 08:00 O2 Del Method 01/27/22 08:00 O2 Flow Rate 2 01/27/22 03:33 BMI result Body Mass Index 45.5 Gen: in no acute distress HEENT: sclera anicteric, moist mucus membranes Neck: supple, RIJ HD catheter Lungs: clear to auscultation bilaterally Heart: regular rate and rhythm, no murmurs Abd: soft, non-tender, non-distended, obese Ext: 2+ nonpitting LE edema Skin: warm/well-perfused Neuro: alert and oriented x3, no focal findings Psych: appropriate affect Objective Data Active Medications Acetaminophen (Acetaminophen 325 Mg Tablet) 650 mg PO Q6H PRN PRN Reason: Pain, Mild (Pain Scale 1-3) Last Admin: 01/27/22 09:16 Dose: 650 mg Documented By: RAFI Amlodipine Besylate (Amlodipine Besylate 10 Mg Tablet) 10 mg PO DAILY [facility]; Protocol Last Admin: 01/27/22 09:07 Dose: 10 mg Documented By: RAFI Aspirin (Aspirin 81 Mg Tab.Chew) 81 mg PO DAILY [facility] Last Admin: 01/27/22 09:06 Dose: 81 mg Documented By: RAFI Atorvastatin Calcium (Atorvastatin Calcium 80 Mg Tablet) 80 mg PO DAILY [facility] Last Admin: 01/27/22 09:07 Dose: 80 mg Documented By: RAFI Carvedilol (Carvedilol 12.5 Mg Tablet) 25 mg PO BID [facility]; Protocol Last Admin: 01/27/22 09:07 Dose: 25 mg Documented By: RAFI Cyanocobalamin (Cyanocobalamin (Vitamin B-12) 1,000 Mcg Tablet) 1,000 mcg PO DAILY [facility] Last Admin: 01/27/22 09:07 Dose: 1,000 mcg Documented By: RAFI Dextrose (Dextrose 50 % 25 Gm/50 Ml Syringe) 25 gm IVPUSH Q15M PRN; Protocol PRN Reason: per Hypoglycemia Standing Ord. Docusate Sodium (Docusate Sodium 100 Mg Capsule) 100 mg PO DAILY PRN PRN Reason: Constipation Famotidine (Famotidine 20 Mg Tablet) 20 mg PO DAILY [facility] Last Admin: 01/27/22 09:07 Dose: 20 mg Documented By: RAFI Gabapentin (Gabapentin 100 Mg Capsule) 100 mg PO TID [facility] Last Admin: 01/27/22 09:07 Dose: 100 mg Documented By: RAFI Glucose (Glucose Gel 15 Gm Gel..Gram.) 15 gm PO Q15M PRN; Protocol PRN Reason: per Hypoglycemia Standing Ord. Heparin Sodium (Porcine) (Heparin Sodium,Porcine 5,000 Unit/Ml Vial) 5,000 unit SUBCUT Q8H [facility] Last Admin: 01/27/22 09:06 Dose: 5,000 unit Documented By: RAFI Hydralazine HCl (Hydralazine Hcl 20 Mg/Ml Vial) 5 mg IVPUSH Q4H PRN; Protocol PRN Reason: sb>180 Hydrocortisone (Hydrocortisone 1 % Cream 28.35 Gm Tube) 1 appl TOPICAL BID PRN PRN Reason: Skin Irritation Last Admin: 01/24/22 11:41 Dose: 1 appl Documented By: THELMAARTBryan Hydromorphone HCl (Hydromorphone Hcl 0.5 Mg/0.5 Ml Syringe) 0.5 mg IVPUSH Q4H PRN; Protocol PRN Reason: Pain, Severe (Pain Scale 7-10) Last Admin: 01/27/22 06:16 Dose: 0.5 mg Documented By: FOSTEKVanessa Insulin Human Lispro (Insulin Lispro 100 Unit/Ml 3 Ml Vial) 0 unit SUBCUT QIDACHS [facility]; Protocol Last Admin: 01/27/22 09:05 Dose: 4 unit Documented By: RAFI Lactulose (Lactulose 20 Gm/30 Ml Solution) 10 gm PO DAILY PRN PRN Reason: Constipation Levetiracetam (Levetiracetam 500 Mg Tablet) 500 mg PO DAILY [facility] Last Admin: 01/27/22 09:07 Dose: 500 mg Documented By: RAFI Omeprazole (Omeprazole 20 Mg Capsule.) 20 mg PO DAILY@0630 [facility] Last Admin: 01/27/22 06:16 Dose: 20 mg Documented By: RENETTA Ondansetron HCl (Ondansetron Hcl 4 Mg/2 Ml Vial) 4 mg IVPUSH Q8H PRN PRN Reason: Nausea and Vomiting Last Admin: 01/24/22 09:55 Dose: 4 mg Documented By: FOGARTBryan Oxycodone HCl (Oxycodone Hcl Immed Release 5 Mg Tablet) 5 mg PO Q6H PRN PRN Reason: Pain, Severe (Pain Scale 7-10) Last Admin: 01/25/22 14:06 Dose: 5 mg Documented By: JOE Polyethylene Glycol (Polyethylene Glycol 3350 17 Gm Powd.Pack) 17 gm PO DAILY PRN PRN Reason: consternation Senna/Docusate Sodium (Sennosides/Docusate Sodium Tablet) 2 tab PO BID [facility] Last Admin: 01/27/22 09:06 Dose: 2 tab Documented By: RAFI Sodium Bicarbonate (Sodium Bicarbonate 650 Mg Tablet) 1,300 mg PO BID [facility] Last Admin: 01/27/22 09:06 Dose: 1,300 mg Documented By: RAFI Sodium Chloride (0.9 % Sodium Chloride Flush 3 Ml Syringe) 3 ml IVFLUSH [facility] Last Admin: 01/27/22 09:08 Dose: 3 ml Documented By: RAFI Topiramate (Topiramate 25 Mg Tablet) 25 mg PO DAILY [facility] Last Admin: 01/27/22 09:07 Dose: 25 mg Documented By: RAFI Torsemide (Torsemide 20 Mg Tablet) 40 mg PO BID@0800,1700 [facility]; Protocol Last Admin: 01/27/22 09:07 Dose: 40 mg Documented By: RAFI Vitamin D (Cholecalciferol (Vitamin D3) 25 Mcg Tablet) 50 mcg PO DAILY [facility] Last Admin: 01/27/22 09:06 Dose: 50 mcg Documented By: RAFI Labs CBC & Chem 7: 01/26/22 06:26 01/27/22 06:37 Labs: Laboratory Results - last 24 hr 01/26/22 01/26/22 01/26/22 11:20 14:00 16:43 Anion Gap Estim Creat Clear Calc Estimated GFR POC Glucose 188 H 168 H Random Glucose Calcium Stool Occult Blood COVID-19 (JODY) Negative COVID-19 Clin Com See Note 01/26/22 01/26/22 01/27/22 19:57 Unknown 06:37 Anion Gap 20 Estim Creat Clear Calc 9.9 Estimated GFR 6 POC Glucose 164 H Random Glucose 248 H Calcium 7.7 L Stool Occult Blood NEGATIVE COVID-19 (JODY) COVID-19 Clin Com 01/27/22 07:46 Anion Gap Estim Creat Clear Calc Estimated GFR POC Glucose 211 H Random Glucose Calcium Stool Occult Blood COVID-19 (JODY) COVID-19 Clin Com Assessment and Plan (1) CKD stage 5 due to type 2 diabetes mellitus: Status: Acute Plan d#5 56yo F with CKD5, biopsy-proven advanced DM neuropathy, uncontrolled HTN, DM2, anemia of CKD, sleep apnea not on CPAP # EMIL/CKD5 # metabolic acidosis - Nephro following. HD catheter placed 01/26/22 and to start HD today - continue sodium bicarbonate supplementation # leukocytosis - no localizing source of infection. recheck CBC in AM # hyperK, mild - resolved s/p SZC # uncontrolled HTN - increased amlodipine + carvedilol # anemia of CKD - epo per Nephro - transfused 1u pRBCs 01/24 with appropriate increase in Hb - FOBT # hypoCa - resolved (corrected for hypoalbuminemia) # sz disorder - continue levetiracetam + topiramate # HLD - statin # CAREY - CPAP at night # DM2, A1c 8.7 - continue correction-dose lispro # chronic back pain - oxycodone, gabapentin # morbid obesity - weight loss advised # VTE ppx: [facility] In my clinical judgment, the patient requires continued hospitalization for the following reasons: EMIL, HD initiation Quality Stroke Does the patient have a stroke diagnosis?: No VTE Prior VTE?: No VTE Risk Level:: Medical - moderate - high VTE Device Contraindication: Treatment Not Indicated VTE Drug Contraindication: N/A - Med Ordered
[2022-01-27 11:24] LABS: Glucose, Whole Blood 270 mg/dL (60-115)
--- NOTE | 2022-01-27 13:55 | P.PNNP_ITS ---
Subjective Subjective Date of Service: 01/28/22 Interval history: Temp HD cath placed yesterday generalized edema Physical Exam Vital Signs: Vital Signs: Last Vital Signs Temp 98.1 F 01/27/22 08:00 Pulse 50 01/27/22 08:00 Resp 20 01/27/22 08:00 BP 145/77 H 01/27/22 08:00 Pulse Ox 97 01/27/22 08:00 O2 Del Method 01/27/22 08:00 O2 Flow Rate 2 01/27/22 03:33 BMI result Body Mass Index 45.5 Const: General: cooperative, comfortable and no acute distress Chest: Chest palpation & inspection: normal inspection of the chest Resp: Effort & Inspection: normal respiratory effort Auscultation: clear to auscultation bilaterally Cardio: Jugular venous distension: no JVD Rate: regular rate GI: Inspection: Yes normal to inspection Auscultation: normal bowel sounds : General: Yes no CVA tenderness Back/Spine/Pelvis: Back: no CVA tenderness Extrem: Other: 2-3+ LE Edema Objective Data Labs CBC & Chem 7: 01/26/22 06:26 01/27/22 06:37 Labs: Laboratory Results - last 24 hr 01/26/22 01/26/22 01/26/22 14:00 16:43 19:57 Sodium Potassium Chloride Carbon Dioxide Anion Gap BUN Creatinine Estim Creat Clear Calc Estimated GFR POC Glucose 168 H 164 H Random Glucose Calcium Stool Occult Blood COVID-19 (JODY) Negative COVID-19 Clin Com See Note 01/26/22 01/27/22 01/27/22 Unknown 06:37 07:46 Sodium 135 Potassium 4.5 Chloride 104 Carbon Dioxide 16 L Anion Gap 20 BUN 81 H Creatinine 7.54 H* Estim Creat Clear Calc 9.9 Estimated GFR 6 POC Glucose 211 H Random Glucose 248 H Calcium 7.7 L Stool Occult Blood NEGATIVE COVID-19 (JODY) COVID-19 Clin Com 01/27/22 11:20 Sodium Potassium Chloride Carbon Dioxide Anion Gap BUN Creatinine Estim Creat Clear Calc Estimated GFR POC Glucose 270 H Random Glucose Calcium Stool Occult Blood COVID-19 (JODY) COVID-19 Clin Com Microbiology Microbiology Results: Microbiology 01/26/22 09:02 Blood - Venous Blood Culture - Preliminary No growth after 24 hours. 01/26/22 09:02 Blood - Venous Blood Culture - Preliminary No growth after 24 hours. Procedures Date of Service Date of Service: 01/27/22 Assessment & Plan Assessment and plan (1) Acute kidney injury superimposed on CKD: Status: Acute (2) Metabolic acidosis: Status: Acute (3) Hypertensive urgency: Status: Acute (4) Anemia: Status: Acute (5) CKD stage 5 due to type 2 diabetes mellitus: Status: Acute Plan 56-year-old female with past medical history of moderately progressive CKD (biopsy proven advanced diabetic nephropathy with severe features of hypert ensive disease), T2DM, HTN, nephrogenic anemia, sleep apnea not currently on CPAP who presents with abdominal pain and back pain (chronic). Nephrology inovlved to managed stigmata of advanced CKD. 1. CKD stage V Biopsy proven diabetic nephropathy with 60% global sclerosis and 70% interstitial fibrosis. Severe hypertensive disease ontop of this, with severe hyaline sclerosis. 2. Hypertensive Emergency LE edema 3. Metabolic acidosis related to low GFR 4. Nephrogenic Anemia Tsat 445 Ferritin 480 Iron 80 Plan: - DC Torsemide 40mg BID, so far UOP is stable - c/w coreg to 25mg BID - c/w amlodipine to 10mg - EPO 20,000u dosed 01/23 - NaBicarb 1300mg BID First HD today HD again tomorrow Will arrange for dialysis placement at [facility]. - waiting to hear back from coordinator Time Spent With Patient Time: Total time spent is greater than 50% in coordination of care (as documented) at patient's floor/unit and/or counseling patient: Progress Note: Quality Stroke Does the patient have a stroke diagnosis?: No
--- NOTE | 2022-01-27 15:23 | MHC.CM.PN ---
per rounds pt not ready for dc dc plan remanins home with resumption of servceis and new to dialysis
[2022-01-27 16:06] LABS: Glucose, Whole Blood 249 mg/dL (60-115)
[2022-01-27 19:40] LABS: Glucose, Whole Blood 247 mg/dL (60-115)
[2022-01-27] MEDS: oxyCODONE HCl Immed Release 5 MG TABLET PO (21:12)
[2022-01-28] VITALS (8 sets, daily range): BP systolic 96–140; BP diastolic 54–66; PULSE 70–86; RESP 18–19; TEMP 36.4–37.1; O2SAT 96–98
[2022-01-28] MEDS: HYDROmorphone HCl 0.5 MG/0.5 ML SYRINGE IVPUSH ×4 (00:04→21:58)
[2022-01-28] MEDS: Heparin Sodium,Porcine 5,000 UNIT/ML VIAL 5000 UNIT SUBCUT ×3 (00:05→16:40)
[2022-01-28] MEDS: hydrOXYzine HCL 10 MG TABLET PO (01:36)
[2022-01-28] MEDS: 0.9 % Sodium Chloride Flush 3 ML SYRINGE IVFLUSH ×4 (01:37→20:43)
[2022-01-28] MEDS: Omeprazole 20 MG CAPSULE.DR PO (05:51)
[2022-01-28] MEDS: Acetaminophen 325 MG TABLET 650 MG PO (08:32)
[2022-01-28 09:49] LABS: HBS Num1 4.61 mIU/mL (0-7.99); HBc Num1 0.04 S/CO (0.00-0.79); Hepatitis B Core Antibody Nonreactive (Nonreactive); Hepatitis B Surface Antigen Negative (Negative); ~Hepatitis B Surface Antibody NONREACTIVE (Nonreactive)
--- NOTE | 2022-01-28 10:20 | MHC.CM.PN ---
New HD will be at [facility] T//Sat in the AM.
--- NOTE | 2022-01-28 10:28 | PM.PNNEP ---
Subjective Subjective Date of Service: 02/09/22 Interval history: Seen during dialysis Temp HD cath placed 01/26/22 generalized edema Physical Exam Vital Signs: Vital Signs: Last Vital Signs Temp 98.7 F 01/27/22 23:36 Pulse 76 01/27/22 23:36 Resp 18 01/28/22 01:34 BP 112/57 L 01/27/22 23:36 Pulse Ox 99 01/27/22 23:36 O2 Del Method 01/27/22 23:36 O2 Flow Rate 2 01/27/22 03:33 BMI result Body Mass Index 45.5 Const: General: cooperative, comfortable and no acute distress Chest: Chest palpation & inspection: normal inspection of the chest Resp: Effort & Inspection: normal respiratory effort Auscultation: clear to auscultation bilaterally Cardio: Jugular venous distension: no JVD Rate: regular rate GI: Inspection: Yes normal to inspection Auscultation: normal bowel sounds : General: Yes no CVA tenderness Back/Spine/Pelvis: Back: no CVA tenderness Extrem: Other: 2-3+ LE Edema Objective Data Labs CBC & Chem 7: 02/05/22 06:31 02/05/22 06:31 Labs: Laboratory Results - last 24 hr 01/27/22 01/27/22 01/27/22 11:20 16:02 19:38 POC Glucose 270 H 249 H 247 H Microbiology Microbiology Results: Microbiology 01/26/22 09:02 Blood - Venous Blood Culture - Preliminary No growth after 24 hours. 01/26/22 09:02 Blood - Venous Blood Culture - Preliminary No growth after 24 hours. Procedures Date of Service Date of Service: 01/28/22 Assessment & Plan Assessment and plan (1) Acute kidney injury superimposed on CKD: Status: Acute (2) Metabolic acidosis: Status: Acute (3) Hypertensive urgency: Status: Acute (4) Anemia: Status: Acute (5) CKD stage 5 due to type 2 diabetes mellitus: Status: Acute Plan 56-year-old female with a l history of moderately progressive CKD (biopsy proven advanced diabetic nephropathy with severe features of hypertensive disease), T2DM, HTN, nephrogenic anemia, sleep apnea not currently on CPAP who presents with abdominal pain and back pain (chronic). Nephrology inovlved to managed stigmata of advanced CKD. 1. CKD stage V Biopsy proven diabetic nephropathy with 60% global sclerosis and 70% interstitial fibrosis. Severe hypertensive disease ontop of this, with severe hyaline sclerosis. 2. Hypertensive Emergency LE edema 3. Metabolic acidosis related to low GFR 4. Nephrogenic Anemia Tsat 445 Ferritin 480 Iron 80 Plan: - c/w coreg to 25mg BID - c/w amlodipine to 10mg - EPO 20,000u dosed 01/23 - NaBicarb 1300mg BID First HD 02/27 HD again02/28 Needs Permcath prior to DC Oou patient dialysis arranged at [facility]. - TTS @ 06:00 AM Spoke to at bedside Progress Note: Quality Stroke Does the patient have a stroke diagnosis?: No
[2022-01-28] MEDS: levETIRAcetam 500 MG TABLET PO (10:31)
[2022-01-28] MEDS: Cholecalciferol (Vitamin D3) 25 MCG TABLET 50 MCG PO (10:31)
[2022-01-28] MEDS: Sennosides/Docusate Sodium TABLET 2 TAB PO ×2 (10:31→20:41)
[2022-01-28] MEDS: Gabapentin 100 MG CAPSULE PO ×3 (10:31→20:41)
[2022-01-28] MEDS: Sodium Bicarbonate 650 MG TABLET 1300 MG PO ×2 (10:32→20:41)
[2022-01-28] MEDS: Topiramate 25 MG TABLET PO (10:32)
[2022-01-28] MEDS: Famotidine 20 MG TABLET PO (10:32)
[2022-01-28] MEDS: Aspirin 81 MG TAB.CHEW PO (10:32)
[2022-01-28] MEDS: Cyanocobalamin (Vitamin B-12) 1,000 MCG TABLET 1000 MCG PO (10:32)
[2022-01-28] MEDS: carvediloL 12.5 MG TABLET 25 MG PO ×2 (10:34→20:42)
[2022-01-28 11:18] LABS: Glucose, Whole Blood 145 mg/dL (60-115)
--- NOTE | 2022-01-28 11:18 | P.PNIM_ITS ---
Subjective Subjective Date of Service: 01/28/22 Interval History: Seen and examined this morning Follow-up for worsening CKD, hemodialysis started yesterday, 2nd session of hemodialysis this morning Seen in dialysis, denies shortness of breath, chest pain, dizziness, abdominal pain, nausea, vomiting Review of Systems Review of Systems: Yes all other systems are reviewed and are negative Constitutional Constitutional: Denies chills and Denies fever(s) ENT Ears, Nose, Mouth, and Throat: Denies dizziness Cardiovascular Cardiovascular: Denies chest pain, Denies palpitations and Denies dyspnea Respiratory Respiratory: Denies cough and Denies dyspnea Gastrointestinal Gastrointestinal: Denies abdominal pain, Denies diarrhea, Denies nausea and Denies vomiting Neurologic Neurologic: Denies dizziness Endocrine Endocrine: Denies palpitations Physical Exam Vital Signs: Vital Signs: Last Vital Signs Temp 98.4 F 01/28/22 11:14 Pulse 70 01/28/22 11:14 Resp 18 01/28/22 11:14 BP 96/54 L 01/28/22 11:14 Pulse Ox 98 01/28/22 11:14 O2 Del Method 01/28/22 11:14 O2 Flow Rate 2 01/27/22 03:33 BMI result Body Mass Index 45.5 Const: General: cooperative, no acute distress, alert and awake Nutritional Appearance: obese Orientation/consciousness: patient oriented x3 Chest: Other: Right side HD catheter present Resp: Effort & Inspection: normal respiratory effort and able to speak in complete sentences Auscultation: clear to auscultation bilaterally Cardio: Rate: regular rate Heart sounds: S1 normal heart sound present and S2 normal heart sound present GI: Inspection: No distended Palpation (GI): Soft to palpation and non tender Neuro: General: patient oriented x3 and CN's II-XI intact bilaterally Objective Data Active Medications Acetaminophen (Acetaminophen 325 Mg Tablet) 650 mg PO Q6H PRN PRN Reason: Pain, Mild (Pain Scale 1-3) Last Admin: 01/28/22 08:32 Dose: 650 mg Documented By: PENELOPE Amlodipine Besylate (Amlodipine Besylate 10 Mg Tablet) 10 mg PO DAILY [facility]; Protocol Last Admin: 01/28/22 10:44 Dose: Not Given Documented By: ROXY Non-Admin Reason: Physician Held Med Aspirin (Aspirin 81 Mg Tab.Chew) 81 mg PO DAILY [facility] Last Admin: 01/28/22 10:32 Dose: 81 mg Documented By: ROXY Atorvastatin Calcium (Atorvastatin Calcium 80 Mg Tablet) 80 mg PO DAILY [facility] Last Admin: 01/27/22 09:07 Dose: 80 mg Documented By: RAFI Carvedilol (Carvedilol 12.5 Mg Tablet) 25 mg PO BID [facility]; Protocol Last Admin: 01/28/22 10:34 Dose: 25 mg Documented By: ROXY Cyanocobalamin (Cyanocobalamin (Vitamin B-12) 1,000 Mcg Tablet) 1,000 mcg PO DAILY [facility] Last Admin: 01/28/22 10:32 Dose: 1,000 mcg Documented By: ROXY Dextrose (Dextrose 50 % 25 Gm/50 Ml Syringe) 25 gm IVPUSH Q15M PRN; Protocol PRN Reason: per Hypoglycemia Standing Ord. Docusate Sodium (Docusate Sodium 100 Mg Capsule) 100 mg PO DAILY PRN PRN Reason: Constipation Famotidine (Famotidine 20 Mg Tablet) 20 mg PO DAILY [facility] Last Admin: 01/28/22 10:32 Dose: 20 mg Documented By: ROXY Gabapentin (Gabapentin 100 Mg Capsule) 100 mg PO TID [facility] Last Admin: 01/28/22 10:31 Dose: 100 mg Documented By: ROXY Glucose (Glucose Gel 15 Gm Gel..Gram.) 15 gm PO Q15M PRN; Protocol PRN Reason: per Hypoglycemia Standing Ord. Heparin Sodium (Porcine) (Heparin Sodium,Porcine 5,000 Unit/Ml Vial) 5,000 unit SUBCUT Q8H [facility] Last Admin: 01/28/22 10:30 Dose: 5,000 unit Documented By: ROXY Hydralazine HCl (Hydralazine Hcl 20 Mg/Ml Vial) 5 mg IVPUSH Q4H PRN; Protocol PRN Reason: sb>180 Hydrocortisone (Hydrocortisone 1 % Cream 28.35 Gm Tube) 1 appl TOPICAL BID PRN PRN Reason: Skin Irritation Last Admin: 01/24/22 11:41 Dose: 1 appl Documented By: FOGARTB Hydromorphone HCl (Hydromorphone Hcl 0.5 Mg/0.5 Ml Syringe) 0.5 mg IVPUSH Q4H PRN; Protocol PRN Reason: Pain, Severe (Pain Scale 7-10) Last Admin: 01/28/22 05:55 Dose: 0.5 mg Documented By: DESIREE Insulin Human Lispro (Insulin Lispro 100 Unit/Ml 3 Ml Vial) 0 unit SUBCUT QIDACHS [facility]; Protocol Last Admin: 01/28/22 10:44 Dose: Not Given Documented By: ROXY Non-Admin Reason: Off unit: Dialysis Lactulose (Lactulose 20 Gm/30 Ml Solution) 10 gm PO DAILY PRN PRN Reason: Constipation Levetiracetam (Levetiracetam 500 Mg Tablet) 500 mg PO DAILY [facility] Last Admin: 01/28/22 10:31 Dose: 500 mg Documented By: ROXY Omeprazole (Omeprazole 20 Mg Capsule.Dr) 20 mg PO DAILY@0630 [facility] Last Admin: 01/28/22 05:51 Dose: 20 mg Documented By: DESIREE Ondansetron HCl (Ondansetron Hcl 4 Mg/2 Ml Vial) 4 mg IVPUSH Q8H PRN PRN Reason: Nausea and Vomiting Last Admin: 01/24/22 09:55 Dose: 4 mg Documented By: ANAIS Polyethylene Glycol (Polyethylene Glycol 3350 17 Gm Powd.Pack) 17 gm PO DAILY PRN PRN Reason: consternation Senna/Docusate Sodium (Sennosides/Docusate Sodium Tablet) 2 tab PO BID [facility] Last Admin: 01/28/22 10:31 Dose: 2 tab Documented By: ROXY Sodium Bicarbonate (Sodium Bicarbonate 650 Mg Tablet) 1,300 mg PO BID [facility] Last Admin: 01/28/22 10:32 Dose: 1,300 mg Documented By: ROXY Sodium Chloride (0.9 % Sodium Chloride Flush 3 Ml Syringe) [address] [facility] Last Admin: 01/28/22 10:35 Dose: 3 ml Documented By: ROXY Topiramate (Topiramate 25 Mg Tablet) 25 mg PO DAILY [facility] Last Admin: 01/28/22 10:32 Dose: 25 mg Documented By: ROXY Torsemide (Torsemide 20 Mg Tablet) 40 mg PO BID@0800,1700 [facility]; Protocol Last Admin: 01/28/22 10:43 Dose: Not Given Documented By: ROXY Non-Admin Reason: Physician Held Med Vitamin D (Cholecalciferol (Vitamin D3) 25 Mcg Tablet) 50 mcg PO DAILY [facility] Last Admin: 01/28/22 10:31 Dose: 50 mcg Documented By: ROXY Labs CBC & Chem 7: 01/26/22 06:26 01/27/22 06:37 Labs: Laboratory Results - last 24 hr 01/27/22 01/27/22 01/27/22 06:37 11:20 16:02 POC Glucose 270 H 249 H Hep Bs Antigen Negative Hep Bs Antibody NONREACTIVE Hep B Core Total Ab Nonreactive 01/27/22 19:38 POC Glucose 247 H Hep Bs Antigen Hep Bs Antibody Hep B Core Total Ab Microbiology Microbiology Results: Microbiology 01/26/22 09:02 Blood Culture - Preliminary Blood - Venous No growth after 48 hours. 01/26/22 09:02 Blood Culture - Preliminary Blood - Venous No growth after 48 hours. Assessment and Plan (1) CKD stage 5 due to type 2 diabetes mellitus: Status: Acute (2) Metabolic acidosis: Status: Acute Plan d#5 56yo F with CKD5, biopsy-proven advanced DM neuropathy, uncontrolled HTN, DM2, anemia of CKD, sleep apnea not on CPAP # EMIL/CKD5 # metabolic acidosis - Nephro following. HD catheter placed 01/26/22, first HD 01/27, second session today - continue sodium bicarbonate supplementation - plan for permanent HD catheter placement, hopefully tomorrow - has outpatient HD seat at [facility] , [place], Sa 6am # leukocytosis - no localizing source of infection - repeat CBC pending # hyperK, mild - resolved s/p SZC # uncontrolled HTN BP low after HD today -will d/c norvasc -continue carvedilol, torsemide # anemia of CKD - epo per Nephro - transfused 1u pRBCs 01/24 with appropriate increase in Hb - FOBT negative # hypoCa - resolved (corrected for hypoalbuminemia) # sz disorder - continue levetiracetam + topiramate # HLD - statin # CAREY - CPAP at night # DM2, A1c 8.7 - continue correction-dose lispro # chronic back pain - oxycodone, gabapentin # morbid obesity BMI 45.5 - weight loss advised # VTE ppx: [facility] attending - dr. Ram In my clinical judgment, the patient requires continued hospitalization for the following reasons: EMIL, HD initiation, BP monitoring Quality Stroke Does the patient have a stroke diagnosis?: No VTE Prior VTE?: No VTE Risk Level:: Medical - moderate - high VTE Device Contraindication: Treatment Not Indicated VTE Drug Contraindication: N/A - Med Ordered
[2022-01-28 12:03] LABS: Hematocrit 22.1 % (37.0-47.0); Hemoglobin 7.2 g/dl (12.0-16.0); Mean Corpuscular HGB Conc 32.6 g/dl (31.0-35.0); Mean Corpuscular Hemoglobin 27.4 pg (27.0-33.0); Mean Platelet Volume 9.7 fL (9.4-12.3); Platelet Count 226 X10*3/uL (160-400); Red Blood Count 2.63 X10*6/uL (4.20-5.50); Red Cell Distribution Width 16.8 % (11.0-16.0)
[2022-01-28 12:21] LABS: Anion Gap 13 (12-20); Blood Urea Nitrogen 17 mg/dL (9-16); Calcium 7.7 mg/dL (8.4-10.2); Carbon Dioxide 24 mmol/L (22-29); Chloride 98 mmol/L (96-108); Creatinine Clr Calc Pharmacy 27.9; Estimated Glomerular Filt Rate 18; Glucose Random 155 mg/dL (60-115); Potassium 3.4 mmol/L (3.3-5.1); Sodium 132 mmol/L (135-145)
[2022-01-28] MEDS: Atorvastatin Calcium 80 MG TABLET PO (13:17)
[2022-01-28] MEDS: Albumin Human 25 % 100 ML IV ×2 (13:17→14:21)
[2022-01-28 16:11] LABS: Glucose, Whole Blood 209 mg/dL (60-115)
[2022-01-28] MEDS: Insulin Lispro 100 UNIT/ML 3 ML VIAL SUBCUT ×2 (16:39→20:42)
[2022-01-28] MEDS: Torsemide 20 MG TABLET 40 MG PO (16:41)
[2022-01-28 20:15] LABS: Glucose, Whole Blood 261 mg/dL (60-115)
[2022-01-29] VITALS (9 sets, daily range): BP systolic 106–153; BP diastolic 57–80; PULSE 76–81; RESP 18–20; TEMP 36.3–38.1; O2SAT 94–95
[2022-01-29] MEDS: hydrOXYzine HCL 10 MG TABLET PO (02:32)
[2022-01-29] MEDS: HYDROmorphone HCl 0.5 MG/0.5 ML SYRINGE IVPUSH (02:33)
[2022-01-29 07:19] LABS: Glucose, Whole Blood 171 mg/dL (60-115)
[2022-01-29 07:35] LABS: Hematocrit 26.9 % (37.0-47.0); Hemoglobin 8.7 g/dl (12.0-16.0); Mean Corpuscular HGB Conc 32.3 g/dl (31.0-35.0); Mean Corpuscular Hemoglobin 27.8 pg (27.0-33.0); Mean Corpuscular Volume 85.9 fL (80.0-98.0); Mean Platelet Volume 10.2 fL (9.4-12.3); Platelet Count 251 X10*3/uL (160-400); Red Blood Count 3.13 X10*6/uL (4.20-5.50); Red Cell Distribution Width 16.7 % (11.0-16.0); White Blood Count 8.3 X10*3/uL (4.8-10.8)
[2022-01-29 08:09] LABS: Anion Gap 16 (12-20); Blood Urea Nitrogen 28 mg/dL (9-16); Calcium 8.4 mg/dL (8.4-10.2); Carbon Dioxide 26 mmol/L (22-29); Chloride 99 mmol/L (96-108); Creatinine Clr Calc Pharmacy 17.4; Estimated Glomerular Filt Rate 11; Glucose Random 181 mg/dL (60-115); Sodium 137 mmol/L (135-145)
[2022-01-29] MEDS: Sodium Bicarbonate 650 MG TABLET 1300 MG PO ×2 (08:51→22:25)
[2022-01-29] MEDS: carvediloL 12.5 MG TABLET 25 MG PO ×2 (08:52→22:25)
[2022-01-29] MEDS: Sennosides/Docusate Sodium TABLET 2 TAB PO (08:52)
[2022-01-29] MEDS: Gabapentin 100 MG CAPSULE PO ×3 (08:52→22:28)
[2022-01-29] MEDS: Topiramate 25 MG TABLET PO (08:52)
[2022-01-29] MEDS: Cyanocobalamin (Vitamin B-12) 1,000 MCG TABLET 1000 MCG PO (08:52)
[2022-01-29] MEDS: Famotidine 20 MG TABLET PO (08:52)
[2022-01-29] MEDS: Atorvastatin Calcium 80 MG TABLET PO (08:52)
[2022-01-29] MEDS: Cholecalciferol (Vitamin D3) 25 MCG TABLET 50 MCG PO (08:52)
[2022-01-29] MEDS: levETIRAcetam 500 MG TABLET PO (08:52)
[2022-01-29] MEDS: Torsemide 20 MG TABLET 40 MG PO ×2 (08:52→16:07)
[2022-01-29] MEDS: 0.9 % Sodium Chloride Flush 3 ML SYRINGE IVFLUSH ×3 (08:57→22:33)
[2022-01-29 11:23] LABS: Glucose, Whole Blood 178 mg/dL (60-115)
[2022-01-29] MEDS: Insulin Lispro 100 UNIT/ML 3 ML VIAL SUBCUT ×3 (11:40→22:31)
--- NOTE | 2022-01-29 12:40 | P.PNIM_ITS ---
Subjective Subjective Date of Service: 01/29/22 Interval History: Seen and examined this morning Follow-up for progression of CKD, received HD yesterday Status post 1 unit RBCs for anemia yesterday Low-grade fever, 100.5 overnight. No specific complaints today. No fever, chills, cough, shortness of breath, abdominal pain, diarrhea, dysuria Review of Systems Review of Systems: Yes all other systems are reviewed and are negative Constitutional Constitutional: Denies chills and Denies fever(s) ENT Ears, Nose, Mouth, and Throat: Denies dizziness Cardiovascular Cardiovascular: Denies chest pain, Denies palpitations and Denies dyspnea Respiratory Respiratory: Denies cough and Denies dyspnea Gastrointestinal Gastrointestinal: Denies abdominal pain, Denies diarrhea, Denies nausea and Denies vomiting Neurologic Neurologic: Denies dizziness Endocrine Endocrine: Denies palpitations Physical Exam Vital Signs: Vital Signs: Last Vital Signs Temp 97.7 F 01/29/22 11:02 Pulse 78 01/29/22 11:02 Resp 18 01/29/22 11:02 BP 137/80 01/29/22 11:02 Pulse Ox 95 01/29/22 11:02 O2 Del Method 01/29/22 11:02 O2 Flow Rate 2 01/27/22 03:33 FiO2 97 01/28/22 19:33 BMI result Body Mass Index 45.5 Const: General: cooperative, no acute distress, alert and awake Nutritional Appearance: obese Orientation/consciousness: patient oriented x3 Chest: Other: Right side HD catheter present Resp: Effort & Inspection: normal respiratory effort and able to speak in complete sentences Auscultation: clear to auscultation bilaterally Cardio: Rate: regular rate Heart sounds: S1 normal heart sound present and S2 normal heart sound present GI: Inspection: No distended Palpation (GI): Soft to palpation and nontender Neuro: General: patient oriented x3 and CN's II-XI intact bilaterally Objective Data Active Medications Acetaminophen (Acetaminophen 325 Mg Tablet) 650 mg PO Q6H PRN PRN Reason: Pain, Mild (Pain Scale 1-3) Last Admin: 01/28/22 08:32 Dose: 650 mg Documented By: PENELOPE Aspirin (Aspirin 81 Mg Tab.Chew) 81 mg PO DAILY JA Last Admin: 01/29/22 08:56 Dose: Not Given Documented By: ANAIS Non-Admin Reason: procedure today Atorvastatin Calcium (Atorvastatin Calcium 80 Mg Tablet) 80 mg PO DAILY [facility] Last Admin: 01/29/22 08:52 Dose: 80 mg Documented By: ANAIS Carvedilol (Carvedilol 12.5 Mg Tablet) 25 mg PO BID [facility] [place]; Protocol Last Admin: 01/29/22 08:52 Dose: 25 mg Documented By: ANAIS Cyanocobalamin (Cyanocobalamin (Vitamin B-12) 1,000 Mcg Tablet) 1,000 mcg PO DAILY [facility] [place] Last Admin: 01/29/22 08:52 Dose: 1,000 mcg Documented By: ANAIS Dextrose (Dextrose 50 % 25 Gm/50 Ml Syringe) 25 gm IVPUSH Q15M PRN; Protocol PRN Reason: per Hypoglycemia Standing Ord. Docusate Sodium (Docusate Sodium 100 Mg Capsule) 100 mg PO DAILY PRN PRN Reason: Constipation Famotidine (Famotidine 20 Mg Tablet) 20 mg PO DAILY [facility] [place] Last Admin: 01/29/22 08:52 Dose: 20 mg Documented By: ANAIS Gabapentin (Gabapentin 100 Mg Capsule) 100 mg PO TID [facility] [place] Last Admin: 01/29/22 08:52 Dose: 100 mg Documented By: ANAIS Glucose (Glucose Gel 15 Gm Gel..Gram.) 15 gm PO Q15M PRN; Protocol PRN Reason: per Hypoglycemia Standing Ord. Heparin Sodium (Porcine) (Heparin Sodium,Porcine 5,000 Unit/Ml Vial) 5,000 unit SUBCUT Q8H [facility] [place] Last Admin: 01/29/22 08:56 Dose: Not Given Documented By: ANAIS Non-Admin Reason: procedure today Hydralazine HCl (Hydralazine Hcl 20 Mg/Ml Vial) 5 mg IVPUSH Q4H PRN; Protocol PRN Reason: sb>180 Hydrocortisone (Hydrocortisone 1 % Cream 28.35 Gm Tube) 1 appl TOPICAL BID PRN PRN Reason: Skin Irritation Last Admin: 01/24/22 11:41 Dose: 1 appl Documented By: ANAIS Hydromorphone HCl (Hydromorphone Hcl 0.5 Mg/0.5 Ml Syringe) 0.5 mg IVPUSH Q4H PRN; Protocol PRN Reason: Pain, Severe (Pain Scale 7-10) Last Admin: 01/29/22 02:33 Dose: 0.5 mg Documented By: MARITA Insulin Human Lispro (Insulin Lispro 100 Unit/Ml 3 Ml Vial) 0 unit SUBCUT QIDACHS [facility] [place]; Protocol Last Admin: 01/29/22 11:40 Dose: 2 unit Documented By: ANAIS Lactulose (Lactulose 20 Gm/30 Ml Solution) 10 gm PO DAILY PRN PRN Reason: Constipation Levetiracetam (Levetiracetam 500 Mg Tablet) 500 mg PO DAILY [facility] [place] Last Admin: 01/29/22 08:52 Dose: 500 mg Documented By: ANAIS Omeprazole (Omeprazole 20 Mg Capsule.Dr) 20 mg PO DAILY@0630 [facility] [place] Last Admin: 01/29/22 05:53 Dose: Not Given Documented By: MARITA Non-Admin Reason: NPO Ondansetron HCl (Ondansetron Hcl 4 Mg/2 Ml Vial) 4 mg IVPUSH Q8H PRN PRN Reason: Nausea and Vomiting Last Admin: 01/24/22 09:55 Dose: 4 mg Documented By: ANAIS Polyethylene Glycol (Polyethylene Glycol 3350 17 Gm Powd.Pack) 17 gm PO DAILY PRN PRN Reason: consternation Senna/Docusate Sodium (Sennosides/Docusate Sodium Tablet) 2 tab PO BID [facility] [place] Last Admin: 01/29/22 08:52 Dose: 2 tab Documented By: ANAIS Sodium Bicarbonate (Sodium Bicarbonate 650 Mg Tablet) 1,300 mg PO BID [facility] [place] Last Admin: 01/29/22 08:51 Dose: 1,300 mg Documented By: ANAIS Sodium Chloride (0.9 % Sodium Chloride Flush 3 Ml Syringe) [facility] Last Admin: 01/29/22 08:57 Dose: 3 ml Documented By: ANAIS Topiramate (Topiramate 25 Mg Tablet) 25 mg PO DAILY [facility] [place] Last Admin: 01/29/22 08:52 Dose: 25 mg Documented By: ANAIS Torsemide (Torsemide 20 Mg Tablet) 40 mg PO BID@0800,1700 [facility] [place]; Protocol Last Admin: 01/29/22 08:52 Dose: 40 mg Documented By: ANAIS Vitamin D (Cholecalciferol (Vitamin D3) 25 Mcg Tablet) 50 mcg PO DAILY JA Last Admin: 01/29/22 08:52 Dose: 50 mcg Documented By: ANAIS Labs CBC & Chem 7: 01/29/22 06:46 01/29/22 06:46 Labs: Laboratory Results - last 24 hr 01/28/22 01/28/22 01/28/22 16:00 17:01 20:11 MCV MCH MCHC RDW Plt Count MPV Absolute Nucleated RBC Nucleated RBC % (auto) Anion Gap Estim Creat Clear Calc Estimated GFR POC Glucose 209 H 261 H Random Glucose Calcium Blood Type A Positive Antibody Screen NEGATIVE Crossmatch See Detail 01/29/22 01/29/22 01/29/22 06:46 06:46 07:00 MCV 85.9 MCH 27.8 MCHC 32.3 RDW 16.7 H Plt Count 251 MPV 10.2 Absolute Nucleated RBC 0.000 Nucleated RBC % (auto) 0.0 Anion Gap 16 Estim Creat Clear Calc 17.4 Estimated GFR 11 POC Glucose 171 H Random Glucose 181 H Calcium 8.4 D Blood Type Antibody Screen Crossmatch 01/29/22 11:00 MCV MCH MCHC RDW Plt Count MPV Absolute Nucleated RBC Nucleated RBC % (auto) Anion Gap Estim Creat Clear Calc Estimated GFR POC Glucose 178 H Random Glucose Calcium Blood Type Antibody Screen Crossmatch Microbiology Microbiology Results: Microbiology 01/26/22 09:02 Blood Culture - Preliminary Blood - Venous No growth after 48 hours. 01/26/22 09:02 Blood Culture - Preliminary Blood - Venous No growth after 48 hours. Assessment and Plan (1) CKD stage 5 due to type 2 diabetes mellitus: Status: Acute (2) Chronic anemia: Status: Acute Plan 56yo F with CKD5, biopsy-proven advanced DM neuropathy, uncontrolled HTN, DM2, anemia of CKD, sleep apnea not on CPAP # EMIL/CKD5 # metabolic acidosis - Nephro following. temp HD catheter placed 01/26/22, first HD 01/27, second session 01/28 - continue sodium bicarbonate supplementation - permcath ordered but unable to be placed today as patient had low grade fever x1 overnight, no source of infection at this time - will attempt again on tuesday - has outpatient HD seat at [facility] , [place], [place] 6am arranged upon discharge # leukocytosis leukocytosis resolved. low grade fever overnight, 100.5 no localizing source of infection -repeat CXR negative, repeat UA pending # hyperK, mild - resolved s/p SZC #HTN BP low after HD 01/28, improved with albumin -will d/c norvasc -continue carvedilol (increased this admission), torsemide # anemia of CKD - epo per Nephro - transfused 1u pRBCs 01/24, 01/28 with appropriate rise in H/H - FOBT negative # hypoCa - resolved (corrected for hypoalbuminemia) # sz disorder - continue levetiracetam + topiramate # HLD - statin # CAREY - CPAP at night # DM2, A1c 8.7 - continue correction-dose lispro # chronic back pain - oxycodone, gabapentin # morbid obesity BMI 45.5 - weight loss advised # VTE ppx: [facility]FH attending - dr. Amaya In my clinical judgment, the patient requires continued hospitalization for the following reasons: EMIL, HD initiation, BP monitoring Quality Stroke Does the patient have a stroke diagnosis?: No VTE Prior VTE?: No VTE Risk Level:: Medical - moderate - high VTE Device Contraindication: Treatment Not Indicated VTE Drug Contraindication: N/A - Med Ordered
--- NOTE | 2022-01-29 13:07 | MHC.CM.PN ---
per rounds pt has a fever nando cath unable to be placed at this time plan rem,aisha cobos with oupt dialysis
--- NOTE | 2022-01-29 13:14 | PM.PNNEP ---
Subjective Subjective Date of Service: 01/29/22 Interval history: Seen and examined Low-grade fever, 100.5 overnight no other complaints Physical Exam Vital Signs: Vital Signs: Last Vital Signs Temp 97.7 F 01/29/22 11:02 Pulse 78 01/29/22 11:02 Resp 18 01/29/22 11:02 BP 137/80 01/29/22 11:02 Pulse Ox 95 01/29/22 11:02 O2 Del Method 01/29/22 11:02 O2 Flow Rate 2 01/27/22 03:33 FiO2 97 01/28/22 19:33 BMI result Body Mass Index 45.5 Const: General: no acute distress HEENT: Head: Yes normocephalic and Yes atraumatic Neck: Neck: Yes supple Resp: Auscultation: clear to auscultation bilaterally Cardio: Heart sounds: S1 normal heart sound present and S2 normal heart sound present GI: Palpation (GI): Soft to palpation and nontender Extrem: General: Yes edema Objective Data Labs CBC & Chem 7: 01/29/22 06:46 01/29/22 06:46 Labs: Laboratory Results - last 24 hr 01/28/22 01/28/22 01/28/22 16:00 17:01 20:11 WBC RBC Hgb Hct MCV MCH MCHC RDW Plt Count MPV Absolute Nucleated RBC Nucleated RBC % (auto) Sodium Potassium Chloride Carbon Dioxide Anion Gap BUN Creatinine Estim Creat Clear Calc Estimated GFR POC Glucose 209 H 261 H Random Glucose Calcium Blood Type A Positive Antibody Screen NEGATIVE Crossmatch See Detail 01/29/22 01/29/22 01/29/22 06:46 06:46 07:00 WBC 8.3 RBC 3.13 L Hgb 8.7 L D Hct 26.9 L D MCV 85.9 MCH 27.8 MCHC 32.3 RDW 16.7 H Plt Count 251 MPV 10.2 Absolute Nucleated RBC 0.000 Nucleated RBC % (auto) 0.0 Sodium 137 Potassium 4.0 Chloride 99 Carbon Dioxide 26 Anion Gap 16 BUN 28 H D Creatinine 4.27 H* Estim Creat Clear Calc 17.4 Estimated GFR 11 POC Glucose 171 H Random Glucose 181 H Calcium 8.4 D Blood Type Antibody Screen Crossmatch 01/29/22 11:00 WBC RBC Hgb Hct MCV MCH MCHC RDW Plt Count MPV Absolute Nucleated RBC Nucleated RBC % (auto) Sodium Potassium Chloride Carbon Dioxide Anion Gap BUN Creatinine Estim Creat Clear Calc Estimated GFR POC Glucose 178 H Random Glucose Calcium Blood Type Antibody Screen Crossmatch Microbiology Microbiology Results: Microbiology 01/26/22 09:02 Blood - Venous Blood Culture - Preliminary No growth after 48 hours. 01/26/22 09:02 Blood - Venous Blood Culture - Preliminary No growth after 48 hours. 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
[2022-01-29 15:54] LABS: Glucose, Whole Blood 264 mg/dL (60-115)
[2022-01-29] MEDS: Heparin Sodium,Porcine 5,000 UNIT/ML VIAL 5000 UNIT SUBCUT (16:18)
--- NOTE | 2022-01-29 17:06 | PC.NURSE ---
report received from overnight RN. Critical creatinine value of 4.27 received at 0758, notified. Pt has permicath for dialysis, plans to get a HD catheter placed today. IR cancelled placement due to low grade fever overnight. Education given to pt about reason for changing the date of procedure, pt verbalized understanding. 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 Call dean within reach, safety precautions taken.
[2022-01-29 19:52] LABS: Appearance Urine Clear; Color Urine Yellow; Glucose Urine UA 500 mg/dL (Negative); Leukocyte Esterase Urine Negative (Negative); Nitrite Urine Negative (Negative); PH 7.5 (5.0-9.0); UMIC TRIGGER UACC YES; Urine Blood Small (1+) (Negative); Urine Ketones Negative (Negative); Urine Protein 300 (3+) mg/dL (Neg-Trace)
[2022-01-29 20:11] LABS: Bacteria Urine None Seen (None Seen); Hyaline Casts Urine 0-2 /LPF (0-2); RBC Urine 0-2 /HPF (0-2); Squamous Epithelial Cell Urine 0-2 /HPF (0-2); WBC Urine 0-5 /HPF (0-5)
[2022-01-29 20:13] LABS: Glucose, Whole Blood 253 mg/dL (60-115)
[2022-01-29] MEDS: Acetaminophen 325 MG TABLET 650 MG PO (22:23)
[2022-01-29] MEDS: oxyCODONE HCl Immed Release 5 MG TABLET PO (22:25)
[2022-01-30] VITALS (7 sets, daily range): BP systolic 96–165; BP diastolic 52–76; PULSE 61–88; RESP 16–18; TEMP 36.2–36.9; O2SAT 94–99
[2022-01-30] MEDS: Hydrocortisone 1 % Cream 28.35 GM TUBE 1 APPL TOPICAL (01:20)
[2022-01-30] MEDS: Heparin Sodium,Porcine 5,000 UNIT/ML VIAL 5000 UNIT SUBCUT ×3 (01:33→16:57)
[2022-01-30] MEDS: hydrOXYzine HCL 10 MG TABLET PO (01:33)
[2022-01-30] MEDS: Omeprazole 20 MG CAPSULE.DR PO (05:36)
[2022-01-30 06:37] LABS: Hematocrit 24.3 % (37.0-47.0); Mean Corpuscular HGB Conc 32.9 g/dl (31.0-35.0); Mean Corpuscular Hemoglobin 28.4 pg (27.0-33.0); Mean Corpuscular Volume 86.2 fL (80.0-98.0); Mean Platelet Volume 10.1 fL (9.4-12.3); Platelet Count 207 X10*3/uL (160-400); Red Blood Count 2.82 X10*6/uL (4.20-5.50); Red Cell Distribution Width 16.4 % (11.0-16.0); White Blood Count 5.8 X10*3/uL (4.8-10.8)
[2022-01-30 06:54] LABS: Anion Gap 14 (12-20); Blood Urea Nitrogen 26 mg/dL (9-16); Calcium 8.1 mg/dL (8.4-10.2); Carbon Dioxide 29 mmol/L (22-29); Chloride 99 mmol/L (96-108); Creatinine Clr Calc Pharmacy 21.3; Estimated Glomerular Filt Rate 14; Glucose Random 130 mg/dL (60-115); Potassium 3.2 mmol/L (3.3-5.1); Sodium 139 mmol/L (135-145)
[2022-01-30 07:25] LABS: Glucose, Whole Blood 119 mg/dL (60-115)
[2022-01-30] MEDS: Sodium Bicarbonate 650 MG TABLET 1300 MG PO ×2 (10:40→20:06)
[2022-01-30] MEDS: Cholecalciferol (Vitamin D3) 25 MCG TABLET 50 MCG PO (10:40)
[2022-01-30] MEDS: Topiramate 25 MG TABLET PO (10:44)
[2022-01-30] MEDS: Cyanocobalamin (Vitamin B-12) 1,000 MCG TABLET 1000 MCG PO (10:44)
[2022-01-30] MEDS: Gabapentin 100 MG CAPSULE PO ×3 (10:45→20:06)
[2022-01-30] MEDS: Aspirin 81 MG TAB.CHEW PO (10:45)
[2022-01-30] MEDS: levETIRAcetam 500 MG TABLET PO (10:45)
[2022-01-30] MEDS: Potassium Chloride ER 20 MEQ TAB.ER.PRT 40 MEQ PO (10:46)
[2022-01-30] MEDS: Famotidine 20 MG TABLET PO (10:46)
[2022-01-30] MEDS: carvediloL 12.5 MG TABLET 25 MG PO ×2 (10:46→20:05)
[2022-01-30] MEDS: 0.9 % Sodium Chloride Flush 3 ML SYRINGE IVFLUSH ×2 (10:46→16:59)
[2022-01-30] MEDS: Atorvastatin Calcium 80 MG TABLET PO (10:48)
[2022-01-30] MEDS: Torsemide 20 MG TABLET 40 MG PO (10:52)
[2022-01-30] MEDS: oxyCODONE HCl Immed Release 5 MG TABLET PO ×2 (11:03→20:10)
[2022-01-30] MEDS: ondansetron HCL 4 MG/2 ML VIAL IVPUSH (11:03)
[2022-01-30 11:42] LABS: Glucose, Whole Blood 278 mg/dL (60-115)
[2022-01-30] MEDS: Insulin Lispro 100 UNIT/ML 3 ML VIAL SUBCUT ×3 (12:11→20:04)
--- NOTE | 2022-01-30 12:30 | P.PNIM_ITS ---
Subjective Subjective Date of Service: 01/30/22 Interval History: Follow-up for progression of CKD, received HD yesterday Status post 1 unit RBCs for anemia yesterday Low-grade fever, 100.5 overnight. No specific complaints today. No fever, chills, cough, shortness of breath, abdominal pain, diarrhea, dysuria Review of Systems Review of Systems: Yes all other systems are reviewed and are negative Constitutional Constitutional: Denies chills and Denies fever(s) ENT Ears, Nose, Mouth, and Throat: Denies dizziness Cardiovascular Cardiovascular: Denies chest pain, Denies palpitations and Denies dyspnea Respiratory Respiratory: Denies cough and Denies dyspnea Gastrointestinal Gastrointestinal: Denies abdominal pain, Denies diarrhea, Denies nausea and Denies vomiting Neurologic Neurologic: Denies dizziness Endocrine Endocrine: Denies palpitations Physical Exam Vital Signs: Vital Signs: Last Vital Signs Temp 98.2 F 01/30/22 11:57 Pulse 61 01/30/22 11:57 Resp 16 01/30/22 11:57 BP 157/69 H 01/30/22 11:57 Pulse Ox 99 01/30/22 11:57 O2 Del Method 01/30/22 11:57 O2 Flow Rate 2 01/27/22 03:33 FiO2 98 01/29/22 19:13 BMI result Body Mass Index 45.5 Appearing in no acute distress Right neck Central cath lung sounds are clear to auscultation heart regular rate rhythm, clear S1, S2 positive bowel sounds, abdomen is soft, nontender neuro patient is alert x3, no focal deficits Objective Data Active Medications Acetaminophen (Acetaminophen 325 Mg Tablet) 650 mg PO Q6H PRN PRN Reason: Pain, Mild (Pain Scale 1-3) Last Admin: 01/29/22 22:23 Dose: 650 mg Documented By: DEVANTE Aspirin (Aspirin 81 Mg Tab.Chew) 81 mg PO DAILY [facility] Last Admin: 01/30/22 10:45 Dose: 81 mg Documented By: RAFI Atorvastatin Calcium (Atorvastatin Calcium 80 Mg Tablet) 80 mg PO DAILY [facility] Last Admin: 01/30/22 10:48 Dose: 80 mg Documented By: RAFI Carvedilol (Carvedilol 12.5 Mg Tablet) 25 mg PO BID [facility]; Protocol Last Admin: 01/30/22 10:46 Dose: 25 mg Documented By: RAFI Cyanocobalamin (Cyanocobalamin (Vitamin B-12) 1,000 Mcg Tablet) 1,000 mcg PO DAILY [facility] Last Admin: 01/30/22 10:44 Dose: 1,000 mcg Documented By: RAFI Dextrose (Dextrose 50 % 25 Gm/50 Ml Syringe) 25 gm IVPUSH Q15M PRN; Protocol PRN Reason: per Hypoglycemia Standing Ord. Diphenhydramine HCl (Diphenhydramine Hcl 25 Mg Capsule) 25 mg PO Q6H PRN PRN Reason: Itching Docusate Sodium (Docusate Sodium 100 Mg Capsule) 100 mg PO DAILY PRN PRN Reason: Constipation Famotidine (Famotidine 20 Mg Tablet) 20 mg PO DAILY [facility] Last Admin: 01/30/22 10:46 Dose: 20 mg Documented By: ARFI Gabapentin (Gabapentin 100 Mg Capsule) 100 mg PO TID [facility] Last Admin: 01/30/22 10:45 Dose: 100 mg Documented By: RAFI Glucose (Glucose Gel 15 Gm Gel..Gram.) 15 gm PO Q15M PRN; Protocol PRN Reason: per Hypoglycemia Standing Ord. Heparin Sodium (Porcine) (Heparin Sodium,Porcine 5,000 Unit/Ml Vial) 5,000 unit SUBCUT Q8H [facility] Last Admin: 01/30/22 10:46 Dose: 5,000 unit Documented By: RAFI Hydralazine HCl (Hydralazine Hcl 20 Mg/Ml Vial) 5 mg IVPUSH Q4H PRN; Protocol PRN Reason: sb>180 Hydrocortisone (Hydrocortisone 1 % Cream 28.35 Gm Tube) 1 appl TOPICAL BID PRN PRN Reason: Skin Irritation Last Admin: 01/30/22 01:20 Dose: 1 appl Documented By: DEVANTE Insulin Human Lispro (Insulin Lispro 100 Unit/Ml 3 Ml Vial) 0 unit SUBCUT Q IDACHS [facility]; Protocol Last Admin: 01/30/22 12:11 Dose: 6 unit Documented By: RAFI Lactulose (Lactulose 20 Gm/30 Ml Solution) 10 gm PO DAILY PRN PRN Reason: Constipation Levetiracetam (Levetiracetam 500 Mg Tablet) 500 mg PO DAILY [facility] Last Admin: 01/30/22 10:45 Dose: 500 mg Documented By: RAFI Omeprazole (Omeprazole 20 Mg Capsule.) 20 mg PO DAILY@0630 [facility] Last Admin: 01/30/22 05:36 Dose: 20 mg Documented By: DEVANTE Ondansetron HCl (Ondansetron Hcl 4 Mg/2 Ml Vial) 4 mg IVPUSH Q8H PRN PRN Reason: Nausea and Vomiting Last Admin: 01/30/22 11:03 Dose: 4 mg Documented By: RAFI Oxycodone HCl (Oxycodone Hcl Immed Release 5 Mg Tablet) 5 mg PO Q6H PRN PRN Reason: Pain, Moderate (Pain Scale 4-6 Last Admin: 01/30/22 11:03 Dose: 5 mg Documented By: RAFI Polyethylene Glycol (Polyethylene Glycol 3350 17 Gm Powd.Pack) 17 gm PO DAILY PRN PRN Reason: consternation Senna/Docusate Sodium (Sennosides/Docusate Sodium Tablet) 2 tab PO BID [facility] Last Admin: 01/30/22 10:52 Dose: Not Given Documented By: RAFI Non-Admin Reason: Patient Refused Sodium Bicarbonate (Sodium Bicarbonate 650 Mg Tablet) 1,300 mg PO BID [facility] Last Admin: 01/30/22 10:40 Dose: 1,300 mg Documented By: RAFI Sodium Chloride (0.9 % Sodium Chloride Flush 3 Ml Syringe) 3 ml IVFLUSH QSHIFT [facility] Last Admin: 01/30/22 10:46 Dose: 3 ml Documented By: RAFI Topiramate (Topiramate 25 Mg Tablet) 25 mg PO DAILY [facility] Last Admin: 01/30/22 10:44 Dose: 25 mg Documented By: RAFI Torsemide (Torsemide 20 Mg Tablet) 40 mg PO BID@0800,1700 [facility]; Protocol Last Admin: 01/30/22 10:52 Dose: 40 mg Documented By: RAFI Vitamin D (Cholecalciferol (Vitamin D3) 25 Mcg Tablet) 50 mcg PO DAILY [facility] Last Admin: 01/30/22 10:40 Dose: 50 mcg Documented By: RAFI Labs CBC & Chem 7: 01/30/22 06:24 01/30/22 06:24 Labs: Laboratory Results - last 24 hr 1001/29/22 01/29/22 15:45 19:41 20:10 MCV MCH MCHC RDW Plt Count MPV Absolute Nucleated RBC Nucleated RBC % (auto) Anion Gap Estim Creat Clear Calc Estimated GFR POC Glucose 264 H 253 H Random Glucose Calcium Urine Color Yellow Urine Appearance Clear Urine pH 7.5 Ur Specific [place] 1.010 Urine Protein 300 (3+) H Urine Glucose (UA) 500 H Urine Ketones Negative Urine Blood Small (1+) H Urine Nitrite Negative Ur Leukocyte Esterase Negative Urine RBC 0-2 Urine WBC 0-5 Ur Squamous Epith Cells 0-2 Urine Bacteria None Seen Hyaline Casts 0-2 01/30/22 01/30/22 01/30/22 06:24 06:24 07:20 MCV 86.2 MCH 28.4 MCHC 32.9 RDW 16.4 H Plt Count 207 MPV 10.1 Absolute Nucleated RBC 0.000 Nucleated RBC % (auto) 0.0 Anion Gap 14 Estim Creat Clear Calc 21.3 Estimated GFR 14 POC Glucose 119 H Random Glucose 130 H Calcium 8.1 L Urine Color Urine Appearance Urine pH Ur Specific [place] Urine Protein Urine Glucose (UA) Urine Ketones Urine Blood Urine Nitrite Ur Leukocyte Esterase Urine RBC Urine WBC Ur Squamous Epith Cells Urine Bacteria Hyaline Casts 01/30/22 11:21 MCV MCH MCHC RDW Plt Count MPV Absolute Nucleated RBC Nucleated RBC % (auto) Anion Gap Estim Creat Clear Calc Estimated GFR POC Glucose 278 H Random Glucose Calcium Urine Color Urine Appearance Urine pH Ur Specific [place] Urine Protein Urine Glucose (UA) Urine Ketones Urine Blood Urine Nitrite Ur Leukocyte Esterase Urine RBC Urine WBC Ur Squamous Epith Cells Urine Bacteria Hyaline Casts Assessment and Plan (1) CKD stage 5 due to type 2 diabetes mellitus: Status: Acute (2) Chronic anemia: Status: Acute Plan 56yo F with CKD5, biopsy-proven advanced DM neuropathy, uncontrolled HTN, DM2, anemia of CKD, sleep apnea not on CPAP EMIL/CKD5 metabolic acidosis Nephro following. temp HD catheter placed 01/26/22, first HD 01/27 continue sodium bicarbonate supplementation permcath ordered but unable to be placed today as patient had low grade fever x1 overnight, no source of infection at this time - will attempt again on tuesday has outpatient HD seat at [facility] , [place], [place] 6am arranged upon discharge leukocytosis leukocytosis resolved. low grade fever overnight, 100.3 no localizing source of infection repeat CXR negative, repeat UA neg hyperK, mild resolved HTN BP low after HD 01/28, improved with albumin will d/c norvasc continue carvedilol (increased this admission), torsemide anemia of CKD epo per Nephro transfused 1u pRBCs 01/24, 01/28 with appropriate rise in H/H FOBT negative hypoCa resolved (corrected for hypoalbuminemia) sz disorder continue levetiracetam + topiramate HLD statin CAREY CPAP at night DM2, A1c 8.7 sliding scale, ADA diet chronic back pain oxycodone, gabapentin morbid obesity BMI 45.5 Discussed importance of weight management as this may be contributing to worsening of other comorbidities VTE ppx: [facility] attending - dr. Montero Full code In my clinical judgment, the patient requires continued hospitalization for the following reasons: EMIL, HD initiation, BP monitoring Quality Stroke Does the patient have a stroke diagnosis?: No VTE Prior VTE?: No VTE Risk Level:: Medical - moderate - high VTE Device Contraindication: Treatment Not Indicated VTE Drug Contraindication: N/A - Med Ordered
--- NOTE | 2022-01-30 13:59 | PM.PNNEP ---
Subjective Subjective Date of Service: 01/30/22 Interval history: seen and examined had HD earlier complains of itching Physical Exam Vital Signs: Vital Signs: Last Vital Signs Temp 98.2 F 01/30/22 11:57 Pulse 61 01/30/22 11:57 Resp 16 01/30/22 11:57 BP 157/69 H 01/30/22 11:57 Pulse Ox 99 01/30/22 11:57 O2 Del Method 01/30/22 11:57 O2 Flow Rate 2 01/27/22 03:33 FiO2 98 01/29/22 19:13 BMI result Body Mass Index 45.5 Const: General: no acute distress HEENT: Head: Yes normocephalic and Yes atraumatic Neck: Neck: Yes supple Resp: Auscultation: clear to auscultation bilaterally Cardio: Heart sounds: S1 normal heart sound present and S2 normal heart sound present GI: Palpation (GI): Soft to palpation and nontender Extrem: General: Yes edema Objective Data Labs CBC & Chem 7: 01/30/22 06:24 01/30/22 06:24 Labs: Laboratory Results - last 24 hr 01/29/22 01/29/22 01/29/22 15:45 19:41 20:10 WBC RBC Hgb Hct MCV MCH MCHC RDW Plt Count MPV Absolute Nucleated RBC Nucleated RBC % (auto) Sodium Potassium Chloride Carbon Dioxide Anion Gap BUN Creatinine Estim Creat Clear Calc Estimated GFR POC Glucose 264 H 253 H Random Glucose Calcium Urine Color Yellow Urine Appearance Clear Urine pH 7.5 Ur Specific [place] 1.010 Urine Protein 300 (3+) H Urine Glucose (UA) 500 H Urine Ketones Negative Urine Blood Small (1+) H Urine Nitrite Negative Ur Leukocyte Esterase Negative Urine RBC 0-2 Urine WBC 0-5 Ur Squamous Epith Cells 0-2 Urine Bacteria None Seen Hyaline Casts 0-2 01/30/22 01/30/22 01/30/22 06:24 06:24 07:20 WBC 5.8 RBC 2.82 L Hgb 8.0 L Hct 24.3 L MCV 86.2 MCH 28.4 MCHC 32.9 RDW 16.4 H Plt Count 207 MPV 10.1 Absolute Nucleated RBC 0.000 Nucleated RBC % (auto) 0.0 Sodium 139 Potassium 3.2 L Chloride 99 Carbon Dioxide 29 Anion Gap 14 BUN 26 H Creatinine 3.50 H Estim Creat Clear Calc 21.3 Estimated GFR 14 POC Glucose 119 H Random Glucose 130 H Calcium 8.1 L Urine Color Urine Appearance Urine pH Ur Specific [place] Urine Protein Urine Glucose (UA) Urine Ketones Urine Blood Urine Nitrite Ur Leukocyte Esterase Urine RBC Urine WBC Ur Squamous Epith Cells Urine Bacteria Hyaline Casts 01/30/22 11:21 WBC RBC Hgb Hct MCV MCH MCHC RDW Plt Count MPV Absolute Nucleated RBC Nucleated RBC % (auto) Sodium Potassium Chloride Carbon Dioxide Anion Gap BUN Creatinine Estim Creat Clear Calc Estimated GFR POC Glucose 278 H Random Glucose Calcium Urine Color Urine Appearance Urine pH Ur Specific [place] Urine Protein Urine Glucose (UA) Urine Ketones Urine Blood Urine Nitrite Ur Leukocyte Esterase Urine RBC Urine WBC Ur Squamous Epith Cells Urine Bacteria Hyaline Casts Microbiology Microbiology Results: Microbiology 01/26/22 09:02 Blood - Venous Blood Culture - Preliminary No growth after 48 hours. 01/26/22 09:02 Blood - Venous Blood Culture - Preliminary No growth after 48 hours. Procedures Date of Service Date of Service: 01/30/22 Assessment & Plan Assessment and plan (1) CKD (chronic kidney disease) stage 5, GFR less than 15 ml/min: Status: Acute (2) Metabolic acidosis: Status: Acute (3) Anemia: Status: Acute Plan advanced CKD biopsy proven diabetic nephropathy with 60% global sclerosis and 70% interstitial fibrosis Severe hypertensive disease ontop of this, with severe hyaline scerosis commenced on dialysis has temporary dialysis catheter anemia due to CKD REC HD today optimize volume status dialysis tunnelled catheter on Tuesday CLAUS per protocol renal diet phosphate binders outpatient dialysis arranged at [place] dialysis unit tts1 Time Spent With Patient Time: Total time spent is greater than 50% in coordination of care (as documented) at patient's floor/unit and/or counseling patient: Progress Note: Quality Stroke Does the patient have a stroke diagnosis?: No
[2022-01-30] MEDS: diphenhydrAMINE HCL 25 MG CAPSULE PO ×2 (14:03→23:56)
[2022-01-30 16:10] LABS: Glucose, Whole Blood 209 mg/dL (60-115)
[2022-01-30 19:49] LABS: Glucose, Whole Blood 288 mg/dL (60-115)
[2022-01-30] MEDS: Acetaminophen 325 MG TABLET 650 MG PO (20:05)
[2022-01-30] MEDS: Sennosides/Docusate Sodium TABLET 2 TAB PO (20:06)
[2022-01-31] VITALS (7 sets, daily range): BP systolic 93–149; BP diastolic 51–70; PULSE 65–83; RESP 16–19; TEMP 35.7–37; O2SAT 94–98
[2022-01-31] MEDS: 0.9 % Sodium Chloride Flush 3 ML SYRINGE IVFLUSH ×4 (00:09→22:10)
[2022-01-31] MEDS: Heparin Sodium,Porcine 5,000 UNIT/ML VIAL 5000 UNIT SUBCUT ×3 (00:09→17:31)
[2022-01-31] MEDS: oxyCODONE HCl Immed Release 5 MG TABLET PO ×3 (04:27→22:09)
[2022-01-31] MEDS: Omeprazole 20 MG CAPSULE.DR PO (05:54)
[2022-01-31 07:29] LABS: Glucose, Whole Blood 201 mg/dL (60-115)
[2022-01-31] MEDS: carvediloL 12.5 MG TABLET 25 MG PO ×2 (08:43→22:09)
[2022-01-31] MEDS: Famotidine 20 MG TABLET PO (08:43)
[2022-01-31] MEDS: Cholecalciferol (Vitamin D3) 25 MCG TABLET 50 MCG PO (08:43)
[2022-01-31] MEDS: polyethylene glycoL 3350 17 GM POWD.PACK PO (08:43)
[2022-01-31] MEDS: Sodium Bicarbonate 650 MG TABLET 1300 MG PO ×2 (08:43→22:09)
[2022-01-31] MEDS: Atorvastatin Calcium 80 MG TABLET PO (08:44)
[2022-01-31] MEDS: levETIRAcetam 500 MG TABLET PO (08:44)
[2022-01-31] MEDS: diphenhydrAMINE HCL 25 MG CAPSULE PO ×2 (08:44→23:39)
[2022-01-31] MEDS: Topiramate 25 MG TABLET PO (08:44)
[2022-01-31] MEDS: Gabapentin 100 MG CAPSULE PO ×3 (08:44→22:09)
[2022-01-31] MEDS: Docusate Sodium 100 MG CAPSULE PO (08:44)
[2022-01-31] MEDS: Aspirin 81 MG TAB.CHEW PO (08:44)
[2022-01-31] MEDS: Cyanocobalamin (Vitamin B-12) 1,000 MCG TABLET 1000 MCG PO (08:44)
[2022-01-31] MEDS: Sennosides/Docusate Sodium TABLET 2 TAB PO ×2 (08:44→22:09)
[2022-01-31] MEDS: Torsemide 20 MG TABLET 40 MG PO ×2 (08:44→17:23)
[2022-01-31] MEDS: Insulin Lispro 100 UNIT/ML 3 ML VIAL SUBCUT ×3 (08:45→17:23)
[2022-01-31 09:00] LABS: Anion Gap 13 (12-20); Blood Urea Nitrogen 22 mg/dL (9-16); Calcium 7.9 mg/dL (8.4-10.2); Carbon Dioxide 29 mmol/L (22-29); Chloride 95 mmol/L (96-108); Creatinine Clr Calc Pharmacy 17.9; Estimated Glomerular Filt Rate 11; Glucose Random 214 mg/dL (60-115); Sodium 133 mmol/L (135-145)
--- NOTE | 2022-01-31 10:47 | PM.PNNEP ---
Subjective Subjective Date of Service: 01/31/22 Interval history: seen and examined had HD yesterday at bedside updated Physical Exam Vital Signs: Vital Signs: Last Vital Signs Temp 97.5 F 01/31/22 07:22 Pulse 71 01/31/22 07:22 Resp 18 01/31/22 07:22 BP 125/57 L 01/31/22 07:22 Pulse Ox 94 01/31/22 07:22 O2 Del Method 01/31/22 07:22 O2 Flow Rate 2 01/27/22 03:33 FiO2 98 01/29/22 19:13 BMI result Body Mass Index 45.5 Const: General: no acute distress HEENT: Head: Yes normocephalic and Yes atraumatic Neck: Neck: Yes supple Resp: Auscultation: clear to auscultation bilaterally Cardio: Heart sounds: S1 normal heart sound present and S2 normal heart sound present GI: Palpation (GI): Soft to palpation and nontender Extrem: General: Yes edema Objective Data Labs CBC & Chem 7: 01/30/22 06:24 01/31/22 08:15 Labs: Laboratory Results - last 24 hr 01/30/22 01/30/22 01/30/22 11:21 16:06 19:45 Sodium Potassium Chloride Carbon Dioxide Anion Gap BUN Creatinine Estim Creat Clear Calc Estimated GFR POC Glucose 278 H 209 H 288 H Random Glucose Calcium 01/31/22 01/31/22 07:25 08:15 Sodium 133 L Potassium 4.0 D Chloride 95 L Carbon Dioxide 29 Anion Gap 13 BUN 22 H Creatinine 4.15 H* Estim Creat Clear Calc 17.9 Estimated GFR 11 POC Glucose 201 H Random Glucose 214 H Calcium 7.9 L Microbiology Microbiology Results: Microbiology 01/26/22 09:02 Blood - Venous Blood Culture - Preliminary No growth after 48 hours. 01/26/22 09:02 Blood - Venous Blood Culture - Preliminary No growth after 48 hours. Procedures Date of Service Date of Service: 01/31/22 Assessment & Plan Assessment and plan (1) CKD (chronic kidney disease) stage 5, GFR less than 15 ml/min: Status: Acute (2) Metabolic acidosis: Status: Acute (3) Anemia: Status: Acute Plan s/p HD yesterday advanced CKD biopsy proven diabetic nephropathy with 60% global sclerosis and 70% interstitial fibrosis Severe hypertensive disease ontop of this, with severe hyaline scerosis commenced on dialysis has temporary dialysis catheter anemia due to CKD interested in home therapy discussed with her renal replacement therapy options REC HD on Tuesday dialysis tunnelled catheter on Tuesday CLAUS per protocol renal diet phosphate binders outpatient dialysis arranged at [place] dialysis unit tts1 Time Spent With Patient Time: Total time spent is greater than 50% in coordination of care (as documented) at patient's floor/unit and/or counseling patient: Progress Note: Quality Stroke Does the patient have a stroke diagnosis?: No
--- NOTE | 2022-01-31 10:57 | HO.PM.IMPN ---
Subjective Subjective Date of Service: 01/31/22 Interval History: Follow-up for progression of CKD, received HD yesterday feeling general itchiness No fever overnight Review of Systems Review of Systems: Yes all other systems are reviewed and are negative Constitutional Constitutional: Denies chills and Denies fever(s) ENT Ears, Nose, Mouth, and Throat: Denies dizziness Cardiovascular Cardiovascular: Denies chest pain, Denies palpitations and Denies dyspnea Respiratory Respiratory: Denies cough and Denies dyspnea Gastrointestinal Gastrointestinal: Denies abdominal pain, Denies diarrhea, Denies nausea and Denies vomiting Neurologic Neurologic: Denies dizziness Endocrine Endocrine: Denies palpitations Physical Exam Vital Signs: Vital Signs: Last Vital Signs Temp 97.5 F 01/31/22 07:22 Pulse 71 01/31/22 07:22 Resp 18 01/31/22 07:22 BP 125/57 L 01/31/22 07:22 Pulse Ox 94 01/31/22 07:22 O2 Del Method 01/31/22 07:22 O2 Flow Rate 2 01/27/22 03:33 FiO2 98 01/29/22 19:13 BMI result Body Mass Index 45.5 Appearing in no acute distress Right neck central line lung sounds are clear to auscultation heart regular rate rhythm, clear S1, S2 positive bowel sounds, abdomen is soft, nontender neuro patient is alert x3, no focal deficits Objective Data Active Medications Acetaminophen (Acetaminophen 325 Mg Tablet) 650 mg PO Q6H PRN PRN Reason: Pain, Mild (Pain Scale 1-3) Last Admin: 01/30/22 20:05 Dose: 650 mg Documented By: HIRAM Aspirin (Aspirin 81 Mg Tab.Chew) 81 mg PO DAILY [facility] Last Admin: 01/31/22 08:44 Dose: 81 mg Documented By: JOSE M Atorvastatin Calcium (Atorvastatin Calcium 80 Mg Tablet) 80 mg PO DAILY [facility] Last Admin: 01/31/22 08:44 Dose: 80 mg Documented By: JOSE M Carvedilol (Carvedilol 12.5 Mg Tablet) 25 mg PO BID [facility]; Protocol Last Admin: 01/31/22 08:43 Dose: 25 mg Documented By: JOSE M Cyanocobalamin (Cyanocobalamin (Vitamin B-12) 1,000 Mcg Tablet) 1,000 mcg PO DAILY [facility] Last Admin: 01/31/22 08:44 Dose: 1,000 mcg Documented By: JOSE M Dextrose (Dextrose 50 % 25 Gm/50 Ml Syringe) 25 gm IVPUSH Q15M PRN; Protocol PRN Reason: per Hypoglycemia Standing Ord. Diphenhydramine HCl (Diphenhydramine Hcl 25 Mg Capsule) 25 mg PO Q6H PRN PRN Reason: Itching Last Admin: 01/31/22 08:44 Dose: 25 mg Documented By: JOSE M Docusate Sodium (Docusate Sodium 100 Mg Capsule) 100 mg PO DAILY PRN PRN Reason: Constipation Last Admin: 01/31/22 08:44 Dose: 100 mg Documented By: JOSE M Famotidine (Famotidine 20 Mg Tablet) 20 mg PO DAILY [facility] Last Admin: 01/31/22 08:43 Dose: 20 mg Documented By: JOSE M Gabapentin (Gabapentin 100 Mg Capsule) 100 mg PO TID [facility] Last Admin: 01/31/22 08:44 Dose: 100 mg Documented By: JOSE M Glucose (Glucose Gel 15 Gm Gel..Gram.) 15 gm PO Q15M PRN; Protocol PRN Reason: per Hypoglycemia Standing Ord. Heparin Sodium (Porcine) (Heparin Sodium,Porcine 5,000 Unit/Ml Vial) 5,000 unit SUBCUT Q8H [facility] Last Admin: 01/31/22 08:45 Dose: 5,000 unit Documented By: JOSE M Hydralazine HCl (Hydralazine Hcl 20 Mg/Ml Vial) 5 mg IVPUSH Q4H PRN; Protocol PRN Reason: sb>180 Hydrocortisone (Hydrocortisone 1 % Cream 28.35 Gm Tube) 1 appl TOPICAL BID PRN PRN Reason: Skin Irritation Last Admin: 01/30/22 01:20 Dose: 1 appl Documented By: DEVANTE Insulin Human Lispro (Insulin Lispro 100 Unit/Ml 3 Ml Vial) 0 unit SUBCUT QIDACHS [facility]; Protocol Last Admin: 01/31/22 08:45 Dose: 4 unit Documented By: JOSE M Lactulose (Lactulose 20 Gm/30 Ml Solution) 10 gm PO DAILY PRN PRN Reason: Constipation Levetiracetam (Levetiracetam 500 Mg Tablet) 500 mg PO DAILY [facility] Last Admin: 01/31/22 08:44 Dose: 500 mg Documented By: JOSE M Omeprazole (Omeprazole 20 Mg Capsule.) 20 mg PO DAILY@0630 [facility] Last Admin: 01/31/22 05:54 Dose: 20 mg Documented By: BON Ondansetron HCl (Ondansetron Hcl 4 Mg/2 Ml Vial) 4 mg IVPUSH Q8H PRN PRN Reason: Nausea and Vomiting Last Admin: 01/30/22 11:03 Dose: 4 mg Documented By: RAFI Oxycodone HCl (Oxycodone Hcl Immed Release 5 Mg Tablet) 5 mg PO Q6H PRN PRN Reason: Pain, Moderate (Pain Scale 4-6 Last Admin: 01/31/22 04:27 Dose: 5 mg Documented By: BON Polyethylene Glycol (Polyethylene Glycol 3350 17 Gm Powd.Pack) 17 gm PO DAILY PRN PRN Reason: consternation Last Admin: 01/31/22 08:43 Dose: 17 gm Documented By: JOSE M Senna/Docusate Sodium (Sennosides/Docusate Sodium Tablet) 2 tab PO BID [facility] Last Admin: 01/31/22 08:44 Dose: 2 tab Documented By: JOSE M Sodium Bicarbonate (Sodium Bicarbonate 650 Mg Tablet) 1,300 mg PO BID [facility] Last Admin: 01/31/22 08:43 Dose: 1,300 mg Documented By: JOSE M Sodium Chloride (0.9 % Sodium Chloride Flush 3 Ml Syringe) [address] [facility] Last Admin: 01/31/22 08:45 Dose: 3 ml Documented By: JOSE M Topiramate (Topiramate 25 Mg Tablet) 25 mg PO DAILY [facility] Last Admin: 01/31/22 08:44 Dose: 25 mg Documented By: JOSE M Torsemide (Torsemide 20 Mg Tablet) 40 mg PO BID@0800,1700 [facility]; Protocol Last Admin: 01/31/22 08:44 Dose: 40 mg Documented By: JOSE M Vitamin D (Cholecalciferol (Vitamin D3) 25 Mcg Tablet) 50 mcg PO DAILY [facility] Last Admin: 01/31/22 08:43 Dose: 50 mcg Documented By: JOSE M Labs CBC & Chem 7: 01/30/22 06:24 01/31/22 08:15 Labs: Laboratory Results - last 24 hr 01/30/22 01/30/22 01/30/22 11:21 16:06 19:45 Anion Gap Estim Creat Clear Calc Estimated GFR POC Glucose 278 H 209 H 288 H Random Glucose Calcium 01/31/22 01/31/22 07:25 08:15 Anion Gap 13 Estim Creat Clear Calc 17.9 Estimated GFR 11 POC Glucose 201 H Random Glucose 214 H Calcium 7.9 L Assessment and Plan (1) CKD stage 5 due to type 2 diabetes mellitus: Status: Acute (2) Chronic anemia: Status: Acute Plan 56yo F with CKD5, biopsy-proven advanced DM neuropathy, uncontrolled HTN, DM2, anemia of CKD, sleep apnea not on CPAP EMIL/CKD5 Nephro following. temp HD catheter placed 01/26/22, first HD 01/27 continue sodium bicarbonate supplementation has outpatient HD seat at [facility] Tu, [place], Sa 6am arranged upon discharge Plan for permacath placement in am as long as no further fevers leukocytosis leukocytosis resolved. low grade fevers resolved no localizing source of infection repeat CXR negative, repeat UA neg hyperK, mild resolved HTN BP low after HD 01/28, improved with albumin will d/c norvasc continue carvedilol (increased this admission), torsemide anemia of CKD epo per Nephro transfused 1u pRBCs 01/24, 01/28 with appropriate rise in H/H FOBT negative hypoCa resolved (corrected for hypoalbuminemia) sz disorder continue levetiracetam + topiramate HLD statin CAREY CPAP at night DM2, A1c 8.7 sliding scale, ADA diet chronic back pain oxycodone, gabapentin morbid obesity BMI 45.5 Discussed importance of weight management as this may be contributing to worsening of other comorbidities VTE ppx: UFH attending - dr. Montero Full code In my clinical judgment, the patient requires continued hospitalization for the following reasons: EMIL, HD initiation, BP monitoring Quality Stroke Does the patient have a stroke diagnosis?: No VTE Prior VTE?: No VTE Risk Level:: Medical - moderate - high VTE Device Contraindication: Treatment Not Indicated VTE Drug Contraindication: N/A - Med Ordered
[2022-01-31 11:30] LABS: Glucose, Whole Blood 203 mg/dL (60-115)
[2022-01-31 16:48] LABS: Glucose, Whole Blood 201 mg/dL (60-115)
[2022-01-31] MEDS: Hydrocortisone 1 % Cream 28.35 GM TUBE 1 APPL TOPICAL (17:28)
[2022-01-31 20:44] LABS: Glucose, Whole Blood 147 mg/dL (60-115)
[2022-02-01] VITALS (7 sets, daily range): BP systolic 97–149; BP diastolic 53–65; PULSE 67–84; RESP 18–20; TEMP 35.7–36.9; O2SAT 94–100
[2022-02-01] MEDS: Omeprazole 20 MG CAPSULE.DR PO (06:38)
[2022-02-01] MEDS: diphenhydrAMINE HCL 25 MG CAPSULE PO ×2 (06:39→21:20)
[2022-02-01 07:10] LABS: Anion Gap 16 (12-20); Blood Urea Nitrogen 31 mg/dL (9-16); Carbon Dioxide 27 mmol/L (22-29); Chloride 92 mmol/L (96-108); Creatinine Clr Calc Pharmacy 14.7; Estimated Glomerular Filt Rate 9; Glucose Random 160 mg/dL (60-115); Potassium 4.7 mmol/L (3.3-5.1); Sodium 130 mmol/L (135-145)
[2022-02-01 07:20] LABS: Glucose, Whole Blood 154 mg/dL (60-115)
[2022-02-01] MEDS: Insulin Lispro 100 UNIT/ML 3 ML VIAL SUBCUT ×4 (07:25→21:04)
[2022-02-01] MEDS: Cholecalciferol (Vitamin D3) 25 MCG TABLET 50 MCG PO (07:52)
[2022-02-01] MEDS: Atorvastatin Calcium 80 MG TABLET PO (07:53)
[2022-02-01] MEDS: Torsemide 20 MG TABLET 40 MG PO ×2 (07:53→16:25)
[2022-02-01] MEDS: Aspirin 81 MG TAB.CHEW PO (07:53)
[2022-02-01] MEDS: Sodium Bicarbonate 650 MG TABLET 1300 MG PO ×2 (07:53→21:04)
[2022-02-01] MEDS: carvediloL 12.5 MG TABLET 25 MG PO ×2 (07:54→21:03)
[2022-02-01] MEDS: 0.9 % Sodium Chloride Flush 3 ML SYRINGE IVFLUSH ×2 (07:54→16:25)
[2022-02-01] MEDS: levETIRAcetam 500 MG TABLET PO (07:54)
[2022-02-01] MEDS: Sennosides/Docusate Sodium TABLET 2 TAB PO ×2 (07:54→21:04)
[2022-02-01] MEDS: Cyanocobalamin (Vitamin B-12) 1,000 MCG TABLET 1000 MCG PO (07:54)
[2022-02-01] MEDS: Gabapentin 100 MG CAPSULE PO ×3 (07:55→21:04)
[2022-02-01] MEDS: Topiramate 25 MG TABLET PO (07:55)
[2022-02-01] MEDS: Famotidine 20 MG TABLET PO (07:55)
[2022-02-01] MEDS: Heparin Sodium,Porcine 5,000 UNIT/ML VIAL 5000 UNIT SUBCUT (07:55)
--- NOTE | 2022-02-01 10:23 | HO.PM.IMPN ---
Subjective Subjective Date of Service: 02/01/22 <Micheline Arciniega NP - Last Filed: 02/01/22 10:28> 02/02/22 <Ben Cox MD - Last Filed: 02/02/22 08:45> Interval History: Follow-up for progression of CKD, received HD yesterday Itchiness is improving Concern over having dialysis at home which she reports was told to her by the engineering recruiter, nephrology note does not reflect this No fever overnight <Micheline Arciniega NP - Last Filed: 02/01/22 10:28> Review of Systems Review of Systems: Yes all other systems are reviewed and are negative <Micheline Arciniega NP - Last Filed: 02/01/22 10:28> Constitutional Constitutional: Denies chills and Denies fever(s) <Micheline Arciniega NP - Last Filed: 02/01/22 10:28> ENT Ears, Nose, Mouth, and Throat: Denies dizziness <Micheline Arciniega NP - Last Filed: 02/01/22 10:28> Cardiovascular Cardiovascular: Denies chest pain, Denies palpitations and Denies dyspnea <Micheline Arciniega NP - Last Filed: 02/01/22 10:28> Respiratory Respiratory: Denies cough and Denies dyspnea <Micheline Arciniega NP - Last Filed: 02/01/22 10:28> Gastrointestinal Gastrointestinal: Denies abdominal pain, Denies diarrhea, Denies nausea and Denies vomiting <Micheline Arciniega NP - Last Filed: 02/01/22 10:28> Neurologic Neurologic: Denies dizziness <Micheline Arciniega NP - Last Filed: 02/01/22 10:28> Endocrine Endocrine: Denies palpitations <Micheline Arciniega NP - Last Filed: 02/01/22 10:28> Physical Exam Vital Signs: Vital Signs: Last Vital Signs Temp 97.1 F 02/01/22 08:32 Pulse 78 02/01/22 07:19 Resp 20 02/01/22 07:19 BP 97/59 L 02/01/22 07:19 Pulse Ox 94 02/01/22 07:19 O2 Del Method 02/01/22 07:19 O2 Flow Rate 2 01/27/22 03:33 FiO2 98 01/29/22 19:13 BMI result Body Mass Index 45.5 <Micheline Arciniega NP - Last Filed: 02/01/22 10:28> Appearing in no acute distress lung sounds are clear to auscultation heart regular rate rhythm, clear S1, S2 positive bowel sounds, abdomen is soft, nontender neuro patient is alert x3, no focal deficits Temporary dialysis catheter <Micheline Arciniega NP - Last Filed: 02/01/22 10:28> Objective Data Active Medications Acetaminophen (Acetaminophen 325 Mg Tablet) 650 mg PO Q6H PRN PRN Reason: Pain, Mild (Pain Scale 1-3) Last Admin: 01/30/22 20:05 Dose: 650 mg Documented By: HIRAM Aspirin (Aspirin 81 Mg Tab.Chew) 81 mg PO DAILY [facility] Last Admin: 02/01/22 07:53 Dose: 81 mg Documented By: GINETTE Atorvastatin Calcium (Atorvastatin Calcium 80 Mg Tablet) 80 mg PO DAILY [facility] Last Admin: 02/01/22 07:53 Dose: 80 mg Documented By: GINETTE Carvedilol (Carvedilol 12.5 Mg Tablet) 25 mg PO BID [facility]; Protocol Last Admin: 02/01/22 07:54 Dose: 25 mg Documented By: GINETTE Cyanocobalamin (Cyanocobalamin (Vitamin B-12) 1,000 Mcg Tablet) 1,000 mcg PO DAILY [facility] Last Admin: 02/01/22 07:54 Dose: 1,000 mcg Documented By: GINETTE Dextrose (Dextrose 50 % 25 Gm/50 Ml Syringe) 25 gm IVPUSH Q15M PRN; Protocol PRN Reason: per Hypoglycemia Standing Ord. Diphenhydramine HCl (Diphenhydramine Hcl 25 Mg Capsule) 25 mg PO Q6H PRN PRN Reason: Itching Last Admin: 02/01/22 06:39 Dose: 25 mg Documented By: CHRISTIANO Docusate Sodium (Docusate Sodium 100 Mg Capsule) 100 mg PO DAILY PRN PRN Reason: Constipation Last Admin: 01/31/22 08:44 Dose: 100 mg Documented By: JOSE M Famotidine (Famotidine 20 Mg Tablet) 20 mg PO DAILY [facility] Last Admin: 02/01/22 07:55 Dose: 20 mg Documented By: GINETTE Gabapentin (Gabapentin 100 Mg Capsule) 100 mg PO TID [facility] Last Admin: 02/01/22 07:55 Dose: 100 mg Documented By: GINETTE Glucose (Glucose Gel 15 Gm Gel..Gram.) 15 gm PO Q15M PRN; Protocol PRN Reason: per Hypoglycemia Standing Ord. Heparin Sodium (Porcine) (Heparin Sodium,Porcine 5,000 Unit/Ml Vial) 5,000 unit SUBCUT Q8H [facility] Last Admin: 02/01/22 07:55 Dose: 5,000 unit Documented By: GINETTE Hydralazine HCl (Hydralazine Hcl 20 Mg/Ml Vial) 5 mg IVPUSH Q4H PRN; Protocol PRN Reason: sb>180 Hydrocortisone (Hydrocortisone 1 % Cream 28.35 Gm Tube) 1 appl TOPICAL BID PRN PRN Reason: Skin Irritation Last Admin: 01/31/22 17:28 Dose: 1 appl Documented By: JOSE M Insulin Human Lispro (Insulin Lispro 100 Unit/Ml 3 Ml Vial) 0 unit SUBCUT QIDACHS [facility]; Protocol Last Admin: 02/01/22 07:25 Dose: 2 unit Documented By: GINETTE Lactulose (Lactulose 20 Gm/30 Ml Solution) 10 gm PO DAILY PRN PRN Reason: Constipation Levetiracetam (Levetiracetam 500 Mg Tablet) 500 mg PO DAILY [facility] Last Admin: 02/01/22 07:54 Dose: 500 mg Documented By: GINETTE Omeprazole (Omeprazole 20 Mg Capsule.Dr) 20 mg PO DAILY@0630 [facility] Last Admin: 02/01/22 06:38 Dose: 20 mg Documented By: CHRISTIANO Ondansetron HCl (Ondansetron Hcl 4 Mg/2 Ml Vial) 4 mg IVPUSH Q8H PRN PRN Reason: Nausea and Vomiting Last Admin: 01/30/22 11:03 Dose: 4 mg Documented By: RAFI Oxycodone HCl (Oxycodone Hcl Immed Release 5 Mg Tablet) 5 mg PO Q6H PRN PRN Reason: Pain, Moderate (Pain Scale 4-6 Last Admin: 01/31/22 22:09 Dose: 5 mg Documented By: CHRISTIANO Polyethylene Glycol (Polyethylene Glycol 3350 17 Gm Powd.Pack) 17 gm PO DAILY PRN PRN Reason: consternation Last Admin: 01/31/22 08:43 Dose: 17 gm Documented By: JOSE M Senna/Docusate Sodium (Sennosides/Docusate Sodium Tablet) 2 tab PO BID [facility] Last Admin: 02/01/22 07:54 Dose: 2 tab Documented By: GINETTE Sodium Bicarbonate (Sodium Bicarbonate 650 Mg Tablet) 1,300 mg PO BID [facility] Last Admin: 02/01/22 07:53 Dose: 1,300 mg Documented By: GINETTE Sodium Chloride (0.9 % Sodium Chloride Flush 3 Ml Syringe) 3 ml IVFLUSH QSHIFT [facility] Last Admin: 02/01/22 07:54 Dose: 3 ml Documented By: GINETTE Topiramate (Topiramate 25 Mg Tablet) 25 mg PO DAILY [facility] Last Admin: 02/01/22 07:55 Dose: 25 mg Documented By: GINETTE Torsemide (Torsemide 20 Mg Tablet) 40 mg PO BID@0800,1700 [facility]; Protocol Last Admin: 02/01/22 07:53 Dose: 40 mg Documented By: GINETTE Vitamin D (Cholecalciferol (Vitamin D3) 25 Mcg Tablet) 50 mcg PO DAILY [facility] Last Admin: 02/01/22 07:52 Dose: 50 mcg Documented By: GINETTE <Micheline Arciniega NP - Last Filed: 02/01/22 10:28> Labs CBC & Chem 7: : 01/30/22 06:24 02/01/22 16:33 <Micheline Arciniega NP - Last Filed: 02/01/22 10:28> Labs: Laboratory Results - last 24 hr 01/31/22 01/31/22 01/31/22 11:26 16:38 20:39 Anion Gap Estim Creat Clear Calc Estimated GFR POC Glucose 203 H 201 H 147 H Random Glucose Calcium 02/01/22 02/01/22 06:10 07:11 Anion Gap 16 Estim Creat Clear Calc 14.7 Estimated GFR 9 POC Glucose 154 H Random Glucose 160 H Calcium 8.0 L <Micheline Arciniega NP - Last Filed: 02/01/22 10:28> Microbiology Microbiology Results: Microbiology 01/26/22 09:02 Blood Culture - Final Blood - Venous No growth after 5 days. 01/26/22 09:02 Blood Culture - Final Blood - Venous No growth after 5 days. <Micheline Arciniega NP - Last Filed: 02/01/22 10:28> Assessment and Plan (1) CKD stage 5 due to type 2 diabetes mellitus: Status: Acute <Micheline Arciniega NP - Last Filed: 02/01/22 10:28> (2) Chronic anemia: Status: Acute <Micheline Arciniega NP - Last Filed: 02/01/22 10:28> Assessment and Plan: 56yo F with CKD5, biopsy-proven advanced DM neuropathy, uncontrolled HTN, DM2, anemia of CKD, sleep apnea not on CPAP EMIL/CKD5 Nephro following. temp HD catheter placed 01/26/22, first HD 01/27 continue sodium bicarbonate supplementation has outpatient HD seat at [facility] Tu, [place], [place] 6am arranged upon discharge Plan for permacath placement today leukocytosis resolved. low grade fevers resolved no localizing source of infection repeat CXR negative, repeat UA neg Hyponatremia. Sodium 130 Gentle IV fluids x1 L Repeat BMP this evening hyperK, mild resolved HTN BP low after HD 01/28, improved with albumin will d/c norvasc continue carvedilol (increased this admission), torsemide anemia of CKD epo per Nephro transfused 1u pRBCs 01/24, 01/28 with appropriate rise in H/H FOBT negative hypoCa resolved (corrected for hypoalbuminemia) Seizure disorder. No seizure activity during this admission continue levetiracetam + topiramate HLD statin CAREY CPAP at night DM2, A1c 8.7 sliding scale, ADA diet chronic back pain oxycodone, gabapentin morbid obesity BMI 45.5 Discussed importance of weight management as this may be contributing to worsening of other comorbidities VTE ppx: UFH attending - dr. Cox Full code In my clinical judgment, the patient requires continued hospitalization for the following reasons: EMIL, HD initiation, BP monitoring <Micheline Arciniega NP - Last Filed: 02/01/22 10:28> Quality Stroke Does the patient have a stroke diagnosis?: No <Micheline Arciniega NP - Last Filed: 02/01/22 10:28> VTE Prior VTE?: No <Micheline Arciniega NP - Last Filed: 02/01/22 10:28> VTE Risk Level:: Medical - moderate - high <ALEAH Huizar Last Filed: 02/01/22 10:28> VTE Device Contraindication: Treatment Not Indicated <Micheline Arciniega NP - Last Filed: 02/01/22 10:28> VTE Drug Contraindication: N/A - Med Ordered <Micheline Arciniega NP - Last Filed: 02/01/22 10:28>
[2022-02-01] MEDS: 0.9 % Sodium Chloride 1,000 ML 50 ML IVCONT (10:36)
[2022-02-01 11:05] LABS: Glucose, Whole Blood 181 mg/dL (60-115)
[2022-02-01 15:38] LABS: Glucose, Whole Blood 247 mg/dL (60-115)
[2022-02-01] MEDS: oxyCODONE HCl Immed Release 5 MG TABLET PO ×2 (16:25→22:38)
[2022-02-01 17:04] LABS: Anion Gap 16 (12-20); Blood Urea Nitrogen 34 mg/dL (9-16); Calcium 7.8 mg/dL (8.4-10.2); Carbon Dioxide 26 mmol/L (22-29); Chloride 92 mmol/L (96-108); Creatinine Clr Calc Pharmacy 13.4; Estimated Glomerular Filt Rate 8; Glucose Random 232 mg/dL (60-115); Potassium 4.6 mmol/L (3.3-5.1); Sodium 129 mmol/L (135-145)
--- NOTE | 2022-02-01 19:06 | P.PNNP_ITS ---
Subjective Subjective Date of Service: 02/01/22 Interval history: CHart Reviewed. Events noted. Physical Exam Vital Signs: Vital Signs: Last Vital Signs Temp 98 F 02/01/22 16:00 Pulse 67 02/01/22 16:00 Resp 18 02/01/22 16:00 BP 131/60 02/01/22 16:00 Pulse Ox 100 02/01/22 16:00 O2 Del Method 02/01/22 16:00 O2 Flow Rate 2 01/27/22 03:33 FiO2 98 01/29/22 19:13 BMI result Body Mass Index 45.5 Const: General: cooperative, comfortable and no acute distress HEENT: Head: Yes normocephalic and Yes atraumatic Neck: Neck: Yes no JVD Resp: Auscultation: clear to auscultation bilaterally Cardio: Jugular venous distension: no JVD Rate: regular rate Rhythm: regular rhythm Heart sounds: S1 normal heart sound present and S2 normal heart sound present GI: Auscultation: normal bowel sounds Skin: General skin exam: no rashes or lesions noted Neuro: General: moves all extremities Extrem: General: Yes no clubbing, cyanosis or edema Objective Data Labs CBC & Chem 7: 01/30/22 06:24 02/01/22 16:33 Labs: Laboratory Results - last 24 hr 01/31/22 02/01/22 02/01/22 20:39 06:10 07:11 Sodium 130 L Potassium 4.7 Chloride 92 L Carbon Dioxide 27 Anion Gap 16 BUN 31 H Creatinine 5.05 H* Estim Creat Clear Calc 14.7 Estimated GFR 9 POC Glucose 147 H 154 H Random Glucose 160 H Calcium 8.0 L 02/01/22 02/01/22 02/01/22 10:56 15:28 16:33 Sodium 129 L Potassium 4.6 Chloride 92 L Carbon Dioxide 26 Anion Gap 16 BUN 34 H Creatinine 5.55 H* Estim Creat Clear Calc 13.4 Estimated GFR 8 POC Glucose 181 H 247 H Random Glucose 232 H Calcium 7.8 L Microbiology Microbiology Results: Microbiology 01/26/22 09:02 Blood - Venous Blood Culture - Final No growth after 5 days. 01/26/22 09:02 Blood - Venous Blood Culture - Final No growth after 5 days. Procedures Date of Service Date of Service: 02/01/22 Assessment & Plan Assessment and plan (1) CKD (chronic kidney disease) stage 5, GFR less than 15 ml/min: Status: Acute Plan CKD V biopsy proven diabetic nephropathy with 60% global sclerosis and 70% interstitial fibrosis Severe hypertensive disease ontop of this, with severe hyaline scerosis Started on HD this admission with temp dialysis catheter. anemia due to CKD interested in home therapy. Will need home visit and training. 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
[2022-02-01 21:03] LABS: Glucose, Whole Blood 165 mg/dL (60-115)
[2022-02-02] VITALS (14 sets, daily range): BP systolic 111–169; BP diastolic 55–74; PULSE 68–80; RESP 15–20; TEMP 36.1–36.8; O2SAT 93–100
[2022-02-02 07:25] LABS: Glucose, Whole Blood 128 mg/dL (60-115)
[2022-02-02] MEDS: Cyanocobalamin (Vitamin B-12) 1,000 MCG TABLET 1000 MCG PO (10:04)
[2022-02-02] MEDS: Cholecalciferol (Vitamin D3) 25 MCG TABLET 50 MCG PO (10:04)
[2022-02-02] MEDS: Torsemide 20 MG TABLET 40 MG PO ×2 (10:05→16:22)
[2022-02-02] MEDS: Famotidine 20 MG TABLET PO (10:05)
[2022-02-02] MEDS: Sennosides/Docusate Sodium TABLET 2 TAB PO ×2 (10:05→20:16)
[2022-02-02] MEDS: Sodium Bicarbonate 650 MG TABLET 1300 MG PO (10:05)
[2022-02-02] MEDS: carvediloL 12.5 MG TABLET 25 MG PO ×2 (10:06→20:16)
[2022-02-02] MEDS: Gabapentin 100 MG CAPSULE PO ×3 (10:06→20:16)
[2022-02-02] MEDS: Atorvastatin Calcium 80 MG TABLET PO (10:06)
[2022-02-02] MEDS: Topiramate 25 MG TABLET PO (10:06)
[2022-02-02] MEDS: Omeprazole 20 MG CAPSULE.DR PO (10:06)
[2022-02-02] MEDS: levETIRAcetam 500 MG TABLET PO (10:06)
[2022-02-02] MEDS: 0.9 % Sodium Chloride Flush 3 ML SYRINGE IVFLUSH ×3 (10:07→20:17)
--- NOTE | 2022-02-02 10:47 | P.PNIM_ITS ---
Subjective Subjective Date of Service: 02/02/22 Interval History: Follow-up for progression of CKD, received HD yesterday Itchiness is improving plan for o/p dialysis No fever overnight Review of Systems Review of Systems: Yes all other systems are reviewed and are negative Constitutional Constitutional: Denies chills and Denies fever(s) ENT Ears, Nose, Mouth, and Throat: Denies dizziness Cardiovascular Cardiovascular: Denies chest pain, Denies palpitations and Denies dyspnea Respiratory Respiratory: Denies cough and Denies dyspnea Gastrointestinal Gastrointestinal: Denies abdominal pain, Denies diarrhea, Denies nausea and Denies vomiting Neurologic Neurologic: Denies dizziness Endocrine Endocrine: Denies palpitations Physical Exam Vital Signs: Vital Signs: Last Vital Signs Temp 97.1 F 02/02/22 10:12 Pulse 70 02/02/22 10:12 Resp 20 02/02/22 10:12 BP 169/67 H 02/02/22 10:12 Pulse Ox 100 02/02/22 10:12 O2 Del Method 02/02/22 10:12 O2 Flow Rate 2 01/27/22 03:33 FiO2 98 01/29/22 19:13 BMI result Body Mass Index 45.5 Appearing in no acute distress lung sounds are clear to auscultation heart regular rate rhythm, clear S1, S2 positive bowel sounds, abdomen is soft, nontender neuro patient is alert x3, no focal deficits Objective Data Active Medications Acetaminophen (Acetaminophen 325 Mg Tablet) 650 mg PO Q6H PRN PRN Reason: Pain, Mild (Pain Scale 1-3) Last Admin: 01/30/22 20:05 Dose: 650 mg Documented By: HIRAM Aspirin (Aspirin 81 Mg Tab.Chew) 81 mg PO DAILY [facility] Last Admin: 02/02/22 09:56 Dose: Not Given Documented By: GINETTE Non-Admin Reason: procedure Atorvastatin Calcium (Atorvastatin Calcium 80 Mg Tablet) 80 mg PO DAILY [facility] Last Admin: 02/02/22 10:06 Dose: 80 mg Documented By: GINETTE Carvedilol (Carvedilol 12.5 Mg Tablet) 25 mg PO BID [facility]; Protocol Last Admin: 02/02/22 10:06 Dose: 25 mg Documented By: GINETTE Cyanocobalamin (Cyanocobalamin (Vitamin B-12) 1,000 Mcg Tablet) 1,000 mcg PO DAILY [facility] Last Admin: 02/02/22 10:04 Dose: 1,000 mcg Documented By: GINETTE Dextrose (Dextrose 50 % 25 Gm/50 Ml Syringe) 25 gm IVPUSH Q15M PRN; Protocol PRN Reason: per Hypoglycemia Standing Ord. Diphenhydramine HCl (Diphenhydramine Hcl 25 Mg Capsule) 25 mg PO Q6H PRN PRN Reason: Itching Last Admin: 02/01/22 21:20 Dose: 25 mg Documented By: FOSTEKVanessa Docusate Sodium (Docusate Sodium 100 Mg Capsule) 100 mg PO DAILY PRN PRN Reason: Constipation Last Admin: 01/31/22 08:44 Dose: 100 mg Documented By: JOSE M Famotidine (Famotidine 20 Mg Tablet) 20 mg PO DAILY [facility] Last Admin: 02/02/22 10:05 Dose: 20 mg Documented By: GINETTE Gabapentin (Gabapentin 100 Mg Capsule) 100 mg PO TID [facility] Last Admin: 02/02/22 10:06 Dose: 100 mg Documented By: IGNETTE Glucose (Glucose Gel 15 Gm Gel..Gram.) 15 gm PO Q15M PRN; Protocol PRN Reason: per Hypoglycemia Standing Ord. Heparin Sodium (Porcine) (Heparin Sodium,Porcine 5,000 Unit/Ml Vial) 5,000 unit SUBCUT Q8H [facility] Last Admin: 02/02/22 09:58 Dose: Not Given Documented By: GINETTE Non-Admin Reason: procedure Hydralazine HCl (Hydralazine Hcl 20 Mg/Ml Vial) 5 mg IVPUSH Q4H PRN; Protocol PRN Reason: sb>180 Hydrocortisone (Hydrocortisone 1 % Cream 28.35 Gm Tube) 1 appl TOPICAL BID PRN PRN Reason: Skin Irritation Last Admin: 01/31/22 17:28 Dose: 1 appl Documented By: JOSE M Insulin Human Lispro (Insulin Lispro 100 Unit/Ml 3 Ml Vial) 0 unit SUBCUT QIDACHS [facility]; Protocol Last Admin: 02/02/22 07:25 Dose: Not Given Documented By: GINETTE Non-Admin Reason: No Insulin Coverage Lactulose (Lactulose 20 Gm/30 Ml Solution) 10 gm PO DAILY PRN PRN Reason: Constipation Levetiracetam (Levetiracetam 500 Mg Tablet) 500 mg PO DAILY [facility] Last Admin: 02/02/22 10:06 Dose: 500 mg Documented By: GINETTE Omeprazole (Omeprazole 20 Mg Capsule.Dr) 20 mg PO DAILY@0630 [facility] Last Admin: 02/02/22 10:06 Dose: 20 mg Documented By: GINETTE Ondansetron HCl (Ondansetron Hcl 4 Mg/2 Ml Vial) 4 mg IVPUSH Q8H PRN PRN Reason: Nausea and Vomiting Last Admin: 01/30/22 11:03 Dose: 4 mg Documented By: RAFI Oxycodone HCl (Oxycodone Hcl Immed Release 5 Mg Tablet) 5 mg PO Q6H PRN PRN Reason: Pain, Moderate (Pain Scale 4-6 Last Admin: 02/01/22 22:38 Dose: 5 mg Documented By: PILYTEKVanessa Polyethylene Glycol (Polyethylene Glycol 3350 17 Gm Powd.Pack) 17 gm PO DAILY PRN PRN Reason: consternation Last Admin: 01/31/22 08:43 Dose: 17 gm Documented By: JOSE M Senna/Docusate Sodium (Sennosides/Docusate Sodium Tablet) 2 tab PO BID [facility] Last Admin: 02/02/22 10:05 Dose: 2 tab Documented By: GINETTE Sodium Bicarbonate (Sodium Bicarbonate 650 Mg Tablet) 1,300 mg PO BID [facility] Last Admin: 02/02/22 10:05 Dose: 1,300 mg Documented By: GINETTE Sodium Chloride (0.9 % Sodium Chloride Flush 3 Ml Syringe) 3 ml IVFLUSH QSHIFT [facility] Last Admin: 02/02/22 10:07 Dose: 3 ml Documented By: GINETTE Topiramate (Topiramate 25 Mg Tablet) 25 mg PO DAILY [facility] Last Admin: 02/02/22 10:06 Dose: 25 mg Documented By: GINETTE Torsemide (Torsemide 20 Mg Tablet) 40 mg PO BID@0800,1700 [facility]; Protocol Last Admin: 02/02/22 10:05 Dose: 40 mg Documented By: GINETTE Vitamin D (Cholecalciferol (Vitamin D3) 25 Mcg Tablet) 50 mcg PO DAILY [facility] Last Admin: 02/02/22 10:04 Dose: 50 mcg Documented By: GINETTE Labs CBC & Chem 7: 01/30/22 06:24 02/01/22 16:33 Labs: Laboratory Results - last 24 hr 02/01/22 02/01/22 02/01/22 10:56 15:28 16:33 Anion Gap 16 Estim Creat Clear Calc 13.4 Estimated GFR 8 POC Glucose 181 H 247 H Random Glucose 232 H Calcium 7.8 L 02/01/22 02/02/22 21:00 07:21 Anion Gap Estim Creat Clear Calc Estimated GFR POC Glucose 165 H 128 H Random Glucose Calcium Assessment and Plan (1) CKD stage 5 due to type 2 diabetes mellitus: Status: Acute (2) Chronic anemia: Status: Acute Plan 56yo F with CKD5, biopsy-proven advanced DM neuropathy, uncontrolled HTN, DM2, anemia of CKD, sleep apnea not on CPAP EMIL/CKD5 Nephro following. temp HD catheter placed 01/26/22, first HD 01/27 stopped sodium bicarbonate supplementation has outpatient HD seat at [facility], [place], [place] 6am arranged upon discharge Plan for permacath placement today leukocytosis resolved. low grade fevers resolved no localizing source of infection repeat CXR negative, repeat UA neg Hyponatremia. Gentle IV fluids x1 L Discussed with Nephro, needs to be adjusted in dialysis hyperK, mild resolved HTN BP low after HD 01/28, improved with albumin will d/c norvasc continue carvedilol (increased this admission), torsemide anemia of CKD epo per Nephro transfused 1u pRBCs 01/24, 01/28 with appropriate rise in H/H FOBT negative hypoCa resolved (corrected for hypoalbuminemia) Seizure disorder. No seizure activity during this admission continue levetiracetam + topiramate HLD statin CAREY CPAP at night DM2, A1c 8.7 sliding scale, ADA diet chronic back pain oxycodone, gabapentin morbid obesity BMI 45.5 Discussed importance of weight management as this may be contributing to worsening of other comorbidities VTE ppx: [facility] attending - dr. Cox Full code In my clinical judgment, the patient requires continued hospitalization for the following reasons: EMIL, HD initiation, BP monitoring Quality Stroke Does the patient have a stroke diagnosis?: No VTE Prior VTE?: No VTE Risk Level:: Medical - moderate - high VTE Device Contraindication: Treatment Not Indicated VTE Drug Contraindication: N/A - Med Ordered
[2022-02-02 14:16] LABS: Glucose, Whole Blood 139 mg/dL (60-115)
[2022-02-02] MEDS: oxyCODONE HCl Immed Release 5 MG TABLET PO (14:16)
[2022-02-02 16:07] LABS: Anion Gap 14 (12-20); Blood Urea Nitrogen 14 mg/dL (9-16); Calcium 7.9 mg/dL (8.4-10.2); Carbon Dioxide 28 mmol/L (22-29); Chloride 96 mmol/L (96-108); Creatinine Clr Calc Pharmacy 23.9; Estimated Glomerular Filt Rate 15; Glucose Random 250 mg/dL (60-115); Potassium 4.8 mmol/L (3.3-5.1); Sodium 133 mmol/L (135-145)
[2022-02-02] MEDS: Insulin Lispro 100 UNIT/ML 3 ML VIAL SUBCUT ×2 (16:26→21:31)
[2022-02-02 16:29] LABS: Glucose, Whole Blood 241 mg/dL (60-115)
[2022-02-02] MEDS: diphenhydrAMINE HCL 25 MG CAPSULE PO (16:39)
[2022-02-02] MEDS: Morphine Sulfate 4 MG/ML CARTRIDGE IVPUSH (20:16)
[2022-02-02 20:39] LABS: Glucose, Whole Blood 208 mg/dL (60-115)
[2022-02-03] VITALS (8 sets, daily range): BP systolic 106–141; BP diastolic 53–61; PULSE 68–79; RESP 13–16; TEMP 36.4–37.6; O2SAT 92–98
[2022-02-03] MEDS: Heparin Sodium,Porcine 5,000 UNIT/ML VIAL 5000 UNIT SUBCUT ×2 (01:50→17:11)
[2022-02-03] MEDS: oxyCODONE HCl Immed Release 5 MG TABLET PO ×4 (01:51→22:12)
[2022-02-03] MEDS: Omeprazole 20 MG CAPSULE.DR PO (05:36)
[2022-02-03] MEDS: diphenhydrAMINE HCL 25 MG CAPSULE PO ×3 (05:39→20:59)
[2022-02-03 07:33] LABS: Glucose, Whole Blood 155 mg/dL (60-115)
[2022-02-03] MEDS: Insulin Lispro 100 UNIT/ML 3 ML VIAL SUBCUT ×4 (08:25→20:56)
[2022-02-03 08:31] LABS: Anion Gap 15 (12-20); Blood Urea Nitrogen 19 mg/dL (9-16); Calcium 7.8 mg/dL (8.4-10.2); Carbon Dioxide 26 mmol/L (22-29); Chloride 95 mmol/L (96-108); Creatinine Clr Calc Pharmacy 18.6; Estimated Glomerular Filt Rate 12; Glucose Random 155 mg/dL (60-115); Potassium 4.4 mmol/L (3.3-5.1); Sodium 132 mmol/L (135-145)
[2022-02-03 11:37] LABS: Glucose, Whole Blood 198 mg/dL (60-115)
[2022-02-03] MEDS: Cholecalciferol (Vitamin D3) 25 MCG TABLET 50 MCG PO (12:55)
[2022-02-03] MEDS: Aspirin 81 MG TAB.CHEW PO (12:55)
[2022-02-03] MEDS: Cyanocobalamin (Vitamin B-12) 1,000 MCG TABLET 1000 MCG PO (12:56)
[2022-02-03] MEDS: Atorvastatin Calcium 80 MG TABLET PO (12:56)
[2022-02-03] MEDS: Gabapentin 100 MG CAPSULE PO ×2 (12:56→20:55)
[2022-02-03] MEDS: Topiramate 25 MG TABLET PO (12:56)
[2022-02-03] MEDS: levETIRAcetam 500 MG TABLET PO (12:57)
[2022-02-03] MEDS: Sennosides/Docusate Sodium TABLET 2 TAB PO ×2 (13:04→20:55)
--- NOTE | 2022-02-03 13:27 | MHC.CM.PN ---
CM awaits PT eval to assist with dc planning; CM will follow.
--- NOTE | 2022-02-03 13:55 | HO.PM.IMPN ---
Subjective Subjective Date of Service: 06/21/22 Interval History: patient has been seen today. Denies any stomach pain chest pain. Patient reports he went for dialysis today and yesterday as well. Denies any shortness of breath. Physical Exam Vital Signs: Vital Signs: Last Vital Signs Temp 97.8 F 02/03/22 12:00 Pulse 68 02/03/22 13:37 Resp 16 02/03/22 12:00 BP 111/56 L 02/03/22 13:37 Pulse Ox 92 02/03/22 13:37 O2 Del Method 02/03/22 12:00 O2 Flow Rate 2 02/02/22 14:15 FiO2 98 01/29/22 19:13 BMI result Body Mass Index 45.5 Gen: Appears be in no acute distress HEENT: NCAT, Moist mucosa. Pulmonary: Vesicular breath sounds, fair air entry ; has PermCath in the left chest, site appears clean CVS: Normal S1-S2 Abdomen: BS+, Soft, Nontender Extremities: Warm well perfused Neuro: Alert and awake. Objective Data Active Medications Acetaminophen (Acetaminophen 325 Mg Tablet) 650 mg PO Q6H PRN PRN Reason: Pain, Mild (Pain Scale 1-3) Last Admin: 01/30/22 20:05 Dose: 650 mg Documented By: HIRAM Aspirin (Aspirin 81 Mg Tab.Chew) 81 mg PO DAILY [facility] Last Admin: 02/03/22 12:55 Dose: 81 mg Documented By: MILTON Atorvastatin Calcium (Atorvastatin Calcium 80 Mg Tablet) 80 mg PO DAILY [facility] Last Admin: 02/03/22 12:56 Dose: 80 mg Documented By: MILTON Carvedilol (Carvedilol 12.5 Mg Tablet) 25 mg PO BID [facility]; Protocol Last Admin: 02/03/22 12:56 Dose: Not Given Documented By: MILTON Non-Admin Reason: Given in Dialysis Cyanocobalamin (Cyanocobalamin (Vitamin B-12) 1,000 Mcg Tablet) 1,000 mcg PO DAILY [facility] Last Admin: 02/03/22 12:56 Dose: 1,000 mcg Documented By: MILTON Dextrose (Dextrose 50 % 25 Gm/50 Ml Syringe) 25 gm IVPUSH Q15M PRN; Protocol PRN Reason: per Hypoglycemia Standing Ord. Diphenhydramine HCl (Diphenhydramine Hcl 25 Mg Capsule) 25 mg PO Q6H PRN PRN Reason: Itching Last Admin: 02/03/22 13:04 Dose: 25 mg Documented By: MILTON Docusate Sodium (Docusate Sodium 100 Mg Capsule) 100 mg PO DAILY PRN PRN Reason: Constipation Last Admin: 01/31/22 08:44 Dose: 100 mg Documented By: JOSE M Famotidine (Famotidine 20 Mg Tablet) 20 mg PO TuThSa@1630 [facility] Gabapentin (Gabapentin 100 Mg Capsule) 100 mg PO TID [facility] Last Admin: 02/03/22 12:56 Dose: 100 mg Documented By: MILTON Glucose (Glucose Gel 15 Gm Gel..Gram.) 15 gm PO Q15M PRN; Protocol PRN Reason: per Hypoglycemia Standing Ord. Heparin Sodium (Porcine) (Heparin Sodium,Porcine 5,000 Unit/Ml Vial) 5,000 unit SUBCUT Q8H [facility] Last Admin: 02/03/22 12:57 Dose: Not Given Documented By: MILTON Non-Admin Reason: Off unit: Dialysis Hydralazine HCl (Hydralazine Hcl 20 Mg/Ml Vial) 5 mg IVPUSH Q4H PRN; Protocol PRN Reason: sb>180 Hydrocortisone (Hydrocortisone 1 % Cream 28.35 Gm Tube) 1 appl TOPICAL BID PRN PRN Reason: Skin Irritation Last Admin: 01/31/22 17:28 Dose: 1 appl Documented By: JOSE M Insulin Human Lispro (Insulin Lispro 100 Unit/Ml 3 Ml Vial) 0 unit SUBCUT QIDACHS [facility]; Protocol Last Admin: 02/03/22 13:05 Dose: 2 unit Documented By: MILTON Lactulose (Lactulose 20 Gm/30 Ml Solution) 10 gm PO DAILY PRN PRN Reason: Constipation Levetiracetam (Levetiracetam 500 Mg Tablet) 500 mg PO DAILY [facility] Last Admin: 02/03/22 12:57 Dose: 500 mg Documented By: MILTON Omeprazole (Omeprazole 20 Mg Capsule.) 20 mg PO DAILY@0630 [facility] Last Admin: 02/03/22 05:36 Dose: 20 mg Documented By: RENETTA Ondansetron HCl (Ondansetron Hcl 4 Mg/2 Ml Vial) 4 mg IVPUSH Q8H PRN PRN Reason: Nausea and Vomiting Last Admin: 01/30/22 11:03 Dose: 4 mg Documented By: RAFI Polyethylene Glycol (Polyethylene Glycol 3350 17 Gm Powd.Pack) 17 gm PO DAILY PRN PRN Reason: consternation Last Admin: 01/31/22 08:43 Dose: 17 gm Documented By: JOSE M Senna/Docusate Sodium (Sennosides/Docusate Sodium Tablet) 2 tab PO BID [facility] Last Admin: 02/03/22 13:04 Dose: 2 tab Documented By: MILTON Sodium Chloride (0.9 % Sodium Chloride Flush 3 Ml Syringe) 3 ml IVFLUSH QSHIFT [facility] Last Admin: 02/03/22 13:07 Dose: Not Given Documented By: MILTON Non-Admin Reason: Off unit: Dialysis Topiramate (Topiramate 25 Mg Tablet) 25 mg PO DAILY [facility] Last Admin: 02/03/22 12:56 Dose: 25 mg Documented By: MILTON Torsemide (Torsemide 20 Mg Tablet) 40 mg PO BID@0800,1700 [facility]; Protocol Last Admin: 02/03/22 13:06 Dose: Not Given Documented By: MILTON Non-Admin Reason: Off unit: Dialysis Vitamin D (Cholecalciferol (Vitamin D3) 25 Mcg Tablet) 50 mcg PO DAILY [facility] Last Admin: 02/03/22 12:55 Dose: 50 mcg Documented By: MILTON Labs 02/05/22 06:31 02/05/22 06:31 Labs: Laboratory Results - last 24 hr 02/02/22 02/02/22 02/02/22 14:09 15:23 16:23 Anion Gap 14 Estim Creat Clear Calc 23.9 Estimated GFR 15 POC Glucose 139 H 241 H Random Glucose 250 H Calcium 7.9 L 02/02/22 02/03/22 02/03/22 20:05 07:16 07:25 Anion Gap 15 Estim Creat Clear Calc 18.6 Estimated GFR 12 POC Glucose 208 H 155 H Random Glucose 155 H Calcium 7.8 L 02/03/22 11:21 Anion Gap Estim Creat Clear Calc Estimated GFR POC Glucose 198 H Random Glucose Calcium Assessment and Plan (1) CKD stage 5 due to type 2 diabetes mellitus: Status: Acute Plan 56-year-old female with a past medical history of hypertension, hyperlipidemia, diabetes, diabetic nephropathy, CKD, CAREY on CPAP presented with multiple complaints including abdominal pain; noted to have EMIL on CKD admitted to the hospital for further management. During the hospital stay patient required hemodialysis; has been followed by Nephrology. EMIL on CKD: Patient has worsening diabetic nephropathy currently requiring hemodialysis. Patient has PermCath placed on left chest on 02/02/2022. Nephrology recommended hemodialysis on TTS Indeterminate troponins: Likely reduced clearance. Patient denies any chest pain. continue torsemide 40 mg p.o. b.i.d. Abdominal discomfort: Currently resolved. Patient tolerating diet okay. CT abdomen showed no acute findings. Hypertensive urgency: Resolved. Continue home hydralazine,, carvedilol Hypocalcemia: Received calcium gluconate anemia: Presumed to be secondary to anemia of chronic disease from CKD EPO per Nephro Patient received 1 unit of PRBC on . History is currently stable Stool guaiac negative Diabetes: Insulin sliding scale. Seizure disorder: Continue home Keppra plus topiramate CAREY: Continue home CPAP DVT prophylaxis: Subcu heparin Code status: Full code Quality Stroke Does the patient have a stroke diagnosis?: No VTE Prior VTE?: No VTE Risk Level:: Medical - moderate - high VTE Device Contraindication: Treatment Not Indicated VTE Drug Contraindication: N/A - Med Ordered
[2022-02-03] MEDS: 0.9 % Sodium Chloride Flush 3 ML SYRINGE IVFLUSH (15:37)
[2022-02-03 16:33] LABS: Glucose, Whole Blood 222 mg/dL (60-115)
[2022-02-03] MEDS: Torsemide 20 MG TABLET 40 MG PO (17:11)
[2022-02-03 20:20] LABS: Glucose, Whole Blood 210 mg/dL (60-115)
[2022-02-03] MEDS: carvediloL 12.5 MG TABLET 25 MG PO (20:55)
[2022-02-04] MEDS: 0.9 % Sodium Chloride Flush 3 ML SYRINGE IVFLUSH ×3 (01:20→15:43)
[2022-02-04] MEDS: Heparin Sodium,Porcine 5,000 UNIT/ML VIAL 5000 UNIT SUBCUT ×3 (01:20→17:30)
[2022-02-04] MEDS: diphenhydrAMINE HCL 50 MG/ML VIAL 25 MG IVPUSH ×2 (01:54→17:30)
[2022-02-04 03:40] VITALS: BP 127/60; PULSE 73; RESP 16; TEMP 36.3; O2SAT 93
[2022-02-04] MEDS: Omeprazole 20 MG CAPSULE.DR PO (06:34)
[2022-02-04 07:06] VITALS: BP 127/60; PULSE 76; RESP 18; TEMP 36.7; O2SAT 98
[2022-02-04 07:13] LABS: Glucose, Whole Blood 157 mg/dL (60-115)
[2022-02-04] MEDS: Insulin Lispro 100 UNIT/ML 3 ML VIAL SUBCUT ×3 (08:45→20:52)
[2022-02-04 08:57] LABS: MANUAL DIFF FLAG NO
[2022-02-04 09:02] LABS: Basophils Absolute Auto 0.1 X10*3/uL (0.0-0.2); Basophils Percent Auto 0.7 % (0-2); Eosinophils Absolute Auto 0.5 X10*3/uL (0.0-0.4); Eosinophils Percent Auto 6.7 % (0-4); Hematocrit 25.3 % (37.0-47.0); Imm Gran Abs Auto 0.08 X10*3/uL (0.00-0.03); Imm Gran Pct Auto 1.1 % (0.0-0.4); Lymphocytes Percent Auto 14.1 % (20-40); Mean Corpuscular HGB Conc 31.6 g/dl (31.0-35.0); Mean Corpuscular Hemoglobin 27.6 pg (27.0-33.0); Mean Corpuscular Volume 87.2 fL (80.0-98.0); Mean Platelet Volume 10.2 fL (9.4-12.3); Monocytes Absolute Auto 0.6 X10*3/uL (0.1-1.2); Neutrophils Absolute Auto 4.8 x10*3/uL (2.0-8.3); Neutrophils Percent Auto 68.4 % (45-73); Platelet Count 241 X10*3/uL (160-400); Red Cell Distribution Width 15.9 % (11.0-16.0)
[2022-02-04 09:33] LABS: Anion Gap 16 (12-20); Blood Urea Nitrogen 32 mg/dL (9-16); Calcium 8.4 mg/dL (8.4-10.2); Carbon Dioxide 27 mmol/L (22-29); Chloride 92 mmol/L (96-108); Creatinine Clr Calc Pharmacy 14.1; Estimated Glomerular Filt Rate 8; Glucose Random 214 mg/dL (60-115); Potassium 4.6 mmol/L (3.3-5.1); Sodium 130 mmol/L (135-145)
--- NOTE | 2022-02-04 10:58 | P.DS_ITS ---
DS: Providers Provider Date of Service: 02/04/22 Date of admission: 01/23/22 01:40 Date of discharge: 02/04/22 Primary care physician: Delfina Butler MD Consults: 01/23/22 01:39 Consult to Nephrology Routine Consulting Provider: [facility] Reason for consultation: emil on ckd Has provider been notified: No DS: Diagnosis Discharge Diagnosis (1) CKD stage 5 due to type 2 diabetes mellitus: Status: Acute DS: Summary Hospital Course Hospital Course: Admission note HPI 56-year-old female with past medical history of diabetes, HLD, chronic anemia, HTN, obesity, sleep apnea not currently on CPAP machine home a besides hospital with multiple complaints.? She reports that she came to the hospital due to constant right upper quadrant abdominal pain as well as back lower pain.? Patient reports S she saw her doctor the day prior, had labs done, which showed abduct kidney function, she was supposed to also have injection in her lower back.? The pain was so severe that she decided to come to the ED. she is also complaining of right flank pain radiating to the wound, reports urinary frequency, patient is also complaining of nausea, no vomiting, she also com plaining of headache.? She reports compliance with her antihypertensives.? She also has complaints of midsternal chest pain as well as palpitations.? Reports chest pain as heavy, constant, nonradiating. Patient otherwise denies any change in vision, no shortness of breath, no diarrhea constipation, lower extremity edema although reports balance is off, and has pain in her feet bilaterally.? On arrival to the ED patient's blood pressure is recorded as 228/95 Labs are significant for WBC count of 8.8, hemoglobin of 7.7 which is around baseline pH of 7.23, pCO2 of 37, bicarb of 17, BUN of 67, creatinine of 6.17, glucose of 469, calcium of 7.6, UA positive for small blood and RBC Abdomen pelvic CT shows small obstructing right renal stone with no left renal stone hydronephrosis, venous duplex shows no DVT of lower extremity Troponin Hospital course The patient presented to the hospital with abdominal pain. Noted 12 acute kidney injury on CKD stage 5. Evaluated by Nephrology team as kidney biopsy was showing diabetic nephropathy and sclerosing. Temporary dialysis catheter was placed at the beginning and started on dialysis. PermCath was placed on 02/02/2022 with dialysis continued for 3 sessions with good response as significant fluid overload resolved. Started on torsemide 40 mg b.i.d.. Plan to be followed as outpatient with Nephrology to continue dialysis as an outpatient on TTS. Hypertensive urgency on presentation. Improved after extra fluid removal by dialysis and increasing carvedilol to 25 mg daily. To be monitored at home and followed by Nephrology as outpatient. Found to have Hypocalcemia. Received calcium gluconate with fair response Noted to have Anemia. Presumed to be secondary to anemia of chronic disease from CKD. Receiving a unit of blood transfusion with good response.EPO per protocol to be followed by Nephrology. Start torsemide 40 mg b.i.d. Increase carvedilol for 25 mg b.i.d. Dialysis as outpatient Time Spent with Patient Time attestation: Total time spent providing and/or coordinating discharge services: Discharge coordination time: Less than 30 minutes Quality: Safe Use of Opioids Does Pt have an Active Cancer Diagnosis on the Problem List?: No Quality: Stroke Does the patient have a stroke diagnosis?: No Physical Exam Vital Signs: Vital Signs: Last Vital Signs Temp 98.1 F 02/04/22 07:06 Pulse 76 02/04/22 07:06 Resp 18 02/04/22 07:06 BP 127/60 02/04/22 07:06 Pulse Ox 98 02/04/22 07:06 O2 Del Method 02/04/22 07:06 O2 Flow Rate 2 02/02/22 14:15 FiO2 98 01/29/22 19:13 BMI result Body Mass Index 45.5 Gen: Appears be in no acute distress HEENT: NCAT, Moist mucosa. Pulmonary: Vesicular breath sounds, fair air entry CVS: Normal S1-S2 Abdomen: BS+, Soft, Nontender Extremities: Warm well perfused Neuro: Alert and awake. DS: Data Data Completed and Pending Completed studies during hospitalization [Text1]: Procedures Assistance with Respiratory Ventilation, Less than 24 Consecutive Hours, Continuous Positive Airway Pressure (12/24/21) Excision of Left Kidney, Percutaneous Approach, Diagnostic (12/24/21) Transfusion of Nonautologous Red Blood Cells into Peripheral Vein, Percutaneous Approach (12/24/21) Labs on day of discharge: Laboratory Results - last 24 hr 10/19/22 10/19/22 10/19/22 11:21 16:23 19:59 WBC RBC Hgb Hct MCV MCH MCHC RDW Plt Count MPV Immature Gran % (Auto) Neut % (Auto) Lymph % (Auto) [place] % (Auto) Eos % (Auto) Baso % (Auto) Lymph # (Auto) [place] # (Auto) Eos # (Auto) Baso # (Auto) Abs Immat Gran (auto) Absolute Neuts (auto) Absolute Nucleated RBC Nucleated RBC % (auto) Sodium Potassium Chloride Carbon Dioxide Anion Gap BUN Creatinine Estim Creat Clear Calc Estimated GFR POC Glucose 198 H 222 H 210 H Random Glucose Calcium 02/04/22 02/04/22 02/04/22 07:09 08:52 08:52 WBC 7.0 RBC 2.90 L Hgb 8.0 L Hct 25.3 L MCV 87.2 MCH 27.6 MCHC 31.6 RDW 15.9 Plt Count 241 MPV 10.2 Immature Gran % (Auto) 1.1 H Neut % (Auto) 68.4 Lymph % (Auto) 14.1 L [place] % (Auto) 9.0 Eos % (Auto) 6.7 H Baso % (Auto) 0.7 Lymph # (Auto) 1.0 L [place] # (Auto) 0.6 Eos # (Auto) 0.5 H Baso # (Auto) 0.1 Abs Immat Gran (auto) 0.08 H Absolute Neuts (auto) 4.8 Absolute Nucleated RBC 0.000 Nucleated RBC % (auto) 0.0 Sodium 130 L Potassium 4.6 Chloride 92 L Carbon Dioxide 27 Anion Gap 16 BUN 32 H D Creatinine 5.26 H* Estim Creat Clear Calc 14.1 Estimated GFR 8 POC Glucose 157 H Random Glucose 214 H Calcium 8.4 D Discharge Plan Discharge Anticipated Discharge Date/Time: 02/04/22 10:58 Patient Disposition: Home Health Service Discharge Diagnosis: EMIL on CKD 5 Referrals: ELAINE Guerrero [Other] - 1 Week (HD T//SAT @ 6:00am) Cesar JESUS [Outside] - 1 Week Moises Gonzales MD [Physician] - 2 Weeks Delfina Butler MD [Primary Care Provider] - 1 Week Discharge Medications: New torsemide 20 mg Tablet 40 mg PO BID@0800,1700 30 Days Qty: 120 2RF Protocol: Hold for SBP< HOLD for SBP < : 90 Continued atorvastatin 80 mg tablet 1 tab PO DAILY loperamide 2 mg capsule 1 cap PO Q6H PRN (Reason: Diarrhea) cyanocobalamin (vitamin B-12) [Vitamin B-12] 1,000 mcg tablet 1 tab PO DAILY topiramate 25 mg tablet 1 tab PO DAILY famotidine 20 mg tablet 1 tab PO DAILY pantoprazole 40 mg tablet,delayed release (DR/EC) 1 tab PO DAILY@0630 aspirin 81 mg tablet,chewable 1 tab PO DAILY gabapentin 100 mg capsule 1 cap PO TID insulin lispro 100 unit/mL insulin pen See Protocol subcut TIDAC Protocol: Insulin Correction Scale Less than or equal to 110 ---- Give (units): 0 111 to 150 Give (units): 0 151 to 200 Give (units): 2 201 to 250 Give (units): 4 251 to 300 Give (units): 6 301 to 350 Give (units): 8 Greater than 350 Give (units): 10 Call MD if Blood Glucose > : 350 Rx Instructions: sliding scale lactulose 10 gram/15 mL solution 15 ml PO DAILY PRN (Reason: Constipation) cholecalciferol (vitamin D3) [Vitamin D3] 50 mcg (2,000 unit) capsule 1 cap PO DAILY Ozempic 1 mg/dose (2 mg/1.5 mL) pen injector 1 mg SUBCUT SA@0900 betamethasone dipropionate 0.05 % ointment 1 appl topical BID calcipotriene 0.005 % ointment 1 applic topical BID levetiracetam 500 mg tablet 500 mg PO DAILY Qty: 30 0RF hydrocortisone 2.5 % cream 1 appl topical BID PRN (Reason: Skin Irritation) Rx Instructions: Apply to breast and buttocks for flares Discontinued carvedilol 12.5 mg tablet 1 tab PO BID amlodipine 5 mg Tablet 5 mg PO DAILY 30 Days Qty: 30 0RF Protocol: Hold for SBP< HOLD for SBP < : 90 doxycycline hyclate 100 mg tablet 1 tab PO BID No Action amlodipine 10 mg tablet 1 tab PO DAILY Triphrocaps 1 mg capsule 1 cap PO DAILY insulin glargine [Lantus Solostar U-100 Insulin] 100 unit/mL (3 mL) insulin pen 40 unit subcut DAILY tizanidine 4 mg tablet 1 tab PO Q8H PRN (Reason: muscle spasm) acetaminophen 500 mg Tablet 500 mg PO Q8H PRN (Reason: Pain) ondansetron 4 mg tablet,disintegrating 1 tab PO Q8H PRN (Reason: Nausea) clotrimazole 1 % Cream 1 appl TOPICAL DAILY PRN (Reason: fold) morphine 15 mg tablet 15 mg PO Q4-6H PRN (Reason: pain) Qty: 10 0RF Rx Instructions: The patient may ask for partial fill; Partial Fill upon patient request. Discharge Orders: Discharge Order (Routine); Ordered 02/06/22 Ordered By: Frida Bee Activity on Discharge: As tolerated Stand Alone Forms: Patient Portal Discharge page Print Language: Urdu Care Plan Goals: Please follow up with your PCP king week. Please maintain your Scheduled Hemodialysis appointments. Follow up with your sander hand in a week. Health Concerns: Please take Low potassium diet. Plan of Treatment: You were admitted to the hospital for evaluation of worsening kidney function. Followed by Nephrology as dialysis was started during the hospital stay. You will need dialysis as outpatient and to follow with Nephrology as planned STT. Blood pressure medications changed for better control of her blood pressure. Increased Carvediolol at 25 mg twice daily. New Medication Torsemide started at 40mg Every 12hrs. Assessment: Please check your Blood pressure Daily, maintain a log and Show it to your PC P/Nephrology for further dose adjustments if needed. Patient Instructions: Chronic Kidney Disease Diet (DC) Discharge Date/Time: 02/06/22 14:46
[2022-02-04 10:59] VITALS: BP 116/62; PULSE 63; RESP 18; TEMP 36.4; O2SAT 97
[2022-02-04 11:37] LABS: Glucose, Whole Blood 156 mg/dL (60-115)
--- NOTE | 2022-02-04 12:18 | PM.PNNEP ---
Subjective Subjective Date of Service: 02/04/22 Interval history: Chart Reviewed. Events noted. Physical Exam Vital Signs: Vital Signs: Last Vital Signs Temp 97.5 F 02/04/22 10:59 Pulse 63 02/04/22 10:59 Resp 18 02/04/22 10:59 BP 116/62 02/04/22 10:59 Pulse Ox 97 02/04/22 10:59 O2 Del Method 02/04/22 10:59 O2 Flow Rate 2 02/02/22 14:15 FiO2 98 01/29/22 19:13 BMI result Body Mass Index 45.5 Const: General: cooperative, comfortable and no acute distress HEENT: Head: Yes normocephalic and Yes atraumatic Neck: Neck: Yes no lymphadenopathy Resp: Auscultation: clear to auscultation bilaterally Cardio: Jugular venous distension: no JVD Rate: regular rate Rhythm: regular rhythm Heart sounds: S1 normal heart sound present and S2 normal heart sound present GI: Auscultation: normal bowel sounds Neuro: General: moves all extremities Extrem: General: Yes no clubbing, cyanosis or edema Objective Data Labs CBC & Chem 7: 02/04/22 08:52 02/04/22 08:52 Labs: Laboratory Results - last 24 hr 02/03/22 02/03/22 02/04/22 16:23 19:59 07:09 WBC RBC Hgb Hct MCV MCH MCHC RDW Plt Count MPV Immature Gran % (Auto) Neut % (Auto) Lymph % (Auto) [place] % (Auto) Eos % (Auto) Baso % (Auto) Lymph # (Auto) [place] # (Auto) Eos # (Auto) Baso # (Auto) Abs Immat Gran (auto) Absolute Neuts (auto) Absolute Nucleated RBC Nucleated RBC % (auto) Sodium Potassium Chloride Carbon Dioxide Anion Gap BUN Creatinine Estim Creat Clear Calc Estimated GFR POC Glucose 222 H 210 H 157 H Random Glucose Calcium 02/04/22 02/04/22 02/04/22 08:52 08:52 10:58 WBC 7.0 RBC 2.90 L Hgb 8.0 L Hct 25.3 L MCV 87.2 MCH 27.6 MCHC 31.6 RDW 15.9 Plt Count 241 MPV 10.2 Immature Gran % (Auto) 1.1 H Neut % (Auto) 68.4 Lymph % (Auto) 14.1 L [place] % (Auto) 9.0 Eos % (Auto) 6.7 H Baso % (Auto) 0.7 Lymph # (Auto) 1.0 L [place] # (Auto) 0.6 Eos # (Auto) 0.5 H Baso # (Auto) 0.1 Abs Immat Gran (auto) 0.08 H Absolute Neuts (auto) 4.8 Absolute Nucleated RBC 0.000 Nucleated RBC % (auto) 0.0 Sodium 130 L Potassium 4.6 Chloride 92 L Carbon Dioxide 27 Anion Gap 16 BUN 32 H D Creatinine 5.26 H* Estim Creat Clear Calc 14.1 Estimated GFR 8 POC Glucose 156 H Random Glucose 214 H Calcium 8.4 D Microbiology Microbiology Results: Microbiology 01/26/22 09:02 Blood - Venous Blood Culture - Final No growth after 5 days. 01/26/22 09:02 Blood - Venous Blood Culture - Final No growth after 5 days. 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 anemia due to CKD interested in home therapy. Will need home visit and training. Can be coordinated by outpatient HD unit discussed with her renal replacement therapy options REC HD per TTS scheduled s/p permcath placement 02/02 CLAUS per protocol renal diet phosphate binders outpatient dialysis arranged at [facility] tts1 (2) Metabolic acidosis: Status: Acute Time Spent With Patient Time: Total time spent is greater than 50% in coordination of care (as documented) at patient's floor/unit and/or counseling patient: Progress Note: Quality Stroke Does the patient have a stroke diagnosis?: No
[2022-02-04] MEDS: Sennosides/Docusate Sodium TABLET 2 TAB PO ×2 (14:14→20:52)
[2022-02-04] MEDS: Cholecalciferol (Vitamin D3) 25 MCG TABLET 50 MCG PO (14:14)
[2022-02-04] MEDS: levETIRAcetam 500 MG TABLET PO (14:14)
[2022-02-04] MEDS: Atorvastatin Calcium 80 MG TABLET PO (14:14)
[2022-02-04] MEDS: Topiramate 25 MG TABLET PO (14:14)
[2022-02-04] MEDS: Gabapentin 100 MG CAPSULE PO ×2 (14:14→20:51)
[2022-02-04] MEDS: Cyanocobalamin (Vitamin B-12) 1,000 MCG TABLET 1000 MCG PO (14:15)
[2022-02-04] MEDS: Aspirin 81 MG TAB.CHEW PO (14:15)
[2022-02-04 15:06] VITALS: BP 144/73; PULSE 82; RESP 18; TEMP 36.7; O2SAT 98
[2022-02-04] MEDS: ondansetron HCL 4 MG/2 ML VIAL IVPUSH (15:42)
[2022-02-04 16:07] LABS: Glucose, Whole Blood 237 mg/dL (60-115)
--- NOTE | 2022-02-04 16:12 | P.PNIM_ITS ---
Subjective Subjective Date of Service: 06/21/22 Interval History: pt seen today; reports Itching after HD Physical Exam Vital Signs: Vital Signs: Last Vital Signs Temp 98.0 F 02/04/22 15:06 Pulse 82 02/04/22 15:06 Resp 18 02/04/22 15:06 BP 144/73 H 02/04/22 15:06 Pulse Ox 98 02/04/22 15:06 O2 Del Method 02/04/22 15:06 O2 Flow Rate 2 02/02/22 14:15 FiO2 98 01/29/22 19:13 BMI result Body Mass Index 45.5 Gen: Appears be in no acute distress HEENT: NCAT, Moist mucosa. Pulmonary: Vesicular breath sounds, fair air entry CVS: Normal S1-S2 Abdomen: BS+, Soft, Nontender Extremities: Warm well perfused Neuro: Alert and awake. Objective Data Active Medications Acetaminophen (Acetaminophen 325 Mg Tablet) 650 mg PO Q6H PRN PRN Reason: Pain, Mild (Pain Scale 1-3) Last Admin: 01/30/22 20:05 Dose: 650 mg Documented By: HIRAM Aspirin (Aspirin 81 Mg Tab.Chew) 81 mg PO DAILY [facility] Last Admin: 02/04/22 14:15 Dose: 81 mg Documented By: KEIRA Atorvastatin Calcium (Atorvastatin Calcium 80 Mg Tablet) 80 mg PO DAILY [facility] Last Admin: 02/04/22 14:14 Dose: 80 mg Documented By: KEIRA Carvedilol (Carvedilol 12.5 Mg Tablet) 25 mg PO BID [facility]; Protocol Last Admin: 02/04/22 13:18 Dose: Not Given Documented By: KEIRA Non-Admin Reason: dialysis Cyanocobalamin (Cyanocobalamin (Vitamin B-12) 1,000 Mcg Tablet) 1,000 mcg PO DAILY [facility] Last Admin: 02/04/22 14:15 Dose: 1,000 mcg Documented By: KEIRA Dextrose (Dextrose 50 % 25 Gm/50 Ml Syringe) 25 gm IVPUSH Q15M PRN; Protocol PRN Reason: per Hypoglycemia Standing Ord. Diphenhydramine HCl (Diphenhydramine Hcl 25 Mg Capsule) 25 mg PO Q6H PRN PRN Reason: Itching Last Admin: 02/03/22 20:59 Dose: 25 mg Documented By: MILTON Diphenhydramine HCl (Diphenhydramine Hcl 50 Mg/Ml Vial) 25 mg IVPUSH ONCE ONE Stop: 02/04/22 16:12 Docusate Sodium (Docusate Sodium 100 Mg Capsule) 100 mg PO DAILY PRN PRN Reason: Constipation Last Admin: 01/31/22 08:44 Dose: 100 mg Documented By: JOSE M Famotidine (Famotidine 20 Mg Tablet) 20 mg PO TuThSa@1630 [facility] Gabapentin (Gabapentin 100 Mg Capsule) 100 mg PO TID [facility] Last Admin: 02/04/22 14:25 Dose: Not Given Documented By: KEIRA Non-Admin Reason: am dose given late Glucose (Glucose Gel 15 Gm Gel..Gram.) 15 gm PO Q15M PRN; Protocol PRN Reason: per Hypoglycemia Standing Ord. Heparin Sodium (Porcine) (Heparin Sodium,Porcine 5,000 Unit/Ml Vial) 5,000 unit SUBCUT Q8H [facility] Last Admin: 02/04/22 14:15 Dose: 5,000 unit Documented By: KEIRA Hydralazine HCl (Hydralazine Hcl 20 Mg/Ml Vial) 5 mg IVPUSH Q4H PRN; Protocol PRN Reason: sb>180 Hydrocortisone (Hydrocortisone 1 % Cream 28.35 Gm Tube) 1 appl TOPICAL BID PRN PRN Reason: Skin Irritation Last Admin: 01/31/22 17:28 Dose: 1 appl Documented By: JOSE M Insulin Human Lispro (Insulin Lispro 100 Unit/Ml 3 Ml Vial) 0 unit SUBCUT Q IDACHS [facility]; Protocol Last Admin: 02/04/22 13:19 Dose: Not Given Documented By: KEIRA Non-Admin Reason: in dialysis Lactulose (Lactulose 20 Gm/30 Ml Solution) 10 gm PO DAILY PRN PRN Reason: Constipation Levetiracetam (Levetiracetam 500 Mg Tablet) 500 mg PO DAILY [facility] Last Admin: 02/04/22 14:14 Dose: 500 mg Documented By: KEIRA Omeprazole (Omeprazole 20 Mg Capsule.Dr) 20 mg PO DAILY@0630 [facility] Last Admin: 02/04/22 06:34 Dose: 20 mg Documented By: KONRAD Ondansetron HCl (Ondansetron Hcl 4 Mg/2 Ml Vial) 4 mg IVPUSH Q8H PRN PRN Reason: Nausea and Vomiting Last Admin: 02/04/22 15:42 Dose: 4 mg Documented By: CARLOS Oxycodone HCl (Oxycodone Hcl Immed Release 5 Mg Tablet) 5 mg PO Q6H PRN PRN Reason: Breakthrough Pain Last Admin: 02/03/22 22:12 Dose: 5 mg Documented By: MILTON Polyethylene Glycol (Polyethylene Glycol 3350 17 Gm Powd.Pack) 17 gm PO DAILY PRN PRN Reason: consternation Last Admin: 01/31/22 08:43 Dose: 17 gm Documented By: JOSE M Senna/Docusate Sodium (Sennosides/Docusate Sodium Tablet) 2 tab PO BID [facility] Last Admin: 02/04/22 14:14 Dose: 2 tab Documented By: KEIRA Sodium Chloride (0.9 % Sodium Chloride Flush 3 Ml Syringe) 3 ml IVFLUSH QSHIFT [facility] Last Admin: 02/04/22 15:43 Dose: 3 ml Documented By: CARLOS Topiramate (Topiramate 25 Mg Tablet) 25 mg PO DAILY [facility] Last Admin: 02/04/22 14:14 Dose: 25 mg Documented By: KEIRA Torsemide (Torsemide 20 Mg Tablet) 40 mg PO BID@0800,1700 [facility]; Protocol Last Admin: 02/04/22 13:18 Dose: Not Given Documented By: KEIRA Non-Admin Reason: dialysis Vitamin D (Cholecalciferol (Vitamin D3) 25 Mcg Tablet) 50 mcg PO DAILY [facility] Last Admin: 02/04/22 14:14 Dose: 50 mcg Documented By: KEIRA Labs 02/05/22 06:31 02/05/22 06:31 Labs: Laboratory Results - last 24 hr 02/03/22 02/03/22 02/04/22 16:23 19:59 07:09 MCV MCH MCHC RDW Plt Count MPV Immature Gran % (Auto) Neut % (Auto) Lymph % (Auto) [place] % (Auto) Eos % (Auto) Baso % (Auto) Lymph # (Auto) [place] # (Auto) Eos # (Auto) Baso # (Auto) Abs Immat Gran (auto) Absolute Neuts (auto) Absolute Nucleated RBC Nucleated RBC % (auto) Anion Gap Estim Creat Clear Calc Estimated GFR POC Glucose 222 H 210 H 157 H Random Glucose Calcium 02/04/22 02/04/22 02/04/22 08:52 08:52 10:58 MCV 87.2 MCH 27.6 MCHC 31.6 RDW 15.9 Plt Count 241 MPV 10.2 Immature Gran % (Auto) 1.1 H Neut % (Auto) 68.4 Lymph % (Auto) 14.1 L [place] % (Auto) 9.0 Eos % (Auto) 6.7 H Baso % (Auto) 0.7 Lymph # (Auto) 1.0 L [place] # (Auto) 0.6 Eos # (Auto) 0.5 H Baso # (Auto) 0.1 Abs Immat Gran (auto) 0.08 H Absolute Neuts (auto) 4.8 Absolute Nucleated RBC 0.000 Nucleated RBC % (auto) 0.0 Anion Gap 16 Estim Creat Clear Calc 14.1 Estimated GFR 8 POC Glucose 156 H Random Glucose 214 H Calcium 8.4 D 02/04/22 16:04 MCV MCH MCHC RDW Plt Count MPV Immature Gran % (Auto) Neut % (Auto) Lymph % (Auto) [place] % (Auto) Eos % (Auto) Baso % (Auto) Lymph # (Auto) [place] # (Auto) Eos # (Auto) Baso # (Auto) Abs Immat Gran (auto) Absolute Neuts (auto) Absolute Nucleated RBC Nucleated RBC % (auto) Anion Gap Estim Creat Clear Calc Estimated GFR POC Glucose 237 H Random Glucose Calcium Assessment and Plan (1) Acute kidney injury superimposed on CKD: Status: Acute Plan 56-year-old female with a past medical history of hypertension, hyperlipidemia,? diabetes, diabetic nephropathy, CKD, CAREY on CPAP presented with multiple complaints including abdominal pain; noted to have EMIL on CKD admitted [facility] for further management.? During the hospital stay patient required hemodialysis; has been followed by Nephrology. EMIL on CKD: Patient has worsening diabetic nephropathy currently requiring hemodialysis.? Patient has PermCath placed on left chest on 02/02/2022.? Nephrology recommended hemodialysis on TTS Indeterminate troponins:? Likely reduced clearance.? Patient denies any chest pain. continue torsemide 40 mg p.o. b.i.d. Pt recevied HD on 01/16; 02/04. Reached out to Nephrology Dr Gonzales as well. Itching post HD: no rash noted. Benadryl prn Abdominal discomfort: Currently resolved.? Patient tolerating diet okay.? CT abdomen showed no acute findings. Hypertensive urgency: Resolved.? Pt was on Coreg 12.5mg at home-> increased to 25mg BID ; Blood pressure currently stable. Hypocalcemia:? Received calcium gluconate Anemia: Presumed to be secondary to anemia of chronic disease from CKD EPO per Nephro Patient received 1 unit of PRBC on . History is currently stable Stool guaiac negative Diabetes:? Insulin sliding scale. suri resumd on home Sliding scale and Ozempic upon discharge. Seizure disorder: Continue home Keppra plus topiramate CAREY: Continue home CPAP Quality Stroke Does the patient have a stroke diagnosis?: No VTE Prior VTE?: No VTE Risk Level:: Medical - moderate - high VTE Device Contraindication: Treatment Not Indicated VTE Drug Contraindication: N/A - Med Ordered
[2022-02-04] MEDS: Famotidine 20 MG TABLET PO (17:30)
[2022-02-04] MEDS: Torsemide 20 MG TABLET 40 MG PO (17:30)
[2022-02-04 19:11] VITALS: BP 111/54; PULSE 89; RESP 18; TEMP 36.2; O2SAT 97
[2022-02-04 19:32] LABS: Glucose, Whole Blood 166 mg/dL (60-115)
[2022-02-04] MEDS: carvediloL 12.5 MG TABLET 25 MG PO (20:52)
[2022-02-04] MEDS: oxyCODONE HCl Immed Release 5 MG TABLET PO (20:55)
[2022-02-05] MEDS: ondansetron HCL 4 MG/2 ML VIAL IVPUSH (00:47)
[2022-02-05] MEDS: diphenhydrAMINE HCL 50 MG/ML VIAL 25 MG IVPUSH (00:47)
[2022-02-05] MEDS: Heparin Sodium,Porcine 5,000 UNIT/ML VIAL 5000 UNIT SUBCUT ×3 (00:48→17:35)
[2022-02-05] MEDS: 0.9 % Sodium Chloride Flush 3 ML SYRINGE IVFLUSH ×2 (04:13→09:53)
[2022-02-05] MEDS: Omeprazole 20 MG CAPSULE.DR PO (05:57)
[2022-02-05 06:45] LABS: MANUAL DIFF FLAG NO
[2022-02-05 06:50] LABS: Basophils Absolute Auto 0.1 X10*3/uL (0.0-0.2); Basophils Percent Auto 0.7 % (0-2); Eosinophils Absolute Auto 0.4 X10*3/uL (0.0-0.4); Eosinophils Percent Auto 5.9 % (0-4); Hematocrit 23.6 % (37.0-47.0); Hemoglobin 7.6 g/dl (12.0-16.0); Imm Gran Abs Auto 0.11 X10*3/uL (0.00-0.03); Imm Gran Pct Auto 1.5 % (0.0-0.4); Lymphocytes Absolute Auto 0.9 X10*3/uL (1.2-4.9); Lymphocytes Percent Auto 11.9 % (20-40); Mean Corpuscular HGB Conc 32.2 g/dl (31.0-35.0); Mean Corpuscular Hemoglobin 28.3 pg (27.0-33.0); Mean Corpuscular Volume 87.7 fL (80.0-98.0); Monocytes Absolute Auto 0.8 X10*3/uL (0.1-1.2); Monocytes Percent Auto 10.5 % (2-11); Neutrophils Absolute Auto 5.2 x10*3/uL (2.0-8.3); Neutrophils Percent Auto 69.5 % (45-73); Platelet Count 206 X10*3/uL (160-400); Red Blood Count 2.69 X10*6/uL (4.20-5.50); Red Cell Distribution Width 15.8 % (11.0-16.0); White Blood Count 7.5 X10*3/uL (4.8-10.8)
[2022-02-05 07:24] VITALS: BP 128/62; PULSE 76; RESP 18; TEMP 36.6; O2SAT 98
[2022-02-05 07:39] LABS: Anion Gap 14 (12-20); Blood Urea Nitrogen 20 mg/dL (9-16); Calcium 8.2 mg/dL (8.4-10.2); Carbon Dioxide 22 mmol/L (22-29); Chloride 99 mmol/L (96-108); Creatinine Clr Calc Pharmacy 19.9; Estimated Glomerular Filt Rate 12; Glucose Random 142 mg/dL (60-115); Potassium 4.6 mmol/L (3.3-5.1); Sodium 130 mmol/L (135-145)
[2022-02-05 07:43] LABS: Glucose, Whole Blood 138 mg/dL (60-115)
[2022-02-05] MEDS: Atorvastatin Calcium 80 MG TABLET PO (08:11)
[2022-02-05] MEDS: Gabapentin 100 MG CAPSULE PO ×3 (08:12→20:15)
[2022-02-05] MEDS: levETIRAcetam 500 MG TABLET PO (08:12)
[2022-02-05] MEDS: Cholecalciferol (Vitamin D3) 25 MCG TABLET 50 MCG PO (08:12)
[2022-02-05] MEDS: Cyanocobalamin (Vitamin B-12) 1,000 MCG TABLET 1000 MCG PO (08:12)
[2022-02-05] MEDS: Torsemide 20 MG TABLET 40 MG PO ×2 (08:12→17:35)
[2022-02-05] MEDS: Topiramate 25 MG TABLET PO (08:12)
[2022-02-05] MEDS: carvediloL 12.5 MG TABLET 25 MG PO ×2 (08:12→20:15)
[2022-02-05] MEDS: Aspirin 81 MG TAB.CHEW PO (08:12)
[2022-02-05] MEDS: Sennosides/Docusate Sodium TABLET 2 TAB PO ×2 (08:12→20:15)
[2022-02-05] MEDS: oxyCODONE HCl Immed Release 5 MG TABLET PO ×3 (08:15→23:39)
[2022-02-05 10:44] VITALS: BP 128/62; PULSE 76; O2SAT 98
[2022-02-05] MEDS: diphenhydrAMINE HCL 25 MG CAPSULE PO ×2 (11:05→20:15)
[2022-02-05] MEDS: Sevelamer Carbonate Tablet 800 MG TABLET PO ×2 (11:05→17:37)
--- NOTE | 2022-02-05 11:26 | W.MHC.F2F ---
Service Date Service Date: 02/05/22 Encounter Date of encounter: 02/05/22 Reasons for Services Signs and symptoms assessed: Physical deconditioning, new dialysis Reason for physical therapy: home safety and mobility and therapeutic exercises Homebound: Leaving the home is medically contraindicated at this time without the asist of a device and/or another person due th the listed conditions above and below. Reason homebound: other Certification: Based on the above findings, I certify that this patient is confined to the home and needs intermittent shelter care, physical therapy and/or speech therapy, or continues to need occupational therapy. The patient is under my care, and I have initiated the establishment of the plan of care. The patient will be followed by a physician who will periodically review the plan of care.
--- NOTE | 2022-02-05 11:27 | MHC.CM.PN ---
Patient has been medically cleared for dc to home today, with services. A referral has been made to [facility], who has been made aware of today's dc. YOJANA has let JUAN know that MD is ok with a Tuesday02/08/22 SOC.
[2022-02-05 11:47] LABS: Glucose, Whole Blood 198 mg/dL (60-115)
[2022-02-05] MEDS: Insulin Lispro 100 UNIT/ML 3 ML VIAL SUBCUT ×3 (12:32→20:15)
--- NOTE | 2022-02-05 13:17 | HO.PM.IMPN ---
Subjective Subjective Date of Service: 02/05/22 Interval History: the patient was seen and evaluated this morning Laying in bed, feels comfortable overall Last dialysis session yesterday Denies any fever, chills or shortness of breath No reported other overnight events. Systemic review: No fever, chills or weakness No chest pain, palpitation No shortness of breath or coughing as edema improving No abdominal pain, nausea or vomiting No urinary symptoms No any rash or wounds Physical Exam Vital Signs: Vital Signs: Last Vital Signs Temp 97.8 F 02/05/22 07:24 Pulse 76 02/05/22 10:44 Resp 18 02/05/22 07:24 BP 128/62 02/05/22 10:44 Pulse Ox 98 02/05/22 10:44 O2 Del Method 02/05/22 07:24 O2 Flow Rate 2 02/02/22 14:15 FiO2 98 01/29/22 19:13 BMI result Body Mass Index 45.5 Const: Other: Constitutional : Alert, obese, not in distress Neck : Normal inspection, Supple, PermCath and chest wall with no surrounding erythema Cardiovascular : RRR, no JVP, trace lower extremity edema Respiratory : fair bilateral air entry, no crackles, wheezes or rhonchi Gastrointestinal: soft, lax, Normal bowel sounds, Non tender Skin : Warm, Dry, Neurological : Alert & oriented x3, No focal deficit Objective Data Active Medications Acetaminophen (Acetaminophen 325 Mg Tablet) 650 mg PO Q6H PRN PRN Reason: Pain, Mild (Pain Scale 1-3) Last Admin: 01/30/22 20:05 Dose: 650 mg Documented By: HIRAM Aspirin (Aspirin 81 Mg Tab.Chew) 81 mg PO DAILY [facility] Last Admin: 02/05/22 08:12 Dose: 81 mg Documented By: ADDISON Atorvastatin Calcium (Atorvastatin Calcium 80 Mg Tablet) 80 mg PO DAILY [facility] Last Admin: 02/05/22 08:11 Dose: 80 mg Documented By: ADDISON Carvedilol (Carvedilol 12.5 Mg Tablet) 25 mg PO BID [facility]; Protocol Last Admin: 02/05/22 08:12 Dose: 25 mg Documented By: ADDISON Cyanocobalamin (Cyanocobalamin (Vitamin B-12) 1,000 Mcg Tablet) 1,000 mcg PO DAILY [facility] Last Admin: 02/05/22 08:12 Dose: 1,000 mcg Documented By: ADDISON Dextrose (Dextrose 50 % 25 Gm/50 Ml Syringe) 25 gm IVPUSH Q15M PRN; Protocol PRN Reason: per Hypoglycemia Standing Ord. Diphenhydramine HCl (Diphenhydramine Hcl 25 Mg Capsule) 25 mg PO Q6H PRN PRN Reason: Itching Last Admin: 02/05/22 11:05 Dose: 25 mg Documented By: ADDISON Docusate Sodium (Docusate Sodium 100 Mg Capsule) 100 mg PO DAILY PRN PRN Reason: Constipation Last Admin: 01/31/22 08:44 Dose: 100 mg Documented By: JOSE M Famotidine (Famotidine 20 Mg Tablet) 20 mg PO TuThSa@1630 [facility] Last Admin: 02/04/22 17:30 Dose: 20 mg Documented By: CARLOS Gabapentin (Gabapentin 100 Mg Capsule) 100 mg PO TID [facility] Last Admin: 02/05/22 08:12 Dose: 100 mg Documented By: ADDISON Glucose (Glucose Gel 15 Gm Gel..Gram.) 15 gm PO Q15M PRN; Protocol PRN Reason: per Hypoglycemia Standing Ord. Heparin Sodium (Porcine) (Heparin Sodium,Porcine 5,000 Unit/Ml Vial) 5,000 unit SUBCUT Q8H [facility] Last Admin: 02/05/22 08:05 Dose: 5,000 unit Documented By: ADDISON Hydralazine HCl (Hydralazine Hcl 20 Mg/Ml Vial) 5 mg IVPUSH Q4H PRN; Protocol PRN Reason: sb>180 Hydrocortisone (Hydrocortisone 1 % Cream 28.35 Gm Tube) 1 appl TOPICAL BID PRN PRN Reason: Skin Irritation Last Admin: 01/31/22 17:28 Dose: 1 appl Documented By: JOSE M Insulin Human Lispro (Insulin Lispro 100 Unit/Ml 3 Ml Vial) 0 unit SUBCUT QIDACHS [facility]; Protocol Last Admin: 02/05/22 12:32 Dose: 2 unit Documented By: ADDISON Lactulose (Lactulose 20 Gm/30 Ml Solution) 10 gm PO DAILY PRN PRN Reason: Constipation Levetiracetam (Levetiracetam 500 Mg Tablet) 500 mg PO DAILY [facility] Last Admin: 02/05/22 08:12 Dose: 500 mg Documented By: ADDISON Omeprazole (Omeprazole 20 Mg Capsule.Dr) 20 mg PO DAILY@0630 [facility] Last Admin: 02/05/22 05:57 Dose: 20 mg Documented By: SOL Ondansetron HCl (Ondansetron Hcl 4 Mg/2 Ml Vial) 4 mg IVPUSH Q8H PRN PRN Reason: Nausea and Vomiting Last Admin: 02/05/22 00:47 Dose: 4 mg Documented By: SOL Oxycodone HCl (Oxycodone Hcl Immed Release 5 Mg Tablet) 5 mg PO Q6H PRN PRN Reason: Breakthrough Pain Last Admin: 02/05/22 08:15 Dose: 5 mg Documented By: ADDISON Polyethylene Glycol (Polyethylene Glycol 3350 17 Gm Powd.Pack) 17 gm PO DAILY PRN PRN Reason: consternation Last Admin: 01/31/22 08:43 Dose: 17 gm Documented By: JOSE M Senna/Docusate Sodium (Sennosides/Docusate Sodium Tablet) 2 tab PO BID [facility] Last Admin: 02/05/22 08:12 Dose: 2 tab Documented By: ADDISON Sevelamer Carbonate (Sevelamer Carbonate Tablet 800 Mg Tablet) 800 mg PO TIDWM [facility] Last Admin: 02/05/22 11:05 Dose: 800 mg Documented By: ADDISON Sodium Chloride (0.9 % Sodium Chloride Flush 3 Ml Syringe) 3 ml IVFLUSH QSHIFT [facility] Last Admin: 02/05/22 09:53 Dose: 3 ml Documented By: ADDISON Topiramate (Topiramate 25 Mg Tablet) 25 mg PO DAILY [facility] Last Admin: 02/05/22 08:12 Dose: 25 mg Documented By: ADDISON Torsemide (Torsemide 20 Mg Tablet) 40 mg PO BID@0800,1700 [facility]; Protocol Last Admin: 02/05/22 08:12 Dose: 40 mg Documented By: ADDISON Vitamin D (Cholecalciferol (Vitamin D3) 25 Mcg Tablet) 50 mcg PO DAILY [facility] Last Admin: 02/05/22 08:12 Dose: 50 mcg Documented By: ADDISON Labs CBC & Chem 7: 02/05/22 06:31 02/05/22 06:31 Labs: Laboratory Results - last 24 hr 02/04/22 02/04/22 02/05/22 16:04 19:29 06:31 MCV 87.7 MCH 28.3 MCHC 32.2 RDW 15.8 Plt Count 206 MPV 10.0 Immature Gran % (Auto) 1.5 H Neut % (Auto) 69.5 Lymph % (Auto) 11.9 L [place] % (Auto) 10.5 Eos % (Auto) 5.9 H Baso % (Auto) 0.7 Lymph # (Auto) 0.9 L [place] # (Auto) 0.8 Eos # (Auto) 0.4 Baso # (Auto) 0.1 Abs Immat Gran (auto) 0.11 H Absolute Neuts (auto) 5.2 Absolute Nucleated RBC 0.000 Nucleated RBC % (auto) 0.0 Anion Gap Estim Creat Clear Calc Estimated GFR POC Glucose 237 H 166 H Random Glucose Calcium 02/05/22 02/05/22 02/05/22 06:31 07:28 11:34 MCV MCH MCHC RDW Plt Count MPV Immature Gran % (Auto) Neut % (Auto) Lymph % (Auto) [place] % (Auto) Eos % (Auto) Baso % (Auto) Lymph # (Auto) [place] # (Auto) Eos # (Auto) Baso # (Auto) Abs Immat Gran (auto) Absolute Neuts (auto) Absolute Nucleated RBC Nucleated RBC % (auto) Anion Gap 14 Estim Creat Clear Calc 19.9 Estimated GFR 12 POC Glucose 138 H 198 H Random Glucose 142 H Calcium 8.2 L Assessment and Plan (1) ESRD on hemodialysis: Status: Acute (2) Acute kidney injury superimposed on CKD: Status: Acute Plan 56-year-old female with a past medical history of hypertension, hyperlipidemia,? diabetes, diabetic nephropathy, CKD, CAREY on CPAP presented with multiple complaints including abdominal pain; noted to have EMIL on CKD admitted to the hospital for further management.? During the hospital stay patient required hemodialysis; has been followed by Nephrology. EMIL on CKD5 Patient has worsening diabetic nephropathy currently requiring hemodialysis.? Patient has PermCath placed on left chest on 02/02/2022.? Nephrology recommended hemodialysis on TTS continue torsemide 40 mg p.o. b.i.d. Outpatient dialysis center can start her sessions next Tuesday, will keep her overnight to do dialysis tomorrow then plan to DC Hypertensive urgency Controlled Continue Coreg 25 mg b.i.d. Hypocalcemia Resolved, Received calcium gluconate Anemia secondary to anemia of chronic disease from CKD EPO per Nephro Patient received 1 unit of PRBC on . History is currently stable Stool guaiac negative Diabetes:? Insulin sliding scale. suri resumd on home Sliding scale and Ozempic upon discharge. Seizure disorder: Continue home Keppra plus topiramate CAREY: Continue home CPAP The patient will need overnight hospital stay for dialysis session as inpatient for fluid overload and acute kidney failure pending outpatient dialysis center Quality Stroke Does the patient have a stroke diagnosis?: No VTE Prior VTE?: No VTE Risk Level:: Medical - moderate - high VTE Device Contraindication: Treatment Not Indicated VTE Drug Contraindication: N/A - Med Ordered
--- NOTE | 2022-02-05 13:24 | MHC.CM.PN ---
YOJANA spoke with Khalida from [facility] HD @ [phone] and faxed her the requested Hep B panel to [phone]. Patient will receive HD here tomorrow and then be dc to home, after receiving HD and then start HD at [facility] on 02/09/2022, arriving at 6AM. . CM review entire dc plan with Patient and her at bedside.
--- NOTE | 2022-02-05 13:37 | MHC.CM.PN ---
Since dc to home has been delayed a day, [facility] SOC will be 02/09/2022 (sooner if possible, per [facility]).
--- NOTE | 2022-02-05 15:19 | PM.PNNEP ---
Subjective Subjective Date of Service: 02/05/22 Interval history: the patient was seen and evaluated this morning Laying in bed, feels comfortable overall Last dialysis session yesterday Feels OK Physical Exam Vital Signs: Vital Signs: Last Vital Signs Temp 97.8 F 02/05/22 07:24 Pulse 76 02/05/22 10:44 Resp 18 02/05/22 07:24 BP 128/62 02/05/22 10:44 Pulse Ox 98 02/05/22 10:44 O2 Del Method 02/05/22 07:24 O2 Flow Rate 2 02/02/22 14:15 FiO2 98 01/29/22 19:13 BMI result Body Mass Index 45.5 Const: Other: Constitutional : Alert, obese, not in distress Neck : Normal inspection, Supple, PermCath and chest wall with no surrounding erythema Cardiovascular : RRR, no JVP, trace lower extremity edema Respiratory : fair bilateral air entry, no crackles, wheezes or rhonchi Gastrointestinal: soft, lax, Normal bowel sounds, Non tender Skin : Warm, Dry, Neurological : Alert & oriented x3, No focal deficit Objective Data Labs CBC & Chem 7: 02/05/22 06:31 02/05/22 06:31 Labs: Laboratory Results - last 24 hr 02/04/22 02/04/22 02/05/22 16:04 19:29 06:31 WBC 7.5 RBC 2.69 L Hgb 7.6 L Hct 23.6 L MCV 87.7 MCH 28.3 MCHC 32.2 RDW 15.8 Plt Count 206 MPV 10.0 Immature Gran % (Auto) 1.5 H Neut % (Auto) 69.5 Lymph % (Auto) 11.9 L [place] % (Auto) 10.5 Eos % (Auto) 5.9 H Baso % (Auto) 0.7 Lymph # (Auto) 0.9 L [place] # (Auto) 0.8 Eos # (Auto) 0.4 Baso # (Auto) 0.1 Abs Immat Gran (auto) 0.11 H Absolute Neuts (auto) 5.2 Absolute Nucleated RBC 0.000 Nucleated RBC % (auto) 0.0 Sodium Potassium Chloride Carbon Dioxide Anion Gap BUN Creatinine Estim Creat Clear Calc Estimated GFR POC Glucose 237 H 166 H Random Glucose Calcium 02/05/22 02/05/22 02/05/22 06:31 07:28 11:34 WBC RBC Hgb Hct MCV MCH MCHC RDW Plt Count MPV Immature Gran % (Auto) Neut % (Auto) Lymph % (Auto) [place] % (Auto) Eos % (Auto) Baso % (Auto) Lymph # (Auto) [place] # (Auto) Eos # (Auto) Baso # (Auto) Abs Immat Gran (auto) Absolute Neuts (auto) Absolute Nucleated RBC Nucleated RBC % (auto) Sodium 130 L Potassium 4.6 Chloride 99 Carbon Dioxide 22 Anion Gap 14 BUN 20 H Creatinine 3.75 H Estim Creat Clear Calc 19.9 Estimated GFR 12 POC Glucose 138 H 198 H Random Glucose 142 H Calcium 8.2 L Microbiology Microbiology Results: Microbiology 01/26/22 09:02 Blood - Venous Blood Culture - Final No growth after 5 days. 01/26/22 09:02 Blood - Venous Blood Culture - Final No growth after 5 days. 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 anemia due to CKD interested in home therapy. Will need home visit and training. Can be coordinated by outpatient HD unit discussed with her renal replacement therapy options REC HD per TTS scheduled HD in AM _ ? dc after s/p permcath placement 02/02 CLAUS per protocol renal diet phosphate binders outpatient dialysis arranged at [place] dialysis unit [id number] (2) Metabolic acidosis: Status: Acute Time Spent With Patient Time: Total time spent is greater than 50% in coordination of care (as documented) at patient's floor/unit and/or counseling patient: Progress Note: Quality Stroke Does the patient have a stroke diagnosis?: No
[2022-02-05 16:00] VITALS: BP 128/69; PULSE 66; RESP 18; TEMP 36.9; O2SAT 100
[2022-02-05 16:09] LABS: Glucose, Whole Blood 200 mg/dL (60-115)
[2022-02-05 19:53] LABS: Glucose, Whole Blood 227 mg/dL (60-115)
[2022-02-05 20:00] VITALS: BP 119/65; PULSE 71; RESP 20; TEMP 36.1; O2SAT 100
[2022-02-06] VITALS: BP 136/63; PULSE 86; RESP 18; TEMP 37; O2SAT 94
[2022-02-06] MEDS: Heparin Sodium,Porcine 5,000 UNIT/ML VIAL 5000 UNIT SUBCUT ×2 (00:43→08:42)
[2022-02-06] MEDS: Prochlorperazine Maleate 5 MG TABLET PO (00:43)
[2022-02-06] MEDS: diphenhydrAMINE HCL 25 MG CAPSULE PO (03:35)
[2022-02-06 04:00] VITALS: BP 128/74; PULSE 73; RESP 20; TEMP 37; O2SAT 98
[2022-02-06] MEDS: Omeprazole 20 MG CAPSULE.DR PO (06:32)
[2022-02-06] MEDS: oxyCODONE HCl Immed Release 5 MG TABLET PO (06:35)
[2022-02-06 07:00] VITALS: BP 110/59; PULSE 72; RESP 18; TEMP 36.6; O2SAT 98
[2022-02-06 07:14] LABS: Glucose, Whole Blood 138 mg/dL (60-115)
[2022-02-06] MEDS: Acetaminophen 325 MG TABLET 650 MG PO (08:43)
[2022-02-06] MEDS: Cyanocobalamin (Vitamin B-12) 1,000 MCG TABLET 1000 MCG PO (08:43)
[2022-02-06] MEDS: Gabapentin 100 MG CAPSULE PO (08:43)
[2022-02-06] MEDS: Topiramate 25 MG TABLET PO (08:43)
[2022-02-06] MEDS: Aspirin 81 MG TAB.CHEW PO (08:43)
[2022-02-06] MEDS: Sevelamer Carbonate Tablet 800 MG TABLET PO (08:44)
[2022-02-06] MEDS: levETIRAcetam 500 MG TABLET PO (08:44)
[2022-02-06] MEDS: Atorvastatin Calcium 80 MG TABLET PO (08:44)
[2022-02-06] MEDS: Sennosides/Docusate Sodium TABLET 2 TAB PO (08:44)
[2022-02-06] MEDS: Cholecalciferol (Vitamin D3) 25 MCG TABLET 50 MCG PO (08:44)
--- NOTE | 2022-02-06 10:37 | MHC.CM.PN ---
Female 56 DX Hypertensive emergency new HD She is discharged today after HD. [facility] Guerrero has been notified of discharge today. The patient is scheduled for HD on 02/09, Tuesday. She has a 6am chair time /TUE. DP home with new [facility]. They have been notified of discharge today. A face 2 face has been requested for new home services. Family will provide transport home.
--- NOTE | 2022-02-06 11:39 | PM.DS ---
DS: Providers Provider Date of Service: 02/05/22 Date of admission: 01/23/22 01:40 Primary care physician: Delfina Butler MD Consults: 01/23/22 01:39 Consult to Nephrology Routine Consulting Provider: [facility] Reason for consultation: emil on ckd Has provider been notified: No DS: Diagnosis Discharge Diagnosis (1) CKD (chronic kidney disease) stage 5, GFR less than 15 ml/min: Status: Acute (2) ESRD on hemodialysis: Status: Acute (3) Hypocalcemia: Status: Acute (4) Hypertensive urgency: Status: Acute DS: Summary Hospital Course Hospital Course: Admission note HPI 56-year-old female with past medical history of diabetes, HLD, chronic anemia, HTN, obesity, sleep apnea not currently on CPAP machine home a besides hospital with multiple complaints.? She reports that she came to the hospital due to constant right upper quadrant abdominal pain as well as back lower pain.? Patient reports S she saw her doctor the day prior, had labs done, which showed abduct kidney function, she was supposed to also have injection in her lower back.? The pain was so severe that she decided to come to the ED. she is also complaining of right flank pain radiating to the wound, reports urinary frequency, patient is also complaining of nausea, no vomiting, she also complaining of headache.? She reports compliance with her antihypertensives.? She also has complaints of midsternal chest pain as well as palpitations.? Reports chest pain as heavy, constant, nonradiating. Patient otherwise denies any change in vision, no shortness of breath, no diarrhea constipation, lower extremity edema although reports balance is off, and has pain in her feet bilaterally.? On arrival to the ED patient's blood pressure is recorded as 228/95 Labs are significant for WBC count of 8.8, hemoglobin of 7.7 which is around baseline pH of 7.23, pCO2 of 37, bicarb of 17, BUN of 67, creatinine of 6.17, glucose of 469, calcium of 7.6, UA positive for small blood and RBC Abdomen pelvic CT shows small obstructing right renal stone with no left renal stone hydronephrosis, venous duplex shows no DVT of lower extremity Troponin Hospital course The patient presented to the hospital with abdominal pain. Noted 12 acute kidney injury on CKD stage 5. Evaluated by Nephrology team as kidney biopsy was showing diabetic nephropathy and sclerosing. Temporary dialysis catheter was placed at the beginning and started on dialysis. PermCath was placed on 02/02/2022 with dialysis continued for 3 sessions with good response as significant fluid overload resolved. Started on torsemide 40 mg b.i.d.. Plan to be followed as outpatient with Nephrology to continue dialysis as an outpatient on TTS. Hypertensive urgency on presentation. Improved after extra fluid removal by dialysis and increasing carvedilol to 25 mg daily. To be monitored at home and followed by Nephrology as outpatient. Found to have Hypocalcemia. Received calcium gluconate with fair response Noted to have Anemia. Presumed to be secondary to anemia of chronic disease from CKD. Receiving a unit of blood transfusion with good response.EPO per protocol to be followed by Nephrology. Start torsemide 40 mg b.i.d. Increase carvedilol for 25 mg b.i.d. Dialysis as outpatient Time Spent with Patient Time attestation: Total time spent providing and/or coordinating discharge services: Discharge coordination time: Greater than 30 minutes Quality: Safe Use of Opioids Does Pt have an Active Cancer Diagnosis on the Problem List?: No Quality: Stroke Does the patient have a stroke diagnosis?: No Physical Exam Vital Signs: Vital Signs: Last Vital Signs Temp 97.8 F 02/05/22 07:24 Pulse 76 02/05/22 10:44 Resp 18 02/05/22 07:24 BP 128/62 02/05/22 10:44 Pulse Ox 98 02/05/22 10:44 O2 Del Method 02/05/22 07:24 O2 Flow Rate 2 02/02/22 14:15 FiO2 98 01/29/22 19:13 BMI result Body Mass Index 45.5 Const: Other: Constitutional : Alert, obese, not in distress Neck : Normal inspection, Supple, PermCath and chest wall with no surrounding erythema Cardiovascular : RRR, no JVP, trace lower extremity edema Respiratory : fair bilateral air entry, no crackles, wheezes or rhonchi Gastrointestinal: soft, lax, Normal bowel sounds, Non tender Skin : Warm, Dry, Neurological : Alert & oriented x3, No focal deficit DS: Data Data Completed and Pending Completed studies during hospitalization [Text1]: Procedures Assistance with Respiratory Ventilation, Less than 24 Consecutive Hours, Continuous Positive Airway Pressure (12/24/21) Excision of Left Kidney, Percutaneous Approach, Diagnostic (12/24/21) Transfusion of Nonautologous Red Blood Cells into Peripheral Vein, Percutaneous Approach (12/24/21) Labs on day of discharge: Laboratory Results - last 24 hr 02/04/22 02/04/22 02/04/22 10:58 16:04 19:29 WBC RBC Hgb Hct MCV MCH MCHC RDW Plt Count MPV Immature Gran % (Auto) Neut % (Auto) Lymph % (Auto) [place] % (Auto) Eos % (Auto) Baso % (Auto) Lymph # (Auto) [place] # (Auto) Eos # (Auto) Baso # (Auto) Abs Immat Gran (auto) Absolute Neuts (auto) Absolute Nucleated RBC Nucleated RBC % (auto) Sodium Potassium Chloride Carbon Dioxide Anion Gap BUN Creatinine Estim Creat Clear Calc Estimated GFR POC Glucose 156 H 237 H 166 H Random Glucose Calcium 02/05/22 02/05/22 02/05/22 06:31 06:31 07:28 WBC 7.5 RBC 2.69 L Hgb 7.6 L Hct 23.6 L MCV 87.7 MCH 28.3 MCHC 32.2 RDW 15.8 Plt Count 206 MPV 10.0 Immature Gran % (Auto) 1.5 H Neut % (Auto) 69.5 Lymph % (Auto) 11.9 L [place] % (Auto) 10.5 Eos % (Auto) 5.9 H Baso % (Auto) 0.7 Lymph # (Auto) 0.9 L [place] # (Auto) 0.8 Eos # (Auto) 0.4 Baso # (Auto) 0.1 Abs Immat Gran (auto) 0.11 H Absolute Neuts (auto) 5.2 Absolute Nucleated RBC 0.000 Nucleated RBC % (auto) 0.0 Sodium 130 L Potassium 4.6 Chloride 99 Carbon Dioxide 22 Anion Gap 14 BUN 20 H Creatinine 3.75 H Estim Creat Clear Calc 19.9 Estimated GFR 12 POC Glucose 138 H Random Glucose 142 H Calcium 8.[address] scan - head: Radiologist's impression: ITS Impressions Abdomen/Pelvis CT 01/22/22 21:37 IMPRESSION: Small nonobstructing right renal stone. No left renal stone or hydronephrosis.. Fleischner guidelines were followed. Venous Duplex 01/22/22 22:10 IMPRESSION: No DVT demonstrated in the right lower extremity with the caveat that the right peroneal vein was not visualized. Chest X-Ray 01/26/22 11:51 IMPRESSION: Unremarkable examination. Insertion Non-Tunneled Catheter 01/26/22 18:45 IMPRESSION: Right internal jugular 12-[place] 13 cm in length [facility]kar dialysis catheter placement. Chest X-Ray 01/29/22 08:22 IMPRESSION: No acute cardiopulmonary process. Insertion Tunneled Catheter 02/02/22 12:15 IMPRESSION: Successful fluoroscopy-guided conversion of right temporary dialysis catheter to a 14 [place] 23 cm long dual lumen permacatheter. Fluoroscopy time: 0.9 minutes. Dose: 0.186 cGy cm square. Images: 1. Discharge Plan Discharge Anticipated Discharge Date/Time: 02/04/22 10:58 Patient Disposition: Home Health Service Discharge Diagnosis: EMIL on CKD 5 Referrals: [facility] [Outside] - 1 Week Moises Gonzales MD [Physician] - 2 Weeks Delfina Butler MD [Primary Care Provider] - 1 Week Discharge Medications: New torsemide 20 mg Tablet 40 mg PO BID@0800,1700 30 Days Qty: 120 2RF Protocol: Hold for SBP< HOLD for SBP < : 90 carvedilol 12.5 mg Tablet 25 mg PO BID 30 Days Qty: 120 2RF Protocol: Hold for SBP/HR < HOLD for SBP < : 90 HOLD for HR < : 60 Continued atorvastatin 80 mg tablet 1 tab PO DAILY loperamide 2 mg capsule 1 cap PO Q6H PRN (Reason: Diarrhea) cyanocobalamin (vitamin B-12) [Vitamin B-12] 1,000 mcg tablet 1 tab PO DAILY topiramate 25 mg tablet 1 tab PO DAILY famotidine 20 mg tablet 1 tab PO DAILY pantoprazole 40 mg tablet,delayed release (DR/EC) 1 tab PO DAILY aspirin 81 mg tablet,chewable 1 tab PO DAILY gabapentin 100 mg capsule 1 cap PO TID insulin lispro 100 unit/mL insulin pen See Protocol subcut TIDAC Protocol: Insulin Correction Scale Less than or equal to 110 ---- Give (units): 0 111 to 150 Give (units): 0 151 to 200 Give (units): 2 201 to 250 Give (units): 4 251 to 300 Give (units): 6 301 to 350 Give (units): 8 Greater than 350 Give (units): 10 Call MD if Blood Glucose > : 350 Rx Instructions: sliding scale lactulose 10 gram/15 mL solution 15 ml PO DAILY PRN (Reason: Constipation) cholecalciferol (vitamin D3) [Vitamin D3] 50 mcg (2,000 unit) capsule 1 cap PO DAILY Ozempic 1 mg/dose (2 mg/1.5 mL) pen injector 1 mg SUBCUT SA@0900 clindamycin phosphate 1 % gel 1 applic topical BID betamethasone dipropionate 0.05 % ointment 1 appl topical BID calcipotriene 0.005 % ointment 1 applic topical BID levetiracetam 500 mg tablet 500 mg PO DAILY Qty: 30 0RF hydrocortisone 2.5 % cream 1 appl topical BID PRN (Reason: Skin Irritation) Rx Instructions: Apply to breast and buttocks for flares fluocinonide 0.05 % cream 1 applic topical BID Discontinued carvedilol 12.5 mg tablet 1 tab PO BID amlodipine 5 mg Tablet 5 mg PO DAILY 30 Days Qty: 30 0RF Protocol: Hold for SBP< HOLD for SBP < : 90 doxycycline hyclate 100 mg tablet 1 tab PO BID Discharge Orders: Discharge Order (Routine); Ordered 02/05/22 Ordered By: Frida Bee Activity on Discharge: As tolerated Stand Alone Forms: Patient Portal Discharge page Care Plan Goals: Please follow up with your PCP king week. Please maintain your Scheduled Hemodialysis appointments. Follow up with your patient services technician in a week. Health Concerns: Please take Low potassium diet. Plan of Treatment: You were admitted to the hospital for evaluation of worsening kidney function. Followed by Nephrology as dialysis was started during the hospital stay. You will need dialysis as outpatient and to follow with Nephrology as planned STT. Blood pressure medications changed for better control of her blood pressure. Increased Carvediolol at 25 mg twice daily. New Medication Torsemide started at 40mg Every 12hrs. Assessment: Please check your Blood pressure Daily, maintain a log and Show it to your PCP/Nephrology for further dose adjustments if needed. Patient Instructions: Chronic Kidney Disease Diet (DC)
--- NOTE | 2022-02-06 14:12 | PM.PNNEP ---
Subjective Subjective Date of Service: 02/06/22 Interval history: the patient was seen and evaluated on HD Laying in bed, feels comfortable overall Last dialysis session yesterday Feels OK Physical Exam Vital Signs: Vital Signs: Last Vital Signs Temp 97.9 F 02/06/22 07:00 Pulse 72 02/06/22 07:00 Resp 18 02/06/22 07:00 BP 110/59 L 02/06/22 07:00 Pulse Ox 98 02/06/22 07:00 O2 Del Method 02/06/22 07:00 O2 Flow Rate 2 02/02/22 14:15 FiO2 98 01/29/22 19:13 BMI result Body Mass Index 45.5 Const: Other: Constitutional : Alert, obese, not in distress Neck : Normal inspection, Supple, PermCath and chest wall with no surrounding erythema Cardiovascular : RRR, no JVP, trace lower extremity edema Respiratory : fair bilateral air entry, no crackles, wheezes or rhonchi Gastrointestinal: soft, lax, Normal bowel sounds, Non tender Skin : Warm, Dry, Neurological : Alert & oriented x3, No focal deficit Objective Data Labs CBC & Chem 7: 02/05/22 06:31 02/05/22 06:31 Labs: Laboratory Results - last 24 hr 02/05/22 02/05/22 02/06/22 16:05 19:37 07:00 POC Glucose 200 H 227 H 138 H Microbiology Microbiology Results: Microbiology 01/26/22 09:02 Blood - Venous Blood Culture - Final No growth after 5 days. 01/26/22 09:02 Blood - Venous Blood Culture - Final No growth after 5 days. Procedures Date of Service Date of Service: 02/06/22 Assessment & Plan Assessment and plan (1) CKD (chronic kidney disease) stage 5, GFR less than 15 ml/min: Status: Acute Assessment and Plan: CKD V biopsy proven diabetic nephropathy with 60% global sclerosis and 70% interstitial fibrosis Severe hypertensive disease ontop of this, with severe hyaline scerosis Started on HD this admission with temp dialysis catheter. anemia due to CKD interested in home therapy. Will need home visit and training. Can be coordinated by outpatient HD unit discussed with her renal replacement therapy options REC HD per TTS scheduled ON HD now ? dc after s/p permcath placement 02/02 CLAUS per protocol renal diet phosphate binders outpatient dialysis arranged at [place] [facility] tts1 (2) Metabolic acidosis: Status: Acute Time Spent With Patient Time: Total time spent is greater than 50% in coordination of care (as documented) at patient's floor/unit and/or counseling patient: Progress Note: Quality Stroke Does the patient have a stroke diagnosis?: No
--- NOTE | 2022-02-07 13:00 | MHC.CM.PN ---
CM RECEIVED A CALL FROM PT WHO REPORTS HER SCRIPTS WERE SENT TO [facility] WHICH IS CLOSED OVER WEEKENDS, PT REQUESTING SCRIPTS BE SENT TO [facility] [place] [facility] NOTIFIED VIA [email or web address].
== END 2022-02-06 14:46 | disposition home health service (06) | DRG 470 ==
LOC: HO.ED 23:55 → HO.EDOVER 01-23 01:55 → HO.IMC 01-23 16:44
PROVIDERS: Family Medicine; Hospitalist; Internal Medicine Hypertension Specialist; Nurse Practitioner Acute Care; Physician Assistant; Physician Assistant Medical; Radiology Diagnostic Radiology; Admitting Provider Internal Medicine; Emergency Provider Emergency Medicine; PCP Internal Medicine; Visit Provider Student in an Organized Health Care Education/Training Program
PROC: 02HV33Z Insertion of Infusion Device into Superior Vena Cava, Percutaneous Approach (ICD-10-PCS; principal; 2022-01-26 14:30)
DX: I12.0 Hypertensive chronic kidney disease with stage 5 chronic kidney disease or end stage renal disease (principal); N17.9 Acute kidney failure, unspecified; E87.20 Acidosis, unspecified; D63.1 Anemia in chronic kidney disease; E83.51 Hypocalcemia; E11.22 Type 2 diabetes mellitus with diabetic chronic kidney disease; N18.5 Chronic kidney disease, stage 5; Z68.41 Body mass index [BMI] 40.0-44.9, adult; E11.65 Type 2 diabetes mellitus with hyperglycemia; M54.9 Dorsalgia, unspecified; G40.909 Epilepsy, unspecified, not intractable, without status epilepticus; G89.29 Other chronic pain; I16.0 Hypertensive urgency; E11.40 Type 2 diabetes mellitus with diabetic neuropathy, unspecified; E66.01 Morbid (severe) obesity due to excess calories; G47.33 Obstructive sleep apnea (adult) (pediatric); E87.5 Hyperkalemia; Z20.822 Contact with and (suspected) exposure to COVID-19; Z91.040 Latex allergy status; Z88.0 Allergy status to penicillin; Z79.4 Long term (current) use of insulin; Z79.82 Long term (current) use of aspirin; Z79.899 Other long term (current) drug therapy
CPT/HCPCS: 36415; 36556; 36558; 71045; 71046; 74176; 80048; 80053; 81001; 82009; 82272; 82607; 82728; 82746; 82803; 82947; 83036; 83540; 83615; 83880; 84145; 84484; 85014; 85018; 85025; 85027; 85045; 85610; 85730; 86704; 86706; 86850; 86900; 86901; 86923; 87040; 87340; 87635; 90935; 90999; 93005; 93971; 94660; 97162; 99152; 99285; C1752; C1769; J0610; J0696; J0885; J1170; J1200; J2270; J2405; P9016; P9047

== ENCOUNTER 2022-02-21 13:55 | Emergency (ER) | payer OTHER, SELFPAY ==
--- NOTE | 2022-02-21 | ECG_ITS ---
Test Reason : CHEST PRESSURE Blood Pressure : / mmHG Vent. Rate : 068 BPM Atrial Rate : 068 BPM P-R Int : 156 ms QRS Dur : 098 ms QT Int : 472 ms P-R-T Axes : 041 -04 032 degrees QTc Int : 501 ms Normal sinus rhythm Minimal voltage criteria for LVH, may be normal variant ( R in aVL ) Prolonged QT Abnormal ECG When compared with ECG of 23-JAN-2022 00:08, Nonspecific T wave abnormality, improved in Lateral leads Referred By: Generic ED Physician Electronically Signed By:XAVI SHERIDAN MD
--- NOTE | ~2022-02-21 | CT_ITS ---
EXAMINATION: CT SOFT TISSUE NECK WITHOUT CONTRAST CLINICAL INFORMATION: Question fluid collection at left sternocleidomastoid COMPARISON: Chest CT from earlier today TECHNIQUE: Helical imaging was performed in the axial plane with generation of coronal and sagittal reformatted images. This CT examination was performed using dose optimization techniques as appropriate, variously including the following: *Automated exposure control *Adjustment of mA and/or kV according to patient size (this includes techniques or standardized protocols for targeted exams where dose is matched to indication/reason for exam; i.e. extremities or head) *Use of iterative reconstruction technique DLP: 770 mGy-cm FINDINGS: No fluid collection identified adjacent to the left sternocleidomastoid muscle. The low-density structure partially visualized on earlier chest CT corresponds to the left submandibular gland. The nasopharynx, oropharynx, and hypopharynx are patent. No mucosal pharyngeal abnormality is seen. The parapharyngeal fat is preserved. The earth mover, parotid, and submandibular spaces appear normal and symmetric bilaterally. Several bilateral subcentimeter cervical lymph nodes are seen without adenopathy. Partially visualized right IJ central line. Visualized portions of the brain parenchyma are unremarkable. Partially opacified left mastoid air cells. The paranasal sinuses are clear. The visualized orbits are unremarkable. The mandibular condyles are well-seated in the condylar fossa. No acute fracture is seen. Please see today's earlier chest CT report for discussion of intrathoracic findings. CT/CT soft tissue neck wo IV con IMPRESSION: No fluid collection identified adjacent to the left sternocleidomastoid muscle. The low-density structure partially visualized on earlier chest CT corresponds to the left submandibular gland.
--- NOTE | ~2022-02-21 | CT_ITS ---
EXAMINATION: CT CHEST WITHOUT CONTRAST CLINICAL INFORMATION: Chest pain, infected port COMPARISON: None TECHNIQUE: Multidetector volumetric CT imaging of the chest was done. Axial MIP volume rendering provided. Sagittal and coronal reformatted images were obtained. This CT examination was performed using dose optimization techniques as appropriate, variously including the following: *Automated exposure control *Adjustment of mA and/or kV according to patient size (this includes techniques or standardized protocols for targeted exams where dose is matched to indication/reason for exam; i.e. extremities or head) *Use of iterative reconstruction technique DLP: 927 mGy-cm FINDINGS: The topmost cut demonstrates a possible fluid collection anterior to the left sternocleidomastoid. This is at the level of the hyoid bone. Port catheter is entering from the right and terminates in the superior vena cava. Nodularity left thyroid is noted. The axillary region unremarkable. Partially visualized upper abdominal structures demonstrate no acute finding. Centrally there is no evidence for bulky adenopathy. There is no free fluid centrally. This is a noncontrast study but the hilar structures do not appear pathologically enlarged. Imaging lung moon. Right lung; There is no infiltrate or effusion. 3 mm nodule on image 190 Left lung; No infiltrate or effusion. 2 mm nodule may be calcified image 227. Probable calcified granuloma on image 325 posterior. Review of the bone windows does not demonstrate a suspicious finding. CT/CT chest wo IV con IMPRESSION: As stated on the topmost cut there is partial visualization of a possible left-sided fluid collection or low-density lesion adjacent to the sternocleidomastoid. Incompletely evaluated. This could possibly represent submandibular gland but this cannot be said with certainty. Recommendation is CT of the neck for full evaluation. On the right catheter is visualized terminating in the superior vena cava. There is no pneumothorax. No suspicious associated fluid collection No effusion. Lung moon are grossly clear. No suspicious fluid collection. 3 mm right upper lung nodule. If there are risk factors for lung malignancy recommend low-dose noncontrast study in one year. Nodular left thyroid. Ultrasound recommended
[2022-02-21 14:49] VITALS: BP 155/77; PULSE 74; RESP 18; TEMP 36; O2SAT 96; BMI 44.2
[2022-02-21 15:26] LABS: MANUAL DIFF FLAG NO
[2022-02-21 15:30] LABS: Basophils Percent Auto 0.5 % (0-2); Eosinophils Absolute Auto 0.4 X10*3/uL (0.0-0.4); Eosinophils Percent Auto 6.7 % (0-4); Hematocrit 24.6 % (37.0-47.0); Hemoglobin 7.7 g/dl (12.0-16.0); Imm Gran Abs Auto 0.02 X10*3/uL (0.00-0.03); Imm Gran Pct Auto 0.3 % (0.0-0.4); Lymphocytes Absolute Auto 0.9 X10*3/uL (1.2-4.9); Lymphocytes Percent Auto 14.4 % (20-40); Mean Corpuscular HGB Conc 31.3 g/dl (31.0-35.0); Mean Corpuscular Hemoglobin 28.1 pg (27.0-33.0); Mean Corpuscular Volume 89.8 fL (80.0-98.0); Mean Platelet Volume 10.5 fL (9.4-12.3); Monocytes Absolute Auto 0.4 X10*3/uL (0.1-1.2); Monocytes Percent Auto 6.1 % (2-11); Neutrophils Absolute Auto 4.4 x10*3/uL (2.0-8.3); Platelet Count 230 X10*3/uL (160-400); Red Blood Count 2.74 X10*6/uL (4.20-5.50); White Blood Count 6.1 X10*3/uL (4.8-10.8)
[2022-02-21 15:42] LABS: Lactic Acid 1.1 mmol/L (0.5-2.0)
[2022-02-21 15:48] LABS: Alanine Aminotransferase 14 U/L (0-31); Albumin Level 3.7 g/dL (3.5-5.0); Alkaline Phosphatase 119 U/L (39-117); Anion Gap 18 (12-20); Aspartate Amino Transferase 14 U/L (5-31); Bilirubin Total 0.3 mg/dL (0.0-1.0); Blood Urea Nitrogen 34 mg/dL (9-16); Calcium 8.2 mg/dL (8.4-10.2); Carbon Dioxide 25 mmol/L (22-29); Chloride 100 mmol/L (96-108); Estimated Glomerular Filt Rate 9; Glucose Random 370 mg/dL (60-115); Magnesium 1.8 mg/dL (1.6-2.6); Potassium 3.9 mmol/L (3.3-5.1); Sodium 139 mmol/L (135-145)
[2022-02-21 15:52] LABS: B Type Natriuretic Peptide 67 pg/mL (<100); Troponin-I High Sensitivity 4.2 ng/L (<3.5-17.0)
[2022-02-21 20:48] VITALS: BP 180/80; PULSE 75; RESP 18; O2SAT 99
--- NOTE | 2022-02-21 21:52 | ED_ITS ---
HPI - General Adult General Chief complaint: General Medical Stated complaint: Infected port Time Seen by Provider: 02/21/22 20:52 Source: patient Mode of arrival: ambulatory History of Present Illness HPI narrative: 56-year-old female with ESRD on dialysis reports that she has had right clavicular area redness where a previous dialysis port had been but then became infected and was moved to a lower location. Patient states that she is noted a small amount blood and pus and that the sutures have not been removed since January. Patient states that she had her dialysis yesterday as scheduled. Although the triage note states that the patient complained of chest pressure and dizziness when she noticed the above wound on further questioning patient endorses that this is past and that she feels it was related to seeing the blood and pus. Related Data Home Medications Medication Instructions Recorded Confirmed aspirin 81 mg chewable tablet 1 tab PO DAILY 12/24/21 01/23/22 atorvastatin 80 mg tablet 1 tab PO DAILY 12/24/21 01/23/22 betamethasone dipropionate 0.05 % 1 appl topical BID 12/24/21 01/23/22 topical ointment calcipotriene 0.005 % topical 1 applic topical BID 12/24/21 01/23/22 ointment cholecalciferol (vitamin D3) 50 1 cap PO DAILY 12/24/21 01/23/22 mcg (2,000 unit) capsule (Vitamin D3) clindamycin phosphate 1 % topical 1 applic topical BID 12/24/21 01/23/22 gel cyanocobalamin (vitamin B-12) 1 tab PO DAILY 12/24/21 01/23/22 1,000 mcg tablet (Vitamin B-12) famotidine 20 mg tablet 1 tab PO DAILY 12/24/21 01/23/22 gabapentin 100 mg capsule 1 cap PO TID 12/24/21 01/23/22 insulin lispro 100 unit/mL See Protocol subcut TIDAC 12/24/21 01/23/22 subcutaneous pen lactulose 10 gram/15 mL oral 15 ml PO DAILY PRN Constipation 12/24/21 01/23/22 solution loperamide 2 mg capsule 1 cap PO Q6H PRN Diarrhea 12/24/21 01/23/22 pantoprazole 40 mg tablet,delayed 1 tab PO DAILY 12/24/21 01/23/22 release semaglutide 1 mg/dose (2 mg/1.5 1 mg subcut SA@0900 12/24/21 01/23/22 mL) subcutaneous pen injector (Ozempic) topiramate 25 mg tablet 1 tab PO DAILY 12/24/21 01/23/22 fluocinonide 0.05 % topical cream 1 applic topical BID 01/23/22 01/23/22 hydrocortisone 2.5 % topical cream 1 appl topical BID PRN Skin 01/23/22 01/23/22 Irritation Previous Rx's Medication Instructions Recorded levetiracetam 500 mg tablet 500 mg PO DAILY #30 tabs 12/31/21 carvedilol 12.5 mg tablet 25 mg PO BID 30 days #120 tabs 02/04/22 torsemide 20 mg tablet 40 mg PO BID@0800,1700 30 days 02/04/22 #120 tabs doxycycline hyclate 100 mg tablet 100 mg PO BID 5 days #10 tabs 02/21/22 Allergies Allergy/AdvReac Type Severity Reaction Status Date / Time cortex Eucommiae Allergy Severe ANAPHYLAXIS Verified 02/21/22 14:48 [CORTEX EUCOMMIAE] egg [EGG] Allergy Severe VOMITING Verified 12/23/21 21:10 latex [LATEX] Allergy Severe HIVES Verified 02/21/22 14:48 Penicillins [PENICILLINS] Allergy Severe HIVES Verified 12/23/21 21:10 vancomycin [VANCOMYCIN] Allergy Severe HIVES Verified 02/21/22 14:48 Review of Systems Review of Systems: Pertinent positives and negatives as stated in HPI 10 point review of systems is otherwise negative. [facility] Past Medical History Source: nursing notes reviewed Medical History Diabetes ESRD on hemodialysis Hyperlipidemia Hypertension Lower back pain Partial deafness Sleep apnea Surgical History History of carpal tunnel surgery Previous back surgery Family History Family History Other No family history of coronary artery disease Social History Social History Household Members: Spouse Housing: House Do you presently have visiting nurse or other home services: No Alcohol intake: never Patient Tobacco Use Status: Never used Tobacco Second Hand Smoke Exposure: No Use of substances other than those prescribed or required for medical reasons: No Advance Directives: No Advance Directives Information Provided: No Patient : No service: No Current occupational status: student Physical Exam ED Vital Signs: Vital Signs - 24 hr 02/21/22 14:49 02/21/22 20:48 02/21/22 23:19 Temperature 96.8 F 970 F H Pulse Rate 74 75 79 Respiratory Rate 18 18 18 Blood Pressure 155/77 H 180/80 H 144/65 H Pulse Oximetry 96 99 96 Oxygen Delivery Method Room Air Room Air Room Air BMI result Body Mass Index 44.2 VITAL SIGNS: Reviewed. GENERAL: Well developed, well nourished, in no acute distress. HEAD: Normocephalic/atraumatic EYES: PERRLA, EOMI EARS: Ext canals without abnormality OROPHARYNX: no oral lesions noted, posterior pharynx clear NECK: Supple, small area of induration/erythema with sutures attached noted to the right anterior neck base LUNGS: Normal breath sounds. No adventitious sounds or accessory muscle use. SpO2<96> CARDIOVASCULAR: Regular rate and rhythm without noted murmurs ABDOMEN: Soft, non-tender, non-distended with bowel sounds. MUSCULOSKELETAL: No tenderness, deformities, or effusions noted on gross inspection. EXTREMITIES: No cyanosis, clubbing or edema. SKIN: Inspection of the skin reveals no rashes NEUROLOGIC: Alert and oriented x 4. Strength and sensation to light touch were grossly intact x 4. Course Course Course Narrative: 56-year-old female with history and clinical presentation consistent with localized reaction to sutures that have remained at the site for far too long. The sutures were removed with trace amounts pus and blood. On review of all investigations patient is noted to be hyperglycemic without evidence of DKA or HHS and review of CT scan without mentioning collection at that site, however they do report a left-sided fluid collection or low-density lesion adjacent to the left SCM. So will follow-up with CT of the neck. Patient will be placed on a short course of antibiotics and was instructed follow-up with primary care provider in the morning. Review of all investigations negative for any evidence of fluid collection along the left SCM. Patient was provided with initial dose of doxycycline as she is allergic to penicillins and will actually receive a prescription for remaining antibiotic and in addition to instructions to utilize warm compresses. Medical Decision Making Lab Data Result diagrams: 02/21/22 15:13 02/21/22 15:13 Labs: Lab Results 02/21/22 02/21/22 02/21/22 Range/Units 15:13 15:13 15:13 WBC 6.1 (4.8-10.8) X10*3/uL RBC 2.74 L (4.20-5.50) X10*6/uL Hgb 7.7 L (12.0-16.0) g/dl Hct 24.6 L (37.0-47.0) % MCV 89.8 (80.0-98.0) fL MCH 28.1 (27.0-33.0) pg MCHC 31.3 (31.0-35.0) g/dl RDW 15.0 (11.0-16.0) % Plt Count 230 (160-400) X10*3/uL MPV 10.5 (9.4-12.3) fL Immature Gran % (Auto) 0.3 (0.0-0.4) % Neut % (Auto) 72.0 (45-73) % Lymph % (Auto) 14.4 L (20-40) % Dickson % (Auto) 6.1 (2-11) % Eos % (Auto) 6.7 H (0-4) % Baso % (Auto) 0.5 (0-2) % Lymph # (Auto) 0.9 L (1.2-4.9) X10*3/uL Dickson # (Auto) 0.4 (0.1-1.2) X10*3/uL Eos # (Auto) 0.4 (0.0-0.4) X10*3/uL Baso # (Auto) 0.0 (0.0-0.2) X10*3/uL Abs Immat Gran (auto) 0.02 (0.00-0.03) X10*3/uL Absolute Neuts (auto) 4.4 (2.0-8.3) x10*3/uL Absolute Nucleated RBC 0.000 (0.0-0.012) X10*3/uL Nucleated RBC % (auto) 0.0 (0.0-0.2) /100WBC Sodium 139 (135-145) mmol/L Potassium 3.9 (3.3-5.1) mmol/L Chloride 100 (96-108) mmol/L Carbon Dioxide 25 (22-29) mmol/L Anion Gap 18 (12-20) BUN 34 H D (9-16) mg/dL Creatinine 4.86 H* (0.5-1.4) mg/dL Estim Creat Clear Calc 15.0 Estimated GFR 9 Random Glucose 370 H* (60-115) mg/dL Lactic Acid 1.1 (0.5-2.0) mmol/L Calcium 8.2 L (8.4-10.2) mg/dL Magnesium 1.8 (1.6-2.6) mg/dL Total Bilirubin 0.3 (0.0-1.0) mg/dL AST 14 (5-31) U/L ALT 14 (0-31) U/L Alkaline Phosphatase 119 H (39-117) U/L Troponin I High Sens (<3.5-17.0) ng/L B-Natriuretic Peptide (<100) pg/mL Total Protein 7.0 D (6.5-8.0) g/dL Albumin 3.7 D (3.5-5.0) g/dL 02/21/22 Range/Units 15:13 WBC (4.8-10.8) X10*3/uL RBC (4.20-5.50) X10*6/uL Hgb (12.0-16.0) g/dl Hct (37.0-47.0) % MCV (80.0-98.0) fL MCH (27.0-33.0) pg MCHC (31.0-35.0) g/dl RDW (11.0-16.0) % Plt Count (160-400) X10*3/uL MPV (9.4-12.3) fL Immature Gran % (Auto) (0.0-0.4) % Neut % (Auto) (45-73) % Lymph % (Auto) (20-40) % Dickson % (Auto) (2-11) % Eos % (Auto) (0-4) % Baso % (Auto) (0-2) % Lymph # (Auto) (1.2-4.9) X10*3/uL Dickson # (Auto) (0.1-1.2) X10*3/uL Eos # (Auto) (0.0-0.4) X10*3/uL Baso # (Auto) (0.0-0.2) X10*3/uL Abs Immat Gran (auto) (0.00-0.03) X10*3/uL Absolute Neuts (auto) (2.0-8.3) x10*3/uL Absolute Nucleated RBC (0.0-0.012) X10*3/uL Nucleated RBC % (auto) (0.0-0.2) /100WBC Sodium (135-145) mmol/L Potassium (3.3-5.1) mmol/L Chloride (96-108) mmol/L Carbon Dioxide (22-29) mmol/L Anion Gap (12-20) BUN (9-16) mg/dL Creatinine (0.5-1.4) mg/dL Estim Creat Clear Calc Estimated GFR Random Glucose (60-115) mg/dL Lactic Acid (0.5-2.0) mmol/L Calcium (8.4-10.2) mg/dL Magnesium (1.6-2.6) mg/dL Total Bilirubin (0.0-1.0) mg/dL AST (5-31) U/L ALT (0-31) U/L Alkaline Phosphatase (39-117) U/L Troponin I High Sens 4.2 (<3.5-17.0) ng/L B-Natriuretic Peptide 67 (<100) pg/mL Total Protein (6.5-8.0) g/dL Albumin (3.5-5.0) g/dL Discharge Plan Discharge Clinical Impression: Abscess, Visit for suture removal Patient Disposition: Home, Self-Care Instructions: Abscess (ED), Warm Compress or Soak (ED), Stitches Removal (ED) Additional Instructions: 1. Resume all home medications as prescribed. 2. Complete the entire course of antibiotics as prescribed. 3. Follow-up with your primary care provider in the next 2-3 days for re- evaluation. Return to the ER for worsening symptoms. Prescriptions: New doxycycline hyclate 100 mg tablet 100 mg PO BID 5 Days Qty: 10 0RF No Action atorvastatin 80 mg tablet 1 tab PO DAILY loperamide 2 mg capsule 1 cap PO Q6H PRN (Reason: Diarrhea) cyanocobalamin (vitamin B-12) [Vitamin B-12] 1,000 mcg tablet 1 tab PO DAILY topiramate 25 mg tablet 1 tab PO DAILY famotidine 20 mg tablet 1 tab PO DAILY pantoprazole 40 mg tablet,delayed release (DR/EC) 1 tab PO DAILY aspirin 81 mg tablet,chewable 1 tab PO DAILY gabapentin 100 mg capsule 1 cap PO TID insulin lispro 100 unit/mL insulin pen See Protocol subcut TIDAC Protocol: Insulin Correction Scale Less than or equal to 110 ---- Give (units): 0 111 to 150 Give (units): 0 151 to 200 Give (units): 2 201 to 250 Give (units): 4 251 to 300 Give (units): 6 301 to 350 Give (units): 8 Greater than 350 Give (units): 10 Call MD if Blood Glucose > : 350 Rx Instructions: sliding scale lactulose 10 gram/15 mL solution 15 ml PO DAILY PRN (Reason: Constipation) cholecalciferol (vitamin D3) [Vitamin D3] 50 mcg (2,000 unit) capsule 1 cap PO DAILY Ozempic 1 mg/dose (2 mg/1.5 mL) pen injector 1 mg SUBCUT SA@0900 clindamycin phosphate 1 % gel 1 applic topical BID betamethasone dipropionate 0.05 % ointment 1 appl topical BID calcipotriene 0.005 % ointment 1 applic topical BID levetiracetam 500 mg tablet 500 mg PO DAILY Qty: 30 0RF hydrocortisone 2.5 % cream 1 appl topical BID PRN (Reason: Skin Irritation) Rx Instructions: Apply to breast and buttocks for flares fluocinonide 0.05 % cream 1 applic topical BID torsemide 20 mg Tablet 40 mg PO BID@0800,1700 30 Days Qty: 120 2RF Protocol: Hold for SBP< HOLD for SBP < : 90 carvedilol 12.5 mg Tablet 25 mg PO BID 30 Days Qty: 120 2RF Protocol: Hold for SBP/HR < HOLD for SBP < : 90 HOLD for HR < : 60 Referrals: Delfina Butler MD [Primary Care Provider] -
--- NOTE | 2022-02-21 23:18 | PC.NURSE ---
per Dr Mccartney second set of blood cultures are not needed @4528.
[2022-02-21 23:19] VITALS: BP 144/65; PULSE 79; RESP 18; TEMP 521.1; TEMP 970; O2SAT 96
== END 2022-02-22 00:09 | disposition home or self-care (01) ==
PROVIDERS: Physician Assistant Medical; Emergency Provider Student in an Organized Health Care Education/Training Program; PCP Internal Medicine
DX: R07.89 Other chest pain (principal); R06.02 Shortness of breath; M54.2 Cervicalgia; Z48.02 Encounter for removal of sutures; Z79.899 Other long term (current) drug therapy
CPT/HCPCS: 36415; 70490; 71250; 80053; 83605; 83735; 83880; 84484; 85025; 87040; 93005; 99284

== ENCOUNTER 2022-02-22 10:21 | Emergency (ER) | payer OTHER, SELFPAY ==
--- NOTE | ~2022-02-22 | CT_ITS ---
EXAMINATION: CT HEAD WITHOUT CONTRAST CLINICAL INFORMATION: Confusion. COMPARISON: None. TECHNIQUE: Contiguous axial imaging was performed from the skull base to vertex without intravenous administration of contrast. Coronal and sagittal reformatted images are performed at the CT scanner. [This CT examination was performed using dose optimization techniques as appropriate, variously including the following: *Automated exposure control *Adjustment of mA and/or kV according to patient size (this includes techniques or standardized protocols for targeted exams where dose is matched to indication/reason for exam; i.e. extremities or head) *Use of iterative reconstruction technique] DLP: 649 mGy-cm. FINDINGS: There is no evidence of acute intracranial hemorrhage or territorial infarction. No abnormal mass-effect or midline shift is seen. Keller to white matter differentiation is well preserved. No extra-axial fluid collections are identified. The ventricles are normal in size. There is no abnormal attenuation within the brain parenchyma. There is no osseous abnormality. The mastoid air cells and visualized portions of the paranasal sinuses are well-aerated. CT/CT head/brain wo IV con IMPRESSION: No acute intracranial pathology.
[2022-02-22 10:28] VITALS: BP 127/58; PULSE 66; RESP 16; TEMP 37; O2SAT 95; BMI 45.1
[2022-02-22 10:30] LABS: Glucose, Whole Blood 217 mg/dL (60-115)
--- NOTE | 2022-02-22 10:32 | ED_ITS ---
HPI - Syncope General Chief Complaint: Syncope Stated Complaint: PASSED OUT Time Seen by Provider: 02/22/22 10:32 Source: patient and family Mode of arrival: ambulatory Limitations: no limitations History of Present Illness HPI narrative: Patient was not feeling well after dialysis, she passed out in the car on the way to the hospital. Patient had low blood pressure after dialysis. Patient had nothing to eat or drink all morning MD complaint: loss of consciousness and felt faint Onset (ago): hour(s) -: minutes(s) Prodromal symptoms: lightheaded Witnessed: Yes - by Other Context: other (after dialysis) Injuries sustained associated with event: none Related Data Home Medications Medication Instructions Recorded Confirmed aspirin 81 mg chewable tablet 1 tab PO DAILY 12/24/21 01/23/22 atorvastatin 80 mg tablet 1 tab PO DAILY 12/24/21 01/23/22 betamethasone dipropionate 0.05 % 1 appl topical BID 12/24/21 01/23/22 topical ointment calcipotriene 0.005 % topical 1 applic topical BID 12/24/21 01/23/22 ointment cholecalciferol (vitamin D3) 50 1 cap PO DAILY 12/24/21 01/23/22 mcg (2,000 unit) capsule (Vitamin D3) clindamycin phosphate 1 % topical 1 applic topical BID 12/24/21 01/23/22 gel cyanocobalamin (vitamin B-12) 1 tab PO DAILY 12/24/21 01/23/22 1,000 mcg tablet (Vitamin B-12) famotidine 20 mg tablet 1 tab PO DAILY 12/24/21 01/23/22 gabapentin 100 mg capsule 1 cap PO TID 12/24/21 01/23/22 insulin lispro 100 unit/mL See Protocol subcut TIDAC 12/24/21 01/23/22 subcutaneous pen lactulose 10 gram/15 mL oral 15 ml PO DAILY PRN Constipation 12/24/21 01/23/22 solution loperamide 2 mg capsule 1 cap PO Q6H PRN Diarrhea 12/24/21 01/23/22 pantoprazole 40 mg tablet,delayed 1 tab PO DAILY 12/24/21 01/23/22 release semaglutide 1 mg/dose (2 mg/1.5 1 mg subcut SA@0900 12/24/21 01/23/22 mL) subcutaneous pen injector (Ozempic) topiramate 25 mg tablet 1 tab PO DAILY 12/24/21 01/23/22 fluocinonide 0.05 % topical cream 1 applic topical BID 01/23/22 01/23/22 hydrocortisone 2.5 % topical cream 1 appl topical BID PRN Skin 01/23/22 01/23/22 Irritation Previous Rx's Medication Instructions Recorded levetiracetam 500 mg tablet 500 mg PO DAILY #30 tabs 12/31/21 carvedilol 12.5 mg tablet 25 mg PO BID 30 days #120 tabs 02/04/22 torsemide 20 mg tablet 40 mg PO BID@0800,1700 30 days 02/04/22 #120 tabs doxycycline hyclate 100 mg tablet 100 mg PO BID 5 days #10 tabs 02/21/22 Allergies Allergy/AdvReac Type Severity Reaction Status Date / Time cortex Eucommiae Allergy Severe ANAPHYLAXIS Verified 02/21/22 14:48 [CORTEX EUCOMMIAE] egg [EGG] Allergy Severe VOMITING Verified 12/23/21 21:10 latex [LATEX] Allergy Severe HIVES Verified 02/21/22 14:48 Penicillins [PENICILLINS] Allergy Severe HIVES Verified 12/23/21 21:10 vancomycin [VANCOMYCIN] Allergy Severe HIVES Verified 02/21/22 14:48 Review of Systems Constitutional: Constitutional: Reports no additional constitutional complaints Eyes: Eyes: Reports no additional eye complaints ENT: Denies dizziness Cardiovascular: Cardiovascular: Reports no additional cardiovascular complaints Respiratory: Respiratory: Reports as per HPI Gastrointestinal: Gastrointestinal: Reports no additional gastrointestinal c omplaints Genitourinary: Genitourinary: Reports no additional female genitourinary complaints Musculoskeletal: Musculoskeletal: Reports no additional musculoskeletal complaints Integumentary/Breasts: Skin/Breast: Denies rash Neurologic: Reports system reviewed and no additional complaints, except as documented, Denies dizziness and Denies Sensory deficit (Neuro) Psychiatric: Psychiatric: Denies anxiety PMFSH Past Medical History Medical History Diabetes ESRD on hemodialysis Hyperlipidemia Hypertension Lower back pain Partial deafness Sleep apnea Surgical History History of carpal tunnel surgery Previous back surgery Family History Family History Other No family history of coronary artery disease Social History Social History Household Members: Spouse Housing: House Do you presently have visiting nurse or other home services: No Alcohol intake: never Patient Tobacco Use Status: Never used Tobacco Second Hand Smoke Exposure: No Advance Directives: No Advance Directives Information Provided: Yes service: No Current occupational status: student Physical Exam Vital Signs: Vital Signs: Last Vital Signs Temp 98.6 F 02/22/22 10:28 Pulse 80 02/22/22 12:13 Resp 16 02/22/22 12:13 BP 136/77 02/22/22 12:13 Pulse Ox 96 02/22/22 12:13 O2 Del Method 02/22/22 12:13 BMI result Body Mass Index 45.1 Const: Other: obese female with flat affect Nutritional Appearance: obese Orientation /consciousness: oriented to person Limitations: altered mental status HEENT: Head: Yes normal to inspection Ears: external ears normal General nose exam: Normal external nose present Mouth: Normal oral and palatal mucosa present and oropharynx normal Throat: Yes posterior oropharynx normal Eyes: General: appearance normal, both eyes and all related structures Neck: Other: supple Neck: Yes normal visual inspection Chest: Chest palpation & inspection: normal inspection of the chest Resp: Auscultation: clear to auscultation bilaterally Cardio: Jugular venous distension: no JVD Rate: regular rate Rhythm: regular rhythm Heart sounds: S1 normal heart sound present and S2 normal heart sound present GI: Inspection: Yes normal to inspection Palpation (GI): Soft to palpation, nontender and No hepatosplenomegaly present Auscultation: normal bowel sounds : General: Yes no CVA tenderness Back/Spine/Pelvis: Back: no CVA tenderness Skin: General skin exam: no rashes or lesions noted Neuro: General: oriented to person Cranial nerves: Yes CN's II-XII intact bilaterally Motor exam (neuro): 5/5 motor strength present throughout Sensory Exam: No Sensory deficit (Neuro) Extrem: General: Yes normal to inspection Psych: Appearance: grossly normal Course Reevaluation(s) Reevaluation #1: patient with confusion and headache will ct head Reevaluation #2: CT head negative will dc home, patient with syncope after dialysis, not cardiac, ekg and blood work normal Time: 16:28 MDM - Syncope Lab Data Result diagrams: 02/22/22 10:52 02/22/22 10:52 Labs: Lab Results 02/22/22 02/22/22 02/22/22 Range/Units 10:25 10:52 10:52 WBC 4.9 (4.8-10.8) X10*3/uL RBC 3.01 L (4.20-5.50) X10*6/uL Hgb 8.5 L (12.0-16.0) g/dl Hct 26.8 L (37.0-47.0) % MCV 89.0 (80.0-98.0) fL MCH 28.2 (27.0-33.0) pg MCHC 31.7 (31.0-35.0) g/dl RDW 14.9 (11.0-16.0) % Plt Count 216 (160-400) X10*3/uL MPV 9.9 (9.4-12.3) fL Immature Gran % (Auto) 0.8 H (0.0-0.4) % Neut % (Auto) 71.4 (45-73) % Lymph % (Auto) 15.0 L (20-40) % Rusk % (Auto) 5.9 (2-11) % Eos % (Auto) 6.1 H (0-4) % Baso % (Auto) 0.8 (0-2) % Lymph # (Auto) 0.7 L (1.2-4.9) X10*3/uL Rusk # (Auto) 0.3 (0.1-1.2) X10*3/uL Eos # (Auto) 0.3 (0.0-0.4) X10*3/uL Baso # (Auto) 0.0 (0.0-0.2) X10*3/uL Abs Immat Gran (auto) 0.04 H (0.00-0.03) X10*3/uL Absolute Neuts (auto) 3.5 (2.0-8.3) x10*3/uL Absolute Nucleated RBC 0.000 (0.0-0.012) X10*3/uL Nucleated RBC % (auto) 0.0 (0.0-0.2) /100WBC Sodium 138 (135-145) mmol/L Potassium 3.2 L (3.3-5.1) mmol/L Chloride 97 (96-108) mmol/L Carbon Dioxide 28 (22-29) mmol/L Anion Gap 16 (12-20) BUN 13 D (9-16) mg/dL Creatinine 2.30 H (0.5-1.4) mg/dL Estim Creat Clear Calc 31.0 Estimated GFR 22 POC Glucose 217 H (60-115) mg/dL Random Glucose 246 H (60-115) mg/dL Calcium 8.5 (8.4-10.2) mg/dL Troponin I High Sens (<3.5-17.0) ng/L 02/22/22 Range/Units 10:52 WBC (4.8-10.8) X10*3/uL RBC (4.20-5.50) X10*6/uL Hgb (12.0-16.0) g/dl Hct (37.0-47.0) % MCV (80.0-98.0) fL MCH (27.0-33.0) pg MCHC (31.0-35.0) g/dl RDW (11.0-16.0) % Plt Count (160-400) X10*3/uL MPV (9.4-12.3) fL Immature Gran % (Auto) (0.0-0.4) % Neut % (Auto) (45-73) % Lymph % (Auto) (20-40) % Rusk % (Auto) (2-11) % Eos % (Auto) (0-4) % Baso % (Auto) (0-2) % Lymph # (Auto) (1.2-4.9) X10*3/uL Rusk # (Auto) (0.1-1.2) X10*3/uL Eos # (Auto) (0.0-0.4) X10*3/uL Baso # (Auto) (0.0-0.2) X10*3/uL Abs Immat Gran (auto) (0.00-0.03) X10*3/uL Absolute Neuts (auto) (2.0-8.3) x10*3/uL Absolute Nucleated RBC (0.0-0.012) X10*3/uL Nucleated RBC % (auto) (0.0-0.2) /100WBC Sodium (135-145) mmol/L Potassium (3.3-5.1) mmol/L Chloride (96-108) mmol/L Carbon Dioxide (22-29) mmol/L Anion Gap (12-20) BUN (9-16) mg/dL Creatinine (0.5-1.4) mg/dL Estim Creat Clear Calc Estimated GFR POC Glucose (60-115) mg/dL Random Glucose (60-115) mg/dL Calcium (8.4-10.2) mg/dL Troponin I High Sens 4.4 (<3.5-17.0) ng/L Imaging Data CT scan - head: Radiologist's impression: FINDINGS: There is no evidence of acute intracranial hemorrhage or territorial infarction. No abnormal mass-effect or midline shift is seen. Keller to white matter differentiation is well preserved. No extra-axial fluid collections are identified. The ventricles are normal in size. There is no abnormal attenuation within the brain parenchyma. There is no osseous abnormality. The mastoid air cells and visualized portions of the paranasal sinuses are well-aerated. ? CT/CT head/brain wo IV con IMPRESSION: No acute intracranial pathology. ? ? Dictated By: Carlos Selby MD Signed By: <Electronically signed by Carlos Selby MD in OV> 02/22/22 1602 ECG Data Attestation: I personally reviewed and interpreted this ECG as follows: Interpretation: Normal sinus rate [address] or twave changes Discharge Plan Discharge Clinical Impression: Diarrhea, Dehydration Patient Disposition: Home, Self-Care Instructions: Acute Diarrhea (ED), Dehydration (ED) Prescriptions: No Action atorvastatin 80 mg tablet 1 tab PO DAILY loperamide 2 mg capsule 1 cap PO Q6H PRN (Reason: Diarrhea) cyanocobalamin (vitamin B-12) [Vitamin B-12] 1,000 mcg tablet 1 tab PO DAILY topiramate 25 mg tablet 1 tab PO DAILY famotidine 20 mg tablet 1 tab PO DAILY pantoprazole 40 mg tablet,delayed release (DR/EC) 1 tab PO DAILY aspirin 81 mg tablet,chewable 1 tab PO DAILY gabapentin 100 mg capsule 1 cap PO TID insulin lispro 100 unit/mL insulin pen See Protocol subcut TIDAC Protocol: Insulin Correction Scale Less than or equal to 110 ---- Give (units): 0 111 to 150 Give (units): 0 151 to 200 Give (units): 2 201 to 250 Give (units): 4 251 to 300 Give (units): 6 301 to 350 Give (units): 8 Greater than 350 Give (units): 10 Call MD if Blood Glucose > : 350 Rx Instructions: sliding scale lactulose 10 gram/15 mL solution 15 ml PO DAILY PRN (Reason: Constipation) cholecalciferol (vitamin D3) [Vitamin D3] 50 mcg (2,000 unit) capsule 1 cap PO DAILY Ozempic 1 mg/dose (2 mg/1.5 mL) pen injector 1 mg SUBCUT SA@0900 clindamycin phosphate 1 % gel 1 applic topical BID betamethasone dipropionate 0.05 % ointment 1 appl topical BID calcipotriene 0.005 % ointment 1 applic topical BID levetiracetam 500 mg tablet 500 mg PO DAILY Qty: 30 0RF hydrocortisone 2.5 % cream 1 appl topical BID PRN (Reason: Skin Irritation) Rx Instructions: Apply to breast and buttocks for flares fluocinonide 0.05 % cream 1 applic topical BID torsemide 20 mg Tablet 40 mg PO BID@0800,1700 30 Days Qty: 120 2RF Protocol: Hold for SBP< HOLD for SBP < : 90 carvedilol 12.5 mg Tablet 25 mg PO BID 30 Days Qty: 120 2RF Protocol: Hold for SBP/HR < HOLD for SBP < : 90 HOLD for HR < : 60 doxycycline hyclate 100 mg tablet 100 mg PO BID 5 Days Qty: 10 0RF Referrals: Delfina Butler MD [Primary Care Provider] - 5 days
--- NOTE | 2022-02-22 10:33 | ECG_ITS ---
Test Reason : syncope Blood Pressure : / mmHG Vent. Rate : 067 BPM Atrial Rate : 067 BPM P-R Int : 156 ms QRS Dur : 100 ms QT Int : 492 ms P-R-T Axes : 052 007 054 degrees QTc Int : 519 ms Normal sinus rhythm Moderate voltage criteria for LVH, may be normal variant ( R in aVL , [place]dr[place] product ) Prolonged QT Abnormal ECG When compared with ECG of 21-FEB-2022 14:57, No significant change was found Referred By: Janusz Segundo Electronically Signed By:XAVI SHERIDAN MD
[2022-02-22 10:58] LABS: MANUAL DIFF FLAG NO
[2022-02-22 11:06] LABS: Basophils Percent Auto 0.8 % (0-2); Eosinophils Absolute Auto 0.3 X10*3/uL (0.0-0.4); Eosinophils Percent Auto 6.1 % (0-4); Hematocrit 26.8 % (37.0-47.0); Hemoglobin 8.5 g/dl (12.0-16.0); Imm Gran Abs Auto 0.04 X10*3/uL (0.00-0.03); Imm Gran Pct Auto 0.8 % (0.0-0.4); Lymphocytes Absolute Auto 0.7 X10*3/uL (1.2-4.9); Mean Corpuscular HGB Conc 31.7 g/dl (31.0-35.0); Mean Corpuscular Hemoglobin 28.2 pg (27.0-33.0); Mean Platelet Volume 9.9 fL (9.4-12.3); Monocytes Absolute Auto 0.3 X10*3/uL (0.1-1.2); Monocytes Percent Auto 5.9 % (2-11); Neutrophils Absolute Auto 3.5 x10*3/uL (2.0-8.3); Neutrophils Percent Auto 71.4 % (45-73); Platelet Count 216 X10*3/uL (160-400); Red Blood Count 3.01 X10*6/uL (4.20-5.50); Red Cell Distribution Width 14.9 % (11.0-16.0); White Blood Count 4.9 X10*3/uL (4.8-10.8)
[2022-02-22 11:16] LABS: Anion Gap 16 (12-20); Blood Urea Nitrogen 13 mg/dL (9-16); Calcium 8.5 mg/dL (8.4-10.2); Carbon Dioxide 28 mmol/L (22-29); Chloride 97 mmol/L (96-108); Estimated Glomerular Filt Rate 22; Glucose Random 246 mg/dL (60-115); Potassium 3.2 mmol/L (3.3-5.1); Sodium 138 mmol/L (135-145)
[2022-02-22 11:25] LABS: Troponin-I High Sensitivity 4.4 ng/L (<3.5-17.0)
[2022-02-22 12:04] VITALS: BP 142/73; PULSE 71; RESP 12; O2SAT 97
[2022-02-22 12:09] VITALS: BP 126/76; BP 136/77; BP 141/72; PULSE 69; PULSE 75; PULSE 80
[2022-02-22 12:13] VITALS: BP 136/77; PULSE 80; RESP 16; O2SAT 96
--- NOTE | 2022-02-22 18:12 | PC.NURSE ---
PT AWAKE, ALERT AND ORIENTED. REPORTS THAT SHE IS FEELING BETTER THAN UPON ARRIVAL TO ED. PLAN IS FOR DC HOME. PT AGREEABLE TO PLAN. REQUESTED THAT WE PROVIDE A DOSE OF ABX BECAUSE SHE WAS AT DIALYSIS IN THE AM AND IN THE ED ALL DAY AND HER MEDS WERE NOT DELIVERED TO HER HOME (PT SEEN IN ED LAST NIGHT). DR MENDEZ ORDERED ABX FOR PATIENT.
[2022-02-22 18:15] VITALS: BP 140/74; PULSE 74; RESP 16; O2SAT 97
== END 2022-02-22 18:16 | disposition home or self-care (01) ==
PROVIDERS: Emergency Provider Emergency Medicine; PCP Internal Medicine
DX: R19.7 Diarrhea, unspecified (principal); E86.0 Dehydration; E11.22 Type 2 diabetes mellitus with diabetic chronic kidney disease; I12.0 Hypertensive chronic kidney disease with stage 5 chronic kidney disease or end stage renal disease; N18.6 End stage renal disease; Z99.2 Dependence on renal dialysis; Z79.02 Long term (current) use of antithrombotics/antiplatelets; Z79.82 Long term (current) use of aspirin; Z79.4 Long term (current) use of insulin; Z79.899 Other long term (current) drug therapy
CPT/HCPCS: 36415; 70450; 80048; 82947; 84484; 85025; 93005; 99284

== ENCOUNTER 2022-03-06 12:59 | Inpatient (IN) | payer OTHER, SELFPAY ==
[2022-03-06] VITALS (21 sets, daily range): BP systolic 111–183; BP diastolic 41–95; PULSE 66–84; RESP 10–18; TEMP 36.4–37.1; O2SAT 94–100; BMI 46.4
--- NOTE | ~2022-03-06 | XR_ITS ---
EXAMINATION: XR CHEST CLINICAL INFORMATION: Weakness COMPARISON: Chest CT 02/21/2022 and selective prior TECHNIQUE: AP portable upright view of the chest was obtained. FINDINGS: ECG leads overlie the chest. Large bore right central venous catheter tip projects over the mid SVC. No pneumothorax. Mild bronchial wall thickening again noted. No focal pneumonia. No effusion or pneumothorax. Heart and mediastinum grossly normal for technique. Nonobstructive gas pattern. XR/XR chest 1V IMPRESSION: No acute disease.
--- NOTE | ~2022-03-06 | CT_ITS ---
EXAMINATION: CT HEAD WITHOUT CONTRAST CLINICAL INFORMATION: Headache, given tPA for stroke COMPARISON: CT head 03/06/2022, 1:06 PM TECHNIQUE: Contiguous axial imaging was performed from the skull base to vertex without intravenous administration of contrast. Coronal and sagittal reformatted images are performed at the CT scanner. Exam performed at 5:18 PM [This CT examination was performed using dose optimization techniques as appropriate, variously including the following: *Automated exposure control *Adjustment of mA and/or kV according to patient size (this includes techniques or standardized protocols for targeted exams where dose is matched to indication/reason for exam; i.e. extremities or head) *Use of iterative reconstruction technique] DLP: 680 mGy-cm. FINDINGS: There is no evidence of acute intracranial hemorrhage or territorial infarction. No abnormal mass-effect or midline shift is seen. Keller to white matter differentiation is well preserved. No extra-axial fluid collections are identified. The ventricles are normal in size. There is no abnormal attenuation within the brain parenchyma. There is no osseous abnormality. The mastoid air cells and visualized portions of the paranasal sinuses are well-aerated. CT/CT head/brain wo IV con IMPRESSION: No acute intracranial pathology.
--- NOTE | ~2022-03-06 | US_ITS ---
EXAMINATION: US EXTRACRANIAL CAROTID DUPLEX, BILATERAL CLINICAL INFORMATION: Stroke. COMPARISON: None TECHNIQUE: Real-time ultrasound and Doppler techniques (integrating B-mode 2-D vascular images, Doppler spectral analysis and color-flow Doppler imaging) were utilized to interrogate the extracranial carotid arteries, the vertebral arteries and proximal subclavian arteries bilaterally. The degree of stenosis is determined by criteria similar to NASCET. FINDINGS: Right Side: 1. There is minimal atherosclerotic plaque seen in the bifurcation/proximal ICA region. 2. The common carotid artery PSV proximally is 95.7 cm/s and distally 101 cm/s. 3. The proximal internal carotid artery velocities are 81.3 cm/s systolic and 22.8 cm/s diastolic. 4. The proximal external carotid artery PSV is 149 cm/s. 5. The vertebral artery shows antegrade flow. 6. The subclavian artery waveforms are normal with elevated peak systolic velocity of 227 cm/second. Left Side: 1. There is no atherosclerotic plaque seen in the bifurcation/proximal ICA region. 2. The common carotid artery PSV proximally is 131 cm/s and distally 107 cm/s. 3. The proximal internal carotid artery velocities are 81.3 cm/s systolic and 23.8 cm/s diastolic. 4. The proximal external carotid artery PSV is 149 cm/s. 5. The vertebral artery shows antegrade flow. 6. The subclavian artery waveforms are normal with elevated peak systolic velocity of 2 0 7 cm.. US/US carotid duplex BI IMPRESSION: 1. RIGHT: 0-49% range stenosis right carotid artery. 2. LEFT: No hemodynamically significant stenosis. 3. Elevated bilateral subclavian artery peak systolic velocity suggestive off mild stenosis or tortuosity.
--- NOTE | ~2022-03-06 | MR_ITS ---
MRI OF THE BRAIN WITHOUT IV CONTRAST INDICATION: CVA status post TPA. COMPARISON: Head CT 03/07/2022. TECHNIQUE: Multiplanar multisequence MR imaging of the brain was obtained without IV contrast. FINDINGS: There is no hydrocephalus, extra-axial surface collection, or herniation. There is moderate chronic microangiopathy. The major flow voids at the skull base are preserved. There is no acute infarct on diffusion-weighted imaging. There is no intracranial hemorrhage on the gradient recalled echo acquisition. The midline structures are normal. The cerebellar tonsils are normally positioned. The cerebellum and brainstem are normal. The craniocervical junction is normal. Osseous marrow signal intensity is homogenous. The visualized soft tissues are unremarkable. Small left mastoid effusion. MR/MR head/brain wo con IMPRESSION: - No acute intracranial findings. No acute infarcts identified accounting for artifact. - There is moderate chronic microangiopathy.
--- NOTE | ~2022-03-06 | CT_ITS ---
EXAMINATION: CT HEAD WITHOUT CONTRAST (STROKE PROTOCOL) CLINICAL INFORMATION: Stroke protocol. COMPARISON: 02/22/[address] scan[address] TECHNIQUE: Contiguous axial imaging was performed from the skull base to vertex without intravenous administration of contrast. Coronal and sagittal reformatted images were obtained. This CT examination was performed using dose optimization techniques as appropriate, variously including the following: *Automated exposure control *Adjustment of mA and/or kV according to patient size (this includes techniques or standardized protocols for targeted exams where dose is matched to indication/reason for exam; i.e. extremities or head) *Use of iterative reconstruction technique DLP: 720 mGy-cm FINDINGS: The cortical sulci are normal. The lateral ventricles are symmetrical. The third and fourth ventricles are in their normal midline position. The basilar and prepontine cisterns are unremarkable. There is no acute intra or extracerebral abnormality. There is no mass effect or midline shift. Sections through the bony calvarium are unremarkable. The paranasal sinuses are clear. The bony orbits and orbital contents are unremarkable. CT/CT head for stroke IMPRESSION: No acute intracranial pathology.
--- NOTE | ~2022-03-06 | CT_ITS ---
EXAMINATION: CT head/brain wo IV con CLINICAL INFORMATION: Reason for Exam CVA s/p tPA COMPARISON: CT head without contrast 03/06/2022 TECHNIQUE: Contiguous axial imaging was performed from the skull base to vertex without intravenous contrast. Sagittal and coronal reformatted images were obtained. This CT examination was performed using dose optimization techniques as appropriate, variously including the following: * Automated exposure control * Adjustment of mA and/or kV according to patient size (this includes techniques or standardized protocols for targeted exams where dose is matched to indication/reason for exam; i.e. extremities or head) Use of iterative reconstruction technique DLP: 624 mGy-cm FINDINGS: No acute osseous or soft tissue abnormality. The mastoid air cells and visualized portions of the paranasal sinuses are well aerated. There is no evidence of acute intracranial hemorrhage or territorial infarction. No abnormal mass effect or midline shift is seen. Keller to white matter differentiation is well preserved. No extra-axial fluid collections are identified. No hydrocephalus. No significant volume loss. There is no abnormal attenuation within the brain parenchyma. CT/CT head/brain wo IV con IMPRESSION: No acute intracranial abnormality including hemorrhage, mass effect, hydrocephalus, or acute territorial edematous infarction.
--- NOTE | 2022-03-06 13:02 | ECG_ITS ---
Test Reason : cva Blood Pressure : / mmHG Vent. Rate : 083 BPM Atrial Rate : 083 BPM P-R Int : 160 ms QRS Dur : 100 ms QT Int : 438 ms P-R-T Axes : 042 -02 059 degrees QTc Int : 514 ms Normal sinus rhythm Moderate voltage criteria for LVH, may be normal variant ( R in aVL , [place] product ) Prolonged QT Abnormal ECG When compared with ECG of 22-FEB-2022 10:36, No significant change was found Referred By: Steven Jackson Electronically Signed By:XAVI SHERIDAN MD
[2022-03-06 13:12] LABS: Glucose, Whole Blood 284 mg/dL (60-115)
--- NOTE | 2022-03-06 13:14 | ED.WEAKNESS ---
HPI - Weakness General Chief complaint: Stroke Stated complaint: NEIL ALRT, L WEAK/NUMB FACE,LKWT 11PM,HAD DIALYSIS Time Seen by Provider: 03/06/22 13:02 Source: patient and family (, Demetrius) Mode of arrival: EMS Limitations: altered mental status History of Present Illness HPI Narrative: 56-year-old female who was brought to the emergency department as a stroke alert. The information came from the patient's , Demetrius. The patient was recently started on dialysis January 2022. The patient is dialyzed on Tuesdays, and Saturdays. The states that the patient came home from dialysis at around 10:30 a.m. and was complaining of weakness which she has complained of before after dialysis. At 11:30 told her that the left side of her face was numb in her left arm and left leg became numb as well. She then told her that her left side of her body felt like he was being squeezed. The patient's speech then became slurred and the was concerned that the patient had a stroke and called an ambulance. The told me the patient has had 2 strokes in the past and believes that her last stroke was 8 months prior but does not think that the patient received thrombolytics for this stroke. The patient was seen in the emergency room on 02/22/2022 for syncopal episode after dialysis which was felt to be secondary to low blood pressure.. Related Data Home Medications Medication Instructions Recorded Confirmed aspirin 81 mg chewable tablet 1 tab PO DAILY 12/24/21 01/23/22 atorvastatin 80 mg tablet 1 tab PO DAILY 12/24/21 01/23/22 betamethasone dipropionate 0.05 % 1 appl topical BID 12/24/21 01/23/22 topical ointment calcipotriene 0.005 % topical 1 applic topical BID 12/24/21 01/23/22 ointment cholecalciferol (vitamin D3) 50 1 cap PO DAILY 12/24/21 01/23/22 mcg (2,000 unit) capsule (Vitamin D3) clindamycin phosphate 1 % topical 1 applic topical BID 12/24/21 01/23/22 gel cyanocobalamin (vitamin B-12) 1 tab PO DAILY 12/24/21 01/23/22 1,000 mcg tablet (Vitamin B-12) famotidine 20 mg tablet 1 tab PO DAILY 12/24/21 01/23/22 gabapentin 100 mg capsule 1 cap PO TID 12/24/21 01/23/22 insulin lispro 100 unit/mL See Protocol subcut TIDAC 12/24/21 01/23/22 subcutaneous pen lactulose 10 gram/15 mL oral 15 ml PO DAILY PRN Constipation 12/24/21 01/23/22 solution loperamide 2 mg capsule 1 cap PO Q6H PRN Diarrhea 12/24/21 01/23/22 pantoprazole 40 mg tablet,delayed 1 tab PO DAILY@0630 12/24/21 01/23/22 release semaglutide 1 mg/dose (2 mg/1.5 1 mg subcut SA@0900 12/24/21 01/23/22 mL) subcutaneous pen injector (Ozempic) topiramate 25 mg tablet 1 tab PO DAILY 12/24/21 01/23/22 fluocinonide 0.05 % topical cream 1 applic topical BID 01/23/22 01/23/22 hydrocortisone 2.5 % topical cream 1 appl topical BID PRN Skin 01/23/22 01/23/22 Irritation amlodipine 10 mg tablet 1 tab PO DAILY 03/06/22 carvedilol 25 mg tablet 1 tab PO BID 03/06/22 insulin glargine 100 unit/mL (3 45 unit subcut BID 03/06/22 03/06/22 mL) subcutaneous pen (Lantus Solostar U-100 Insulin) vitamin B complex and vitamin C 1 cap PO DAILY 03/06/22 no.20-folic acid 1 mg capsule (Triphrocaps) Previous Rx's Medication Instructions Recorded levetiracetam 500 mg tablet 500 mg PO DAILY #30 tabs 12/31/21 torsemide 20 mg tablet 40 mg PO BID@0800,1700 30 days 02/04/22 #120 tabs doxycycline hyclate 100 mg tablet 100 mg PO BID 5 days #10 tabs 02/21/22 Allergies Allergy/AdvReac Type Severity Reaction Status Date / Time cortex Eucommiae Allergy Severe ANAPHYLAXIS Verified 02/21/22 14:48 [CORTEX EUCOMMIAE] egg [EGG] Allergy Severe VOMITING Verified 12/23/21 21:10 latex [LATEX] Allergy Severe HIVES Verified 02/21/22 14:48 Penicillins [PENICILLINS] Allergy Severe HIVES Verified 12/23/21 21:10 vancomycin [VANCOMYCIN] Allergy Severe HIVES Verified 02/21/22 14:48 Review of Systems Review of Systems: Yes Unobtainable due to mental status (Patient's speech is comprehensible but she has very slow response time) Neurologic: Reports Abnormal speech present [facility] Past Medical History [facility] Narrative: Social history: She lives with her . She denies tobacco, alcohol and drug use. Medical History (Updated 03/06/22 @ 15:10 by Quirino Carpenter MD) Diabetes ESRD on hemodialysis Hyperlipidemia Hypertension Lower back pain Partial deafness Sleep apnea Surgical History History of carpal tunnel surgery Previous back surgery Family History Family History Other No family history of coronary artery disease Social History Social History Household Members: Spouse Housing: House Do you presently have visiting nurse or other home services: No Alcohol intake: former Patient Tobacco Use Status: Never used Tobacco Smoked in Last 30 Days: No Second Hand Smoke Exposure: No Use of substances other than those prescribed or required for medical reasons: No Advance Directives: No service: No Current occupational status: student Physical Exam Vital Signs: Vital Signs: Last Vital Signs Temp 98.8 F 03/06/22 13:25 Pulse 77 03/06/22 16:14 Resp 16 03/06/22 16:14 BP 156/79 H 03/06/22 16:14 Pulse Ox 97 03/06/22 16:14 O2 Del Method 03/06/22 16:14 BMI result Body Mass Index 46.4 Const: Other: Somnolent but does answer questions with slow response time, her lying which is comprehensible Orientation/consciousness: oriented to person HEENT: Head: Yes normal to inspection, Yes normocephalic and Yes atraumatic Ears: external ears normal General nose exam: Normal external nose present Face and sinus: Yes normal facial exam Mouth: Normal oral and palatal mucosa present Throat: Yes posterior oropharynx normal Eyes: General: appearance normal, both eyes and all related structures Pupils: Equal, round and reactive pupils present Neck: Neck: Yes normal visual inspection, Yes no lymphadenopathy, Yes trachea midline and Yes supple Chest: Chest palpation & inspection: normal inspection of the chest and normal palpation of entire chest wall Resp: Effort & Inspection: normal respiratory effort and able to speak in complete sentences Auscultation: clear to auscultation bilaterally Cardio: Rate: regular rate Rhythm: regular rhythm Heart sounds: S1 normal heart sound present, S2 normal heart sound present and no murmurs GI: Inspection: Yes normal to inspection Palpation (GI): Soft to palpation, nontender and no guarding Auscultation: normal bowel sounds : General: Yes no CVA tenderness Back/Spine/Pelvis: Back: no CVA tenderness Skin: General skin exam: no rashes or lesions noted Neuro: Other: The patient has normal strength on her right side, on her left side she is very weak manager core, she is unable to hold her left arm up against gravity, she is unable to move her left lower extremity against gravity of from side to side, she cannot lift her right leg up against gravity but can not move her right leg from side to side General: oriented to person Cranial nerves: Yes CN's II-XII intact bilaterally and Yes Equal, round and reactive pupils present Speech: Abnormal speech present and Other speech findings present (Neuro) (Slow response time with slow speech, comprehensive) Extrem: General: Yes normal to inspection NIH Stroke Scale Internal: Initial- Upon Arrival Level of Consciousness: Not Alert; but arousable by minor stimulation Level of Consciousness Questions: Answers both questions correctly Level of Consciousness Commands: Performs both tasks correctly Best Gaze: Normal Visual: No visual loss Facial Palsy: Normal Motor Arm (Right): No drift Motor Arm (Left): No effort against gravity Motor Leg (Right): No drift Motor Leg (Left): No effort against gravity Limb Ataxia: Absent Sensory: Normal Best Language: Mild to moderate aphasia Dysarthia: Normal Extinction and Inattention: No abnormality Score: 8 Course Course Course Narrative: 56-year-old female with a history of end-stage renal disease, recent dialysis patient as of January 2022 who was sent to the emergency department by ambulance for left facial droop, left facial numbness, left upper and lower extremity weakness with the last well-known time 11:30 am. Patient's examination did reveal abnormal speech with slow response time and slow speech pattern, left upper and left lower extremity weakness compared to the right. NIH stroke scale was 8 CT scan of the brain revealed no acute process. Laboratory evaluation revealed anemia with an H&H of 9.5 and 29.1 is most likely caused by her end-stage renal disease. Platelet count was normal. PT/INR and PTT were normal. BUN was 13 with an elevated creatinine of 2.49. Glucose was elevated at 405. Alkaline phosphatase was elevated 152 and this is related to end-stage renal disease. I did discuss this patient with the covering neurologist, Dr. Samuel. At the time my discussion, the paramedics had reported that the last known well time was 10:30 a.m. however the corrected this inside the last well-known time was 11:30 and that the patient return from dialysis at 10:30. Therefore the patient was within the 3 hour therapeutic window. After discussion of the risks and benefits of tPA especially the risk of converting the stroke to hemorrhagic stroke, the wanted to proceed with tPA and I agreed with this plan. Therefore the patient was given tPA 90 mg. I will discuss admission with our covering couture alterations dressmaker. 1459: I did discuss the patient's presentation with the covering couture alterations dressmaker, Dr. Carpenter and he did accept the patient onto his service. 1654: The patient informed the nurse that she is having a headache. She cannot tell me when the headache started. She states the headache is located throughout her entire head and is 10/10. Patient was ordered to get morphine 2 mg IV and Zofran 4 mg IV. Given the fact that she received tPA and now has a headache I will get a repeat CT scan to make sure that she does not have a bleed. Medications Administered Generic Name Dose Route Start Last Admin Trade Name Freq PRN Reason Stop Dose Admin Sodium Chloride 3 ml 03/06/22 16:00 03/06/22 15:13 0.9 % Sodium Chloride Flush 3 Ml Syringe IVFLUSH Not Given QSHIFT JA Discontinued Medications Generic Name Dose Route Start Last Admin Trade Name Freq PRN Reason Stop Dose Admin Alteplase, Recombinant 90 mg 03/06/22 13:50 03/06/22 13:55 Alteplase 100 Mg Vial IV 03/06/22 13:51 90 mg ONCE ONE Administration MDM - Weakness Medical Records Attestation: I reviewed the patient's medical records. Lab Data Attestation: I reviewed the patient's lab results. Result diagrams: 03/06/22 13:58 03/06/22 13:59 Labs: Lab Results 03/06/22 03/06/22 03/06/22 Range/Units 13:03 13:04 13:53 WBC (4.8-10.8) X10*3/uL RBC (4.20-5.50) X10*6/uL Hgb (12.0-16.0) g/dl Hct (37.0-47.0) % MCV (80.0-98.0) fL MCH (27.0-33.0) pg MCHC (31.0-35.0) g/dl RDW (11.0-16.0) % Plt Count (160-400) X10*3/uL MPV (9.4-12.3) fL Immature Gran % (Auto) (0.0-0.4) % Neut % (Auto) (45-73) % Lymph % (Auto) (20-40) % Wetzel % (Auto) (2-11) % Eos % (Auto) (0-4) % Baso % (Auto) (0-2) % Lymph # (Auto) (1.2-4.9) X10*3/uL Wetzel # (Auto) (0.1-1.2) X10*3/uL Eos # (Auto) (0.0-0.4) X10*3/uL Baso # (Auto) (0.0-0.2) X10*3/uL Abs Immat Gran (auto) (0.00-0.03) X10*3/uL Absolute Neuts (auto) (2.0-8.3) x10*3/uL Absolute Nucleated RBC (0.0-0.012) X10*3/uL Nucleated RBC % (auto) (0.0-0.2) /100WBC PT (10.0-13.1) SEC Whole Blood PT 12.7 12.4 (11.1-13.5) sec INR (0.9-1.1) Whole Blood INR 1.1 1.0 (0.9-1.1) APTT (26.0-36.4) SEC Sodium (135-145) mmol/L Potassium (3.3-5.1) mmol/L Chloride (96-108) mmol/L Carbon Dioxide (22-29) mmol/L Anion Gap (12-20) BUN (9-16) mg/dL Creatinine (0.5-1.4) mg/dL Estim Creat Clear Calc Estimated GFR POC Glucose 284 H (60-115) mg/dL Random Glucose (60-115) mg/dL Calcium (8.4-10.2) mg/dL Total Bilirubin (0.0-1.0) mg/dL Direct Bilirubin (0.0-0.5) mg/dL AST (5-31) U/L ALT (0-31) U/L Alkaline Phosphatase (39-117) U/L Total Creatine Kinase (26-140) U/L Troponin I High Sens (<3.5-17.0) ng/L Total Protein (6.5-8.0) g/dL Albumin (3.5-5.0) g/dL COVID-19 ([facility]ODY) (Negative) COVID-19 Clin Com 03/06/22 03/06/22 03/06/22 Range/Units 13:58 13:58 13:59 WBC 7.2 (4.8-10.8) X10*3/uL RBC 3.31 L (4.20-5.50) X10*6/uL Hgb 9.5 L (12.0-16.0) g/dl Hct 29.1 L (37.0-47.0) % MCV 87.9 (80.0-98.0) fL MCH 28.7 (27.0-33.0) pg MCHC 32.6 (31.0-35.0) g/dl RDW 14.0 (11.0-16.0) % Plt Count 227 (160-400) X10*3/uL MPV 10.1 (9.4-12.3) fL Immature Gran % (Auto) 0.4 (0.0-0.4) % Neut % (Auto) 79.8 H (45-73) % Lymph % (Auto) 9.7 L (20-40) % Wetzel % (Auto) 6.4 (2-11) % Eos % (Auto) 3.1 (0-4) % Baso % (Auto) 0.6 (0-2) % Lymph # (Auto) 0.7 L (1.2-4.9) X10*3/uL Wetzel # (Auto) 0.5 (0.1-1.2) X10*3/uL Eos # (Auto) 0.2 (0.0-0.4) X10*3/uL Baso # (Auto) 0.0 (0.0-0.2) X10*3/uL Abs Immat Gran (auto) 0.03 (0.00-0.03) X10*3/uL Absolute Neuts (auto) 5.8 (2.0-8.3) x10*3/uL Absolute Nucleated RBC 0.000 (0.0-0.012) X10*3/uL Nucleated RBC % (auto) 0.0 (0.0-0.2) /100WBC PT 11.5 (10.0-13.1) SEC Whole Blood PT (11.1-13.5) sec INR 1.0 (0.9-1.1) Whole Blood INR (0.9-1.1) APTT 29.7 (26.0-36.4) SEC Sodium 134 L (135-145) mmol/L Potassium 3.3 (3.3-5.1) mmol/L Chloride 94 L (96-108) mmol/L Carbon Dioxide 29 (22-29) mmol/L Anion Gap 14 (12-20) BUN 13 (9-16) mg/dL Creatinine 2.49 H (0.5-1.4) mg/dL Estim Creat Clear Calc 30.3 Estimated GFR 20 POC Glucose (60-115) mg/dL Random Glucose 405 H* (60-115) mg/dL Calcium 8.5 (8.4-10.2) mg/dL Total Bilirubin 0.3 (0.0-1.0) mg/dL Direct Bilirubin < 0.2 (0.0-0.5) mg/dL AST 16 (5-31) U/L ALT 14 (0-31) U/L Alkaline Phosphatase 152 H (39-117) U/L Total Creatine Kinase 87 (26-140) U/L Troponin I High Sens (<3.5-17.0) ng/L Total Protein 7.2 (6.5-8.0) g/dL Albumin 3.6 (3.5-5.0) g/dL COVID-19 ([facility]) (Negative) COVID-19 Clin Com 03/06/22 03/06/22 03/06/22 Range/Units 13:59 14:10 14:56 WBC (4.8-10.8) X10*3/uL RBC (4.20-5.50) X10*6/uL Hgb (12.0-16.0) g/dl Hct (37.0-47.0) % MCV (80.0-98.0) fL MCH (27.0-33.0) pg MCHC (31.0-35.0) g/dl RDW (11.0-16.0) % Plt Count (160-400) X10*3/uL MPV (9.4-12.3) fL Immature Gran % (Auto) (0.0-0.4) % Neut % (Auto) (45-73) % Lymph % (Auto) (20-40) % Wetzel % (Auto) (2-11) % Eos % (Auto) (0-4) % Baso % (Auto) (0-2) % Lymph # (Auto) (1.2-4.9) X10*3/uL Wetzel # (Auto) (0.1-1.2) X10*3/uL Eos # (Auto) (0.0-0.4) X10*3/uL Baso # (Auto) (0.0-0.2) X10*3/uL Abs Immat Gran (auto) (0.00-0.03) X10*3/uL Absolute Neuts (auto) (2.0-8.3) x10*3/uL Absolute Nucleated RBC (0.0-0.012) X10*3/uL Nucleated RBC % (auto) (0.0-0.2) /100WBC PT (10.0-13.1) SEC Whole Blood PT (11.1-13.5) sec INR (0.9-1.1) Whole Blood INR (0.9-1.1) APTT (26.0-36.4) SEC Sodium (135-145) mmol/L Potassium (3.3-5.1) mmol/L Chloride (96-108) mmol/L Carbon Dioxide (22-29) mmol/L Anion Gap (12-20) BUN (9-16) mg/dL Creatinine (0.5-1.4) mg/dL Estim Creat Clear Calc Estimated GFR POC Glucose 378 H* (60-115) mg/dL Random Glucose (60-115) mg/dL Calcium (8.4-10.2) mg/dL Total Bilirubin (0.0-1.0) mg/dL Direct Bilirubin (0.0-0.5) mg/dL AST (5-31) U/L ALT (0-31) U/L Alkaline Phosphatase (39-117) U/L Total Creatine Kinase (26-140) U/L Troponin I High Sens < 3.5 (<3.5-17.0) ng/L Total Protein (6.5-8.0) g/dL Albumin (3.5-5.0) g/dL COVID-19 ([facility]ODY) Negative (Negative) COVID-19 Clin Com See Note ECG Data Attestation: I personally reviewed and interpreted this ECG as follows: Interpretation: 1338: Normal sinus rhythm rate of 83, normal IA interval, prolonged QRS of 100 milliseconds, prolonged QTC of 514 milliseconds, no ST segment elevation, no ST segment depression, no PACs, no PVCs except for the prolonged QTC interval, this is a normal EKG. Critical Care Time Critical Care Time Critical Care Time: Yes Total Critical Care Time: 60 Attestation: Critical Care: The patient was critically ill with a high probability of imminent or life threatening deterioration. I spent greater than 30 minutes of discontinuous time evaluating the patient,delivering critical care at the bedside, discussing and evaluating pertinent data with consultants. Critical care time does not include time spent performing separately billable procedures or teaching. Total time spent performing critical care was 60 minutes. Discharge Plan Discharge Clinical Impression: Stroke Patient Disposition: Admitted As Inpatient
[2022-03-06 13:28] LABS: Prothrombin Time Whole Bld POC 12.7 sec (11.1-13.5); ~PT, ~INR - Anti Coag Clinic 1.1 (0.9-1.1)
--- NOTE | 2022-03-06 13:47 | PC.NURSE ---
PT reported left sided weakness after dialysis. Last well known time reported by spouse around 11am. IV established.
--- NOTE | 2022-03-06 13:59 | PC.NURSE ---
TPA bolus 9.0 mg given.
--- NOTE | 2022-03-06 14:00 | PC.NURSE ---
TPA infusion started at 81mg.
[2022-03-06 14:10] LABS: MANUAL DIFF FLAG NO
[2022-03-06 14:12] LABS: Basophils Percent Auto 0.6 % (0-2); Eosinophils Absolute Auto 0.2 X10*3/uL (0.0-0.4); Eosinophils Percent Auto 3.1 % (0-4); Hematocrit 29.1 % (37.0-47.0); Hemoglobin 9.5 g/dl (12.0-16.0); Imm Gran Abs Auto 0.03 X10*3/uL (0.00-0.03); Imm Gran Pct Auto 0.4 % (0.0-0.4); Lymphocytes Absolute Auto 0.7 X10*3/uL (1.2-4.9); Lymphocytes Percent Auto 9.7 % (20-40); Mean Corpuscular HGB Conc 32.6 g/dl (31.0-35.0); Mean Corpuscular Hemoglobin 28.7 pg (27.0-33.0); Mean Corpuscular Volume 87.9 fL (80.0-98.0); Mean Platelet Volume 10.1 fL (9.4-12.3); Monocytes Absolute Auto 0.5 X10*3/uL (0.1-1.2); Monocytes Percent Auto 6.4 % (2-11); Neutrophils Absolute Auto 5.8 x10*3/uL (2.0-8.3); Neutrophils Percent Auto 79.8 % (45-73); Platelet Count 227 X10*3/uL (160-400); Red Blood Count 3.31 X10*6/uL (4.20-5.50); White Blood Count 7.2 X10*3/uL (4.8-10.8)
[2022-03-06 14:15] LABS: Glucose, Whole Blood 378 mg/dL (60-115)
[2022-03-06 14:21] LABS: Prothrombin Time 11.5 SEC (10.0-13.1)
--- NOTE | 2022-03-06 14:22 | PC.NURSE ---
PT awakens on verbal command, clear speech, slow to respond to questions. Left arm drift and weak hand grasp, left leg weakness.
[2022-03-06 14:23] LABS: Prothrombin Time Whole Bld POC 12.4 sec (11.1-13.5)
[2022-03-06 14:24] LABS: Partial Thromboplastin Time 29.7 SEC (26.0-36.4)
[2022-03-06 14:28] LABS: Stroke Lab Use COMPLETE
[2022-03-06 14:36] LABS: Troponin-I High Sensitivity < 3.5 ng/L (<3.5-17.0)
[2022-03-06 14:37] LABS: Alanine Aminotransferase 14 U/L (0-31); Albumin Level 3.6 g/dL (3.5-5.0); Alkaline Phosphatase 152 U/L (39-117); Anion Gap 14 (12-20); Aspartate Amino Transferase 16 U/L (5-31); Bilirubin Direct < 0.2 mg/dL (0.0-0.5); Bilirubin Total 0.3 mg/dL (0.0-1.0); Blood Urea Nitrogen 13 mg/dL (9-16); Calcium 8.5 mg/dL (8.4-10.2); Carbon Dioxide 29 mmol/L (22-29); Chloride 94 mmol/L (96-108); Creatinine Clr Calc Pharmacy 30.3; Estimated Glomerular Filt Rate 20; Glucose Random 405 mg/dL (60-115); Potassium 3.3 mmol/L (3.3-5.1); Sodium 134 mmol/L (135-145); Total Protein 7.2 g/dL (6.5-8.0)
--- NOTE | 2022-03-06 14:37 | PC.NURSE ---
PT monitoring continued, opens eyes to verbal command, left arm drift, left leg weakness. PT reports 10/10 all over headache. TPA infusing.
--- NOTE | 2022-03-06 15:09 | P.HPCC_ITS ---
History of Present Illness Date of Service: 03/06/22 Chief Complaint: CVA 56-year-old lady with underlying history of ESRD on HD, prior CVA x2, DM admitted when after HD session with left sided facial numbness and left arm/leg weakness. On ER evaluation was deemed to be a candidate for tPA after consultation with the neurologist and tPA was adminestered. patient was admitted to ICU for close monitoring. After administration of tPA she complained 10 of [address] head was obtained that showed no evidence of intracranial hemorrhage. Review of Systems Constitutional: Constitutional: Denies daytime sleepiness, Denies excessive sweating, Denies fatigue, Denies fever(s), Denies lethargy, Denies malaise, Denies night sweats, Denies snoring, Reports weakness (left sided) and Denies weight loss Eyes: Eyes: Denies blurry vision and Denies itchy eyes ENT: Denies nasal congestion, Denies post nasal drip, Denies sinus pain, Denies sinus pressure and Denies other ( Thrush) Cardiovascular: Cardiovascular: Denies chest pain, Denies pedal edema, Denies dyspnea, Denies orthopnea and Denies paroxysmal nocturnal dyspnea Respiratory: Respiratory: Denies cough, Denies hemoptysis, Denies excessive phlegm production, Denies dyspnea, Denies snoring and Denies wheezing Gastrointestinal: Gastrointestinal: Denies abdominal pain and Denies heartburn Musculoskeletal: Musculoskeletal: Denies myalgias, Denies arthralgias and Denies joint swelling Integumentary/Breasts: Skin/Breast: Denies rash Neurologic: Denies memory loss, Denies seizure-like activity, Reports paresthesias (Left arm), Reports weakness (left sided) and Reports other (slurring of the speech) Psychiatric: Psychiatric: Denies abnormal sleep pattern, Denies anxiety and Denies memory loss Endocrine: Endocrine: Denies excessive sweating, Denies fatigue and Denies heat intolerance Hematologic/Lymphatic: Hematologic/Lymphatic: Denies easy bruising Allergic/Immunologic: Allergic/Immunologic: Denies itchy eyes, Denies seasonal rhinorrhea and Denies wheezing PMFSH Past Medical History Medical History (Updated 03/06/22 @ 15:10 by Quirino Carpenter MD) Diabetes ESRD on hemodialysis Hyperlipidemia Hypertension Lower back pain Partial deafness Sleep apnea Family History Family History Other No family history of coronary artery disease Surgical History Surgical History History of carpal tunnel surgery Previous back surgery Social History Social History Household Members: Spouse Housing: House Do you presently have visiting nurse or other home services: No Alcohol intake: former Patient Tobacco Use Status: Never used Tobacco Smoked in Last 30 Days: No Second Hand Smoke Exposure: No Use of substances other than those prescribed or required for medical reasons: No Currently Displaying Signs/Symptoms of Drug Intoxication Withdrawal: No Any prior treatment program specific to substance use: No Have you been hit, kicked, punched, or otherwise hurt by someone within the past year? If so, by whom?: No Do you feel safe in your current relationship?: Yes Is there a partner from a previous relationship who is making you feel unsafe now?: No Are you made to feel afraid or neglected: Yes Baptism Healthcare Practices: Denominational Advance Directives: No Do you have thoughts of harming others: None Do you have a plan to hurt others: No Plan Recently lost weight without trying: No Eating poorly because of decreased appetite: No Nutrition Risks: On aspiration precautions Patient : No : No Poor oral hygiene: No service: No Current occupational status: student Meds Allergies Allergy/AdvReac Type Severity Reaction Status Date / Time cortex Eucommiae Allergy Severe ANAPHYLAXIS Verified 02/21/22 14:48 [CORTEX EUCOMMIAE] egg [EGG] Allergy Severe VOMITING Verified 12/23/21 21:10 latex [LATEX] Allergy Severe HIVES Verified 02/21/22 14:48 Penicillins [PENICILLINS] Allergy Severe HIVES Verified 12/23/21 21:10 vancomycin [VANCOMYCIN] Allergy Severe HIVES Verified 02/21/22 14:48 Active Medications: Current Medications Insulin Human Lispro (Insulin Lispro 100 Unit/Ml 3 Ml Vial) 0 unit SUBCUT Q6H JA; Protocol Sodium Chloride (0.9 % Sodium Chloride Flush 3 Ml Syringe) 3 ml IVFLUSH QSHIFT [facility] Home Medications Medication Instructions Recorded Confirmed Last Taken Type aspirin 81 mg chewable tablet 1 tab PO DAILY 12/24/21 03/06/22 03/05/22 History atorvastatin 80 mg tablet 1 tab PO DAILY 12/24/21 03/06/22 03/05/22 History betamethasone dipropionate 0.05 % 1 appl topical BID 12/24/21 03/06/22 03/05/22 History topical ointment calcipotriene 0.005 % topical 1 applic topical BID 12/24/21 03/06/22 03/05/22 History ointment cholecalciferol (vitamin D3) 50 1 cap PO DAILY 12/24/21 03/06/22 03/05/22 History mcg (2,000 unit) capsule (Vitamin D3) cyanocobalamin (vitamin B-12) 1 tab PO DAILY 12/24/21 03/06/22 03/05/22 History 1,000 mcg tablet (Vitamin B-12) famotidine 20 mg tablet 1 tab PO DAILY 12/24/21 03/06/22 03/05/22 History gabapentin 100 mg capsule 1 cap PO TID 12/24/21 03/06/22 03/05/22 History insulin lispro 100 unit/mL See Protocol subcut TIDAC 12/24/21 03/06/22 03/05/22 History subcutaneous pen lactulose 10 gram/15 mL oral 15 ml PO DAILY PRN Constipation 12/24/21 03/06/22 Unknown History solution loperamide 2 mg capsule 1 cap PO Q6H PRN Diarrhea 12/24/21 03/06/22 12/23/21 08:00 History pantoprazole 40 mg tablet,delayed 1 tab PO DAILY@0630 12/24/21 03/06/22 03/05/22 History release semaglutide 1 mg/dose (2 mg/1.5 1 mg subcut SA@0900 12/24/21 03/06/22 03/05/22 History mL) subcutaneous pen injector (Ozempic) topiramate 25 mg tablet 1 tab PO DAILY 12/24/21 03/06/22 03/05/22 History hydrocortisone 2.5 % topical cream 1 appl topical BID PRN Skin 01/23/22 03/06/22 Unknown History Irritation acetaminophen 500 mg tablet 500 mg PO Q8H PRN Pain 03/06/22 03/06/22 Unknown History amlodipine 10 mg tablet 1 tab PO DAILY 03/06/22 03/06/22 Unknown History carvedilol 25 mg tablet 1 tab PO BID 03/06/22 03/06/22 03/05/22 History clotrimazole 1 % topical cream 1 appl topical DAILY PRN fold 03/06/22 03/06/22 Unknown History insulin glargine 100 unit/mL (3 40 unit subcut DAILY 03/06/22 03/06/22 03/05/22 History mL) subcutaneous pen (Lantus Solostar U-100 Insulin) ondansetron 4 mg disintegrating 1 tab PO Q8H PRN Nausea 03/06/22 03/06/22 Unknown History tablet tizanidine 4 mg tablet 1 tab PO Q8H PRN muscle spasm 03/06/22 03/06/22 Unknown History vitamin B complex and vitamin C 1 cap PO DAILY 03/06/22 03/06/22 03/05/22 History no.20-folic acid 1 mg capsule (Triphrocaps) Physical Exam Vital Signs: Vital Signs: Last Vital Signs Temp 98.8 F 03/06/22 13:25 Pulse 83 03/06/22 14:58 Resp 18 03/06/22 14:58 BP 160/85 H 03/06/22 14:58 Pulse Ox 97 03/06/22 14:58 O2 Del Method 03/06/22 14:58 BMI result Body Mass Index 46.4 Const: General: no acute distress and alert Nutritional Appearance: obese Orientation/consciousness: Other orientation findings ( oriented) HEENT: Head: Yes atraumatic Mouth: no other ( thrush) Throat: No p ostnasal drainage Eyes: General: appearance normal, both eyes and all related structures Sclerae: sclerae normal EOM: EOMs intact bilaterally Neck: Neck: Yes supple Lymphatic: no lymphadenopathy noted Resp: Effort & Inspection: normal respiratory effort and no use of accessory muscles Auscultation: clear to auscultation bilaterally Cardio: Rate: regular rate Rhythm: regular rhythm Heart sounds: no gallops, no murmurs and no rubs GI: Palpation (GI): Soft to palpation and Other GI palpation findings present ( nontender) Skin: General skin exam: other ( warm) Rashes: no rashes Neuro: Speech: Other speech findings present (Neuro) (some slurring) Motor exam (neuro): Other motor observations present (left arm 2/5, left leg 0/5, otherwise 5/5) Extrem: General: No clubbing, No cyanosis and No edema Results Labs CBC and Chem 7: 03/07/22 05:24 03/07/22 05:25 Labs: Laboratory Results - last 24 hr 03/06/22 03/06/22 03/06/22 13:03 13:04 13:53 MCV MCH MCHC RDW Plt Count MPV Immature Gran % (Auto) Neut % (Auto) Lymph % (Auto) [place] % (Auto) Eos % (Auto) Baso % (Auto) Lymph # (Auto) [place] # (Auto) Eos # (Auto) Baso # (Auto) Abs Immat Gran (auto) Absolute Neuts (auto) Absolute Nucleated RBC Nucleated RBC % (auto) PT Whole Blood PT 12.7 12.4 INR Whole Blood INR 1.1 1.0 APTT Anion Gap Estim Creat Clear Calc Estimated GFR POC Glucose 284 H Random Glucose Calcium Total Bilirubin Direct Bilirubin AST ALT Alkaline Phosphatase Total Creatine Kinase Troponin I High Sens Total Protein Albumin 03/06/22 03/06/22 03/06/22 13:58 13:58 13:59 MCV 87.9 MCH 28.7 MCHC 32.6 RDW 14.0 Plt Count 227 MPV 10.1 Immature Gran % (Auto) 0.4 Neut % (Auto) 79.8 H Lymph % (Auto) 9.7 L [place] % (Auto) 6.4 Eos % (Auto) 3.1 Baso % (Auto) 0.6 Lymph # (Auto) 0.7 L [place] # (Auto) 0.5 Eos # (Auto) 0.2 Baso # (Auto) 0.0 Abs Immat Gran (auto) 0.03 Absolute Neuts (auto) 5.8 Absolute Nucleated RBC 0.000 Nucleated RBC % (auto) 0.0 PT 11.5 Whole Blood PT INR 1.0 Whole Blood INR APTT 29.7 Anion Gap 14 Estim Creat Clear Calc 30.3 Estimated GFR 20 POC Glucose Random Glucose 405 H* Calcium 8.5 Total Bilirubin 0.3 Direct Bilirubin < 0.2 AST 16 ALT 14 Alkaline Phosphatase 152 H Total Creatine Kinase 87 Troponin I High Sens Total Protein 7.2 Albumin 3.6 03/06/22 03/06/22 13:59 14:10 MCV MCH MCHC RDW Plt Count MPV Immature Gran % (Auto) Neut % (Auto) Lymph % (Auto) [place] % (Auto) Eos % (Auto) Baso % (Auto) Lymph # (Auto) [place] # (Auto) Eos # (Auto) Baso # (Auto) Abs Immat Gran (auto) Absolute Neuts (auto) Absolute Nucleated RBC Nucleated RBC % (auto) PT Whole Blood PT INR Whole Blood INR APTT Anion Gap Estim Creat Clear Calc Estimated GFR POC Glucose 378 H* Random Glucose Calcium Total Bilirubin Direct Bilirubin AST ALT Alkaline Phosphatase Total Creatine Kinase Troponin I High Sens < 3.5 Total Protein Albumin Imaging Radiologist's Impressions: Impressions Head CT 03/06/22 13:14 IMPRESSION: No acute intracranial pathology. Chest X-Ray 03/06/22 13:27 IMPRESSION: No acute disease. Assessment and Plan (1) Stroke: Status: Acute (2) CKD (chronic kidney disease) stage 5, GFR less than 15 ml/min: Status: Acute (3) Diabetes: Status: Acute (4) ESRD on hemodialysis: Status: Acute Plan Assessment: 56-year-old lady with an acute CVA status post tPA, also underlying diabetes mellitus and ESRD on HD now monitored in the intensive care unit Plan: Neuro: CVA status post tPA. Prior CVAs. Continue with post tPA care. Neurology service care appreciated. Repeat CT head in a.m.. Cardiac: No acute issues. Pulmonary: No acute issues. Renal: No acute issues. Underlying ESRD on HD Tuesday//Tuesday. Endo: No acute issues. Underlying diabetes mellitus GI: No acute issues. ID: No acute issues Heme/Onc: No acute issues. Psych: No acute issues. Miscellaneous: No acute issues. Prophylaxis: Intermittent pneumatic compression Diet: Pending swallow evaluation Critical care time spent: 30 minutes
[2022-03-06 15:36] LABS: COVID-19 Test Negative (Negative); IDNOW Serial# 16C4AD1C
--- NOTE | 2022-03-06 15:39 | MHC.STROKE ---
Addendum entered by Dania Conner, RN 03/08/22 11:50: I MET WITH THE PATIENT TODAY TO REINFORCE STROKE EDUCATION. SHE TOLD ME SHE SEES DR BARRAZA FOR MIGRAINES. I DID CHECK HIS OFFICE AND OBTAINED HER LAST OFFICE VISIT NOTES FROM 11/06/21. CLARIFIED PMH: SDH, CKD 4, HTN, HDL, SEIZURE, MIGRAINE, CAREY, OBESITY, ANEMIA. WE REVIEWED THE STROKE EDUCATION BOOKLET. WE DISCUSSED HER MRI AND SHE VOICED THAT SHE IS CLAUSTROPHOBIC AND CANNOT TOLERATE THIS. I DID REPORT THIS TO MARAH DARDEN MONOTYPE SETTER AND SHE DID SPEAK WITH THE PATIENT. UNCERTAIN IF SHE WILL HAVE THE MRI. ECHO WITH BUBBLE DONE, CAROTID US, SEEN BY PT/OT. SEE THEIR NOTES. I WILL CONTINUE TO FOLLOW. Original Note: 1251 EMS PRE-NOTIFIED STROKE ALERT FOR SUDDEN ONSET LEFT SIDED WEAKNESS (SHE HAD DIALYSIS THIS MORNING). ARRIVED AT 1259 EXAMINED BY ED PROVIDER NIHSS = 8, STROKE PROTOCOL ACTIVATED, DIRECT TO CT, NO BLEED. NEUROLOGIST CONSULTED AND CASE REVIEWED, SHE IS SLIGHTLY HYPERTENSIVE, CLARIFYING CURRENT MEDICAL HISTORY ESRD, NEW TO DIALYSIS, ONSET OF SYMPTOMS 1130 TODAY, HYPERGLYCEMIA BS 405. TPA-ALTEPLASE BOLUS GIVEN AT 1358. DOOR-TO-TPA = 59min. IT IS OVER THE 30,45 BENCHMARK DUE TO CARE TEAM DETERMINING ELIGIBILITY DESCRIBED ABOVE DUE TO MEDICAL HISTORY. ALL STROKE MEASURE MET, PATIENT FAILED SWALLOW AND NPO, CAN REPEAT NURSING SWALLOW SCREEN IN 6HRS FROM TPA. FOLLOW POST-TPA GIVEN ORDERS. I AM AVAILABLE FOR ANY QUESTIONS.
--- NOTE | 2022-03-06 16:20 | PC.NURSE ---
Addendum entered by Bekah Ty 03/06/22 16:49: Fall risk precautions in place. Original Note: PT alert to self, place, and situation. Arousable to verbal command, spontaneous eye opening. Left arm weakness continues, unable to move left leg. Reports constant headache to back of head.
[2022-03-06] MEDS: ondansetron HCL 4 MG/2 ML VIAL IVPUSH (17:00)
[2022-03-06] MEDS: Morphine Sulfate 4 MG/ML CARTRIDGE 2 MG IVPUSH (17:02)
[2022-03-06 17:28] LABS: IDNOW Serial# 08D9AD1C; Influenza A Negative (Negative); Influenza B2 Negative (Negative)
--- NOTE | 2022-03-06 17:34 | PHA.MEDREC ---
Pharmacy Consult ? Medication Reconciliation Pharmacy has completed the medication reconciliation.
[2022-03-06 17:43] LABS: Glucose, Whole Blood 346 mg/dL (60-115)
[2022-03-06] MEDS: Insulin Lispro 100 UNIT/ML 3 ML VIAL SUBCUT (17:47)
[2022-03-06] MEDS: Potassium Chloride/H20 10 MEQ/100 ML PIGGYBACK 100 MEQ IV (19:42)
[2022-03-06] MEDS: Acetaminophen 325 MG TABLET 650 MG PO (20:46)
[2022-03-06] MEDS: Potassium Chloride Packet 20 MEQ PACKET 40 MEQ PO (20:46)
[2022-03-06 21:17] LABS: Glucose, Whole Blood 185 mg/dL (60-115)
--- NOTE | 2022-03-06 22:45 | PC.NURSE ---
Patient alert and oriented x 4 , monotonous speech, swallowing intact, passed dysphasia screening 6 hrs after the TPA. left upper extremity flaccid ,there is a minimal movement to the left hand . left lower extremity is flaccid. Patient stated that lt UE and Lt LE is numb. IV to the left AC removed d/t infiltration, pt unable to tolerate IV potassium chloride , it was changed to po and pt tolerated . Pt reported headache 10/10 , medicated with Tylenol some results. Pt stated that she always gets headache after dialysis since she started the dialysis treatment this fall . oxygen saturation high 90's on RA while awake, with sleep oxygen saturation fluctuates from 70's to 90's . pt stated that she has a sleep apnea and she has a CPAP at home but she is nit using it yet. ICU provider Lidia is aware and pt is being put on the CPAP by RT.
[2022-03-06] MEDS: 0.9 % Sodium Chloride Flush 3 ML SYRINGE IVFLUSH (23:39)
[2022-03-06] MEDS: Albumin Human 25 % 100 ML IV (23:53)
[2022-03-06 23:56] LABS: Glucose, Whole Blood 156 mg/dL (60-115)
[2022-03-07] VITALS (27 sets, daily range): BP systolic 88–180; BP diastolic 50–79; PULSE 66–80; RESP 10–20; TEMP 36.1–37.2; O2SAT 93–100; BMI 44.7
[2022-03-07] MEDS: Albumin Human 25 % 100 ML IV (01:38)
[2022-03-07] MEDS: Midodrine HCl 10 MG TABLET PO (01:39)
--- NOTE | 2022-03-07 03:01 | PM.EVENT ---
Event Note Date of Service: 03/07/22 Event Note: Patient status post tPA, Becoming hypotensive throughout the night, due to underlying end-stage renal disease unable to give fluids. 200ml of albumin given, midodrine given without effect. Require initiation of pressors to maintain adequate BP control. Neuro assesment unchanged
--- NOTE | 2022-03-07 04:44 | PC.NURSE ---
Addendum entered by Javi Moe RN 03/07/22 05:28: OFF CPAP 5AM PER REQUEST...ALERT..ORIENTED X3...SAO2 [id number] ROOM AIR..WATCHING TV Original Note: CARE ASSUMED 23:15...REMAINS CPAP AND 1 L/M O2 OVERNIGHT..NAPPING OVERNIGHT..EASILY AROUSED..ALERT..ORIENTED X3...SPEECH SLOW BUT CLEAR..LEFT ARM AND LEG FLACCID..OVERNIGHT SLIGHT MOVEMENT OF LEFT HAND..DURING IV RESTART PATIENT ABLE TO BRIEFLY LIFT LEFT ARM WITH GROSS MOVEMENT...SBP MARGINAL AT START OF SHIFT...ICU BARIATRIC NURSE PRESENT AND AWARE..ALBUMEN 25 GRAMS INFUSED W/O EFFECT...2ND DOSE OF ALBUMEN GIVEN AND MIDODRINE 10MG PO GIVEN..BP REMAINED MARGINAL...PERIPHERAL LEVOPHED STARTED PER BARIATRIC NURSE..INFUSING VIA #22ANGIO STARTED TO RIGHT FOREARM..SITE REMAINS WITH EXCELLENT BLOOD RETURN..CURRENT DOSE 0.01 MCG/KG/MIN...SBP 149'S-150'S...SBP 100'S OFF LEVOPHED...RESTFUL..SERIAL NEURO CHECKS STABLE
[2022-03-07] MEDS: Acetaminophen 325 MG TABLET 650 MG PO (04:57)
[2022-03-07] MEDS: Insulin Lispro 100 UNIT/ML 3 ML VIAL SUBCUT ×4 (05:05→21:00)
[2022-03-07 05:10] LABS: Glucose, Whole Blood 186 mg/dL (60-115)
[2022-03-07 05:46] LABS: MANUAL DIFF FLAG NO
[2022-03-07 05:50] LABS: Basophils Percent Auto 0.4 % (0-2); Eosinophils Absolute Auto 0.3 X10*3/uL (0.0-0.4); Eosinophils Percent Auto 2.6 % (0-4); Hematocrit 25.8 % (37.0-47.0); Hemoglobin 8.1 g/dl (12.0-16.0); Imm Gran Abs Auto 0.07 X10*3/uL (0.00-0.03); Imm Gran Pct Auto 0.7 % (0.0-0.4); Lymphocytes Percent Auto 9.6 % (20-40); Mean Corpuscular HGB Conc 31.4 g/dl (31.0-35.0); Mean Corpuscular Volume 89.3 fL (80.0-98.0); Mean Platelet Volume 10.1 fL (9.4-12.3); Monocytes Absolute Auto 0.7 X10*3/uL (0.1-1.2); Monocytes Percent Auto 6.4 % (2-11); Neutrophils Absolute Auto 8.1 x10*3/uL (2.0-8.3); Neutrophils Percent Auto 80.3 % (45-73); Platelet Count 265 X10*3/uL (160-400); Red Blood Count 2.89 X10*6/uL (4.20-5.50); Red Cell Distribution Width 14.5 % (11.0-16.0); White Blood Count 10.1 X10*3/uL (4.8-10.8)
[2022-03-07 06:04] LABS: Albumin Level 3.3 g/dL (3.5-5.0); Magnesium 1.6 mg/dL (1.6-2.6); Phosphorus 5.9 mg/dL (2.7-4.5)
[2022-03-07 06:05] LABS: Anion Gap 17 (12-20); Blood Urea Nitrogen 25 mg/dL (9-16); Calcium 8.2 mg/dL (8.4-10.2); Carbon Dioxide 29 mmol/L (22-29); Chloride 97 mmol/L (96-108); Cholesterol 131 mg/dL; Creatinine Clr Calc Pharmacy 20.7; Estimated Glomerular Filt Rate 13; Glucose Random 216 mg/dL (60-115); HDL Cholesterol 34 mg/dL; LDL Cholesterol Calculated 70 mg/dl; Sodium 139 mmol/L (135-145); Triglycerides 139 mg/dL
[2022-03-07 07:27] LABS: Glucose, Whole Blood 159 mg/dL (60-115)
[2022-03-07] MEDS: 0.9 % Sodium Chloride Flush 3 ML SYRINGE IVFLUSH ×3 (09:04→21:00)
[2022-03-07] MEDS: fentaNYL citrate/PF 100 MCG/2 ML VIAL 25 MCG IVPUSH (10:19)
--- NOTE | 2022-03-07 10:54 | PM.CCPN ---
Subjective Subjective Date of Service: 03/07/22 Interval History: 56-year-old lady with underlying history of ESRD on HD, prior CVA x2, DM admitted when after HD session with left sided facial numbness and left arm/leg weakness. On ER evaluation was deemed to be a candidate for tPA after consultation with the neurologist and tPA was adminestered. patient was admitted to ICU for close monitoring. After administration of tPA she complained 10 of [address] head was obtained that showed no evidence of intracranial hemorrhage. Overnight with transient hypotension. Headache with poor response to Tylenol, helped with fentanyl. Follow-up CT head with no acute findings. MRI is pending. Critical Care Time (minutes): 0 Physical Exam Vital Signs: Vital Signs: Last Vital Signs Temp 98.9 F 03/07/22 08:00 Pulse 78 03/07/22 10:00 Resp 14 03/07/22 10:00 BP 109/70 03/07/22 10:00 Pulse Ox 95 03/07/22 10:00 O2 Del Method 03/07/22 10:00 O2 Flow Rate 2 03/07/22 06:00 Oxygen Flow Rate 1 03/07/22 00:00 BMI result Body Mass Index 44.7 Const: General: no acute distress, alert and awake Nutritional Appearance: obese Orientation/consciousness: patient oriented x3 Eyes: Sclerae: sclerae normal EOM: EOMs intact bilaterally Neck: Neck: Yes no lymphadenopathy, Yes trachea midline and Yes supple Resp: Effort & Inspection: normal respiratory effort and no respiratory distress Auscultation: clear to auscultation bilaterally Cardio: Rate: regular rate Rhythm: regular rhythm Heart sounds: no gallops, no murmurs and no rubs GI: Palpation (GI): Soft to palpation and Other GI palpation findings present ( Nontender) Auscultation: normal bowel sounds Neuro: General: patient oriented x3 and CN's II-XI intact bilaterally Motor exam (neuro): Other motor observations present (Unable to move left let, left arm strength 3/5) Extrem: General: No clubbing, No cyanosis and Yes edema (Trace bilateral) Objective Data Labs CBC & Chem 7: 03/07/22 05:24 03/07/22 05:25 Labs: Laboratory Results - last 24 hr 03/06/22 03/06/22 03/06/22 13:03 13:04 13:53 WBC RBC Hgb Hct MCV MCH MCHC RDW Plt Count MPV Immature Gran % (Auto) Neut % (Auto) Lymph % (Auto) [place] % (Auto) Eos % (Auto) Baso % (Auto) Lymph # (Auto) [place] # (Auto) Eos # (Auto) Baso # (Auto) Abs Immat Gran (auto) Absolute Neuts (auto) Absolute Nucleated RBC Nucleated RBC % (auto) PT Whole Blood PT 12.7 12.4 INR Whole Blood INR 1.1 1.0 APTT Sodium Potassium Chloride Carbon Dioxide Anion Gap BUN Creatinine Estim Creat Clear Calc Estimated GFR POC Glucose 284 H Random Glucose Calcium Phosphorus Magnesium Total Bilirubin Direct Bilirubin AST ALT Alkaline Phosphatase Total Creatine Kinase Troponin I High Sens Total Protein Albumin Triglycerides Cholesterol LDL Cholesterol, Calc HDL Cholesterol COVID-19 (JODY) COVID-19 Clin Com Influenza Type A (EVELYN) Influenza Type B (EVELYN) Influenza A & B Note 03/06/22 03/06/22 03/06/22 13:58 13:58 13:59 WBC 7.2 RBC 3.31 L Hgb 9.5 L Hct 29.1 L MCV 87.9 MCH 28.7 MCHC 32.6 RDW 14.0 Plt Count 227 MPV 10.1 Immature Gran % (Auto) 0.4 Neut % (Auto) 79.8 H Lymph % (Auto) 9.7 L [place] % (Auto) 6.4 Eos % (Auto) 3.1 Baso % (Auto) 0.6 Lymph # (Auto) 0.7 L [place] # (Auto) 0.5 Eos # (Auto) 0.2 Baso # (Auto) 0.0 Abs Immat Gran (auto) 0.03 Absolute Neuts (auto) 5.8 Absolute Nucleated RBC 0.000 Nucleated RBC % (auto) 0.0 PT 11.5 Whole Blood PT INR 1.0 Whole Blood INR APTT 29.7 Sodium 134 L Potassium 3.3 Chloride 94 L Carbon Dioxide 29 Anion Gap 14 BUN 13 Creatinine 2.49 H Estim Creat Clear Calc 30.3 Estimated GFR 20 POC Glucose Random Glucose 405 H* Calcium 8.5 Phosphorus Magnesium Total Bilirubin 0.3 Direct Bilirubin < 0.2 AST 16 ALT 14 Alkaline Phosphatase 152 H Total Creatine Kinase 87 Troponin I High Sens Total Protein 7.2 Albumin 3.6 Triglycerides Cholesterol LDL Cholesterol, Calc HDL Cholesterol COVID-19 (JODY) COVID-19 Clin Com Influenza Type A (EVELYN) Influenza Type B (EVELYN) Influenza A & B Note 03/06/22 03/06/22 03/06/22 13:59 14:10 14:56 WBC RBC Hgb Hct MCV MCH MCHC RDW Plt Count MPV Immature Gran % (Auto) Neut % (Auto) Lymph % (Auto) [place] % (Auto) Eos % (Auto) Baso % (Auto) Lymph # (Auto) [place] # (Auto) Eos # (Auto) Baso # (Auto) Abs Immat Gran (auto) Absolute Neuts (auto) Absolute Nucleated RBC Nucleated RBC % (auto) PT Whole Blood PT INR Whole Blood INR APTT Sodium Potassium Chloride Carbon Dioxide Anion Gap BUN Creatinine Estim Creat Clear Calc Estimated GFR POC Glucose 378 H* Random Glucose Calcium Phosphorus Magnesium Total Bilirubin Direct Bilirubin AST ALT Alkaline Phosphatase Total Creatine Kinase Troponin I High Sens < 3.5 Total Protein Albumin Triglycerides Cholesterol LDL Cholesterol, Calc HDL Cholesterol COVID-19 (JODY) COVID-19 Clin Com Influenza Type A (EVELYN) Negative Influenza Type B (EVELYN) Negative Influenza A & B Note See Note 03/06/22 03/06/22 03/06/22 14:56 17:39 21:13 WBC RBC Hgb Hct MCV MCH MCHC RDW Plt Count MPV Immature Gran % (Auto) Neut % (Auto) Lymph % (Auto) [place] % (Auto) Eos % (Auto) Baso % (Auto) Lymph # (Auto) [place] # (Auto) Eos # (Auto) Baso # (Auto) Abs Immat Gran (auto) Absolute Neuts (auto) Absolute Nucleated RBC Nucleated RBC % (auto) PT Whole Blood PT INR Whole Blood INR APTT Sodium Potassium Chloride Carbon Dioxide Anion Gap BUN Creatinine Estim Creat Clear Calc Estimated GFR POC Glucose 346 H 185 H Random Glucose Calcium Phosphorus Magnesium Total Bilirubin Direct Bilirubin AST ALT Alkaline Phosphatase Total Creatine Kinase Troponin I High Sens Total Protein Albumin Triglycerides Cholesterol LDL Cholesterol, Calc HDL Cholesterol COVID-19 (JODY) Negative COVID-19 Clin Com See Note Influenza Type A (EVELYN) Influenza Type B (EVELYN) Influenza A & B Note 03/06/22 03/07/22 03/07/22 23:51 05:02 05:24 WBC 10.1 RBC 2.89 L Hgb 8.1 L Hct 25.8 L MCV 89.3 MCH 28.0 MCHC 31.4 RDW 14.5 Plt Count 265 MPV 10.1 Immature Gran % (Auto) 0.7 H Neut % (Auto) 80.3 H Lymph % (Auto) 9.6 L [place] % (Auto) 6.4 Eos % (Auto) 2.6 Baso % (Auto) 0.4 Lymph # (Auto) 1.0 L [place] # (Auto) 0.7 Eos # (Auto) 0.3 Baso # (Auto) 0.0 Abs Immat Gran (auto) 0.07 H Absolute Neuts (auto) 8.1 Absolute Nucleated RBC 0.000 Nucleated RBC % (auto) 0.0 PT Whole Blood PT INR Whole Blood INR APTT Sodium Potassium Chloride Carbon Dioxide Anion Gap BUN Creatinine Estim Creat Clear Calc Estimated GFR POC Glucose 156 H 186 H Random Glucose Calcium Phosphorus Magnesium Total Bilirubin Direct Bilirubin AST ALT Alkaline Phosphatase Total Creatine Kinase Troponin I High Sens Total Protein Albumin Triglycerides Cholesterol LDL Cholesterol, Calc HDL Cholesterol COVID-19 (JODY) COVID-19 Clin Com Influenza Type A (EVELYN) Influenza Type B (EVELYN) Influenza A & B Note 03/07/22 03/07/22 03/07/22 05:24 05:25 07:23 WBC RBC Hgb Hct MCV MCH MCHC RDW Plt Count MPV Immature Gran % (Auto) Neut % (Auto) Lymph % (Auto) [place] % (Auto) Eos % (Auto) Baso % (Auto) Lymph # (Auto) [place] # (Auto) Eos # (Auto) Baso # (Auto) Abs Immat Gran (auto) Absolute Neuts (auto) Absolute Nucleated RBC Nucleated RBC % (auto) PT Whole Blood PT INR Whole Blood INR APTT Sodium 139 Potassium 4.0 D Chloride 97 Carbon Dioxide 29 Anion Gap 17 BUN 25 H Creatinine 3.55 H Estim Creat Clear Calc 20.7 Estimated GFR 13 POC Glucose 159 H Random Glucose 216 H Calcium 8.2 L Phosphorus 5.9 H Magnesium 1.6 Total Bilirubin Direct Bilirubin AST ALT Alkaline Phosphatase Total Creatine Kinase Troponin I High Sens Total Protein Albumin 3.3 L Triglycerides 139 Cholesterol 131 LDL Cholesterol, Calc 70 HDL Cholesterol 34 COVID-19 (JODY) COVID-19 Clin Com Influenza Type A (EVELYN) Influenza Type B (EVELYN) Influenza A & B Note Progress Note: A&P Assessment and plan (1) Stroke: Status: Acute (2) Diabetes: Status: Acute (3) ESRD on hemodialysis: Status: Acute (4) Sleep apnea: Status: Acute Plan Assessment: 56-year-old lady with an acute CVA status post tPA, also underlying diabetes mellitus and ESRD on HD now monitored in the intensive care unit Plan: Neuro: CVA status post tPA. Prior CVAs. Continue with post tPA care. Neurology service care appreciated. Repeat CT head with no acute findings. MRI is pending. Cardiac: No acute issues. Pulmonary: No acute issues. Renal: No acute issues. Underlying ESRD on HD Tuesday//Tuesday. Endo: No acute issues. Underlying diabetes mellitus GI: No acute issues. ID: No acute issues Heme/Onc: No acute issues. Psych: No acute issues. Miscellaneous: No acute issues. Prophylaxis: Intermittent pneumatic compression Diet: Diabetic Quality Stroke Does the patient have a stroke diagnosis?: Yes Reason for No Anti-thrombotic by Day Two: N/A - Med Ordered VTE Prior VTE?: No VTE Risk Level:: Medical - moderate - high VTE Device Contraindication: N/A - Device Ordered VTE Drug Contraindication: Treatment Not Indicated
[2022-03-07] MEDS: Albumin Human 25 % 50 ML 100 ML IV (11:05)
[2022-03-07 11:31] LABS: Glucose, Whole Blood 314 mg/dL (60-115)
[2022-03-07] MEDS: Aspirin 81 MG TAB.CHEW PO (11:37)
[2022-03-07] MEDS: Topiramate 25 MG TABLET 50 MG PO (13:15)
--- NOTE | 2022-03-07 14:48 | PM.EVENT ---
Event Note Date of Service: 03/07/22 Event Note: This is a 56-year-old female with underlying history of ESRD on HD, prior CVA x2, DM who presented to the ED with left sided facial numbness and left arm/leg weakness who was admitted to the ICU after s/p tpa administration for stroke. overnight requiring vasopressive support, weaned off levophed and downgraded to the medical floor 03/07 Acute stroke s/p tpa has ongoing left side weakness neuro consult pending passed swallow eval -PT/OT eval -continue ASA, statin -neuro consult pending -MRI brain pending ESRD TTS last HD 03/06 -nephro consult DM Lantus SSI, POCs seizure disorder continue keppra HTN amlodipine previously d/c but on med rec - on hold due to hypotension overnight carvedilol on hold follow bp Chronic anemia H/H at baseline CAREY cpap morbid obesity bmi 44.8 dvt ppx - mechanical devices
--- NOTE | 2022-03-07 15:10 | MHC.CM.PN ---
EMR REVIEWED, PT ICU STEPDOWN, CM MET W/PT AND AT BEDSIDE WHO REPORTS SHE LIVES W/, USES A WALKER, DIABETIC SUPPLIES AND NEBULIZER FOR DME, PT GOES TO [facility] FOR OUTPT [facility]YS[facility], PT WOULD LIKE CM TO LET DOCTOR KNOW HER //TUE SCHEDULE HAS CHANGED TO TUE-TUE-TUE D/T HOLIDAY AND PT WANTS TO MAKE SURE SHE DOESN'T MISS A DA PT VERIFIES PCP IS DORENE HAMM X3 AND KRISTYN CHAUHAN [phone] IS HER HCP. HOSPIATLIST REPORTS PT WILL LIKELY NEED STR, REFERRAL PLACED TO [facility] THAT IS WHERE PT GOES TO DIALYSIS, PT CHRYSTAL KAUR.
[2022-03-07 16:04] LABS: Glucose, Whole Blood 234 mg/dL (60-115)
[2022-03-07] MEDS: oxyCODONE HCl Immed Release 5 MG TABLET PO (17:06)
[2022-03-07 20:16] LABS: Glucose, Whole Blood 228 mg/dL (60-115)
[2022-03-07] MEDS: diphenhydrAMINE HCL 50 MG/ML VIAL 25 MG IVPUSH (22:05)
[2022-03-08] VITALS (9 sets, daily range): BP systolic 115–149; BP diastolic 50–77; PULSE 34–93; RESP 12–20; TEMP 36.2–37.2; O2SAT 94–98
--- NOTE | 2022-03-08 07:00 | CA_ITS ---
Transthoracic Echocardiogram Patient (Last, First, Middle): Tanisha West, Gender: Female Date of : 1965 Age: 56 Procedure Date: 03/08/2022 Procedure Type: Transthoracic Echocardiogram Location: [facility] [place] Height: 157.48 cm Weight: 110.68 kg BSA: 2.08 m2 Heart Rate: bpm BP: 135 / 75 mmHg Cook Fish Eggs: CHARBEL Referring MD: Micheline Arciniega NP Symptoms: CVA s/p tPA Study Quality: Adequate ECG Rhythm: Sinus Conclusions: - The left ventricular systolic function is normal. The calculated ejection fraction is 65% by biplane method. - There is no evidence of interatrial shunt by agitated saline. - No obvious valvular pathology seen on this study. Findings Left Ventricle Normal left ventricular cavity size. There is mildly increased left ventricular wall thickness. The left ventricular systolic function is normal. The calculated ejection fraction is 65% by biplane method. There is no evidence of regional wall motion abnormalities. E/E prime ratio is between 8 and 15 consistent with indeterminate filling pressures. Evidence suggests grade I (mild) diastolic dysfunction. Peak LV GLS -19.3%. Right Ventricle Normal right ventricular cavity size and systolic function. Atria The left atrium is mildly dilated. There is no evidence of interatrial shunt by agitated saline. The right atrium is normal in size. (Bubble study with rest and valsalva). Aortic Valve There is a normal trileaflet aortic valve. There is no aortic valve stenosis. There is no aortic valve regurgitation. Mitral Valve There is mild mitral annular calcification. There is no mitral valve regurgitation. There is no mitral valve stenosis. Pulmonic Valve The pulmonic valve is likely normal. Tricuspid Valve There is trace tricuspid valve regurgitation. Tricuspid regurgitation envelope is inadequate for calculation of right ventricular systolic pressure. Great Vessels The asc aorta is normal in size. Venous The inferior vena cava is normal in size and collapses greater than 50% with inspiration. Pericardium/Pleural There is a trivial pericardial effusion. Prior Study Comparison No prior study available for comparison. Recommendations, Care & Conclusions No obvious valvular pathology seen on this study. Measurements 2D Linear Measurements IVSd: 1.21 0.6-0.9/0.6-1.0 cm LVIDd: 4.89 3.9-5.3/4.2-5.9 cm LVIDd Index: 2.35 2.4-3.2/2.2-3.1 cm/m2 LVIDs: 3.30 2.0-3.6 cm LVPWd: 1.10 0.7-1.1 cm LA Diam: 4.10 2.7-3.8/3.0-4.0 cm LAIDs Index: 1.97 1.5-2.3 cm/m2 LV Mass: 266.57 67-162/88-224 g LV Mass Index: 128.16 43-95/49-115 g/m2 LVOT Diam: 2.00 3.0+(-)1.3 cm 2D Systolic Function EF 4C: 67.30 >55% EF 2C: 64.10 >55% EF BiP: 65.30 >55% Mitral Valve MV Pk E: 0.88 MV PK A: 1.10 MV Decel Time: 246.00 E/A: 0.80 E'Lateral: 6.74 E'Medial: 5.44 E/E' Med: 16.10 E/E' Lat: 13.00 PHT: 72.00 MVA PHT: 3.06 Decel [place]: 3.57 Aortic Valve AoV Pk Saman: 1.58 AoV Mn Saman: 1.09 AoV VTI: 0.33 AoV Pk Grad: 10.00 Aov Mn Grad: 5.00 TERESA Cont.VTI: 2.42 LVOT LVOT Pk Saman: 1.25 LVOT Mn Saman: 0.81 LVOT VTI: 0.25 LVOT Pk Grad: 6.00 LVOT Mn Grad: 3.00 LVOT Diam: 2.00 LVOT Area: 3.14 Diastolic Function MV Pk E: 0.88 MV Pk A: 1.10 E/A: 0.80 E'Medial: 5.44 E/E' Med: 16.10 E' Laterial: 6.74 E/E' Lat: 13.00 Right Ventricle TAPSE (mm): 20.30 TVS' Saman: 12.60 Tricuspid Valve RA Press: 3.00 Great Vessels Aorta Sinus of Valsalva: 3.46 2.0-3.[address] [place]: 3.14 1.7-3.4 cm Ao Asc: 3.60 2.1-3.4 cm Updated in Other Vendor System with Status of Final Keron Villarreal MD electronically signed on 03/08/2022 12:35:33 PM with status of Final
[2022-03-08 07:27] LABS: Glucose, Whole Blood 230 mg/dL (60-115)
[2022-03-08] MEDS: Insulin Glargine,Hum.rec.anlog 100 UNIT/ML 10 ML VIAL 20 UNIT SUBCUT (08:39)
[2022-03-08] MEDS: Insulin Lispro 100 UNIT/ML 3 ML VIAL SUBCUT ×3 (08:40→20:16)
[2022-03-08] MEDS: Aspirin 81 MG TAB.CHEW PO (08:41)
[2022-03-08] MEDS: 0.9 % Sodium Chloride Flush 3 ML SYRINGE IVFLUSH ×2 (08:41→17:51)
[2022-03-08] MEDS: Atorvastatin Calcium 80 MG TABLET PO (08:41)
[2022-03-08] MEDS: Topiramate 25 MG TABLET 50 MG PO (08:41)
[2022-03-08] MEDS: levETIRAcetam 500 MG TABLET PO (08:41)
--- NOTE | 2022-03-08 10:21 | PM.NEUROCN ---
History of Present Illness Data of Consult Service Date: 03/08/22 Primary Care Provider: Delfina Butler MD [facility] Reason for consult: Stroke 56 years old woman with past medical history of hypertension, hypertensive encephalopathy, probably hypertensive renal failure and headaches who came to hospital with new onset of left-sided weakness. I was called from emergency room as she presented within 3 hours of symptom onset in it to see an was made to treat her with intravenous tPA of with possible diagnosis of ischemic infarct. She also had slurred speech on admission and my suspicion was that this was probably atherothrombotic brainstem infarct. She did okay after tPA and apparently somewhat improved and was transferred to regular floor. Review of Systems Review of Systems: No recent cold or flu-like illness PMFSH Past Medical History Medical History Diabetes ESRD on hemodialysis Hyperlipidemia Hypertension Lower back pain Partial deafness Sleep apnea Family History Family History Other No family history of coronary artery disease Surgical History Surgical History History of carpal tunnel surgery Previous back surgery Social History Social History Household Members: Significant Other Housing: House Do you presently have visiting nurse or other home services: No Alcohol intake: former Patient Tobacco Use Status: Never used Tobacco Smoked in Last 30 Days: No Patient Interested in Nicotine Replacement: No Patient Given Instructions on How to Stop Smoking: No Second Hand Smoke Exposure: No Use of substances other than those prescribed or required for medical reasons: No Currently Displaying Signs/Symptoms of Drug Intoxication Withdrawal: No Any prior treatment program specific to substance use: No Have you been hit, kicked, punched, or otherwise hurt by someone within the past year? If so, by whom?: No Do you feel safe in your current relationship?: Yes Is there a partner from a previous relationship who is making you feel unsafe now?: No Are you made to feel afraid or neglected: No [employer] Healthcare Practices: [employer] Advance Directives: No Do you have thoughts of harming others: None Do you have a plan to hurt others: No Plan Recently lost weight without trying: No How much weight loss: Not applicable Eating poorly because of decreased appetite: No Nutrition screen score: 0 Nutrition Risks: On aspiration precautions Patient : No : No Poor oral hygiene: No service: No Current occupational status: student Meds Allergies Allergy/AdvReac Type Severity Reaction Status Date / Time cortex Eucommiae Allergy Severe ANAPHYLAXIS Verified 02/21/22 14:48 [CORTEX EUCOMMIAE] egg [EGG] Allergy Severe VOMITING Verified 12/23/21 21:10 latex [LATEX] Allergy Severe HIVES Verified 02/21/22 14:48 Penicillins [PENICILLINS] Allergy Severe HIVES Verified 12/23/21 21:10 vancomycin [VANCOMYCIN] Allergy Severe HIVES Verified 02/21/22 14:48 Active Medications: Current Medications Acetaminophen (Acetaminophen 325 Mg Tablet) 650 mg PO Q6H PRN PRN Reason: Pain, Moderate (Pain Scale 4-6 Last Admin: 03/07/22 04:57 Dose: 650 mg Aspirin (Aspirin 81 Mg Tab.Chew) 81 mg PO DAILY [facility] Last Admin: 03/08/22 08:41 Dose: 81 mg Atorvastatin Calcium (Atorvastatin Calcium 80 Mg Tablet) 80 mg PO DAILY [facility] Last Admin: 03/08/22 08:41 Dose: 80 mg Insulin Glargine (Insulin Glargine,Hum.Rec.Anlog 100 Unit/Ml 10 Ml Vial) 20 unit SUBCUT DAILY [facility] Last Admin: 03/08/22 08:39 Dose: 20 unit Insulin Human Lispro (Insulin Lispro 100 Unit/Ml 3 Ml Vial) 0 unit SUBCUT QIDACHS [facility]; Protocol Last Admin: 03/08/22 08:40 Dose: 4 unit Labetalol HCl (Labetalol Hcl 100 Mg/20 Ml Vial) 20 mg IVPUSH Q10M PRN PRN Reason: SBP > 160 Levetiracetam (Levetiracetam 500 Mg Tablet) 500 mg PO DAILY [facility] Last Admin: 03/08/22 08:41 Dose: 500 mg Sodium Chloride (0.9 % Sodium Chloride Flush 3 Ml Syringe) 3 ml IVFLUSH QSHIFT [facility] Last Admin: 03/08/22 08:41 Dose: 3 ml Topiramate (Topiramate 25 Mg Tablet) 50 mg PO DAILY [facility] Last Admin: 03/08/22 08:41 Dose: 50 mg Home Medications Medication Instructions Recorded Confirmed Last Taken Type aspirin 81 mg chewable tablet 1 tab PO DAILY 12/24/21 03/06/22 03/05/22 History atorvastatin 80 mg tablet 1 tab PO DAILY 12/24/21 03/06/22 03/05/22 History betamethasone dipropionate 0.05 % 1 appl topical BID 12/24/21 03/06/22 03/05/22 History topical ointment calcipotriene 0.005 % topical 1 applic topical BID 12/24/21 03/06/22 03/05/22 History ointment cholecalciferol (vitamin D3) 50 1 cap PO DAILY 12/24/21 03/06/22 03/05/22 History mcg (2,000 unit) capsule (Vitamin D3) cyanocobalamin (vitamin B-12) 1 tab PO DAILY 12/24/21 03/06/22 03/05/22 History 1,000 mcg tablet (Vitamin B-12) famotidine 20 mg tablet 1 tab PO DAILY 12/24/21 03/06/22 03/05/22 History gabapentin 100 mg capsule 1 cap PO TID 12/24/21 03/06/22 03/05/22 History insulin lispro 100 unit/mL See Protocol subcut TIDAC 12/24/21 03/06/22 03/05/22 History subcutaneous pen lactulose 10 gram/15 mL oral 15 ml PO DAILY PRN Constipation 12/24/21 03/06/22 Unknown History solution loperamide 2 mg capsule 1 cap PO Q6H PRN Diarrhea 12/24/21 03/06/22 12/23/21 08:00 History pantoprazole 40 mg tablet,delayed 1 tab PO DAILY@0630 12/24/21 03/06/22 03/05/22 History release semaglutide 1 mg/dose (2 mg/1.5 1 mg subcut SA@0900 12/24/21 03/06/22 03/05/22 History mL) subcutaneous pen injector (Ozempic) topiramate 25 mg tablet 1 tab PO DAILY 12/24/21 03/06/22 03/05/22 History hydrocortisone 2.5 % topical cream 1 appl topical BID PRN Skin 01/23/22 03/06/22 Unknown History Irritation acetaminophen 500 mg tablet 500 mg PO Q8H PRN Pain 03/06/22 03/06/22 Unknown History amlodipine 10 mg tablet 1 tab PO DAILY 03/06/22 03/06/22 Unknown History carvedilol 25 mg tablet 1 tab PO BID 03/06/22 03/06/22 03/05/22 History clotrimazole 1 % topical cream 1 appl topical DAILY PRN fold 03/06/22 03/06/22 Unknown History insulin glargine 100 unit/mL (3 40 unit subcut DAILY 03/06/22 03/06/22 03/05/22 History mL) subcutaneous pen (Lantus Solostar U-100 Insulin) ondansetron 4 mg disintegrating 1 tab PO Q8H PRN Nausea 03/06/22 03/06/22 Unknown History tablet tizanidine 4 mg tablet 1 tab PO Q8H PRN muscle spasm 03/06/22 03/06/22 Unknown History vitamin B complex and vitamin C 1 cap PO DAILY 03/06/22 03/06/22 03/05/22 History no.20-folic acid 1 mg capsule (Triphrocaps) Physical Exam Vital Signs: Vital Signs: Last Vital Signs Temp 97.8 F 03/08/22 07:45 Pulse 70 03/08/22 07:45 Resp 17 03/08/22 07:45 BP 135/75 03/08/22 07:45 Pulse Ox 98 03/08/22 07:45 O2 Del Method 03/08/22 07:45 O2 Flow Rate 2 03/07/22 06:00 Oxygen Flow Rate 1 03/07/22 00:00 BMI result Body Mass Index 44.7 Neuro: Other: She was alert and awake recognized me right away. She was talking slowly. Speech otherwise seemed okay. There was mild right-sided facial weakness of central type and mild left hemiparesis involving arm and leg. Visual moon are full. Extraocular muscles were intact. She did not take her tongue out and barely was opening her mouth. Results Labs CBC & Chem 7: 03/07/22 05:24 03/07/22 05:25 Labs: Her noncontrast head CT did not reveal any obvious bleed. This seems to be hypodensity in brainstem. She was claustrophobic and resisting MRI. Microbiology Microbiology Results: Microbiology 03/06/22 14:24 Blood - Venous Blood Culture - Preliminary No growth after 24 hours. 11/19/22 14:24 Blood - Venous Blood Culture - Preliminary No growth after 24 hours. Assessment and Plan (1) Stroke: Status: Acute 56 years old woman with underlying hypertension its complications who probably has an acute pontine infarct resulting in right central facial weakness and left arm and leg weakness. She was treated with intravenous tPA. She was claustrophobic and MRI was probably not possible. At this time my recommendation is to continue anti-platelet therapy, blood pressure control and statin. Otherwise she needed to be transferred to rehabilitation for formal rehab. Finally there seems to be somewhat of a psychological overlay of symptoms. I would suggest starting her on sertraline 25 mg daily. Procedures Date of Service Date of Service: 03/08/22
[2022-03-08] MEDS: LORazepam 1 MG TABLET PO (11:36)
--- NOTE | 2022-03-08 13:34 | CONS_ITS ---
DATE OF SERVICE: 03/08/2022 She came to the hospital to on the with left-sided facial numbness and left arm weakness. She was administered tPA. She was observed in ICU and later transferred to medical floor. She usually has dialysis on Tuesdays, , and Saturdays. However, due to hard day schedule, she will be dialyzed on Tuesday, Tuesday, and Tuesday. This consultation was request for management of the dialysis schedule. ONGOING MEDICAL PROBLEMS: History of hypospadias, ESRD, hypertension, low back pain, partial deafness, sleep apnea, obesity. FAMILY HISTORY: Noncontributory to this admission. PAST SURGICAL HISTORY: Back surgery and carpal tunnel surgery. SOCIAL HISTORY: History of smoking in the past. No history of smoking at present. No history of any alcohol abuse. ALLERGIES: SHE IS ALLERGIC TO EGGS, LATEX, PENICILLIN, AND VANCOMYCIN. CURRENT MEDICATIONS: Were reviewed. REVIEW OF SYSTEMS: Positive for left-sided weakness and facial numbness. At present, no headache, nausea, vomiting. No abdominal pain or constipation. No urinary symptoms. No fever. No rash. No shortness of breath. All other systems were reviewed. PHYSICAL EXAMINATION: GENERAL: Patient is a 56-year-old woman. She is comfortable, lying flat, not in distress. NECK: Supple. No JVD. Mucosa is moist. LUNGS: Air entry equal. No rales. HEART: S1, S2 heard. No gallop or rub. ABDOMEN: Soft, nontender. EXTREMITIES: No edema. No myoclonus. VITAL SIGNS: Blood pressure today was 133/75, pulse 70 per minute. LABORATORY DATA: As of yesterday, serum electrolytes normal. BUN 25, creatinine 3.55. Calcium 8.2. Hemoglobin 8.1, platelets 265. CT scan of the head showed no acute abnormality. RECOMMENDATIONS AND IMPRESSION: A 56-year-old woman with end-stage renal disease, diabetes mellitus, hypertension, admitted with cerebrovascular accident. From a renal standpoint, Tanisha has been well dialyzed. No signs or symptoms of uremia. We will arrange for hemodialysis as per protocol. We will avoid hypotension, and we will remove fluid as tolerated cautiously. We will watch hemoglobin and administer Epogen as per protocol. In view of the acute stroke, I will hold off on using Epogen today. We will follow closely with the team. MD KERRIE Mcgarry/MODL / [id number]
--- NOTE | 2022-03-08 14:30 | HO.PM.IMPN ---
Subjective Subjective Date of Service: 03/08/22 Review of Systems Follow up stroke still with left sided weakness. headache, denies chest pain, nausea, vomiting, diarrhea Physical Exam Vital Signs: Vital Signs: Last Vital Signs Temp 97.8 F 03/08/22 07:45 Pulse 70 03/08/22 07:45 Resp 17 03/08/22 07:45 BP 135/75 03/08/22 07:45 Pulse Ox 98 03/08/22 07:45 O2 Del Method 03/08/22 07:45 O2 Flow Rate 2 03/07/22 06:00 Oxygen Flow Rate 1 03/07/22 00:00 BMI result Body Mass Index 44.7 Appearing in no acute distress lung sounds are clear to auscultation heart regular rate rhythm, clear S1, S2 positive bowel sounds, abdomen is soft, nontender neuro patient is alert x3, no focal deficits Left sided paralysis upper and lower ext Objective Data Active Medications Acetaminophen (Acetaminophen 325 Mg Tablet) 650 mg PO Q6H PRN PRN Reason: Pain, Moderate (Pain Scale 4-6 Last Admin: 03/07/22 04:57 Dose: 650 mg Documented By: GENI Aspirin (Aspirin 81 Mg Tab.Chew) 81 mg PO DAILY [facility] Last Admin: 03/08/22 08:41 Dose: 81 mg Documented By: JARETH Atorvastatin Calcium (Atorvastatin Calcium 80 Mg Tablet) 80 mg PO DAILY [facility] Last Admin: 03/08/22 08:41 Dose: 80 mg Documented By: JARETH Insulin Glargine (Insulin Glargine,Hum.Rec.Anlog 100 Unit/Ml 10 Ml Vial) 20 unit SUBCUT DAILY [facility] Last Admin: 03/08/22 08:39 Dose: 20 unit Documented By: JARETH Insulin Human Lispro (Insulin Lispro 100 Unit/Ml 3 Ml Vial) 0 unit SUBCUT QIDACHS [facility]; Protocol Last Admin: 03/08/22 08:40 Dose: 4 unit Documented By: JARETH Labetalol HCl (Labetalol Hcl 100 Mg/20 Ml Vial) 20 mg IVPUSH Q10M PRN PRN Reason: SBP > 160 Levetiracetam (Levetiracetam 500 Mg Tablet) 500 mg PO DAILY [facility] Last Admin: 03/08/22 08:41 Dose: 500 mg Documented By: JARETH Sodium Chloride (0.9 % Sodium Chloride Flush 3 Ml Syringe) 3 ml IVFLUSH QSHIFT [facility] Last Admin: 03/08/22 08:41 Dose: 3 ml Documented By: JARETH Topiramate (Topiramate 25 Mg Tablet) 50 mg PO DAILY [facility] Last Admin: 03/08/22 08:41 Dose: 50 mg Documented By: JARETH Labs CBC & Chem 7: 03/07/22 05:24 03/07/22 05:25 Labs: Laboratory Results - last 24 hr 03/07/22 03/07/22 03/08/22 15:41 20:12 07:15 POC Glucose 234 H 228 H 230 H Microbiology Microbiology Results: Microbiology 03/06/22 14:24 Blood Culture - Preliminary Blood - Venous No growth after 24 hours. 03/06/22 14:24 Blood Culture - Preliminary Blood - Venous No growth after 24 hours. Assessment and Plan (1) ESRD on hemodialysis: Status: Acute (2) Acute kidney injury superimposed on CKD: Status: Acute Plan This is a 56-year-old female with underlying history of ESRD on HD, prior CVA x2, DM who presented to the ED with left sided facial numbness and left arm/leg weakness who was admitted to the ICU after s/p tpa administration for stroke. overnight requiring vasopressive support, weaned off levophed and downgraded to the medical floor 03/07. History of subdural hematoma. Acute stroke s/p tpa in the ICU has ongoing left side weakness and facial droop Aspirin, statin MRI showing no acute intracranial abnormalities however seen and evaluated by Neurology with diagnosis of clinical stroke Carotid Doppler within acceptable limits Echocardiogram with EF of 65% with no noted PFO PT/OT End-stage renal disease on dialysis Dialysis TTS, this week Tuesday, Tuesday and Tuesday due to holiday Nephrology following DM Lantus SSI, POCs seizure disorder Seizure precautions continue keppra HTN amlodipine previously d/c but on med rec - on hold due to hypotension overnight carvedilol on hold follow bp Chronic anemia H/H at baseline CAREY cpap morbid obesity bmi 44.8 Discussed importance of weight management as this may be contributing to worsening of other comorbidities Attending Dr. Cox DVT prophylaxis with mechanical compression boots Full code Continue hospitalization for treatment of stroke Quality Stroke Does the patient have a stroke diagnosis?: Yes Reason for No Anti-thrombotic by Day Two: N/A - Med Ordered VTE Prior VTE?: No VTE Risk Level:: Medical - moderate - high VTE Device Contraindication: N/A - Device Ordered VTE Drug Contraindication: Treatment Not Indicated
[2022-03-08 15:04] LABS: Glucose, Whole Blood 183 mg/dL (60-115)
--- NOTE | 2022-03-08 15:09 | ECG_ITS ---
Test Reason : hr down to 30 Blood Pressure : / mmHG Vent. Rate : 075 BPM Atrial Rate : 075 BPM P-R Int : 160 ms QRS Dur : 098 ms QT Int : 426 ms P-R-T Axes : 033 -04 045 degrees QTc Int : 475 ms Normal sinus rhythm Moderate voltage criteria for LVH, may be normal variant ( R in aVL , Esdras product ) Borderline ECG When compared with ECG of 06-MAR-2022 13:38, No significant change was found Referred By: Micheline Arciniega Electronically Signed By:XAVI SHERIDAN MD
--- NOTE | 2022-03-08 15:15 | PM.EVENT ---
Event Note Date of Service: 03/09/22 Event Note: 56-year-old woman with clinical stroke, left-sided upper and lower extremity paralysis, facial droop and slow speech. Status post tPA in the ICU. Rapid response called at approximately 1500 to patient's room. Patient had become unresponsive, pale. Once returned to her room post dialysis she became bradycardic with heart rate in the 30s., able to open her eyes during the entire response, no loss of pulse is, remained hemodynamically stable Blood sugar 180's Blood pressure 129/63 Heart rate 70's Oxygen saturation 94% EKG showing normal sinus rhythm CBC, BMP, troponin, ABG pending Patient started coming around able to speak and color returned. Seems more likely vasovagal episode secondary to bradycardia post dialysis. According to the patient's RN this has happened previously after dialysis, it is possible that there needs to be some adjustments in her dialysis treatments will discuss with Nephrology
[2022-03-08 15:29] LABS: Hematocrit 27.6 % (37.0-47.0); Hemoglobin 8.8 g/dl (12.0-16.0); Mean Corpuscular HGB Conc 31.9 g/dl (31.0-35.0); Mean Corpuscular Hemoglobin 28.1 pg (27.0-33.0); Mean Corpuscular Volume 88.2 fL (80.0-98.0); Mean Platelet Volume 9.8 fL (9.4-12.3); Platelet Count 234 X10*3/uL (160-400); Red Blood Count 3.13 X10*6/uL (4.20-5.50); Red Cell Distribution Width 14.3 % (11.0-16.0)
[2022-03-08 15:36] LABS: VBG Base Excess -2.9 mmol/L; VBG HCO3 21 mmol/L (22-26); VBG pCO2 37 mmHg; VBG pH 7.37 (7.32-7.43); VBG pO2 63 mmHg
[2022-03-08 15:37] LABS: Venous Blood Gas Refer to POC result
[2022-03-08 15:57] LABS: Anion Gap 14 (12-20); Blood Urea Nitrogen 25 mg/dL (9-16); Calcium 8.5 mg/dL (8.4-10.2); Carbon Dioxide 22 mmol/L (22-29); Chloride 101 mmol/L (96-108); Creatinine Clr Calc Pharmacy 23.9; Estimated Glomerular Filt Rate 16; Glucose Random 207 mg/dL (60-115); Potassium 3.5 mmol/L (3.3-5.1); Sodium 133 mmol/L (135-145)
[2022-03-08 15:58] LABS: Troponin-I High Sensitivity < 3.5 ng/L (<3.5-17.0)
[2022-03-08 17:15] LABS: Glucose, Whole Blood 168 mg/dL (60-115)
--- NOTE | 2022-03-08 18:07 | PC.NURSE ---
LATE ENTRY Around 1500 this RN noted patients heart rate drop to 30s with a Junctional Rhythm on the monitor while in dialysis. This RN to dialysis to assess and found the patient to be mildly responsive to sternal rub and gonsalves in color. Dialysis stopped. Patient brought to room and rapid response called. BP stable at 129/63, HR up to 70s, Oxygen 94 on RA. EKG showed NSR. Labs drawn, VBGs drawn. Patient became more alert and and responsive. Patient began regaining color. Patient now A&Ox4 and back to baseline. at bedside. Call dean in reach. NSR in the 70s on monitor.
[2022-03-08 19:53] LABS: Glucose, Whole Blood 273 mg/dL (60-115)
[2022-03-08 20:06] LABS: Glucose, Whole Blood 279 mg/dL (60-115)
[2022-03-08] MEDS: Acetaminophen 325 MG TABLET 650 MG PO (20:15)
[2022-03-08] MEDS: diphenhydrAMINE HCL 50 MG/ML VIAL 25 MG IVPUSH (20:16)
[2022-03-09] VITALS (7 sets, daily range): BP systolic 120–146; BP diastolic 58–76; PULSE 74–87; RESP 14–18; TEMP 36.1–37.1; O2SAT 94–98
[2022-03-09] MEDS: 0.9 % Sodium Chloride Flush 3 ML SYRINGE IVFLUSH ×3 (00:25→23:57)
[2022-03-09] MEDS: traMADoL HCL 50 MG TABLET PO (00:44)
[2022-03-09 07:31] LABS: Glucose, Whole Blood 184 mg/dL (60-115)
[2022-03-09] MEDS: diphenhydrAMINE HCL 25 MG CAPSULE PO (07:58)
[2022-03-09 09:30] LABS: Glucose, Whole Blood 248 mg/dL (60-115)
[2022-03-09] MEDS: Topiramate 25 MG TABLET 50 MG PO (09:35)
[2022-03-09] MEDS: Aspirin 81 MG TAB.CHEW PO (09:36)
[2022-03-09] MEDS: Sertraline HCL 25 MG TABLET PO (09:36)
[2022-03-09] MEDS: Atorvastatin Calcium 80 MG TABLET PO (09:36)
[2022-03-09] MEDS: levETIRAcetam 500 MG TABLET PO (09:36)
[2022-03-09] MEDS: Insulin Glargine,Hum.rec.anlog 100 UNIT/ML 10 ML VIAL 20 UNIT SUBCUT (09:36)
[2022-03-09] MEDS: Insulin Lispro 100 UNIT/ML 3 ML VIAL SUBCUT ×4 (09:37→21:32)
--- NOTE | 2022-03-09 10:27 | HO.PM.IMPN ---
Subjective Subjective Date of Service: 03/09/22 Review of Systems Follow up stroke still with left sided weakness. headache, denies chest pain, nausea, vomiting, diarrhea Physical Exam Vital Signs: Vital Signs: Last Vital Signs Temp 97.5 F 03/09/22 07:07 Pulse 74 03/09/22 07:07 Resp 18 03/09/22 07:07 BP 136/65 03/09/22 07:07 Pulse Ox 98 03/09/22 07:07 O2 Del Method 03/09/22 07:07 O2 Flow Rate 2 03/07/22 06:00 Oxygen Flow Rate 4 03/08/22 15:20 BMI result Body Mass Index 44.7 Appearing in no acute distress lung sounds are clear to auscultation heart regular rate rhythm, clear S1, S2 positive bowel sounds, abdomen is soft, nontender neuro patient is alert x3, no focal deficits left-sided upper lower extremity weakness 1/5 upper extremity, 0-5 lower extremity Objective Data Active Medications Acetaminophen (Acetaminophen 325 Mg Tablet) 650 mg PO Q6H PRN PRN Reason: Pain, Moderate (Pain Scale 4-6 Last Admin: 03/08/22 20:15 Dose: 650 mg Documented By: RUTHANN Aspirin (Aspirin 81 Mg Tab.Chew) 81 mg PO DAILY [facility] Last Admin: 03/09/22 09:36 Dose: 81 mg Documented By: RENETTA Atorvastatin Calcium (Atorvastatin Calcium 80 Mg Tablet) 80 mg PO DAILY [facility] Last Admin: 03/09/22 09:36 Dose: 80 mg Documented By: RENETTA Insulin Glargine (Insulin Glargine,Hum.Rec.Anlog 100 Unit/Ml 10 Ml Vial) 20 unit SUBCUT DAILY [facility] Last Admin: 03/09/22 09:36 Dose: 20 unit Documented By: RENETTA Insulin Human Lispro (Insulin Lispro 100 Unit/Ml 3 Ml Vial) 0 unit SUBCUT QIDACHS [facility]; Protocol Last Admin: 03/09/22 09:37 Dose: 4 unit Documented By: RENETTA Labetalol HCl (Labetalol Hcl 100 Mg/20 Ml Vial) 20 mg IVPUSH Q10M PRN PRN Reason: SBP > 160 Levetiracetam (Levetiracetam 500 Mg Tablet) 500 mg PO DAILY [facility] Last Admin: 03/09/22 09:36 Dose: 500 mg Documented By: RENETTA Sertraline HCl (Sertraline Hcl 25 Mg Tablet) 25 mg PO DAILY [facility] Last Admin: 03/09/22 09:36 Dose: 25 mg Documented By: RENETTA Sodium Chloride (0.9 % Sodium Chloride Flush 3 Ml Syringe) 3 ml IVFLUSH QSHIFT [facility] Last Admin: 03/09/22 09:38 Dose: 3 ml Documented By: RENETTA Topiramate (Topiramate 25 Mg Tablet) 50 mg PO DAILY [facility] Last Admin: 03/09/22 09:35 Dose: 50 mg Documented By: RENETTA Labs CBC & Chem 7: 03/08/22 15:22 03/08/22 15:22 Labs: Laboratory Results - last 24 hr 03/08/22 03/08/22 03/08/22 15:00 15:22 15:22 MCV 88.2 MCH 28.1 MCHC 31.9 RDW 14.3 Plt Count 234 MPV 9.8 Absolute Nucleated RBC 0.000 Nucleated RBC % (auto) 0.0 VBG pH VBG pCO2 VBG pO2 VBG HCO3 VBG O2 Saturation VBG Base Excess Anion Gap 14 Estim Creat Clear Calc 23.9 Estimated GFR 16 POC Glucose 183 H Random Glucose 207 H Calcium 8.5 Troponin I High Sens 03/08/22 03/08/22 03/08/22 15:22 15:29 17:04 MCV MCH MCHC RDW Plt Count MPV Absolute Nucleated RBC Nucleated RBC % (auto) VBG pH 7.37 VBG pCO2 37 VBG pO2 63 VBG HCO3 21 L VBG O2 Saturation 90.0 VBG Base Excess -2.9 Anion Gap Estim Creat Clear Calc Estimated GFR POC Glucose 168 H Random Glucose Calcium Troponin I High Sens < 3.5 03/08/22 03/08/22 03/09/22 19:46 20:02 07:10 MCV MCH MCHC RDW Plt Count MPV Absolute Nucleated RBC Nucleated RBC % (auto) VBG pH VBG pCO2 VBG pO2 VBG HCO3 VBG O2 Saturation VBG Base Excess Anion Gap Estim Creat Clear Calc Estimated GFR POC Glucose 273 H 279 H 184 H Random Glucose Calcium Troponin I High Sens 03/09/22 09:26 MCV MCH MCHC RDW Plt Count MPV Absolute Nucleated RBC Nucleated RBC % (auto) VBG pH VBG pCO2 VBG pO2 VBG HCO3 VBG O2 Saturation VBG Base Excess Anion Gap Estim Creat Clear Calc Estimated GFR POC Glucose 248 H Random Glucose Calcium Troponin I High Sens Microbiology Microbiology Results: Microbiology 03/06/22 14:24 Blood Culture - Preliminary Blood - Venous No growth after 48 hours. 03/06/22 14:24 Blood Culture - Preliminary Blood - Venous No growth after 48 hours. Assessment and Plan (1) ESRD on hemodialysis: Status: Acute (2) Acute kidney injury superimposed on CKD: Status: Acute Plan This is a 56-year-old female with underlying history of ESRD on HD, prior CVA x2, DM who presented to the ED with left sided facial numbness and left arm/leg weakness who was admitted to the ICU after s/p tpa administration for stroke. overnight requiring vasopressive support, weaned off levophed and downgraded to the medical floor 03/07. History of subdural hematoma. 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, plan to change dialysis tx will assess after dialysis tomorrow will also discuss with cardiology Acute stroke s/p tpa in the ICU has ongoing left side weakness and facial droop Aspirin, statin MRI showing no acute intracranial abnormalities however seen and evaluated by Neurology with diagnosis of clinical stroke Carotid Doppler within acceptable limits Echocardiogram with EF of 65% with no noted PFO PT/OT End-stage renal disease on dialysis Dialysis TTS, this week Tuesday, Tuesday and Tuesday due to holiday Nephrology following DM Lantus SSI, POCs seizure disorder Seizure precautions continue keppra HTN amlodipine previously d/c but on med rec - on hold due to hypotension overnight carvedilol on hold follow bp Chronic anemia H/H at baseline CAREY cpap morbid obesity bmi 44.8 Discussed importance of weight management as this may be contributing to worsening of other comorbidities Attending Dr. Cox DVT prophylaxis with mechanical compression boots Full code DISPO plan for acute rehab Continue hospitalization for treatment of stroke Quality Stroke Does the patient have a stroke diagnosis?: Yes Reason for No Anti-thrombotic by Day Two: N/A - Med Ordered VTE Prior VTE?: No VTE Risk Level:: Medical - moderate - high VTE Device Contraindication: N/A - Device Ordered VTE Drug Contraindication: Treatment Not Indicated
--- NOTE | 2022-03-09 10:40 | PM.PNNEP ---
Subjective Subjective Date of Service: 03/10/22 Interval history: Events noted Had an episode of unresponsinveness with bradycardia NO Hypotension Physical Exam Vital Signs: Vital Signs: Last Vital Signs Temp 97.5 F 03/09/22 07:07 Pulse 74 03/09/22 07:07 Resp 18 03/09/22 07:07 BP 136/65 03/09/22 07:07 Pulse Ox 98 03/09/22 07:07 O2 Del Method 03/09/22 07:07 O2 Flow Rate 2 03/07/22 06:00 Oxygen Flow Rate 4 03/08/22 15:20 BMI result Body Mass Index 44.7 Const: General: alert Orientation/consciousness: oriented to person Eyes: General: appearance normal, both eyes and all related structures Neck: Neck: Yes supple Cardio: Rate: regular rate Heart sounds: no gallops GI: Palpation (GI): nontender Auscultation: normal bowel sounds Neuro: General: oriented to person Extrem: General: No cyanosis Objective Data Labs CBC & Chem 7: 03/08/22 15:22 03/08/22 15:22 Labs: Laboratory Results - last 24 hr 03/08/22 03/08/22 03/08/22 15:00 15:22 15:22 WBC 7.0 RBC 3.13 L Hgb 8.8 L Hct 27.6 L MCV 88.2 MCH 28.1 MCHC 31.9 RDW 14.3 Plt Count 234 MPV 9.8 Absolute Nucleated RBC 0.000 Nucleated RBC % (auto) 0.0 VBG pH VBG pCO2 VBG pO2 VBG HCO3 VBG O2 Saturation VBG Base Excess Sodium 133 L Potassium 3.5 Chloride 101 Carbon Dioxide 22 Anion Gap 14 BUN 25 H Creatinine 3.09 H Estim Creat Clear Calc 23.9 Estimated GFR 16 POC Glucose 183 H Random Glucose 207 H Calcium 8.5 Troponin I High Sens 03/08/22 03/08/22 03/08/22 15:22 15:29 17:04 WBC RBC Hgb Hct MCV MCH MCHC RDW Plt Count MPV Absolute Nucleated RBC Nucleated RBC % (auto) VBG pH 7.37 VBG pCO2 37 VBG pO2 63 VBG HCO3 21 L VBG O2 Saturation 90.0 VBG Base Excess -2.9 Sodium Potassium Chloride Carbon Dioxide Anion Gap BUN Creatinine Estim Creat Clear Calc Estimated GFR POC Glucose 168 H Random Glucose Calcium Troponin I High Sens < 3.5 03/08/22 03/08/22 03/09/22 19:46 20:02 07:10 WBC RBC Hgb Hct MCV MCH MCHC RDW Plt Count MPV Absolute Nucleated RBC Nucleated RBC % (auto) VBG pH VBG pCO2 VBG pO2 VBG HCO3 VBG O2 Saturation VBG Base Excess Sodium Potassium Chloride Carbon Dioxide Anion Gap BUN Creatinine Estim Creat Clear Calc Estimated GFR POC Glucose 273 H 279 H 184 H Random Glucose Calcium Troponin I High Sens 03/09/22 09:26 WBC RBC Hgb Hct MCV MCH MCHC RDW Plt Count MPV Absolute Nucleated RBC Nucleated RBC % (auto) VBG pH VBG pCO2 VBG pO2 VBG HCO3 VBG O2 Saturation VBG Base Excess Sodium Potassium Chloride Carbon Dioxide Anion Gap BUN Creatinine Estim Creat Clear Calc Estimated GFR POC Glucose 248 H Random Glucose Calcium Troponin I High Sens Microbiology Microbiology Results: Microbiology 03/06/22 14:24 Blood - Venous Blood Culture - Preliminary No growth after 48 hours. 03/06/22 14:24 Blood - Venous Blood Culture - Preliminary No growth after 48 hours. Procedures Date of Service Date of Service: 03/09/22 Assessment & Plan Assessment and plan (1) ESRD on hemodialysis: Status: Acute Plan ESRD No s/s of uremia Bradycardic episode towards end of HD No hypotension CVA MRI findings noted Plan HD again tomorrow Will change dialyzer Continue to avoid hypotension during dialysis Time Spent With Patient Time: Total time spent is greater than 50% in coordination of care (as documented) at patient's floor/unit and/or counseling patient: Progress Note: Quality Stroke Does the patient have a stroke diagnosis?: Yes Reason for No Anti-thrombotic by Day Two: N/A - Med Ordered
[2022-03-09 11:30] LABS: Glucose, Whole Blood 252 mg/dL (60-115)
--- NOTE | 2022-03-09 11:38 | P.CONCA_ITS ---
History of Present Illness History of Present Illness Date of Service: 03/09/22 Chief complaint: CVA, Left sided weakness Narrative: This is a cardiology consultation regarding an unresponsive episode. Patient actually came to the hospital for acute stroke. She received tPA in the ICU but she still has some left-sided weakness and facial droop. She also has ESRD on hemodialysis. She was getting dialysis today and towards end of dialysis session, her heart rate dropped to 30s and she was junctional escape. In that context, she developed unresponsiveness and there was a rapid response called. According documentation, there is no hypotension that time. Hence it was felt that the bradycardia led to the unresponsive episode. Eventually, she was back to normal self. Patient states that she also had another episode few weeks back that apparently happened after dialysis. She was checked out and nothing detected per patient. Otherwise, she denies any history of coronary artery disease, myocardial infarction or cardiomyopathy or in fact any other cardiac issues in the past. No other complaints like angina or shortness of breath. Review of Systems Review of Systems: Yes all other systems are reviewed and are negative Constitutional: Constitutional: Reports as per HPI Eyes: Eyes: Reports as per HPI ENT: Reports as per HPI Cardiovascular: Cardiovascular: Reports as per HPI, Denies acrocyanosis, Denies cool extremities, Denies chest pain, Reports syncope, Denies leg edema, Denies lightheadedness, Denies palpitations and Denies dyspnea Respiratory: Respiratory: Reports as per HPI, Reports no additional respiratory complaints and Denies dyspnea Gastrointestinal: Gastrointestinal: Reports as per HPI and Reports no additional gastrointestinal complaints Genitourinary: Genitourinary: Reports as per HPI Musculoskeletal: Musculoskeletal: Reports no additional musculoskeletal co mplaints and Reports as per HPI Integumentary/Breasts: Skin/Breast: Reports system reviewed and no additional complaints, except as docu Neurologic: Reports system reviewed and no additional complaints, except as documented, Reports as per HPI and Reports syncope Psychiatric: Psychiatric: Reports no additional psychiatric complaints and Reports as per HPI Endocrine: Endocrine: Reports no additional endocrine complaints, Reports as per HPI and Denies palpitations Hematologic/Lymphatic: Hematologic/Lymphatic: Reports no additional hematologic/lymphatic complaints and Reports as per HPI Allergic/Immunologic: Allergic/Immunologic: Reports no additional allergic/immunologic complaints and Reports as per HPI [facility] Past Medical History Medical History (Updated 03/09/22 @ 11:53 by Keron Villarreal MD) Diabetes ESRD on hemodialysis Hyperlipidemia Hypertension Lower back pain Partial deafness Sleep apnea Family History Family History (Updated 03/09/22 @ 11:51 by Keron Villarreal MD) Maternal Grandfather Prostate cancer Maternal Grandmother Stomach cancer Other No family history of coronary artery disease Surgical History Surgical History History of carpal tunnel surgery Previous back surgery Social History Social History Household Members: Significant Other Housing: House Do you presently have visiting nurse or other home services: No Alcohol intake: former Patient Tobacco Use Status: Never used Tobacco Smoked in Last 30 Days: No Patient Interested in Nicotine Replacement: No Patient Given Instructions on How to Stop Smoking: No Second Hand Smoke Exposure: No Use of substances other than those prescribed or required for medical reasons: No Currently Displaying Signs/Symptoms of Drug Intoxication Withdrawal: No Any prior treatment program specific to substance use: No Have you been hit, kicked, punched, or otherwise hurt by someone within the past year? If so, by whom?: No Do you feel safe in your current relationship?: Yes Is there a partner from a previous relationship who is making you feel unsafe now?: No Are you made to feel afraid or neglected: No Faith Healthcare Practices: Alev[employer] Advance Directives: No Do you have thoughts of harming others: None Do you have a plan to hurt others: No Plan Recently lost weight without trying: No How much weight loss: Not applicable Eating poorly because of decreased appetite: No Nutrition screen score: 0 Nutrition Risks: On aspiration precautions Patient : No : No Poor oral hygiene: No service: No Current occupational status: student Meds Allergies Allergy/AdvReac Type Severity Reaction Status Date / Time cortex Eucommiae Allergy Severe ANAPHYLAXIS Verified 02/21/22 14:48 [CORTEX EUCOMMIAE] egg [EGG] Allergy Severe VOMITING Verified 12/23/21 21:10 latex [LATEX] Allergy Severe HIVES Verified 02/21/22 14:48 Penicillins [PENICILLINS] Allergy Severe HIVES Verified 12/23/21 21:10 vancomycin [VANCOMYCIN] Allergy Severe HIVES Verified 02/21/22 14:48 Active Medications: Current Medications Acetaminophen (Acetaminophen 325 Mg Tablet) 650 mg PO Q6H PRN PRN Reason: Pain, Moderate (Pain Scale 4-6 Last Admin: 03/08/22 20:15 Dose: 650 mg Aspirin (Aspirin 81 Mg Tab.Chew) 81 mg PO DAILY [facility] Last Admin: 03/09/22 09:36 Dose: 81 mg Atorvastatin Calcium (Atorvastatin Calcium 80 Mg Tablet) 80 mg PO DAILY [facility] Last Admin: 03/09/22 09:36 Dose: 80 mg Insulin Glargine (Insulin Glargine,Hum.Rec.Anlog 100 Unit/Ml 10 Ml Vial) 20 unit SUBCUT DAILY [facility] Last Admin: 03/09/22 09:36 Dose: 20 unit Insulin Human Lispro (Insulin Lispro 100 Unit/Ml 3 Ml Vial) 0 unit SUBCUT QIDACHS [facility]; Protocol Last Admin: 03/09/22 09:37 Dose: 4 unit Labetalol HCl (Labetalol Hcl 100 Mg/20 Ml Vial) 20 mg IVPUSH Q10M PRN PRN Reason: SBP > 160 Levetiracetam (Levetiracetam 500 Mg Tablet) 500 mg PO DAILY [facility] Last Admin: 03/09/22 09:36 Dose: 500 mg Sertraline HCl (Sertraline Hcl 25 Mg Tablet) 25 mg PO DAILY [facility] Last Admin: 03/09/22 09:36 Dose: 25 mg Sodium Chloride (0.9 % Sodium Chloride Flush 3 Ml Syringe) [facility] Last Admin: 03/09/22 09:38 Dose: 3 ml Topiramate (Topiramate 25 Mg Tablet) 50 mg PO DAILY [facility] Last Admin: 03/09/22 09:35 Dose: 50 mg Home Medications Medication Instructions Recorded Confirmed Last Taken Type aspirin 81 mg chewable tablet 1 tab PO DAILY 12/24/21 03/06/22 03/05/22 History atorvastatin 80 mg tablet 1 tab PO DAILY 12/24/21 03/06/22 03/05/22 History betamethasone dipropionate 0.05 % 1 appl topical BID 12/24/21 03/06/22 03/05/22 History topical ointment calcipotriene 0.005 % topical 1 applic topical BID 12/24/21 03/06/22 03/05/22 History ointment cholecalciferol (vitamin D3) 50 1 cap PO DAILY 0903/06/22 03/05/22 History mcg (2,000 unit) capsule (Vitamin D3) cyanocobalamin (vitamin B-12) 1 tab PO DAILY 12/24/21 03/06/22 03/05/22 History 1,000 mcg tablet (Vitamin B-12) famotidine 20 mg tablet 1 tab PO DAILY 12/24/21 03/06/22 03/05/22 History gabapentin 100 mg capsule 1 cap PO TID 12/24/21 03/06/22 03/05/22 History insulin lispro 100 unit/mL See Protocol subcut TIDAC 12/24/21 03/06/22 03/05/22 History subcutaneous pen lactulose 10 gram/15 mL oral 15 ml PO DAILY PRN Constipation 12/24/21 03/06/22 Unknown History solution loperamide 2 mg capsule 1 cap PO Q6H PRN Diarrhea 12/24/21 03/06/22 12/23/21 08:00 History pantoprazole 40 mg tablet,delayed 1 tab PO DAILY@0630 12/24/21 03/06/22 03/05/22 History release semaglutide 1 mg/dose (2 mg/1.5 1 mg subcut SA@0900 12/24/21 03/06/22 03/05/22 History mL) subcutaneous pen injector (Ozempic) topiramate 25 mg tablet 1 tab PO DAILY 12/24/21 03/06/22 03/05/22 History hydrocortisone 2.5 % topical cream 1 appl topical BID PRN Skin 01/23/22 03/06/22 Unknown History Irritation acetaminophen 500 mg tablet 500 mg PO Q8H PRN Pain 03/06/22 03/06/22 Unknown History amlodipine 10 mg tablet 1 tab PO DAILY 03/06/22 03/06/22 Unknown History carvedilol 25 mg tablet 1 tab PO BID 03/06/22 03/06/22 03/05/22 History clotrimazole 1 % topical cream 1 appl topical DAILY PRN fold 03/06/22 03/06/22 Unknown History insulin glargine 100 unit/mL (3 40 unit subcut DAILY 03/06/22 03/06/22 03/05/22 History mL) subcutaneous pen (Lantus Solostar U-100 Insulin) ondansetron 4 mg disintegrating 1 tab PO Q8H PRN Nausea 03/06/22 03/06/22 Unknown History tablet tizanidine 4 mg tablet 1 tab PO Q8H PRN muscle spasm 03/06/22 03/06/22 Unknown History vitamin B complex and vitamin C 1 cap PO DAILY 03/06/22 03/06/22 03/05/22 History no.20-folic acid 1 mg capsule (Triphrocaps) Physical Exam Vital Signs: Vital Signs: Last Vital Signs Temp 97.9 F 03/09/22 11: Pulse 75 03/09/22 11: Resp 18 03/09/22 11:22 BP 123/60 03/09/22 11:22 Pulse Ox 98 03/09/22 11: O2 Del Method 03/09/22 11:22 O2 Flow Rate 2 03/07/22 06:00 Oxygen Flow Rate 4 03/08/22 15:20 BMI result Body Mass Index 44.7 Const: General: comfortable and no acute distress Orientatio n/consciousness: patient oriented x3 HEENT: Other: Unremarkable Head: Yes normal to inspection Neck: Neck: Yes normal visual inspection Chest: Chest palpation & inspection: normal inspection of the chest Resp: Auscultation: clear to auscultation bilaterally Cardio: Palpation: normal PMI Heart sounds: S1 normal heart sound present, S2 normal heart sound present, no gallops, no murmurs and no rubs GI: Palpation (GI): Soft to palpation Back/Spine/Pelvis: Other: unremarkable Skin: General skin exam: no rashes or lesions noted Neuro: Other: Left-sided weakness. General: patient oriented x3 Extrem: General: Yes normal to inspection Psych: Mental Status: mental status grossly normal Objective Labs and Meds Result diagrams: 03/08/22 15:22 03/08/22 15:22 Lab results: Laboratory Results - last 24 hr 03/08/22 03/08/22 03/08/22 15:00 15:22 15:22 WBC 7.0 RBC 3.13 L Hgb 8.8 L Hct 27.6 L MCV 88.2 MCH 28.1 MCHC 31.9 RDW 14.3 Plt Count 234 MPV 9.8 Absolute Nucleated RBC 0.000 Nucleated RBC % (auto) 0.0 VBG pH VBG pCO2 VBG pO2 VBG HCO3 VBG O2 Saturation VBG Base Excess Sodium 133 L Potassium 3.5 Chloride 101 Carbon Dioxide 22 Anion Gap 14 BUN 25 H Creatinine 3.09 H Estim Creat Clear Calc 23.9 Estimated GFR 16 POC Glucose 183 H Random Glucose 207 H Calcium 8.5 Troponin I High Sens 03/08/22 03/08/22 03/08/22 15:22 15:29 17:04 WBC RBC Hgb Hct MCV MCH MCHC RDW Plt Count MPV Absolute Nucleated RBC Nucleated RBC % (auto) VBG pH 7.37 VBG pCO2 37 VBG pO2 63 VBG HCO3 21 L VBG O2 Saturation 90.0 VBG Base Excess -2.9 Sodium Potassium Chloride Carbon Dioxide Anion Gap BUN Creatinine Estim Creat Clear Calc Estimated GFR POC Glucose 168 H Random Glucose Calcium Troponin I High Sens < 3.5 03/08/22 03/08/22 03/09/22 19:46 20:02 07:10 WBC RBC Hgb Hct MCV MCH MCHC RDW Plt Count MPV Absolute Nucleated RBC Nucleated RBC % (auto) VBG pH VBG pCO2 VBG pO2 VBG HCO3 VBG O2 Saturation VBG Base Excess Sodium Potassium Chloride Carbon Dioxide Anion Gap BUN Creatinine Estim Creat Clear Calc Estimated GFR POC Glucose 273 H 279 H 184 H Random Glucose Calcium Troponin I High Sens 03/09/22 03/09/22 09:26 11:24 WBC RBC Hgb Hct MCV MCH MCHC RDW Plt Count MPV Absolute Nucleated RBC Nucleated RBC % (auto) VBG pH VBG pCO2 VBG pO2 VBG HCO3 VBG O2 Saturation VBG Base Excess Sodium Potassium Chloride Carbon Dioxide Anion Gap BUN Creatinine Estim Creat Clear Calc Estimated GFR POC Glucose 248 H 252 H Random Glucose Calcium Troponin I High Sens ECG Interpretation: EKG shows sinus rhythm at 75/Min; old is ready for LVH; normal GA/QT Imaging Radiologist's impression: Impressions Carotid Doppler Study 03/08/22 11:34 IMPRESSION: 1. RIGHT: 0-49% range stenosis right carotid artery. 2. LEFT: No hemodynamically significant stenosis. 3. Elevated bilateral subclavian artery peak systolic velocity suggestive off mild stenosis or tortuosity. Brain MRI 03/08/22 12:17 IMPRESSION: - No acute intracranial findings. No acute infarcts identified accounting for artifact. - There is moderate chronic microangiopathy. Assessment and Plan (1) Junctional bradycardia: Status: Acute (2) Stroke: Status: Acute (3) ESRD on hemodialysis: Status: Acute Plan Baseline EKG is unremarkable. During the episode, she had about 3-4 minutes of junctional escape rhythm in the 30s. Then went back to normal sinus rhythm. Echocardiogram with LVEF of 65% and no evidence of intracardiac shunting or other abnormalities. At home, it seems that she was on carvedilol, but not given here. She had received some labetalol on the . At this time, will need to see if any adjustments can be made with dialysis to avoid these episodes. If they still recurrent, then possible pacemaker but with hemodialysis there is also a chance of infection. Hence would like to avoid as much possible. Will follow up with you. Procedures Date of Service Date of Service: 03/09/22
--- NOTE | 2022-03-09 14:06 | MHC.CM.PN ---
Per PATIENT AMBASSADOR/Micheline, If Patient does well and remains medically stable after HD tomorrow, Patient is likely to be ready for dc tomorrow. Patient has been accepted at [facility]/private room and [facility] has already obtained [facility] authorization. CM has alerted Patient and her /Demetrius at [phone] of anticipated dc and they are in agreement.CM will follow.
--- NOTE | 2022-03-09 15:36 | MHC.CM.PN ---
CM met with Patient and her at bedside to answer additional questions regarding anticipated dc to [facility] tomorrow. CM will follow.
[2022-03-09 16:02] LABS: Glucose, Whole Blood 248 mg/dL (60-115)
--- NOTE | 2022-03-09 17:16 | ECG_ITS ---
Test Reason : cp Blood Pressure : / mmHG Vent. Rate : 084 BPM Atrial Rate : 084 BPM P-R Int : 152 ms QRS Dur : 094 ms QT Int : 410 ms P-R-T Axes : 044 001 043 degrees QTc Int : 484 ms Normal sinus rhythm Moderate voltage criteria for LVH, may be normal variant ( R in aVL , [place] product ) Prolonged QT Abnormal ECG When compared with ECG of 08-MAR-2022 15:25, No significant change was found Referred By: Micheline Arciniega Electronically Signed By:XAVI SHERIDAN MD
--- NOTE | 2022-03-09 18:29 | PC.NURSE ---
at 16:55 pt reported 8/10 chest pain. The health care provider was notified and a stat ekg was ordered. The results were sent to the HCP for interpretation. Patient ordered to continue with PRN tylenol for pain management. Will continue to monitor.
[2022-03-09] MEDS: diphenhydrAMINE HCL 50 MG/ML VIAL 25 MG IVPUSH (19:42)
[2022-03-09 20:07] LABS: Glucose, Whole Blood 239 mg/dL (60-115)
[2022-03-10 03:54] VITALS: BP 130/60; PULSE 86; RESP 16; TEMP 36.6; O2SAT 98
[2022-03-10 07:19] VITALS: BP 135/63; PULSE 81; RESP 20; TEMP 36.3; O2SAT 97
[2022-03-10 08:01] LABS: Glucose, Whole Blood 208 mg/dL (60-115)
[2022-03-10] MEDS: 0.9 % Sodium Chloride Flush 3 ML SYRINGE IVFLUSH ×2 (08:09→16:35)
[2022-03-10] MEDS: Insulin Lispro 100 UNIT/ML 3 ML VIAL SUBCUT ×3 (08:09→20:19)
[2022-03-10] MEDS: Atorvastatin Calcium 80 MG TABLET PO (08:09)
[2022-03-10] MEDS: Topiramate 25 MG TABLET 50 MG PO (08:09)
[2022-03-10] MEDS: Aspirin 81 MG TAB.CHEW PO (08:09)
[2022-03-10] MEDS: levETIRAcetam 500 MG TABLET PO (08:09)
[2022-03-10] MEDS: Sertraline HCL 25 MG TABLET PO (08:09)
[2022-03-10] MEDS: Insulin Glargine,Hum.rec.anlog 100 UNIT/ML 10 ML VIAL 20 UNIT SUBCUT (08:10)
--- NOTE | 2022-03-10 10:45 | PM.PNCARD ---
Subjective Subjective Date of Service: 03/10/22 Interval history: She states that she feels fine. No new cardiac symptoms. Review of Systems Review of Systems Yes all other systems are reviewed and are negative Constitutional: Reports as per HPI Eyes: Reports as per HPI Reports as per HPI Cardiovascular: Reports as per HPI, Denies acrocyanosis, Denies cool extremities, Denies chest pain, Denies leg edema, Denies lightheadedness, Denies palpitations and Denies dyspnea Respiratory: Reports as per HPI, Reports no additional respiratory complaints and Denies dyspnea Gastrointestinal: Reports as per HPI and Reports no additional gastrointestinal complaints Genitourinary: Reports as per HPI Musculoskeletal: Reports no additional musculoskeletal complaints and Reports as per HPI Skin/Breast: Reports system reviewed and no additional complaints, except as docu Reports system reviewed and no additional complaints, except as documented and Reports as per HPI Psychiatric: Reports no additional psychiatric complaints and Reports as per HPI Endocrine: Reports no additional endocrine complaints, Reports as per HPI and Denies palpitations Hematologic/Lymphatic: Reports no additional hematologic/lymphatic complaints and Reports as per HPI Allergic/Immunologic: Reports no additional allergic/immunologic complaints and Reports as per HPI Physical Exam Vital Signs: Last Vital Signs Temp 97.3 F 03/10/22 07:19 Pulse 81 03/10/22 07:19 Resp 20 03/10/22 07:19 BP 135/63 03/10/22 07:19 Pulse Ox 97 03/10/22 07:19 O2 Del Method 03/10/22 07:19 O2 Flow Rate 2 03/07/22 06:00 Oxygen Flow Rate 4 03/08/22 15:20 BMI result Body Mass Index 44.7 Const General: comfortable and no acute distress Orientation/consciousness: patient oriented x3 HEENT Other: Unremarkable Head: Yes normal to inspection Neck Neck: Yes normal visual inspection Chest Chest palpation & inspection: normal inspection of the chest Resp Auscultation: clear to auscultation bilaterally Cardio Palpation: normal PMI Heart sounds: S1 normal heart sound present, S2 normal heart sound present, no gallops, no murmurs and no rubs GI Palpation (GI): Soft to palpation Back/Spine/Pelvis Other: unremarkable Skin General skin exam: no rashes or lesions noted Neuro General: patient oriented x3 Extrem General: Yes normal to inspection Psych Mental Status: mental status grossly normal Objective Labs and Meds Result diagrams: 03/08/22 15:22 11/21/22 15:22 Lab results: Laboratory Results - last 24 hr 03/09/22 03/09/22 03/09/22 11:24 15:55 20:00 POC Glucose 252 H 248 H 239 H 03/10/22 07:22 POC Glucose 208 H Progress Note: A&P Assessment and plan (1) Junctional bradycardia: Status: Acute (2) Stroke: Status: Acute (3) ESRD on hemodialysis: Status: Acute Plan Baseline EKG is unremarkable. During the episode, she had about 3-4 minutes of junctional escape rhythm in the 30s. Then went back to normal sinus rhythm. Echocardiogram with LVEF of 65% and no evidence of intracardiac shunting or other abnormalities. Outside records from [facility] also reviewed. Cardiac catheterization from 2020 shows mild luminal irregularities only and nothing hemodynamically significant. It seems that changes are being made with the dialysis itself. If the bradycardia issues continue to be recurrent in spite of this, then may need permanent pacemaker. Per patient, she goes to [facility] and she can follow up with them for further care. Discussed with Dr. Dean. Time Spent With Patient Time: Total time spent is greater than 50% in coordination of care (as documented) at patient's floor/unit and/or counseling patient: 32min. Progress Note: Quality Stroke Does the patient have a stroke diagnosis?: Yes Reason for No Anti-thrombotic by Day Two: N/A - Med Ordered Procedures Date of Service Date of Service: 03/10/22
--- NOTE | 2022-03-10 11:56 | W.PM.DNNEP ---
Subjective Subjective This patient was seen during dialysis. Interval history: Events noted Had an episode of unresponsinveness with bradycardia during HD on 03/08 NO Hypotension On a different dialyzer today Physical Exam Vital Signs: Vital Signs: Last Vital Signs Temp 97.3 F 03/10/22 07:19 Pulse 81 03/10/22 07:19 Resp 20 03/10/22 07:19 BP 135/63 03/10/22 07:19 Pulse Ox 97 03/10/22 07:19 O2 Del Method 03/10/22 07:19 O2 Flow Rate 2 03/07/22 06:00 Oxygen Flow Rate 4 03/08/22 15:20 BMI result Body Mass Index 44.7 Const: General: alert Orientation/consciousness: oriented to person Eyes: General: appearance normal, both eyes and all related structures Neck: Neck: Yes supple Cardio: Rate: regular rate Heart sounds: no gallops GI: Palpation (GI): nontender Auscultation: normal bowel sounds Neuro: General: oriented to person Extrem: General: No cyanosis Assessment & Plan Assessment and plan (1) ESRD on hemodialysis: Status: Acute Plan ESRD No s/s of uremia Bradycardic episode towards end of HD No hypotension CVA MRI findings noted Plan HD today with a different dialyzer Continue to avoid hypotension during dialysis Time Spent With Patient Time: Total time spent is greater than 50% in coordination of care (as documented) at patient's floor/unit and/or counseling patient: Procedures Date of Service Date of Service: 03/10/22
[2022-03-10 13:18] LABS: Glucose, Whole Blood 149 mg/dL (60-115)
[2022-03-10 13:19] VITALS: BP 134/88; PULSE 85; RESP 20; TEMP 36.3; O2SAT 99
[2022-03-10] MEDS: diphenhydrAMINE HCL 50 MG/ML VIAL 25 MG IVPUSH ×2 (13:24→20:22)
--- NOTE | 2022-03-10 14:31 | P.CDIC_ITS ---
CDI Concurrent Query Documentation Clarification: PHYSICIAN'S DOCUMENTATION REQUEST Date of Query: 03/10/22 1431 Patient Name: Tanisha West Admit Date: 03/06/22 Dear Doctor, A review of the medical record indicates additional documentation may be needed. Please review below and update the documentation accordingly. Clinical Indicators: Is there a diagnosis that correlates with the findings below: Risk Factors/Clinical Indicators/Treatments -Patient with PMH of DM Labs: -POC on 03/08: 279 -POC on 03/09: 252 Home medications: -semaglutide 1mg subq -insulin lispro tid -insulin glargine 40units subq Please clarify the following regarding Diabetes Mellitus (DM): * Hyperglycemia * No complications of DM * Other complication ? please specify * Unable to determine Use of terms such as suspected, likely, concern for, or probable (associated with a specific diagnosis that is being evaluated, monitored, or treated as if it exists) are acceptable and can be coded in the inpatient setting, when documented at the time of discharge. Thank you, Tameka Werner MS, RN, CCRN Extension: [phone] Please use your independent medical judgment in providing your response. THIS QUERY IS PART OF THE PERMANENT MEDICAL RECORD
--- NOTE | 2022-03-10 14:40 | MHC.CM.PN ---
Per MD, Patient is Lethargic and not feeling well after HD. CM has informed [facility] that Patient is not ready for dc today.[facility] authorization is good until 03/11/2022 11AM.CM will follow.
[2022-03-10 15:07] VITALS: BP 127/64; PULSE 91; RESP 18; TEMP 36.6; O2SAT 96
[2022-03-10 16:11] LABS: Glucose, Whole Blood 188 mg/dL (60-115)
--- NOTE | 2022-03-10 16:22 | HO.PM.IMPN ---
Subjective Subjective Date of Service: 03/10/22 Interval History: Follow up stroke Review of Systems still with left sided weakness. feels very weak and lethargic post dialysis- slowly improving later in afternoon currently refusing to go Physical Exam Vital Signs: Vital Signs: Last Vital Signs Temp 97.8 F 03/10/22 15:07 Pulse 91 03/10/22 15:07 Resp 18 03/10/22 15:07 BP 127/64 03/10/22 15:07 Pulse Ox 96 03/10/22 15:07 O2 Del Method 03/10/22 15:07 O2 Flow Rate 2 03/07/22 06:00 Oxygen Flow Rate 4 03/08/22 15:20 BMI result Body Mass Index 44.7 Appearing in no acute distress ?lung sounds are clear to auscultation ?heart regular rate rhythm, clear? S1, S2 ?positive bowel sounds, abdomen is soft, nontender ?neuro patient is alert x3, no focal deficits ?left-sided upper lower extremity weakness 1/5 upper extremity, 0-5 lower extremity Objective Data Active Medications Acetaminophen (Acetaminophen 325 Mg Tablet) 650 mg PO Q6H PRN PRN Reason: Pain, Moderate (Pain Scale 4-6 Last Admin: 03/08/22 20:15 Dose: 650 mg Documented By: RUTHANN Aspirin (Aspirin 81 Mg Tab.Chew) 81 mg PO DAILY [facility] Last Admin: 03/10/22 08:09 Dose: 81 mg Documented By: ENMA Atorvastatin Calcium (Atorvastatin Calcium 80 Mg Tablet) 80 mg PO DAILY [facility] Last Admin: 03/10/22 08:09 Dose: 80 mg Documented By: ENMA Diphenhydramine HCl (Diphenhydramine Hcl 50 Mg/Ml Vial) 25 mg IVPUSH Q4H PRN PRN Reason: Itching Last Admin: 03/10/22 13:24 Dose: 25 mg Documented By: ENMA Insulin Glargine (Insulin Glargine,Hum.Rec.Anlog 100 Unit/Ml 10 Ml Vial) 20 unit SUBCUT DAILY [facility] Last Admin: 03/10/22 08:10 Dose: 20 unit Documented By: ENMA Insulin Human Lispro (Insulin Lispro 100 Unit/Ml 3 Ml Vial) 0 unit SUBCUT QIDACHS [facility]; Protocol Last Admin: 03/10/22 13:28 Dose: Not Given Documented By: ENMA Non-Admin Reason: No Insulin Coverage Labetalol HCl (Labetalol Hcl 100 Mg/20 Ml Vial) 20 mg IVPUSH Q10M PRN PRN Reason: SBP > 160 Levetiracetam (Levetiracetam 500 Mg Tablet) 500 mg PO DAILY [facility] Last Admin: 03/10/22 08:09 Dose: 500 mg Documented By: ENMA Sertraline HCl (Sertraline Hcl 25 Mg Tablet) 25 mg PO DAILY [facility] Last Admin: 03/10/22 08:09 Dose: 25 mg Documented By: ENMA Sodium Chloride (0.9 % Sodium Chloride Flush 3 Ml Syringe) 3 ml IVFLUSH QSHIFT [facility] Last Admin: 03/10/22 08:09 Dose: 3 ml Documented By: ENMA Topiramate (Topiramate 25 Mg Tablet) 50 mg PO DAILY [facility] Last Admin: 03/10/22 08:09 Dose: 50 mg Documented By: ENMA Labs CBC & Chem 7: 03/08/22 15:22 03/08/22 15:22 Labs: Laboratory Results - last 24 hr 03/09/22 03/10/22 03/10/22 20:00 07:22 13:15 POC Glucose 239 H 208 H 149 H 03/10/22 16:04 POC Glucose 188 H Assessment and Plan (1) Junctional bradycardia: Status: Acute (2) ESRD on hemodialysis: Status: Acute Plan 56-year-old female with underlying history of ESRD on HD, prior CVA x2, DM who presented to the ED with left sided facial numbness and left arm/leg weakness who was admitted to the ICU after s/p tpa administration for stroke. overnight requiring vasopressive support, weaned off levophed and downgraded to the medical floor 03/07.? History of subdural hematoma. Junctional bradycardia towards the end of dialysis 03/08/22, heart rate in the 30s, patient became unresponsive able to open her eyes but unable to verbally respond, rapid response was called Patient never became hypotensive, blood sugars within acceptable range, EKG after bradycardia showing normal sinus rhythm, negative troponin, stable CBC and BMP No further episodes, seems to have been during/after dialysis, discussed with veneer puller, plan to change dialysis tx will assess after dialysis tomorrow d/w with cardiology-hold coreg , fu with her cardiology outpatient ( please see cardiology note for detailed info) Acute stroke s/p tpa in the ICU has ongoing left side weakness and facial droop Aspirin, statin MRI showing no acute intracranial abnormalities however seen and evaluated by Neurology with diagnosis of clinical stroke Carotid Doppler within acceptable limits Echocardiogram with EF of 65% with no noted PFO PT/OT End-stage renal disease on dialysis Dialysis TTS, this week Tuesday, Tuesday and Tuesday due to holiday Nephrology following DM Lantus SSI, POCs seizure disorder Seizure precautions continue keppra HTN amlodipine previously d/c but on med rec - on hold due to hypotension overnight carvedilol on hold follow bp Chronic anemia H/H at baseline CAREY cpap morbid obesity bmi 44.8 Discussed importance of weight management as this may be contributing to worsening of other comorbidities Attending Dr. Cox DVT prophylaxis with mechanical compression boots Full code DISPO plan for acute rehab ongoning hospitilisation-? generalized weakness/ lethargic post dialysis,.Continue hospitalization for treatment of stroke Quality Stroke Does the patient have a stroke diagnosis?: Yes Reason for No Anti-thrombotic by Day Two: N/A - Med Ordered VTE Prior VTE?: No VTE Risk Level:: Medical - moderate - high VTE Device Contraindication: N/A - Device Ordered VTE Drug Contraindication: Treatment Not Indicated
[2022-03-10 19:01] VITALS: BP 143/64; PULSE 88; RESP 18; TEMP 36.1; O2SAT 96
[2022-03-10 19:44] LABS: Glucose, Whole Blood 183 mg/dL (60-115)
[2022-03-11] VITALS: BP 138/69; PULSE 86; RESP 20; TEMP 36; O2SAT 96
[2022-03-11 04:00] VITALS: BP 119/78; PULSE 88; RESP 20; TEMP 36.4; O2SAT 98
[2022-03-11 07:21] LABS: Glucose, Whole Blood 182 mg/dL (60-115)
[2022-03-11 07:30] VITALS: BP 132/61; PULSE 80; RESP 20; TEMP 36.8; O2SAT 97
[2022-03-11] MEDS: Sertraline HCL 25 MG TABLET PO (07:59)
[2022-03-11] MEDS: Topiramate 25 MG TABLET 50 MG PO (07:59)
[2022-03-11] MEDS: Insulin Glargine,Hum.rec.anlog 100 UNIT/ML 10 ML VIAL 20 UNIT SUBCUT (07:59)
[2022-03-11] MEDS: Aspirin 81 MG TAB.CHEW PO (07:59)
[2022-03-11] MEDS: Atorvastatin Calcium 80 MG TABLET PO (07:59)
[2022-03-11] MEDS: levETIRAcetam 500 MG TABLET PO (07:59)
[2022-03-11] MEDS: Insulin Lispro 100 UNIT/ML 3 ML VIAL SUBCUT ×2 (08:00→11:51)
[2022-03-11] MEDS: 0.9 % Sodium Chloride Flush 3 ML SYRINGE IVFLUSH (08:00)
--- NOTE | 2022-03-11 08:12 | PM.PNNEP ---
Subjective Subjective Date of Service: 03/11/22 Interval history: Follow up stroke Physical Exam Vital Signs: Vital Signs: Last Vital Signs Temp 98.3 F 03/11/22 07:30 Pulse 80 03/11/22 07:30 Resp 20 03/11/22 07:30 BP 132/61 03/11/22 07:30 Pulse Ox 97 03/11/22 07:30 O2 Del Method 03/11/22 07:30 O2 Flow Rate 2 03/07/22 06:00 Oxygen Flow Rate 4 03/08/22 15:20 BMI result Body Mass Index 44.7 Const: Other: Somnolent but does answer questions with slow response time, her lying which is comprehensible General: comfortable, no acute distress, alert and awake Nutritional Appearance: obese Orientation/consciousness: oriented to person, patient oriented x3 and Other orientation findings ( oriented) HEENT: Other: Unremarkable Head: Yes normal to inspection, Yes normocephalic and Yes atraumatic Ears: external ears normal General nose exam: Normal external nose present Face and sinus: Yes normal facial exam Mouth: Normal oral and palatal mucosa present and no other ( thrush) Throat: Yes posterior oropharynx normal and No postnasal drainage Eyes: General: appearance normal, both eyes and all related structures Sclerae: sclerae normal Pupils: Equal, round and reactive pupils present EOM: EOMs intact bilaterally Neck: Neck: Yes normal visual inspection, Yes no lymphadenopathy, Yes trachea midline and Yes supple Lymphatic: no lymphadenopathy noted Chest: Chest palpation & inspection: normal inspection of the chest and normal palpation of entire chest wall Resp: Effort & Inspection: normal respiratory effort, able to speak in complete sentences, no respiratory distress and no use of accessory muscles Auscultation: clear to auscultation bilaterally Cardio: Palpation: normal PMI Rate: regular rate Rhythm: regular rhythm Heart sounds: S1 normal heart sound present, S2 normal heart sound present, no gallops, no murmurs and no rubs GI: Inspection: Yes normal to inspection Palpation (GI): Soft to palpation, nontender, no guarding and Other GI palpation findings present ( Nontender) Auscultation: normal bowel sounds : General: Yes no CVA tenderness Back/Spine/Pelvis: Other: unremarkable Back: no CVA tenderness Skin: General skin exam: no rashes or lesions noted and other ( warm) Rashes: no rashes Neuro: Other: Left-sided weakness. General: oriented to person, patient oriented x3 and CN's II-XI intact bilaterally Cranial nerves: Yes CN's II-XII intact bilaterally and Yes Equal, round and reactive pupils present Speech: Abnormal speech present and Other speech findings present (Neuro) (some slurring) Motor exam (neuro): Other motor observations present (Unable to move left let, left arm strength 3/5) Doll's-Eye Reflex: Present Extrem: General: Yes normal to inspection, No clubbing, No cyanosis and Yes edema (Trace bilateral) Psych: Mental Status: mental status grossly normal Objective Data Labs CBC & Chem 7: 03/08/22 15:22 03/08/22 15:22 Labs: Laboratory Results - last 24 hr 03/10/22 03/10/22 03/10/22 13:15 16:04 19:39 POC Glucose 149 H 188 H 183 H 03/11/22 07:14 POC Glucose 182 H Microbiology Microbiology Results: Microbiology 03/06/22 14:24 Blood - Venous Blood Culture - Preliminary No growth after 48 hours. 03/06/22 14:24 Blood - Venous Blood Culture - Preliminary No growth after 48 hours. Procedures Date of Service Date of Service: 03/11/22 Assessment & Plan Assessment and plan (1) Junctional bradycardia: Status: Acute (2) ESRD on hemodialysis: Status: Acute Plan 56-year-old female with underlying history of ESRD on HD, prior CVA x2, DM who presented to the ED with left sided facial numbness and left arm/leg weakness who was admitted to the ICU after s/p tpa administration for stroke. overnight requiring vasopressive support, weaned off levophed and downgraded to the medical floor 03/07.? History of subdural hematoma. Junctional bradycardia towards the end of dialysis 03/08/22, heart rate in the 30s, patient became unresponsive able to open her eyes but unable to verbally respond, rapid response was called Patient never became hypotensive, blood sugars within acceptable range, EKG after bradycardia showing normal sinus rhythm, negative troponin, stable CBC and BMP No further episodes, seems to have been during/after dialysis, discussed with business intelligence administrator, plan to change dialysis tx will assess after dialysis tomorrow d/w with cardiology-hold jil marrero with her cardiology outpatient ( please see cardiology note for detailed info) Acute stroke s/p tpa in the ICU has ongoing left side weakness and facial droop Aspirin, statin MRI showing no acute intracranial abnormalities however seen and evaluated by Neurology with diagnosis of clinical stroke Carotid Doppler within acceptable limits Echocardiogram with EF of 65% with no noted PFO PT/OT End-stage renal disease on dialysis Dialysis TTS, this week Tuesday, Tuesday and Tuesday due to holiday next dialysis tuesday Progress Note: Quality Stroke Does the patient have a stroke diagnosis?: Yes Reason for No Anti-thrombotic by Day Two: N/A - Med Ordered
--- NOTE | 2022-03-11 09:25 | MHC.CM.PN ---
Per ITINERANT TEACHER ASSISTANT/Micheline, Patient will be medically cleared for dc to Acute Rehab today. Patient will dc to [facility] to a private room today at 1PM, via [facility]. CM has left a detailed message for Patient's /[email or web address]@ [phone], informing him of the dc plan and CM met at bedside to do the same, with Patient. Patient is aware of and in agreement with the dc plan.
[2022-03-11] MEDS: Acetaminophen 325 MG TABLET 650 MG PO (10:20)
[2022-03-11 10:40] LABS: IDNOW Serial# BCCEAD1C
[2022-03-11 10:41] LABS: COVID-19 Test Negative (Negative)
[2022-03-11 11:16] LABS: Glucose, Whole Blood 268 mg/dL (60-115)
[2022-03-11 11:25] VITALS: BP 133/72; PULSE 83; RESP 18; TEMP 36.3; O2SAT 98
--- NOTE | 2022-03-11 11:35 | PM.DS ---
DS: Providers Provider Date of Service: 03/11/22 Date of admission: 03/06/22 14:57 Primary care physician: Delfina Butler MD Consults: 03/06/22 14:57 Consult to Neurology Routine Consulting Provider: Klaus Samuel Reason for consultation: CVA s/p tPA Has provider been notified: Yes 03/07/22 13:19 Consult to Nephrology Routine Consulting Provider: Jennifer Gamez Reason for consultation: ESRD on HD Has provider been notified: No 03/09/22 10:25 Consult to Cardiology Routine Consulting Provider: Keron Villarreal Reason for consultation: junctional bradycardia Has provider been notified: No Attending physician on discharge: [facility] Discharging clinician: Micheline Arciniega DS: Diagnosis Discharge Diagnosis (1) Junctional bradycardia: Status: Acute (2) ESRD on hemodialysis: Status: Acute DS: Summary Hospital Course Hospital Course: HP as per admitting provider 56-year-old lady with underlying history of ESRD on HD, prior CVA x2, DM admitted when after HD session with left sided facial numbness and left arm/leg weakness. On ER evaluation was deemed to be a candidate for tPA after consultation with the neurologist and tPA was adminestered. patient was admitted to ICU for close monitoring.? After administration of tPA she complained 10 of [address] head was obtained that showed no evidence of intracranial hemorrhage . Junctional bradycardia towards the end of dialysis 03/08/22, heart rate in the 30s, patient became unresponsive able to open her eyes but unable to verbally respond, rapid response was called Patient never became hypotensive, blood sugars within acceptable range, EKG after bradycardia showing normal sinus rhythm, negative troponin, stable CBC and BMP No further episodes, seems to have been during/after dialysis, discussed with [employer], plan to change dialysis tx d/w with cardiology-stop coreg, fu with her cardiology outpatient Acute stroke s/p tpa in the ICU has ongoing left side weakness and facial droop, improving Aspirin, statin MRI showing no acute intracranial abnormalities however seen and evaluated by Neurology with diagnosis of clinical stroke Carotid Doppler within acceptable limits Echocardiogram with EF of 65% with no noted PFO will require further PT o/p End-stage renal disease on dialysis Dialysis TTS, this week Tuesday, Tuesday and Tuesday due to holiday Nephrology following DM home medications seizure disorder Seizure precautions continue keppra HTN amlodipine previously d/c but on med rec - on hold due to hypotension overnight carvedilol on hold follow bp Chronic anemia H/H at baseline CAREY cpap morbid obesity bmi 44.8 Discussed importance of weight management as this may be contributing to worsening of other comorbidities Time Spent with Patient Time attestation: Total time spent providing and/or coordinating discharge services: Discharge coordination time: Greater than 30 minutes Quality: Safe Use of Opioids Does Pt have an Active Cancer Diagnosis on the Problem List?: No Quality: Stroke Does the patient have a stroke diagnosis?: No Physical Exam Vital Signs: Vital Signs: Last Vital Signs Temp 97.4 F 03/11/22 11:25 Pulse 83 03/11/22 11:25 Resp 18 03/11/22 11:25 BP 133/72 03/11/22 11:25 Pulse Ox 98 03/11/22 11:25 O2 Del Method 03/11/22 11:25 O2 Flow Rate 2 03/07/22 06:00 Oxygen Flow Rate 4 03/08/22 15:20 BMI result Body Mass Index 44.7 Appearing in no acute distress head is normocephalic atraumatic eyes pupils are PERRLA sclera is anicteric mouth throat mucous membranes are intact and moist neck is supple no lymphadenopathy, no JVD noted lung sounds are clear to auscultation heart regular rate rhythm, clear S1, S2 positive bowel sounds, abdomen is soft, nontender neuro Left upper and lower ext weakness DS: Data Data Completed and Pending Completed studies during hospitalization [Text1]: Procedures Assistance with Respiratory Ventilation, Less than 24 Consecutive Hours, Continuous Positive Airway Pressure (12/24/21) Excision of Left Kidney, Percutaneous Approach, Diagnostic (12/24/21) Fluoroscopy of Superior Vena Cava, Guidance (01/23/22) Insertion of Infusion Device into Superior Vena Cava, Percutaneous Approach (01/23/22) Performance of Urinary Filtration, Intermittent, Less than 6 Hours Per Day (01/23/22) Transfusion of Nonautologous Red Blood Cells into Peripheral Vein, Percutaneous Approach (01/23/22) Ultrasonography of Superior Vena Cava, Guidance (01/23/22) Labs on day of discharge: Laboratory Results - last 24 hr 03/10/22 03/10/22 03/10/22 13:15 16:04 19:39 POC Glucose 149 H 188 H 183 H COVID-19 (JODY) COVID-19 Clin Com 03/11/22 03/11/22 03/11/22 07:14 10:11 11:10 POC Glucose 182 H 268 H COVID-19 (JODY) Negative COVID-19 Clin Com See Note Preliminary micro results at discharge 03/06/22 14:24 Blood Culture - Preliminary Blood - Venous No growth after 48 hours. 03/06/22 14:24 Blood Culture - Preliminary Blood - Venous No growth after 48 hours. Discharge Plan Discharge Anticipated Discharge Date/Time: 03/11/22 11:29 Patient Disposition: Xfer Inpatient Rehab Fac Discharge Diagnosis: Stroke Referrals: [facility] [Outside] - 1 Week Delfina Butler MD [Primary Care Provider] - 1 Week Discharge Medications: Continued atorvastatin 80 mg tablet 1 tab PO DAILY loperamide 2 mg capsule 1 cap PO Q6H PRN (Reason: Diarrhea) cyanocobalamin (vitamin B-12) [Vitamin B-12] 1,000 mcg tablet 1 tab PO DAILY topiramate 25 mg tablet 1 tab PO DAILY famotidine 20 mg tablet 1 tab PO DAILY pantoprazole 40 mg tablet,delayed release (DR/EC) 1 tab PO DAILY@0630 aspirin 81 mg tablet,chewable 1 tab PO DAILY gabapentin 100 mg capsule 1 cap PO TID insulin lispro 100 unit/mL insulin pen See Protocol subcut TIDAC Protocol: Insulin Correction Scale Less than or equal to 110 ---- Give (units): 0 111 to 150 Give (units): 0 151 to 200 Give (units): 2 201 to 250 Give (units): 4 251 to 300 Give (units): 6 301 to 350 Give (units): 8 Greater than 350 Give (units): 10 Call if Blood Glucose > : 350 Rx Instructions: sliding scale lactulose 10 gram/15 mL solution 15 ml PO DAILY PRN (Reason: Constipation) cholecalciferol (vitamin D3) [Vitamin D3] 50 mcg (2,000 unit) capsule 1 cap PO DAILY Ozempic 1 mg/dose (2 mg/1.5 mL) pen injector 1 mg SUBCUT SA@0900 betamethasone dipropionate 0.05 % ointment 1 appl topical BID calcipotriene 0.005 % ointment 1 applic topical BID levetiracetam 500 mg tablet 500 mg PO DAILY Qty: 30 0RF hydrocortisone 2.5 % cream 1 appl topical BID PRN (Reason: Skin Irritation) Rx Instructions: Apply to breast and buttocks for flares torsemide 20 mg Tablet 40 mg PO BID@0800,1700 30 Days Qty: 120 2RF Protocol: Hold for SBP< HOLD for SBP < : 90 amlodipine 10 mg tablet 1 tab PO DAILY Triphrocaps 1 mg capsule 1 cap PO DAILY insulin glargine [Lantus Solostar U-100 Insulin] 100 unit/mL (3 mL) insulin pen 40 unit subcut DAILY tizanidine 4 mg tablet 1 tab PO Q8H PRN (Reason: muscle spasm) acetaminophen 500 mg Tablet 500 mg PO Q8H PRN (Reason: Pain) ondansetron 4 mg tablet,disintegrating 1 tab PO Q8H PRN (Reason: Nausea) clotrimazole 1 % Cream 1 appl TOPICAL DAILY PRN (Reason: fold) Discontinued carvedilol 25 mg tablet 1 tab PO BID doxycycline hyclate 100 mg tablet 100 mg PO BID 5 Days Qty: 10 0RF Discharge Orders: Discharge Order (Routine); Ordered 03/11/22 Ordered By: Micheline Arciniega Diet: Advance to usual diet Activity on Discharge: As tolerated Stand Alone Forms: Patient Portal Discharge page Care Plan Goals: acute rehabilitation Health Concerns: stroke Plan of Treatment: Follow-up with primary care provider when discharged from rehab take all medications as prescribed Assessment: see discharge summary
== END 2022-03-11 13:56 | DRG 45 ==
LOC: HO.ED 15:01 → HO.EDOVER 15:06 → HO.ICU 15:43 → HO.IMC 03-07 13:56
PROVIDERS: Internal Medicine; Physician Assistant Medical; Admitting Provider Internal Medicine Pulmonary Disease; Emergency Provider Emergency Medicine Emergency Medical Services; PCP Internal Medicine; Visit Provider Nurse Practitioner Acute Care
DX: I63.29 Cerebral infarction due to unspecified occlusion or stenosis of other precerebral arteries (principal); I12.0 Hypertensive chronic kidney disease with stage 5 chronic kidney disease or end stage renal disease; N18.6 End stage renal disease; D63.1 Anemia in chronic kidney disease; N17.9 Acute kidney failure, unspecified; G81.94 Hemiplegia, unspecified affecting left nondominant side; I95.9 Hypotension, unspecified; R29.708 NIHSS score 8; R47.81 Slurred speech; E11.22 Type 2 diabetes mellitus with diabetic chronic kidney disease; Z99.2 Dependence on renal dialysis; E78.5 Hyperlipidemia, unspecified; G40.909 Epilepsy, unspecified, not intractable, without status epilepticus; G47.33 Obstructive sleep apnea (adult) (pediatric); E66.01 Morbid (severe) obesity due to excess calories; R00.1 Bradycardia, unspecified; Z68.41 Body mass index [BMI] 40.0-44.9, adult; R55 Syncope and collapse; Z86.73 Personal history of transient ischemic attack (TIA), and cerebral infarction without residual deficits; Z91.040 Latex allergy status; Z88.0 Allergy status to penicillin; Z79.82 Long term (current) use of aspirin; Z79.899 Other long term (current) drug therapy
CPT/HCPCS: 36415; 70450; 70551; 71045; 80048; 80061; 80076; 82040; 82550; 82803; 82947; 83735; 84100; 84484; 85025; 85027; 85610; 85730; 87040; 87502; 87635; 90935; 93005; 93306; 93356; 93880; 94660; 97110; 97112; 97116; 97162; 97166; 97530; 99285; J1200; J2270; J2405; J2997; J3010; P9047; Q9957

== ENCOUNTER 2022-05-06 06:52 | Emergency (ER) | payer OTHER, SELFPAY ==
--- NOTE | ~2022-05-06 | XR_ITS ---
EXAMINATION: XR CHEST CLINICAL INFORMATION: Chest pain COMPARISON: 03/06/2022 TECHNIQUE: Frontal view of the chest was obtained. FINDINGS: Heart size normal. No evidence of CHF There is retrocardiac opacity with obscuration left hemidiaphragm consistent with atelectasis/infiltrate/collapse. A tiny left pleural effusion cannot be excluded. The right lung is clear. Again noted is a tunneled right IJ hemodialysis catheter with its tip in the mid SVC. XR/XR chest 1V IMPRESSION: Left lower lobe atelectasis/infiltrate/collapse.
--- NOTE | ~2022-05-06 | CT_ITS ---
EXAMINATION: CT HEAD WITHOUT CONTRAST CLINICAL INFORMATION: Left-sided weakness COMPARISON: MRI of March 08, [address] scan of March 07, 2022 TECHNIQUE: Contiguous axial imaging was performed from the skull base to vertex without intravenous administration of contrast. This CT examination was performed using dose optimization techniques as appropriate, variously including the following: *Automated exposure control *Adjustment of mA and/or kV according to patient size (this includes techniques or standardized protocols for targeted exams where dose is matched to indication/reason for exam; i.e. extremities or head) *Use of iterative reconstruction technique DLP: 661 mGy-cm FINDINGS: No intracranial hemorrhage is identified. No significant mass effect or midline structure shift is seen. No abnormal extra-axial fluid collection. Keller-white matter interface is maintained. Paranasal sinuses and mastoid air cells appear unremarkable. Visualized portions of the pterygoid plates appear intact. There is degenerative change of the right temporomandibular joint. CT/CT head/brain wo IV con IMPRESSION: No acute intracranial pathology. This critical result was discussed with Dr. Anaya at 7:15 AM on May 06, 2022 and it was ascertained that the content and urgency of the report was understood at the time of direct communication.
--- NOTE | 2022-05-06 06:59 | ECG_ITS ---
Test Reason : Chest Pain Blood Pressure : / mmHG Vent. Rate : 078 BPM Atrial Rate : 078 BPM P-R Int : 160 ms QRS Dur : 096 ms QT Int : 388 ms P-R-T Axes : 049 022 082 degrees QTc Int : 442 ms Normal sinus rhythm Nonspecific T wave abnormality Abnormal ECG When compared with ECG of 09-MAR-2022 17:18, Nonspecific T wave abnormality now evident in Inferior leads Nonspecific T wave abnormality, worse in Anterolateral leads Referred By: Saleem Gresham Electronically Signed By:LUNA PADILLA MD
--- NOTE | 2022-05-06 07:00 | ED_ITS ---
HPI - Neuro Symptoms/Deficit General Chief Complaint: Stroke Stated Complaint: stroke Time Seen by Provider: 05/06/22 06:55 Source: EMS Mode of arrival: EMS History of Present Illness HPI Narrative: Patient 56 years old with history of end-stage renal disease on dialysis, prior CVA x2 last MRI done on 03/09 was negative for CVA, diabetes came from dialysis center as staff noticed patient is weak on the left side prior to start her on dialysis. LKWT 06:00, Per records patient has same weakness in 03/09 when detail workup was done which was negative for CVA but patient received tPA in the ER possible pontine stroke was based on clinical findings Related Data Home Medications Medication Instructions Recorded Confirmed aspirin 81 mg chewable tablet 1 tab PO DAILY 12/24/21 03/06/22 atorvastatin 80 mg tablet 1 tab PO DAILY 12/24/21 03/06/22 betamethasone dipropionate 0.05 % 1 appl topical BID 12/24/21 03/06/22 topical ointment calcipotriene 0.005 % topical 1 applic topical BID 12/24/21 03/06/22 ointment cholecalciferol (vitamin D3) 50 1 cap PO DAILY 12/24/21 03/06/22 mcg (2,000 unit) capsule (Vitamin D3) cyanocobalamin (vitamin B-12) 1 tab PO DAILY 12/24/21 03/06/22 1,000 mcg tablet (Vitamin B-12) famotidine 20 mg tablet 1 tab PO DAILY 12/24/21 03/06/22 gabapentin 100 mg capsule 1 cap PO TID 12/24/21 03/06/22 insulin lispro 100 unit/mL See Protocol subcut TIDAC 12/24/21 03/06/22 subcutaneous pen lactulose 10 gram/15 mL oral 15 ml PO DAILY PRN Constipation 12/24/21 03/06/22 solution loperamide 2 mg capsule 1 cap PO Q6H PRN Diarrhea 12/24/21 03/06/22 pantoprazole 40 mg tablet,delayed 1 tab PO DAILY@0630 12/24/21 03/06/22 release semaglutide 1 mg/dose (2 mg/1.5 1 mg subcut SA@0900 12/24/21 03/06/22 mL) subcutaneous pen injector (Ozempic) topiramate 25 mg tablet 1 tab PO DAILY 12/24/21 03/06/22 hydrocortisone 2.5 % topical cream 1 appl topical BID PRN Skin 01/23/22 03/06/22 Irritation acetaminophen 500 mg tablet 500 mg PO Q8H PRN Pain 03/06/22 03/06/22 amlodipine 10 mg tablet 1 tab PO DAILY 03/06/22 03/06/22 clotrimazole 1 % topical cream 1 appl topical DAILY PRN fold 03/06/22 03/06/22 insulin glargine 100 unit/mL (3 40 unit subcut DAILY 03/06/22 03/06/22 mL) subcutaneous pen (Lantus Solostar U-100 Insulin) ondansetron 4 mg disintegrating 1 tab PO Q8H PRN Nausea 03/06/22 03/06/22 tablet tizanidine 4 mg tablet 1 tab PO Q8H PRN muscle spasm 03/06/22 03/06/22 vitamin B complex and vitamin C 1 cap PO DAILY 03/06/22 03/06/22 no.20-folic acid 1 mg capsule (Triphrocaps) Previous Rx's Medication Instructions Recorded levetiracetam 500 mg tablet 500 mg PO DAILY #30 tabs 12/31/21 torsemide 20 mg tablet 40 mg PO BID@0800,1700 30 days 02/04/22 #120 tabs Allergies Allergy/AdvReac Type Severity Reaction Status Date / Time cortex Eucommiae Allergy Severe ANAPHYLAXIS Verified 02/21/22 14:48 [CORTEX EUCOMMIAE] egg [EGG] Allergy Severe VOMITING Verified 12/23/21 21:10 latex [LATEX] Allergy Severe HIVES Verified 02/21/22 14:48 Penicillins [PENICILLINS] Allergy Severe HIVES Verified 12/23/21 21:10 vancomycin [VANCOMYCIN] Allergy Severe HIVES Verified 02/21/22 14:48 Review of Systems Review of Systems: Yes all other systems are reviewed and are negative PMFSH Past Medical History Medical History Acute kidney injury superimposed on CKD CKD (chronic kidney disease) stage 5, GFR less than 15 ml/min Diabetes ESRD on hemodialysis Hyperlipidemia Hypertension Lower back pain Partial deafness Sleep apnea Stroke Surgical History History of carpal tunnel surgery Previous back surgery Family History Family History Maternal Grandfather Prostate cancer Maternal Grandmother Stomach cancer Other No family history of coronary artery disease Social History Social History Household Members: Significant Other Housing: House Do you presently have visiting nurse or other home services: No Alcohol intake: former Patient Tobacco Use Status: Never used Tobacco Second Hand Smoke Exposure: No service: No Current occupational status: student Physical Exam Vital Signs: Vital Signs: Last Vital Signs Temp 98.2 F 05/06/22 07:18 Pulse 82 05/06/22 07:18 Resp 16 05/06/22 07:18 BP 201/95 H 05/06/22 07:18 Pulse Ox 97 05/06/22 07:18 O2 Del Method 05/06/22 07:18 BMI result Body Mass Index 43.5 Appearance: Alert. Oriented X3. No acute distress. Eyes: PERRLA, No Nystagmus ENT: Pharynx normal. Oral Mucosa moist Neck: Normal inspection. Neck supple. CVS: Normal heart rate and rhythm. Pulses normal. Respiratory: No respiratory distress. Equal air entry bilateral, no wheezing/rales/rhonchi Abdomen: Soft and nontender. Bowel sounds are present, no mass palpable, no CVA tenderness Skin: Skin warm and dry. Normal skin color. Normal skin turgor. Extremities: No lower extremity edema. No calf tenderness Neuro: Oriented X 3. No motor deficit. No sensory deficit.No cerebellar signs , cranial nerves II-XII intact Medical Decision Making Medical Decision Making MDM Narrative: Patient with acute onset of left-sided weakness with history of same in the past in 03/09 she was given tPA MRI was done which was negative for stroke. Carotid Doppler was negative Case discussed with Dr. Samuel advised conservative man agement as patient has minor symptoms and no proof of previous CVAs. Patient sign or Dr. Ronen Jackson for further evaluation and disposition Lab Data 05/06/22 07:20 05/06/22 07:20 Labs: Lab Results 05/06/22 Range/Units 07:20 WBC 6.2 (4.8-10.8) X10*3/uL RBC 3.10 L (4.20-5.50) X10*6/uL Hgb 8.6 L (12.0-16.0) g/dl Hct 27.5 L (37.0-47.0) % MCV 88.7 (80.0-98.0) fL MCH 27.7 (27.0-33.0) pg MCHC 31.3 (31.0-35.0) g/dl RDW 16.2 H (11.0-16.0) % Plt Count 243 (160-400) X10*3/uL MPV 8.7 L (9.4-12.3) fL Immature Gran % (Auto) 0.5 H (0.0-0.4) % Neut % (Auto) 76.4 H (45-73) % Lymph % (Auto) 10.9 L (20-40) % [place] % (Auto) 6.8 (2-11) % Eos % (Auto) 4.7 H (0-4) % Baso % (Auto) 0.7 (0-2) % Lymph # (Auto) 0.7 L (1.2-4.9) X10*3/uL [place] # (Auto) 0.4 (0.1-1.2) X10*3/uL Eos # (Auto) 0.3 (0.0-0.4) X10*3/uL Baso # (Auto) 0.0 (0.0-0.2) X10*3/uL Abs Immat Gran (auto) 0.03 (0.00-0.03) X10*3/uL Absolute Neuts (auto) 4.7 (2.0-8.3) x10*3/uL Absolute Nucleated RBC 0.000 (0.0-0.012) X10*3/uL Nucleated RBC % (auto) 0.0 (0.0-0.2) /100WBC NIH Stroke Scale Internal: Initial- Upon Arrival Time: 07:00 Level of Consciousness: Alert Level of Consciousness Questions: Answers both questions correctly Level of Consciousness Commands: Performs both tasks correctly Best Gaze: Normal Visual: No visual loss Facial Palsy: Normal Motor Arm (Right): No drift Motor Arm (Left): Drift Motor Leg (Right): No drift Motor Leg (Left): Drift Limb Ataxia: Absent Sensory: Normal Best Language: No aphasia Dysarthia: Normal Extinction and Inattention: No abnormality Score: 2 Discharge Plan Discharge Clinical Impression: Transient cerebral ischemia, CKD stage 5 due to type 2 diabetes mellitus Patient Disposition: Still a Patient Prescriptions: No Action atorvastatin 80 mg tablet 1 tab PO DAILY loperamide 2 mg capsule 1 cap PO Q6H PRN (Reason: Diarrhea) cyanocobalamin (vitamin B-12) [Vitamin B-12] 1,000 mcg tablet 1 tab PO DAILY topiramate 25 mg tablet 1 tab PO DAILY famotidine 20 mg tablet 1 tab PO DAILY pantoprazole 40 mg tablet,delayed release (DR/EC) 1 tab PO DAILY@0630 aspirin 81 mg tablet,chewable 1 tab PO DAILY gabapentin 100 mg capsule 1 cap PO TID insulin lispro 100 unit/mL insulin pen See Protocol subcut TIDAC Protocol: Insulin Correction Scale Less than or equal to 110 ---- Give (units): 0 111 to 150 Give (units): 0 151 to 200 Give (units): 2 201 to 250 Give (units): 4 251 to 300 Give (units): 6 301 to 350 Give (units): 8 Greater than 350 Give (units): 10 Call MD if Blood Glucose > : 350 Rx Instructions: sliding scale lactulose 10 gram/15 mL solution 15 ml PO DAILY PRN (Reason: Constipation) cholecalciferol (vitamin D3) [Vitamin D3] 50 mcg (2,000 unit) capsule 1 cap PO DAILY Ozempic 1 mg/dose (2 mg/1.5 mL) pen injector 1 mg SUBCUT SA@0900 betamethasone dipropionate 0.05 % ointment 1 appl topical BID calcipotriene 0.005 % ointment 1 applic topical BID levetiracetam 500 mg tablet 500 mg PO DAILY Qty: 30 0RF hydrocortisone 2.5 % cream 1 appl topical BID PRN (Reason: Skin Irritation) Rx Instructions: Apply to breast and buttocks for flares torsemide 20 mg Tablet 40 mg PO BID@0800,1700 30 Days Qty: 120 2RF Protocol: Hold for SBP< HOLD for SBP < : 90 amlodipine 10 mg tablet 1 tab PO DAILY Triphrocaps 1 mg capsule 1 cap PO DAILY insulin glargine [Lantus Solostar U-100 Insulin] 100 unit/mL (3 mL) insulin pen 40 unit subcut DAILY tizanidine 4 mg tablet 1 tab PO Q8H PRN (Reason: muscle spasm) acetaminophen 500 mg Tablet 500 mg PO Q8H PRN (Reason: Pain) ondansetron 4 mg tablet,disintegrating 1 tab PO Q8H PRN (Reason: Nausea) clotrimazole 1 % Cream 1 appl TOPICAL DAILY PRN (Reason: fold)
[2022-05-06 07:18] VITALS: BP 180/60; BP 201/95; PULSE 82; PULSE 84; RESP 16; TEMP 36.8; O2SAT 97; O2SAT 98; BMI 43.5
[2022-05-06 07:25] LABS: MANUAL DIFF FLAG NO
[2022-05-06 07:27] LABS: Basophils Percent Auto 0.7 % (0-2); Eosinophils Absolute Auto 0.3 X10*3/uL (0.0-0.4); Eosinophils Percent Auto 4.7 % (0-4); Hematocrit 27.5 % (37.0-47.0); Hemoglobin 8.6 g/dl (12.0-16.0); Imm Gran Abs Auto 0.03 X10*3/uL (0.00-0.03); Imm Gran Pct Auto 0.5 % (0.0-0.4); Lymphocytes Absolute Auto 0.7 X10*3/uL (1.2-4.9); Lymphocytes Percent Auto 10.9 % (20-40); Mean Corpuscular HGB Conc 31.3 g/dl (31.0-35.0); Mean Corpuscular Hemoglobin 27.7 pg (27.0-33.0); Mean Corpuscular Volume 88.7 fL (80.0-98.0); Mean Platelet Volume 8.7 fL (9.4-12.3); Monocytes Absolute Auto 0.4 X10*3/uL (0.1-1.2); Monocytes Percent Auto 6.8 % (2-11); Neutrophils Absolute Auto 4.7 x10*3/uL (2.0-8.3); Neutrophils Percent Auto 76.4 % (45-73); Platelet Count 243 X10*3/uL (160-400); Red Cell Distribution Width 16.2 % (11.0-16.0); White Blood Count 6.2 X10*3/uL (4.8-10.8)
--- NOTE | 2022-05-06 07:28 | PC.NURSE ---
Patient complaint of chest pain with inspiration LS clear no distress noted MD notified patient hypertensive. AO to person place and situation. EMS IV patent flushes with ease no s/s of infiltration. Left sided upper ext weak grasp 3/5 , LLE unable to hold up leg independently. No facial droop or deviation of tongue patient mumbles.
[2022-05-06 07:36] VITALS: BP 203/95; PULSE 82; RESP 16; TEMP 36.8; O2SAT 98
[2022-05-06] MEDS: Labetalol HCL 100 MG/20 ML VIAL 20 MG IVPUSH (07:36)
[2022-05-06 07:41] LABS: Partial Thromboplastin Time 32.2 SEC (26.0-36.4)
[2022-05-06 07:42] LABS: Stroke Lab Use COMPLETE
[2022-05-06] MEDS: Ketorolac Tromethamine 15 MG/ML VIAL IVPUSH (07:51)
[2022-05-06 07:52] VITALS: BP 170/74; PULSE 82; RESP 14; O2SAT 96
[2022-05-06 07:54] LABS: Anion Gap 16 (12-20); Blood Urea Nitrogen 27 mg/dL (9-16); Calcium 8.6 mg/dL (8.4-10.2); Carbon Dioxide 21 mmol/L (22-29); Chloride 106 mmol/L (96-108); Creatinine Clr Calc Pharmacy 19.9; Estimated Glomerular Filt Rate 13; Glucose Random 211 mg/dL (60-115); Potassium 3.8 mmol/L (3.3-5.1); Sodium 139 mmol/L (135-145)
[2022-05-06 08:01] LABS: Troponin-I High Sensitivity 3.5 ng/L (<3.5-17.0)
[2022-05-06 08:04] LABS: Prothrombin Time Whole Bld POC 12.8 sec (11.1-13.5); ~PT, ~INR - Anti Coag Clinic 1.1 (0.9-1.1)
[2022-05-06 08:06] LABS: Glucose, Whole Blood 220 mg/dL (60-115)
--- NOTE | 2022-05-06 08:51 | PC.NURSE ---
Patient reports improvement in pain continues to be hypertensive patient does make urine will CTM
[2022-05-06 09:03] VITALS: BP 188/92; PULSE 79; RESP 12; O2SAT 98
--- NOTE | 2022-05-06 09:05 | PC.NURSE ---
Pure wick placed for patient with good effect will CTM
[2022-05-06] MEDS: Morphine Sulfate 4 MG/ML CARTRIDGE IVPUSH ×2 (09:50→12:50)
[2022-05-06 10:33] VITALS: BP 168/93; PULSE 78; RESP 18; O2SAT 98
--- NOTE | 2022-05-06 11:07 | MHC.EDTECH ---
Placed Purewick due to patient being unable to walk because of left sided weakness. Patient requested help removing her 24 hour heart monitor. She stated she was instructed to remove it at 11am.
== END 2022-05-06 13:42 | disposition home or self-care (01) ==
PROVIDERS: Internal Medicine; Emergency Provider Emergency Medicine Emergency Medical Services; PCP Internal Medicine
DX: G45.9 Transient cerebral ischemic attack, unspecified (principal); E11.22 Type 2 diabetes mellitus with diabetic chronic kidney disease; I12.0 Hypertensive chronic kidney disease with stage 5 chronic kidney disease or end stage renal disease; N18.5 Chronic kidney disease, stage 5; R07.89 Other chest pain; R51.9 Headache, unspecified; R29.702 NIHSS score 2; M25.512 Pain in left shoulder; Z86.73 Personal history of transient ischemic attack (TIA), and cerebral infarction without residual deficits; Z79.899 Other long term (current) drug therapy; Z79.82 Long term (current) use of aspirin; Z79.4 Long term (current) use of insulin
CPT/HCPCS: 36415; 70450; 71045; 80048; 82550; 82947; 84484; 85025; 85610; 85730; 93005; 96374; 96375; 99284; 99285; J1885; J2270

== ENCOUNTER 2023-02-05 10:19 | Inpatient (IN) | payer OTHER, SELFPAY ==
[2023-02-05] VITALS (9 sets, daily range): BP systolic 141–202; BP diastolic 68–102; PULSE 72–89; RESP 12–20; TEMP 36.3–37.1; O2SAT 93–98; BMI 41.6
--- NOTE | ~2023-02-05 | CT_ITS ---
EXAMINATION: CT ANGIOGRAM OF THE CHEST, ABDOMEN AND PELVIS WITHOUT AND WITH CONTRAST CLINICAL INFORMATION: 01/25 chest pain radiating to the back. Evaluate for aortic dissection. COMPARISON: CT chest 02/21/2022, CT abdomen and pelvis 01/22/2022. TECHNIQUE: Multidetector volumetric CT imaging of the chest, abdomen, and pelvis was performed before and after the administration of 100 mL of Omnipaque 350 intravenous contrast without immediate adverse reactions. 3D POSTPROCESSING: Multiple 3-D angiographic images were processed from the initial data set by the medicine technologist at the modality workstation under concurrent physician supervision. DOSE LOWERING TECHNIQUES: This CT examination was performed using dose optimization techniques as appropriate, variously including the following: - Automated exposure control - Adjustment of mA and/or kV according to patient size (this includes techniques or standardized protocols for targeted exams where dose is matched to indication/reason for exam; i.e. extremities or head) - Use of iterative reconstruction technique DLP: 903 mGy-cm. FINDINGS: VASCULAR: CORONARY ARTERIES: Minimal coronary calcium. ASCENDING AORTA: No aneurysm or dissection. AORTIC ARCH: No aneurysm or dissection. Plaque along the lateral aspect of the arch. Three-vessel branching pattern. No significant atherosclerosis of the great vessels. DESCENDING AORTA: No aneurysm or dissection. ABDOMINAL AORTA: No aneurysm or dissection. Moderate infrarenal atherosclerosis with likely a small penetrating ulcer measuring 3 mm in thickness in the right infrarenal wall. There is no surrounding hematoma. CELIOMESENTERIC ARTERIES: The celiac and superior mesenteric arteries are patent. The inferior mesenteric artery is patent. RENAL ARTERIES: The renal arteries are patent. RIGHT ILIOFEMORAL ARTERIES: Normal caliber with mild atherosclerosis. LEFT ILIOFEMORAL ARTERIES: Normal caliber with mild atherosclerosis. NONVASCULAR: LUNGS: No focal consolidation. Mild airway wall thickening. A few scattered micronodules. No follow-up imaging is recommended as per Fleischner Society guidelines. MEDIASTINUM: No adenopathy. No pericardial effusion. PLEURA: There is no pleural effusion. No pleural mass or thickening. LIVER, GALLBLADDER, AND BILIARY TREE: The liver is normal in size, shape, and attenuation. No focal hepatic lesion or biliary ductal dilatation is present. The gallbladder is unremarkable with no evidence of radiopaque gallstones, gallbladder wall thickening, or obvious pericholecystic inflammatory changes. PANCREAS: No mass or ductal dilatation. No inflammatory stranding. SPLEEN: Unremarkable. ADRENAL GLANDS: No adrenal mass. KIDNEYS AND URETERS: No hydronephrosis or nephrolithiasis. Diffusely thin cortices. Simple cyst in the lower pole right kidney. No follow-up imaging is recommended. BLADDER: Unremarkable. GASTROINTESTINAL TRACT: The small bowel is normal in caliber. No mesenteric mass or fluid. Mild colonic diverticulosis without evidence of diverticulitis. ABDOMINAL WALL: No significant hernia. LYMPH NODES: No lymphadenopathy. PELVIC VISCERA: Unremarkable. OSSEOUS STRUCTURES: Mild multilevel degenerative changes throughout the spine. CT/CT angio chest aorta IMPRESSION: No aortic aneurysm or aortic dissection. Fleischner guidelines were followed.
--- NOTE | ~2023-02-05 | XR_ITS ---
EXAMINATION: XR CHEST CLINICAL INFORMATION: Chest pain COMPARISON: Chest radiograph from 05/09/2022 TECHNIQUE: Frontal view of the chest was obtained. FINDINGS: Interval removal of right-sided dialysis catheter. Bilateral low lung volumes. Slight accentuation of pulmonary vasculature. Slight left basilar atelectasis. No pneumothorax. Trachea is midline. Cardiac mediastinal silhouette is not enlarged. Atherosclerotic calcifications of the aortic arch. No large pleural effusion. Osseous structures are intact. Soft tissues are unremarkable. XR/XR chest 1V IMPRESSION: 1. Interval removal of right-sided dialysis catheter. 2. Bilateral low lung volumes. 3. Slight accentuation of pulmonary vasculature. 4. Slight left basilar atelectasis.
--- NOTE | ~2023-02-05 | CT_ITS ---
EXAMINATION: CT ANGIOGRAM OF THE CHEST, ABDOMEN AND PELVIS WITHOUT AND WITH CONTRAST CLINICAL INFORMATION: 01/25 chest pain radiating to the back. Evaluate for aortic dissection. COMPARISON: CT chest 02/21/2022, CT abdomen and pelvis 01/22/2022. TECHNIQUE: Multidetector volumetric CT imaging of the chest, abdomen, and pelvis was performed before and after the administration of 100 mL of Omnipaque 350 intravenous contrast without immediate adverse reactions. 3D POSTPROCESSING: Multiple 3-D angiographic images were processed from the initial data set by the systems technologist at the modality workstation under concurrent physician supervision. DOSE LOWERING TECHNIQUES: This CT examination was performed using dose optimization techniques as appropriate, variously including the following: - Automated exposure control - Adjustment of mA and/or kV according to patient size (this includes techniques or standardized protocols for targeted exams where dose is matched to indication/reason for exam; i.e. extremities or head) - Use of iterative reconstruction technique DLP: 903 mGy-cm. FINDINGS: VASCULAR: CORONARY ARTERIES: Minimal coronary calcium. ASCENDING AORTA: No aneurysm or dissection. AORTIC ARCH: No aneurysm or dissection. Plaque along the lateral aspect of the arch. Three-vessel branching pattern. No significant atherosclerosis of the great vessels. DESCENDING AORTA: No aneurysm or dissection. ABDOMINAL AORTA: No aneurysm or dissection. Moderate infrarenal atherosclerosis with likely a small penetrating ulcer measuring 3 mm in thickness in the right infrarenal wall. There is no surrounding hematoma. CELIOMESENTERIC ARTERIES: The celiac and superior mesenteric arteries are patent. The inferior mesenteric artery is patent. RENAL ARTERIES: The renal arteries are patent. RIGHT ILIOFEMORAL ARTERIES: Normal caliber with mild atherosclerosis. LEFT ILIOFEMORAL ARTERIES: Normal caliber with mild atherosclerosis. NONVASCULAR: LUNGS: No focal consolidation. Mild airway wall thickening. A few scattered micronodules. No follow-up imaging is recommended as per Fleischner Society guidelines. MEDIASTINUM: No adenopathy. No pericardial effusion. PLEURA: There is no pleural effusion. No pleural mass or thickening. LIVER, GALLBLADDER, AND BILIARY TREE: The liver is normal in size, shape, and attenuation. No focal hepatic lesion or biliary ductal dilatation is present. The gallbladder is unremarkable with no evidence of radiopaque gallstones, gallbladder wall thickening, or obvious pericholecystic inflammatory changes. PANCREAS: No mass or ductal dilatation. No inflammatory stranding. SPLEEN: Unremarkable. ADRENAL GLANDS: No adrenal mass. KIDNEYS AND URETERS: No hydronephrosis or nephrolithiasis. Diffusely thin cortices. Simple cyst in the lower pole right kidney. No follow-up imaging is recommended. BLADDER: Unremarkable. GASTROINTESTINAL TRACT: The small bowel is normal in caliber. No mesenteric mass or fluid. Mild colonic diverticulosis without evidence of diverticulitis. ABDOMINAL WALL: No significant hernia. LYMPH NODES: No lymphadenopathy. PELVIC VISCERA: Unremarkable. OSSEOUS STRUCTURES: Mild multilevel degenerative changes throughout the spine. CT/CT angio abdomen pelvis IMPRESSION: No aortic aneurysm or aortic dissection. Fleischner guidelines were followed.
--- NOTE | 2023-02-05 10:26 | ECG_ITS ---
Test Reason : chest pain Blood Pressure : / mmHG Vent. Rate : 073 BPM Atrial Rate : 073 BPM P-R Int : 144 ms QRS Dur : 090 ms QT Int : 462 ms P-R-T Axes : 036 010 082 degrees QTc Int : 508 ms Normal sinus rhythm Nonspecific T wave abnormality Lateral leads Intra-ventricular conduction delay Abnormal ECG When compared with ECG of 06-MAY-2022 07:29, Nonspecific T wave abnormality no longer evident in Inferior leads Nonspecific T wave abnormality, improved in Lateral leads QT has lengthened Referred By: Cris Sanchez Electronically Signed By:XAVI SHERIDAN MD
--- NOTE | 2023-02-05 10:43 | ED_ITS ---
HPI - Chest Pain General Chief Complaint: Chest Pain Stated Complaint: CP FROM DIALYSIS Time Seen by Provider: 02/05/23 10:25 Source: patient and EMS Mode of arrival: EMS Limitations: no limitations History of Present Illness HPI narrative: 57 yo female with history of ESRD on HD T//Tue, anemia of chronic disease, hx junctional bradycardia, CVA s/p tpa in 2021, DM, HTN, CAREY on CPAP, morbid obesity who presents to the ER from dialysis with complaints of left sided chest pain that started 2-3 days ago and got worse at dialysis today. She states the pain went to a 10/10 and is sharp. It radiates to her back. She also reports central abdominal pain for the last 2 weeks. No nausea or vomiting. She reports some SOB with the pain today. She has had pain similar in the past but not this severe. She completed her HD session. BP at HD was 200 systolic. She was given SL nitro x2 and nitro paste 1 inch by EMS with minimal improvement in her pain. MD complaint: chest pain Onset (ago): day(s) (2) Timing of current episode: constant Prior episodes: Yes Pain location: substernal and left chest Pain radiation: back Severity: severe Pain scale (0-10): 10 Relieving factors: nothing Exacerbating factors: nothing Associated symptoms: dyspnea Treatment prior to arrival: nitroglycerin Risk Factors Coronary artery disease risk factors: diabetes and hypertension Thoracic aortic dissection risk factors: longstanding hypertension Related Data Home Medications Medication Instructions Recorded Confirmed aspirin 81 mg chewable tablet 1 tab PO DAILY 12/24/21 03/06/22 atorvastatin 80 mg tablet 1 tab PO DAILY 12/24/21 03/06/22 betamethasone dipropionate 0.05 % 1 appl topical BID 12/24/21 03/06/22 topical ointment calcipotriene 0.005 % topical 1 applic topical BID 12/24/21 03/06/22 ointment cholecalciferol (vitamin D3) 50 1 cap PO DAILY 12/24/21 03/06/22 mcg (2,000 unit) capsule (Vitamin D3) cyanocobalamin (vitamin B-12) 1 tab PO DAILY 12/24/21 03/06/22 1,000 mcg tablet (Vitamin B-12) famotidine 20 mg tablet 1 tab PO DAILY 12/24/21 03/06/22 gabapentin 100 mg capsule 1 cap PO TID 12/24/21 03/06/22 insulin lispro 100 unit/mL See Protocol subcut TIDAC 12/24/21 03/06/22 subcutaneous pen lactulose 10 gram/15 mL oral 15 ml PO DAILY PRN Constipation 12/24/21 03/06/22 solution loperamide 2 mg capsule 1 cap PO Q6H PRN Diarrhea 12/24/21 03/06/22 pantoprazole 40 mg tablet,delayed 1 tab PO DAILY@0630 12/24/21 03/06/22 release semaglutide 1 mg/dose (2 mg/1.5 1 mg subcut SA@0900 12/24/21 03/06/22 mL) subcutaneous pen injector (Ozempic) topiramate 25 mg tablet 1 tab PO DAILY 12/24/21 03/06/22 hydrocortisone 2.5 % topical cream 1 appl topical BID PRN Skin 01/23/22 03/06/22 Irritation acetaminophen 500 mg tablet 500 mg PO Q8H PRN Pain 03/06/22 03/06/22 amlodipine 10 mg tablet 1 tab PO DAILY 03/06/22 03/06/22 clotrimazole 1 % topical cream 1 appl topical DAILY PRN fold 03/06/22 03/06/22 insulin glargine 100 unit/mL (3 40 unit subcut DAILY 03/06/22 03/06/22 mL) subcutaneous pen (Lantus Solostar U-100 Insulin) ondansetron 4 mg disintegrating 1 tab PO Q8H PRN Nausea 03/06/22 03/06/22 tablet tizanidine 4 mg tablet 1 tab PO Q8H PRN muscle spasm 03/06/22 03/06/22 vitamin B complex and vitamin C 1 cap PO DAILY 03/06/22 03/06/22 no.20-folic acid 1 mg capsule (Triphrocaps) Previous Rx's Medication Instructions Recorded levetiracetam 500 mg tablet 500 mg PO DAILY #30 tabs 12/31/21 torsemide 20 mg tablet 40 mg PO BID@0800,1700 30 days 02/04/22 #120 tabs morphine 15 mg immediate release 15 mg PO Q4-6H PRN pain #10 tabs 05/06/22 tablet Allergies Allergy/AdvReac Type Severity Reaction Status Date / Time cortex Eucommiae Allergy Severe ANAPHYLAXIS Verified 02/21/22 14:48 [CORTEX EUCOMMIAE] egg [EGG] Allergy Severe VOMITING Verified 12/23/21 21:10 latex [LATEX] Allergy Severe HIVES Verified 02/21/22 14:48 Penicillins [PENICILLINS] Allergy Severe HIVES Verified 12/23/21 21:10 vancomycin [VANCOMYCIN] Allergy Severe HIVES Verified 02/21/22 14:48 Review of Systems 2 Review of Systems: Yes all other systems are reviewed and are negative [facility] Past Medical History Medical History (Updated 02/05/23 @ 15:17 by ANASTASIA Tate) Stroke ESRD on hemodialysis CKD (chronic kidney disease) stage 5, GFR less than 15 ml/min Acute kidney injury superimposed on CKD Lower back pain Partial deafness Sleep apnea Hyperlipidemia Hypertension Diabetes Surgical History History of carpal tunnel surgery Previous back surgery Family History Family History Maternal Grandfather Prostate cancer Maternal Grandmother Stomach cancer Other No family history of coronary artery disease Social History Social History Household Members: Significant Other Housing: House Do you presently have visiting nurse or other home services: No Alcohol intake: former Patient Tobacco Use Status: Never used Tobacco Smoked in Last 30 Days: No Second Hand Smoke Exposure: No Use of substances other than those prescribed or required for medical reasons: No Advance Directives: No Advance Directives Information Provided: Yes service: No Current occupational status: student Physical Exam 2 Vital Signs: Vital Signs: Last Vital Signs Temp 98.8 F 02/05/23 10:37 Pulse 82 02/05/23 15:53 Resp 12 02/05/23 15:53 BP 181/85 H 02/05/23 15:53 Pulse Ox 95 02/05/23 15:53 O2 Del Method Room Air 02/05/23 15:53 BMI result Body Mass Index 41.6 Appearance: Alert. Oriented X3. No acute distress. Head: normocephalic, atraumatic. Eyes: Pupils equal, round and reactive to light. ENT: Pharynx normal. No tonsillar swelling or exudate. Neck: Normal inspection. Neck supple. CVS: Normal heart rate and rhythm. Pulses normal. Nontender chest wall Respiratory: No respiratory distress. Breath sounds normal. Abdomen: Obese Soft with epigastric tenderness, +guarding no rebound +BS x4 Skin: Skin warm and dry. Normal skin color. Normal skin turgor. No rashes. Extremities: No lower extremity edema. No joint swelling. Neuro/psych: Oriented X 3. No motor deficit. No sensory deficit. CN II-XII intact. Normal speech and cognition. Medications Administered Discontinued Medications Generic Name Dose Route Start Last Admin Trade Name Freq PRN Reason Stop Dose Admin Hydromorphone HCl 0.5 mg 02/05/23 14:12 02/05/23 14:31 Hydromorphone Hcl 1 Mg/Ml Syringe IVPUSH 02/05/23 14:13 0.5 mg ONCE ONE Administration Protocol Iohexol 100 ml 02/05/23 15:26 02/05/23 15:27 Iohexol 350 Mg/Ml 100 Ml Infus..Btl IV 02/05/23 15:27 100 ml ONCE ONE Administration Labetalol HCl 10 mg 02/05/23 13:40 02/05/23 13:54 Labetalol Hcl 100 Mg/20 Ml Vial IVPUSH 02/05/23 13:41 10 mg ONCE ONE Administration Labetalol HCl 10 mg 02/05/23 16:00 02/05/23 16:32 Labetalol Hcl 100 Mg/20 Ml Vial IVPUSH 02/05/23 16:01 10 mg ONCE ONE Administration Morphine Sulfate 2 mg 02/05/23 11:53 02/05/23 12:21 Morphine Sulfate 2 Mg/Ml Cartridge IVPUSH 02/05/23 11:54 2 mg ONCE ONE Administration Protocol Medical Decision Making Medical Decision Making MDM Narrative: 57 yo female with history of ESRD on HD T//Tue, anemia of chronic disease, hx junctional bradycardia, CVA s/p tpa in 2021, DM, HTN, CAREY on CPAP, morbid obesity who presents to the ER from dialysis with complaints of left sided chest pain that started 2-3 days ago and got worse at dialysis today. BP 200s for EMS, 180-190 here. IV labetalol and morphine given with ongoing chest pain. EKG without ischemic changes and troponin negative x2. CTA negative for dissection required 2nd dose of IV labetalol and IV dilaudid for pain in the left chest. BP 170s with baseline 130s at home. only on norvasc 5 mg at home. will plan to admit to the hospital for HTN urgency and mediation management Differential Diagnosis Differential Diagnoses: The differential diagnosis associated with the presentation includes HTN urgency, HTN emergency, thoracic dissection, AAA, ACS, PE Admission/Observation Consideration of admission/observation: Escalation of care including admission/observation considered Consult Healthcare Provider Management of the patient was discussed with: Oracle Database Administrator Senior Safety Management Consultant - king for IV contrast, no indication for HD within 24 hours of dye load Lab Data MDM Lab Attestation statement: I reviewed the patient's lab results. stabel anemia, troponin negative x2 02/05/23 11:04 02/05/23 11:04 Labs: Lab Results 02/05/23 02/05/23 Range/Units 11:04 13:59 WBC 6.4 (4.8-10.8) X10*3/uL RBC 3.28 L (4.20-5.50) X10*6/uL Hgb 9.5 L (12.0-16.0) g/dl Hct 29.3 L (37.0-47.0) % MCV 89.3 (80.0-98.0) fL MCH 29.0 (27.0-33.0) pg MCHC 32.4 (31.0-35.0) g/dl RDW 15.0 (11.0-16.0) % Plt Count 170 D (160-400) X10*3/uL MPV 9.5 (9.4-12.3) fL Immature Gran % (Auto) 0.5 H (0.0-0.4) % Neut % (Auto) 76.5 H (45-73) % Lymph % (Auto) 12.0 L (20-40) % Lane % (Auto) 6.8 (2-11) % Eos % (Auto) 3.6 (0-4) % Baso % (Auto) 0.6 (0-2) % Lymph # (Auto) 0.8 L (1.2-4.9) X10*3/uL Lane # (Auto) 0.4 (0.1-1.2) X10*3/uL Eos # (Auto) 0.2 (0.0-0.4) X10*3/uL Baso # (Auto) 0.0 (0.0-0.2) X10*3/uL Abs Immat Gran (auto) 0.03 (0.00-0.03) X10*3/uL Absolute Neuts (auto) 4.9 (2.0-8.3) x10*3/uL Absolute Nucleated RBC 0.000 (0.0-0.012) X10*3/uL Nucleated RBC % (auto) 0.0 (0.0-0.2) /100WBC Sodium 137 (135-145) mmol/L Potassium 3.2 L (3.3-5.1) mmol/L Chloride 98 (96-108) mmol/L Carbon Dioxide 30 H (22-29) mmol/L Anion Gap 12 (12-20) BUN 7 L (9-16) mg/dL Creatinine 1.94 H (0.5-1.4) mg/dL Estim Creat Clear Calc 34.6 Estimated GFR 27 Random Glucose 156 H (60-115) mg/dL Calcium 9.2 D (8.4-10.2) mg/dL Magnesium 1.8 (1.6-2.6) mg/dL Total Bilirubin 0.5 (0.0-1.0) mg/dL Direct Bilirubin 0.2 (0.0-0.5) mg/dL AST 18 (5-31) U/L ALT 15 (0-31) U/L Alkaline Phosphatase 98 (39-117) U/L Troponin I High Sens 4.0 4.2 (<3.5-17.0) ng/L Total Protein 7.4 (6.5-8.0) g/dL Albumin 3.6 (3.5-5.0) g/dL COVID-19 (JODY) Negative (Negative) COVID-19 Clin Com See Note Independent Interpretation I performed an independent interpretation of an: EKG and CT Scan Interpretation: ekg w/ normal sinus rhythm, HR 73 bpm, no ST segment elevations or depressions, prolonged QTc 508ms cxr w/ mild pulmonary vascular congestion, low lung volumes CTA without acute PE or dissection, agree w/ radiology read Radiology Impression Discussion of test interpretation with radiology: I have reviewed the radiologist's reading. Radiologist Impression: XR/XR chest 1V IMPRESSION: 1. Interval removal of right-sided dialysis catheter. 2. Bilateral low lung volumes. 3. Slight accentuation of pulmonary vasculature. 4. Slight left basilar atelectasis. EXAMINATION: CT ANGIOGRAM OF THE CHEST, ABDOMEN AND PELVIS WITHOUT AND WITH CONTRAST CLINICAL INFORMATION: 01/25 chest pain radiating to the back. Evaluate for aortic dissection. COMPARISON: CT chest 02/21/2022, CT abdomen and pelvis 01/22/2022. TECHNIQUE: Multidetector volumetric CT imaging of the chest, abdomen, and pelvis was performed before and after the administration of 100 mL of Omnipaque 350 intravenous contrast without immediate adverse reactions. 3D POSTPROCESSING: Multiple 3-D angiographic images were processed from the initial data set by the systems technologist at the modality workstation under concurrent physician supervision. DOSE LOWERING TECHNIQUES: This CT examination was performed using dose optimization techniques as appropriate, variously including the following: - Automated exposure control - Adjustment of mA and/or kV according to patient size (this includes techniques or standardized protocols for targeted exams where dose is matched to indication/reason for exam; i.e. extremities or head) - Use of iterative reconstruction technique DLP: 903 mGy-cm. FINDINGS: VASCULAR: CORONARY ARTERIES: Minimal coronary calcium. ASCENDING AORTA: No aneurysm or dissection. AORTIC ARCH: No aneurysm or dissection. Plaque along the lateral aspect of the arch. Three-vessel branching pattern. No significant atherosclerosis of the great vessels. DESCENDING AORTA: No aneurysm or dissection. ABDOMINAL AORTA: No aneurysm or dissection. Moderate infrarenal atherosclerosis with likely a small penetrating ulcer measuring 3 mm in thickness in the right infrarenal wall. There is no surrounding hematoma. CELIOMESENTERIC ARTERIES: The celiac and superior mesenteric arteries are patent. The inferior mesenteric artery is patent. RENAL ARTERIES: The renal arteries are patent. RIGHT ILIOFEMORAL ARTERIES: Normal caliber with mild atherosclerosis. LEFT ILIOFEMORAL ARTERIES: Normal caliber with mild atherosclerosis. NONVASCULAR: LUNGS: No focal consolidation. Mild airway wall thickening. A few scattered micronodules. No follow-up imaging is recommended as per Fleischner Society guidelines. MEDIASTINUM: No adenopathy. No pericardial effusion. PLEURA: There is no pleural effusion. No pleural mass or thickening. LIVER, GALLBLADDER, AND BILIARY TREE: The liver is normal in size, shape, and attenuation. No focal hepatic lesion or biliary ductal dilatation is present. The gallbladder is unremarkable with no evidence of radiopaque gallstones, gallbladder wall thickening, or obvious pericholecystic inflammatory changes. PANCREAS: No mass or ductal dilatation. No inflammatory stranding. SPLEEN: Unremarkable. ADRENAL GLANDS: No adrenal mass. KIDNEYS AND URETERS: No hydronephrosis or nephrolithiasis. Diffusely thin cortices. Simple cyst in the lower pole right kidney. No follow-up imaging is recommended. BLADDER: Unremarkable. GASTROINTESTINAL TRACT: The small bowel is normal in caliber. No mesenteric mass or fluid. Mild colonic diverticulosis without evidence of diverticulitis. ABDOMINAL WALL: No significant hernia. LYMPH NODES: No lymphadenopathy. PELVIC VISCERA: Unremarkable. OSSEOUS STRUCTURES: Mild multilevel degenerative changes throughout the spine. CT/CT angio abdomen pelvis IMPRESSION: No aortic aneurysm or aortic dissection. Independent Historian Clinical information obtained from an independent historian. History obtained from or confirmed by: EMS External Record Review External record reviewed: Office record, Outpatient record, Prior outpatient labs and Prior outpatient radiology Prescription Management I considered prescription management with: Pain Medication and Other (antihypertensive) Chronic Conditions Patient?s care impacted by: Diabetes, Hypertension and Other (ESRD) Critical Care Time Critical Care Time Critical Care Time: Yes Total Critical Care Time: 44 Attestation: I have personally provided critical care time exclusive of time spent on separately billable procedures. Time includes review of lab data, radiology results, discussion with consultants, and monitoring for potential decompensation. Intervention performed as documented. Discharge Plan Discharge Clinical Impression: Chest pain, Hypertensive urgency Patient Disposition: Admitted As Inpatient
[2023-02-05 11:09] LABS: MANUAL DIFF FLAG NO
[2023-02-05 11:13] LABS: Basophils Percent Auto 0.6 % (0-2); Eosinophils Absolute Auto 0.2 X10*3/uL (0.0-0.4); Eosinophils Percent Auto 3.6 % (0-4); Hematocrit 29.3 % (37.0-47.0); Hemoglobin 9.5 g/dl (12.0-16.0); Imm Gran Abs Auto 0.03 X10*3/uL (0.00-0.03); Imm Gran Pct Auto 0.5 % (0.0-0.4); Lymphocytes Absolute Auto 0.8 X10*3/uL (1.2-4.9); Mean Corpuscular HGB Conc 32.4 g/dl (31.0-35.0); Mean Corpuscular Volume 89.3 fL (80.0-98.0); Mean Platelet Volume 9.5 fL (9.4-12.3); Monocytes Absolute Auto 0.4 X10*3/uL (0.1-1.2); Monocytes Percent Auto 6.8 % (2-11); Neutrophils Absolute Auto 4.9 x10*3/uL (2.0-8.3); Neutrophils Percent Auto 76.5 % (45-73); Platelet Count 170 X10*3/uL (160-400); Red Blood Count 3.28 X10*6/uL (4.20-5.50); White Blood Count 6.4 X10*3/uL (4.8-10.8)
[2023-02-05 11:26] LABS: Alanine Aminotransferase 15 U/L (0-31); Albumin Level 3.6 g/dL (3.5-5.0); Alkaline Phosphatase 98 U/L (39-117); Anion Gap 12 (12-20); Aspartate Amino Transferase 18 U/L (5-31); Bilirubin Direct 0.2 mg/dL (0.0-0.5); Bilirubin Total 0.5 mg/dL (0.0-1.0); Blood Urea Nitrogen 7 mg/dL (9-16); Calcium 9.2 mg/dL (8.4-10.2); Carbon Dioxide 30 mmol/L (22-29); Chloride 98 mmol/L (96-108); Creatinine Clr Calc Pharmacy 34.6; Estimated Glomerular Filt Rate 27; Glucose Random 156 mg/dL (60-115); Magnesium 1.8 mg/dL (1.6-2.6); Potassium 3.2 mmol/L (3.3-5.1); Sodium 137 mmol/L (135-145); Total Protein 7.4 g/dL (6.5-8.0)
[2023-02-05 11:31] LABS: COVID-19 Test Negative (Negative); IDNOW Serial# BCCEAD1C
[2023-02-05] MEDS: Morphine Sulfate 2 MG/ML CARTRIDGE IVPUSH (12:21)
--- NOTE | 2023-02-05 12:58 | PC.NURSE ---
pt aox4, coming from dialysis after reporting 2x days chest pain. Pt also reports abd pain and low back pain. Morphine given per PA orders. EKG done and labs drawn. Pt came in on 4L O2. Removed during triage, pt satts remained high 96+. plan of care ongoing.
[2023-02-05] MEDS: Labetalol HCL 100 MG/20 ML VIAL 10 MG IVPUSH ×2 (13:54→16:32)
--- NOTE | 2023-02-05 13:58 | PC.NURSE ---
repeat trop drawn by tech. labetaolol given per PA order.
[2023-02-05 14:26] LABS: Troponin-I High Sensitivity 4.2 ng/L (<3.5-17.0)
[2023-02-05] MEDS: HYDROmorphone HCl 1 MG/ML SYRINGE 0.5 MG IVPUSH (14:31)
--- NOTE | 2023-02-05 14:51 | PC.NURSE ---
medication not scanning. double checked with Alissa LIND and verified. dilaudid 0.5mg given.
--- NOTE | 2023-02-05 15:03 | PC.NURSE ---
pt to CT scan
[2023-02-05] MEDS: iohexoL 350 MG/ML 100 ML INFUS..BTL IV (15:27)
--- NOTE | 2023-02-05 17:24 | PHA.MEDREC ---
Pharmacy Consult ? Medication Reconciliation Pharmacy has completed the medication reconciliation. Patient had list on phone, says it was current. When asked about medications that were not current in claim history but on her list, she noted that [facility] blister packs her medications for her. Son at bedside insisting on good adherence.
--- NOTE | 2023-02-05 18:02 | P.HPHOSP_ITS ---
History of Present Illness Date of Service: 02/05/23 Chief Complaint: Chest pain, loin pain A 57 years old lady with PMH of ESRD on HD, HTN, HLD, DM among others who presents to the hospital from HD center with AMS and elevated BP readings. The patient reports that for almost a week she has been feeling off with less energy and pain all over her body. reporting chills but no fever. had throat congestion, cough,muscle ache but no changes in bowel habit. Today she went to dialysis as scheduled and by the end of her sessions she started feeling pain over her chest and loin. couldnt remember much after that incident as she woke up in ED. She was found to have elevated BP readings of >200 SBP. responded to IV medications. Blood work with mild hypokalemia post dialysis. Admitted for evaluation and close monitoring. Review of Systems 2 Review of Systems: No fever, chills but has generalized weakness No chest pain, palpitation No shortness of breath or coughing No abdominal pain, nausea or vomiting No urinary symptoms PMFSH Medical History Stroke ESRD on hemodialysis CKD (chronic kidney disease) stage 5, GFR less than 15 ml/min Acute kidney injury superimposed on CKD Lower back pain Partial deafness Sleep apnea Hyperlipidemia Hypertension Diabetes Family History Maternal Grandfather Prostate cancer Maternal Grandmother Stomach cancer Other No family history of coronary artery disease Surgical History History of carpal tunnel surgery Previous back surgery Social History Household Members: Significant Other Housing: House Do you presently have visiting nurse or other home services: No Alcohol intake: former Patient Tobacco Use Status: Never used Tobacco Smoked in Last 30 Days: No Second Hand Smoke Exposure: No Use of substances other than those prescribed or required for medical reasons: No Advance Directives: No Advance Directives Information Provided: Yes Nutrition Risks: No Nutritional Risk service: No Current occupational status: student Meds Allergies Allergy/AdvReac Type Severity Reaction Status Date / Time cortex Eucommiae Allergy Severe ANAPHYLAXIS Verified 02/21/22 14:48 [CORTEX EUCOMMIAE] egg [EGG] Allergy Severe VOMITING Verified 12/23/21 21:10 latex [LATEX] Allergy Severe HIVES Verified 02/21/22 14:48 Penicillins [PENICILLINS] Allergy Severe HIVES Verified 12/23/21 21:10 vancomycin [VANCOMYCIN] Allergy Severe HIVES Verified 02/21/22 14:48 Active Medications: Current Medications Acetaminophen (Acetaminophen 325 Mg Tablet) 650 mg PO Q6H PRN PRN Reason: Pain, Mild (Pain Scale 1-3) Amlodipine Besylate (Amlodipine Besylate 10 Mg Tablet) 10 mg PO DAILY [facility]; Protocol Aspirin (Aspirin 81 Mg Tab.Chew) 81 mg PO DAILY [facility] Atorvastatin Calcium (Atorvastatin Calcium 80 Mg Tablet) 80 mg PO DAILY [facility] Clotrimazole (Clotrimazole 1 % Cream 15 Gm Tube) 1 appl TOPICAL BID PRN; Protocol PRN Reason: skin folds Cyanocobalamin (Cyanocobalamin (Vitamin B-12) 1,000 Mcg Tablet) mcg PO DAILY [facility] Dicyclomine HCl (Dicyclomine Hcl 10 Mg Capsule) 10 mg PO TID [facility] Enoxaparin Sodium (Enoxaparin Sodium 40 Mg/0.4 Ml Syringe) 40 mg SUBCUT Q24H [facility] Famotidine (Famotidine 20 Mg Tablet) 20 mg PO DAILY [facility] Fluoxetine HCl (Fluoxetine Hcl 10 Mg Capsule) 10 mg PO DAILY [facility] Fluoxetine HCl (Fluoxetine Hcl 20 Mg Capsule) 20 mg PO DAILY [facility] Gabapentin (Gabapentin 100 Mg Capsule) 100 mg PO TID [facility] Insulin Glargine (Insulin Glargine,Hum.Rec.Anlog 100 Unit/Ml 10 Ml Vial) 28 unit SUBCUT DAILY [facility] Insulin Human Lispro (Insulin Lispro 100 Unit/Ml 3 Ml Vial) 0 unit SUBCUT QIDACHS [facility]; Protocol Lactulose (Lactulose 20 Gm/30 Ml Solution) 10 gm PO BEDTIME [facility] Levetiracetam (Levetiracetam 500 Mg Tablet) 500 mg PO DAILY [facility] Loperamide HCl (Loperamide Hcl 2 Mg Capsule) 2 mg PO Q6H PRN PRN Reason: Diarrhea Melatonin (Melatonin 3 Mg Tablet) 9 mg PO DAILY PRN PRN Reason: Sleep Morphine Sulfate (Morphine Sulfate 4 Mg/Ml Cartridge) 2 mg IVPUSH Q4H PRN; Protocol PRN Reason: Pain, Severe (Pain Scale 7-10) Non-Formulary Medication (Pantoprazole) 1 tab PO DAILY@0630 [facility] Non-Formulary Medication (Ferrous Sulfate) 325 mg PO BID [facility] Ondansetron HCl (Ondansetron Hcl 4 Mg/2 Ml Vial) 4 mg IVPUSH Q8H PRN PRN Reason: Nausea and Vomiting Senna (Sennosides 8.6 Mg Tablet) 8.6 mg PO DAILY [facility] Simethicone (Simethicone 80 Mg Tab.Chew) 80 mg PO QIDWMHS [facility] Sodium Chloride (0.9 % Sodium Chloride Flush 3 Ml Syringe) 3 ml IVFLUSH QSHIFT [facility] Tizanidine HCl (Tizanidine Hcl 4 Mg Tablet) 4 mg PO TID PRN PRN Reason: muscle spasm Topiramate (Topiramate 25 Mg Tablet) 25 mg PO DAILY [facility] Vitamin D (Cholecalciferol (Vitamin D3) 25 Mcg Tablet) 50 mcg PO DAILY [facility] Home Medications Medication Instructions Recorded Confirmed Last Taken Type aspirin 81 mg chewable tablet 1 tab PO DAILY 12/24/21 02/05/23 02/04/23 History atorvastatin 80 mg tablet 1 tab PO DAILY 12/24/21 02/05/23 02/04/23 History cholecalciferol (vitamin D3) 50 1 cap PO DAILY 12/24/21 02/05/23 02/04/23 History mcg (2,000 unit) capsule (Vitamin D3) cyanocobalamin (vitamin B-12) 1 tab PO DAILY 12/24/21 02/05/23 02/04/23 History 1,000 mcg tablet (Vitamin B-12) gabapentin 100 mg capsule 1 cap PO TID 12/24/21 02/05/23 02/04/23 History insulin lispro 100 unit/mL See Protocol subcut TIDAC 12/24/21 02/05/23 02/04/23 History subcutaneous pen loperamide 2 mg capsule 1 cap PO Q6H PRN Diarrhea 12/24/21 02/05/23 12/23/21 08:00 History pantoprazole 40 mg tablet,delayed 1 tab PO DAILY@0630 12/24/21 02/05/23 02/04/23 History release semaglutide 1 mg/dose (2 mg/1.5 1 mg subcut SA@0900 12/24/21 02/05/23 01/29/23 History mL) subcutaneous pen injector (Ozempic) acetaminophen 500 mg tablet 500 mg PO Q8H PRN Pain 03/06/22 02/05/23 Unknown History amlodipine 10 mg tablet 1 tab PO DAILY 03/06/22 02/05/23 02/04/23 History insulin glargine 100 unit/mL (3 40 unit subcut DAILY 03/06/22 02/05/23 02/04/23 History mL) subcutaneous pen (Lantus Solostar U-100 Insulin) tizanidine 4 mg tablet 1 tab PO TID PRN muscle spasm 03/06/22 02/05/23 Unknown History calcipotriene 0.005 % topical cream 1 appl topical BID PRN psoriasis 02/05/23 02/05/23 Unknown History clotrimazole 1 % topical cream 1 appl topical BID PRN skin folds 02/05/23 02/05/23 Unknown History dicyclomine 10 mg capsule 10 mg PO TID PRN Spasms 02/05/23 02/05/23 Unknown History famotidine 20 mg tablet 20 mg PO DAILY 02/05/23 02/05/23 02/04/23 History ferrous sulfate 325 mg (65 mg 325 mg PO BID 02/05/23 02/05/23 02/04/23 History iron) tablet,delayed release fluoxetine 10 mg capsule 10 mg PO DAILY 02/05/23 02/05/23 02/04/23 History fluoxetine 20 mg capsule 20 mg PO DAILY 02/05/23 02/05/23 02/04/23 History lactulose 10 gram/15 mL oral 15 ml PO BEDTIME 02/05/23 02/05/23 02/04/23 History solution levetiracetam 500 mg tablet 500 mg PO DAILY 02/05/23 02/05/23 02/04/23 History melatonin 3 mg tablet 9 mg PO DAILY PRN Sleep 02/05/23 02/05/23 Unknown History ondansetron 4 mg disintegrating 4 mg PO Q8H PRN Nausea And Vomiting 02/05/23 02/05/23 Unknown History tablet sennosides 8.6 mg tablet (senna) 8.6 mg PO DAILY 02/05/23 02/05/23 02/04/23 History topiramate 25 mg tablet 25 mg PO DAILY 1002/05/23 02/04/23 History Physical Exam 2 Vital Signs and Narrative: Vital Signs: Last Vital Signs Temp 98.8 F 02/05/23 10:37 Pulse 72 02/05/23 17:33 Resp 16 02/05/23 17:33 BP 147/77 H 02/05/23 17:33 Pulse Ox 93 02/05/23 17:33 O2 Del Method Room Air 02/05/23 17:33 BMI result Body Mass Index 41.6 Const: Other: Constitutional : Awake, interactive, not in distress Neck : Normal inspection, Supple Cardiovascular : RRR, no JVP, no lower extremity edema Respiratory : good bilateral air entry, no crackles, wheezes or rhonchi Gastrointestinal: soft, lax, Normal bowel sounds, Non tender Skin : Warm, Dry, LUE dialysis fistula Neurological : Alert & oriented x3, No focal deficit , CN 2-12 within normal Results Labs 02/05/23 11:04 02/06/23 06:26 Labs: Laboratory Results - last 24 hr 02/05/23 11:04 MCV 89.3 MCH 29.0 MCHC 32.4 RDW 15.0 Plt Count 170 D MPV 9.5 Immature Gran % (Auto) 0.5 H Neut % (Auto) 76.5 H Lymph % (Auto) 12.0 L [place] % (Auto) 6.8 Eos % (Auto) 3.6 Baso % (Auto) 0.6 Lymph # (Auto) 0.8 L [place] # (Auto) 0.4 Eos # (Auto) 0.2 Baso # (Auto) 0.0 Abs Immat Gran (auto) 0.03 Absolute Neuts (auto) 4.9 Absolute Nucleated RBC 0.000 Nucleated RBC % (auto) 0.0 Anion Gap 12 Estim Creat Clear Calc 34.6 Estimated GFR 27 Random Glucose 156 H Calcium 9.2 D Magnesium 1.8 Total Bilirubin 0.5 Direct Bilirubin 0.2 AST 18 ALT 15 Alkaline Phosphatase 98 Total Protein 7.4 Albumin 3.6 COVID-19 (JODY) Negative COVID-19 Clin Com See Note Imaging Radiologist's Impressions: Impressions Chest X-Ray 02/05/23 10:47 IMPRESSION: 1. Interval removal of right-sided dialysis catheter. 2. Bilateral low lung volumes. 3. Slight accentuation of pulmonary vasculature. 4. Slight left basilar atelectasis. Abdomen/Pelvis CTA 02/05/23 15:28 IMPRESSION: No aortic aneurysm or aortic dissection. Fleischner guidelines were followed. Chest CTA 02/05/23 15:28 IMPRESSION: No aortic aneurysm or aortic dissection. Fleischner guidelines were followed. Assessment and Plan (1) Hypertensive urgency: Status: Acute (2) Chest pain: Status: Acute Plan A 57 years old lady with PMH of ESRD on HD, HTN, HLD, DM among others who presents to the hospital from HD center with AMS and elevated BP readings. Chest pain EKG w no changes of ST\T-wave to suggest ACS Negative trop Likely a result of hypertensive urgency and musckoskeletal pain keep on tele, repeat EKG for pain Hypertensive urgency Improved with IV medications Continue home medications of Amlodipine 10 mg daily Start Lisinopril monitor BP ESRD on HD Nephrology to follow TTS DVT PPx Heparin The patient will likely need 2 overnight hospital stay for control of BP and need of HD. Time Spent With Patient Time: Total time managing care of this patient today ____ minutes. Quality Stroke Does the patient have a stroke diagnosis?: No VTE Prior VTE?: No VTE Risk Level:: Medical - moderate - high VTE Device Contraindication: Treatment Not Indicated VTE Drug Contraindication: N/A - Med Ordered
[2023-02-05] MEDS: Enoxaparin Sodium 40 MG/0.4 ML SYRINGE SUBCUT (18:33)
--- NOTE | 2023-02-05 19:09 | PC.NURSE ---
assumed care of pt
[2023-02-05 19:26] LABS: Appearance Urine Clear; Color Urine Yellow; Glucose Urine UA 100 mg/dL (Negative); Leukocyte Esterase Urine Negative (Negative); Nitrite Urine Negative (Negative); PH >= 9.0 (5.0-9.0); Specific Gravity - Urine >= 1.030 (1.005-1.025); UMIC TRIGGER UACC YES; Urine Blood Trace (Negative); Urine Ketones Negative (Negative); Urine Protein >=1000 (4+) mg/dL (Neg-Trace)
[2023-02-05 19:31] LABS: Bacteria Urine None Seen (None Seen); Hyaline Casts Urine 0-2 /LPF (0-2); Squamous Epithelial Cell Urine 0-2 /HPF (0-2); WBC Urine 0-5 /HPF (0-5)
[2023-02-05] MEDS: Simethicone 80 MG TAB.CHEW PO (20:21)
[2023-02-05] MEDS: Morphine Sulfate 4 MG/ML CARTRIDGE 2 MG IVPUSH (20:21)
[2023-02-05] MEDS: Dicyclomine HCl 10 MG CAPSULE PO (20:22)
[2023-02-05] MEDS: Ferrous Sulfate 324 MG TABLET.DR PO (20:22)
[2023-02-05] MEDS: Gabapentin 100 MG CAPSULE PO (20:22)
[2023-02-05 20:28] LABS: Glucose, Whole Blood 153 mg/dL (60-115)
[2023-02-05] MEDS: Insulin Lispro 100 UNIT/ML 3 ML VIAL SUBCUT (20:28)
[2023-02-05] MEDS: ondansetron HCL 4 MG/2 ML VIAL IVPUSH (20:28)
[2023-02-05] MEDS: 0.9 % Sodium Chloride Flush 3 ML SYRINGE IVFLUSH (23:30)
[2023-02-06] VITALS (7 sets, daily range): BP systolic 144–175; BP diastolic 64–80; PULSE 75–86; RESP 11–20; TEMP 36.7–37.1; O2SAT 95–100
[2023-02-06] MEDS: Morphine Sulfate 4 MG/ML CARTRIDGE 2 MG IVPUSH ×4 (04:01→21:08)
[2023-02-06] MEDS: ondansetron HCL 4 MG/2 ML VIAL IVPUSH ×2 (04:05→14:40)
--- NOTE | 2023-02-06 04:22 | PC.NURSE ---
Pt c/o nausea and pain 01/25. Given zofran and morphine.
[2023-02-06 06:57] LABS: Anion Gap 15 (12-20); Blood Urea Nitrogen 14 mg/dL (9-16); Carbon Dioxide 27 mmol/L (22-29); Chloride 100 mmol/L (96-108); Creatinine Clr Calc Pharmacy 20.9; Estimated Glomerular Filt Rate 15; Glucose Random 156 mg/dL (60-115); Potassium 3.9 mmol/L (3.3-5.1); Sodium 138 mmol/L (135-145)
[2023-02-06] MEDS: Omeprazole 20 MG CAPSULE.DR PO (07:09)
[2023-02-06] MEDS: Insulin Lispro 100 UNIT/ML 3 ML VIAL SUBCUT ×3 (07:09→18:29)
[2023-02-06] MEDS: Simethicone 80 MG TAB.CHEW PO ×4 (07:09→21:08)
[2023-02-06] MEDS: 0.9 % Sodium Chloride Flush 3 ML SYRINGE IVFLUSH ×2 (07:10→18:30)
--- NOTE | 2023-02-06 07:15 | PC.NURSE ---
pt is currently awake sitting on the edge of her bed, skin appropriate for ethnicity, respirations even and unlabored, ls clear, pt reports having sharp midsternal chest pain 10/10 but stats that the morphine helped a little bit and the zofran helped some as well, also reports feeling slightly sob. left sided fistula-pt's dialysis days are tuesday, and tuesday. vs stable and ns on the monitor
[2023-02-06 08:06] LABS: Glucose, Whole Blood 164 mg/dL (60-115)
--- NOTE | 2023-02-06 08:37 | P.CONNP_ITS ---
History of Present Illness Reason for Consult Consult date: 02/06/23 Chief Complaint Chief complaint: chest pain, high BP History of Present Illness Narrative: 57 year old patient with history of ESRD followed by Dr Ocasio presented from dialysis with elevated blood pressure and altered mental status. She tells me that her dialysis was terminated 30 minutes before the end. She complains of pain but denies feer, chills, chest pain, shortness of breath, nausea or vomiting. Review of Systems Review of Systems 10 points ROS negative except for pertinent in [facility] Past Medical History Medical History Stroke ESRD on hemodialysis CKD (chronic kidney disease) stage 5, GFR less than 15 ml/min Acute kidney injury superimposed on CKD Lower back pain Partial deafness Sleep apnea Hyperlipidemia Hypertension Diabetes Family History Family History Maternal Grandfather Prostate cancer Maternal Grandmother Stomach cancer Other No family history of coronary artery disease Surgical History Surgical History History of carpal tunnel surgery Previous back surgery Social History Social History Household Members: Significant Other Housing: House Do you presently have visiting nurse or other home services: No Alcohol intake: former Patient Tobacco Use Status: Never used Tobacco Smoked in Last 30 Days: No Second Hand Smoke Exposure: No Use of substances other than those prescribed or required for medical reasons: No Advance Directives: No Advance Directives Information Provided: Yes Nutrition Risks: No Nutritional Risk service: No Current occupational status: student Meds Allergies Allergy/AdvReac Type Severity Reaction Status Date / Time cortex Eucommiae Allergy Severe ANAPHYLAXIS Verified 02/21/22 14:48 [CORTEX EUCOMMIAE] egg [EGG] Allergy Severe VOMITING Verified 12/23/21 21:10 latex [LATEX] Allergy Severe HIVES Verified 02/21/22 14:48 Penicillins [PENICILLINS] Allergy Severe HIVES Verified 12/23/21 21:10 vancomycin [VANCOMYCIN] Allergy Severe HIVES Verified 02/21/22 14:48 Active Medications: Current Medications Acetaminophen (Acetaminophen 325 Mg Tablet) 650 mg PO Q6H PRN PRN Reason: Pain, Mild (Pain Scale 1-3) Amlodipine Besylate (Amlodipine Besylate 10 Mg Tablet) 10 mg PO DAILY [facility]; Protocol Aspirin (Aspirin 81 Mg Tab.Chew) 81 mg PO DAILY [facility] Atorvastatin Calcium (Atorvastatin Calcium 80 Mg Tablet) 80 mg PO DAILY [facility] Clotrimazole (Clotrimazole 1 % Cream 15 Gm Tube) 1 appl TOPICAL BID PRN; Protocol PRN Reason: skin folds Cyanocobalamin (Cyanocobalamin (Vitamin B-12) 1,000 Mcg Tablet) 1,000 mcg PO DAILY [facility] Dicyclomine HCl (Dicyclomine Hcl 10 Mg Capsule) 10 mg PO TID [facility] Last Admin: 02/05/23 20:22 Dose: 10 mg Famotidine (Famotidine 20 Mg Tablet) 20 mg PO DAILY [facility] Ferrous Sulfate (Ferrous Sulfate 324 Mg Tablet.Dr) 324 mg PO BID [facility] Last Admin: 02/05/23 20:22 Dose: 324 mg Fluoxetine HCl (Fluoxetine Hcl 10 Mg Capsule) 10 mg PO DAILY [facility] Fluoxetine HCl (Fluoxetine Hcl 20 Mg Capsule) 20 mg PO DAILY [facility] Gabapentin (Gabapentin 100 Mg Capsule) 100 mg PO TID [facility] Last Admin: 02/05/23 20:22 Dose: 100 mg Heparin Sodium (Porcine) (Heparin Sodium,Porcine 5,000 Unit/Ml Vial) 5,000 unit SUBCUT Q12H [facility] Insulin Glargine (Insulin Glargine,Hum.Rec.Anlog 100 Unit/Ml 10 Ml Vial) 28 unit SUBCUT DAILY [facility] Insulin Human Lispro (Insulin Lispro 100 Unit/Ml 3 Ml Vial) 0 unit SUBCUT QIDACHS [facility]; Protocol Last Admin: 02/06/23 07:09 Dose: 2 unit Lactulose (Lactulose 20 Gm/30 Ml Solution) 10 gm PO BEDTIME [facility] Last Admin: 02/05/23 20:34 Dose: Not Given Levetiracetam (Levetiracetam 500 Mg Tablet) 500 mg PO DAILY [facility] Loperamide HCl (Loperamide Hcl 2 Mg Capsule) 2 mg PO Q6H PRN PRN Reason: Diarrhea Losartan Potassium (Losartan Potassium 25 Mg Tablet) 25 mg PO DAILY [facility]; Protocol Melatonin (Melatonin 3 Mg Tablet) 9 mg PO DAILY PRN PRN Reason: Sleep Morphine Sulfate (Morphine Sulfate 4 Mg/Ml Cartridge) 2 mg IVPUSH Q4H PRN; Protocol PRN Reason: Pain, Severe (Pain Scale 7-10) Last Admin: 02/06/23 04:01 Dose: 2 mg Omeprazole (Omeprazole 20 Mg Capsule.Dr) 20 mg PO DAILY@0630 [facility] Last Admin: 02/06/23 07:09 Dose: 20 mg Ondansetron HCl (Ondansetron Hcl 4 Mg/2 Ml Vial) 4 mg IVPUSH Q8H PRN PRN Reason: Nausea and Vomiting Last Admin: 02/06/23 04:05 Dose: 4 mg Senna (Sennosides 8.6 Mg Tablet) 8.6 mg PO DAILY [facility] Simethicone (Simethicone 80 Mg Tab.Chew) 80 mg PO QIDWMHS [facility] Last Admin: 02/06/23 07:09 Dose: 80 mg Sodium Chloride (0.9 % Sodium Chloride Flush 3 Ml Syringe) 3 ml IVFLUSH QSHIFT [facility] Last Admin: 02/06/23 07:10 Dose: 3 ml Tizanidine HCl (Tizanidine Hcl 4 Mg Tablet) 4 mg PO TID PRN PRN Reason: muscle spasm Topiramate (Topiramate 25 Mg Tablet) 25 mg PO DAILY [facility] Vitamin D (Cholecalciferol (Vitamin D3) 25 Mcg Tablet) 50 mcg PO DAILY [facility] Home Medications Medication Instructions Recorded Confirmed Last Taken Type aspirin 81 mg chewable tablet 1 tab PO DAILY 12/24/21 02/05/23 02/04/23 History atorvastatin 80 mg tablet 1 tab PO DAILY 12/24/21 02/05/23 02/04/23 History cholecalciferol (vitamin D3) 50 1 cap PO DAILY 12/24/21 02/05/23 02/04/23 History mcg (2,000 unit) capsule (Vitamin D3) cyanocobalamin (vitamin B-12) 1 tab PO DAILY 12/24/21 02/05/23 02/04/23 History 1,000 mcg tablet (Vitamin B-12) gabapentin 100 mg capsule 1 cap PO TID 12/24/21 02/05/23 02/04/23 History insulin lispro 100 unit/mL See Protocol subcut TIDAC 12/24/21 02/05/23 02/04/23 History subcutaneous pen loperamide 2 mg capsule 1 cap PO Q6H PRN Diarrhea 12/24/21 02/05/2322 08:00 History pantoprazole 40 mg tablet,delayed 1 tab PO DAILY@0630 12/24/21 02/05/23 02/04/23 History release semaglutide 1 mg/dose (2 mg/1.5 1 mg subcut SA@0900 12/24/21 02/05/23 01/29/23 History mL) subcutaneous pen injector (Ozempic) acetaminophen 500 mg tablet 500 mg PO Q8H PRN Pain 03/06/22 02/05/23 Unknown History amlodipine 10 mg tablet 1 tab PO DAILY 03/06/22 02/05/23 02/04/23 History insulin glargine 100 unit/mL (3 40 unit subcut DAILY 03/06/22 02/05/23 02/04/23 History mL) subcutaneous pen (Lantus Solostar U-100 Insulin) tizanidine 4 mg tablet 1 tab PO TID PRN muscle spasm 03/06/22 02/05/23 Unknown History calcipotriene 0.005 % topical cream 1 appl topical BID PRN psoriasis 02/05/23 02/05/23 Unknown History clotrimazole 1 % topical cream 1 appl topical BID PRN skin folds 02/05/23 02/05/23 Unknown History dicyclomine 10 mg capsule 10 mg PO TID PRN Spasms 02/05/23 02/05/23 Unknown History famotidine 20 mg tablet 20 mg PO DAILY 02/05/23 02/05/23 02/04/23 History ferrous sulfate 325 mg (65 mg 325 mg PO BID 02/05/23 02/05/23 02/04/23 History iron) tablet,delayed release fluoxetine 10 mg capsule 10 mg PO DAILY 02/05/23 02/05/23 02/04/23 History fluoxetine 20 mg capsule 20 mg PO DAILY 02/05/23 02/05/23 02/04/23 History lactulose 10 gram/15 mL oral 15 ml PO BEDTIME 02/05/23 02/05/23 02/04/23 History solution levetiracetam 500 mg tablet 500 mg PO DAILY 02/05/23 02/05/23 02/04/23 History melatonin 3 mg tablet 9 mg PO DAILY PRN Sleep 02/05/23 02/05/23 Unknown History ondansetron 4 mg disintegrating 4 mg PO Q8H PRN Nausea And Vomiting 02/05/23 02/05/23 Unknown History tablet sennosides 8.6 mg tablet (senna) 8.6 mg PO DAILY 02/05/23 02/05/23 02/04/23 History topiramate 25 mg tablet 25 mg PO DAILY 02/05/23 02/05/23 02/04/23 History Physical Exam Vital Signs: Last Vital Signs Temp 98.6 F 02/06/23 03:54 Pulse 82 02/06/23 07:14 Resp 20 02/06/23 07:14 BP 162/76 H 02/06/23 07:14 Pulse Ox 100 02/06/23 07:14 O2 Del Method Nasal Cannula 02/06/23 07:14 O2 Flow Rate 2 02/06/23 07:14 BMI result Body Mass Index 41.6 Const General: alert and awake HEENT Head: Yes normocephalic and Yes atraumatic Neck Neck: Yes supple Resp Auscultation: clear to auscultation bilaterally Cardio Heart sounds: S1 normal heart sound present and S2 normal heart sound present GI Palpation (GI): Soft to palpation and nontender Extrem General: No no pedal edema Results Lab Results 02/05/23 11:04 02/06/23 06:26 Lab results: Chemistry 02/05/23 02/06/23 11:04 06:26 Sodium 137 138 Potassium 3.2 L 3.9 D Carbon Dioxide 30 H 27 BUN 7 L 14 Creatinine 1.94 H 3.21 H Calcium 9.2 D 9.0 Hematology 02/05/23 11:04 WBC 6.4 Hgb 9.5 L Plt Count 170 D Urinalysis 02/05/23 19:12 Urine Color Yellow Urine Appearance Clear Urine pH >= 9.0 Ur Specific [place] >= 1.030 H Urine Protein >=1000 (4+) H Urine Glucose (UA) 100 H Urine Ketones Negative Urine Blood Trace H Urine Nitrite Negative Ur Leukocyte Esterase Negative Urine RBC 6-10 H Urine WBC 0-5 Ur Squamous Epith Cells 0-2 Hyaline Casts 0-2 Assessment and Plan (1) ESRD (end stage renal disease): Status: Acute (2) Anemia: Status: Acute (3) Hypertensive urgency: Status: Acute Plan 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 Procedures Date of Service Date of Service: 02/06/23
[2023-02-06] MEDS: Aspirin 81 MG TAB.CHEW PO (09:36)
[2023-02-06] MEDS: FLUoxetine HCl 20 MG CAPSULE PO (09:38)
[2023-02-06] MEDS: Topiramate 25 MG TABLET PO (09:38)
[2023-02-06] MEDS: levETIRAcetam 500 MG TABLET PO (09:38)
[2023-02-06] MEDS: FLUoxetine HCl 10 MG CAPSULE PO (09:38)
[2023-02-06] MEDS: Atorvastatin Calcium 80 MG TABLET PO (09:39)
[2023-02-06] MEDS: Losartan Potassium 25 MG TABLET PO (09:39)
[2023-02-06] MEDS: Sennosides 8.6 MG TABLET PO (09:40)
[2023-02-06] MEDS: Famotidine 20 MG TABLET PO (09:40)
[2023-02-06] MEDS: Gabapentin 100 MG CAPSULE PO ×3 (09:40→21:08)
[2023-02-06] MEDS: Dicyclomine HCl 10 MG CAPSULE PO ×3 (09:40→21:08)
[2023-02-06] MEDS: Ferrous Sulfate 324 MG TABLET.DR PO ×2 (09:41→21:08)
[2023-02-06] MEDS: Cholecalciferol (Vitamin D3) 25 MCG TABLET 50 MCG PO (09:41)
[2023-02-06] MEDS: Cyanocobalamin (Vitamin B-12) 1,000 MCG TABLET 1000 MCG PO (09:42)
[2023-02-06] MEDS: amLODIPine Besylate 10 MG TABLET PO (09:42)
[2023-02-06] MEDS: Insulin Glargine,Hum.rec.anlog 100 UNIT/ML 10 ML VIAL 28 UNIT SUBCUT (09:43)
[2023-02-06 09:57] LABS: Adenovirus PCR Not Detected (Not Detect.); Bordetella parapertussis PCR Not Detected (Not Detect.); Bordetella pertussis PCR Not Detected (Not Detect.); Chlamydia pneumoniae PCR Not Detected (Not Detect.); Coronavirus 229E PCR Not Detected (Not Detect.); Coronavirus HKU1 PCR Not Detected (Not Detect.); Coronavirus NL63 PCR Not Detected (Not Detect.); Coronavirus OC43 PCR Not Detected (Not Detect.); Human metapneumovirus PCR Not Detected (Not Detect.); Influenza A PCR Not Detected (Not Detect.); Influenza B PCR Not Detected (Not Detect.); Mycoplasma pneumoniae PCR Not Detected (Not Detect.); Parainfluenza 1 PCR Not Detected (Not Detect.); Parainfluenza 2 PCR Not Detected (Not Detect.); Parainfluenza 3 PCR Not Detected (Not Detect.); Parainfluenza 4 PCR Not Detected (Not Detect.); RSV PCR Not Detected (Not Detect.); Rhino/Enterovirus PCR Not Detected (Not Detect.)
[2023-02-06 10:10] LABS: SARS-CoV-2 PCR Not Detected (Not Detect.)
--- NOTE | 2023-02-06 10:46 | P.PNIM_ITS ---
Subjective Subjective Date of Service: 02/06/23 Interval History: seen and evaluated feels better overall still having back pain no chest tightness today, blood pressure better controlled feeling weak and has no energy Review of Systems Review of Systems: Yes all other systems are reviewed and are negative Physical Exam 2 Vital Signs: Vital Signs: Last Vital Signs Temp 98.6 F 02/06/23 03:54 Pulse 82 02/06/23 07:14 Resp 20 02/06/23 07:14 BP 162/76 H 02/06/23 07:14 Pulse Ox 100 02/06/23 07:14 O2 Del Method Nasal Cannula 02/06/23 07:14 O2 Flow Rate 2 02/06/23 07:14 BMI result Body Mass Index 41.6 Const: Other: Constitutional : Awake, interactive, not in distress Neck : Normal inspection, Supple Cardiovascular : RRR, no JVP, no lower extremity edema Respiratory : good bilateral air entry, no crackles, wheezes or rhonchi Gastrointestinal: soft, lax, Normal bowel sounds, Non tender Skin : Warm, Dry, LUE dialysis fistula Neurological : Alert & oriented x3, No focal deficit Objective Data Active Medications Acetaminophen (Acetaminophen 325 Mg Tablet) 650 mg PO Q6H PRN PRN Reason: Pain, Mild (Pain Scale 1-3) Aspirin (Aspirin 81 Mg Tab.Chew) 81 mg PO DAILY [facility] Last Admin: 02/06/23 09:36 Dose: 81 mg Documented By: TORREY Atorvastatin Calcium (Atorvastatin Calcium 80 Mg Tablet) 80 mg PO DAILY [facility] Last Admin: 02/06/23 09:39 Dose: 80 mg Documented By: TORREY Clotrimazole (Clotrimazole 1 % Cream 15 Gm Tube) 1 appl TOPICAL BID PRN; Protocol PRN Reason: skin folds Cyanocobalamin (Cyanocobalamin (Vitamin B-12) 1,000 Mcg Tablet) 1,000 mcg PO DAILY [facility] Last Admin: 02/06/23 09:42 Dose: 1,000 mcg Documented By: TORREY Dicyclomine HCl (Dicyclomine Hcl 10 Mg Capsule) 10 mg PO TID [facility] Last Admin: 02/06/23 09:40 Dose: 10 mg Documented By: TORREY Famotidine (Famotidine 20 Mg Tablet) 20 mg PO DAILY [facility] Last Admin: 02/06/23 09:40 Dose: 20 mg Documented By: TORREY Ferrous Sulfate (Ferrous Sulfate 324 Mg Tablet.) 324 mg PO BID [facility] Last Admin: 02/06/23 09:41 Dose: 324 mg Documented By: TORREY Fluoxetine HCl (Fluoxetine Hcl 10 Mg Capsule) 10 mg PO DAILY [facility] Last Admin: 02/06/23 09:38 Dose: 10 mg Documented By: TORREY Fluoxetine HCl (Fluoxetine Hcl 20 Mg Capsule) 20 mg PO DAILY [facility] Last Admin: 02/06/23 09:38 Dose: 20 mg Documented By: TORREY Gabapentin (Gabapentin 100 Mg Capsule) 100 mg PO TID [facility] Last Admin: 02/06/23 09:40 Dose: 100 mg Documented By: TORREY Heparin Sodium (Porcine) (Heparin Sodium,Porcine 5,000 Unit/Ml Vial) 5,000 unit SUBCUT Q12H [facility] Insulin Glargine (Insulin Glargine,Hum.Rec.Anlog 100 Unit/Ml 10 Ml Vial) 28 unit SUBCUT DAILY [facility] Last Admin: 02/06/23 09:43 Dose: 28 unit Documented By: TORREY Insulin Human Lispro (Insulin Lispro 100 Unit/Ml 3 Ml Vial) 0 unit SUBCUT QIDACHS [facility]; Protocol Last Admin: 02/06/23 07:09 Dose: 2 unit Documented By: KUSHAL Lactulose (Lactulose 20 Gm/30 Ml Solution) 10 gm PO BEDTIME [facility] Last Admin: 02/05/23 20:34 Dose: Not Given Documented By: MELODY Non-Admin Reason: Patient Refused Levetiracetam (Levetiracetam 500 Mg Tablet) 500 mg PO DAILY [facility] Last Admin: 02/06/23 09:38 Dose: 500 mg Documented By: TORREY Loperamide HCl (Loperamide Hcl 2 Mg Capsule) 2 mg PO Q6H PRN PRN Reason: Diarrhea Losartan Potassium (Losartan Potassium 25 Mg Tablet) 25 mg PO DAILY [facility]; Protocol Last Admin: 02/06/23 09:39 Dose: 25 mg Documented By: TORREY Melatonin (Melatonin 3 Mg Tablet) 9 mg PO DAILY PRN PRN Reason: Sleep Morphine Sulfate (Morphine Sulfate 4 Mg/Ml Cartridge) 2 mg IVPUSH Q4H PRN; Protocol PRN Reason: Pain, Severe (Pain Scale 7-10) Last Admin: 02/06/23 10:27 Dose: 2 mg Documented By: TORREY Nifedipine (Nifedipine Er 30 Mg Tab.Er.24) 30 mg PO DAILY [facility]; Protocol Omeprazole (Omeprazole 20 Mg Capsule.Dr) 20 mg PO DAILY@0630 [facility] Last Admin: 02/06/23 07:09 Dose: 20 mg Documented By: KUSHAL Ondansetron HCl (Ondansetron Hcl 4 Mg/2 Ml Vial) 4 mg IVPUSH Q8H PRN PRN Reason: Nausea and Vomiting Last Admin: 02/06/23 04:05 Dose: 4 mg Documented By: RHIANNON Senna (Sennosides 8.6 Mg Tablet) 8.6 mg PO DAILY [facility] Last Admin: 02/06/23 09:40 Dose: 8.6 mg Documented By: TORREY Simethicone (Simethicone 80 Mg Tab.Chew) 80 mg PO QIDWMHS [facility] Last Admin: 02/06/23 07:09 Dose: 80 mg Documented By: KUSHAL Sodium Chloride (0.9 % Sodium Chloride Flush 3 Ml Syringe) 3 ml IVFLUSH QSHIFT [facility] Last Admin: 02/06/23 07:10 Dose: 3 ml Documented By: KUSHAL Tizanidine HCl (Tizanidine Hcl 4 Mg Tablet) 4 mg PO TID PRN PRN Reason: muscle spasm Topiramate (Topiramate 25 Mg Tablet) 25 mg PO DAILY [facility] Last Admin: 02/06/23 09:38 Dose: 25 mg Documented By: TORREY Vitamin D (Cholecalciferol (Vitamin D3) 25 Mcg Tablet) 50 mcg PO DAILY [facility] Last Admin: 02/06/23 09:41 Dose: 50 mcg Documented By: TORREY Labs 02/05/23 11:04 02/06/23 06:26 Labs: Laboratory Results - last 24 hr 02/05/23 02/05/23 02/05/23 11:04 19:12 19:25 MCV 89.3 MCH 29.0 MCHC 32.4 RDW 15.0 Plt Count 170 D MPV 9.5 Immature Gran % (Auto) 0.5 H Neut % (Auto) 76.5 H Lymph % (Auto) 12.0 L [place] % (Auto) 6.8 Eos % (Auto) 3.6 Baso % (Auto) 0.6 Lymph # (Auto) 0.8 L [place] # (Auto) 0.4 Eos # (Auto) 0.2 Baso # (Auto) 0.0 Abs Immat Gran (auto) 0.03 Absolute Neuts (auto) 4.9 Absolute Nucleated RBC 0.000 Nucleated RBC % (auto) 0.0 Hold Purple Top Anion Gap 12 Estim Creat Clear Calc 34.6 Estimated GFR 27 POC Glucose Random Glucose 156 H Calcium 9.2 D Magnesium 1.8 Total Bilirubin 0.5 Direct Bilirubin 0.2 AST 18 ALT 15 Alkaline Phosphatase 98 Total Protein 7.4 Albumin 3.6 Urine Color Yellow Urine Appearance Clear Urine pH >= 9.0 Ur Specific [place] >= 1.030 H Urine Protein >=1000 (4+) H Urine Glucose (UA) 100 H Urine Ketones Negative Urine Blood Trace H Urine Nitrite Negative Ur Leukocyte Esterase Negative Urine RBC 6-10 H Urine WBC 0-5 Ur Squamous Epith Cells 0-2 Urine Bacteria None Seen Hyaline Casts 0-2 Respiratory Panel [place] See Note Adenovirus (Rapid PCR) Not Detected B.pert (TEM-PCR) Not Detected B.parapertussis DNA PCR Not Detected C. pneumoniae DNA (PCR) Not Detected Coronavirus OC43 (PCR) Not Detected Coronavirus HKU1 (PCR) Not Detected Coronavirus 229E (PCR) Not Detected COVID-19 (JODY) Negative COVID-19 Clin Com See Note Coronavirus NL63 (PCR) Not Detected Human Metapneumovir PCR Not Detected Influenza A (RT-PCR) Not Detected Influenza B (RT-PCR) Not Detected M. pneumoniae (PCR) Not Detected Parainfluenza 1 (PCR) Not Detected Parainfluenza 2 (PCR) Not Detected Parainfluenza 3 (PCR) Not Detected Parainfluenza 4 (PCR) Not Detected RSV (PCR) Not Detected Entero/Rhino (PCR) Not Detected SARS-CoV-2 RNA (RT-PCR) Not Detected 02/05/23 02/06/23 02/06/23 20:20 06:26 08:02 MCV MCH MCHC RDW Plt Count MPV Immature Gran % (Auto) Neut % (Auto) Lymph % (Auto) [place] % (Auto) Eos % (Auto) Baso % (Auto) Lymph # (Auto) [place] # (Auto) Eos # (Auto) Baso # (Auto) Abs Immat Gran (auto) Absolute Neuts (auto) Absolute Nucleated RBC Nucleated RBC % (auto) Hold Purple Top SEE NOTE Anion Gap 15 Estim Creat Clear Calc 20.9 Estimated GFR 15 POC Glucose 153 H 164 H Random Glucose 156 H Calcium 9.0 Magnesium Total Bilirubin Direct Bilirubin AST ALT Alkaline Phosphatase Total Protein Albumin Urine Color Urine Appearance Urine pH Ur Specific [place] Urine Protein Urine Glucose (UA) Urine Ketones Urine Blood Urine Nitrite Ur Leukocyte Esterase Urine RBC Urine WBC Ur Squamous Epith Cells Urine Bacteria Hyaline Casts Respiratory Panel [place] Adenovirus (Rapid PCR) B.pert (TEM-PCR) B.parapertussis DNA PCR C. pneumoniae DNA (PCR) Coronavirus OC43 (PCR) Coronavirus HKU1 (PCR) Coronavirus 229E (PCR) COVID-19 (JODY) COVID-19 Clin Com Coronavirus NL63 (PCR) Human Metapneumovir PCR Influenza A (RT-PCR) Influenza B (RT-PCR) M. pneumoniae (PCR) Parainfluenza 1 (PCR) Parainfluenza 2 (PCR) Parainfluenza 3 (PCR) Parainfluenza 4 (PCR) RSV (PCR) Entero/Rhino (PCR) SARS-CoV-2 RNA (RT-PCR) Assessment and Plan (1) ESRD (end stage renal disease): Status: Acute (2) Hypertensive urgency: Status: Acute Plan A 57 years old lady with PMH of ESRD on HD, HTN, HLD, DM among others who presents to the hospital from HD center with AMS and elevated BP readings. Chest pain Likely a result of hypertensive urgency and musckoskeletal pain EKG w no changes of ST\T-wave to suggest ACS Negative trop keep on tele, repeat EKG for pain Hypertensive urgency Improved Change Amlodipine to Nifedipine Start Losartan monitor BP ESRD on HD Nephrology to follow TTS DVT PPx Heparin The patient will likely need overnight hospital stay for control of BP and need of HD. Time Spent With Patient Time: Total time managing care of this patient today ____ minutes. Quality Stroke Does the patient have a stroke diagnosis?: No VTE Prior VTE?: No VTE Risk Level:: Medical - moderate - high VTE Device Contraindication: Treatment Not Indicated VTE Drug Contraindication: N/A - Med Ordered
--- NOTE | 2023-02-06 11:27 | MHC.CM.PN ---
PT REPORTS SHE LIVES WITH HER SHE SAYS SHE IS SUPPOSED TO HAVE DELIVERY CONSULTANT SERVICES BUT DOES NOT AT THIS TIME SHE REPORTS [facility] APPROVED HER FOR HOURS BUT DID NOT SHOW HER HOW TO COMPLETE THE PAPERWORK, SO SHE HAS NEVER HAD ANYONE SHE ASKS FOR A REFERRAL TO [facility] TO DETERMINE IF SERVICES COULD BE PROVIDED BY [facility] INSTEAD PT HAS A WALKER, CM SUPPLIES, AND A NEBULIZER SHE GOES TO [facility] FOR SHE SAYS SHE HAS A HCP NAMING HER HER AGNET, COPY REQUESTED PCP: GAY PLUNKETT DCP: HOME WITH [facility] REFERRAL VIA PRIVATE TRANSPORT
[2023-02-06 13:51] LABS: Glucose, Whole Blood 206 mg/dL (60-115)
--- NOTE | 2023-02-06 14:49 | PC.NURSE ---
pt reporting 9/10 pain in chest, back. also c/o nausea. given zofran and morphine PRN awaiting bed assingment
--- NOTE | 2023-02-06 17:14 | MHC.EDTECH ---
this pct just assumed care of pt ,vitals taken ,blood sugar check ,rn Rosaura aware of blood sugar result .
[2023-02-06] MEDS: Heparin Sodium,Porcine 5,000 UNIT/ML VIAL 5000 UNIT SUBCUT (17:15)
[2023-02-06 17:39] LABS: Glucose, Whole Blood 185 mg/dL (60-115)
--- NOTE | 2023-02-06 18:37 | PC.NURSE ---
pt was eating dinner and vomited 400ccs into emesis bag. reports that they were not feeling nauseous before eating. sitting up at edge of bed, no apparent distress, not reporting any acute nausea, but general feeling of being unwell
[2023-02-06 21:01] LABS: Glucose, Whole Blood 141 mg/dL (60-115)
--- NOTE | 2023-02-06 21:34 | PC.NURSE ---
this rn assumed care of pt. pt a&ox3. respirations even and unlabored, lung sounds clear bilaterally. abdomen soft non tender to touch. pt reports 10/10 back pain. pt reports nausea after eating and an episode of vomiting. pt medicated per mar at this time. pt normal sinus on tele [id number].
--- NOTE | 2023-02-06 23:04 | PC.NURSE ---
pt ambulated with steady gait to bathroom at this time. denies SOB and dizziness.
[2023-02-07] VITALS (7 sets, daily range): BP systolic 138–177; BP diastolic 50–74; PULSE 77–89; RESP 14–18; TEMP 36.1–37.1; O2SAT 93–97; BMI 40.9
[2023-02-07] MEDS: 0.9 % Sodium Chloride Flush 3 ML SYRINGE IVFLUSH ×4 (00:35→22:09)
--- NOTE | 2023-02-07 01:40 | PC.NURSE ---
pt sleeping , respirations even and unlabored.
[2023-02-07] MEDS: Heparin Sodium,Porcine 5,000 UNIT/ML VIAL 5000 UNIT SUBCUT ×2 (06:23→17:46)
[2023-02-07] MEDS: Omeprazole 20 MG CAPSULE.DR PO (06:24)
[2023-02-07] MEDS: Morphine Sulfate 4 MG/ML CARTRIDGE 2 MG IVPUSH ×4 (06:28→23:10)
[2023-02-07] MEDS: ondansetron HCL 4 MG/2 ML VIAL IVPUSH ×2 (06:28→18:16)
--- NOTE | 2023-02-07 06:30 | PC.NURSE ---
pt requesting prn dose of morphine for 9/10 pain in the abdomen. pt respirations even and unlabored.
[2023-02-07 07:50] LABS: Glucose, Whole Blood 109 mg/dL (60-115)
--- NOTE | 2023-02-07 08:14 | PC.NURSE ---
PT IS SLEEPING RESP EVEN AND UNLABORED. BREAKFAST AT BEDSIDE. NO B/P TO L ARM (L FOREARM FISTULA). NO EDEMA NOTED. PT IS AWARE OF PLAN OF CARE.
--- NOTE | 2023-02-07 09:32 | PM.DS ---
DS: Providers Provider Date of admission: 02/05/23 17:55 Primary care physician: Delfina Butler MD Consults: 02/05/23 18:01 Consult to Nephrology Routine Consulting Provider: Mateus Campa Reason for consultation: Luke of HD DS: Diagnosis Discharge Diagnosis (1) ESRD (end stage renal disease): Status: Acute (2) Hypertensive urgency: Status: Acute (3) Acute kidney injury superimposed on CKD: Status: Acute DS: Summary Hospital Course Hospital Course: Admission note HPI A 57 years old lady with PMH of ESRD on HD, HTN, HLD, DM among others who presents to the hospital from HD center with AMS and elevated BP readings. The patient reports that for almost a week she has been feeling off with less energy and pain all over her body. reporting chills but no fever. had throat congestion, cough,muscle ache but no changes in bowel habit. Today she went to dialysis as scheduled and by the end of her sessions she started feeling pain over her chest and loin. couldnt remember much after that incident as she woke up in ED. She was found to have elevated BP readings of >200 SBP. responded to IV medications. Blood work with mild hypokalemia post dialysis. Admitted for evaluation and close monitoring. Hospital course Admitted for evaluation of hypertensive urgency and chest pain. EKG w no changes of ST\T-wave to suggest ACS. Negative trop. kept on tele with no abnormal waves reported. Blood pressure improved with IV and oral medications. she was evaluated by Wrong Address Clerk who recommended changing Amlodipine to Nifedipine. Started on Losartan as well with good tolerance. chest pain resolved. she was able to tolerate diet. To continue dialysis as outpatient. Course complicated by acute hyponatremia which resolved after dialysis. For nausea vomiting differential includes gastroparesis, gastritis, irritable bowel syndrome, CTA abdomen was unremarkable. She was seen by GI who recommended increasing Bentyl, continue PPI. For end-stage renal disease was continue on dialysis. Time Spent with Patient Time attestation: Total time managing care of this patient today ____ minutes. Physical Exam Vital Signs: Vital Signs: Last Vital Signs Temp 98.7 F 02/07/23 07:28 Pulse 84 02/07/23 07:28 Resp 14 02/07/23 07:28 BP 138/66 02/07/23 07:28 Pulse Ox 94 02/07/23 07:28 O2 Del Method Room Air 02/07/23 07:28 O2 Flow Rate 2 02/06/23 07:14 BMI result Body Mass Index 41.6 Const: Other: Constitutional : Awake, interactive, not in distress Neck : Normal inspection, Supple Cardiovascular : RRR, no JVP, no lower extremity edema Respiratory : good bilateral air entry, no crackles, wheezes or rhonchi Gastrointestinal: soft, lax, Normal bowel sounds, Non tender Skin : Warm, Dry, LUE dialysis fistula Neurological : Alert & oriented x3, No focal deficit DS: Data Data Completed and Pending Completed studies during hospitalization [Text1]: Procedures Assistance with Respiratory Ventilation, Less than 24 Consecutive Hours, Continuous Positive Airway Pressure (12/24/21) Excision of Left Kidney, Percutaneous Approach, Diagnostic (12/24/21) Fluoroscopy of Superior Vena Cava, Guidance (01/23/22) Insertion of Infusion Device into Superior Vena Cava, Percutaneous Approach (01/23/22) Introduction of Other Thrombolytic into Peripheral Vein, Percutaneous Approach (03/06/22) Performance of Urinary Filtration, Intermittent, Less than 6 Hours Per Day (03/06/22) Transfusion of Nonautologous Red Blood Cells into Peripheral Vein, Percutaneous Approach (01/23/22) Ultrasonography of Superior Vena Cava, Guidance (01/23/22) Labs on day of discharge: Laboratory Results - last 24 hr 02/05/23 02/06/23 02/06/23 19:25 13:47 17:11 POC Glucose 206 H 185 H Respiratory Panel [place] See Note Adenovirus (Rapid PCR) Not Detected B.pert (TEM-PCR) Not Detected B.parapertussis DNA PCR Not Detected C. pneumoniae DNA (PCR) Not Detected Coronavirus OC43 (PCR) Not Detected Coronavirus HKU1 (PCR) Not Detected Coronavirus 229E (PCR) Not Detected Coronavirus NL63 (PCR) Not Detected Human Metapneumovir PCR Not Detected Influenza A (RT-PCR) Not Detected Influenza B (RT-PCR) Not Detected M. pneumoniae (PCR) Not Detected Parainfluenza 1 (PCR) Not Detected Parainfluenza 2 (PCR) Not Detected Parainfluenza 3 (PCR) Not Detected Parainfluenza 4 (PCR) Not Detected RSV (PCR) Not Detected Entero/Rhino (PCR) Not Detected SARS-CoV-2 RNA (RT-PCR) Not Detected 02/06/23 02/07/23 20:58 07:31 POC Glucose 141 H 109 Respiratory Panel [place] Adenovirus (Rapid PCR) B.pert (TEM-PCR) B.parapertussis DNA PCR C. pneumoniae DNA (PCR) Coronavirus OC43 (PCR) Coronavirus HKU1 (PCR) Coronavirus 229E (PCR) Coronavirus NL63 (PCR) Human Metapneumovir PCR Influenza A (RT-PCR) Influenza B (RT-PCR) M. pneumoniae (PCR) Parainfluenza 1 (PCR) Parainfluenza 2 (PCR) Parainfluenza 3 (PCR) Parainfluenza 4 (PCR) RSV (PCR) Entero/Rhino (PCR) SARS-CoV-2 RNA (RT-PCR) Imaging Chest x-ray: Radiologist's impression: ITS Impressions Chest X-Ray 02/05/23 10:47 IMPRESSION: 1. Interval removal of right-sided dialysis catheter. 2. Bilateral low lung volumes. 3. Slight accentuation of pulmonary vasculature. 4. Slight left basilar atelectasis. Abdomen/Pelvis CTA 02/05/23 15:28 IMPRESSION: No aortic aneurysm or aortic dissection. Fleischner guidelines were followed. Chest CTA 02/05/23 15:28 IMPRESSION: No aortic aneurysm or aortic dissection. Fleischner guidelines were followed. Discharge Plan Discharge Anticipated Discharge Date/Time: 02/07/23 09:22 Patient Disposition: Home, Self-Care Discharge Diagnosis: Hypertensive urgency Referrals: Delfina Butler MD [Primary Care Provider] - 1 Week Discharge Medications: New nifedipine 30 mg Tablet Extended Release 24hr 30 mg PO DAILY Qty: 90 0RF Protocol: Hold for SBP< HOLD for SBP < : 90 losartan 25 mg Tablet 25 mg PO DAILY Qty: 90 0RF Protocol: Hold for SBP< HOLD for SBP < : 90 oxycodone 5 mg tablet 5 mg PO Q8H PRN (Reason: pain (scale score 7-10)) Qty: 14 0RF Rx Instructions: Partial Fill upon patient request. metoclopramide HCl 5 mg Tablet 5 mg PO TIDAC PRN (Reason: nausea) Qty: 90 0RF dicyclomine 10 mg Capsule 20 mg PO TIDAC Qty: 240 0RF oxycodone 5 mg Tablet 5 mg PO Q6H PRN (Reason: Pain, Moderate(Pain Scale 4-6)) Qty: 15 0RF Rx Instructions: Partial Fill upon patient request. Continued atorvastatin 80 mg tablet 1 tab PO DAILY loperamide 2 mg capsule 1 cap PO Q6H PRN (Reason: Diarrhea) cyanocobalamin (vitamin B-12) [Vitamin B-12] 1,000 mcg tablet 1 tab PO DAILY pantoprazole 40 mg tablet,delayed release (DR/EC) 1 tab PO DAILY@0630 aspirin 81 mg tablet,chewable 1 tab PO DAILY gabapentin 100 mg capsule 1 cap PO TID insulin lispro 100 unit/mL insulin pen See Protocol subcut TIDAC Protocol: Insulin Correction Scale Less than or equal to 110 ---- Give (units): 0 111 to 150 Give (units): 0 151 to 200 Give (units): 2 201 to 250 Give (units): 4 251 to 300 Give (units): 6 301 to 350 Give (units): 8 Greater than 350 Give (units): 10 Call MD if Blood Glucose > : 350 Rx Instructions: sliding scale cholecalciferol (vitamin D3) [Vitamin D3] 50 mcg (2,000 unit) capsule 1 cap PO DAILY Ozempic 1 mg/dose (2 mg/1.5 mL) pen injector 1 mg SUBCUT SA@0900 insulin glargine [Lantus Solostar U-100 Insulin] 100 unit/mL (3 mL) insulin pen 40 unit subcut DAILY tizanidine 4 mg tablet 1 tab PO TID PRN (Reason: muscle spasm) acetaminophen 500 mg Tablet 500 mg PO Q8H PRN (Reason: Pain) fluoxetine 10 mg capsule 10 mg PO DAILY fluoxetine 20 mg capsule 20 mg PO DAILY sennosides [senna] 8.6 mg tablet 8.6 mg PO DAILY levetiracetam 500 mg tablet 500 mg PO DAILY topiramate 25 mg tablet 25 mg PO DAILY melatonin 3 mg tablet 9 mg PO DAILY PRN (Reason: Sleep) famotidine 20 mg tablet 20 mg PO DAILY calcipotriene 0.005 % cream 1 appl topical BID PRN (Reason: psoriasis) ferrous sulfate 325 mg (65 mg iron) tablet,delayed release (DR/EC) 325 mg PO BID ondansetron 4 mg tablet,disintegrating 4 mg PO Q8H PRN (Reason: Nausea And Vomiting) clotrimazole 1 % Cream 1 appl TOPICAL BID PRN (Reason: skin folds) lactulose 10 gram/15 mL solution 15 ml PO BEDTIME Discontinued amlodipine 10 mg tablet 1 tab PO DAILY dicyclomine 10 mg Capsule 10 mg PO TID PRN (Reason: Spasms) Discharge Orders: Discharge Order (Routine); Ordered 02/11/23 Ordered By: Toby Montero Diet: Low salt diet Activity on Discharge: As tolerated Stand Alone Forms: Patient Portal Discharge page Care Plan Goals: Read below Health Concerns: Read below Plan of Treatment: Read below Assessment: Stop Amlodipine Start Nifedipine and Losartan Follow BP readings at home and report 1 week readings to your occupational medicine physician follow up with gi, bentyl increased, can use regaln and oxy as needed Discharge Date/Time: 02/11/23 11:39
[2023-02-07] MEDS: FLUoxetine HCl 20 MG CAPSULE PO (09:37)
[2023-02-07] MEDS: Simethicone 80 MG TAB.CHEW PO ×4 (09:37→22:08)
[2023-02-07] MEDS: Gabapentin 100 MG CAPSULE PO ×3 (09:37→22:08)
[2023-02-07] MEDS: Aspirin 81 MG TAB.CHEW PO (09:37)
[2023-02-07] MEDS: Ferrous Sulfate 324 MG TABLET.DR PO ×2 (09:37→22:08)
[2023-02-07] MEDS: FLUoxetine HCl 10 MG CAPSULE PO (09:37)
[2023-02-07] MEDS: Cyanocobalamin (Vitamin B-12) 1,000 MCG TABLET 1000 MCG PO (09:38)
[2023-02-07] MEDS: levETIRAcetam 500 MG TABLET PO (09:38)
[2023-02-07] MEDS: Dicyclomine HCl 10 MG CAPSULE PO ×3 (09:38→22:08)
[2023-02-07] MEDS: Famotidine 20 MG TABLET PO (09:38)
[2023-02-07] MEDS: Topiramate 25 MG TABLET PO (09:38)
[2023-02-07] MEDS: Cholecalciferol (Vitamin D3) 25 MCG TABLET 50 MCG PO (09:38)
[2023-02-07] MEDS: Sennosides 8.6 MG TABLET PO (09:38)
[2023-02-07] MEDS: Atorvastatin Calcium 80 MG TABLET PO (09:38)
[2023-02-07] MEDS: NIFEdipine ER 30 MG TAB.ER.24 PO (09:39)
[2023-02-07] MEDS: Insulin Glargine,Hum.rec.anlog 100 UNIT/ML 10 ML VIAL 28 UNIT SUBCUT (09:39)
[2023-02-07] MEDS: Losartan Potassium 25 MG TABLET PO (09:41)
[2023-02-07] MEDS: Ondansetron ODT 4 MG TAB.RAPDIS TRANSLINGU (10:58)
[2023-02-07 11:42] LABS: Glucose, Whole Blood 94 mg/dL (60-115)
--- NOTE | 2023-02-07 12:05 | P.PNIM_ITS ---
Subjective Subjective Date of Service: 02/07/23 Interval History: seen and evaluated reporting nausea and vomiting still having back pain no chest tightness today, blood pressure better controlled feeling weak and has no energy Physical Exam 2 Vital Signs: Vital Signs: Last Vital Signs Temp 98.7 F 02/07/23 07:28 Pulse 89 02/07/23 09:54 Resp 14 02/07/23 09:54 BP 177/74 H 02/07/23 09:54 Pulse Ox 97 02/07/23 09:54 O2 Del Method Room Air 02/07/23 09:54 O2 Flow Rate 2 02/06/23 07:14 BMI result Body Mass Index 41.6 Const: Other: Constitutional : Awake, interactive, not in distress Neck : Normal inspection, Supple Cardiovascular : RRR, no JVP, no lower extremity edema Respiratory : good bilateral air entry, no crackles, wheezes or rhonchi Gastrointestinal: soft, lax, Normal bowel sounds, Non tender Skin : Warm, Dry, LUE dialysis fistula Neurological : Alert & oriented x3, No focal deficit Objective Data Active Medications Acetaminophen (Acetaminophen 325 Mg Tablet) 650 mg PO Q6H PRN PRN Reason: Pain, Mild (Pain Scale 1-3) Aspirin (Aspirin 81 Mg Tab.Chew) 81 mg PO DAILY [facility] Last Admin: 02/07/23 09:37 Dose: 81 mg Documented By: CONRADO Atorvastatin Calcium (Atorvastatin Calcium 80 Mg Tablet) 80 mg PO DAILY [facility] Last Admin: 02/07/23 09:38 Dose: 80 mg Documented By: CONRADO Clotrimazole (Clotrimazole 1 % Cream 15 Gm Tube) 1 appl TOPICAL BID PRN; Protocol PRN Reason: skin folds Cyanocobalamin (Cyanocobalamin (Vitamin B-12) 1,000 Mcg Tablet) 1,000 mcg PO DAILY [facility] Last Admin: 02/07/23 09:38 Dose: 1,000 mcg Documented By: CONRADO Dicyclomine HCl (Dicyclomine Hcl 10 Mg Capsule) 10 mg PO TID [facility] Last Admin: 02/07/23 09:38 Dose: 10 mg Documented By: CONRADO Famotidine (Famotidine 20 Mg Tablet) 20 mg PO DAILY [facility] Last Admin: 02/07/23 09:38 Dose: 20 mg Documented By: CONRADO Ferrous Sulfate (Ferrous Sulfate 324 Mg Tablet.Dr) 324 mg PO BID [facility] Last Admin: 02/07/23 09:37 Dose: 324 mg Documented By: CONRADO Fluoxetine HCl (Fluoxetine Hcl 10 Mg Capsule) 10 mg PO DAILY [facility] Last Admin: 02/07/23 09:37 Dose: 10 mg Documented By: CONRADO Fluoxetine HCl (Fluoxetine Hcl 20 Mg Capsule) 20 mg PO DAILY [facility] Last Admin: 02/07/23 09:37 Dose: 20 mg Documented By: CONRADO Gabapentin (Gabapentin 100 Mg Capsule) 100 mg PO TID [facility] Last Admin: 02/07/23 09:37 Dose: 100 mg Documented By: CONRADO Heparin Sodium (Porcine) (Heparin Sodium,Porcine 5,000 Unit/Ml Vial) 5,000 unit SUBCUT Q12H [facility] Last Admin: 02/07/23 06:23 Dose: 5,000 unit Documented By: ANJELICA Insulin Glargine (Insulin Glargine,Hum.Rec.Anlog 100 Unit/Ml 10 Ml Vial) 28 unit SUBCUT DAILY [facility] Last Admin: 02/07/23 09:39 Dose: 28 unit Documented By: CONRADO Insulin Human Lispro (Insulin Lispro 100 Unit/Ml 3 Ml Vial) 0 unit SUBCUT QIDACHS [facility]; Protocol Last Admin: 02/07/23 08:41 Dose: Not Given Documented By: CONRADO Non-Admin Reason: No Insulin Coverage Lactulose (Lactulose 20 Gm/30 Ml Solution) 10 gm PO BEDTIME [facility] Last Admin: 02/06/23 21:09 Dose: Not Given Documented By: ANJELICA Non-Admin Reason: Patient Refused Levetiracetam (Levetiracetam 500 Mg Tablet) 500 mg PO DAILY [facility] Last Admin: 02/07/23 09:38 Dose: 500 mg Documented By: CONRADO Loperamide HCl (Loperamide Hcl 2 Mg Capsule) 2 mg PO Q6H PRN PRN Reason: Diarrhea Losartan Potassium (Losartan Potassium 25 Mg Tablet) 25 mg PO DAILY [facility]; Protocol Last Admin: 02/07/23 09:41 Dose: 25 mg Documented By: CONRADO Melatonin (Melatonin 3 Mg Tablet) 9 mg PO DAILY PRN PRN Reason: Sleep Metoclopramide HCl (Metoclopramide Hcl 5 Mg Tablet) 5 mg PO TIDAC [facility] Morphine Sulfate (Morphine Sulfate 4 Mg/Ml Cartridge) 2 mg IVPUSH Q4H PRN; Protocol PRN Reason: Pain, Severe (Pain Scale 7-10) Last Admin: 02/07/23 06:28 Dose: 2 mg Documented By: ANJELICA Nifedipine (Nifedipine Er 30 Mg Tab.Er.24) 30 mg PO DAILY [facility]; Protocol Last Admin: 02/07/23 09:39 Dose: 30 mg Documented By: CONRADO Omeprazole (Omeprazole 20 Mg Capsule.Dr) 20 mg PO DAILY@0630 [facility] Last Admin: 02/07/23 06:24 Dose: 20 mg Documented By: ANJELICA Ondansetron HCl (Ondansetron Hcl 4 Mg/2 Ml Vial) 4 mg IVPUSH Q8H PRN PRN Reason: Nausea and Vomiting Last Admin: 02/07/23 06:28 Dose: 4 mg Documented By: ANJELICA Senna (Sennosides 8.6 Mg Tablet) 8.6 mg PO DAILY [facility] Last Admin: 02/07/23 09:38 Dose: 8.6 mg Documented By: CONRADO Simethicone (Simethicone 80 Mg Tab.Chew) 80 mg PO QIDWMHS [facility] Last Admin: 02/07/23 09:37 Dose: 80 mg Documented By: CONRADO Sodium Chloride (0.9 % Sodium Chloride Flush 3 Ml Syringe) 3 ml IVFLUSH QSHIFT [facility] Last Admin: 02/07/23 09:38 Dose: 3 ml Documented By: CONRADO Tizanidine HCl (Tizanidine Hcl 4 Mg Tablet) 4 mg PO TID PRN PRN Reason: muscle spasm Topiramate (Topiramate 25 Mg Tablet) 25 mg PO DAILY [facility] Last Admin: 02/07/23 09:38 Dose: 25 mg Documented By: CONRADO Vitamin D (Cholecalciferol (Vitamin D3) 25 Mcg Tablet) 50 mcg PO DAILY [facility] Last Admin: 02/07/23 09:38 Dose: 50 mcg Documented By: CONRADO Labs 02/05/23 11:04 02/06/23 06:26 Labs: Laboratory Results - last 24 hr 02/06/23 02/06/23 02/06/23 13:47 17:11 20:58 POC Glucose 206 H 185 H 141 H 02/07/23 02/07/23 07:31 11:35 POC Glucose 109 94 Assessment and Plan (1) Hypertensive urgency: Status: Acute (2) ESRD (end stage renal disease): Status: Acute (3) Nausea & vomiting: Status: Acute Plan A 57 years old lady with PMH of ESRD on HD, HTN, HLD, DM among others who presents to the hospital from HD center with AMS and elevated BP readings. Chest pain Likely a result of hypertensive urgency and musckoskeletal pain EKG w no changes of ST\T-wave to suggest ACS Negative trop keep on tele, repeat EKG for pain Hypertensive urgency Improved Change Amlodipine to Nifedipine Losartan monitor BP Nausea and vomiting negative viral panel Reglan , could be gastroparesis, gastritis get GI eval ESRD on HD Nephrology to follow TTS DVT PPx Heparin The patient will likely need overnight hospital stay for control of BP and need of HD. Time Spent With Patient Time: Total time managing care of this patient today ____ minutes. Quality Stroke Does the patient have a stroke diagnosis?: No VTE Prior VTE?: No VTE Risk Level:: Medical - moderate - high VTE Device Contraindication: Treatment Not Indicated VTE Drug Contraindication: N/A - Med Ordered
--- NOTE | 2023-02-07 12:43 | PC.NURSE ---
HOSP AT BEDSIDE EARLIER. PT TO BE ADMITTED. PT ATE HALF OF A CHEESEBURGER AND SOME JUICE.
[2023-02-07] MEDS: Metoclopramide HCl 5 MG TABLET PO ×2 (13:23→16:48)
--- NOTE | 2023-02-07 13:35 | PC.NURSE ---
INFORMATION SYSTEM[employer] SECURITY DEVELOPER CALLED FOR AN UPDATED ON PT. PT IS AWARE.
--- NOTE | 2023-02-07 15:38 | PC.NURSE ---
this RN took over care tat his time. vss and up to date. nsr on the library monitor. pt currently c/o 8/10 pain despite medication administration. lung sounds clear throughout. positive thrill/bruit noted upon palpation/auscultation to left extremity. pt currently resting in no apparent distress. respirations even and unlabored. call dean placed within reach.
[2023-02-07 16:30] LABS: Glucose, Whole Blood 99 mg/dL (60-115)
--- NOTE | 2023-02-07 16:49 | PC.NURSE ---
pt medicated per provider order. resting comfortably w/ the lights dimmed. call dean within reach.
--- NOTE | 2023-02-07 17:19 | PC.NURSE ---
this RN attempted to give report to admitting RN - nurse unavailable at this time. will attempt again shortly.
--- NOTE | 2023-02-07 17:35 | PC.NURSE ---
report given to RN on [employer] - tech currently transporting pt upstairs at this time.
[2023-02-07 20:50] LABS: Glucose, Whole Blood 101 mg/dL (60-115)
[2023-02-08] VITALS (7 sets, daily range): BP systolic 119–169; BP diastolic 57–85; PULSE 68–80; RESP 14–20; TEMP 36.1–36.8; O2SAT 94–98
[2023-02-08] MEDS: Morphine Sulfate 4 MG/ML CARTRIDGE 2 MG IVPUSH ×4 (06:38→21:28)
[2023-02-08] MEDS: Omeprazole 20 MG CAPSULE.DR PO (06:39)
[2023-02-08] MEDS: Heparin Sodium,Porcine 5,000 UNIT/ML VIAL 5000 UNIT SUBCUT ×2 (06:39→17:56)
[2023-02-08 07:19] LABS: Glucose, Whole Blood 73 mg/dL (60-115)
[2023-02-08 07:27] LABS: Anion Gap 16 (12-20); Blood Urea Nitrogen 25 mg/dL (9-16); Calcium 8.9 mg/dL (8.4-10.2); Carbon Dioxide 26 mmol/L (22-29); Chloride 99 mmol/L (96-108); Creatinine Clr Calc Pharmacy 10.5; Estimated Glomerular Filt Rate 7; Glucose Random 66 mg/dL (60-115); Sodium 137 mmol/L (135-145)
[2023-02-08] MEDS: Metoclopramide HCl 5 MG TABLET PO ×2 (08:46→16:19)
[2023-02-08] MEDS: Simethicone 80 MG TAB.CHEW PO ×3 (08:49→20:13)
[2023-02-08] MEDS: 0.9 % Sodium Chloride Flush 3 ML SYRINGE IVFLUSH ×2 (08:50→16:27)
[2023-02-08 11:12] LABS: Glucose, Whole Blood 109 mg/dL (60-115)
[2023-02-08] MEDS: ondansetron HCL 4 MG/2 ML VIAL IVPUSH ×2 (12:27→21:29)
[2023-02-08 14:26] LABS: Glucose, Whole Blood 102 mg/dL (60-115)
--- NOTE | 2023-02-08 14:32 | HO.PM.IMPN ---
Subjective Subjective Date of Service: 02/08/23 Interval History: seen and evaluated still reporting nausea and vomiting complaining of back pain which is chronic no chest tightness today, blood pressure better controlled feeling weak and has no energy Review of Systems Review of Systems: Yes all other systems are reviewed and are negative Physical Exam Vital Signs: Vital Signs: Last Vital Signs Temp 97.9 F 02/08/23 11:02 Pulse 76 02/08/23 11:02 Resp 20 02/08/23 11:02 BP 154/85 H 02/08/23 11:02 Pulse Ox 95 02/08/23 11:02 O2 Del Method Room Air 02/08/23 11:02 O2 Flow Rate 2 02/06/23 07:14 BMI result Body Mass Index 40.9 Const: Other: Constitutional : Awake, interactive, not in distress Neck : Normal inspection, Supple Cardiovascular : RRR, no JVP, no lower extremity edema Respiratory : good bilateral air entry, no crackles, wheezes or rhonchi Gastrointestinal: soft, lax, Normal bowel sounds, Non tender Skin : Warm, Dry, LUE dialysis fistula Neurological : Alert & oriented x3, No focal deficit Objective Data Active Medications Acetaminophen (Acetaminophen 325 Mg Tablet) 650 mg PO Q6H PRN PRN Reason: Pain, Mild (Pain Scale 1-3) Aspirin (Aspirin 81 Mg Tab.Chew) 81 mg PO DAILY [facility] Last Admin: 02/08/23 09:30 Dose: Not Given Documented By: RENETTA Non-Admin Reason: Off unit: Dialysis Atorvastatin Calcium (Atorvastatin Calcium 80 Mg Tablet) 80 mg PO DAILY [facility] Last Admin: 02/08/23 09:30 Dose: Not Given Documented By: RENETTA Non-Admin Reason: Off unit: Dialysis Clotrimazole (Clotrimazole 1 % Cream 15 Gm Tube) 1 appl TOPICAL BID PRN; Protocol PRN Reason: skin folds Cyanocobalamin (Cyanocobalamin (Vitamin B-12) 1,000 Mcg Tablet) 1,000 mcg PO DAILY [facility] Last Admin: 02/08/23 09:30 Dose: Not Given Documented By: RENETTA Non-Admin Reason: Off unit: Dialysis Dicyclomine HCl (Dicyclomine Hcl 10 Mg Capsule) 10 mg PO TID [facility] Last Admin: 02/08/23 09:30 Dose: Not Given Documented By: RENETTA Non-Admin Reason: Off unit: Dialysis Famotidine (Famotidine 20 Mg Tablet) 20 mg PO DAILY [facility] Last Admin: 02/08/23 09:30 Dose: Not Given Documented By: RENETTA Non-Admin Reason: Off unit: Dialysis Ferrous Sulfate (Ferrous Sulfate 324 Mg Tablet.Dr) 324 mg PO BID [facility] Last Admin: 02/08/23 09:30 Dose: Not Given Documented By: RENETTA Non-Admin Reason: Off unit: Dialysis Fluoxetine HCl (Fluoxetine Hcl 10 Mg Capsule) 10 mg PO DAILY [facility] Last Admin: 02/08/23 09:52 Dose: Not Given Documented By: RENETTA Non-Admin Reason: Off unit: Dialysis Fluoxetine HCl (Fluoxetine Hcl 20 Mg Capsule) 20 mg PO DAILY [facility] Last Admin: 02/08/23 09:52 Dose: Not Given Documented By: RENETTA Non-Admin Reason: Off unit: Dialysis Gabapentin (Gabapentin 100 Mg Capsule) 100 mg PO TID [facility] Last Admin: 02/08/23 09:52 Dose: Not Given Documented By: RENETTA Non-Admin Reason: Off unit: Dialysis Heparin Sodium (Porcine) (Heparin Sodium,Porcine 5,000 Unit/Ml Vial) 5,000 unit SUBCUT Q12H [facility] Last Admin: 02/08/23 06:39 Dose: 5,000 unit Documented By: PAUL Insulin Glargine (Insulin Glargine,Hum.Rec.Anlog 100 Unit/Ml 10 Ml Vial) 28 unit SUBCUT DAILY [facility] Last Admin: 02/08/23 09:52 Dose: Not Given Documented By: RENETTA Non-Admin Reason: Off unit: Dialysis Insulin Human Lispro (Insulin Lispro 100 Unit/Ml 3 Ml Vial) 0 unit SUBCUT QIDACHS [facility]; Protocol Last Admin: 02/08/23 11:18 Dose: Not Given Documented By: RENETTA Non-Admin Reason: No Insulin Coverage Lactulose (Lactulose 20 Gm/30 Ml Solution) 10 gm PO BEDTIME [facility] Last Admin: 02/07/23 22:09 Dose: Not Given Documented By: PAUL Non-Admin Reason: Patient Refused Levetiracetam (Levetiracetam 500 Mg Tablet) 500 mg PO DAILY [facility] Last Admin: 02/08/23 09:52 Dose: Not Given Documented By: RENETTA Non-Admin Reason: Off unit: Dialysis Loperamide HCl (Loperamide Hcl 2 Mg Capsule) 2 mg PO Q6H PRN PRN Reason: Diarrhea Losartan Potassium (Losartan Potassium 25 Mg Tablet) 25 mg PO DAILY [facility]; Protocol Last Admin: 02/08/23 09:52 Dose: Not Given Documented By: RENETTA Non-Admin Reason: Off unit: Dialysis Melatonin (Melatonin 3 Mg Tablet) 9 mg PO DAILY PRN PRN Reason: Sleep Metoclopramide HCl (Metoclopramide Hcl 5 Mg Tablet) 5 mg PO TIDAC [facility] Last Admin: 02/08/23 11:18 Dose: Not Given Documented By: RENETTA Non-Admin Reason: No Insulin Coverage Morphine Sulfate (Morphine Sulfate 4 Mg/Ml Cartridge) 2 mg IVPUSH Q4H PRN; Protocol PRN Reason: Pain, Severe (Pain Scale 7-10) Last Admin: 02/08/23 10:49 Dose: 2 mg Documented By: RENETTA Nifedipine (Nifedipine Er 30 Mg Tab.Er.24) 30 mg PO DAILY [facility]; Protocol Last Admin: 02/08/23 09:52 Dose: Not Given Documented By: RENETTA Non-Admin Reason: Off unit: Dialysis Omeprazole (Omeprazole 20 Mg Capsule.) 20 mg PO DAILY@0630 [facility] Last Admin: 02/08/23 06:39 Dose: 20 mg Documented By: PAUL Ondansetron HCl (Ondansetron Hcl 4 Mg/2 Ml Vial) 4 mg IVPUSH Q8H PRN PRN Reason: Nausea and Vomiting Last Admin: 02/08/23 12:27 Dose: 4 mg Documented By: RENETTA Senna (Sennosides 8.6 Mg Tablet) 8.6 mg PO DAILY [facility] Last Admin: 02/08/23 09:52 Dose: Not Given Documented By: RENETTA Non-Admin Reason: Off unit: Dialysis Simethicone (Simethicone 80 Mg Tab.Chew) 80 mg PO QIDWMHS [facility] Last Admin: 02/08/23 12:05 Dose: Not Given Documented By: RENETTA Non-Admin Reason: Off unit: Dialysis Sodium Chloride (0.9 % Sodium Chloride Flush 3 Ml Syringe) 3 ml IVFLUSH QSHIFT [facility] Last Admin: 02/08/23 08:50 Dose: 3 ml Documented By: RENETTA Tizanidine HCl (Tizanidine Hcl 4 Mg Tablet) 4 mg PO TID PRN PRN Reason: muscle spasm Topiramate (Topiramate 25 Mg Tablet) 25 mg PO DAILY [facility] Last Admin: 02/08/23 09:52 Dose: Not Given Documented By: RENETTA Non-Admin Reason: Off unit: Dialysis Vitamin D (Cholecalciferol (Vitamin D3) 25 Mcg Tablet) 50 mcg PO DAILY [facility] Last Admin: 02/08/23 09:30 Dose: Not Given Documented By: RENETTA Non-Admin Reason: Off unit: Dialysis Labs 02/05/23 11:04 02/08/23 06:09 Labs: Laboratory Results - last 24 hr 02/07/23 02/07/23 02/08/23 16:18 20:31 06:09 Hold Purple Top SEE NOTE Anion Gap 16 Estim Creat Clear Calc 10.5 Estimated GFR 7 POC Glucose 99 101 Random Glucose 66 Calcium 8.9 02/08/23 02/08/23 02/08/23 07:09 11:04 14:21 Hold Purple Top Anion Gap Estim Creat Clear Calc Estimated GFR POC Glucose 73 109 102 Random Glucose Calcium Assessment and Plan (1) Nausea & vomiting: Status: Acute (2) ESRD (end stage renal disease): Status: Acute Plan A 57 years old lady with PMH of ESRD on HD, HTN, HLD, DM among others who presents to the hospital from HD center with AMS and elevated BP readings. Chest pain Likely a result of hypertensive urgency and musckoskeletal pain EKG w no changes of ST\T-wave to suggest ACS Negative trop keep on tele, repeat EKG for pain Hypertensive urgency Improved Change Amlodipine to Nifedipine Losartan monitor BP Nausea and vomiting could be gastroparesis, gastritis negative viral panel Reglan PPO Pending GI eval ESRD on HD Nephrology following Dialysis today, TTS DVT PPx Heparin The patient will likely need overnight hospital stay for control of BP and need of HD. Time Spent With Patient Time: Total time managing care of this patient today ____ minutes. Quality Stroke Does the patient have a stroke diagnosis?: No VTE Prior VTE?: No VTE Risk Level:: Medical - moderate - high VTE Device Contraindication: Treatment Not Indicated VTE Drug Contraindication: N/A - Med Ordered
--- NOTE | 2023-02-08 15:25 | PC.NURSE ---
PRN morphine dose given 30 minutes early with MDs approval. Patient C/O 10/10 lower back and chest cramping during dialysis. all vitals within normal limits pt denies any other symptoms. MD notified. no new orders at this time.
--- NOTE | 2023-02-08 16:15 | PM.EVENT ---
Event Note Date of Service: 02/08/23 Event Note: GI consult dictated Rec: increase omeprazole to 40 mg daily and add dicyclomine for abd discomfort. she can f/u with regular GI providers as an outpatient Time Spent With Patient Time: Total time managing care of this patient today ____ minutes.
[2023-02-08] MEDS: Gabapentin 100 MG CAPSULE PO ×2 (16:19→20:13)
[2023-02-08] MEDS: Dicyclomine HCl 10 MG CAPSULE PO (16:19)
[2023-02-08 16:32] LABS: Glucose, Whole Blood 96 mg/dL (60-115)
[2023-02-08 19:40] LABS: Glucose, Whole Blood 117 mg/dL (60-115)
[2023-02-08] MEDS: Lactulose 20 GM/30 ML SOLUTION 10 GM PO (20:12)
[2023-02-08] MEDS: Ferrous Sulfate 324 MG TABLET.DR PO (20:13)
--- NOTE | 2023-02-08 21:58 | PM.PNNEP ---
Subjective Subjective Date of Service: 02/08/23 Interval history: seen and evaluated on HD c/o nausea and vomiting Physical Exam Vital Signs: Vital Signs: Last Vital Signs Temp 97.8 F 02/08/23 18:59 Pulse 76 02/08/23 18:59 Resp 18 02/08/23 18:59 BP 119/57 L 02/08/23 18:59 Pulse Ox 98 02/08/23 18:59 O2 Del Method Room Air 02/08/23 18:59 O2 Flow Rate 2 02/06/23 07:14 BMI result Body Mass Index 40.9 Const: Other: Constitutional : Awake, interactive, not in distress Neck : Normal inspection, Supple Cardiovascular : RRR, no JVP, no lower extremity edema Respiratory : good bilateral air entry, no crackles, wheezes or rhonchi Gastrointestinal: soft, lax, Normal bowel sounds, Non tender Skin : Warm, Dry, LUE dialysis fistula Neurological : Alert & oriented x3, No focal deficit Objective Data Labs 02/05/23 11:04 02/08/23 06:09 Labs: Laboratory Results - last 24 hr 02/08/23 02/08/23 02/08/23 06:09 07:09 11:04 Hold Purple Top SEE NOTE Sodium 137 Potassium 4.0 Chloride 99 Carbon Dioxide 26 Anion Gap 16 BUN 25 H Creatinine 6.29 H* Estim Creat Clear Calc 10.5 Estimated GFR 7 POC Glucose 73 109 Random Glucose 66 Calcium 8.9 02/08/23 02/08/23 02/08/23 14:21 16:25 19:34 Hold Purple Top Sodium Potassium Chloride Carbon Dioxide Anion Gap BUN Creatinine Estim Creat Clear Calc Estimated GFR POC Glucose 102 96 117 H Random Glucose Calcium Procedures Date of Service Date of Service: 02/08/23 Assessment & Plan Assessment and plan (1) ESRD (end stage renal disease): Status: Acute Assessment and Plan: ESKD due to diabetic nephropathy (biopsy proven) followed by Dr Ocasio usually has HD at [facility] tts1 via [facility] presented with hypertensive emergency- Better nephrogenic anemia REC GI f/u re Nausea HD per schedule- Continue Hd today renal diet retacrit phosphate binders (2) Nausea & vomiting: Status: Acute Time Spent With Patient Time: Total time managing care of this patient today ____ minutes. Progress Note: Quality Stroke Does the patient have a stroke diagnosis?: No
--- NOTE | 2023-02-08 22:12 | CONS_ITS ---
DATE OF SERVICE: 02/08/2023 REFERRING PHYSICIAN: Frida Bee MD REASON FOR CONSULTATION: Nausea and vomiting with abdominal pain. HISTORY OF PRESENT ILLNESS: The patient is a pleasant 57-year-old woman, who was admitted to the hospital on February 05, with a change in mental status and elevated blood pressure readings. Consultation is requested regarding the patient's abdominal pain, nausea and vomiting. The patient describes back pain, radiating around under both sides of her ribcage for last 3 months. This has been associated with some nausea and nonbloody emesis. She does have a history of gastroesophageal reflux disease and has been on omeprazole 20 mg daily. She recalls undergoing upper endoscopy and colonoscopy within the past year in [place], which were both unremarkable by her report. She has no dysphagia, hematemesis, or melena and does not note that certain foods seem to bother her reflux. The pain she describes as a twisting type of pain, not clearly related to bowel movements. As part of her evaluation, she has had laboratory studies showing anemia, consistent with her kidney disease. Chemistries have shown elevated BUN and creatinine, but liver function tests have been normal. On admission, she had imaging with an abdominal pelvis CT angiogram, which is reviewed. This showed no aortic aneurysm or dissection. Her GI tract was unremarkable as were the liver and pancreas. MEDICAL HISTORY: 1. Chronic renal failure. 2. Hypertension. 3. Hyperlipidemia. 4. Diabetes mellitus. 5. Back pain. 6. Sleep apnea. 7. Hypertension. 8. Hyperlipidemia. 9. Hearing impaired. 10. CVA. CURRENT MEDICATIONS: Her current medication list is reviewed in the chart. Notably, she is on dicyclomine 10 mg 3 times daily and omeprazole 20 mg daily, as well as Pepcid in the evening. ALLERGIES: MULTIPLE MEDICATION ALLERGIES REVIEWED. FAMILY HISTORY: This is reviewed with the patient and is noncontributory. SOCIAL HISTORY: There is no current tobacco, alcohol, or substance abuse. REVIEW OF SYSTEMS: SKIN: No pruritus. HEENT: Negative. CARDIOPULMONARY: She denies shortness of breath or chest pain. GASTROINTESTINAL: As above. GENITOURINARY: Negative. NEUROPSYCHIATRIC: Negative. PHYSICAL EXAMINATION: GENERAL: Shows a pleasant female, lying comfortably in bed. VITAL SIGNS: Reviewed in electronic medical record and are stable. SKIN: Anicteric. HEENT: Shows no scleral icterus. NECK: Without lymphadenopathy or thyromegaly. LUNGS: Clear. HEART: Shows a regular rate and rhythm. S1, S2. No murmur. ABDOMEN: Soft. Bowel sounds are present. There is no guarding or rebound. No masses are palpable. EXTREMITIES: Without edema. LABORATORY DATA AND IMAGING STUDIES: Reviewed. IMPRESSION: 1. Nausea and vomiting. 2. Abdominal pain. Her abdominal pain may be related to functional issues such as irritable bowel syndrome and I would recommend increasing her dicyclomine to 20 mg 3 times daily. Because of her nausea and vomiting, which could be related to atypical reflux, I would also increase her omeprazole to 40 mg daily and continue her p.m. famotidine. Ultrasound imaging could be considered as her gallbladder should be evaluated at some point for gallstones, if this has not been done recently. I do not think she needs endoscopy at this time as her endoscopy was reportedly done within the past year. I have recommended that she follow up as an outpatient with her primary GI providers. Thanks for asking me to see her. I will follow her in the hospital with you. MD KEVIN Barrios/ODILON / [phone]
[2023-02-09] VITALS (9 sets, daily range): BP systolic 124–135; BP diastolic 56–63; PULSE 74–84; RESP 14–20; TEMP 36.1–36.9; O2SAT 93–97
[2023-02-09] MEDS: Heparin Sodium,Porcine 5,000 UNIT/ML VIAL 5000 UNIT SUBCUT ×2 (06:26→16:57)
[2023-02-09] MEDS: Morphine Sulfate 4 MG/ML CARTRIDGE 2 MG IVPUSH ×3 (06:26→21:35)
[2023-02-09] MEDS: ondansetron HCL 4 MG/2 ML VIAL IVPUSH ×3 (06:46→23:26)
[2023-02-09 07:40] LABS: Glucose, Whole Blood 103 mg/dL (60-115)
[2023-02-09] MEDS: Famotidine 20 MG TABLET PO (09:06)
[2023-02-09] MEDS: Atorvastatin Calcium 80 MG TABLET PO (09:06)
[2023-02-09] MEDS: Gabapentin 100 MG CAPSULE PO ×3 (09:06→21:28)
[2023-02-09] MEDS: levETIRAcetam 500 MG TABLET PO (09:06)
[2023-02-09] MEDS: Simethicone 80 MG TAB.CHEW PO ×4 (09:07→21:28)
[2023-02-09] MEDS: Topiramate 25 MG TABLET PO (09:07)
[2023-02-09] MEDS: FLUoxetine HCl 20 MG CAPSULE PO (09:07)
[2023-02-09] MEDS: Metoclopramide HCl 5 MG TABLET PO ×3 (09:07→16:56)
[2023-02-09] MEDS: Losartan Potassium 25 MG TABLET PO (09:07)
[2023-02-09] MEDS: Cyanocobalamin (Vitamin B-12) 1,000 MCG TABLET 1000 MCG PO (09:07)
[2023-02-09] MEDS: Sennosides 8.6 MG TABLET PO (09:07)
[2023-02-09] MEDS: Ferrous Sulfate 324 MG TABLET.DR PO ×2 (09:08→21:28)
[2023-02-09] MEDS: NIFEdipine ER 30 MG TAB.ER.24 PO (09:08)
[2023-02-09] MEDS: Aspirin 81 MG TAB.CHEW PO (09:08)
[2023-02-09] MEDS: FLUoxetine HCl 10 MG CAPSULE PO (09:08)
[2023-02-09] MEDS: Dicyclomine HCl 10 MG CAPSULE 20 MG PO ×3 (09:08→16:57)
[2023-02-09] MEDS: Cholecalciferol (Vitamin D3) 25 MCG TABLET 50 MCG PO (09:09)
[2023-02-09] MEDS: 0.9 % Sodium Chloride Flush 3 ML SYRINGE IVFLUSH ×4 (09:12→23:26)
--- NOTE | 2023-02-09 10:20 | MHC.CM.PN ---
Per ROUNDS discussion, Patient is not yet medically cleared for dc (required IV Morphine for pain today); home is the goal and CM will continue to follow.
--- NOTE | 2023-02-09 10:26 | P.PNIM_ITS ---
Subjective Subjective Date of Service: 02/09/23 Interval History: abd pain Physical Exam 2 Vital Signs: Vital Signs: Last Vital Signs Temp 97.0 F 02/09/23 07:20 Pulse 76 02/09/23 07:20 Resp 20 02/09/23 07:20 BP 135/63 02/09/23 07:20 Pulse Ox 96 02/09/23 07:20 O2 Del Method Room Air 02/09/23 07:20 O2 Flow Rate 2 02/06/23 07:14 BMI result Body Mass Index 40.9 Const: Other: Constitutional : Awake, interactive, not in distress Neck : Normal inspection, Supple Cardiovascular : RRR, no JVP, no lower extremity edema Respiratory : good bilateral air entry, no crackles, wheezes or rhonchi Gastrointestinal: soft, lax, Normal bowel sounds, Non tender Skin : Warm, Dry, LUE dialysis fistula Neurological : Alert & oriented x3, No focal deficit Objective Data Active Medications Acetaminophen (Acetaminophen 325 Mg Tablet) 650 mg PO Q6H PRN PRN Reason: Pain, Mild (Pain Scale 1-3) Aspirin (Aspirin 81 Mg Tab.Chew) 81 mg PO DAILY [facility] Last Admin: 02/09/23 09:08 Dose: 81 mg Documented By: RENETTA Atorvastatin Calcium (Atorvastatin Calcium 80 Mg Tablet) 80 mg PO DAILY [facility] Last Admin: 02/09/23 09:06 Dose: 80 mg Documented By: RENETTA Clotrimazole (Clotrimazole 1 % Cream 15 Gm Tube) 1 appl TOPICAL BID PRN; Protocol PRN Reason: skin folds Cyanocobalamin (Cyanocobalamin (Vitamin B-12) 1,000 Mcg Tablet) 1,000 mcg PO DAILY [facility] Last Admin: 02/09/23 09:07 Dose: 1,000 mcg Documented By: RENETTA Dicyclomine HCl (Dicyclomine Hcl 10 Mg Capsule) 20 mg PO TIDAC [facility] Last Admin: 02/09/23 09:08 Dose: 20 mg Documented By: RENETTA Famotidine (Famotidine 20 Mg Tablet) 20 mg PO DAILY [facility] Last Admin: 02/09/23 09:06 Dose: 20 mg Documented By: RENETTA Ferrous Sulfate (Ferrous Sulfate 324 Mg Tablet.) 324 mg PO BID [facility] Last Admin: 02/09/23 09:08 Dose: 324 mg Documented By: RENETTA Fluoxetine HCl (Fluoxetine Hcl 10 Mg Capsule) 10 mg PO DAILY [facility] Last Admin: 02/09/23 09:08 Dose: 10 mg Documented By: RENETTA Fluoxetine HCl (Fluoxetine Hcl 20 Mg Capsule) 20 mg PO DAILY [facility] Last Admin: 02/09/23 09:07 Dose: 20 mg Documented By: RENETTA Gabapentin (Gabapentin 100 Mg Capsule) 100 mg PO TID [facility] Last Admin: 02/09/23 09:06 Dose: 100 mg Documented By: RENETTA Heparin Sodium (Porcine) (Heparin Sodium,Porcine 5,000 Unit/Ml Vial) 5,000 unit SUBCUT Q12H [facility] Last Admin: 02/09/23 06:26 Dose: 5,000 unit Documented By: PAUL Insulin Glargine (Insulin Glargine,Hum.Rec.Anlog 100 Unit/Ml 10 Ml Vial) 28 unit SUBCUT DAILY [facility] Last Admin: 02/09/23 09:13 Dose: Not Given Documented By: RENETTA Non-Admin Reason: No Insulin Coverage Insulin Human Lispro (Insulin Lispro 100 Unit/Ml 3 Ml Vial) 0 unit SUBCUT QIDACHS [facility]; Protocol Last Admin: 02/09/23 07:40 Dose: Not Given Documented By: RENETTA Non-Admin Reason: No Insulin Coverage Lactulose (Lactulose 20 Gm/30 Ml Solution) 10 gm PO BEDTIME [facility] Last Admin: 02/08/23 20:12 Dose: 10 gm Documented By: PALU Levetiracetam (Levetiracetam 500 Mg Tablet) 500 mg PO DAILY [facility] Last Admin: 02/09/23 09:06 Dose: 500 mg Documented By: RENETTA Loperamide HCl (Loperamide Hcl 2 Mg Capsule) 2 mg PO Q6H PRN PRN Reason: Diarrhea Losartan Potassium (Losartan Potassium 25 Mg Tablet) 25 mg PO DAILY [facility]; Protocol Last Admin: 02/09/23 09:07 Dose: 25 mg Documented By: RENETTA Melatonin (Melatonin 3 Mg Tablet) 9 mg PO DAILY PRN PRN Reason: Sleep Metoclopramide HCl (Metoclopramide Hcl 5 Mg Tablet) 5 mg PO TIDAC [facility] Last Admin: 02/09/23 09:07 Dose: 5 mg Documented By: RENETTA Morphine Sulfate (Morphine Sulfate 4 Mg/Ml Cartridge) 2 mg IVPUSH Q4H PRN; Protocol PRN Reason: Pain, Severe (Pain Scale 7-10) Last Admin: 02/09/23 06:26 Dose: 2 mg Documented By: PAUL Nifedipine (Nifedipine Er 30 Mg Tab.Er.24) 30 mg PO DAILY [facility]; Protocol Last Admin: 02/09/23 09:08 Dose: 30 mg Documented By: RENETTA Omeprazole (Omeprazole 40 Mg Capsule.Dr) 40 mg PO DAILY@30 [facility] Ondansetron HCl (Ondansetron Hcl 4 Mg/2 Ml Vial) 4 mg IVPUSH Q8H PRN PRN Reason: Nausea and Vomiting Last Admin: 02/09/23 06:46 Dose: 4 mg Documented By: PAUL Senna (Sennosides 8.6 Mg Tablet) 8.6 mg PO DAILY [facility] Last Admin: 02/09/23 09:07 Dose: 8.6 mg Documented By: RENETTA Simethicone (Simethicone 80 Mg Tab.Chew) 80 mg PO QIDWMHS [facility] Last Admin: 02/09/23 09:07 Dose: 80 mg Documented By: RENETTA Sodium Chloride (0.9 % Sodium Chloride Flush 3 Ml Syringe) 3 ml IVFLUSH QSHIFT [facility] Last Admin: 02/09/23 09:12 Dose: 3 ml Documented By: RENETTA Tizanidine HCl (Tizanidine Hcl 4 Mg Tablet) 4 mg PO TID PRN PRN Reason: muscle spasm Topiramate (Topiramate 25 Mg Tablet) 25 mg PO DAILY [facility] Last Admin: 02/09/23 09:07 Dose: 25 mg Documented By: RENETTA Vitamin D (Cholecalciferol (Vitamin D3) 25 Mcg Tablet) 50 mcg PO DAILY [facility] Last Admin: 02/09/23 09:09 Dose: 50 mcg Documented By: RENETTA Labs 02/05/23 11:04 02/08/23 06:09 Labs: Laboratory Results - last 24 hr 02/08/23 02/08/23 02/08/23 11:04 14:21 16:25 POC Glucose 109 102 96 02/08/23 02/09/23 19:34 07:23 POC Glucose 117 H 103 Assessment and Plan (1) Nausea & vomiting: Status: Acute (2) ESRD (end stage renal disease): Status: Acute Plan A 57 years old lady with PMH of ESRD on HD, HTN, HLD, DM among others who presents to the hospital from HD center with AMS and elevated BP readings. Chest pain Likely a result of hypertensive urgency and musckoskeletal pain EKG w no changes of ST\T-wave to suggest ACS Negative trop keep on tele, repeat EKG for pain Hypertensive urgency Improved Changed Amlodipine to Nifedipine Losartan monitor BP Nausea and vomiting could be gastroparesis, gastritis negative viral panel Reglan PPO Pending GI eval ESRD on HD Nephrology following Dialysis today, TTS DVT PPx Heparin reason for continued hospitalization:ongoing pain Time Spent With Patient Time: Total time managing care of this patient today ____ minutes. Quality Stroke Does the patient have a stroke diagnosis?: No VTE Prior VTE?: No VTE Risk Level:: Medical - moderate - high VTE Device Contraindication: Treatment Not Indicated VTE Drug Contraindication: N/A - Med Ordered
[2023-02-09 11:06] LABS: Glucose, Whole Blood 154 mg/dL (60-115)
[2023-02-09] MEDS: Insulin Lispro 100 UNIT/ML 3 ML VIAL SUBCUT ×2 (11:42→21:28)
[2023-02-09 16:39] LABS: Glucose, Whole Blood 134 mg/dL (60-115)
[2023-02-09 20:44] LABS: Glucose, Whole Blood 159 mg/dL (60-115)
[2023-02-09] MEDS: Lactulose 20 GM/30 ML SOLUTION 10 GM PO (21:29)
--- NOTE | 2023-02-09 22:06 | P.PNNP_ITS ---
Subjective Subjective Date of Service: 02/09/23 Interval history: pt c/o Nausea Improved Physical Exam 2 Vital Signs: Vital Signs: Last Vital Signs Temp 97.4 F 02/09/23 19:46 Pulse 74 02/09/23 19:46 Resp 20 02/09/23 19:46 BP 135/63 02/09/23 19:46 Pulse Ox 97 02/09/23 19:46 O2 Del Method Room Air 02/09/23 19:46 O2 Flow Rate 2 02/06/23 07:14 BMI result Body Mass Index 40.9 Const: Other: Constitutional : Awake, interactive, not in distress Neck : Normal inspection, Supple Cardiovascular : RRR, no JVP, no lower extremity edema Respiratory : good bilateral air entry, no crackles, wheezes or rhonchi Gastrointestinal: soft, lax, Normal bowel sounds, Non tender Skin : Warm, Dry, LUE dialysis fistula Neurological : Alert & oriented x3, No focal deficit Objective Data Labs 02/05/23 11:04 02/08/23 06:09 Labs: Laboratory Results - last 24 hr 02/09/23 02/09/23 02/09/23 07:23 11:00 16:28 POC Glucose 103 154 H 134 H 02/09/23 20:37 POC Glucose 159 H Procedures Date of Service Date of Service: 02/09/23 Assessment & Plan Assessment and plan (1) ESRD (end stage renal disease): Status: Acute Assessment and Plan: 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 presented with hypertensive emergency- Better nephrogenic anemia REC GI f/u re Nausea HD per schedule-Next HD in AM renal diet retacrit phosphate binders (2) Chronic anemia: Status: Acute (3) Nausea & vomiting: Status: Acute Time Spent With Patient Time: Total time managing care of this patient today ____ minutes. Progress Note: Quality Stroke Does the patient have a stroke diagnosis?: No
[2023-02-10 03:17] VITALS: BP 125/60; PULSE 63; RESP 18; TEMP 36.6; O2SAT 95
[2023-02-10] MEDS: Heparin Sodium,Porcine 5,000 UNIT/ML VIAL 5000 UNIT SUBCUT ×2 (05:45→17:24)
[2023-02-10] MEDS: Omeprazole 40 MG CAPSULE.DR PO (05:46)
[2023-02-10 05:59] LABS: Hematocrit 27.3 % (37.0-47.0); Hemoglobin 9.1 g/dl (12.0-16.0); Mean Corpuscular HGB Conc 33.3 g/dl (31.0-35.0); Mean Corpuscular Hemoglobin 28.9 pg (27.0-33.0); Mean Corpuscular Volume 86.7 fL (80.0-98.0); Mean Platelet Volume 9.5 fL (9.4-12.3); Platelet Count 187 X10*3/uL (160-400); Red Blood Count 3.15 X10*6/uL (4.20-5.50); Red Cell Distribution Width 15.6 % (11.0-16.0); White Blood Count 6.5 X10*3/uL (4.8-10.8)
[2023-02-10 06:13] LABS: Anion Gap 15 (12-20); Blood Urea Nitrogen 30 mg/dL (9-16); Calcium 8.6 mg/dL (8.4-10.2); Carbon Dioxide 22 mmol/L (22-29); Chloride 91 mmol/L (96-108); Creatinine Clr Calc Pharmacy 9.7; Estimated Glomerular Filt Rate 6; Glucose Fasting 123 mg/dL (60-99); Sodium 124 mmol/L (135-145)
[2023-02-10 07:18] VITALS: BP 132/61; PULSE 79; RESP 16; TEMP 36.7; O2SAT 94
[2023-02-10 07:36] LABS: Glucose, Whole Blood 139 mg/dL (60-115)
[2023-02-10] MEDS: Famotidine 20 MG TABLET PO (08:25)
[2023-02-10] MEDS: Dicyclomine HCl 10 MG CAPSULE 20 MG PO ×3 (08:25→17:23)
[2023-02-10] MEDS: FLUoxetine HCl 10 MG CAPSULE PO (08:25)
[2023-02-10] MEDS: Gabapentin 100 MG CAPSULE PO ×2 (08:25→20:55)
[2023-02-10] MEDS: Cholecalciferol (Vitamin D3) 25 MCG TABLET 50 MCG PO (08:25)
[2023-02-10] MEDS: Topiramate 25 MG TABLET PO (08:25)
[2023-02-10] MEDS: Simethicone 80 MG TAB.CHEW PO ×4 (08:25→20:55)
[2023-02-10] MEDS: Sennosides 8.6 MG TABLET PO (08:25)
[2023-02-10] MEDS: Atorvastatin Calcium 80 MG TABLET PO (08:25)
[2023-02-10] MEDS: Ferrous Sulfate 324 MG TABLET.DR PO ×2 (08:25→20:55)
[2023-02-10] MEDS: Metoclopramide HCl 5 MG TABLET PO ×3 (08:25→17:23)
[2023-02-10] MEDS: 0.9 % Sodium Chloride Flush 3 ML SYRINGE IVFLUSH (08:26)
[2023-02-10] MEDS: Aspirin 81 MG TAB.CHEW PO (08:26)
[2023-02-10] MEDS: levETIRAcetam 500 MG TABLET PO (08:26)
[2023-02-10] MEDS: Losartan Potassium 25 MG TABLET PO (08:26)
[2023-02-10] MEDS: NIFEdipine ER 30 MG TAB.ER.24 PO (08:26)
[2023-02-10] MEDS: FLUoxetine HCl 20 MG CAPSULE PO (08:26)
[2023-02-10] MEDS: Cyanocobalamin (Vitamin B-12) 1,000 MCG TABLET 1000 MCG PO (08:26)
[2023-02-10] MEDS: Morphine Sulfate 4 MG/ML CARTRIDGE 2 MG IVPUSH ×2 (08:27→12:07)
[2023-02-10] MEDS: ondansetron HCL 4 MG/2 ML VIAL IVPUSH ×2 (08:33→22:08)
[2023-02-10] MEDS: Insulin Glargine,Hum.rec.anlog 100 UNIT/ML 10 ML VIAL 28 UNIT SUBCUT (08:33)
--- NOTE | 2023-02-10 10:19 | P.CDIM_ITS ---
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 Please review below and update the documentation accordingly. Clinical Indicators: Height: ( ) 5'1 Weight: ( ) 98.1 kg BMI: ( ) 40.9 Other Clinical Notes Supporting Significance of the BMI: If possible, please provide an associated diagnosis related to the abnormal BMI, such as: Overweight Obesity Due to excess calories Obesity Drug induced Obesity Due to other cause Specify the other cause Severe or Morbid Obesity With alveolar hypoventilation Severe or Morbid Obesity Without alveolar hypoventilation BMI is not significant Other (explain)Clinically unable to determine (explain)Thank you, Marisa Read RN Use of terms such as suspected, likely, concern for, or probable (associated with a specific diagnosi s that is being evaluated, monitored, or treated as if it exists) are acceptable and can be coded in the inpatient se tting, when documented at the time of discharge. Please use your independent medical judgment in providing your response. THIS QUERY IS PART OF THE PERMANENT MEDICAL RECORD
[2023-02-10 11:02] LABS: Glucose, Whole Blood 159 mg/dL (60-115)
[2023-02-10 11:27] VITALS: BP 118/59; PULSE 78; RESP 16; TEMP 37.1; O2SAT 93
--- NOTE | 2023-02-10 11:31 | P.PNIM_ITS ---
Subjective Subjective Date of Service: 02/10/23 Interval History: nasuea Physical Exam 2 Vital Signs: Vital Signs: Last Vital Signs Temp 98.7 F 02/10/23 11:27 Pulse 78 02/10/23 11:27 Resp 16 02/10/23 11:27 BP 118/59 L 02/10/23 11:27 Pulse Ox 93 02/10/23 11:27 O2 Del Method Room Air 02/10/23 11:27 O2 Flow Rate 2 02/06/23 07:14 BMI result Body Mass Index 40.9 Const: Other: Constitutional : Awake, interactive, not in distress Neck : Normal inspection, Supple Cardiovascular : RRR, no JVP, no lower extremity edema Respiratory : good bilateral air entry, no crackles, wheezes or rhonchi Gastrointestinal: soft, lax, Normal bowel sounds, Non tender Skin : Warm, Dry, LUE dialysis fistula Neurological : Alert & oriented x3, No focal deficit Objective Data Active Medications Acetaminophen (Acetaminophen 325 Mg Tablet) 650 mg PO Q6H PRN PRN Reason: Pain, Mild (Pain Scale 1-3) Aspirin (Aspirin 81 Mg Tab.Chew) 81 mg PO DAILY [facility] Last Admin: 02/10/23 08:26 Dose: 81 mg Documented By: LIZZIE Atorvastatin Calcium (Atorvastatin Calcium 80 Mg Tablet) 80 mg PO DAILY [facility] Last Admin: 02/10/23 08:25 Dose: 80 mg Documented By: LIZZIE Clotrimazole (Clotrimazole 1 % Cream 15 Gm Tube) 1 appl TOPICAL BID PRN; Protocol PRN Reason: skin folds Cyanocobalamin (Cyanocobalamin (Vitamin B-12) 1,000 Mcg Tablet) 1,000 mcg PO DAILY [facility] Last Admin: 02/10/23 08:26 Dose: 1,000 mcg Documented By: LIZZIE Dicyclomine HCl (Dicyclomine Hcl 10 Mg Capsule) 20 mg PO TIDAC [facility] Last Admin: 02/10/23 08:25 Dose: 20 mg Documented By: LIZZIE Famotidine (Famotidine 20 Mg Tablet) 20 mg PO DAILY [facility] Last Admin: 02/10/23 08:25 Dose: 20 mg Documented By: LIZZIE Ferrous Sulfate (Ferrous Sulfate 324 Mg Tablet.) 324 mg PO BID [facility] Last Admin: 02/10/23 08:25 Dose: 324 mg Documented By: LIZZIE Fluoxetine HCl (Fluoxetine Hcl 10 Mg Capsule) 10 mg PO DAILY [facility] Last Admin: 02/10/23 08:25 Dose: 10 mg Documented By: LIZZIE Fluoxetine HCl (Fluoxetine Hcl 20 Mg Capsule) 20 mg PO DAILY [facility] Last Admin: 02/10/23 08:26 Dose: 20 mg Documented By: LIZZIE Gabapentin (Gabapentin 100 Mg Capsule) 100 mg PO TID [facility] Last Admin: 02/10/23 08:25 Dose: 100 mg Documented By: LIZZIE Heparin Sodium (Porcine) (Heparin Sodium,Porcine 5,000 Unit/Ml Vial) 5,000 unit SUBCUT Q12H [facility] Last Admin: 02/10/23 05:45 Dose: 5,000 unit Documented By: DALTON Insulin Glargine (Insulin Glargine,Hum.Rec.Anlog 100 Unit/Ml 10 Ml Vial) 28 unit SUBCUT DAILY [facility] Last Admin: 02/10/23 08:33 Dose: 28 unit Documented By: LIZZIE Insulin Human Lispro (Insulin Lispro 100 Unit/Ml 3 Ml Vial) 0 unit SUBCUT QIDACHS [facility]; Protocol Last Admin: 02/10/23 08:01 Dose: Not Given Documented By: LIZZIE Non-Admin Reason: No Insulin Coverage Lactulose (Lactulose 20 Gm/30 Ml Solution) 10 gm PO BEDTIME [facility] Last Admin: 02/09/23 21:29 Dose: 10 gm Documented By: DALTON Levetiracetam (Levetiracetam 500 Mg Tablet) 500 mg PO DAILY [facility] Last Admin: 02/10/23 08:26 Dose: 500 mg Documented By: LIZZIE Loperamide HCl (Loperamide Hcl 2 Mg Capsule) 2 mg PO Q6H PRN PRN Reason: Diarrhea Losartan Potassium (Losartan Potassium 25 Mg Tablet) 25 mg PO DAILY [facility]; Protocol Last Admin: 02/10/23 08:26 Dose: 25 mg Documented By: LIZZIE Melatonin (Melatonin 3 Mg Tablet) 9 mg PO DAILY PRN PRN Reason: Sleep Metoclopramide HCl (Metoclopramide Hcl 5 Mg Tablet) 5 mg PO TIDAC [facility] Last Admin: 02/10/23 08:25 Dose: 5 mg Documented By: LIZZIE Morphine Sulfate (Morphine Sulfate 4 Mg/Ml Cartridge) 2 mg IVPUSH Q4H PRN; Protocol PRN Reason: Pain, Severe (Pain Scale 7-10) Last Admin: 02/10/23 08:27 Dose: 2 mg Documented By: LIZZIE Nifedipine (Nifedipine Er 30 Mg Tab.Er.24) 30 mg PO DAILY [facility]; Protocol Last Admin: 02/10/23 08:26 Dose: 30 mg Documented By: LIZZIE Omeprazole (Omeprazole 40 Mg Capsule.Dr) 40 mg PO DAILY@0630 [facility] Last Admin: 02/10/23 05:46 Dose: 40 mg Documented By: DALTON Ondansetron HCl (Ondansetron Hcl 4 Mg/2 Ml Vial) 4 mg IVPUSH Q8H PRN PRN Reason: Nausea and Vomiting Last Admin: 02/10/23 08:33 Dose: 4 mg Documented By: LIZZIE Senna (Sennosides 8.6 Mg Tablet) 8.6 mg PO DAILY [facility] Last Admin: 02/10/23 08:25 Dose: 8.6 mg Documented By: LIZZIE Simethicone (Simethicone 80 Mg Tab.Chew) 80 mg PO QIDWMHS [facility] Last Admin: 02/10/23 08:25 Dose: 80 mg Documented By: LIZZIE Sodium Chloride (0.9 % Sodium Chloride Flush 3 Ml Syringe) 3 ml IVFLUSH QSHIFT [facility] Last Admin: 02/10/23 08:26 Dose: 3 ml Documented By: LIZZIE Tizanidine HCl (Tizanidine Hcl 4 Mg Tablet) 4 mg PO TID PRN PRN Reason: muscle spasm Topiramate (Topiramate 25 Mg Tablet) 25 mg PO DAILY [facility] Last Admin: 02/10/23 08:25 Dose: 25 mg Documented By: LIZZIE Vitamin D (Cholecalciferol (Vitamin D3) 25 Mcg Tablet) 50 mcg PO DAILY [facility] Last Admin: 02/10/23 08:25 Dose: 50 mcg Documented By: LIZZIE Labs 02/10/23 05:42 02/10/23 05:42 Labs: Laboratory Results - last 24 hr 02/09/23 02/09/23 02/10/23 16:28 20:37 05:42 MCV 86.7 MCH 28.9 MCHC 33.3 RDW 15.6 Plt Count 187 MPV 9.5 Absolute Nucleated RBC 0.000 Nucleated RBC % (auto) 0.0 Anion Gap 15 Estim Creat Clear Calc 9.7 Estimated GFR 6 POC Glucose 134 H 159 H Fasting Glucose 123 H Calcium 8.6 02/10/23 02/10/23 07:23 10:54 MCV MCH MCHC RDW Plt Count MPV Absolute Nucleated RBC Nucleated RBC % (auto) Anion Gap Estim Creat Clear Calc Estimated GFR POC Glucose 139 H 159 H Fasting Glucose Calcium Assessment and Plan (1) Nausea & vomiting: Status: Acute (2) ESRD (end stage renal disease): Status: Acute Plan A 57 years old lady with PMH of ESRD on HD, HTN, HLD, DM among others who presents to the hospital from HD center with AMS and elevated BP readings. Chest pain Likely a result of hypertensive urgency and musckoskeletal pain EKG w no changes of ST\T-wave to suggest ACS Negative trop keep on tele, repeat EKG for pain Hypertensive urgency Improved Changed Amlodipine to Nifedipine Losartan monitor BP acute hyponateremia fluid restrict monitor Nausea and vomiting could be gastroparesis, gastritis negative viral panel Reglan PPO Pending GI eval ESRD on HD Nephrology following Dialysis today, TTS DVT PPx Heparin reason for continued hospitalization:significant hyponatremia - close inpatient monitoring required Time Spent With Patient Time: Total time managing care of this patient today ____ minutes. Quality Stroke Does the patient have a stroke diagnosis?: No VTE Prior VTE?: No VTE Risk Level:: Medical - moderate - high VTE Device Contraindication: Treatment Not Indicated VTE Drug Contraindication: N/A - Med Ordered
[2023-02-10] MEDS: Insulin Lispro 100 UNIT/ML 3 ML VIAL SUBCUT (12:07)
[2023-02-10 12:27] LABS: Anion Gap 15 (12-20); Blood Urea Nitrogen 32 mg/dL (9-16); Calcium 8.6 mg/dL (8.4-10.2); Carbon Dioxide 25 mmol/L (22-29); Chloride 89 mmol/L (96-108); Creatinine Clr Calc Pharmacy 9.5; Estimated Glomerular Filt Rate 6; Glucose Random 139 mg/dL (60-115); Potassium 4.7 mmol/L (3.3-5.1); Sodium 124 mmol/L (135-145)
[2023-02-10 17:23] VITALS: BP 138/66; PULSE 73; RESP 20; TEMP 36.8; O2SAT 96
[2023-02-10 18:17] LABS: Glucose, Whole Blood 112 mg/dL (60-115)
[2023-02-10 19:08] VITALS: BP 100/56; PULSE 72; RESP 20; TEMP 36.1; O2SAT 97
[2023-02-10 19:53] LABS: Glucose, Whole Blood 134 mg/dL (60-115)
[2023-02-10] MEDS: Morphine Sulfate 2 MG/ML CARTRIDGE IVPUSH (22:08)
--- NOTE | 2023-02-10 23:08 | PM.PNNEP ---
Subjective Subjective Date of Service: 02/10/23 Interval history: nasuea On HD Physical Exam Vital Signs: Vital Signs: Last Vital Signs Temp 96.9 F 02/10/23 19:08 Pulse 72 02/10/23 19:08 Resp 20 02/10/23 19:08 BP 100/56 L 02/10/23 19:08 Pulse Ox 97 02/10/23 19:08 O2 Del Method Room Air 02/10/23 19:08 O2 Flow Rate 2 02/06/23 07:14 BMI result Body Mass Index 40.9 Const: Other: Constitutional : Awake, interactive, not in distress Neck : Normal inspection, Supple Cardiovascular : RRR, no JVP, no lower extremity edema Respiratory : good bilateral air entry, no crackles, wheezes or rhonchi Gastrointestinal: soft, lax, Normal bowel sounds, Non tender Skin : Warm, Dry, LUE dialysis fistula Neurological : Alert & oriented x3, No focal deficit Objective Data Labs 02/10/23 05:42 02/10/23 11:52 Labs: Laboratory Results - last 24 hr 02/10/23 02/10/23 02/10/23 05:42 07:23 10:54 WBC 6.5 RBC 3.15 L Hgb 9.1 L Hct 27.3 L MCV 86.7 MCH 28.9 MCHC 33.3 RDW 15.6 Plt Count 187 MPV 9.5 Absolute Nucleated RBC 0.000 Nucleated RBC % (auto) 0.0 Sodium 124 L Potassium 4.0 Chloride 91 L Carbon Dioxide 22 Anion Gap 15 BUN 30 H Creatinine 6.81 H* Estim Creat Clear Calc 9.7 Estimated GFR 6 POC Glucose 139 H 159 H Random Glucose Fasting Glucose 123 H Calcium 8.6 02/10/23 02/10/23 02/10/23 11:52 17:10 19:45 WBC RBC Hgb Hct MCV MCH MCHC RDW Plt Count MPV Absolute Nucleated RBC Nucleated RBC % (auto) Sodium 124 L Potassium 4.7 Chloride 89 L Carbon Dioxide 25 Anion Gap 15 BUN 32 H Creatinine 6.95 H* Estim Creat Clear Calc 9.5 Estimated GFR 6 POC Glucose 112 134 H Random Glucose 139 H Fasting Glucose Calcium 8.6 Procedures Date of Service Date of Service: 02/10/23 Assessment & Plan Assessment and plan (1) ESRD (end stage renal disease): Status: Acute Assessment and Plan: ESKD due to diabetic nephropathy (biopsy proven) followed by Dr Ocasio usually has HD at [place] [facility] tts1 via [facility] presented with hypertensive emergency- Better nephrogenic anemia REC GI f/u re Nausea HD per schedule NA should improve with HD. Fluid restriction renal diet retacrit phosphate binders (2) Chronic anemia: Status: Acute (3) Nausea & vomiting: Status: Acute Time Spent With Patient Time: Total time managing care of this patient today ____ minutes. Progress Note: Quality Stroke Does the patient have a stroke diagnosis?: No
[2023-02-10 23:20] VITALS: BP 110/53; PULSE 77; RESP 18; TEMP 36.3; O2SAT 97
[2023-02-11] MEDS: oxyCODONE HCl Immed Release 5 MG TABLET PO ×2 (00:25→06:17)
[2023-02-11] MEDS: 0.9 % Sodium Chloride Flush 3 ML SYRINGE IVFLUSH ×2 (00:26→08:18)
[2023-02-11 04:00] VITALS: BP 104/58; PULSE 81; RESP 20; TEMP 36.2; O2SAT 96
[2023-02-11 05:53] LABS: Hematocrit 28.3 % (37.0-47.0); Hemoglobin 9.2 g/dl (12.0-16.0); Mean Corpuscular HGB Conc 32.5 g/dl (31.0-35.0); Mean Corpuscular Hemoglobin 29.2 pg (27.0-33.0); Mean Corpuscular Volume 89.8 fL (80.0-98.0); Mean Platelet Volume 10.2 fL (9.4-12.3); Platelet Count 217 X10*3/uL (160-400); Red Blood Count 3.15 X10*6/uL (4.20-5.50); Red Cell Distribution Width 16.2 % (11.0-16.0)
[2023-02-11 06:15] LABS: Anion Gap 14 (12-20); Blood Urea Nitrogen 15 mg/dL (9-16); Calcium 8.4 mg/dL (8.4-10.2); Carbon Dioxide 24 mmol/L (22-29); Chloride 95 mmol/L (96-108); Creatinine Clr Calc Pharmacy 16.8; Estimated Glomerular Filt Rate 12; Glucose Fasting 99 mg/dL (60-99); Potassium 3.8 mmol/L (3.3-5.1); Sodium 129 mmol/L (135-145)
[2023-02-11] MEDS: Omeprazole 40 MG CAPSULE.DR PO (06:18)
[2023-02-11] MEDS: Heparin Sodium,Porcine 5,000 UNIT/ML VIAL 5000 UNIT SUBCUT (06:18)
[2023-02-11 07:16] VITALS: BP 111/58; PULSE 76; RESP 16; TEMP 36; O2SAT 96
[2023-02-11 07:33] LABS: Glucose, Whole Blood 107 mg/dL (60-115)
[2023-02-11] MEDS: levETIRAcetam 500 MG TABLET PO (08:18)
[2023-02-11] MEDS: Losartan Potassium 25 MG TABLET PO (08:19)
[2023-02-11] MEDS: Simethicone 80 MG TAB.CHEW PO (08:19)
[2023-02-11] MEDS: Topiramate 25 MG TABLET PO (08:20)
[2023-02-11] MEDS: NIFEdipine ER 30 MG TAB.ER.24 PO (08:20)
[2023-02-11] MEDS: Cholecalciferol (Vitamin D3) 25 MCG TABLET 50 MCG PO (08:20)
[2023-02-11] MEDS: Atorvastatin Calcium 80 MG TABLET PO (08:20)
[2023-02-11] MEDS: FLUoxetine HCl 10 MG CAPSULE PO (08:20)
[2023-02-11] MEDS: Dicyclomine HCl 10 MG CAPSULE 20 MG PO (08:20)
[2023-02-11] MEDS: Sennosides 8.6 MG TABLET PO (08:20)
[2023-02-11] MEDS: Ferrous Sulfate 324 MG TABLET.DR PO (08:20)
[2023-02-11] MEDS: FLUoxetine HCl 20 MG CAPSULE PO (08:20)
[2023-02-11] MEDS: Aspirin 81 MG TAB.CHEW PO (08:21)
[2023-02-11] MEDS: Gabapentin 100 MG CAPSULE PO (08:21)
[2023-02-11] MEDS: Insulin Glargine,Hum.rec.anlog 100 UNIT/ML 10 ML VIAL 28 UNIT SUBCUT (08:21)
[2023-02-11] MEDS: Metoclopramide HCl 5 MG TABLET PO (08:21)
[2023-02-11] MEDS: Cyanocobalamin (Vitamin B-12) 1,000 MCG TABLET 1000 MCG PO (08:21)
[2023-02-11] MEDS: Famotidine 20 MG TABLET PO (08:21)
--- NOTE | 2023-02-11 09:36 | P.DS_ITS ---
DS: Providers Provider Date of Service: 02/11/23 Date of admission: 02/05/23 17:55 Primary care physician: Delfina Butler MD Consults: 02/05/23 18:01 Consult to Nephrology Routine Consulting Provider: Mateus Campa Reason for consultation: Luke of HD 02/07/23 12:01 Consult to Gastroenterology Routine Consulting Provider: Dickson Bond Reason for consultation: Nausea and vomiting for 2 wks in Dialysis patient. DS: Diagnosis Discharge Diagnosis (1) ESRD (end stage renal disease): Status: Acute (2) Chronic anemia: Status: Acute (3) Nausea & vomiting: Status: Acute DS: Summary Hospital Course Hospital Course: Admission note HPI A 57 years old lady with PMH of ESRD on HD, HTN, HLD, DM among others who presents to the hospital from HD center with AMS and elevated BP readings. The patient reports that for almost a week she has been feeling off with less energy and pain all over her body. reporting chills but no fever. had throat congestion, cough,muscle ache but no changes in bowel habit. Today she went to dialysis as scheduled and by the end of her sessions she started feeling pain over her chest and loin. couldnt remember much after that incident as she woke up in ED. She was found to have elevated BP readings of >200 SBP. responded to IV medications. Blood work with mild hypokalemia post dialysis. Admitted for evaluation and close monitoring. Hospital course Admitted for evaluation of hypertensive urgency and chest pain. EKG w no changes of ST\T-wave to suggest ACS. Negative trop. kept on tele with no abnormal waves reported. Blood pressure improved with IV and oral medications. she was evaluated by Customer Support Engineer who recommended changing Amlodipine to Nifedipine. Started on Losartan as well with good tolerance. chest pain resolved. she was able to tolerate diet. To continue dialysis as outpatient. Course complicated by acute hyponatremia which resolved after dialysis. For nausea vomiting differential includes gastroparesis, gastritis, irritable bowel syndrome, CTA abdomen was unremarkable. She was seen by GI who recommended increasing Bentyl, continue PPI. For end-stage renal disease was continue on dialysis. Time Spent with Patient Time attestation: Total time managing care of this patient today ____ minutes. Discharge coordination time: Greater than 30 minutes Quality: Safe Use of Opioids Does Pt have an Active Cancer Diagnosis on the Problem List?: No Quality: Stroke Does the patient have a stroke diagnosis?: No Physical Exam Vital Signs: Vital Signs: Last Vital Signs Temp 96.8 F 02/11/23 07:16 Pulse 76 02/11/23 07:16 Resp 16 02/11/23 07:16 BP 111/58 L 02/11/23 07:16 Pulse Ox 96 02/11/23 07:16 O2 Del Method Room Air 02/11/23 07:16 O2 Flow Rate 2 02/06/23 07:14 BMI result Body Mass Index 40.9 Const: Other: Constitutional : Awake, interactive, not in distress Neck : Normal inspection, Supple Cardiovascular : RRR, no JVP, no lower extremity edema Respiratory : good bilateral air entry, no crackles, wheezes or rhonchi Gastrointestinal: soft, lax, Normal bowel sounds, Non tender Skin : Warm, Dry, LUE dialysis fistula Neurological : Alert & oriented x3, No focal deficit DS: Data Data Completed and Pending Completed studies during hospitalization [Text1]: Procedures Assistance with Respiratory Ventilation, Less than 24 Consecutive Hours, Continuous Positive Airway Pressure (12/24/21) Excision of Left Kidney, Percutaneous Approach, Diagnostic (12/24/21) Fluoroscopy of Superior Vena Cava, Guidance (01/23/22) Insertion of Infusion Device into Superior Vena Cava, Percutaneous Approach (01/23/22) Introduction of Other Thrombolytic into Peripheral Vein, Percutaneous Approach (03/06/22) Performance of Urinary Filtration, Intermittent, Less than 6 Hours Per Day (03/06/22) Transfusion of Nonautologous Red Blood Cells into Peripheral Vein, Percutaneous Approach (01/23/22) Ultrasonography of Superior Vena Cava, Guidance (01/23/22) Labs on day of discharge: Laboratory Results - last 24 hr 02/10/23 02/10/23 02/10/23 10:54 11:52 17:10 WBC RBC Hgb Hct MCV MCH MCHC RDW Plt Count MPV Absolute Nucleated RBC Nucleated RBC % (auto) Sodium 124 L Potassium 4.7 Chloride 89 L Carbon Dioxide 25 Anion Gap 15 BUN 32 H Creatinine 6.95 H* Estim Creat Clear Calc 9.5 Estimated GFR 6 POC Glucose 159 H 112 Random Glucose 139 H Fasting Glucose Calcium 8.6 02/10/23 02/11/23 02/11/23 19:45 05:26 07:14 WBC 7.0 RBC 3.15 L Hgb 9.2 L Hct 28.3 L MCV 89.8 MCH 29.2 MCHC 32.5 RDW 16.2 H Plt Count 217 MPV 10.2 Absolute Nucleated RBC 0.000 Nucleated RBC % (auto) 0.0 Sodium 129 L Potassium 3.8 Chloride 95 L Carbon Dioxide 24 Anion Gap 14 BUN 15 Creatinine 3.94 H Estim Creat Clear Calc 16.8 Estimated GFR 12 POC Glucose 134 H 107 Random Glucose Fasting Glucose 99 Calcium 8.4 Discharge Plan Discharge Anticipated Discharge Date/Time: 02/07/23 09:22 Patient Disposition: Home, Self-Care Discharge Diagnosis: Hypertensive urgency Referrals: Delfina Butler MD [Primary Care Provider] - 1 Week Discharge Medications: New nifedipine 30 mg Tablet Extended Release 24hr 30 mg PO DAILY Qty: 90 0RF Protocol: Hold for SBP< HOLD for SBP < : 90 losartan 25 mg Tablet 25 mg PO DAILY Qty: 90 0RF Protocol: Hold for SBP< HOLD for SBP < : 90 oxycodone 5 mg tablet 5 mg PO Q8H PRN (Reason: pain (scale score 7-10)) Qty: 14 0RF Rx Instructions: Partial Fill upon patient request. metoclopramide HCl 5 mg Tablet 5 mg PO TIDAC PRN (Reason: nausea) Qty: 90 0RF dicyclomine 10 mg Capsule 20 mg PO TIDAC Qty: 240 0RF oxycodone 5 mg Tablet 5 mg PO Q6H PRN (Reason: Pain, Moderate(Pain Scale 4-6)) Qty: 15 0RF Rx Instructions: Partial Fill upon patient request. Continued atorvastatin 80 mg tablet 1 tab PO DAILY loperamide 2 mg capsule 1 cap PO Q6H PRN (Reason: Diarrhea) cyanocobalamin (vitamin B-12) [Vitamin B-12] 1,000 mcg tablet 1 tab PO DAILY pantoprazole 40 mg tablet,delayed release (DR/EC) 1 tab PO DAILY@0630 aspirin 81 mg tablet,chewable 1 tab PO DAILY gabapentin 100 mg capsule 1 cap PO TID insulin lispro 100 unit/mL insulin pen See Protocol subcut TIDAC Protocol: Insulin Correction Scale Less than or equal to 110 ---- Give (units): 0 111 to 150 Give (units): 0 151 to 200 Give (units): 2 201 to 250 Give (units): 4 251 to 300 Give (units): 6 301 to 350 Give (units): 8 Greater than 350 Give (units): 10 Call MD if Blood Glucose > : 350 Rx Instructions: sliding scale cholecalciferol (vitamin D3) [Vitamin D3] 50 mcg (2,000 unit) capsule 1 cap PO DAILY Ozempic 1 mg/dose (2 mg/1.5 mL) pen injector 1 mg SUBCUT SA@0900 insulin glargine [Lantus Solostar U-100 Insulin] 100 unit/mL (3 mL) insulin pen 40 unit subcut DAILY tizanidine 4 mg tablet 1 tab PO TID PRN (Reason: muscle spasm) acetaminophen 500 mg Tablet 500 mg PO Q8H PRN (Reason: Pain) fluoxetine 10 mg capsule 10 mg PO DAILY fluoxetine 20 mg capsule 20 mg PO DAILY sennosides [senna] 8.6 mg tablet 8.6 mg PO DAILY levetiracetam 500 mg tablet 500 mg PO DAILY topiramate 25 mg tablet 25 mg PO DAILY melatonin 3 mg tablet 9 mg PO DAILY PRN (Reason: Sleep) famotidine 20 mg tablet 20 mg PO DAILY calcipotriene 0.005 % cream 1 appl topical BID PRN (Reason: psoriasis) ferrous sulfate 325 mg (65 mg iron) tablet,delayed release (DR/EC) 325 mg PO BID ondansetron 4 mg tablet,disintegrating 4 mg PO Q8H PRN (Reason: Nausea And Vomiting) clotrimazole 1 % Cream 1 appl TOPICAL BID PRN (Reason: skin folds) lactulose 10 gram/15 mL solution 15 ml PO BEDTIME Discontinued amlodipine 10 mg tablet 1 tab PO DAILY dicyclomine 10 mg Capsule 10 mg PO TID PRN (Reason: Spasms) Discharge Orders: Discharge Order (Routine); Ordered 02/11/23 Ordered By: Toby Montero Diet: Low salt diet Activity on Discharge: As tolerated Stand Alone Forms: Patient Portal Discharge page Care Plan Goals: Read below Health Concerns: Read below Plan of Treatment: Read below Assessment: Stop Amlodipine Start Nifedipine and Losartan Follow BP readings at home and 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
[2023-02-11] MEDS: ondansetron HCL 4 MG/2 ML VIAL IVPUSH (10:41)
[2023-02-11] MEDS: Morphine Sulfate 2 MG/ML CARTRIDGE IVPUSH (10:41)
--- NOTE | 2023-02-11 11:13 | MHC.CM.PN ---
Pt medically cleared for D/C home self-care. Pts transported her home.
== END 2023-02-11 11:39 | disposition home or self-care (01) | DRG 199 ==
LOC: HO.ED 16:41 → HO.EDOVER 18:00 → HO.IMC 02-07 07:57 → HO.EDOVER 02-07 08:04 → HO.IMC 02-07 08:11 → HO.EDOVER 02-07 09:55 → HO.IMC 02-07 16:45
PROVIDERS: Physician Assistant; Admitting Provider Student in an Organized Health Care Education/Training Program; Emergency Provider Internal Medicine; PCP Internal Medicine; Visit Provider Internal Medicine
DX: I16.0 Hypertensive urgency (principal); N18.6 End stage renal disease; D63.1 Anemia in chronic kidney disease; E11.22 Type 2 diabetes mellitus with diabetic chronic kidney disease; E11.43 Type 2 diabetes mellitus with diabetic autonomic (poly)neuropathy; E87.1 Hypo-osmolality and hyponatremia; K31.84 Gastroparesis; I12.0 Hypertensive chronic kidney disease with stage 5 chronic kidney disease or end stage renal disease; G47.33 Obstructive sleep apnea (adult) (pediatric); K29.70 Gastritis, unspecified, without bleeding; K58.9 Irritable bowel syndrome, unspecified; E66.01 Morbid (severe) obesity due to excess calories; Z68.41 Body mass index [BMI] 40.0-44.9, adult; Z99.2 Dependence on renal dialysis; Z87.891 Personal history of nicotine dependence; Z20.822 Contact with and (suspected) exposure to COVID-19; Z91.040 Latex allergy status; Z88.0 Allergy status to penicillin; Z79.4 Long term (current) use of insulin; Z79.82 Long term (current) use of aspirin; Z79.85 Long-term (current) use of injectable non-insulin antidiabetic drugs; Z79.899 Other long term (current) drug therapy
CPT/HCPCS: 36415; 71045; 71275; 74174; 80048; 80076; 81001; 82947; 83735; 84484; 85025; 85027; 87633; 87635; 90999; 93005; 99285; J1170; J1643; J1650; J2270; J2405; Q9967

== ENCOUNTER → 2023-02-05 17:55 | Outpatient (BNV) | payer OTHER, SELFPAY | PROVIDERS: Admitting Provider Student in an Organized Health Care Education/Training Program; Emergency Provider Internal Medicine; PCP Internal Medicine; Visit Provider Student in an Organized Health Care Education/Training Program | DX: N18.6 End stage renal disease (principal); D64.9 Anemia, unspecified; R11.2 Nausea with vomiting, unspecified | CPT/HCPCS: 99223; 99232; 99233; 99239 ==